=== PATIENT | female | born 1965 ===

== ENCOUNTER 2020-02-26 12:11 | Outpatient (REF) | payer OTHER, SELFPAY ==
--- NOTE | 2020-02-26 13:33 | XR_ITS ---
EXAMINATION: XR BILATERAL WRIST/HANDS CLINICAL INFORMATION: Pain. COMPARISON: None TECHNIQUE: 4 views each hand. FINDINGS: LEFT HAND: There is loss of PIP, DIP and MCP joint space with no bony erosive changes, calcification or loose body seen. No visible acute fracture or dislocation seen. Scaphoid bone is normal. RIGHT HAND: There is mild loss of PIP, DIP and MCP joint space with periarticular spurring. No loose body seen. No periarticular calcification or soft tissue swelling. The scaphoid bone is normal. XR/XR hand wrist LT IMPRESSION: Unremarkable bilateral hand exam.
--- NOTE | 2020-02-26 13:33 | XR_ITS ---
EXAMINATION: XR BILATERAL WRIST/HANDS CLINICAL INFORMATION: Pain. COMPARISON: None TECHNIQUE: 4 views each hand. FINDINGS: LEFT HAND: There is loss of PIP, DIP and MCP joint space with no bony erosive changes, calcification or loose body seen. No visible acute fracture or dislocation seen. Scaphoid bone is normal. RIGHT HAND: There is mild loss of PIP, DIP and MCP joint space with periarticular spurring. No loose body seen. No periarticular calcification or soft tissue swelling. The scaphoid bone is normal. XR/XR hand wrist RT IMPRESSION: Unremarkable bilateral hand exam.
[2020-02-26 13:44] LABS: MANUAL DIFF FLAG NO
[2020-02-26 13:48] LABS: Basophils Percent Auto 0.5 % (0-2); Eosinophils Absolute Auto 0.1 X10*3/uL (0.0-0.4); Eosinophils Percent Auto 2.2 % (0-4); Hematocrit 34.3 % (37-47); Imm Gran Abs Auto 0.01 X10*3/uL (0.00-0.03); Imm Gran Pct Auto 0.2 % (0.0-0.4); Lymphocytes Absolute Auto 1.3 X10*3/uL (1.2-4.9); Lymphocytes Percent Auto 31.4 % (20-40); Mean Corpuscular HGB Conc 32.1 g/dl (31.0-35.0); Mean Corpuscular Hemoglobin 26.7 pg (27.0-33.0); Mean Corpuscular Volume 83.3 fL (80-98); Mean Platelet Volume 10.5 fL (9.4-12.3); Monocytes Absolute Auto 0.3 X10*3/uL (0.1-1.2); Monocytes Percent Auto 6.7 % (2-11); Neutrophils Absolute Auto 2.4 X10*3/uL (2.0-8.3); Platelet Count 197 X10*3/uL (160-400); Red Blood Count 4.12 X10*6/uL (4.20-5.50); White Blood Count 4.1 X10*3/uL (4.8-10.8)
[2020-02-26 14:04] LABS: Glucose Urine UA NEG (NEG); Leukocyte Esterase Urine 1+ (NEG); Nitrite Urine NEG (NEG); PH 5.5 (5.0-8.0); Specific Gravity - Urine >= 1.030 (1.005-1.025); Urine Blood NEG (NEG); Urine Ketones NEG (NEG); Urine Protein NEG (NEG-TRACE)
[2020-02-26 14:09] LABS: Appearance Urine HAZY; Color Urine YELLOW
[2020-02-26 14:19] LABS: Potassium 4.4 mmol/l (3.3-5.1)
[2020-02-26 14:20] LABS: Alanine Aminotransferase 66 U/L (0-31); Albumin Level 4.3 g/dL (3.5-5.0); Alkaline Phosphatase 69 U/L (39-117); Anion Gap 14 (12-20); Aspartate Amino Transferase 44 U/L (5-31); Bilirubin Total 0.2 mg/dL (0.0-1.0); Blood Urea Nitrogen 14 mg/dL (9-16); C Reactive Protein 1.93 mg/dL (< or = 0.50); Calcium 9.1 mg/dL (8.4-10.2); Carbon Dioxide 26 mmol/L (22-29); Chloride 108 mmol/L (96-108); Estimated Glomerular Filt Rate > 60; Glucose Random 275 mg/dL (60-115); Sodium 144 mmol/L (135-145); Total Protein 6.7 g/dL (6.5-8.0)
[2020-02-26 14:24] LABS: Rheumatoid Factor < 15.0 IU/mL (<15.0)
[2020-02-26 14:29] LABS: Bacteria Urine 2+ /LPF; RBC Urine 0 /HPF (0); Squamous Epithelial Cell Urine 3+ /LPF
[2020-02-26 14:30] LABS: Mucus Urine TRACE /LPF
[2020-02-26 14:36] LABS: Erythrocyte Sedimentation Rate 17 MM/HR (0-20)
[2020-02-27 08:03] LABS: HBsAGNum1 0.15 S/CO (0.00-0.99); Hepatitis A Antibody IgM 0.12 Index (0-0.79); Hepatitis B Surface Antigen Negative (Negative); ~Hepatitis A Antibody IgM Nonreactive (Nonreactive)
[2020-02-27 08:18] LABS: HBS Num1 42.28 mIU/mL (0-7.99); HBc Num1 0.05 S/CO (0.00-0.79); Hepatitis B Core Antibody Nonreactive (Nonreactive); ~HepC Num1 0.05 S/CO (0.00-0.79); ~Hepatitis B Surface Antibody REACTIVE (Nonreactive); ~Hepatitis C Antibody Nonreactive (Nonreactive)
[2020-02-27 11:13] LABS: Complement C3 176 mg/dL (83-193)
[2020-02-27 14:01] LABS: Anti DNA DS Antibody <1 IU/mL; Antibody to SS-A Antigen <1.0 NEG AI (<1.0 NEG); Antibody to SS-B Antigen <1.0 NEG AI (<1.0 NEG); SM/Ribonucleoprotein Ab <1.0 NEG AI (<1.0 NEG); Scleroderma 70 Antibody <1.0 NEG AI (<1.0 NEG); Smith Protein <1.0 NEG AI (<1.0 NEG)
[2020-02-27 21:12] LABS: Cyclic Citrullinated Peptide <16 UNITS
[2020-03-01 14:27] LABS: Vitamin D 25-OH, D2 <4 ng/mL; Vitamin D 25-OH, D3 28 ng/mL; Vitamin D 25-OH, Total 28 ng/mL (30-100)
[2020-03-01 15:12] LABS: Anti Nuclear Antibody Pattern Nuclear, Homogeneous; Anti Nuclear Antibody Screen POSITIVE (NEGATIVE); Anti Nuclear Antibody Titer 1:40 titer
== END 2020-02-26 12:12 | disposition home or self-care (01) ==
LOC: HO.LAB 12:11
PROVIDERS: PCP Family Medicine; Referring Provider Family Medicine; Visit Provider Student in an Organized Health Care Education/Training Program
DX: R76.8 Other specified abnormal immunological findings in serum (principal); M35.9 Systemic involvement of connective tissue, unspecified
CPT/HCPCS: 36415; 73110; 73130; 80053; 81001; 82306; 85025; 85652; 86038; 86039; 86140; 86160; 86200; 86225; 86235; 86431; 86704; 86706; 86709; 86803; 87340; 99202

== ENCOUNTER → 2020-05-12 14:41 | Outpatient (BNVA) | payer OTHER, SELFPAY | PROVIDERS: PCP Family Medicine; Visit Provider Student in an Organized Health Care Education/Training Program ==

== ENCOUNTER → 2020-08-19 13:31 | Outpatient (BNVA) | payer OTHER, SELFPAY | PROVIDERS: PCP Family Medicine; Visit Provider Student in an Organized Health Care Education/Training Program | DX: R76.8 Other specified abnormal immunological findings in serum (principal) | CPT/HCPCS: 99212 ==

== ENCOUNTER 2023-09-11 19:03 | Emergency (ER) | payer OTHER, SELFPAY ==
--- NOTE | 2023-09-11 19:14 | ED.GENADULT ---
HPI - General Adult General Chief complaint: General Medical Stated complaint: Hemorrhoids Time Seen by Provider: 09/11/23 20:12 Source: patient and RN notes reviewed Mode of arrival: ambulatory Limitations: no limitations History of Present Illness ED Provider: Tea Nixon PA-C HPI narrative: This is a 58-year-old female, with history of fibromyalgia, diabetes, hyperlipidemia, PTSD, osteoarthritis, who presents emergency department with complaints of external hemorrhoids x2 weeks. Patient states that she has a history of external hemorrhoids in the past which she had to have ?operated on?. [facility] and was started on hydrocortisone/lidocaine cream which she has been using without any relief. She has been also performing Sitz baths without relief. She denies any fevers or chills. She is taking stool softeners. Her hemorrhoid developed after having diarrhea 2 weeks ago. She states that her stools now soft. No bloody or black stool. No other complaints or concerns at this time. MD complaint: Hemorrhoids Onset (ago): week(s) Quality: aching Pain Consistency: constant Relieving factors: none Exacerbating factors: none Associated symptoms: denies other symptoms Treatments prior to arrival: none Related Data Home Medications ?Medication ?Instructions ?Recorded ?Confirmed cholecalciferol (vitamin D3) 25 25 mcg PO DAILY 02/26/20 mcg (1,000 unit) capsule escitalopram oxalate 20 mg tablet 20 mg PO DAILY 02/26/20 gabapentin 100 mg capsule 200 mg PO BID 02/26/20 hydroxychloroquine 200 mg tablet 200 mg PO BID 02/26/20 (Plaquenil) melatonin 3 mg capsule 6 mg PO BEDTIME 02/26/20 meloxicam 15 mg tablet 15 mg PO DAILY 02/26/20 metformin 750 mg tablet,extended 1,500 mg PO DAILY 02/26/20 release 24 hr multivitamin 1 tab PO DAILY 02/26/20 trazodone 100 mg tablet 200 mg PO BEDTIME 02/26/20 Previous Rx's ?Medication ?Instructions ?Recorded prednisone 5 mg tablet See Rx Instructions PO DAILY #30 08/19/20 tabs acetaminophen 500 mg tablet 500 mg PO Q6H PRN pain #30 tabs 09/11/23 (Tylenol Extra Strength) ibuprofen 600 mg tablet 600 mg PO Q6H PRN pain #30 tabs 09/11/23 morphine 15 mg immediate release 15 mg PO Q6H PRN severe pain 09/11/23 tablet (scale score 7-10) #7 tabs acetaminophen 650 mg 650 mg PO Q8H PRN pain #30 tabs 09/12/23 tablet,extended release (Tylenol 8 Hour) docusate calcium 240 mg capsule 240 mg PO BEDTIME #20 caps 09/12/23 ibuprofen 600 mg tablet 600 mg PO Q6H PRN pain #30 tabs 09/12/23 morphine 15 mg immediate release 15 mg PO Q6H PRN severe pain 09/12/23 tablet (scale score 7-10) #10 tabs polyethylene glycol 3350 17 17 g PO DAILY #119 grams 09/12/23 gram/dose oral powder (Miralax) Allergies Allergy/AdvReac Type Severity Reaction Status Date / Time ending in statin AdvReac Severe Muscle Uncoded 09/11/23 23:49 cramps Review of Systems Review of Systems: Yes all other systems are reviewed and are negative Constitutional: Constitutional: Reports as per [facility] Past Medical History Attestation statement: The following information was validated with the patient. Medical History Kidney stone PTSD (post-traumatic stress disorder) Myopia Nonalcoholic steatohepatitis (HAMMONDS) Depression Undifferentiated connective tissue disease Surgical History History of right knee joint replacement H/O: hysterectomy History of cholecystectomy Social History Social History Alcohol intake: current Alcohol intake frequency: a few times a month Alcohol type: wine and hard liquor Patient Tobacco Use Status: Never used Tobacco e-Cigarette/Vaping Use: Never Used Physical Exam ED Vital Signs: Vital Signs - 24 hr 09/11/23 19:15 09/11/23 22:57 Temperature 98.9 F 98.9 F Pulse Rate 101 H 101 H Respiratory Rate 20 20 Blood Pressure 150/87 H 150/87 H Pulse Oximetry 97 97 Oxygen Delivery Method Room Air Room Air BMI result Body Mass Index 42.9 Const General: cooperative, comfortable and no acute distress Orientation/consciousness: patient oriented x3 Limitations: no limitations HENMT Head: Yes normal to inspection, Yes normocephalic and Yes atraumatic Ears: hearing grossly normal bilaterally General nose exam: Normal external nose present Face and sinus: Yes normal facial exam Mouth: Normal oral and palatal mucosa present, oropharynx normal and moist mucous membranes Throat: Yes posterior oropharynx normal Eyes General: appearance normal, both eyes and all related structures Eyelids: Yes eyelids normal Conjunctivae: conjunctivae normal Sclerae: sclerae normal Pupils: Equal, round and reactive pupils present EOM: EOMs intact bilaterally Neck Neck: Yes normal visual inspection, Yes full ROM and Yes no lymphadenopathy Lymphatic: no lymphadenopathy noted Chest Chest palpation & inspection: normal inspection of the chest Resp Effort & Inspection: normal respiratory effort and able to speak in complete sentences Auscultation: clear to auscultation bilaterally, no crackles, no rales, no rhonchi and no wheezes Cardio Rate: regular rate Rhythm: regular rhythm Heart sounds: S1 normal heart sound present and S2 normal heart sound present GI Other: External hemroid noted at the 3 oclock position with punctate thombosed region noted at the 11 o clock position, exquisitely tender to palpation. Inspection: Yes normal to inspection Skin General skin exam: no rashes or lesions noted Trauma: no lacerations or abrasions Wounds: no wounds Neuro General: patient oriented x3 and moves all extremities Cranial nerves: Yes Equal, round and reactive pupils present Extrem General: Yes normal to inspection Right upper extremity: normal to inspection Left upper extremity: normal to inspection Right lower extremity: normal to inspection Left lower extremity: normal to inspection Course Course Course Narrative: This is a Rapid Medical Exam performed in triage by Grace Hernandez PA-C. Full HPI, ROS and PE to be performed by primary ED provider. 58 year-old F w/ PMHx hemorrhoids w/hemorrhoidectomy presenting to the ED c/o worsening rectal pain due to hemorrhoids. Has been using hydrocortisone/lidocaine cream w/o relief, states she cannot sit. Reports some bleeding initially but not anymore. denies abdominal pain PE: standing during entire triage Plan: Physical exam Medications Administered Discontinued Medications Generic Name Dose Route Start Last Admin Trade Name Troy PRN Reason Stop Dose Admin Lidocaine 1 appl 09/11/23 20:50 09/11/23 21:05 Lidocaine 5 % Ointment 35 Gm TOPICAL 09/11/23 20:51 1 appl ONCE ONE Administration Protocol Lidocaine HCl 5 ml 09/11/23 22:17 09/11/23 22:41 Lidocaine Hcl 1 % Mpf 5 Ml Vial INFILTRATI 09/11/23 22:18 5 ml ONCE ONE Administration Morphine Sulfate 4 mg 09/11/23 20:50 09/11/23 21:04 Morphine Sulfate 4 Mg/Ml Cartridge IVPUSH 09/11/23 20:51 4 mg ONCE ONE Administration Protocol Procedures Procedure Narrative Procedure Narrative: -anal area was cleaned with Betadine -5 mL of 1% lidocaine without epinephrine were injected -horizontal elliptical shape incision was made, large blood clot was extracted -packing was applied -patient tolerated well the procedure Medical Decision Making Medical Decision Making MDM Narrative: This is a 58-year-old female, with history of fibromyalgia, diabetes, hyperlipidemia, PTSD, osteoarthritis, who presents emergency department with complaints of external hemorrhoids x2 weeks. On arrival, vital signs revealing slightly hypertensive at 150/87, pulse 101, likely secondary to pain. She is afebrile. Examination was performed with my attending physician, Dr. Schmidt who recommends excision of thrombosed hemorroid, this was performed by my attending physician. Pt pre-medicated with morphine and topical lidocaine administered. See procedure note for further detail. She tolerated the procedure well without any complications or concerns. She was discharged on morphine, ibuprofen/tylenol; given lidocaine topically; encouraged to utilize stool softeners/laxatives to prevent constipation. Also given referral to f/u with general surgery. Differential Diagnosis Differential Diagnoses: The differential diagnosis associated with the presentation includes Abscess, hemorroid, thrombosed hemorroid Discharge Plan Discharge Clinical Impression: Acute hemorrhoid Patient Disposition: Home, Self-Care Instructions: Hemorrhoids (ED), Sitz Bath (DC), Thrombosed Hemorrhoid (ED) Additional Instructions: You were seen in the emergency department due to a hemorrhoid. Continue using the topical lidocaine that we provided to you in the emergency room, especially use this prior to bowel movements. Take morphine as needed for severe pain only. Please alternate between ibuprofen and Tylenol as needed for pain, morphine for severe pain only. Continue performing Sitz baths. Please call Dr. Fallon tomorrow morning. If any new or worsening symptoms occur including but not limited to fevers, chills, worsening pain, swelling, please return for re-evaluation. Prescriptions: New ibuprofen 600 mg tablet 600 mg PO Q6H PRN (Reason: pain) Qty: 30 0RF acetaminophen [Tylenol Extra Strength] 500 mg tablet 500 mg PO Q6H PRN (Reason: pain) Qty: 30 0RF morphine 15 mg tablet 15 mg PO Q6H PRN (Reason: severe pain (scale score 7-10)) Qty: 7 0RF Rx Instructions: Partial Fill upon patient request. No Action morphine 15 mg tablet 15 mg PO Q6H PRN (Reason: severe pain (scale score 7-10)) Qty: 10 0RF Rx Instructions: Partial Fill upon patient request. ibuprofen 600 mg tablet 600 mg PO Q6H PRN (Reason: pain) Qty: 30 0RF acetaminophen [Tylenol 8 Hour] 650 mg tablet extended release 650 mg PO Q8H PRN (Reason: pain) Qty: 30 0RF polyethylene glycol 3350 [Miralax] 17 gram/dose powder 17 g PO DAILY Qty: 119 0RF docusate calcium 240 mg capsule 240 mg PO BEDTIME Qty: 20 0RF hydroxychloroquine [Plaquenil] 200 mg tablet 200 mg PO BID meloxicam 15 mg tablet 15 mg PO DAILY metformin 750 mg tablet extended release 24 hr 1,500 mg PO DAILY trazodone 100 mg tablet 200 mg PO BEDTIME escitalopram oxalate 20 mg tablet 20 mg PO DAILY cholecalciferol (vitamin D3) 25 mcg (1,000 unit) capsule 25 mcg PO DAILY multivitamin Tablet 1 tab PO DAILY gabapentin 100 mg capsule 200 mg PO BID melatonin 3 mg capsule 6 mg PO BEDTIME prednisone 5 mg tablet See Rx Instructions PO DAILY Qty: 30 0RF Rx Instructions: Take 4 tabs x 3 days, 3 tabs x 3 days, 2 tabs x 3 days, 1 tab x 3 days Referrals: [facility] [place] General Surgeons [Provider Group] Stand Alone Forms: Work/School Release Interventions: ED Discharge Assessment Last Done: 09/11/23 22:57 Discharge Date/Time: 09/11/23 22:57 Print Language: Colombian
[2023-09-11 19:15] VITALS: BP 150/87; PULSE 101; RESP 20; TEMP 37.2; O2SAT 97; BMI 42.9
[2023-09-11] MEDS: Morphine Sulfate 4 MG/ML CARTRIDGE IVPUSH (21:04)
[2023-09-11] MEDS: Lidocaine 5 % Ointment 35 GM 1 APPL TOPICAL (21:05)
[2023-09-11] MEDS: Lidocaine HCl 1 % MPF 5 ML VIAL INFILTRATI (22:41)
[2023-09-11 22:57] VITALS: BP 150/87; PULSE 101; RESP 20; TEMP 37.2; O2SAT 97
== END 2023-09-11 22:57 | disposition home or self-care (01) ==
PROVIDERS: Emergency Provider Emergency Medicine; PCP Internal Medicine
DX: K64.5 Perianal venous thrombosis (principal)
CPT/HCPCS: 46083; 96372; 99284; J2270

== ENCOUNTER 2023-09-11 23:40 | Emergency (ER) | payer OTHER, SELFPAY ==
[2023-09-11 23:49] VITALS: BP 137/97; PULSE 92; RESP 18; TEMP 36.8; O2SAT 99; BMI 42.9
--- NOTE | 2023-09-11 23:53 | ED_ITS ---
HPI - General Adult General Chief complaint: General Medical Stated complaint: rectal pain Time Seen by Provider: 09/11/23 23:45 Source: patient and RN notes reviewed Mode of arrival: ambulatory Limitations: no limitations History of Present Illness ED Provider: Tea Nixon PA-C HPI narrative: This is a 58-year-old female, with a history of thrombosed external hemorrhoid, and PTSD who presents emergency department with severe rectal pain. Patient was discharged about an hour and a half ago after having a thrombosed hemorrhoid excised. She went to the pharmacy however the medications were not available, she states that she has had a burning and severe pain to her rectum for the last 45 minutes. No fevers or chills. No chest pain or shortness breast. She endorses history of PTSD and states that she is feeling very overwhelmed at this time. MD complaint: Rectal pain Onset (ago): day(s) Radiation: non-radiation Severity: moderate Quality: burning Pain Consistency: constant Relieving factors: none Exacerbating factors: none Associated symptoms: denies other symptoms Treatments prior to arrival: none Related Data Home Medications ?Medication ?Instructions ?Recorded ?Confirmed cholecalciferol (vitamin D3) 25 25 mcg PO DAILY 02/26/20 mcg (1,000 unit) capsule escitalopram oxalate 20 mg tablet 20 mg PO DAILY 02/26/20 gabapentin 100 mg capsule 200 mg PO BID 02/26/20 hydroxychloroquine 200 mg tablet 200 mg PO BID 02/26/20 (Plaquenil) melatonin 3 mg capsule 6 mg PO BEDTIME 02/26/20 meloxicam 15 mg tablet 15 mg PO DAILY 02/26/20 metformin 750 mg tablet,extended 1,500 mg PO DAILY 02/26/20 release 24 hr multivitamin 1 tab PO DAILY 02/26/20 trazodone 100 mg tablet 200 mg PO BEDTIME 02/26/20 Previous Rx's ?Medication ?Instructions ?Recorded prednisone 5 mg tablet See Rx Instructions PO DAILY #30 08/19/20 tabs acetaminophen 500 mg tablet 500 mg PO Q6H PRN pain #30 tabs 09/11/23 (Tylenol Extra Strength) ibuprofen 600 mg tablet 600 mg PO Q6H PRN pain #30 tabs 09/11/23 morphine 15 mg immediate release 15 mg PO Q6H PRN severe pain 09/11/23 tablet (scale score 7-10) #7 tabs acetaminophen 650 mg 650 mg PO Q8H PRN pain #30 tabs 09/12/23 tablet,extended release (Tylenol 8 Hour) docusate calcium 240 mg capsule 240 mg PO BEDTIME #20 caps 09/12/23 ibuprofen 600 mg tablet 600 mg PO Q6H PRN pain #30 tabs 09/12/23 morphine 15 mg immediate release 15 mg PO Q6H PRN severe pain 09/12/23 tablet (scale score 7-10) #10 tabs polyethylene glycol 3350 17 17 g PO DAILY #119 grams 09/12/23 gram/dose oral powder (Miralax) Allergies Allergy/AdvReac Type Severity Reaction Status Date / Time ending in statin AdvReac Severe Muscle Uncoded 09/11/23 23:49 cramps Review of Systems Review of Systems: Yes all other systems are reviewed and are negative Constitutional: Constitutional: Reports as per [facility] Past Medical History Attestation statement: The following information was validated with the patient. Medical History Kidney stone PTSD (post-traumatic stress disorder) Myopia Nonalcoholic steatohepatitis (HAMMONDS) Depression Undifferentiated connective tissue disease Surgical History History of right knee joint replacement H/O: hysterectomy History of cholecystectomy Social History Social History Alcohol intake: current Alcohol intake frequency: a few times a month Alcohol type: wine and hard liquor Patient Tobacco Use Status: Never used Tobacco e-Cigarette/Vaping Use: Never Used Advance Directives: Yes Advance Directives Information Provided: No Advance Directives on File: No Physical Exam ED Vital Signs: Vital Signs - 24 hr 09/11/23 23:49 09/12/23 00:17 09/12/23 01:57 Temperature 98.2 F 97.6 F 98.1 F Pulse Rate 92 71 77 Respiratory Rate 18 18 16 Blood Pressure 137/97 H 119/42 L 108/46 L Pulse Oximetry 99 97 97 Oxygen Delivery Method Room Air Room Air Room Air BMI result Body Mass Index 42.9 Const Other: Anxious appearing General: cooperative and comfortable Limitations: no limitations HENNC Head: Yes normal to inspection, Yes normocephalic and Yes atraumatic Ears: hearing grossly normal bilaterally General nose exam: Normal external nose present Face and sinus: Yes normal facial exam Mouth: Normal oral and palatal mucosa present, oropharynx normal and moist mucous membranes Throat: Yes posterior oropharynx normal Eyes General: appearance normal, both eyes and all related structures Eyelids: Yes eyelids normal Conjunctivae: conjunctivae normal Sclerae: sclerae normal Pupils: Equal, round and reactive pupils present EOM: EOMs intact bilaterally Neck Neck: Yes normal visual inspection, Yes full ROM and Yes no lymphadenopathy Lymphatic: no lymphadenopathy noted Chest Chest palpation & inspection: normal inspection of the chest Resp Effort & Inspection: normal respiratory effort and able to speak in complete sentences Auscultation: clear to auscultation bilaterally, no crackles, no rales, no rhonchi and no wheezes Cardio Rate: regular rate Rhythm: regular rhythm Heart sounds: S1 normal heart sound present and S2 normal heart sound present GI Other: 4 cm external hemorrhoid noted, no surrounding erythema, fluctuance, tender to palpation. Wick in place. Inspection: Yes normal to inspection Skin General skin exam: no rashes or lesions noted Trauma: no lacerations or abrasions Wounds: no wounds Neuro General: moves all extremities Cranial nerves: Yes Equal, round and reactive pupils present Extrem General: Yes normal to inspection Right upper extremity: normal to inspection Left upper extremity: normal to inspection Right lower extremity: normal to inspection Left lower extremity: normal to inspection Course Reevaluation(s) Reevaluation #1: Patient feeling much better however is fearing to be discharged home as she is afraid that her pain will return significantly. I discussed case with my attending physician, will attempt to admit for intractable pain. Page sent to hospitalist for further management Time: 00:50 Reevaluation #2: Case discussed with hospitalist, Dr. Corado. Patient remains somewhat comfortable, reporting some achiness and burning sensation around the rectum however much more managed. The patient reports that she has borderline personality disorder with dissociation. She states that she dissociates into multiple personalities; and states that on arrival, she was a small little girl . She states that this happens when she is under severe stress. She denies any SI or HI. She is not feeling that way anymore now that her pain is managed. Dr. Corado discussed that admission is not warranted at this time but is recommending to monitor until about 4:00 a.m. to ensure that her pain has not returned. At that time if her pain does return, will reconsider admission. Time: 01:30 Reevaluation #3: Sign-out given to attending physician, Dr. Sanchez pending re-evaluation +/- admission. Time: 01:51 Medications Administered Discontinued Medications Generic Name Dose Route Start Last Admin Trade Name Troy PRN Reason Stop Dose Admin Acetaminophen 975 mg 09/12/23 01:35 09/12/23 02:01 Acetaminophen 325 Mg Tablet PO 09/12/23 01:36 975 mg ONCE ONE Administration Ketorolac Tromethamine 30 mg 09/11/23 23:46 09/12/23 00:07 Ketorolac Tromethamine 30 Mg/Ml Vial IVPUSH 09/11/23 23:47 30 mg ONCE ONE Administration Lorazepam 1 mg 09/11/23 23:51 09/12/23 00:00 Lorazepam 2 Mg/Ml Vial IVPUSH 09/11/23 23:52 1 mg ONCE ONE Administration Morphine Sulfate 4 mg 09/12/23 00:03 09/12/23 00:07 Morphine Sulfate 4 Mg/Ml Cartridge IVPUSH 09/12/23 00:04 4 mg ONCE ONE Administration Protocol Medical Decision Making Medical Decision Making MDM Narrative: This is a 58-year-old female, with a history of PTSD, who presents emergency department with complaints of severe rectal pain after thrombosed hemorrhoid excision which occurred 2 hours ago. On arrival, patient appears to be under distress secondary to pain. Case discussed with my attending physician, recommending pain management, and ativan. Will continue to closely monitor. Differential Diagnosis Differential Diagnoses: The differential diagnosis associated with the presentation includes thrombosed hemorrhoid, abscess, hemorrhoid, intractable pain Discharge Plan Discharge Clinical Impression: Hemorrhoid Patient Disposition: Still a Patient Instructions: Hemorrhoids (ED), Sitz Bath (DC), Thrombosed Hemorrhoid (ED) Additional Instructions: You were seen in the emergency department due to a hemorrhoid. Continue using the topical lidocaine that we provided to you in the emergency room, especially use this prior to bowel movements. Take morphine as needed for severe pain only. Please alternate between ibuprofen and Tylenol as needed for pain, morphine for severe pain only. Continue performing Sitz baths. Please call Dr. Fallon tomorrow morning. If any new or worsening symptoms occur including but not limited to fevers, chills, worsening pain, swelling, please return for re-evaluation. Prescriptions: New morphine 15 mg tablet 15 mg PO Q6H PRN (Reason: severe pain (scale score 7-10)) Qty: 10 0RF Rx Instructions: Partial Fill upon patient request. ibuprofen 600 mg tablet 600 mg PO Q6H PRN (Reason: pain) Qty: 30 0RF acetaminophen [Tylenol 8 Hour] 650 mg tablet extended release 650 mg PO Q8H PRN (Reason: pain) Qty: 30 0RF polyethylene glycol 3350 [Miralax] 17 gram/dose powder 17 g PO DAILY Qty: 119 0RF docusate calcium 240 mg capsule 240 mg PO BEDTIME Qty: 20 0RF No Action ibuprofen 600 mg tablet 600 mg PO Q6H PRN (Reason: pain) Qty: 30 0RF acetaminophen [Tylenol Extra Strength] 500 mg tablet 500 mg PO Q6H PRN (Reason: pain) Qty: 30 0RF morphine 15 mg tablet 15 mg PO Q6H PRN (Reason: severe pain (scale score 7-10)) Qty: 7 0RF Rx Instructions: Partial Fill upon patient request. hydroxychloroquine [Plaquenil] 200 mg tablet 200 mg PO BID meloxicam 15 mg tablet 15 mg PO DAILY metformin 750 mg tablet extended release 24 hr 1,500 mg PO DAILY trazodone 100 mg tablet 200 mg PO BEDTIME escitalopram oxalate 20 mg tablet 20 mg PO DAILY cholecalciferol (vitamin D3) 25 mcg (1,000 unit) capsule 25 mcg PO DAILY multivitamin Tablet 1 tab PO DAILY gabapentin 100 mg capsule 200 mg PO BID melatonin 3 mg capsule 6 mg PO BEDTIME prednisone 5 mg tablet See Rx Instructions PO DAILY Qty: 30 0RF Rx Instructions: Take 4 tabs x 3 days, 3 tabs x 3 days, 2 tabs x 3 days, 1 tab x 3 days [place] [facility] [place] Group] Print Language: Lithuanian
[2023-09-12] MEDS: LORazepam 2 MG/ML VIAL 1 MG IVPUSH
[2023-09-12] MEDS: Morphine Sulfate 4 MG/ML CARTRIDGE IVPUSH (00:07)
[2023-09-12] MEDS: Ketorolac Tromethamine 30 MG/ML VIAL IVPUSH (00:07)
[2023-09-12 00:17] VITALS: BP 119/42; PULSE 71; RESP 18; TEMP 36.4; O2SAT 97
[2023-09-12 01:57] VITALS: BP 108/46; PULSE 77; RESP 16; TEMP 36.7; O2SAT 97
[2023-09-12] MEDS: Acetaminophen 325 MG TABLET 975 MG PO (02:01)
[2023-09-12 02:44] VITALS: BP 131/60; PULSE 71; PULSE 72; RESP 16; TEMP 36.7; O2SAT 95
[2023-09-12 02:48] VITALS: BP 131/60; PULSE 72; RESP 16; TEMP 36.7; O2SAT 95
== END 2023-09-12 02:49 | disposition home or self-care (01) ==
PROVIDERS: Emergency Provider Emergency Medicine; PCP Internal Medicine
DX: K64.9 Unspecified hemorrhoids (principal); K62.89 Other specified diseases of anus and rectum
CPT/HCPCS: 96374; 96375; 99284; J1885; J2060; J2270

== ENCOUNTER 2023-09-13 14:02 | Outpatient (AMB) | payer OTHER, SELFPAY ==
--- NOTE | 2023-09-13 14:04 | MHC.OFFVIS ---
Intake Visit Reasons: Painful Hemorrhoids, constipation Intake Note: This patient presents for [facility] [place] follow-up for constipation, painful hemorrhoids. Patient c/o; reports rectal bleeding, reports pain, reports has not had a bowel movement in 48 hours and she is taking two different stool softners, reports she is a diabetic with well controlled sugars, A1c of 6.2, unable to sit. 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 Accompanied by: Sister Allergies ending in statin Adverse Reaction (Severe, Uncoded 09/13/23 14:16) Muscle cramps Medication List - Last Reconciled 09/13/23 by Daniel Fallon MD acetaminophen (Tylenol Extra Strength) 500 mg PO Q6H PRN acetaminophen ER (Tylenol 8 Hour) 650 mg PO Q8H PRN cholecalciferol (vitamin D3) 25 mcg PO DAILY docusate calcium 240 mg PO BEDTIME escitalopram oxalate 20 mg PO DAILY gabapentin 200 mg PO BID hydroxychloroquine (Plaquenil) 200 mg PO BID ibuprofen 600 mg PO Q6H PRN ibuprofen 600 mg PO Q6H PRN melatonin 6 mg PO BEDTIME meloxicam 15 mg PO DAILY metformin ER 1,500 mg PO DAILY morphine 15 mg PO Q6H PRN morphine 15 mg PO Q6H PRN multivitamin 1 tab PO DAILY polyethylene glycol 3350 (Miralax) 17 grams PO DAILY prednisone Take 4 tabs x 3 days, 3 tabs x 3 days, 2 tabs x 3 days, 1 tab x 3 days trazodone 200 mg PO BEDTIME HPI HPI Painful Hemorrhoids, constipation: Details: [age] year old female referred for painful hemorrhoids. She says she has had swollen hemorrhoids for more than 2 weeks now. She says she went to the ER few days ago and she was told she has a thrombosed hemorrhoid. I had an I&D was done. However, she had poor can control so she went back to the ER thereafter. She said she had removed her packing. She says she was given morphine and feels that this is too strong for her. She has been constipated and has had no good bowel movement in about 2 days now. She says she is still uncomfortable with sitting down. She says she had a packing which she removed yesterday. [facility] Medical History (Updated 09/13/23 @ 14:38 by Daniel Fallon MD) Thrombosed hemorrhoids Kidney stone PTSD (post-traumatic stress disorder) Myopia Nonalcoholic steatohepatitis (HAMMONDS) Depression Undifferentiated connective tissue disease Surgical History History of right knee joint replacement H/O: hysterectomy History of cholecystectomy Social History Alcohol intake: current Alcohol intake frequency: a few times a month Alcohol type: wine and hard liquor Patient Tobacco Use Status: Never used Tobacco e-Cigarette/Vaping Use: Never Used Review of Systems Const Denies chills and Denies fever(s) Card Denies chest pain, Denies dyspnea and Denies dyspnea on exertion Resp Denies cough, Denies dyspnea and Denies dyspnea on exertion GI Denies hematochezia, Denies change in bowel habits and Reports constipation Denies hematuria Musc Denies back pain and Denies limited range of motion Neuro Denies focal weakness and Denies convulsions Psych Denies depression and Denies mood swings Physical Exam Const General: no acute distress Resp Effort & Inspection: normal respiratory effort Cardio Rate: regular rate GI Other: Rectal exam shows swollen hemorrhoids with some thrombosis, external, mostly in the right side, no pus, no induration, no cellulitis Assessment & Plan Assessment & Plan (1) Thrombosed hemorrhoids: Code(s): K64.5 - Perianal venous thrombosis Category: Medical Plan: She had undergone I and D for thrombosed hemorrhoids in the ER. She still has residual swollen hemorrhoids along with some areas with thrombosis I have instructed her to continue to do hot Sitz baths as often as she can. I will prescribe her Percocet for pain. She can continue with ibuprofen as well. She is taking MiraLax so she can continue this for constipation. I will prescribe her citrate in case she does not have any bowel movement after 2-3 more days She says she already has an appointment with me next week. We will re-evaluate her and discuss the next step in her care. Coding Level of Care Code New Pt Level 3 (93503) Diagnoses Thrombosed hemorrhoids K64.5
== END 2023-09-13 14:38 | disposition home or self-care (01) ==
LOC: HO.HGS 14:02
PROVIDERS: PCP Internal Medicine; Visit Provider Surgery
DX: K64.5 Perianal venous thrombosis (principal)
CPT/HCPCS: 99203

== ENCOUNTER → 2023-09-13 14:02 | Outpatient (BNVA) | payer OTHER, SELFPAY | PROVIDERS: PCP Internal Medicine; Visit Provider Surgery | DX: K64.5 Perianal venous thrombosis (principal) | CPT/HCPCS: 99202 ==

== ENCOUNTER 2023-09-17 14:24 | Outpatient (AMB) | payer OTHER, SELFPAY ==
--- NOTE | 2023-09-17 14:39 | A.OFFVIS_ITS ---
Vital Signs 09/17/23 14:47 Height 5 ft 4 in Weight 253 lb BMI 43.4 Pulse 72 Intake Visit Reasons: hemorrhoids,constipation Intake Note: This patient presents for hemorrhoids,constipation follow-up. 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 I had seen her last week because of swollen hemorrhoids for more than 2 weeks now. She says she went to the ER last week and she was told she has a thrombosed hemorrhoid. I had an I&D was done. She eventually had her packing removed in the ER. She says she was given morphine and feels that this is too strong for her. She has been constipated as well but now has had bowel movements over the weekend. She feels much better with regards to pain but she does still feel her hemorrhoids being swollen. She denies any bleeding. She says she has had hemorrhoids in the past as well and feels that she wants these hemorrhoids removed because of recurrent issues. [facility] Medical History (Updated 09/17/23 @ 15:06 by Daniel Fallon MD) Morbid obesity Thrombosed hemorrhoids Kidney stone PTSD (post-traumatic stress disorder) Myopia Nonalcoholic steatohepatitis (HAMMONDS) Depression Undifferentiated connective tissue disease Surgical History History of right knee joint replacement H/O: hysterectomy History of cholecystectomy Social History Alcohol intake: current Alcohol intake frequency: a few times a month Alcohol type: wine and hard liquor Patient Tobacco Use Status: Never used Tobacco e-Cigarette/Vaping Use: Never Used Review of Systems Const Denies chills and Denies fever(s) Card Denies chest pain, Denies dyspnea and Denies dyspnea on exertion Resp Denies cough, Denies dyspnea and Denies dyspnea on exertion GI Denies hematochezia, Denies change in bowel habits and Reports constipation Denies hematuria Musc Reports abnormal gait, Reports back pain, Reports arthralgias and Reports limited range of motion Neuro Reports abnormal gait, Denies focal weakness and Denies convulsions Psych Denies depression and Denies mood swings Physical Exam Vital Signs: Last Vital Signs Pulse 72 09/17/23 14:47 BMI result Body Mass Index 43.4 Const Other: Appears obese General: comfortable and no acute distress Orientation/consciousness: patient oriented x3 Neck Neck: Yes no lymphadenopathy Resp Auscultation: clear to auscultation bilaterally Cardio Rhythm: regular rhythm GI Other: Rectal exam shows large hemorrhoids mostly on the right side with areas of thrombosis although smaller compared to last week, still mildly tender, no induration, discharge Palpation (GI): Soft to palpation, nontender and no guarding Neuro General: patient oriented x3 Assessment & Plan Assessment & Plan (1) Thrombosed hemorrhoids: Code(s): K64.5 - Perianal venous thrombosis Category: Medical Plan: She feels much better now with regards to pain. However she says she has had problems for a long time as well and she wants to proceed with hemorrhoidectomy. I had a long discussion with her about the technique of exam under anesthesia and hemorrhoidectomy. I explained to her the risks including but not limited to bleeding, infection, postop pain, sphincter injury, as well as the benefits and alternatives. I reviewed with her what to expect postoperatively. I explained to her what would recur with regards to postop care She understands that she may have severe pain from the procedure She however wants to proceed at this time. Coding Level of Care Code Est Pt Level 3 (34848) Diagnoses Thrombosed hemorrhoids K64.5
[2023-09-17 14:47] VITALS: PULSE 72; BMI 43.4
== END 2023-09-17 15:12 | disposition home or self-care (01) ==
PROVIDERS: PCP Internal Medicine; Visit Provider Surgery
DX: K64.5 Perianal venous thrombosis (principal)
CPT/HCPCS: 99214

== ENCOUNTER → 2023-09-17 14:24 | Outpatient (BNVA) | payer OTHER, SELFPAY | PROVIDERS: PCP Internal Medicine; Visit Provider Surgery | DX: K64.5 Perianal venous thrombosis (principal) | CPT/HCPCS: 99212 ==

== ENCOUNTER 2023-09-28 11:37 | Day surgery (SDC) | payer OTHER, SELFPAY ==
[2023-09-28] VITALS (10 sets, daily range): BP systolic 112–140; BP diastolic 63–85; PULSE 59–74; RESP 15–20; TEMP 36.4; O2SAT 94–100; BMI 43.3
[2023-09-28 12:50] LABS: Glucose, Whole Blood 135 mg/dL (60-115)
--- NOTE | 2023-09-28 12:50 | MHC.SHP ---
Pre-Procedural Eval Section A - 24 Hr Update-Section A only Date of Service: 09/28/23 The patient is an INPATIENT: No Changes since office visit: No Cold of Flu in the past 2 weeks, No New Medical Problems, No Changes in Medication and No Patient answered all questions The patient has been examined within 24 hours of the surgical procedure. The History & Physical has been completed within 30 days and I have reviewed it.: Yes Section B - Complete if H&P > 30 days Chief Complaint: Perianal venous thrombosis Allergies: Allergies Allergy/AdvReac Type Severity Reaction Status Date / Time ending in statin AdvReac Severe Muscle Uncoded 09/28/23 12:24 cramps Plan I have reviewed the history and physical and performed a pertinent physical examination on my patient. No changes have occurred unless specified. Time Spent With Patient Time: Total time managing care of this patient today ____ minutes.
--- NOTE | 2023-09-28 13:08 | HO.ANESPROP2 ---
HPI - Anesthesia Eval Consult details Narrative: for hemorrhoidectomy PMFSH Active Problems Active Problems: All Active Problems MEG positive (Acute) Morbid obesity (Acute) Thrombosed hemorrhoids (Acute) Undifferentiated connective tissue disease (Acute) Past Medical History Medical History (Updated 09/28/23 @ 12:22 by Umm Moyer, DANY) Osteoarthritis Hyperlipidemia Diabetes Fibromyalgia Morbid obesity Thrombosed hemorrhoids Kidney stone PTSD (post-traumatic stress disorder) Myopia Nonalcoholic steatohepatitis (HAMMONDS) Depression Undifferentiated connective tissue disease Family History Family history of problems with anesthesia: No Surgical History Surgical History (Updated 09/28/23 @ 12:24 by Umm Moyer, DANY) Hx of hemorrhoidectomy Hx of appendectomy History of total left knee replacement Hx of section Hx of tonsillectomy Hx of left inguinal hernia repair History of right knee joint replacement H/O: hysterectomy History of cholecystectomy History of Problems with Anesthesia: No Social History Social History Alcohol intake: current Alcohol intake frequency: a few times a month Alcohol type: wine and hard liquor Patient Tobacco Use Status: Never used Tobacco e-Cigarette/Vaping Use: Never Used Advance Directives: No Advance Directives Information Provided: Yes Meds Allergies Allergy/AdvReac Type Severity Reaction Status Date / Time ending in statin AdvReac Severe Muscle Uncoded 09/28/23 12:24 cramps Active Medications: Current Medications Lactated Ringer's (Lr) 1,000 mls @ 100 mls/hr IVCONT .Q10H DEBRA Home Medications ?Medication ?Instructions ?Recorded ?Confirmed ?Last Taken ?Type cholecalciferol (vitamin D3) 25 25 mcg PO DAILY 02/26/20 09/28/23 Unknown History mcg (1,000 unit) capsule escitalopram oxalate 20 mg tablet 20 mg PO DAILY 02/26/20 09/28/23 09/28/23 08:00 History hydroxychloroquine 200 mg tablet 200 mg PO BID 02/26/20 09/28/23 Unknown History (Plaquenil) melatonin 3 mg capsule 6 mg PO BEDTIME 02/26/20 09/28/23 Unknown History metformin 750 mg tablet,extended 1,500 mg PO DAILY 02/26/20 09/28/23 Unknown History release 24 hr multivitamin 1 tab PO DAILY 02/26/20 09/28/23 Unknown History trazodone 100 mg tablet 200 mg PO BEDTIME 02/26/20 09/28/23 Unknown History diclofenac sodium 1 % topical gel 2 g topical QID PRN autoimmune 09/28/23 09/28/23 Unknown History flare up quetiapine 25 mg tablet (Seroquel) 25 mg PO BEDTIME PRN Insomnia 09/28/23 09/28/23 Unknown History valacyclovir 1 gram tablet 1,000 mg PO BID PRN herpes break 09/28/23 09/28/23 Unknown History (Valtrex) out Exam Pertinent Lab Results Pertinent Lab Results: Laboratory Tests 09/28/23 12:40 POC Glucose 135 H Airway Mallampati Class: II TM Dist: <=3cm Neck ROM: Full Heart: ok Lungs: ok Assessment and Plan Assessment Anesthesia Assessment: Anesthesia Plan Discussed and Chart Reviewed Final Anesthetic Review Family History of Problems with Anesthesia: No History of Problems with Anesthesia: No NPO: Yes ASA Class: III Final Preanesthetic Review: No Changes in Pt Med Stat, Meds/Allgs Chart Reviewed, Consent Obtained/Reviewed and Anes Risks/Benef Reviewed Patient Risk: Intermediate Procedure Risk: Intermediate Anesthetic Plan Anesthetic Plan: GA and Agree w/ Assess. and Plan Disposition: Standard PACU
--- NOTE | 2023-09-28 14:16 | W.PM.OPN ---
Operative Note Operative Note Date of Service: 09/28/23 Narrative: Preop diagnosis: Thrombosed hemorrhoids with pain and bleeding Postop diagnosis: The same, internal external Procedure: Exam under anesthesia hemorrhoidectomy x2 columns Surgeon: Daniel Fallon MD The patient is a 58-year-old female who has had problems with pain and bleeding with her hemorrhoids. She had a recently thrombosed hemorrhoids with associated significant pain. She was noted to have large internal external hemorrhoids. She therefore wanted to proceed with hemorrhoidectomy. She understood the technique of the planned procedure. She was aware of the risks, benefits, alternatives. She was brought to the operating room. She was placed in prone bishop-knife position under general anesthesia via general mask airway. The buttocks were retracted with wide tape laterally. The perianal area was prepped and draped in usual sterile fashion. A surgical time-out was done. The patient received Cefotan 2 g IV preoperatively There was note of large columns of internal external hemorrhoids on the left and right side. The hemorrhoidal column on the right was larger. I applied a Nieto grasper on this to retract this out into the field. I made a cnaqwt-ry-pilmn stitch at the pedicle using a chromic 3-0. I made an incision around this column to the perianal skin with a blade 15. I excised this hemorrhoidal column above the plane of the sphincters using fine scissors. I closed this incision with a running chromic 3-0 stitch. Multiple additional hemostatic aqdkgi-xi-knwid sutures were placed for oozing areas The same procedure was duplicated on the hemorrhoidal column on the left side. Again this was retracted with a Nieto graspers. A gexcmv-pz-vajvq stitch was placed at the pedicle with a chromic 3-0. I made an incision around this hemorrhoidal column to the perianal skin blade 15. I excised this above the plane of the sphincters using scissors. I closed the incisions with a running chromic 3-0 stitch with additional hemostatic sutures being placed for oozing areas Once hemostasis was confirmed, I infiltrated the perianal area with Marcaine 0.5% for postop analgesia. I applied a rolled Gelfoam pack into the anal canal. The procedure was then completed The patient tolerated procedure well. There were no immediate complications. Initial and final counts of sponges and instruments were correct. Estimated blood loss about 25 cc The patient was extubated without difficulty transferred to recovery room with stable vital signs.
[2023-09-28] MEDS: HYDROmorphone HCl 0.5 MG/0.5 ML SYRINGE IVPUSH ×2 (14:45→15:00)
== END 2023-09-28 15:32 | disposition home or self-care (01) ==
PROVIDERS: PCP Internal Medicine; Visit Provider Surgery
PROC: (CPT 46260; principal; 2023-09-28 14:40)
DX: K64.8 Other hemorrhoids (principal); K64.4 Residual hemorrhoidal skin tags; K59.00 Constipation, unspecified; K75.81 Nonalcoholic steatohepatitis (NASH); N20.0 Calculus of kidney; E11.9 Type 2 diabetes mellitus without complications; L94.8 Other specified localized connective tissue disorders; F32.A Depression, unspecified; F43.10 Post-traumatic stress disorder, unspecified; H52.10 Myopia, unspecified eye; E66.01 Morbid (severe) obesity due to excess calories; Z68.41 Body mass index [BMI] 40.0-44.9, adult; Z79.84 Long term (current) use of oral hypoglycemic drugs; Z79.899 Other long term (current) drug therapy; Z88.8 Allergy status to other drugs, medicaments and biological substances; Z90.49 Acquired absence of other specified parts of digestive tract
CPT/HCPCS: 46260; 82947; 88304; J1170; J1885; J2250; J2405; J2704; J2795; J3010

== ENCOUNTER → 2023-09-28 11:37 | Outpatient (BNV) | payer OTHER, SELFPAY | PROVIDERS: PCP Internal Medicine; Visit Provider Surgery | DX: K64.8 Other hemorrhoids (principal) | CPT/HCPCS: 46260 ==

== ENCOUNTER 2023-10-15 13:53 | Outpatient (AMB) | payer OTHER, SELFPAY ==
--- NOTE | 2023-10-15 13:58 | A.OFFVIS_ITS ---
Vital Signs 10/15/23 14:04 Height 5 ft 4 in Weight 243 lb BMI 41.7 BP 135/70 Blood Pressure Location Lt brachial Position Sitting Pulse 88 Intake Visit Reasons: S/P hemorrhoidectomy Intake Note: This patient presents for post-op status post hemorrhoidectomy. 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 She is feeling much better. She has much less pain. She still says she can not sit down for long periods of time. [facility]LY [facility] Medical History Osteoarthritis Hyperlipidemia Diabetes Fibromyalgia Morbid obesity Thrombosed hemorrhoids Kidney stone PTSD (post-traumatic stress disorder) Myopia Nonalcoholic steatohepatitis (HAMMONDS) Depression Undifferentiated connective tissue disease Surgical History Hx of hemorrhoidectomy (~09/28/23) Hx of appendectomy History of total left knee replacement Hx of section Hx of tonsillectomy Hx of left inguinal hernia repair History of right knee joint replacement H/O: hysterectomy History of cholecystectomy Social History Alcohol intake: current Alcohol intake frequency: a few times a month Alcohol type: wine and hard liquor Patient Tobacco Use Status: Never used Tobacco e-Cigarette/Vaping Use: Never Used Review of Systems Const Denies chills and Denies fever(s) Card Denies chest pain and Denies dyspnea Resp Denies dyspnea GI Denies hematochezia Physical Exam Vital Signs: Last Vital Signs Pulse 88 10/15/23 14:04 BP 135/70 10/15/23 14:04 BMI result Body Mass Index 41.7 Const Other: Looks well General: comfortable and no acute distress Resp Effort & Inspection: normal respiratory effort GI Other: Rectal exam shows hemorrhoidectomy sites to be healing well although there is residual edema on the left side Assessment & Plan Assessment & Plan (1) Thrombosed hemorrhoids: Code(s): K64.5 - Perianal venous thrombosis Category: Medical Plan: Status post hemorrhoidectomy. Her surgical sites are healing well. She has significant residual edema on the left side of the verge. I advised her to continue doing warm soaks to the area. She is to avoid straining and constipation She is happy with outcome so far. I will see her again in the office for another wound check in about a month. Coding Level of Care Code Global (06338) Diagnoses Thrombosed hemorrhoids K64.5
[2023-10-15 14:04] VITALS: BP 135/70; PULSE 88; BMI 41.7
== END 2023-10-15 14:13 | disposition home or self-care (01) ==
PROVIDERS: PCP Internal Medicine; Visit Provider Surgery
DX: K64.5 Perianal venous thrombosis (principal)
CPT/HCPCS: 99024

== ENCOUNTER → 2023-10-15 13:53 | Outpatient (BNVA) | payer OTHER, SELFPAY | PROVIDERS: PCP Internal Medicine; Visit Provider Surgery | DX: K64.5 Perianal venous thrombosis (principal) | CPT/HCPCS: 99212 ==

== ENCOUNTER 2023-11-06 08:59 | Outpatient (AMB) | payer OTHER, SELFPAY ==
--- NOTE | 2023-11-06 09:02 | MHC.OFFVIS ---
Vital Signs 11/06/23 09:12 Height 5 ft 4 in Weight 236 lb BMI 40.5 BP 133/72 Blood Pressure Location Rt brachial Position Sitting Pulse 86 Intake Visit Reasons: 2 rectal prolapses unable to regulate bowel regime Intake Note: Patient here today as a urgent appointment due to 2 rectal prolapses and unable to regulate bowel movements. Patient c/o: eating vegetables, fruits. Stool softener colace daily. Will take Metamucil if no BM. [place] rectal prolapse with BM. Stool was not hard. Hemorrhoidectomy with Dr. Fallon on 10-08-2023. Gallery Director Required: No Accompanied by: Self / Same As Patient Allergies ending in statin Adverse Reaction (Severe, Uncoded 11/06/23 09:13) Muscle cramps HPI Comments Details: Patient was approximate 1 month status post hemorrhoidectomy. She presents here because of concern that with straining with bowel movements, that she had her rectum drop out through her anal canal. Patient otherwise tolerating a diet. She is taking a variety of stool softeners because of constipation issues. She is postop from Dr. Fallon. He is in the operating room and covering for him. Chart was reviewed and patient evaluated [facility] Medical History Osteoarthritis Hyperlipidemia Diabetes Fibromyalgia Morbid obesity Thrombosed hemorrhoids Kidney stone PTSD (post-traumatic stress disorder) Myopia Nonalcoholic steatohepatitis (HAMMONDS) Depression Undifferentiated connective tissue disease Surgical History Hx of hemorrhoidectomy (~09/28/23) Hx of appendectomy History of total left knee replacement Hx of section Hx of tonsillectomy Hx of left inguinal hernia repair History of right knee joint replacement H/O: hysterectomy History of cholecystectomy Social History Alcohol intake: current Alcohol intake frequency: a few times a month Alcohol type: wine and hard liquor Patient Tobacco Use Status: Never used Tobacco e-Cigarette/Vaping Use: Never Used Physical Exam Vital Signs: Last Vital Signs Pulse 86 11/06/23 09:12 BP 133/72 11/06/23 09:12 BMI result Body Mass Index 40.5 GI Other: Corpulent abdomen benign. Rectal exam demonstrates postoperative changes status post hemorrhoidectomy. With Valsalva on several occasions, patient has an internal hemorrhoid which is dropping/spontaneously protruding and similarly returning into the anal canal. No evidence of any infection or bleeding. Assessment & Plan Assessment & Plan (1) Status post hemorrhoidectomy: Code(s): Z98.890 - Other specified postprocedural states; Z87.19 - Personal history of other diseases of the digestive system Category: Surgical (2) Postop check: Code(s): Z09 - Encounter for follow-up examination after completed treatment for conditions other than malignant neoplasm Category: Surgical Plan Patient was very emotional and concern that she had a rectal prolapse. She was reassured that this was not the issue. She has an internal hemorrhoid which is prolapsing and spontaneously returning with Valsalva. I explained to her that her original hemorrhoid surgery that only a limited number of hemorrhoids can be excised to prevent an anal stricture. At present, patient is to continue local wound care as she has been doing along with stool softeners and she was scheduled to follow up with Dr. Fallon next week. Encourage her to keep that appointment. All questions answered. She will see him as directed above or p.r.n.. Coding Level of Care Code Global (37083) Diagnoses Status post hemorrhoidectomy Z98.890; Z87.19 Postop check Z09
[2023-11-06 09:12] VITALS: BP 133/72; PULSE 86; BMI 40.5
== END 2023-11-06 09:46 | disposition home or self-care (01) ==
PROVIDERS: PCP Internal Medicine; Visit Provider Surgery
DX: Z98.890 Other specified postprocedural states (principal); Z09 Encounter for follow-up examination after completed treatment for conditions other than malignant neoplasm; Z87.19 Personal history of other diseases of the digestive system
CPT/HCPCS: 99024

== ENCOUNTER → 2023-11-06 08:59 | Outpatient (BNVA) | payer OTHER, SELFPAY | PROVIDERS: PCP Internal Medicine; Visit Provider Surgery | DX: Z09 Encounter for follow-up examination after completed treatment for conditions other than malignant neoplasm (principal); Z87.19 Personal history of other diseases of the digestive system; Z98.890 Other specified postprocedural states | CPT/HCPCS: 99212 ==

== ENCOUNTER 2023-11-12 12:57 | Outpatient (AMB) | payer OTHER, SELFPAY ==
--- NOTE | 2023-11-12 12:58 | MHC.OFFVIS ---
Vital Signs 11/12/23 12:59 Height 5 ft 4 in Weight 238 lb BMI 40.8 BP 149/70 H Blood Pressure Location Rt brachial Position Sitting Pulse 70 Intake Visit Reasons: Hemorrhoids Intake Note: This patient presents for question of rectal prolapse. Pt c/o; reports rectal prolapse, red bright blood after every bowel movement, reports she has to rock back and forth to be able to have a bowel movement and x2 she have to push like I am having a baby and I felt something which feels like rectal prolapse, reports she fell into a sink hole and there was no one there to be able to help her so she put her knee back in place, she has an appointment with [facility], reports she was recently diagnosed with Kidney disease. 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 She had seen Dr. Burt last week as she had stated that she had an episode of a full rectal prolapse. She says that she felt that her wrapped him was coming out of her anus. She was constipated at that time and was sitting on the toilet for a long period of time She has not noticed this since that time. [facility] Medical History Osteoarthritis Hyperlipidemia Diabetes Fibromyalgia Morbid obesity Thrombosed hemorrhoids Kidney stone PTSD (post-traumatic stress disorder) Myopia Nonalcoholic steatohepatitis (HAMMONDS) Depression Undifferentiated connective tissue disease Surgical History Hx of hemorrhoidectomy (~09/28/23) Hx of appendectomy History of total left knee replacement Hx of section Hx of tonsillectomy Hx of left inguinal hernia repair History of right knee joint replacement H/O: hysterectomy History of cholecystectomy Social History Alcohol intake: current Alcohol intake frequency: a few times a month Alcohol type: wine and hard liquor Patient Tobacco Use Status: Never used Tobacco e-Cigarette/Vaping Use: Never Used Review of Systems Const Denies chills and Denies fever(s) Card Denies chest pain Physical Exam Vital Signs: BMI result Body Mass Index 40.8 Const General: comfortable and no acute distress Resp Effort & Inspection: normal respiratory effort GI Other: Rectal exam shows the hemorrhoidectomy sites to be healing well, some residual smaller external hemorrhoids seen, rectal prolapse not reproducible at this time Assessment & Plan Assessment & Plan (1) Status post hemorrhoidectomy: Code(s): Z98.890 - Other specified postprocedural states; Z87.19 - Personal history of other diseases of the digestive system Category: Surgical Plan: She actually is doing very well. Her hemorrhoidectomy sites are well healed. She describes some rectal prolapse after an episode of constipation. I had instructed her to avoid straining and constipation and to sit on the toilet only when she is ready to have a bowel movement. I advised her to take Colace b.i.d. as well as Metamucil b.i.d. I can see her in the office in about 2 months for a follow-up. Coding Level of Care Code Global (61321) Diagnoses Status post hemorrhoidectomy Z98.890; Z87.19
[2023-11-12 12:59] VITALS: BP 149/70; PULSE 70; BMI 40.8
== END 2023-11-12 13:23 | disposition home or self-care (01) ==
PROVIDERS: PCP Internal Medicine; Visit Provider Surgery
DX: Z98.890 Other specified postprocedural states (principal); Z87.19 Personal history of other diseases of the digestive system
CPT/HCPCS: 99024

== ENCOUNTER → 2023-11-12 12:57 | Outpatient (BNVA) | payer OTHER, SELFPAY | PROVIDERS: PCP Internal Medicine; Visit Provider Surgery | DX: K64.9 Unspecified hemorrhoids (principal); K59.00 Constipation, unspecified; Z48.815 Encounter for surgical aftercare following surgery on the digestive system; Z87.19 Personal history of other diseases of the digestive system; Z98.890 Other specified postprocedural states | CPT/HCPCS: 99212 ==

== ENCOUNTER 2023-12-20 22:19 | Emergency (ER) | payer OTHER, SELFPAY ==
[2023-12-20 22:20] VITALS: BP 137/80; PULSE 65; O2SAT 99
[2023-12-20 22:24] VITALS: BP 130/75; PULSE 82; RESP 18; TEMP 36.6; O2SAT 95; BMI 39.5
[2023-12-21] MEDS: Lidocaine HCl Viscous 2 % 15 ML SOLUTION MUCOUS MEM (01:17)
--- NOTE | 2023-12-21 01:28 | ED.GENADULT ---
HPI - General Adult General Chief complaint: General Medical Stated complaint: SWOLLEN, INFLAMMED HEMORRHOIDS Time Seen by Provider: 12/21/23 01:08 Source: patient Mode of arrival: ambulatory Limitations: no limitations History of Present Illness ED Provider: Dr. Epperson HPI narrative: Patient is 58yo female with history of complex rectal surgery and renal disease presents with inflammed hemorrhoids after a long BM. Patient very anxious about her hemorrhoids, in addition patient with some flank pain after a fall last week, cannot take motrin because of renal disease cannot take opiates due to constipation. Related Data Home Medications ?Medication ?Instructions ?Recorded ?Confirmed cholecalciferol (vitamin D3) 25 25 mcg PO DAILY 02/26/20 11/06/23 mcg (1,000 unit) capsule escitalopram oxalate 20 mg tablet 20 mg PO DAILY 02/26/20 11/06/23 hydroxychloroquine 200 mg tablet 200 mg PO BID 02/26/20 11/06/23 (Plaquenil) melatonin 3 mg capsule 6 mg PO BEDTIME 02/26/20 11/06/23 metformin 750 mg tablet,extended 1,500 mg PO DAILY 02/26/20 11/06/23 release 24 hr multivitamin 1 tab PO DAILY 02/26/20 11/06/23 trazodone 100 mg tablet 200 mg PO BEDTIME 02/26/20 11/06/23 diclofenac sodium 1 % topical gel 2 g topical QID PRN autoimmune 09/28/23 11/06/23 flare up quetiapine 25 mg tablet (Seroquel) 25 mg PO BEDTIME PRN Insomnia 09/28/23 11/06/23 valacyclovir 1 gram tablet 1,000 mg PO BID PRN herpes break 09/28/23 11/06/23 (Valtrex) out Previous Rx's ?Medication ?Instructions ?Recorded acetaminophen 500 mg tablet 500 mg PO Q6H PRN pain #30 tabs 09/11/23 (Tylenol Extra Strength) ibuprofen 600 mg tablet 600 mg PO Q6H PRN pain #30 tabs 09/11/23 docusate calcium 240 mg capsule 240 mg PO BEDTIME #20 caps 09/12/23 polyethylene glycol 3350 17 17 g PO DAILY #119 grams 09/12/23 gram/dose oral powder (Miralax) magnesium citrate (Citrate of 50 ml PO DAILY PRN constipation 09/13/23 Magnesia oral) #296 mL ibuprofen 600 mg tablet 600 mg PO Q6H PRN pain #30 tabs 09/28/23 cyclobenzaprine 10 mg tablet 10 mg PO TID #10 tabs 12/21/23 phenylephrine 0.25 %-cocoa butter [address] TID #24 ea 12/21/23 88.44 % rectal suppository (Hemorrhoidal (phenyleph-cocoa)) Allergies Allergy/AdvReac Type Severity Reaction Status Date / Time ending in statin AdvReac Severe Muscle Uncoded 12/20/23 22:31 cramps Review of Systems Review of Systems: Yes all other systems are reviewed and are negative Neurologic: Denies Sensory deficit (Neuro) [facility] Past Medical History Medical History Osteoarthritis Hyperlipidemia Diabetes Fibromyalgia Morbid obesity Thrombosed hemorrhoids Kidney stone PTSD (post-traumatic stress disorder) Myopia Nonalcoholic steatohepatitis (HAMMONDS) Depression Undifferentiated connective tissue disease Surgical History Hx of hemorrhoidectomy (~09/28/23) Hx of appendectomy History of total left knee replacement Hx of section Hx of tonsillectomy Hx of left inguinal hernia repair History of right knee joint replacement H/O: hysterectomy History of cholecystectomy Social History Social History Alcohol intake: current Alcohol intake frequency: a few times a month Alcohol type: wine and hard liquor Patient Tobacco Use Status: Never used Tobacco e-Cigarette/Vaping Use: Never Used Do you have a plan to hurt others: No Plan Physical Exam ED Vital Signs: Vital Signs - 24 hr 12/20/23 22:24 Temperature 97.9 F Pulse Rate 82 Respiratory Rate 18 Blood Pressure 130/75 Pulse Oximetry 95 Oxygen Delivery Method Room Air BMI result Body Mass Index 39.5 Const Other: anxious, obese female General: healthy appearing Nutritional Appearance: obese Orientation/consciousness: oriented to person and patient oriented x3 Limitations: no limitations HENMT Head: Yes normal to inspection Ears: external ears normal General nose exam: Normal external nose present Mouth: Normal oral and palatal mucosa present and oropharynx normal Throat: Yes posterior oropharynx normal Eyes General: appearance normal, both eyes and all related structures Neck Neck: Yes normal visual inspection Chest Chest palpation & inspection: normal inspection of the chest Resp Auscultation: clear to auscultation bilaterally Cardio Jugular venous distension: no JVD Rate: regular rate Rhythm: regular rhythm Heart sounds: S1 normal heart sound present and S2 normal heart sound present GI Inspection: Yes normal to inspection Palpation (GI): Soft to palpation, nontender and No hepatosplenomegaly present Auscultation: normal bowel sounds Other: prolapsed hemorrhoids Skin General skin exam: no rashes or lesions noted Neuro General: oriented to person and patient oriented x3 Cranial nerves: Yes CN's II-XII intact bilaterally Motor exam (neuro): 5/5 motor strength present throughout Sensory Exam: No Sensory deficit (Neuro) Extrem General: Yes normal to inspection Psych Appearance: grossly normal Course Reevaluation(s) Reevaluation #1: procedure: manual reduction of hemorrhoids using viscous lidocaine Time: 01:35 Medications Administered Discontinued Medications Generic Name Dose Route Start Last Admin Trade Name Freq PRN Reason Stop Dose Admin Lidocaine HCl 15 ml 12/21/23 01:13 12/21/23 01:17 Lidocaine Hcl Viscous 2 % 15 Ml Solution MUCOUS MEM 12/21/23 01:14 15 ml ONCE ONE Administration Medical Decision Making Differential Diagnosis Differential Diagnoses: The differential diagnosis associated with the presentation includes (hemorrhoids, rectal prolapse, rectal fissure) Prescription Management I considered prescription management with: Pain Medication (no motrin due to renal disease, no narcotics due to hemorrhoids and constipation) Discharge Plan Discharge Clinical Impression: Hemorrhoids, Hemorrhoid prolapse Patient Disposition: Home, Self-Care Instructions: Hemorrhoids (ED), Sitz Bath (DC) Prescriptions: New Hemorrhoidal (phenyleph-cocoa) 0.25-88.44 % suppository [address] TID Qty: 24 0RF cyclobenzaprine 10 mg tablet 10 mg PO TID Qty: 10 0RF No Action ibuprofen 600 mg tablet 600 mg PO Q6H PRN (Reason: pain) Qty: 30 0RF acetaminophen [Tylenol Extra Strength] 500 mg tablet 500 mg PO Q6H PRN (Reason: pain) Qty: 30 0RF quetiapine [Seroquel] 25 mg Tablet 25 mg PO BEDTIME PRN (Reason: Insomnia) Rx Instructions: may take up to 75mg valacyclovir [Valtrex] 1 gram Tablet 1,000 mg PO BID PRN (Reason: herpes break out) diclofenac sodium [Voltaren] 1 % Gel 2 g TOPICAL QID PRN (Reason: autoimmune flare up) Rx Instructions: apply to single elbow, wrist or hand; for hand includes palm/fingers/back of hand ibuprofen 600 mg tablet 600 mg PO Q6H PRN (Reason: pain) Qty: 30 0RF polyethylene glycol 3350 [Miralax] 17 gram/dose powder 17 g PO DAILY Qty: 119 0RF docusate calcium 240 mg capsule 240 mg PO BEDTIME Qty: 20 0RF hydroxychloroquine [Plaquenil] 200 mg tablet 200 mg PO BID metformin 750 mg tablet extended release 24 hr 1,500 mg PO DAILY trazodone 100 mg tablet 200 mg PO BEDTIME escitalopram oxalate 20 mg tablet 20 mg PO DAILY cholecalciferol (vitamin D3) 25 mcg (1,000 unit) capsule 25 mcg PO DAILY multivitamin Tablet 1 tab PO DAILY melatonin 3 mg capsule 6 mg PO BEDTIME magnesium citrate [Citrate of Magnesia] Solution 50 ml PO DAILY PRN (Reason: constipation) Qty: 296 0RF Referrals: Daniel Fallon MD [Physician] - 5 days Print Language: Lithuanian
[2023-12-21 03:07] VITALS: BP 130/75; PULSE 82; RESP 18; TEMP 36.6; O2SAT 95
== END 2023-12-21 03:08 | disposition home or self-care (01) ==
PROVIDERS: Emergency Provider Emergency Medicine; PCP Internal Medicine
DX: K64.8 Other hemorrhoids (principal); Z79.899 Other long term (current) drug therapy
CPT/HCPCS: 99282; 99283

== ENCOUNTER 2023-12-24 15:13 | Outpatient (AMB) | payer OTHER, SELFPAY ==
--- NOTE | 2023-12-24 15:14 | A.OFFVIS_ITS ---
Vital Signs 12/24/23 15:21 Height 5 ft 4 in Weight 233 lb BMI 40.0 BP 136/76 Blood Pressure Location Rt brachial Position Sitting Pulse 82 Intake Visit Reasons: rectal pain, hemorrhoids Intake Note: This patient presents for [facility] emergency department follow-up for rectal pain, hemorrhoids. Pt c/o; reports she has a new diagnosis of Stage 3 Kidney disease, reports rectal pain, hemorrhoids. 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 Accompanied by: Self / Same As Patient Allergies ending in statin Adverse Reaction (Severe, Uncoded 12/24/23 15:22) Muscle cramps Medication List - Last Reconciled 12/24/23 by Daniel Fallon MD acetaminophen (Tylenol Extra Strength) 500 mg PO Q6H PRN cholecalciferol (vitamin D3) 25 mcg PO DAILY cyclobenzaprine 10 mg PO TID diclofenac sodium 1% 2 grams topical QID PRN docusate calcium 240 mg PO BEDTIME escitalopram oxalate 20 mg PO DAILY hydroxychloroquine (Plaquenil) 200 mg PO BID ibuprofen 600 mg PO Q6H PRN ibuprofen 600 mg PO Q6H PRN lidocaine HCl 2% (Lidocaine Viscous) 1 appl mucous membrane BID PRN magnesium citrate (Citrate of Magnesia oral) 50 mL PO DAILY PRN melatonin 6 mg PO BEDTIME metformin ER 1,500 mg PO DAILY multivitamin 1 tab PO DAILY phenylephrine-cocoa butter 0.25-88.44 % (Hemorrhoidal (phenyleph-cocoa)) 1 supp [place] TID polyethylene glycol 3350 (Miralax) 17 grams PO DAILY quetiapine (Seroquel) 25 mg PO BEDTIME PRN trazodone 200 mg PO BEDTIME valacyclovir (Valtrex) 1,000 mg PO BID PRN HPI HPI rectal pain, hemorrhoids: Details: She is hre for a ffup for her hemorrhoids. She says she had been doing very well since I last saw her in the office. She did not have hemorrhoid issues but 4 days ago, she had an episode of multiple loose BMs. She says that because of this, she noticed prolapse of her hemorrhoids with significant discomfort and pain. She therefore went to the emergency room. She says that the hemorrhoids were reduced in the ER. She was started on some lidocaine cream which she has been using She says that she has had no further prolapse but states that she has had some discomfort when she is sitting down for long periods of time. She admits to occasional passage of small amounts of bright red blood with bowel movements. [facility] Medical History Osteoarthritis Hyperlipidemia Diabetes Fibromyalgia Morbid obesity Thrombosed hemorrhoids Kidney stone PTSD (post-traumatic stress disorder) Myopia Nonalcoholic steatohepatitis (HAMMONDS) Depression Undifferentiated connective tissue disease Surgical History Hx of hemorrhoidectomy (~09/28/23) Hx of appendectomy History of total left knee replacement Hx of section Hx of tonsillectomy Hx of left inguinal hernia repair History of right knee joint replacement H/O: hysterectomy History of cholecystectomy Social History Alcohol intake: current Alcohol intake frequency: a few times a month Alcohol type: wine and hard liquor Patient Tobacco Use Status: Never used Tobacco e-Cigarette/Vaping Use: Never Used Review of Systems Const Denies chills and Denies fever(s) Card Denies chest pain at rest GI Denies abdominal pain and Reports hematochezia Physical Exam Vital Signs: Last Vital Signs Pulse 82 12/24/23 15:21 BP 136/76 12/24/23 15:21 BMI result Body Mass Index 40.0 Const General: comfortable and no acute distress Resp Effort & Inspection: normal respiratory effort GI Other: Rectal exam shows external hemorrhoids, moderate size on both the left and right side, no prolapse of internal component at this time, no tenderness Assessment & Plan Assessment & Plan (1) Hemorrhoid prolapse: Code(s): K64.8 - Other hemorrhoids Category: Medical Plan: She went to the ER 4 days ago because of prolapse of internal hemorrhoids. She says that this was reduced in the ER. She feels much better. However, she says that she can not sit for long periods of time because of discomfort Examination shows external hemorrhoids as well. I told her that since she just had surgery 3 months ago, I would like to hold off on this for now. I will see him again in the office in about a month. I explained to her that control of her GI issues with occasional frequent bowel movements and constipation will be gee to controlling her hemorrhoid symptoms as well. She understands this. She will continue to be on stool softeners and Metamucil She is to see her kidney doctor as well because of her chronic kidney disease. Coding Level of Care Code Est Pt Level 3 (59033) Diagnoses Hemorrhoid prolapse K64.8
[2023-12-24 15:21] VITALS: BP 136/76; PULSE 82; BMI 40.0
== END 2023-12-24 15:39 | disposition home or self-care (01) ==
LOC: HO.HGS 15:13
PROVIDERS: PCP Internal Medicine; Visit Provider Surgery
DX: K64.8 Other hemorrhoids (principal)
CPT/HCPCS: 99024

== ENCOUNTER → 2023-12-24 15:13 | Outpatient (BNVA) | payer OTHER, SELFPAY | PROVIDERS: PCP Internal Medicine; Visit Provider Surgery | DX: K64.8 Other hemorrhoids (principal) | CPT/HCPCS: 99212 ==

== ENCOUNTER 2024-01-14 13:09 | Outpatient (AMB) | payer OTHER, SELFPAY ==
[2024-01-14 13:26] VITALS: BP 136/72; PULSE 68; BMI 39.6
--- NOTE | 2024-01-14 13:26 | MHC.OFFVIS ---
Vital Signs 01/14/24 13:26 Height 5 ft 4 in Weight 231 lb BMI 39.6 BP 136/72 Blood Pressure Location Rt brachial Position Sitting Pulse 68 Intake Visit Reasons: 2 mth follow up Hemorrhoids Intake Note: This patient presents for two month follow- up for Hemorrhoids. Pt c/o; reports no changes since last visit. 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 Accompanied by: Self / Same As Patient Allergies ending in statin Adverse Reaction (Severe, Uncoded 01/14/24 13:34) Muscle cramps Medication List - Last Reconciled 01/14/24 by Daniel Fallon MD acetaminophen (Tylenol Extra Strength) 500 mg PO Q6H PRN cholecalciferol (vitamin D3) 25 mcg PO DAILY cyclobenzaprine 10 mg PO TID diclofenac sodium 1% 2 grams topical QID PRN docusate calcium 240 mg PO BEDTIME escitalopram oxalate 20 mg PO DAILY hydroxychloroquine (Plaquenil) 200 mg PO BID ibuprofen 600 mg PO Q6H PRN ibuprofen 600 mg PO Q6H PRN lidocaine HCl 2% (Lidocaine Viscous) 1 appl mucous membrane BID PRN magnesium citrate (Citrate of Magnesia oral) 50 mL PO DAILY PRN melatonin 6 mg PO BEDTIME metformin ER 1,500 mg PO DAILY multivitamin 1 tab PO DAILY phenylephrine-cocoa butter 0.25-88.44 % (Hemorrhoidal (phenyleph-cocoa)) 1 supp [place] TID polyethylene glycol 3350 (Miralax) 17 grams PO DAILY quetiapine (Seroquel) 25 mg PO BEDTIME PRN trazodone 200 mg PO BEDTIME valacyclovir (Valtrex) 1,000 mg PO BID PRN HPI HPI 2 mth follow up Hemorrhoids: Details: She is here for follow-up for her hemorrhoid groups. She says that really has had no new issues except that she has had constipation. She says that she had to do a digital exam on herself to remove hard stools 2 weeks ago She says she is supposed to see a operator command support systems but her appointment is not until April, and she says that she wants helped to see them earlier than that. She feels well overall. [facility] Medical History (Updated 01/14/24 @ 13:48 by Daniel Fallon MD) Constipation Osteoarthritis Hyperlipidemia Diabetes Fibromyalgia Morbid obesity Thrombosed hemorrhoids Kidney stone PTSD (post-traumatic stress disorder) Myopia Nonalcoholic steatohepatitis (HAMMONDS) Depression Undifferentiated connective tissue disease Surgical History Hx of hemorrhoidectomy (~09/28/23) Hx of appendectomy History of total left knee replacement Hx of section Hx of tonsillectomy Hx of left inguinal hernia repair History of right knee joint replacement H/O: hysterectomy History of cholecystectomy Social History Alcohol intake: current Alcohol intake frequency: a few times a month Alcohol type: wine and hard liquor Patient Tobacco Use Status: Never used Tobacco e-Cigarette/Vaping Use: Never Used Review of Systems Const Denies chills and Denies fever(s) Card Denies chest pain, Denies dyspnea and Denies dyspnea on exertion Resp Denies cough, Denies dyspnea and Denies dyspnea on exertion GI Denies hematochezia, Denies change in bowel habits and Reports constipation Denies hematuria Musc Denies back pain and Denies limited range of motion Neuro Denies focal weakness and Denies convulsions Psych Denies depression and Denies mood swings Physical Exam Vital Signs: Last Vital Signs Pulse 68 01/14/24 13:26 BP 136/72 01/14/24 13:26 BMI result Body Mass Index 39.6 Const General: comfortable and no acute distress Resp Effort & Inspection: normal respiratory effort Cardio Rate: regular rate GI Other: Rectal exam shows non bulky but moderate-sized external hemorrhoids on both the left and right Palpation (GI): Soft to palpation Assessment & Plan Assessment & Plan (1) Constipation: Code(s): K59.00 - Constipation, unspecified Category: Medical Plan: She wants to be referred to a operator command support systems for her constipation. She understands that this is vital to control of her hemorrhoid issues I will assist her in seeing a operator command support systems here in a system. I will see her again in the office once she is seen by her operator command support systems down the line. Coding Level of Care Code Est Pt Level 3 (52819) Diagnoses Constipation K59.00
== END 2024-01-14 13:57 | disposition home or self-care (01) ==
PROVIDERS: PCP Internal Medicine; Visit Provider Surgery
DX: K59.00 Constipation, unspecified (principal)
CPT/HCPCS: 99213

== ENCOUNTER → 2024-01-14 13:09 | Outpatient (BNVA) | payer OTHER, SELFPAY | PROVIDERS: PCP Internal Medicine; Visit Provider Surgery | DX: K59.00 Constipation, unspecified (principal); K64.4 Residual hemorrhoidal skin tags | CPT/HCPCS: 99212 ==

== ENCOUNTER 2024-03-10 08:59 | Outpatient (AMB) | payer OTHER, SELFPAY ==
[2024-03-10 09:04] VITALS: BP 116/68; PULSE 82; O2SAT 99; BMI 39.0
--- NOTE | 2024-03-10 09:04 | MHC.OFFVIS ---
Vital Signs 03/10/24 09:04 Height 5 ft 4 in Weight 227 lb 8.273 oz BMI 39.0 BP 116/68 Blood Pressure Location Rt brachial Position Sitting Pulse 82 Pulse Source Pulse Oximeter Pulse Oximetry (%) 99 Oxygen Delivery Method Room Air Intake Visit Reasons: Dr. Fallon urgent req. Severe hemorrhoids Intake Note: NEW PATIENT Reason; [place] consult. Recent hx of Severe hemorrhoids. PCP records requested 03/05/2024. Prior hx of colo/egd? Pt believes about 10-12 years ago but cannot recall. Possibly via [facility]. Concerns/Questions? Severe constipation. Internal/External Hemorrhoids. Impaction. Pt has been doing better with new diet regimen. Pt is not interested in colo at this time but is looking to discuss IBS-C. Allergies [id number] Reductase Inhibitor Adverse Reaction (Intermediate, Verified 03/10/24 09:06) Muscle cramps HPI HPI Dr. Fallon urgent req. Severe hemorrhoids: Details: 59-year-old female with a past medical history of constipation, obesity, connective tissue disease, thrombosed hemorrhoid, status post hemorrhoidectomy is here today for initial consultation. Patient was sent by PCP and by Dr. Fallon. Patient's saw her colorectal surgeon and wanted to see GI sooner. Patient does have appointment with GI in another practice but that is not until end of April. Patient reports constipation to the point that sometimes she has to digitally remove the stool. Patient reports that she is drinking enough fluids. Taking stool softeners and has order for Mag citrate as needed. Patient reports occasional blood after bowel movements. History of external and internal hemorrhoids. Hemorrhoidectomy in September of 2023. Last colonoscopy over 10 years ago was done at [facility]. Patient denies any family history of CRC. [facility] Medical History Constipation Osteoarthritis Hyperlipidemia Diabetes Fibromyalgia Morbid obesity Thrombosed hemorrhoids Kidney stone PTSD (post-traumatic stress disorder) Myopia Nonalcoholic steatohepatitis (HAMMONDS) Depression Undifferentiated connective tissue disease Surgical History Hx of hemorrhoidectomy (~09/28/23) Hx of appendectomy History of total left knee replacement Hx of section Hx of tonsillectomy Hx of left inguinal hernia repair History of right knee joint replacement H/O: hysterectomy History of cholecystectomy Social History Alcohol intake: current Alcohol intake frequency: a few times a month Alcohol type: wine and hard liquor Patient Tobacco Use Status: Never used Tobacco e-Cigarette/Vaping Use: Never Used Physical Exam Vital Signs: Last Vital Signs Pulse 82 03/10/24 09:04 BP 116/68 03/10/24 09:04 Pulse Ox 99 03/10/24 09:04 Oxygen Delivery Method Room Air 03/10/24 09:04 BMI result Body Mass Index 39.0 Assessment & Plan Assessment & Plan (1) Constipation: Code(s): K59.00 - Constipation, unspecified Category: Medical Qualifiers: Constipation type: chronic idiopathic constipation Qualified Code(s): K59.04 - Chronic idiopathic constipation (2) Status post hemorrhoidectomy: Code(s): Z98.890 - Other specified postprocedural states; Z87.19 - Personal history of other diseases of the digestive system Category: Surgical Plan Continue with bowel regimen. Stool softeners and MiraLax daily. Patient will increase fiber in her diet as well. Increase fluid intake and activity to promote better bowel motility. Patient will call us if she will have any symptoms. Will be scheduled for colonoscopy. Patient will follow-up in 6-8 months, sooner on as needed basis. She is agreeable to this plan and verbalizes understanding of instructions. She was given the opportunity to ask questions and all questions answered. Thank you for allowing me to participate in her care Orders: Orders Liver Panel 03/10/24 R74.01 - Elevation of levels of liver transaminase levels Medications: New hydrocortisone 2.5% (Proctosol HC) 1 appl [place] BID-QID PRN 30 grams 2RF hemorrhoids K64.9 - Unspecified hemorrhoids Coding Level of Care Code New Pt Level 3 (93060) Diagnoses Chronic idiopathic constipation K59.04 Constipation type: chronic idiopathic constipation Status post hemorrhoidectomy Z98.890; Z87.19 Time Spent (min) 40 Comment 30 minutes spent with patient and additional 10 minutes spent reviewing her records
--- OUTSIDE RECORDS SUMMARY | 2024-03-10 09:06 | XMS_ITS | Encounter Summary ---
Author Name [facility] [place] [facility] [place] [facility] [place] Address [address] [place] [address] Care Team Providers Care Traffic Operations Engineer Name Role Phone GARRETT GOOD Primary Care Provider Unavailabl e Insurance Providers: All historical and current Section Date Range: From patient's date of to the date document was created. This section includes the names of all active insurance providers for the patient. Insurance Provider Type of Coverage Plan Name Start of Policy Coverage End of Policy Coverage Group Number Member ID Insurance Provider's Telephone Number Policy Boykin's Name Patient's Relationship to Policy Boykin [facility] CE ORGANIZ HMO Oct 06, 2018 O [id number] MEREDITH KU NN PATIENT ANTHEM BCBS CT FEDERAL PREFERRED PROVIDER ORGANIZAT ION (PPO) BASIC FAMIL Y Jan 31, 2015 [id number] MEREDITH KU NN PATIENT ANTHEM BCBS OF CT (BLUECARD) HIGH DEDUCTIBL E HEALTH PLAN [facility] HDHP Oct 06, 2018 [id number] MEREDITH KU NN PATIENT [place]BS [place] HIGH DEDUCTIBL E HEALTH PLAN [facility] [place] HDHP Oct 06, 2018 [id number] [phone] MEREDITH KU NN PATIENT [place]IGH DEDUCTIBL E HEALTH PLAN CLINI [facility] SUPP HDHP Oct 06, 2018 [id number] ATTILATAMEKALY NN PATIENT [place] [facility] CE ORGANIZ CLIN[facility] AND SUPPO RT Oct 06, [id number] [phone] DEHNTAMEKALY NN PATIENT BCBS OF [facility] PREFERRED PROVIDER ORGANIZAT ION (PPO) BASIC FAMIL Y Jan 31, 2015 [id number] DELUISITOLY NN PATIENT [place] FEPRX PLAN PRESCRIPT ION BCBS FEP Jan 31, 2015 [id number] ELMIRALY NN PATIENT [place]-F EP BCBS PRESCRIPT ION BCBS FEP PLAN Jan 31, 2015 [id number] ELMIRALY NN PATIENT [employer] PRESCRIPT ION HMO Oct 06, 2018 [id number] DENEREYDATMAEKALY NN PATIENT [employer] PRESCRIPT ION [facility] RT Sep 19, 2018 [id number] DELUISITOLY NN PATIENT [employer] ([id number]) PRESCRIPT ION HDHP Oct 06, 2018 [id number] [id number] DEHNTAMEKALY NN PATIENT [employer] ([id number]) PRESCRIPT ION L4TA Oct 06, 2018 L4TA [id number] DEHNEHLY NN PATIENT [employer] ([id number]) PRESCRIPT ION L4TA HDHP Oct 06, 2018 L4TA [id number] DELUISITOLY NN PATIENT [employer] RX PRESCRIPT ION CLINI [facility] RT Oct 06, 2018 L4TA [id number] DELUISITO,LY NN PATIENT [id number] [facility] CE ORGANIZ CLINI [facility] AND SUPPO RT Oct 06, [id number] ELMIRALY NN PATIENT [id number] [facility] CE ORGANIZ CLINI [facility] AND SUPPO RT Oct 06, [id number] [phone] DEHNEH,LY NN PATIENT G210 BCBSM ([facility]) [facility]GANIZ CL[facility] AND SUPPO RT Oct 06, [id number] DEHNEH,LY NN PATIENT G210 BCBSM ([facility]) [facility] CE [facility]GAN[facility] CL[facility] AND SUPPO RT Oct 06, [id number] DEHNEH,LY NN PATIENT MEDICARE (WNR) MEDICARE () PART A Nov 19, 2006 PART A [id number] DEHNEH,LY NN PATIENT MEDICARE (WNR) MEDICARE () PART A Nov 19, 2006 PART A [id number] DEHNEH,LY NN PATIENT MEDICARE (WNR) MEDICARE () PART A Nov 19, 2006 PART A [id number] DEHNEH,LY NN PATIENT MEDICARE (WNR) MEDICARE ) PART B Nov 19, 2006 PART B [id number] DEHNEH,LY NN PATIENT MEDICARE (WNR) MEDICARE () PART A Nov 19, 2006 PART A [id number] [phone] DEHNEH,LY NN PATIENT MEDICARE (WNR) MEDICARE () PART A Nov 19, 2006 PART A [id number] DEHNEH,LY NN PATIENT MEDICARE (WNR) MEDICARE () PART A Nov 19, 2006 PART A [id number] DEHNEH,LY NN PATIENT MEDICARE (WNR) MEDICARE () PART A Nov 19, 2006 PART A [id number] DEHNEH,LY NN PATIENT MEDICARE (WNR) MEDICARE () PART B Nov 19, 2006 PART B [id number] DEHNEH,LY NN PATIENT Selected Encounter This section includes the information on record at [place] for the Encounter. Date/Time Encounter Type Encounter Description Reason Provider Source Aug 20, 2023 09:35 AM Outpatient Encounter RHEUMATOLOGY/ARTHRIT IS LEIGH LOPEZ Nav Encounter Template Text not used by [facility] Plan of Treatment: Future Appointments (+ 6 months) and Future Tests (+/- 45 days) The Plan of Treatment section includes future care activities for the patient from [facility] [place] [facility] This section includes future appointments and future orders which are active, pending or scheduled. Future Appointments This section includes appointments that were scheduled to occur 6 months from the date of the Encounter, up to a maximum of 20 appointments. The data comes from all [place] treatment [facility]. Appointment Date/Time Appointment Type Appointme nt Facility Name Aug 31, 2023 10:00 AM AMBULATORY [facility]ICINE [facility] [place] [facility] Sep 04, 2023 01:30 PM AMBULATORY - PSYCHIATRY [facility] Sep 11, 2023 03:00 PM [facility] Sep 13, 2023 08:00 AM AMBULATORY - [place]ICINE [place] [facility] [place] [facility] Oct 29, 2023 04:00 PM AMBULATORY - PSYCHIATRY [facility] Nov 07, 2023 02:15 PM AMBULATORY - MEDICINE [facility] Nav [facility] Nov 08, 2023 11:00 AM AMBULATORY - MEDICINE [facility] [place] [facility] Nov 09, 2023 01:30 PM [facility]ULATORY - MEDICINE [facility] Nov 15, 2023 11:00 AM AMBULATORY - REHAB MEDICIN [facility] Nov 16, 2023 10:30 AM AMBULATORY - NONE [facility] [place] [facility] Nov 16, 2023 11:00 AM AMBULATORY - NONE [facility] [place] [facility] Dec 04, 2023 12:00 PM AMBULATORY - MEDICINE [place] [facility] [place] [facility] Dec 27, 2023 09:30 AM AMBULATORY - MEDICINE [place] [facility] [place] [facility] Feb 05, 2024 09:30 AM [facility] Social History: Smoking Status (Most current) and Tobacco Use (All prior to encounter date) This section includes the most current, and the historical, smoking and tobacco- related health factors from the [place] facility where the Encounter took place. Current Smoking Status This section includes the most current smoking, or tobacco-related health factor, from the [place] facility where the Encounter took place. Date/Time Current Smoking Status Jonathan nicholas May 10, 2022 01:50 PM LIFETIME NON-TOBACCO USER [facility] Tobacco Use History This section includes a history of the smoking, or tobacco-related health factors, that were collected on or before the date of the Encounter. The data comes from the [place] facility where the Encounter took place. Date/Time Smoking Status/Tobacco Use Comment F acayaz Jul 22, 2021 11:53 PM LIFETIME NON-TOBACCO USER [facility] Sep 25, 2017 11:30 AM LIFETIME NON-TOBACCO USER [facility] Aug 17, 2017 10:28 AM LIFETIME NON-TOBACCO USER [facility] Encounter Notes: All associated encounter notes This section contains the clinical notes associated to the Encounter. Date/Time Encounter Note(s) Provider Source Aug 20, 2023 09:35 AM RHEUMATOLOGY Jybe MESSAGING: LOCAL TITLE: RHEUMATOLOGY SECURE MESSAGING STANDARD TITLE: RHEUMATOLOGY SECURE MESSAGING DATE OF NOTE: AUG 20, 2023@09:35 ENTRY DATE: AUG 20, 2023@10:35:31 AUTHOR: LEIGH LOPEZ EXP COSIGNER: URGENCY: STATUS: COMPLETED ------Original Message -- Sent: 08/18/2023 06:36 PM ET From: INDY KU To: RHEUMATOLOGY_WRJ@ Subject: Appointment:Appointment Shari! I am writing to inquire as to when my next in- person visit will be with the rheumotologist. If I don't have one scheduled, I would like to schedule an in person visit sometime in Oct. or Nov. please. I look forward to hearing from you. Thank you ------Original Message -- Sent: 08/20/2023 10:35 AM ET From: LEIGH LOPEZ To: INDY KU Subject: Appointment:Rusty Ku, Thank you for reaching out, you are overdue for follow up with us. I will send your message to our schedulers and ask them to help get you in when it is convenient for you. They will likely call you, we have on file. If you wanted to see Dr Cason before she leaves we can get you in by the end of this month. If that is too early for you, we can get you in with another fellow. Respectfully, Leigh Lopez RN /es/ LEIGH LOPEZ REGISTERED NURSE Signed: 08/20/2023 10:35 Receipt Acknowledged By: 08/20/2023 13:16 /farhan/ LEIGH ROSS [facility]
--- OUTSIDE RECORDS SUMMARY | 2024-03-10 09:07 | XMS_ITS | Encounter Summary ---
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 conjunctival injection. OP clear. CVS: RRR. Normal S1, S2. Pulm: CTAB ABD: Soft, NT, ND, 2+BS. Ext: No edema Neuro: Alert, oriented. Normal gait. Joints: Neck - FROM, nontender Shoulders - FROM, tenderness in b/l shoulder Elbows - FROM, nontender, no synovitis Wrists - FROM, tenderness in b/l wrists Hands - No MCP compression tenderness, no swelling, full claw, full fist, tenbderness in all hand joints Hips - FROM, nontender Knees - FROM, nontender, no effusions Ankles - FROM, nontender, no swelling Feet - no MTP swelling or compression tenderness, no entheseal tenderness LABS: AbsI.0 (07/20/22 15:29) BASO %: 0.3 (07/20/22 15:29) BASO#: 0.0 (07/20/22 15:) EOS %: 1.1 (07/20/22:) EOS#: 0.1 (07/20/22:) HCT: 36.9 (07/20/22 15:29) HGB: 11.9 (07/20/22 15:) IG%: 0.2 (07/20/22:) LYMPH %: 22.5 (07/20/22:) Lymph#: 1.4 (07/20/22:) MCH: 26.2 (07/20/22:) MCHC: 32.2 (07/20/22:) MCV: 81.1 (07/20/22 15:29) MONO %: 7.2 (07/20/22 15:29) MONO#: 0.5 (07/20/22 15:29) MPV: 10.1 (07/20/22:) N.RBC: 0.0 (07/20/22:) NEUT %: 68.7 (07/20/22:29) NEUT#: 4.4 (07/20/22:) NRBC#: 0.00 (07/20/22:) PLT: 217 (07/20/22 15:29) RBC: 4.55 (07/20/22 15:29) RDW: 14.0 (07/20/22 15:29) WBC: 6.4 (07/20/22 15:29) GLU,BUN,CREAT,LYTES - NONE FOUND No data available for: ALBUMIN BILIRUBIN, TOTAL ALKALINE PHOSPHATASE ALT(SGPT) AST(SGOT) WESTERGREN ESR - NONE FOUND Diagnostics X ray rt knee: 08/2021:Right knee osteoarthropathy with progressive joint space loss at the medial compartment now with nywi-od-lmmr articulation. MRI right wrist 2021: NO EVIDENCE FOR LIGAMENTOUS, TENDINOUS OR OSSEOUS INJURY OF THE RIGHT WRIST. ASSESSMENT AND PLAN Ms Lillian Trent is a 56 year old female PMH UCTD, fibromyalgia, left labrum tear, DM2, obesity, HTN, HLD, MDD,and rt knee OA (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 # UCTD ? # Polyarticular joint pain, arthralgia #Fibromyalgia - MEG 1:320 titer, C3, C4, Ds DNA- WNL, UA negative, CRP-16.4, ESR WNL, CK-WNL - Quant TB, Hep C and Hep B Ag and Core Ab negative, Hep B Ab +, HIV negative - Started on HCQ- GI S/E, Switched to Plaquenil 200 mg PO BID in Jan 2019. - 01/10: taking plaqunil intermittently -03/2023: stopped Plaquenil on her own as she was told that it can cause vision changes -Endorses of having pain in b/l shoulder joint/elbow/wrist/and all hand joints and doesnot find any difference between not taking and while she was taking Plaquenil -Her symptoms and examination findings are more consistent with fibromyalgia Plan -We will follow up labs- CBC, CMP, ESR, CRP, TSH -Pt was advised to visit occupational therapy for right knee brace -Apply Diclofenac gel as needed for joint pain -Follow up in July 2024 Pt was seen and discussed with Dr. Jaqui Hernadez Rheumatology Fellow Pager: [phone] Suicide Screen: C-SSRS Screening [place]-Suicide Severity Rating Scale (C-SSRS Screener) 1. Over the past month, have you wished you were or wished you could go to sleep and not wake up? No 2. Over the past month, have you had any actual thoughts of killing yourself? No 3. Over the past month, have you been thinking about how you might do this? Response not required due to responses to other questions. 4. Over the past month, have you had these thoughts and had some intention of acting on them? Response not required due to responses to other questions. 5. Over the past month, have you started to work out or worked out the details of how to kill yourself? Response not required due to responses to other questions. 6. If yes, at any time in the past month did you intend to carry out this plan? Response not required due to responses to other questions. 7. In your lifetime, have you ever done anything, started to do anything, or prepared to do anything to end your life (for example, collected pills, obtained a gun, gave away valuables, went to the roof but didn't jump)? No 8. If YES, was this within the past 3 months? Response not required due to responses to other questions. /farhan/ ANKIT HERNADEZ Rheumatology fellow Signed: 11/07/2023 17:50 /sindi Azevedo hvac instructor [employer]zel [employer]ister Cosigned: 11/09/2023 13:45 11/09/2023 ADDENDUM STATUS: COMPLETED I am supervising Dr. Hernadez for this particular patient encounter. I have seen and examined the patient, I have reviewed the chart, and have discussed our findings with the Fellow and the patient. I am in agreement with the history and exam as outlined in this note. The assessment and plan were formulated together with myself and the fellow. UCTD appears to be stable/inactive at this time. We will continue to monitor off HCQ for now. /farhan/ JAQUI Azevedo hvac instructor [employer] Twister Signed: 11/09/2023 14:03 ANKIT HERNADEZ [facility]
--- OUTSIDE RECORDS SUMMARY | 2024-03-10 09:07 | XMS_ITS | Encounter Summary ---
Author Name [facility] [place] [facility] [place] Address [address] [place] [address] Care Team Providers Care Director Of Sports Performance Name Role Phone GARRETT GOOD Primary Care [...] Boykin's Name Patient's Relationship to Policy Boykin [facility] CE ORGANIZ HMO Oct 06, 2018 O [id number] [phone] MEREDITH KU NN PATIENT ANTHEM BCBS CT FEDERAL PREFERRED PROVIDER ORGANIZAT ION (PPO) BASIC FAMIL Y Jan 31, 2015 [id number] [phone] MEREDITH KU NN PATIENT ANTHEM BCBS OF CT (BLUECARD) HIGH DEDUCTIBL E HEALTH PLAN CLINI [facility] SUP HDHP Oct 06, 2018 [id number] MEREDITH KU NN PATIENT BCBS [place] HIGH DEDUCTIBL E HEALTH PLAN CLINI [facility] [place] HDHP Oct 06, 2018 [id number] [phone] MEREDITH KU NN PATIENT BCBS OF [place] HIGH DEDUCTIBL E HEALTH PLAN CLINI [facility]STINE SUPP HDHP Oct 06, [id number] [phone] DELUISITOLY NN PATIENT BCBS OF [facility] CE ORGANIZ CL[facility] SUPPO RT Oct 06, [id number] [phone] DELUISITOLY NN PATIENT BCBS OF [facility] PREFERRED PROVIDER ORGANIZAT ION (PPO) BASIC FAMIL Y Jan 31, 2015 [id number] [phone] DEHNTAMEKALY NN PATIENT [place] FEPRX PLAN PRESCRIPT ION BCBS FEP Jan 31, 2015 [id number] MEREDITH KU NN PATIENT [place]-F EP BCBS PRESCRIPT ION BCBS FEP PLAN Jan 31, 2015 [id number] ELMIRALY NN PATIENT EXPRESS SCRIPTS PRESCRIPT ION HMO Oct 06, 2018 L4TA [id number] ELMIRALY NN PATIENT EXPRESS SCRIPTS PRESCRIPT ION CLINI [facility] SUPPO RT Sep 19, 2018 L4TA [id number] DELUISITOLY NN PATIENT EXPRESS SCRIPTS ([id number]) PRESCRIPT ION HDHP Oct 06, 2018 L4TA [id number] DEHNEHLY NN PATIENT EXPRESS SCRIPTS ([id number]) PRESCRIPT ION L4TA Oct 06, 2018 L4TA [id number] DEHNEHLY NN PATIENT EXPRESS SCRIPTS ([id number]) PRESCRIPT ION L4TA HDHP Oct 06, 2018 L4TA [id number] DELUISITOLY NN PATIENT EXPRESS SCRIPTS RX PRESCRIPT ION CLINI [facility] SUPPO RT Oct 06, 2018 L4TA [id number] [phone] DEHNEH,LY NN PATIENT [id number] [facility] CE ORGANIZ CLINI [facility] AND SUPPO RT Oct 06, [id number] DEHNTAMEKALY NN PATIENT [id number] [facility] CE ORGANIZ CLINI CHRISTINE AND SUPPO RT Oct 06, [id number] [phone] DEHNEH,LY NN PATIENT [id number] BCBS ([facility]) [facility] CE ORGANIZ CLINI [facility] AND SUPPO RT Oct 06, [id number] [phone] DEHNEH,LY NN PATIENT G[facility] SUPPO RT Oct 06, [id number] DEHNEH,LY NN PATIENT MEDICARE (WNR) MEDICARE ) PART A Nov 19, 2006 PART A [id number] DEHNEH,LY NN PATIENT MEDICARE (WNR) MEDICARE ) PART A Nov 19, 2006 PART A [id number] DEHNEH,LY NN PATIENT MEDICARE (WN) MEDICARE ) PART B Nov 19, 2006 PART B [id number] DEHNEH,LY NN PATIENT MEDICARE (WN) MEDICARE ) PART A Nov 19, 2006 PART A [id number] DEHNEH,LY NN PATIENT MEDICARE (WNR) MEDICARE () PART A Nov 19, 2006 PART A [id number] DEHNEH,LY NN PATIENT MEDICARE (WNR) MEDICARE ) PART A Nov 19, 2006 PART A [id number] DEHNEH,LY NN PATIENT MEDICARE (WNR) MEDICARE ) PART A Nov 19, 2006 PART A [id number] DEHNEH,LY NN PATIENT MEDICARE (WNR) MEDICARE ) PART A Nov 19, 2006 PART A [id number] DEHNEH,LY NN PATIENT MEDICARE (WNR) MEDICARE ) PART B Nov 19, 2006 PART B [id number] DEHNEH,LY NN PATIENT Selected Encounter This section includes the information on record at [place] for the Encounter. Date/Time Encounter Type Encounter Description Reason Provider Source Mar 15, 2023 11:00 AM THERAPEUTIC EXERCISES PHYSICAL THERAPY ICD-10-CM M25.572 Pain in left ankle and joints of left foot JENSEN GOMEZ IHE Encounter Template Text not used by [place] Assessments - Encounter Diagnoses This section includes the primary and secondary diagnoses documented for the Encounter. Date/Time Primary/Secondary Diagnosis Diagnosis Name Provider Source Mar 15, 2023 03:51 PM PRIMARY Pain in left ankle and joints of left foot JENSEN GOMEZ [place] [facility] [place] [facility] Plan of Treatment: Future Appointments (+ 6 months) and Future Tests (+/- 45 days) The Plan of Treatment section includes future care activities for the patient from all [place] [facility] This section includes future appointments and future orders which are active, pending or scheduled. Future Appointments This section includes appointments that were scheduled to occur 6 months from the date of the Encounter, up to a maximum of 20 appointments. The data comes from all [place] treatment facilities. Appointment Date/Time Appointment Type Appointme nt Facility Name Mar 29, 2023 02:30 PM AMBULATORY - [facility] [place] [facility] Apr 05, 2023 01:00 PM AMBULATORY - [facility] MEDICIN E [facility] [place] [facility] Apr 12, 2023 01:00 PM AMBULATORY - REHAB MEDICIN E [facility] [place] [facility] Apr 20, 2023 02:30 PM AMBULATORY - PSYCHIATRY [facility] May 11, 2023 03:45 PM AMBULATORY - NONE [facility] [place] [facility] May 11, 2023 04:00 PM AMBULATORY - NONE [facility] [place] [facility] May 18, 2023 01:00 PM AMBULATORY - MEDICINE [facility] [place] [facility] May 24, 2023 09:30 AM AMBULATORY - REHAB MEDICIN E [facility] [place] [facility] Jun 06, 2023 02:00 PM AMBULATORY - MEDICINE [facility] June 22, 2023 01:30 PM AMBULATORY - MEDICINE [facility] [place] [facility] July 05, 2023 03:00 PM AMBULATORY - PSYCHIATRY [facility] July 06, 2023 01:30 PM AMBULATORY - MEDICINE [facility] [place] [facility] Aug 31, 2023 10:00 AM AMBULATORY - MEDICINE [facility] [place] [facility] Sep 04, 2023 01:30 PM AMBULATORY - PS[facility]CHIATRY [facility] Sep 11, 2023 03:00 PM [facility]ULAT[facility] MEDICINE [facility] Sep 13, 2023 08:00 AM AMBULATORY - MED[facility] Social History: Smoking Status (Most current) [...] Date/Time Current Smoking Status Comment Facil ity Aug 11, 2022 02:50 PM [facility] Tobacco Use History This section includes a history of the smoking, or tobacco-related health factors, that were collected on or before the date of the Encounter. The data comes from the [place] facility where the Encounter took place. Date/Time Smoking Status/Tobacco Use Comment F acility Dec 05, 2019 01:53 PM VA-TOBACCO NEVER USED [place] [facility] [place] [facility] May 26, 2016 02:32 PM LIFETIME NON-TOBACCO USER [place] [facility] Encounter Notes: All associated encounter notes This section contains the clinical notes associated to the Encounter. Date/Time Encounter Note(s) Provider Source Mar 15, 2023 11:07 AM PHYSICAL THERAPY CONSULT: [facility] TITLE: PHYSICAL THERAPY CONSULT STANDARD TITLE: PHYSICAL THERAPY CONSULT DATE OF NOTE: MAR 15, 2023@11:07 ENTRY DATE: MAR 15, 2023@11:07:38 AUTHOR: JENSEN GOMEZ COSIGNER: URGENCY: STATUS: COMPLETED Initial Evaluation date: 03/15/23 Progress Note Date: n/a Treatment #: eval Treatment time: 50min Diagnosis: pain L ankle/foot Provider: dr cardoza/ referring provider dr goff PT Treatment Precautions: DM but sugars well controlled, HTN, connective tissue disorder Patient identified by full name and date of S: 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 Has had PF on the R foot was bad had to get knee scooter to use for a period of time to reduce inflammation in there (this was several years ago). She is seeing podiatry. Soon after the foot pain began she left [employer] and went to [employer] [facility] it was smaller with hopes to have that help and now as of Sunday retired. She recognized that while she was working there she loved it but she had a significant lack of self-care for herself and had Gained about 20 lbs. in a year since being there. She also reports B TKR limited chronic ROM on the R knee, has nustep at home she has been using since being retired and feels good Pain Relives with: ice for cold but has stopped, has taken ibuprofen for a day or two doesn't take now, rest, diclofenac gel Pain increases with: Grocery shopping/walking will throb by the time she gets home, has not walked on inclines dog walks are short 1/4mile used to do 2 miles but pain limits her Exercise: currently Using foot roller/massage and slant board standing on that couple times/day but is not sure if she should be doing that or frequency/time/duration she should be doing that for, she is performing PF stretch ,HS/SLR stretch, guidance and ?to add? She is looking forward to losing weight, hiking is her exercise, enjoys swimming but has nowhere to go right now. Enjoys dancing L foot pain direct to heel, no paresthesia's not constant pain Cam Boot was given to her from podiatry she saw her on video she is unsure how long she should be using it for but states she has been removing it periodically and told them that and they were okay with it She was dancing at a Concert a week ago now with lateral lower leg pain noted on the L as well PMhx DM sugar well controlled, HTN, B TKR pertinent O: Observation: B pes planus noted, mild calcaneal eversion noted, bunion noted R mod L only mild Palpation: TTP direct to L heel, mild to plantar arch tenderness but most palpation tenderness direct to heel TTP peroneal brevis and longus muscle belly no tenderness to tendons No visible swelling noted to either areas Sensation: Intact to LT PROM: All hip and knee motions WFL's EXCEPT R knee flex to 90deg d/t chronic complications following TKR, ext lacking about 5deg L ankle as follows: DF wfl's no pain PF wfl's no pain inv 30 no pain ever 20 no pain Big toe ext R 60, L 40 Subtalar eversion 25 B inversion 0 Strength: hip and knee grossly 5/5 except R hip/knee grossly 4+/5 L ankle DF 5/5 PF 5/5 painful Inv 4+/5 Eversion 5/5 Peroneal 4+/5 mild pain lateral ankle anterior tib 5/5 mild pain posterior tib 5/5 pain Gastroc 5/5 painful Gait: Pt ambulates with mild antalgic gait on L, proper footwear Special tests: (- ) Anterior drawer (- ) Talar tilt (- ) Functional leg length (- ) Sanchez test (- ) Homans sign (+) Jett Test Joint mobility: talocrural joint: wfl's subtalar joint: wfl's Treatment to this date: Education in nustep she is doing 10min no resistance encouraged she increase slowly to 20-30min at a time and then encouraged adding resistance [employer]: Access Code: [email or web address] URL: [email or web address] Date: 03/15/2023 Prepared by: [facility] Exercises - Gastroc Stretch on Wall - 1 x daily - 7 x weekly - 3 sets - 5 reps - 30 sec hold - Standing Gastroc Stretch on Step - 1 x daily - 7 x weekly - 3 sets - 5 reps - 30 sec hold - Soleus Stretch on Wall - 1 x daily - 7 x weekly - 3 sets - 5 reps - 30sec hold - Standing Plantar Fascia Mobilization with Small Ball - 1 x daily - 7 x weekly - 3 sets - 5-10 reps - Calf Mobilization with Foam Roll - 1 x daily - 7 x weekly - 3 sets - 5-10 reps A: Pt is appropriate for PT based on the following impairments: - plantar pain symptoms consistent with possible fasciitis, pt already beginning some self-care activities such as massage/stretching. Pt's ROM WNL's, pt with pain, impaired ankle strength, impaired functional mobility ? connective tissue disorder she has dx? whether or not that is contributing to her symptoms, recent fairly quick weight gain of which may be contributing to her symptoms but pt very motivated to lose weight Goals (to be assessed in 4-6 weeks) 1. Pt to be I with HEP 2. Pt to report plantar pain no more than 2/10 at worst within the last week to allow her to return to hiking in the spring 3. Pt to report ambulating 2 miles with plantar pain no more than 2/10 at worst 4. Pt to be able to demonstrate ankle strength 5/5 all motions P: Pt to be seen 1x/week for 4-6 weeks. Included in the plan of care will be CFM plantar fascia, strengthening/stretching of plantar surface of foot/calf etc., strengthening of toe intrinsic, use of cardio machine for warm up, KT as appropriate, pt education in HEP and education in maintenance of diagnosis, static and dynamic balance activities as appropriate /farhan/ JENSEN GOMEZ PT PHYSICAL THERAPIST Signed: 03/16/2023 15:02 JENSEN GOMEZ [facility]
--- OUTSIDE RECORDS SUMMARY | 2024-03-10 09:08 | XMS_ITS | Encounter Summary ---
Author Name [place] Address [address] [place] [address] Care Team Providers Care Lubricating Machine Tender Name Role Phone GARRETT GOOD Primary Care [...] Boykin's Name Patient's Relationship to Policy Boykin [facility] CE ORGANIZ HMO Oct 06, 2018 O [id number] MEREDITH KU NN PATIENT ANTHEM BCBS CT FEDERAL PREFERRED PROVIDER ORGANIZAT ION (PPO) BASIC FAMIL Y Jan 31, 2015 [id number] [phone] MEREDITH KU NN PATIENT ANTHEM BCBS OF CT (BLUECARD) HIGH DEDUCTIBL E HEALTH PLAN CLINI [facility] & SUP HDHP Oct 06, 2018 [id number] MEREDITH KU NN PATIENT BCBS [place] HIGH DEDUCTIBL E HEALTH PLAN CLINI [facility] [place] HDHP Oct 06, 2018 [id number] MEREDITH KU NN PATIENT [place]BS [place] HIGH DEDUCTIBL E HEALTH PLAN CLINI CHRISTINE SUPP HDHP Oct 06, [id number] DELUISITOLY NN PATIENT BCBS OF [facility] CE ORGANIZ CLINI CHRISTINE AND SUPPO RT Oct 06, [id number] [phone] DELUISITOLY NN PATIENT BCBS OF [facility] PREFERRED PROVIDER ORGANIZAT ION (PPO) BASIC FAMIL Y Jan 31, 2015 [id number] DEHNTAMEKALY NN PATIENT [place] FEPRX PLAN PRESCRIPT ION BCBS FEP Jan 31, 2015 [id number] MEREDITH KU NN PATIENT [place]-F EP BCBS PRESCRIPT ION BCBS FEP PLAN Jan 31, 2015 [id number] ELMIRALY NN PATIENT EXPRESS SCRIPTS PRESCRIPT ION HMO Oct 06, 2018 L4TA [id number] ELMIRALY NN PATIENT EXPRESS SCRIPTS PRESCRIPT ION CLINI [facility] AND SUPPO RT Sep 19, 2018 L4TA [id number] DELUISITOLY NN PATIENT EXPRESS SCRIPTS ([id number]) PRESCRIPT ION HDHP Oct 06, 2018 L4TA [id number] DEHNEHLY NN PATIENT EXPRESS SCRIPTS ([id number]) PRESCRIPT ION L4TA Oct 06, 2018 L4TA [id number] DEHNEHLY NN PATIENT EXPRESS SCRIPTS ([id number]) PRESCRIPT ION L4TA HDHP Oct 06, 2018 L4TA [id number] DELUISITOLY NN PATIENT EXPRESS SCRIPTS RX PRESCRIPT ION CLINI [facility] AND SUPPO RT Oct 06, 2018 L4TA [id number] DEHNEH,LY NN PATIENT [id number] [facility] CE ORGANIZ CLINI [facility] AND SUPPO RT Oct 06, [id number] DEHNTAMEKALY NN PATIENT [id number] [facility] CE ORGANIZ CLINI CHRISTINE AND SUPPO RT Oct 06, [id number] DEHNEH,LY NN PATIENT G210 BCBS ([facility]) [facility] CE ORGANIZ CLINI CHRISTINE AND SUPPO RT Oct 06, [id number] [id number] DEHNEH,LY NN PATIENT G210 BCBS ([facility]OFESSIO [facility]) [facility] CE ORGANIZ CLINI CHRISTINE AND SUPPO RT Oct 06, [id number] DEHNEH,LY NN PATIENT MEDICARE (WN) MEDICARE ) PART A Nov 19, 2006 PART A [id number] DEHNEH,LY NN PATIENT MEDICARE (WN) MEDICARE ) PART A Nov 19, 2006 PART A [id number] DEHNEH,LY NN PATIENT MEDICARE (WN) MEDICARE ) PART A Nov 19, 2006 PART A [id number] DEHNEH,LY NN PATIENT MEDICARE ([facility]) MEDICARE ) PART B Nov 19, 2006 PART B [id number] DEHNEH,LY NN PATIENT MEDICARE (WNR) MEDICARE ) PART A Nov 19, 2006 PART A [id number] DEHNEH,LY NN PATIENT MEDICARE (WN) MEDICARE ) PART A Nov 19, 2006 PART A [id number] DEHNEH,LY NN PATIENT MEDICARE (WN) MEDICARE ) PART A Nov 19, 2006 PART A [id number] DEHNEH,LY NN PATIENT MEDICARE (WN) MEDICARE ) PART A Nov 19, 2006 PART A [id number] DEHNEH,LY NN PATIENT MEDICARE (WNR) MEDICARE ) PART B Nov 19, 2006 PART B [id number] DEHNEH,LY NN PATIENT Selected Encounter This section includes the information on record at [place] for the Encounter. Date/Time Encounter Type Encounter Description Reason Provider Source Mar 29, 2023 02:30 PM THERAPEUTIC EXERCISES PHYSICAL THERAPY ICD-10-CM M72.2 Plantar fascial fibromatosis MATT GOMEZ IHE Encounter Template Text not used by [place] Assessments - Encounter Diagnoses This section includes the primary and secondary diagnoses documented for the Encounter. Date/Time Primary/Secondary Diagnosis Diagnosis Name Provider Source Mar 29, 2023 03:50 PM PRIMARY Plantar fascial fibromatosis MATT GOMEZ [place] [facility] [place] [facility] Plan of Treatment: Future Appointments (+ 6 months) and Future Tests (+/- 45 days) The Plan of Treatment section includes future care activities for the patient from all [place] treatmentfacilities. This section includes future appointments and future orders which are active, pending or scheduled. Future Appointments This section includes appointments that were scheduled to occur 6 months from the date of the Encounter, up to a maximum of 20 appointments. The data comes from all [place] treatment facilities. Appointment Date/Time Appointment Type Appointme nt Facility Name Apr 05, 2023 01:00 PM AMBULATORY - [facility]IC[facility] [place] [facility] Apr 12, 2023 01:00 PM AMBULATORY - REHAB MEDICIN E [facility] [place] [facility] Apr 20, 2023 02:30 PM AMBULATORY - PSYCHIATRY [facility] May 11, 2023 03:45 PM AMBULATORY - NONE [facility] [place] [facility] May 11, 2023 04:00 PM AMBULATORY - NONE [facility] [place] [facility] May 18, 2023 01:00 PM AMBULATORY - MEDICINE [facility] [place] [facility] May 24, 2023 09:30 AM AMBULATORY - REHAB MEDICIN E [facility] [place] [facility] Jun 06, 2023 02:00 PM AMBULATORY - MEDICINE [facility] June 22, 2023 01:30 PM AMBULATORY - MEDICINE [facility] [place] [facility] July 05, 2023 03:00 PM AMBULATORY - PSYCHIATRY [facility] July 06, 2023 01:30 PM AMBULATORY - MEDICINE [place] [facility] [place] [facility] Aug 31, 2023 10:00 AM AMBULATORY - MEDICINE [place] [facility] [place] [facility] Sep 04, 2023 01:30 PM AMBULATORY - PSYCHIATRY [facility] Sep 11, 2023 03:00 PM AMBULATORY - MEDICINE [facility] Sep 13, 2023 08:00 AM AMBULATORY - MEDICINE [facility] Social History: Smoking Status (Most current) and Tobacco Use (All prior to encounter date) This section includes the most current, and the historical, smoking and tobacco- related health factors from the [place] facility where the Encounter took place. Current Smoking Status This section includes the most current smoking, or tobacco-related health factor, from the [place] facility where the Encounter took place. Date/Time Current Smoking Status Comment Rory finleymodesta Aug 11, 2022 02:50 PM VA-TOBACCO NEVER USED [facility] Tobacco Use History This section includes a history of the smoking, or tobacco-related health factors, that were collected on or before the date of the Encounter. The data comes from the [place] facility where the Encounter took place. Date/Time Smoking Status/Tobacco Use Comment Barb gonzalez Dec 05, 2019 01:53 PM VA-TOBACCO NEVER USED [facility] May 26, 2016 02:32 PM LIFETIME NON-TOBACCO USER [facility] Encounter Notes: All associated encounter notes This section contains the clinical notes associated to the Encounter. Date/Time Encounter Note(s) Provider Source Mar 29, 2023 03:50 PM PHYSICAL THERAPY N OTE: LOCAL TITLE: PHYSICAL THERAPY STANDARD TITLE: PHYSICAL THERAPY NOTE DATE OF NOTE: MAR 29, 2023@15:50 ENTRY DATE: MAR 29, 2023@15:50:06 AUTHOR: JENSEN GOMEZ COSIGNER: URGENCY: STATUS: COMPLETED Initial Evaluation date: 03/15/23 Progress Note Date: n/a Treatment #: 1 Treatment time: 30min Diagnosis: pain L ankle/foot Provider: dr cardoza/ referring provider dr goff PT Treatment Precautions: DM but sugars well controlled, HTN, connective tissue disorder Patient identified by full name and date of SUBJECTIVE: It's going well I got boots to wear I'm thinking I may wear them at night while I'm sitting down before I got o bed, I'm not sure I will wear them to bed OBJECTIVE: Pt reporting L heel pain 6-7/10 direct pain to heel, went for a hike several days ago but feels it was too far probably about 2 miles but was in pain by the time she was done. Wondering if she may need new hiking shoes. She is using her nustep at home daily but not doing self-massage THERAPEUTIC EXERCISE: MINUTES: 18 - nustep x10min L1-3 - PF stretch on board x5 - plantar fascia stretch on step x4 MANUAL THERAPY: MINUTES: 10 - STM/CFM direct to heel/Achilles insertion and along medial fascia SELF CARE/EDUCATION: MINUTES: -- -Pt's hiking shoes appeared fairly worn out on bottom and stretched along top she stated she has had them for 2-3 years and needs to keep tightening them, encouraged considering new shoes Wix: Access Code: [email or web address] URL: [email or web address] Date: 03/15/2023 Prepared by: [facility] Exercises - Gastroc Stretch on Wall - [...] weekly - 3 sets - 5-10 reps Patient education was provided for all aspects of care during this clinical encounter. ASSESSMENT: Tolerated treatment well, felt good upon exiting the clinic, pain reduced 4-5/10 continues to need education on modifications of activities to reduce irritation to fascia PLAN: continue per plan of care, begin foot intrinsic strengthening when tolerable /es/ JENSEN GOMEZ PT PHYSICAL THERAPIST Signed: 03/30/2023 15:34 JENSEN GOMEZ [place] [facility]
--- OUTSIDE RECORDS SUMMARY | 2024-03-10 09:08 | XMS_ITS | Encounter Summary ---
Author Name [place] Address [address] [place] [address] Care Team Providers Care Specialist Field Engineer Name Role Phone GARRETT GOOD Primary [...] Boykin's Name Patient's Relationship to Policy Boykin [facility] CE ORGANIZ HMO Oct 06, 2018 HMO [id number] MEREDITH KU NN PATIENT ANTHEM BCBS CT FEDERAL PREFERRED PROVIDER ORGANIZAT ION (PPO) BASIC FAMIL Y Jan 31, 2015 112 [id number] MEREDITH KU NN PATIENT ANTHEM BCBS OF CT (BLUECARD) HIGH DEDUCTIBL E HEALTH PLAN CLINI [facility] & SUP HDHP Oct 06, 2018 [id number] MEREDITH KU NN PATIENT BCBS [place] HIGH DEDUCTIBL E HEALTH PLAN CLINI [facility] [place] HDHP Oct 06, 2018 [id number] MEREDITH KU NN PATIENT [place] HIGH DEDUCTIBL E HEALTH PLAN CLINI CHRISTINE SUPP HDHP Oct 06, [id number] DELUISITOLY NN PATIENT BCBS OF [facility] CE ORGANIZ CLINI CHRISTINE AND SUPPO RT Oct 06, [id number] DELUISITOLY NN PATIENT BCBS OF [facility] PREFERRED PROVIDER ORGANIZAT ION (PPO) BASIC FAMIL Y Jan 31, 2015 [id number] [phone] DEHNTAMEKALY NN PATIENT [place] FEPRX PLAN PRESCRIPT ION BCBS FEP Jan 31, 2015 [id number] MEREDITH KU NN PATIENT [place]-F EP BCBS PRESCRIPT ION BCBS FEP PLAN Jan 31, 2015 [id number] ELMIRALY NN PATIENT EXPRESS SCRIPTS PRESCRIPT ION HMO Oct 06, 2018 L4TA [id number] ELMIRALY NN PATIENT EXPRESS SCRIPTS PRESCRIPT ION CLINI [facility] SUPPO RT Sep 19, 2018 L4TA [id number] DELUISITOLY NN PATIENT EXPRESS SCRIPTS ([id number]) PRESCRIPT ION HDHP Oct 06, 2018 L4TA [id number] DEHNEHLY NN PATIENT EXPRESS SCRIPTS ([id number]) PRESCRIPT ION L4TA Oct 06, 2018 L4TA [id number] DEHNEHLY NN PATIENT EXPRESS SCRIPTS ([id number]) PRESCRIPT ION L4TA HDHP Oct 06, 2018 L4TA [id number] DELUISITOLY NN PATIENT EXPRESS SCRIPTS RX PRESCRIPT ION CLINI [facility] AND SUPPO RT Oct 06, 2018 L4TA [id number] DEHNEH,LY NN PATIENT [id number] [facility] CE ORGANIZ CLINI CHRISTINE AND SUPPO RT Oct 06, [id number] DEHNTAMEKALY NN PATIENT [id number] [facility] CE ORGANIZ CLINI CHRISTINE AND SUPPO RT Oct 06, [id number] DEHNEH,LY NN PATIENT G210 BCBSM ([facility] ORGANIZ CLINI CHRISTINE AND SUPPO RT Oct 06, [id number] DEHNEH,LY NN PATIENT G210 BCBS (PROFESSIO [facility]) [facility] CE ORGANIZ CLINI CHRISTINE AND SUPPO RT Oct 06, [id number] DEHNEH,LY NN PATIENT MEDICARE (WNR) MEDICARE () PART A Nov 19, 2006 PART A [id number] DEHNEH,LY NN PATIENT MEDICARE (WNR) MEDICARE () PART A Nov 19, 2006 PART A [id number] DEHNEH,LY NN PATIENT MEDICARE (WNR) MEDICARE () PART A Nov 19, 2006 PART A [id number] DEHNEH,LY NN PATIENT MEDICARE (WN) MEDICARE ) PART B Nov 19, 2006 PART B [id number] DEHNEH,LY NN PATIENT MEDICARE (WNR) MEDICARE () PART A Nov 19, 2006 PART A [id number] [phone] DEHNEH,LY NN PATIENT MEDICARE (WNR) MEDICARE () PART A Nov 19, 2006 PART A [id number] DEHNEH,LY NN PATIENT MEDICARE (WNR) MEDICARE () PART A Nov 19, 2006 PART A [id number] DEHNEH,LY NN PATIENT MEDICARE (WNR) MEDICARE () PART A Nov 19, 2006 PART A [id number] DEHNEH,LY NN PATIENT MEDICARE (WNR) MEDICARE () PART B Nov 19, 2006 PART B [id number] [phone] DEHNEH,LY NN PATIENT Selected Encounter This section includes the information on record at [place] for the Encounter. Date/Time Encounter Type Encounter Description Reason Pro vider Source Mar 20, 2023 09:17 AM Outpatient Encounter CLINICAL PHARMACY IHE Encounter Template Text not used by [place] Plan of Treatment: Future Appointments (+ 6 months) and Future Tests (+/- 45 days) The Plan of Treatment section includes future care activities [place] [facility] [place] [facility]. This section includes future appointments and future orders which are active, pending or scheduled. Future Appointments This section includes appointments that were scheduled to occur 6 months from the date of the Encounter, up to a maximum of 20 appointments. The data comes from all [place] treatment facilities. Appointment Date/Time Appointment Type Appointme nt Facility Name Mar 29, 2023 02:30 PM AMBULATORY - [facility]IC[facility] E [facility] [place] [facility] Apr 05, 2023 01:00 PM AMBULATORY - REHAB MEDICIN [facility] [place] [facility] Apr 12, 2023 01:00 PM AMBULATORY - REHAB MEDICIN E [facility] [place] [facility] Apr 20, 2023 02:30 PM AMBULATORY - PS[facility]CHIATRY [facility] May 11, 2023 03:45 PM AMBULATORY - NONE [facility] [place] [facility] May 11, 2023 04:00 PM AMBULATORY - NONE [facility] [place] [facility] May 18, 2023 01:00 PM AMBULATORY - MEDICINE [facility] [place] [facility] May 24, 2023 09:30 AM AMBULATORY - REHAB MEDICIN E [facility] [place] [facility] Jun 06, 2023 02:00 PM AMBULATORY - MEDICINE [facility] June 22, 2023 01:30 PM AMBULATORY - MEDICINE [place] [facility] [place] [facility] July 05, 2023 03:00 PM AMBULATORY - PS[facility]CHIATRY [facility] July 06, 2023 01:30 PM AMBULATORY - MEDICINE [place] [facility] [place] [facility] Aug 31, 2023 10:00 AM AMBULATORY - MEDICINE [place] [facility] [place] [facility] Sep 04, 2023 01:30 PM AMBULATORY - PS[facility]IATRY [facility] Sep 11, 2023 03:00 PM AMBULATORY - MEDICINE [facility] Sep 13, 2023 08:00 AM AMBULATORY - MEDICINE [place] [facility] [place] [facility] Social History: Smoking Status (Most current) and Tobacco Use (All prior to encounter date) This section includes the most current, and the historical, smoking and tobacco- related health factors from the [place] facility where the Encounter took place. Current Smoking Status This section includes the most current smoking, or tobacco-related health factor, from the [place] facility where the Encounter took place. Date/Time Current Smoking Status Comment Facil ity Aug 11, 2022 02:50 PM VA-TOBACCO NEVER USED [facility] Tobacco Use History This section includes a history of the smoking, or tobacco-related health factors, that were collected on or before the date of the Encounter. The data comes from the [place] facility where the Encounter took place. Date/Time Smoking Status/Tobacco Use Comment F acility Dec 05, 2019 01:53 PM VA-TOBACCO NEVER USED [facility] May 26, 2016 02:32 PM LIFETIME NON-TOBACCO USER [facility] Encounter Notes: All associated encounter notes This section contains the clinical notes associated to the Encounter. Date/Time Encounter Note(s) Provider Source Mar 20, 2023 09:17 AM MEDICATION MGT NOT E: LOCAL TITLE: OUTPATIENT MEDICATION REQUEST STANDARD TITLE: MEDICATION MGT NOTE DATE OF NOTE: MAR 20, 2023@09:17 ENTRY DATE: MAR 20, 2023@09:17:56 AUTHOR: DANIEL BARTON EXP COSIGNER: URGENCY: STATUS: COMPLETED Medication Request Date of Request: Feb Is this a New Medication? No Received refill request slip in the mail for the followin VALACYCLOVIR HCL 1GM TAB E 3 03-01-22 02-26-23 QTY: 30 SIG: TAKE ONE TABLET BY MOUTH ONCE DAILY FOR INFECTION CAUSED BY A VIRUS The following actions were performed: PACT Team RN and Provider added as additional Signers to this request *Please let patient know that this request may take up to 72 hours to process.* /farhan/ DANIEL BARTON [facility] BRE[facility]ER [facility] Signed: 03/20/2023 09:18 Receipt Acknowledged By: 03/21/2023 15:10 /farhan/ Yi Dumont M.D. STAFF PHYSICIAN 03/21/2023 16:07 /farhan/ PEDRO GOMEZ RN REGISTERED NURSE DANIEL BARTONFIELD
--- OUTSIDE RECORDS SUMMARY | 2024-03-10 09:08 | XMS_ITS | Encounter Summary ---
Author Name [place] Address [address] [place] [address] Care Team Providers Care Solutions Specialist Name Role Phone GARRETT GOOD Primary Care [...] Boykin's Name Patient's Relationship to Policy Boykin [facility] H[facility] Oct 06, 2018 HMO [id number] [phone] MEREDITH KU NN PATIENT ANTHEM BCBS CT FEDERAL PREFERRED PROVIDER ORGANIZAT ION (PPO) BASIC FAMIL Y Jan 31, 2015 [id number] [phone] MEREDITH KU NN PATIENT ANTHEM BCBS OF CT (BLUECARD) HIGH DEDUCTIBL E HEALTH PLAN CLINI [facility] & SUP HDHP Oct 06, 2018 [id number] [phone] MEREDITH [place] NN PATIENT BCBS [place] HIGH DEDUCTIBL E HEALTH PLAN CLINI [facility] AND [place]LA[place] HDHP Oct 06, 2018 [id number] [phone] MEREDITH KU NN PATIENT BCBS OF [place] HIGH DEDUCTIBL E HEALTH PLAN CLINI [facility]STINE SUPP HDHP Oct 06, [id number] DELUISITOLY NN PATIENT BCBS OF [place]/[facility] CE ORGANIZ CLIN[facility] AND SUPPO RT Oct 06, [id number] [phone] DEMEREDITH JORGE NN PATIENT BCBS OF [facility] PREFERRED PROVIDER ORGANIZAT ION (PPO) BASIC FAMIL Y Jan 31, 2015 [id number] DEHNTAMEKALY NN PATIENT [place] FEPRX PLAN PRESCRIPT ION BCBS FEP Jan 31, 2015 [id number] ELMIRALY NN PATIENT [place]-F EP BCBS PRESCRIPT ION BCBS FEP PLAN Jan 31, 2015 [id number] ELMIRALY NN PATIENT EXPRESS SCRIPTS PRESCRIPT ION HMO Oct 06, 2018 L4TA [id number] DELUISITOLY NN PATIENT EXPRESS SCRIPTS PRESCRIPT ION CLINI [facility] AND SUPPO RT Sep 19, 2018 L4TA [id number] DELUISITOLY NN PATIENT EXPRESS SCRIPTS ([id number]) PRESCRIPT ION HDHP Oct 06, 2018 L4TA [id number] DEHNEHLY NN PATIENT EXPRESS SCRIPTS ([id number]) PRESCRIPT ION L4TA Oct 06, 2018 L4TA [id number] DEHNEHLY NN PATIENT EXPRESS SCRIPTS ([id number]) PRESCRIPT ION L4TA HDHP Oct 06, 2018 L4TA [id number] DELUISITOLY NN PATIENT EXPRESS SCRIPTS RX PRESCRIPT ION CLINI [facility] AND SUPPO RT Oct 06, 2018 L4TA [id number] DEHNEH,LY NN PATIENT [id number] [facility] CE ORGANIZ CLINI [facility]STINE AND SUPPO RT Oct 06, [id number] DEHNTAMEKALY NN PATIENT [id number] [facility] CE ORGANIZ CLINI CHRISTINE AND SUPPO RT Oct 06, [id number] DEHNEH,LY NN PATIENT G210 BCBS ([facility] SUPPO RT Oct 06, 2018 [id number] DEHNEH,LY NN PATIENT G210 BCBS ([facility]) [facility] CE ORGANIZ CLINI CHRISTINE AND SUPPO RT Oct 06, [id number] DEHNEH,LY NN PATIENT MEDICARE (WNR) MEDICARE ) PART A Nov 19, 2006 PART A [id number] DEHNEH,LY NN PATIENT MEDICARE (WNR) MEDICARE ) PART A Nov 19, 2006 PART A [id number] DEHNEH,LY NN PATIENT MEDICARE (WNR) MEDICARE ) PART A Nov 19, 2006 PART A [id number] DEHNEH,LY NN PATIENT MEDICARE (WN) MEDICARE ) PART B Nov 19, 2006 PART B [id number] DEHNEH,LY NN PATIENT MEDICARE (WNR) MEDICARE () PART A Nov 19, 2006 PART A [id number] DEHNEH,LY NN PATIENT MEDICARE (WNR) MEDICARE () PART A Nov 19, 2006 PART A [id number] [phone] DEHNEH,LY NN PATIENT MEDICARE (WN) MEDICARE ) PART A Nov 19, 2006 PART A [id number] DEHNEH,LY NN PATIENT MEDICARE (WNR) MEDICARE ) PART A Nov 19, 2006 PART A [id number] DEHNEH,LY NN PATIENT MEDICARE (WNR) MEDICARE ) PART B Nov 19, 2006 PART B [id number] DEHNEH,LY NN PATIENT Selected Encounter This section includes the information on record at [place] for the Encounter. Date/Time Encounter Type Encounter Description Reason Provider Source Mar 28, 2023 03:38 PM Outpatient Encounter PRIMARY CARE/MEDICINE BOUBACAR GOMEZ Encounter Template Text not used by [place] Plan of Treatment: Future Appointments (+ 6 months) and Future Tests (+/- 45 days) The Plan of Treatment section includes future care activities for the patient [facility] [place] [facility] This section includes future appointments and future orders which are active, pending or scheduled. Future Appointments This section includes appointments that were scheduled to occur 6 months from the date of the Encounter, up to a maximum of 20 appointments. The data comes from all [place] treatment facilities. Appointment Date/Time Appointment Type Appointme nt Facility Name Mar 29, 2023 02:30 PM AMBUL[facility] [place] Apr 05, 2023 01:00 PM AMBULATORY [facility] Apr 12, 2023 01:00 PM AMBULATORY - [facility]AB MEDICIN [facility] Apr 20, 2023 02:30 PM AMBULATORY - PS[facility]CHIATRY [facility] May 11, 2023 03:45 PM AMBULATORY - NONE [facility] May 11, 2023 04:00 PM AMBULATORY - NONE [facility] May 18, 2023 01:00 PM AMBULATORY - MEDICINE [facility] [place] May 24, 2023 09:30 AM AMBULATORY - REHAB MEDICIN [facility] Jun 06, 2023 02:00 PM AMBULATORY - MEDICINE [facility] June 22, 2023 01:30 PM AMBULATORY - MEDICINE [place] [facility] [place] July 05, 2023 03:00 PM AMBULATORY - PS[facility]CHIATRY [facility] July 06, 2023 01:30 PM AMBULATORY - MEDICINE [facility] Aug 31, 2023 10:00 AM AMBULATORY - MEDICINE [facility] [place] Sep 04, 2023 01:30 PM AMBULATORY - PSYCHIATRY [facility] Sep 11, 2023 03:00 PM AMBULATORY - MEDICINE [facility] Sep 13, 2023 08:00 AM AMBULATORY - MEDICINE [place] [facility] Social History: Smoking Status (Most current) and Tobacco Use (All prior to encounter date) This section includes the most current, and the historical, smoking and tobacco- related health factors from the [place] facility where the Encounter took place. Current Smoking Status This section includes the most current smoking, or tobacco-related health factor, from the [place] facility where the Encounter took place. Date/Time Current Smoking Status Comment Rory ity Aug 11, 2022 02:50 PM VA-TOBACCO NEVER [facility]ED [facility] Tobacco Use History This section includes a history of the smoking, or tobacco-related health factors, that were collected on or before the date of the Encounter. The data comes from the [place] facility where the Encounter took place. Date/Time Smoking Status/Tobacco Use Comment F acility Dec 05, 2019 01:53 PM [facility]CO [facility] May 26, 2016 02:32 PM LIFETIME NON-TOBACCO [facility]ER [facility] Encounter Notes: All associated encounter notes This section contains the clinical notes associated to the Encounter. Date/Time Encounter Note(s) Provider Source Mar 28, 2023 03:38 PM PRIMARY CARE [facility] MESSAGING: LOCAL TITLE: PRIMARY CARE SECURE MESSAGING STANDARD TITLE: PRIMARY CARE SECURE MESSAGING DATE OF NOTE: MAR 28, 2023@15:38 ENTRY DATE: MAR 28, 2023@15:38:15 AUTHOR: PEDRO GOMEZ EXP COSIGNER: URGENCY: STATUS: COMPLETED ------Original Message -------- Sent: 03/27/2023 10:28 PM ET From: INDY KU To: Yessy MOSS_PRIMARY CARE_[facility] Subject: Medication:Valacyclovir Prophylaxis dosage Hello Dr. Moss, I just wanted to inform you that instead of using Valacyclovir for whenever outbreaks occur, I have decided to use it on a daily basis for prophylaxis as I am currently in a relationship with a man. I am not sure if I should take 1 gm daily, or 500mg daily. Would you please clarify this for me, I really don't want any outbreaks. I look forward to hearing from you, and I may need a modified, or increase in refills. Thank you Indy Ku /farhan/ PEDRO GOMEZ RN REGISTERED NURSE Signed: 03/28/2023 15:38 Receipt Acknowledged By: 04/02/2023 08:39 /farhan/ Yi Moss M.D. STAFF PHYSICIAN PEDRO GOMEZ [facility] Mar 28, 2023 03:38 PM PRIMARY CARE SECUR E MESSAGING: LOCAL TITLE: PRIMARY CARE SECURE MESSAGING STANDARD TITLE: PRIMARY CARE SECURE MESSAGING DATE OF NOTE: MAR 28, 2023@15:38 ENTRY DATE: MAR 28, 2023@15:38:33 AUTHOR: PEDRO GOMEZ EXP COSIGNER: URGENCY: STATUS: COMPLETED ------Original Message -------- Sent: 03/27/2023 10:43 PM ET From: INDY KU To: Yessy MOSS_PRIMARY CARE_[facility] Subject: Medication:Accu Check Guide Test Strips - need refill thanks Hi Dr. Moss, Would you pls refill Accu Check Guide Test Strips Thank you /farhan/ PEDRO GOMEZ RN REGISTERED NURSE Signed: 03/28/2023 15:38 Receipt Acknowledged By: 03/28/2023 18:54 /farhan/ Yi Moss M.D. ST[facility]FF [facility]IC[facility]
--- OUTSIDE RECORDS SUMMARY | 2024-03-10 09:09 | XMS_ITS | Encounter Summary ---
Author Name [place] Address [address] [place] [address] Care Team Providers Care Marshmallow Machine Worker Name Role Phone GARRETT GOOD Primary Care [...] Boykin's Name Patient's Relationship to Policy Boykin [facility] CE ORGANIZ HMO Oct 06, 2018 O [id number] MEREDITH KU NN PATIENT ANTHEM BCBS CT FEDERAL PREFERRED PROVIDER ORGANIZAT ION (PPO) BASIC FAMIL Y Jan 31, 2015 [id number] MEREDITH KU NN PATIENT ANTHEM BCBS OF CT (BLUECARD) HIGH DEDUCTIBL E HEALTH PLAN CLINI [facility] & SUP HDHP Oct 06, 2018 [id number] MEREDITH KU NN PATIENT BCBS [place] HIGH DEDUCTIBL E HEALTH PLAN CLINI [facility] AND [place] HDHP Oct 06, 2018 [id number] MEREDITH KU NN PATIENT BCBS [place] HIGH DEDUCTIBL E HEALTH PLAN CLINI CHRISTINE SUPP HDHP Oct 06, [id number] [phone] DELUISITOLY NN PATIENT BCBS OF [facility] CE ORGANIZ CLINI CHRISTINE AND SUPPO RT Oct 06, [id number] [phone] DELUISITOLY NN PATIENT BCBS OF [facility] PREFERRED PROVIDER ORGANIZAT ION (PPO) BASIC FAMIL Y Jan 31, 2015 [id number] DEHNTAMEKALY NN PATIENT [place] FEPRX PLAN PRESCRIPT ION BCBS FEP Jan 31, 2015 [id number] MEREDITH KU NN PATIENT [place]-F EP BCBS PRESCRIPT ION BCBS FEP PLAN Jan 31, 2015 [id number] ELMIRALY NN PATIENT EXPRESS SCRIPTS PRESCRIPT ION HMO Oct 06, 2018 L4TA [id number] ELMIRALY NN PATIENT EXPRESS SCRIPTS PRESCRIPT ION CLINI [facility] SUPPO RT Sep 19, 2018 L4TA [id number] DELUISITOLY NN PATIENT EXPRESS SCRIPTS ([id number]) PRESCRIPT ION HDHP Oct 06, 2018 L4TA [id number] DEHNEHLY NN PATIENT EXPRESS SCRIPTS ([id number]) PRESCRIPT ION L4TA Oct 06, 2018 L4TA [id number] DEHNEHLY NN PATIENT EXPRESS SCRIPTS ([id number]) PRESCRIPT ION L4TA HDHP Oct 06, 2018 L4TA [id number] DELUISITOLY NN PATIENT EXPRESS SCRIPTS RX PRESCRIPT ION CLINI [facility] AND SUPPO RT Oct 06, 2018 L4TA [id number] DEHNEH,LY NN PATIENT [id number] [facility] CE ORGANIZ CLINI CHRISTINE AND SUPPO RT Oct 06, [id number] DEHNTAMEKALY NN PATIENT [id number] [facility] CE ORGANIZ CLINI CHRISTINE AND SUPPO RT Oct 06, [id number] DEHNEH,LY NN PATIENT G210 BCBS ([facility]) [facility] CE ORGANIZ CLINI CHRISTINE AND SUPPO RT Oct 06, [id number] DEHNEH,LY NN PATIENT G210 BCBS ([facility]) [facility] AND SUPPO RT Oct 06, [id number] DEHNEH,LY NN PATIENT MEDICARE (WN) MEDICARE ) PART A Nov 19, 2006 PART A [id number] DEHNEH,LY NN PATIENT MEDICARE (WN) MEDICARE ) PART A Nov 19, 2006 PART A [id number] DEHNEH,LY NN PATIENT MEDICARE (WN) MEDICARE ) PART A Nov 19, 2006 PART A [id number] DEHNEH,LY NN PATIENT MEDICARE ([facility]) MEDICARE ) PART B Nov 19, 2006 PART B [id number] DEHNEH,LY NN PATIENT MEDICARE (WNR) MEDICARE ) PART A Nov 19, 2006 PART A [id number] DEHNEH,LY NN PATIENT MEDICARE (WN) MEDICARE ) PART A Nov 19, 2006 PART A [id number] DEHNEH,LY NN PATIENT MEDICARE (WN) MEDICARE ) PART A Nov 19, 2006 PART A [id number] DEHNEH,LY NN PATIENT MEDICARE (WN) MEDICARE ) PART A Nov 19, 2006 PART A [id number] DEHNEH,LY NN PATIENT MEDICARE (WNR) MEDICARE ) PART B Nov 19, 2006 PART B [id number] DEHNEH,LY NN PATIENT Selected Encounter This section includes the information on record at OR for the Encounter. Date/Time Encounter Type Encounter Description Reason Provider Source Apr 05, 2023 01:00 PM THERAPEUTIC EXERCISES PHYSICAL THERAPY ICD-10-CM M72.2 Plantar fascial fibromatosis MATT GOMEZ IHE Encounter Template Text not used by [place] Assessments - Encounter Diagnoses This section includes the primary and secondary diagnoses documented for the Encounter. Date/Time Primary/Secondary Diagnosis Diagnosis Name Provider Source Apr 05, 2023 04:17 PM PRIMARY Plantar fascial fibromatosis MATT GOMEZ [facility] [place] [facility] Plan of Treatment: Future Appointments (+ 6 months) and Future Tests (+/- 45 days) The Plan of Treatment section includes future care activities for the patient from all [place] [facility] This section includes future appointments and future orders which are active, pending or scheduled. Future Appointments This section includes appointments that were scheduled to occur 6 months from the date of the Encounter, up to a maximum of 20 appointments. The data comes from all [place] treatment facilities. Appointment Date/Time Appointment Type Appointme nt Facility Name Apr 12, 2023 01:00 PM AMBULATORY - [facility] MEDICIN E [facility] [place] [facility] Apr 20, 2023 02:30 PM [facility] May 11, 2023 03:45 PM AMBULATORY - NONE [facility] [place] [facility] May 11, 2023 04:00 PM AMBULATORY - NONE [facility] [place] [facility] May 18, 2023 01:00 PM AMBULATORY - MEDICINE [place] [facility] [place] [facility] May 24, 2023 09:30 AM AMBULATORY - REHAB MEDICIN E [facility] [place] [facility] Jun 06, 2023 02:00 PM AMBULATORY - MEDICINE [facility] June 22, 2023 01:30 PM AMBULATORY - MEDICINE [place] [facility] [place] [facility] July 05, 2023 03:00 PM AM[facility]ULAT[facility] - [facility]RY [facility] July 06, 2023 01:30 PM AMBULATORY - MEDICINE [place] [facility] [place] [facility] Aug 31, 2023 10:00 AM AMBULATORY - MEDICINE [place] [facility] [place] [facility] Sep 04, 2023 01:30 PM AMBULATORY - [facility]RY [facility] Sep 11, 2023 03:00 PM AMBULATORY - MEDICINE [facility] Sep 13, 2023 08:00 AM AMBULATORY - MEDICINE [place] [facility] [place] [facility] Social History: Smoking Status (Most current) and Tobacco Use (All prior to encounter date) This section includes the most current, and the historical, smoking and tobacco- related health factors from the [place] facility where the Encounter took place. Current Smoking Status This section includes the most current smoking, or tobacco-related health factor, from the [place] facility where the Encounter took place. Date/Time Current Smoking Status Comment Facil ity Aug 11, 2022 02:50 PM [facility] Tobacco Use History This section includes a history of the smoking, or tobacco-related health factors, that were collected on or before the date of the Encounter. The data comes from the [place] facility where the Encounter took place. Date/Time Smoking Status/Tobacco Use Comment F acility Dec 05, 2019 01:53 PM [facility]CO [facility] May 26, 2016 02:32 PM LIFETIME NON-TOBACCO [facility]ER [facility] Encounter Notes: All associated encounter notes This section contains the clinical notes associated to the Encounter. Date/Time Encounter Note(s) Provider Source Apr 05, 2023 04:16 PM PHYSICAL THERAPY N OTE: [facility] TITLE: PHYSICAL THERAPY STANDARD TITLE: PHYSICAL THERAPY NOTE DATE OF NOTE: APR 05, 2023@16:16 ENTRY DATE: APR 05, 2023@16:16:34 AUTHOR: JENSEN GOMEZ COSIGNER: URGENCY: STATUS: COMPLETED Initial Evaluation date: 03/15/23 Progress Note Date: n/a Treatment #: 2 Treatment time: 32min Diagnosis: pain L ankle/foot Provider: dr cardoza/ referring provider dr goff PT Treatment Precautions: DM but sugars well controlled, HTN, connective tissue disorder Patient identified by full name and date of SUBJECTIVE: It's going well next pay day I'm going to get new boots OBJECTIVE: Pt reporting L heel pain @1-2 currently, did 3 hours of housework yesterday and felt the pain in both feet but the pain subsided in the evening THERAPEUTIC EXERCISE: MINUTES: 18 - nustep x10min L1-3 - PF stretch on board x5 - plantar fascia stretch on step x4 - pt education in bicep curl blue band with toe flexion/no shoe on 2x10 added to HEP MANUAL THERAPY: MINUTES: 10 - STM/CFM direct to heel/Achilles insertion and along medial fascia SELF CARE/EDUCATION: MINUTES: -- -Discussed w/ pt trying 15min out/15min back hike is hoping to be able to tolerate 6-7miles hike in [place] on vacation in June this year [employer] ( H[employer] ): Access Code: [email or web address] URL: [email or web address] Date: 03/15/2023 Prepared by: [facility] Patient education was provided for all aspects of care during this clinical encounter. ASSESSMENT: Tolerated treatment well, tolerating exercises well, pain overall reducing PLAN: continue per plan of care, dc manual only perform PRN, continue with ankle and foot intrinsic strengthening /es/ JENSEN GOMEZ PT PHYSICAL THERAPIST Signed: 04/06/2023 10:11 JENSEN GOMEZ [facility]
--- OUTSIDE RECORDS SUMMARY | 2024-03-10 09:09 | XMS_ITS | Encounter Summary ---
Author Name [facility] [place] Address [address] [place] [address] Care Team Providers Care Vocal Performer Name Role Phone GARRETT GOOD Primary Care [...] Boykin's Name Patient's Relationship to Policy Boykin [facility]GANIZ HMO Oct 06, 2018 HMO [id number] MEREDITH KU NN PATIENT ANTHEM BCBS CT FEDERAL PREFERRED PROVIDER ORGANIZAT ION (PPO) BASIC FAMIL Y Jan 31, 2015 [id number] MEREDITH KU NN PATIENT ANTHEM BCBS OF CT (BLUECARD) HIGH DEDUCTIBL E HEALTH PLAN CLINI [facility]P HDHP Oct 06, 2018 [id number] MEREDITH KU NN PATIENT BCBS [place] HIGH DEDUCTIBL E HEALTH PLAN CLINI [facility] AND [place]LAKE HDHP Oct 06, 2018 [id number] MEREDITH KU NN PATIENT BCBS OF [place] HIGH DEDUCTIBL E HEALTH PLAN CLINI CHRISTINE SUPP HDHP Oct 06, [id number] [phone] DELUISITOLY NN PATIENT BCBS OF [place] [facility] CE ORGANIZ CLINI CHRISTINE AND SUPPO RT Oct 06, [id number] [phone] DEMEREDITH JORGE NN PATIENT BCBS OF [facility] PREFERRED PROVIDER ORGANIZAT ION (PPO) BASIC FAMIL Y Jan 31, 2015 [id number] [phone] DEHNTAMEKALY NN PATIENT [place] FEPRX PLAN PRESCRIPT ION BCBS FEP Jan 31, 2015 [id number] ELMIRALY NN PATIENT [place]-F EP BCBS PRESCRIPT ION BCBS FEP PLAN Jan 31, 2015 [id number] ELMIRALY NN PATIENT EXPRESS SCRIPTS PRESCRIPT ION HMO Oct 06, 2018 L4TA [id number] DELUISITOLY NN PATIENT EXPRESS SCRIPTS PRESCRIPT ION CLINI [facility] AND SUPPO RT Sep 19, 2018 L4TA [id number] DELUISITOLY NN PATIENT EXPRESS SCRIPTS ([id number]) PRESCRIPT ION HDHP Oct 06, 2018 L4TA [id number] DEHNEHLY NN PATIENT EXPRESS SCRIPTS ([id number]) PRESCRIPT ION L4TA Oct 06, 2018 L4TA [id number] DEHNEHLY NN PATIENT EXPRESS SCRIPTS ([id number]) PRESCRIPT ION L4TA HDHP Oct 06, 2018 L4TA [id number] DELUISITOLY NN PATIENT EXPRESS SCRIPTS RX PRESCRIPT ION CLINI [facility] AND SUPPO RT Oct 06, 2018 L4TA [id number] DEHNEH,LY NN PATIENT [id number] [facility] CE ORGANIZ CLINI CHRISTINE AND SUPPO RT Oct 06, [id number] DEHNTAMEKALY NN PATIENT [id number] [facility] CE ORGANIZ CLINI CHRISTINE AND SUPPO RT Oct 06, [id number] DEHNEH,LY NN PATIENT G210 BCBS ([facility] AND SUPPO RT Oct 06, 2018 [id number] DEHNEH,LY NN PATIENT G210 BCBS (PROFESSIO NAL) [facility] CE ORGANIZ CLINI CHRISTINE AND SUPPO RT Oct 06, [id number] DEHNEH,LY NN PATIENT MEDICARE (WNR) MEDICARE () PART A Nov 19, 2006 PART A [id number] DEHNEH,LY NN PATIENT MEDICARE (WNR) MEDICARE ) PART A Nov 19, 2006 PART A [id number] DEHNEH,LY NN PATIENT MEDICARE (WNR) MEDICARE ) PART B Nov 19, 2006 PART B [id number] DEHNEH,LY NN PATIENT MEDICARE (WN) MEDICARE ) PART A Nov 19, 2006 PART A [id number] DEHNEH,LY NN PATIENT MEDICARE (WNR) MEDICARE () PART A Nov 19, 2006 PART A [id number] DEHNEH,LY NN PATIENT MEDICARE (WNR) MEDICARE () PART A Nov 19, 2006 PART A [id number] DEHNEH,LY NN PATIENT MEDICARE (WNR) MEDICARE ) PART A Nov 19, 2006 PART A [id number] DEHNEH,LY NN PATIENT MEDICARE (WNR) MEDICARE ) PART A Nov 19, 2006 PART A [id number] DEHNEH,LY NN PATIENT MEDICARE (WNR) MEDICARE ) PART B Nov 19, 2006 PART B [id number] [phone] DEHNEH,LY NN PATIENT Selected Encounter This section includes the information on record at [place] for the Encounter. Date/Time Encounter Type Encounter Description Reason Provider Source Apr 16, 2023 04:28 PM Outpatient Encounter PRIMARY CARE/MEDICINE BOUBACAR GOMEZ Encounter Template Text not used by [place] Plan of Treatment: Future Appointments (+ 6 months) and Future Tests (+/- 45 days) The Plan of Treatment section includes future care activities for the patient from all [place] [facility]. This section includes future appointments and future orders which are active, pending or scheduled. Future Appointments This section includes appointments that were scheduled to occur 6 months from the date of the Encounter, up to a maximum of 20 appointments. The data comes from all [place] treatment facilities. Appointment Date/Time Appointment Type Appointme nt Facility Name Apr 20, 2023 02:30 PM AMBULATORY - PSYCHIATRY [facility] May 11, 2023 03:45 PM AMBULATORY - NONE [place] [facility] [facility] May 11, 2023 04:00 PM AMBULATORY - NONE [place] [facility] [facility] May 18, 2023 01:00 PM AMBULATORY - [place]ICINE [place] [facility] May 24, 2023 09:30 AM AMBULATORY - [place]ICIN [place] [facility] [facility] Jun 06, 2023 02:00 PM AMBULATORY - MEDICINE [facility] June 22, 2023 01:30 PM AM[place]ORY [place]ICINE [place] [facility] July 05, 2023 03:00 PM AMBULATORY - PSYCHIATRY [facility] July 06, 2023 01:30 PM AM[place]ORY [place]ICINE [place] [facility] Aug 31, 2023 10:00 AM AM[place]ORY [place]ICINE [place] [facility] Sep 04, 2023 01:30 PM AMBULATORY - PSYCHIATRY [facility] Sep 11, 2023 03:00 PM AMBULATORY - MEDICINE [facility] Sep 13, 2023 08:00 AM AM[place]ORY [place]INE [place] [facility] Social History: Smoking Status (Most current) and Tobacco Use (All prior to encounter date) This section includes the most current, and the historical, smoking and tobacco- related health factors from the [place] facility where the Encounter took place. Current Smoking Status This section includes the most current smoking, or tobacco-related health factor, from the [place] facility where the Encounter took place. Date/Time Current Smoking Status Jonathan nicholas Aug 11, 2022 02:50 PM VA-TOBACCO NEVER USED [facility] Tobacco Use History This section includes a history of the smoking, or tobacco-related health factors, that were collected on or before the date of the Encounter. The data comes from the [place] facility where the Encounter took place. Date/Time Smoking Status/Tobacco Use Comment F acility Dec 05, 2019 01:53 PM [facility] May 26, 2016 02:32 PM L[facility]ET[facility] Encounter Notes: All associated encounter notes This section contains the clinical notes associated to the Encounter. Date/Time Encounter Note(s) Provider Source Apr 16, 2023 04:28 PM PRIMARY CARE SECUR E MESSAGING: LOCAL TITLE: PRIMARY CARE SECURE MESSAGING STANDARD TITLE: PRIMARY CARE SECURE MESSAGING DATE OF NOTE: APR 16, 2023@16:28 ENTRY DATE: APR 16, 2023@16:28:24 AUTHOR: PEDRO GOMEZ EXP COSIGNER: URGENCY: STATUS: COMPLETED ------Original Message -------- Sent: 04/13/2023 01:44 PM ET From: INDY KU To: Yessy MOSS_PRIMARY CARE_SPOPC Subject: General:Referral Please Hello Dr. Moss, I recently talked with Mr. Crawford, my psychiatrist. He recommended that I ask you for a referral to the [facility] for weight loss/diabetes. I have gained 20 pounds in the last 9 months, and am having difficulty with maintaining this weight at this time. My eating is currently out of control, unfortunately. My depression is also worse, which I have discussed with Dr. Crawford. In addition, I developed plantar fasciitis, for which I am in PT. The weight loss would also help with this. Please let me know your thoughts. Thank you and I look forward to hearing from you. Sincerely, Indy Ku /farhan/ PEDRO GOMEZ, RN REGISTERED NURSE Signed: 04/16/2023 16:28 PEDRO GOMEZ [facility]
--- OUTSIDE RECORDS SUMMARY | 2024-03-10 09:09 | XMS_ITS | Encounter Summary ---
Author Name [place] Address [address] [place] [address] Care Team Providers Care Piggyback Clerk Name Role Phone GARRETT GOOD Primary Care [...] Boykin's Name Patient's Relationship to Policy Boykin [facility] Oct 06, 2018 HMO [id number] MEREDITH KU NN PATIENT ANTHEM BCBS CT FEDERAL PREFERRED PROVIDER ORGANIZAT ION (PPO) BASIC FAMIL Y Jan 31, 2015 [id number] MEREDITH KU NN PATIENT ANTHEM BCBS OF CT (BLUECARD) HIGH DEDUCTIBL E HEALTH PLAN CLINI [facility] & SUP HDHP Oct 06, 2018 [id number] MEREDITH KU NN PATIENT BCBS [place] HIGH DEDUCTIBL E HEALTH PLAN CLINI [facility] [place] HDHP Oct 06, 2018 [id number] MEREDITH KU NN PATIENT BCBS [place] HIGH DEDUCTIBL E HEALTH PLAN CLINI CHRISTINE SUPP HDHP Oct 06, [id number] DELUISITOLY NN PATIENT BCBS OF [employer] [facility] CE ORGANIZ CLINI CHRISTINE AND SUPPO RT Oct 06, [id number] [phone] DEMEREDITH JORGE NN PATIENT BCBS OF [facility] PREFERRED PROVIDER ORGANIZAT ION (PPO) BASIC FAMIL Y Jan 31, 2015 [id number] DEHNTAMEKALY NN PATIENT [place] FEPRX PLAN PRESCRIPT ION BCBS FEP Jan 31, 2015 [id number] ELMIRALY NN PATIENT [place]-F EP BCBS PRESCRIPT ION BCBS FEP PLAN Jan 31, 2015 [id number] ELMIRALY NN PATIENT EXPRESS SCRIPTS PRESCRIPT ION HMO Oct 06, 2018 L4TA [id number] DELUISITOLY NN PATIENT EXPRESS SCRIPTS PRESCRIPT ION CLINI [facility] SUPPO RT Sep 19, 2018 L4TA [id number] DELUISITOLY NN PATIENT EXPRESS SCRIPTS ([id number]) PRESCRIPT ION HDHP Oct 06, 2018 L4TA [id number] DEHNEHLY NN PATIENT EXPRESS SCRIPTS ([id number]) PRESCRIPT ION L4TA Oct 06, 2018 L4TA [id number] DEHNEHLY NN PATIENT EXPRESS SCRIPTS ([id number]) PRESCRIPT ION L4TA HDHP Oct 06, 2018 L4TA [id number] DELUISITOLY NN PATIENT EXPRESS SCRIPTS RX PRESCRIPT ION CLINI [facility] AND SUPPO RT Oct 06, 2018 L4TA [id number] DEHNEH,LY NN PATIENT [id number] [facility] CE ORGANIZ CLINI CHRISTINE AND SUPPO RT Oct 06, [id number] DEHNTAMEKALY NN PATIENT [id number] [facility] CE ORGANIZ CLINI CHRISTINE AND SUPPO RT Oct 06, [id number] DEHNEH,LY NN PATIENT G210 BCBS ([facility]) [facility] AND SUPPO RT Oct 06, 2018 [id number] DEHNEH,LY NN PATIENT G210 BCBS (PROFESSIO NAL) [facility] CE ORGANIZ CLINI CHRISTINE AND SUPPO RT Oct 06, [id number] DEHNEH,LY NN PATIENT MEDICARE (WNR) MEDICARE () PART A Nov 19, 2006 PART A [id number] DEHNEH,LY NN PATIENT MEDICARE (WNR) MEDICARE ) PART A Nov 19, 2006 PART A [id number] DEHNEH,LY NN PATIENT MEDICARE (WNR) MEDICARE () PART B Nov 19, 2006 PART B [id number] DEHNEH,LY NN PATIENT MEDICARE (WN) MEDICARE ) PART A Nov 19, 2006 PART A [id number] DEHNEH,LY NN PATIENT MEDICARE (WNR) MEDICARE () PART A Nov 19, 2006 PART A [id number] DEHNEH,LY NN PATIENT MEDICARE (WNR) MEDICARE () PART A Nov 19, 2006 PART A [id number] [phone] DEHNEH,LY NN PATIENT MEDICARE (WNR) MEDICARE ) PART A Nov 19, 2006 PART A [id number] DEHNEH,LY NN PATIENT MEDICARE (WNR) MEDICARE () PART A Nov 19, 2006 PART A [id number] DEHNEH,LY NN PATIENT MEDICARE (WNR) MEDICARE ) PART B Nov 19, 2006 PART B [id number] DEHNEH,LY NN PATIENT Selected Encounter This section includes the information on record at [place] for the Encounter. Date/Time Encounter Type Encounter Description Reason Provider Source Apr 02, 2023 08:42 AM Outpatient Encounter PRIMARY CARE/MEDICINE AJAY,YI IHE Encounter Template Text not used by [place] Plan of Treatment: Future Appointments (+ 6 months) and Future Tests (+/- 45 days) The Plan of Treatment section includes future care activities for the patient from all [place] [facility]. This section includes future appointments and future orders which are active, pending or scheduled. Future Appointments This section includes appointments that were scheduled to occur 6 months from the date of the Encounter, up to a maximum of 20 appointments. The data comes from all [place] treatment facilities. Appointment Date/Time Appointment Type Appointme nt Facility Name Apr 05, 2023 01:00 PM AMBULATORY - [facility]H[place]ICIN [place] [facility] [place] [facility] Apr 12, 2023 01:00 PM AMBULATORY - REHAB MEDICIN E [place] [facility] [place] [facility] Apr 20, 2023 02:30 PM AMBULATORY - PS[facility]CHIATRY [facility] May 11, 2023 03:45 PM AMBULATORY - NONE [place] [facility] [place] [facility] May 11, 2023 04:00 PM AMBULATORY - NONE [place] [facility] [place] [facility] May 18, 2023 01:00 PM AMBULATORY - MEDICINE [place] [facility] [facility] May 24, 2023 09:30 AM AMBULATORY - REHAB MEDICIN E [place] [facility] [place] [facility] Jun 06, 2023 02:00 PM AMBULATORY - MEDICINE [facility] June 22, 2023 01:30 PM AMBULATORY - MEDICINE [place] [facility] July 05, 2023 03:00 PM AMBULATORY - PS[facility]CHIATRY [facility] July 06, 2023 01:30 PM AMBULATORY - MEDICINE [place] [facility] [place] [facility] Aug 31, 2023 10:00 AM AMBULATORY - MEDICINE [place] [facility] [place] [facility] Sep 04, 2023 01:30 PM AMBULATORY - PS[facility]CHIATRY [facility] Sep 11, 2023 03:00 PM AMBULATORY - MEDICINE [facility] Sep 13, 2023 08:00 AM AMBULATORY - MEDICINE [place] [facility] [place] [place] [facility] Social History: Smoking Status (Most current) and Tobacco Use (All prior to encounter date) This section includes the most current, and the historical, smoking and tobacco- related health factors from the [place] facility where the Encounter took place. Current Smoking Status This section includes the most current smoking, or tobacco-related health factor, from the [place] facility where the Encounter took place. Date/Time Current Smoking Status Comment Facil ity Aug 11, 2022 02:50 PM VA-TOBACCO NEVER USED [facility] Tobacco Use History This section includes a history of the smoking, or tobacco-related health factors, that were collected on or before the date of the Encounter. The data comes from the [place] facility where the Encounter took place. Date/Time Smoking Status/Tobacco Use Comment F acility Dec 05, 2019 01:53 PM VA-TOBACCO NEVER USED [facility] May 26, 2016 02:32 PM LIFETIME NON-TOBACCO USER [facility] Encounter Notes: All associated encounter notes This section contains the clinical notes associated to the Encounter. Date/Time Encounter Note(s) Provider Source Apr 02, 2023 08:42 AM PRIMARY CARE [employer] E MESSAGING: LOCAL TITLE: PRIMARY CARE SECURE MESSAGING STANDARD TITLE: PRIMARY CARE SECURE MESSAGING DATE OF NOTE: APR 02, 2023@08:42 ENTRY DATE: APR 02, 2023@08:42:37 AUTHOR: YI MOSS EXP COSIGNER: URGENCY: STATUS: COMPLETED ------Original Message ------- Sent: 04/02/2023 08:42 AM ET From: YI MOSS To: INDY KU Subject: Medication:Medication Inquiry Shari, I recommend 500mg daily. I'll mail this to you. Have a nice day, Dr. Moss /farhan/ Yi Moss M.D. STAFF PHYSICIAN Signed: 04/02/2023 08:42 YI MOSS [facility]
--- OUTSIDE RECORDS SUMMARY | 2024-03-10 09:09 | XMS_ITS | Encounter Summary ---
Author Name [place] Address [address] [place] [address] Care Team Providers Care Motor Bus Driver Name Role Phone GARRETT GOOD Primary Care [...] Boykin's Name Patient's Relationship to Policy Boykin [facility] CE ORGANIZ HMO Oct 06, 2018 [id number] MEREDITH KU NN PATIENT ANTHEM BCBS CT FEDERAL PREFERRED PROVIDER ORGANIZAT ION (PPO) BASIC FAMIL Y Jan 31, 2015 [id number] MEREDITH KU NN PATIENT ANTHEM BCBS OF CT (BLUECARD) HIGH DEDUCTIBL E HEALTH PLAN CLINI [facility]INE & SUP HDHP Oct 06, 2018 [id number] [phone] MEREDITH KU NN PATIENT BCBS [place] HIGH DEDUCTIBL E HEALTH PLAN CLINI [facility] AND [place] HDHP Oct 06, 2018 [id number] MEREDITH KU NN PATIENT BCBS OF [place] HIGH DEDUCTIBL E HEALTH PLAN CLINI CHRISTINE SUPP HDHP Oct 06, [id number] DELUISITOLY NN PATIENT BCBS OF [facility] CE ORGANIZ CLINI CHRISTINE AND SUPPO RT Oct 06, [id number] DELUISITOLY NN PATIENT BCBS OF [facility] PREFERRED PROVIDER ORGANIZAT ION (PPO) BASIC FAMIL Y Jan 31, 2015 [id number] DEHNTAMEKALY NN PATIENT [employer] FEPRX PLAN PRESCRIPT ION BCBS FEP Jan 31, 2015 [id number] MEREDITH KU NN PATIENT [place]-F EP BCBS PRESCRIPT ION BCBS FEP PLAN Jan 31, 2015 [id number] ELMIRALY NN PATIENT EXPRESS SCRIPTS PRESCRIPT ION HMO Oct 06, 2018 L4TA [id number] ELMIRALY NN PATIENT EXPRESS SCRIPTS PRESCRIPT ION CLINI CHRISTINE AND SUPPO RT Sep 19, 2018 L4TA [id number] DELUISITOLY NN PATIENT EXPRESS SCRIPTS ([id number]) PRESCRIPT ION HDHP Oct 06, 2018 L4TA [id number] DEHNEHLY NN PATIENT EXPRESS SCRIPTS ([id number]) PRESCRIPT ION L4TA Oct 06, 2018 L4TA [id number] DEHNEHLY NN PATIENT EXPRESS SCRIPTS ([id number]) PRESCRIPT ION L4TA HDHP Oct 06, 2018 L4TA [id number] DELUISITOLY NN PATIENT EXPRESS SCRIPTS RX PRESCRIPT ION CLINI [facility]RISTINE AND SUPPO RT Oct 06, 2018 L4TA [id number] DEHNEH,LY NN PATIENT [id number] [facility] CE ORGANIZ CLINI CHRISTINE AND SUPPO RT Oct 06, [id number] DEHNTAMEKALY NN PATIENT [id number] [facility] CE ORGANIZ CLINI CHRISTINE AND SUPPO RT Oct 06, [id number] DEHNEH,LY NN PATIENT G210 BCBS ([facility]) [facility] CE ORGANIZ CLINI CHRISTINE AND SUPPO RT Oct 06, [id number] DEHNEH,LY NN PATIENT G210 BCBS ([facility]IO [facility]) [facility] CL[facility]I CHRISTINE AND SUPPO RT Oct 06, [id number] DEHNEH,LY NN PATIENT MEDICARE (WN) MEDICARE ) PART A Nov 19, 2006 PART A [id number] DEHNEH,LY NN PATIENT MEDICARE (WN) MEDICARE ) PART A Nov 19, 2006 PART A [id number] DEHNEH,LY NN PATIENT MEDICARE (WN) MEDICARE ) PART A Nov 19, 2006 PART A [id number] DEHNEH,LY NN PATIENT MEDICARE ([facility]) MEDICARE ) PART B Nov 19, 2006 PART B [id number] DEHNEH,LY NN PATIENT MEDICARE (WNR) MEDICARE ) PART A Nov 19, 2006 PART A [id number] DEHNEH,LY NN PATIENT MEDICARE (WN) MEDICARE ) PART A Nov 19, 2006 PART A [id number] DEHNEH,LY NN PATIENT MEDICARE (WN) MEDICARE ) PART A Nov 19, 2006 PART A [id number] DEHNEH,LY NN PATIENT MEDICARE (WN) MEDICARE ) PART A Nov 19, 2006 PART A [id number] DEHNEH,LY NN PATIENT MEDICARE (WNR) MEDICARE ) PART B Nov 19, 2006 PART B [id number] DEHNEH,LY NN PATIENT Selected Encounter This section includes the information on record at [place] for the Encounter. Date/Time Encounter Type Encounter Description Reason Provider Source Apr 12, 2023 01:00 PM THERAPEUTIC EXERCISES PHYSICAL THERAPY ICD-10-CM M72.2 Plantar fascial fibromatosis MATT GOMEZ IHE Encounter Template Text not used by [place] Assessments - Encounter Diagnoses This section includes the primary and secondary diagnoses documented for the Encounter. Date/Time Primary/Secondary Diagnosis Diagnosis Name Provider Source Apr 12, 2023 01:39 PM PRIMARY Plantar fascial fibromatosis MATT GOMEZ [place] [facility] [place] [facility] Plan of Treatment: Future Appointments (+ 6 months) and Future Tests (+/- 45 days) The Plan of Treatment section includes future care activities for the patient from all [place] [facility]. This section includes future appointments and [...] 11, 2023 03:45 PM AMBULATORY - NONE [place] [facility] [place] [facility] May 11, 2023 04:00 PM AMBULATORY - NONE [place] [facility] [place] [facility] May 18, 2023 01:00 PM AMBULATORY - MEDICINE [place] [facility] May 24, 2023 09:30 AM AMBULATORY - REHAB MEDICIN E [place] [facility] [place] [facility] Jun 06, 2023 02:00 PM AMBULATORY - MEDICINE [facility] June 22, 2023 01:30 PM AMBULATORY - MEDICINE [place] [facility] July 05, 2023 03:00 PM AMBULATORY - PS[facility]ATRY [facility] July 06, 2023 01:30 PM AMBULATORY - MEDICINE [place] [facility] [place] [facility] Aug 31, 2023 10:00 AM AMBULATORY - MEDICINE [place] [facility] [place] [facility] Sep 04, 2023 01:30 PM AMBULATORY - PS[facility]CHIATRY [facility] Sep 11, 2023 03:00 PM AMBULATORY - MEDICINE [facility] Sep 13, 2023 08:00 AM AMBULATORY - MEDICINE [place] [facility] Social History: Smoking Status (Most [...] place. Date/Time Current Smoking Status Comment Rory nicholas Aug 11, 2022 02:50 PM VA-TOBACCO NEVER USED [facility] Tobacco Use History This section includes a history of the smoking, or tobacco-related health factors, that were collected on or before the date of the Encounter. The data comes from the [place] facility where the Encounter took place. Date/Time Smoking Status/Tobacco Use Comment Barb acility Dec 05, 2019 01:53 PM VA-TOBACCO NEVER USED [facility] May 26, 2016 02:32 PM LIFETIME NON-TOBACCO USER [facility] Encounter Notes: All associated encounter notes This section contains the clinical notes associated to the Encounter. Date/Time Encounter Note(s) Provider Source Apr 12, 2023 01:34 PM PHYSICAL THERAPY N OTE: LOCAL TITLE: PHYSICAL THERAPY STANDARD TITLE: PHYSICAL THERAPY NOTE DATE OF NOTE: APR 12, 2023@13:34 ENTRY DATE: APR 12, 2023@13:34:47 AUTHOR: JENSEN GOMEZ COSIGNER: URGENCY: STATUS: COMPLETED Initial Evaluation date: 03/15/23 Progress Note Date: n/a Treatment #: 3 Treatment time: 32min Diagnosis: pain L ankle/foot Provider: dr cardoza/ referring provider dr goff PT Treatment Precautions: DM but sugars well controlled, HTN, connective tissue disorder Patient identified by full name and date of SUBJECTIVE: I went out for an hour and 20min hike a couple days ago it was killing me that night but then I woke up the next morning and it was fine OBJECTIVE: Pt reporting L heel pain @1-2/10, she has had some personal problems which led her to going out for a long hike, pain the evening of the hike was 4-5/10 THERAPEUTIC EXERCISE: MINUTES: 30 - nustep x10min L1-3 - PF stretch on board x5 - SL calf raise in // bars 2x10 B - SLS solid ground x10sec no UE - on foam no UE support 3-9sec on foam - eccentric heel lower B on 6 step 2x10 B SELF CARE/EDUCATION: MINUTES: -- -Encouraged continued hiking within means of not aggravating the foot following the activity LAFASO: Access Code: [email or web address] URL: [email or web address] Date: 03/15/2023 Prepared by: [facility] Patient education was provided for all aspects of care during this clinical encounter. ASSESSMENT: Tolerated treatment well, tolerating exercises well, pain overall reducing PLAN: continue per plan of care, dc manual only perform PRN, continue with ankle and foot intrinsic strengthening, balance training /es/ JENSEN GOMEZ PT PHYSICAL THERAPIST Signed: 04/12/2023 13:39 JENSEN GOMEZ [facility]
--- OUTSIDE RECORDS SUMMARY | 2024-03-10 09:09 | XMS_ITS | Encounter Summary ---
Author Name [facility] [place] [facility] [place] Address [address] [place] [address] Care Team Providers Care Scarrer Name Role Phone GARRETT GOOD Primary Care [...] Boykin's Name Patient's Relationship to Policy Boykin [facility] CE ORGANIZ HMO Oct 06, 2018 O [id number] MEREDITH KU NN PATIENT ANTHEM BCBS CT FEDERAL PREFERRED PROVIDER ORGANIZAT ION (PPO) BASIC FAMIL Y Jan 31, 2015 [id number] MEREDITH KU NN PATIENT ANTHEM BCBS OF CT (BLUECARD) HIGH DEDUCTIBL E HEALTH PLAN CLINI [facility] SUP HDHP Oct 06, 2018 [id number] [phone] MEREDITH KU NN PATIENT BCBS [place] HIGH DEDUCTIBL E HEALTH PLAN [facility] [place] HDHP Oct 06, 2018 [id number] MEREDITH KU NN PATIENT BCBS OF [place] HIGH DEDUCTIBL E HEALTH PLAN CLINI [facility] SUPP HDHP Oct 06, 2018 [id number] ATTILATAMEKALY NN PATIENT BCBS OF [place]/[facility] CE ORGANIZ CLINI [facility] AND SUPPO RT Oct 06, [id number] [phone] DEHNTAMEKALY NN PATIENT BCBS OF [facility] PREFERRED PROVIDER ORGANIZAT ION (PPO) BASIC FAMIL Y Jan 31, 2015 [id number] [phone] DELUISITOLY NN PATIENT [place] FEPRX PLAN PRESCRIPT ION BCBS FEP Jan 31, 2015 [id number] ELMIRALY NN PATIENT [place]-F EP BCBS PRESCRIPT ION BCBS FEP PLAN Jan 31, 2015 [id number] ELMIRALY NN PATIENT EXPRESS SCRIPTS PRESCRIPT ION HMO Oct 06, 2018 L4TA [id number] DENEREYDATAMEKALY NN PATIENT EXPRESS SCRIPTS PRESCRIPT ION CLINI [facility]PP[facility] RT Sep 19, 2018 L4TA [id number] DELUISITOLY NN PATIENT EXPRESS SCRIPTS ([id number]) PRESCRIPT ION HDHP Oct 06, 2018 L4TA [id number] DEHNTAMEKALY NN PATIENT EXPRESS SCRIPTS ([id number]) PRESCRIPT ION L4TA Oct 06, 2018 L4TA [id number] DEHNEHLY NN PATIENT EXPRESS SCRIPTS ([id number]) PRESCRIPT ION L4TA HDHP Oct 06, 2018 L4TA [id number] DELUISITOLY NN PATIENT EXPRESS SCRIPTS RX PRESCRIPT ION CLINI [facility] SUPPO RT Oct 06, 2018 L4TA [id number] DELUISITO,LY NN PATIENT [id number] [facility] CE ORGANIZ CLINI [facility] AND SUPPO RT Oct 06, [id number] ELMIRALY NN PATIENT [id number] [facility] CE ORGANIZ CLINI CHRISTINE AND SUPPO RT Oct 06, [id number] DEHNEH,LY NN PATIENT G210 BCBSM ([facility] SUPPO RT Oct 06, [id number] DEHNEH,LY NN PATIENT G210 BCBS ([facility] RT Oct 06, [id number] DEHNEH,LY NN PATIENT MEDICARE (WNR) MEDICARE () PART A Nov 19, 2006 PART A [id number] DEHNEH,LY NN PATIENT MEDICARE (WNR) MEDICARE () PART A Nov 19, 2006 PART A [id number] DEHNEH,LY NN PATIENT MEDICARE (WN) MEDICARE () PART B Nov 19, 2006 PART B [id number] DEHNEH,LY NN PATIENT MEDICARE (WN) MEDICARE ) PART A Nov 19, 2006 PART A [id number] DEHNEH,LY NN PATIENT MEDICARE (WNR) MEDICARE () PART A Nov 19, 2006 PART A [id number] DEHNEH,LY NN PATIENT MEDICARE (WNR) MEDICARE () PART A Nov 19, 2006 PART A [id number] DEHNEH,LY NN PATIENT MEDICARE (WNR) MEDICARE () PART A Nov 19, 2006 PART A [id number] DEHNEH,LY NN PATIENT MEDICARE (WNR) MEDICARE () PART A Nov 19, 2006 PART A [id number] DEHNEH,LY NN PATIENT MEDICARE (WNR) MEDICARE () PART B Nov 19, 2006 PART B [id number] [phone] DEHNEH,LY NN PATIENT Selected Encounter This section includes the information on record at [place] for the Encounter. Date/Time Encounter Type Encounter Description Reason Provider Source Apr 20, 2023 02:30 PM OFFICE O/P EST MOD 30 MIN [facility] - IND ICD-10-CM F33.40 Major depressive disorder, recurrent, in remission, unsp ADIA BERMUDEZ IHE Encounter Template Text not used by [place] Assessments - Encounter Diagnoses This section includes the primary and secondary diagnoses documented for the Encounter. Date/Time Primary/Secondary Diagnosis Diagnosis Name Provider Source Apr 20, 2023 03:44 PM PRIMARY Major depressive disorder, recurrent, in remission, unsp MINDA BERMUDEZ Apr 20, 2023 03:44 PM SECONDARY Post-traumatic stress disorder, chronic MINDA BERMUDEZ Plan of Treatment: Future Appointments (+ 6 months) and Future Tests (+/- 45 days) The Plan of Treatment section includes future care activities for the patient from [facility] [place] [facility] This section includes future appointments and future orders which are active, pending or scheduled. Future Appointments This section includes appointments that were scheduled to occur 6 months from the date of the Encounter, up to a maximum of 20 appointments. The data comes from all [place] treatment facilities. Appointment Date/Time Appointment Type Appointme nt Facility Name May 11, 2023 03:45 PM AMBULATORY - NONE [place] [facility] [place] [facility] May 11, 2023 04:00 PM AMBULATORY - NONE [place] [facility] [place] [facility] May 18, 2023 01:00 PM AMBULATORY - MEDICINE [place] [facility] [place] [facility] May 24, 2023 09:30 AM AMBULATORY - REHAB MEDICIN E [place] [facility] [place] [facility] Jun 06, 2023 02:00 PM AMBULATORY - MEDICINE [facility] June 22, 2023 01:30 PM AMBULATORY - MEDICINE [place] [facility] [place] [facility] July 05, 2023 03:00 PM AMBULATORY - PSYCHIATRY [facility] July 06, 2023 01:30 PM AMBULATORY - MEDICINE [place] [facility] [place] [facility] Aug 31, 2023 10:00 AM AMBULATORY - MEDICINE [place] [facility] [place] [facility] Sep 04, 2023 01:30 PM AMBULATORY - PSYCHIATRY [facility] Sep 11, 2023 03:00 PM AMBULATORY - MEDICINE [facility] Sep 13, 2023 08:00 AM AMBULATORY - MEDICINE [facility] [place] [facility] Social History: Smoking Status (Most current) and [...] Date/Time Current Smoking Status Comment Rory nicholas Nov 22, 2020 11:00 AM VA-TOBACCO NEVER USED [place] Tobacco Use History This section includes a history of the smoking, or tobacco-related health factors, that were collected on or before the date of the Encounter. The data comes from the [place] facility where the Encounter took place. Date/Time Smoking Status/Tobacco Use Comment F acility Jan 31, 2018 09:33 AM VA-TOBACCO NEVER USED [place] May 10, 2017 01:08 PM LIFETIME NON-TOBACCO USER [facility] Mar 02, 2015 09:05 AM LIFETIME NON-TOBACCO USER [place] July 10, 2001 02:49 PM LIFETIME NON-TOBACCO USER [place] Encounter Notes: All associated encounter notes This section contains the clinical notes associated to the Encounter. Date/Time Encounter Note(s) Provider Source Apr 20, 2023 02:37 PM TELEHEALTH NOTE: LOCAL TITLE: [place] [employer] [facility]CT PSYCHIATRIST NOTE STANDARD TITLE: TELEHEALTH NOTE DATE OF NOTE: APR 20, 2023@14:37 ENTRY DATE: APR 20, 2023@14:37:10 AUTHOR: MINDA BERMUDEZ EXP COSIGNER: URGENCY: STATUS: COMPLETED [place] Video Connect (VVC) Standard Documentation VVC Clinician Resources Only: E911 (Emergency Call Relay Center): [phone] National [facility] Crisis Line - 988 then press #1. [facility] Suicide Coordinator [phone], Ext. [phone]; Back-up Ext. [phone] [place] Police, Marilu BONNER [phone] Introduction: Visit is being conducted by [place] [employer] [place] identified with 2 identifiers: [X] Full Name [X] Date of [ ] VA ID Card Emergency Plan: confirmed and/or provided the following information in case of emergency or technology failure. PATIENT PHONE - PHONE NUMBER [CELLULAR] - Is patient phone number correct, if not, enter below: [facility]'s phone number: INDY KU [address] [place] [address], [phone] 's present location and address for appointment: same [facility]'s emergency contact name and phone number: chart reported that location is private and safe: Yes Informed Consent: [facility] informed of the risks and benefits of Telehealth video care. [facility] has the right to refuse video services. If refuses video visit, a [id number]-ct-[id number] visit will be scheduled. [facility] verbalized consent for this video visit: Yes provided consent for any other persons present for visit: N/A If yes, who and relationship to patient: Secure visit: Visit was locked for security and privacy:Yes 30 min for encounter, including chart review, interview, charting chart reviewed Patient presents as relatively stable, despite recent stressors, which she reports discussing psychotherapy at the [facility]. Mood relatively stable. She reports that depression, anxiety and PTSD symptoms are significantly improved with medication. Affect brightens appropriately. She denies suicidal and violent ideation. Again, h/o using DBT skills to improve safety and sx's. No psychotic symptoms. Well organized thoughts. No paranoid or delusional content presented. Future oriented. Speech is normal. Cognitive exam grossly intact. Future oriented. Has interests, busy. The patient feels that she still needs up to 100 mg at bedtime of Seroquel to help with mood/anxiety/sleep. See below. She would like to keep psychiatric medications the same, she finds them significantly beneficial. Well-tolerated. Benefits outweigh risks. She denies psych medication side effects. No daytime sedation. Reports psych medication compliance She previously denied alcohol and drug abuse; reports occ drink The patient did retire from her job working for the [employer] system, she feels less stress because of leaving this job. But she is very busy with appointments for her daughter. wt 236 lbs 07/2022 Active problems - Computerized Problem List is the source for the followin. Venous thrombosis 2. Recurrent genital herpes simplex 3. Connective tissue disease 4. Osteoarthritis 5. Binge eating disorder 6. Tendinitis 7. Type II diabetes mellitus 8. Cholelithiasis 9. Myalgia * 10. Laparoscopy, Surgical, Appendectomy 11. Calcifying tendinitis of shoulder 12. Tendinitis * 13. Screening Mammogram for Malignant Neoplasms of the Breast, other 14. Recurrent major depression (SNOMED CT 27731559) 15. Attention-Deficit/Hyperactivity Disorder NOS 16. Obesity (SNOMED CT 370242405) 17. Chronic post-traumatic stress disorder (SNOMED CT 327881525) 18. Fracture 19. Mastodynia * 20. ACCRETIONS ON TEETH 21. UNSPECIFIED DENTAL CARIES 22. Hysterectomy 23. Diabetes Mellitus Type II or unspecified 24. Hypercholesterolemia 25. Other and unspecified ovarian cyst 26. Temporomandibular Joint Syndrome 27. Complete External Hemorrhoidectomy 28. Asthma 29. HTN 30. Anemia Active Outpatient Medications (including Supplies): Active Outpatient Medications Status ======= 1) ACCU-CHEK GUIDE (GLUCOSE) TEST STRIP USE 1 STRIP TO ACTIVE (S) TEST BLOOD SUGARS EVERY OTHER DAY [NEW VERSION OF TEST STRIP - USE WITH GUIDE ME METER] 2) CHOLECALCIF 25MCG (D3-1,000UNIT) TAB TAKE ONE TABLET ACTIVE BY MOUTH ONCE DAILY FOR VITAMIN SUPPLEMENTATION 3) DICLOFENAC NA 1% TOP GEL APPLY 2 GRAMS TOPICALLY FOUR HOLD TIMES DAILY NEEDED FOR OSTEOARTHRITIS - USE DOSING CARD PROVIDED IN BOX 4) ESCITALOPRAM OXALATE 20MG TAB TAKE ONE TABLET BY ACTIVE (S) MOUTH ONCE DAILY FOR MOOD 5) MELATONIN 3MG CAP/TAB TAKE TWO CAPSULE/TABLET BY ACTIVE MOUTH AT BEDTIME NEEDED -FOR INSOMNIA 6) METFORMIN HCL 750MG 24HR SA TAB TAKE TWO TABLETS BY ACTIVE MOUTH EVERY MORNING 7) NAPROXEN 500MG TAB TAKE ONE TABLET BY MOUTH TWICE ACTIVE DAILY FOR PAIN TAKE WITH FOOD 8) QUETIAPINE FUMARATE 25MG TAB TAKE ONE TABLET BY MOUTH ACTIVE (S) AT BEDTIME NEEDED FOR ANXIETY. YOU MAY TAKE UP TO THREE ADDITIONAL TABLETS AT BEDTIME IF NEEDED. 9) TRAZODONE HCL 100MG TAB TAKE TWO TABLETS BY MOUTH AT ACTIVE BEDTIME NEEDED FOR INSOMNIA ASSOCIATED WITH DEPRESSION 10) VALACYCLOVIR HCL 500MG TAB TAKE ONE TABLET BY MOUTH ACTIVE ONCE DAILY FOR INFECTION CAUSED BY A VIRUS Active Non-VA Medications Status ======= 1) Non-VA ALBUTEROL INHALER INHL,ORAL BY MOUTH ACTIVE NEEDED 2) Non-VA HYDROXYCHLOROQUINE SULFATE 200MG TAB 200MG BY ACTIVE MOUTH TWICE DAILY 12 Total Medications From [facility]: Plaquanil (hydroxychloroquine) --patient states that she may talk with clinician at [facility] about taper down this meloxicam tumeric -- pt dc'd this on her own Psychiatric Medicaton hx: also note that pt had other med trials -- zoloft, prozac, seroquel, trilafon, doxepin -- better response to lexapro currently according to allergy list -- disinhibited in past w ativan IMP: dsm-5 Unspecified depressive disorder -- 100% sc for major depression PTSD, chronic Unspecified dissociative disorder h/o addictive behaviors -- although denies substance abuse Binge eating disorder Unspecified ADHD - by neuropsych testing - did not do well w stimulant in past sleep apnea -- states uses cpap pt reports recent dx w autoimmune undiff Connective tissue disease/fibromyalgia -- followed by rheumatology at [facility] -- dx w RA, possible TREATMENT PLAN: Careful risk assessment performed. See C-SSRS 02/05 - same today Probably low current risk for suicide or violence -- the patient denied suicidal and violent ideation, and the suicide prevention information and hotline were reviewed w patient. The patient also understands to call 911 or to go to ER in the event of an emergency. The pt is also DBT trained and has used DBT skills in past for mood regulation and safety -- she agrees to continue to do this. Continue w psychotherapist at [facility] ctr therapist Dr Nguyen Chris -- pt finds very helpful QUETIAPINE WILL BE DOSED 25 MG NIGHTLY MAY TAKE UP TO 75 MG ADDITIONAL DOSE IF NEEDED NIGHTLY (NOT TO EXCEED 100 MG AT BEDTIME). Patient verbalizes good understanding of side effect profile as discussed in previous notes. See my prior notes for discussion of risks and benefits of quetiapine for patient. Benefits outweigh risks. The patient will try to decrease this when possible. She will have the option of taking Seroquel as little as 25 mg at bedtime or as much is 100 mg at bedtime, patient has been responsible in adjusting this dosing, as needed. She denies side effects at higher dose. Again, see my prior notes for extensive discussion of the rationale and side effect profile of quetiapine with patient CONTINUE LEXAPRO 20 MG DAILY -- for ptsd/depression, she does not want to risk decompensation by changing med, she feels she has significant benefit As noted previously, note that the patient never started BuSpar at a previous appointment, but this could be used at a future appointment if needed , if patient has worsening depression CONTINUE TRAZODONE 200 MG QHS PRN INSOMNIA for now (pt has taken trazodone for many yrs, and patient does not want to consider taper down at this time)-- helps sleep along w sleep hygiene, and with other meds see below CONTINUE MELATONIN 6 MG QHS PRN INSOMNIA -- pt finds the trazodone and melatonin together helpful for sleep and well tolerated see my previous notes for full discussion and info from Dr Dumont re QTc interval and risk of drug interactions -- last EKG QTc ok 07/2021, read as normal EKG, with QTc normal range 436. Pt accepts potential cardiac risks -- she feels benefits of current psych meds outweigh risks -- pt well informed and understands/verbalizes the risks. Also Dr Dumont reviewed an earlier EKG -- see her note attached to EKG consult report 03/14/21. Patient feels benefits outweigh risks, this is reasonable. Patient reports compliance with cpap for sleep apnea -- see prior notes 12 step program for sexual addictive behaviors, reports now attending 2 times per wk pt has been DBT trained -- she uses this to help regulate mood, anxiety, safety The discussion with patient about treatments including medications involved shared decision making. The patient was educated about the rationale and plan for the psychiatric medications. Medication instructions were reviewed with the patient. Alternatives to treatment were discussed with the patient. The side effect profile of the psychiatric medications was reviewed with the patient. This also included discussion of potential drug interactions associated with psychiatric medication. The patient discussed/verbalized back the understanding of the medication, side effects, and the plan/instructions, and the patient asked good questions. The patient demonstrated reasonable understanding of the medication side effects and the above-mentioned issues. The benefits of psychiatric medications outweigh risks for this patient. The patient consents to medication treatment. I asked the patient to call me or to come to open access if the patient does not like the effect of psychiatric medication or if has side effects with psychiatric medication. The side effect profile of the atypical antipsychotic medication was discussed with the patient. The risk of EPS, weight gain, metabolic syndrome (including risk of diabetes and hyperlipidemia), sedation, dizziness, orthostatic hypotension, falling, and TD with the atypical antipsychotic agent was reviewed with the patient. The pt demonstrated reasonable understanding of the side effect profile of the atypical antipsychotic medication. The patient agrees to the medication. The benefits of treatment outweigh risks for this patient. The patient's primary care physician follows blood pressure, weights, lipids, glucose; see last hemoglobin A1c and lipid profile in chart through primary care rtc in about 2-3 mo for psych med follow up; I advised patient to return to clinic in open access sooner by calling if needed Encourage alpha stim for anxiety ; but sometimes meditation more effective Medication Reconciliation: Outpatient: Has the patient been taking medications as documented in the EMLR? YES: The patient has been taking medications as documented in the EMLR. Essential Medication List for Review used to complete this medication reconciliation. Depression Screening: Perform PHQ-2 A PHQ-2 screen was performed. The score was 1 which is a negative screen for depression. Over the past two weeks, how often have you been bothered by the following problems? 1. Little interest or pleasure in doing things Not at all 2. Feeling down, depressed, or hopeless Several days Alcohol Use Screen (AUDIT-C): Alcohol Screen: SCREEN FOR ALCOHOL (AUDIT-C) An alcohol screening test (AUDIT-C) was negative (score=1). 1. How often did you have a drink containing alcohol in the past year? Consider a drink to be a 12 ounce can or bottle of regular beer, 8 ounces of malt liquor, a 5 ounce glass of table wine, or a 1.5 ounce shot of liquor (like scotch, gin, or vodka). Monthly or less 2. How many drinks containing alcohol did you have on a typical day when you were drinking in the past year? One or two drinks 3. How often did you have 4 or more drinks on one occasion in the past year? Never MH AIMS Testing: AIMS (Mental Health Instrument) The patient was evaluated for symptoms of tardive dyskinesia using the AIMS. Total score for items 1-7: 0 /es/ MINDA BERMUDEZ MD STAFF PSYCHIATRIST Signed: 04/20/2023 15:44 Receipt Acknowledged By: 04/20/2023 15:55 /es/ Melissa Dominguez ADVANCED DIRECTOR OF DIVERSITY AND INCLUSION 04/20/2023 15:52 /es/ MELODY BARBA ADVANCED DIRECTOR OF DIVERSITY AND INCLUSION MINDA BERMUDEZ
--- OUTSIDE RECORDS SUMMARY | 2024-03-10 09:09 | XMS_ITS | Encounter Summary ---
Author Name [facility] [facility] [place] Address [address] [place] [address] Care Team Providers Care Surveyor Helper Name Role Phone GARRETT GOOD Primary Care [...] CE ORGANIZ HMO Oct 06, 2018 [id number] MEREDITH KU NN PATIENT ANTHEM BCBS CT FEDERAL PREFERRED PROVIDER ORGANIZAT ION (PPO) BASIC FAMIL Y Jan 31, 2015 [id number] MEREDITH KU NN PATIENT ANTHEM BCBS OF CT (BLUECARD) HIGH DEDUCTIBL E HEALTH PLAN CLINI [facility]P HDHP Oct 06, 2018 [id number] MEREDITH KU NN PATIENT BCBS [place] HIGH DEDUCTIBL E HEALTH PLAN CLINI [facility] [place] HDHP Oct 06, 2018 [id number] [phone] MEREDITH KU NN PATIENT BCBS OF [place] HIGH DEDUCTIBL E HEALTH PLAN CLINI [facility] SUPP HDHP Oct 06, 2018 [id number] ATTILATAMEKALY NN PATIENT BCBS OF [place]/[facility] CE ORGANIZ CLINI [facility] AND SUPPO RT Oct 06, 2018 [id number] DELUISITOLY NN PATIENT BCBS OF [facility] PREFERRED PROVIDER ORGANIZAT ION (PPO) BASIC FAMIL Y Jan 31, 2015 [id number] [phone] ATTILATAMEKALY NN PATIENT [place] FEPRX PLAN PRESCRIPT ION BCBS FEP Jan 31, 2015 [id number] MEREDITH KU NN PATIENT [place]-F EP BCBS PRESCRIPT ION BCBS FEP PLAN Jan 31, 2015 [id number] ELMIRALY NN PATIENT EXPRESS SCRIPTS PRESCRIPT ION HMO Oct 06, 2018 L4TA [id number] LCNEREYDATAMEKALY NN PATIENT EXPRESS SCRIPTS PRESCRIPT ION CLINI [facility] SUPPO RT Sep 19, 2018 L4TA [id number] DELUISITOLY NN PATIENT EXPRESS SCRIPTS ([id number]) PRESCRIPT ION HDHP Oct 06, 2018 L4TA [id number] DELUISITOLY NN PATIENT EXPRESS SCRIPTS ([id number]) PRESCRIPT ION L4TA Oct 06, 2018 L4TA [id number] DELUISITOLY NN PATIENT EXPRESS SCRIPTS ([id number]) PRESCRIPT ION L4TA HDHP Oct 06, 2018 L4TA [id number] DELUISITOLY NN PATIENT EXPRESS SCRIPTS RX PRESCRIPT ION CLINI [facility] SUPPO RT Oct 06, 2018 L4TA [id number] ELMIRA,LY NN PATIENT [id number] [facility] CE ORGANIZ CLINI [facility]INE AND SUPPO RT Oct 06, 2018 [id number] ELMIRAMEREDITH NN PATIENT [id number] [facility] CE ORGANIZ CLINI CHRISTINE AND SUPPO RT Oct 06, 2018 [id number] DEHNEH,LY NN PATIENT G210 BCBS ([facility]) [facility] CE ORGANIZ CLINI CHRISTINE AND SUPPO RT Oct 06, 2018 [id number] DEHNEH,LY NN PATIENT G210 BCBS ([facility]) [facility] CE ORGANIZ CLINI [facility] AND SUPPO RT Oct 06, [id number] DEHNEH,LY NN PATIENT MEDICARE (WNR) MEDICARE ) PART A Nov 19, 2006 PART A [id number] DEHNEH,LY NN PATIENT MEDICARE (WNR) MEDICARE () PART A Nov 19, 2006 PART A [id number] DEHNEH,LY NN PATIENT MEDICARE (WNR) MEDICARE () PART A Nov 19, 2006 PART A [id number] DEHNEH,LY NN PATIENT MEDICARE (WNR) MEDICARE ) PART A Nov 19, 2006 PART A [id number] DEHNEH,LY NN PATIENT MEDICARE (WNR) MEDICARE () PART B Nov 19, 2006 PART B [id number] DEHNEH,LY NN PATIENT MEDICARE (WNR) MEDICARE () PART A Nov 19, 2006 PART A [id number] DEHNEH,LY NN PATIENT MEDICARE (WNR) MEDICARE () PART A Nov 19, 2006 PART A [id number] DEHNEH,LY NN PATIENT MEDICARE (WNR) MEDICARE ) PART A Nov 19, 2006 PART A [id number] DEHNEH,LY NN PATIENT MEDICARE (WNR) MEDICARE () PART B Nov 19, 2006 PART B [id number] DEHNEH,LY NN PATIENT Selected Encounter This section includes the information on record at [place] for the Encounter. Date/Time Encounter Type Encounter Description Reason Provider Source Mar 29, 2023 04:06 PM Outpatient Encounter TELEPHONE ICD-10-CM F33.40 Major depressive disorder, recurrent, in remission, unsp ADIA BERMUDEZ Encounter Template Text not used by [place] Assessments - Encounter Diagnoses This section includes the primary and secondary diagnoses documented for the Encounter. Date/Time Primary/Secondary Diagnosis Diagnosis Name Provider Source Mar 29, 2023 04:06 PM PRIMARY Major depressive disorder, recurrent, in remission, unsp MINDA BERMUDEZ Plan of Treatment: Future Appointments (+ 6 months) and Future Tests (+/- 45 days) The Plan of Treatment section includes future care activities for the patient from all [place] treatmentfacilities. This section includes future appointments and future orders which are active, pending or scheduled. Future Appointments This section includes appointments that were scheduled to occur 6 months from the date of the Encounter, up to a maximum of 20 appointments. The data comes from all [place] treatment facilities. Appointment Date/Time Appointment Type Appointme nt Facility Name Apr 05, 2023 01:00 PM AMBULATORY [facility] [place] [facility] Apr 12, 2023 01:00 PM AMBULATORY [facility] [place] [facility] Apr 20, 2023 02:30 PM AMBULATORY - PSYCHIATRY [facility] May 11, 2023 03:45 PM AMBULATORY - NONE [facility] [place] [facility] May 11, 2023 04:00 PM AMBULATORY - NONE [facility] [place] [facility] May 18, 2023 01:00 PM AMBULATORY - MEDICINE [facility] [place] [facility] May 24, 2023 09:30 AM AMBULATORY - REHAB MEDICIN [facility] [place] [facility] Jun 06, 2023 02:00 PM AMBULATORY - MEDICINE [facility] June 22, 2023 01:30 PM AMBULATORY - MEDICINE [facility] [place] [facility] July 05, 2023 03:00 PM AMBULATORY - PSYCHIATRY [facility] July 06, 2023 01:30 PM AMBULATORY - MEDICINE [place] [facility] [place] [facility] Aug 31, 2023 10:00 AM AMBULATORY - MEDICINE [facility] [place] [facility] Sep 04, 2023 01:30 PM AMBULATORY - PSYCHIATRY [facility] Sep 11, 2023 03:00 PM [facility] Sep 13, 2023 08:00 AM AMBULATORY - MEDICINE [place] [facility] [place] [facility] Social History: Smoking Status (Most current) and Tobacco Use (All prior to encounter date) This section includes the most current, and the historical, smoking and tobacco- related health factors from the [place] facility where the Encounter took place. Current Smoking Status This section includes the most current smoking, or tobacco-related health factor, from the [place] facility where the Encounter took place. Date/Time Current Smoking Status Comment Rory nicholas Nov 22, 2020 11:00 AM MS-TOBACCO NEVER USED [facility] Tobacco Use History This section includes a history of the smoking, or tobacco-related health factors, that were collected on or before the date of the Encounter. The data comes from the [place] facility where the Encounter took place. Date/Time Smoking Status/Tobacco Use Comment F acility Jan 31, 2018 09:33 AM MS-TOBACCO NEVER USED [facility] May 10, 2017 01:08 PM LIFETIME NON-TOBACCO USER [facility] Mar 02, 2015 09:05 AM LIFETIME NON-TOBACCO USER [facility] July 10, 2001 02:49 PM LIFETIME NON-TOBACCO USER [facility] Encounter Notes: All associated encounter notes This section contains the clinical notes associated to the Encounter. Date/Time Encounter Note(s) Provider Source Mar 29, 2023 04:07 PM MENTAL HEALTH TELE PHONE ENCOUNTER NOTE: LOCAL TITLE: TELEPHONE NOTE/MENTAL HEALTH STANDARD TITLE: MENTAL HEALTH TELEPHONE ENCOUNTER NOTE DATE OF NOTE: MAR 29, 2023@16:07 ENTRY DATE: MAR 29, 2023@16:07:07 AUTHOR: MINDA BERMUDEZ EXP COSIGNER: URGENCY: STATUS: COMPLETED Telephone note 11-20 min for encounter, pt agrees to phone encounter chart reviewed I called patient because of her secure message requesting increasing quetiapine to up to 100 mg at bedtime. She states she has already been taking this dose with good effect and with no side effects. Patient has reported increased anxiety and insomnia and feels the medication is helpful for this. Otherwise, patient presents as relatively stable, despite several stressors. She reports that depression, anxiety and PTSD symptoms are significantly improved with medication, especially with the increase of the quetiapine as mentioned above. Dissociative symptoms probably unchanged. She denies suicidal and violent ideation. Again, h/o using DBT skills to improve safety and sx's. No psychotic symptoms. Well organized thoughts. Future oriented. Speech is normal. Cognitive exam grossly intact. Future oriented. Has interests, busy. She denies psych medication side effects. No daytime sedation. Reports psych medication compliance She previously denied alcohol and drug abuse. 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 Recurrent major depression (SNOMED CT 07741332) 15. Attention-Deficit/Hyperactivity Disorder NOS 16. Obesity (SNOMED CT 193788351) 17. Chronic post-traumatic stress disorder (SNOMED CT 865733086) 18. Fracture 19. Mastodynia * 20. ACCRETIONS [...] TOP GEL APPLY 2 GRAMS TOPICALLY FOUR ACTIVE TIMES DAILY NEEDED FOR OSTEOARTHRITIS - USE DOSING CARD PROVIDED IN BOX 4) ESCITALOPRAM OXALATE 20MG TAB TAKE ONE TABLET BY ACTIVE MOUTH ONCE DAILY FOR MOOD 5) MELATONIN 3MG CAP/TAB TAKE TWO CAPSULE/TABLET BY ACTIVE MOUTH AT BEDTIME NEEDED -FOR INSOMNIA 6) METFORMIN HCL 750MG 24HR SA TAB TAKE TWO TABLETS BY ACTIVE MOUTH EVERY MORNING 7) NAPROXEN 500MG TAB TAKE ONE TABLET BY MOUTH TWICE ACTIVE DAILY FOR PAIN TAKE WITH FOOD 8) QUETIAPINE FUMARATE 25MG TAB TAKE ONE TABLET BY MOUTH ACTIVE AT BEDTIME NEEDED ANXIETY; MAY TAKE AN ADDITIONAL TWO TABLETS AT BEDTIME IF NEEDED (FOR MAXIMUM OF 75 MG AT BEDTIME 9) TRAZODONE HCL 100MG TAB TAKE TWO TABLETS BY MOUTH AT ACTIVE BEDTIME NEEDED FOR INSOMNIA ASSOCIATED WITH DEPRESSION 10) VALACYCLOVIR HCL 1GM TAB TAKE ONE TABLET BY MOUTH ACTIVE ONCE DAILY FOR INFECTION CAUSED BY A VIRUS Active Non-VA Medications Status ======= 1) Non-VA ALBUTEROL INHALER INHL,ORAL BY MOUTH ACTIVE NEEDED 2) Non-VA HYDROXYCHLOROQUINE SULFATE 200MG TAB 200MG BY ACTIVE MOUTH TWICE DAILY 12 Total Medications From [facility] VA: Plaquanil (hydroxychloroquine) --patient states that she may talk with clinician at [facility] about taper down this meloxicam tumeric [...] tissue disease/fibromyalgia -- followed by rheumatology at [facility] -- dx w RA, possible TREATMENT PLAN: [...] to do this. Continue w psychotherapist at [facility] ctr therapist Dr Nguyen Chris -- pt finds very helpful See my 02/05 note for discussion of psychiatric medications, continue plan as outlined in that note, except one medication change will be the increased quetiapine as mentioned above. QUETIAPINE WILL BE DOSED 25 MG NIGHTLY MAY TAKE UP TO 75 MG ADDITIONAL DOSE IF NEEDED NIGHTLY (NOT TO EXCEED 100 MG AT BEDTIME). Patient verbalizes good understanding of side effect profile as discussed in previous notes. The understanding is that this increase will probably be short-term and the patient will start to decrease quetiapine after the next appointment with me 04/19. She will have the option of taking Seroquel as little as 25 mg at bedtime or as much is 100 mg at bedtime, patient has been responsible in adjusting this dosing, as needed. She denies side effects at higher dose. Again, see my prior notes for extensive discussion of the rationale and side effect profile of quetiapine with patient rtc 04/19 for psych med follow up; I advised patient to return to clinic in open access sooner by calling if needed /farhan/ MINDA BERMUDEZ MD STAFF PSYCHIATRIST Signed: 03/29/2023 16:48 MINDA BERMUDEZ
--- OUTSIDE RECORDS SUMMARY | 2024-03-10 09:10 | XMS_ITS | Encounter Summary ---
Author Name [place] Address [address] [place] [address] Care Team Providers Care Tie Tamper Name Role Phone GARRETT GOOD Primary Care [...] Boykin's Name Patient's Relationship to Policy [facility] Oct 06, 2018 HMO [id number] MEREDITH KU NN PATIENT ANTHEM BCBS CT FEDERAL PREFERRED PROVIDER ORGANIZAT ION (PPO) BASIC FAMIL Y Jan 31, 2015 [id number] MEREDITH KU NN PATIENT ANTHEM BCBS OF CT (BLUECARD) HIGH DEDUCTIBL E HEALTH PLAN CLINI [facility] & [facility]P HDHP Oct 06, 2018 [id number] MEREDITH KU NN PATIENT BCBS [place] HIGH DEDUCTIBL E HEALTH PLAN CLINI [facility] [place] HDHP Oct 06, 2018 [id number] [phone] MEREDITH KU NN PATIENT BC[place]IGH DEDUCTIBL E HEALTH PLAN CLINI [facility]STINE SUPP HDHP Oct 06, [id number] DELUISITOLY NN PATIENT BCBS OF CT/[employer] [facility] CE ORGANIZ CLINI CHRISTINE AND SUPPO RT Oct 06, [id number] [phone] DEMEREDITH JORGE NN PATIENT BCBS OF [facility] PREFERRED PROVIDER ORGANIZAT ION (PPO) BASIC FAMIL Y Jan 31, 2015 [id number] DEHNTAMEKALY NN PATIENT [place] FEPRX PLAN PRESCRIPT ION BCBS FEP Jan 31, 2015 [id number] ELMIRALY NN PATIENT [place]-F EP BCBS PRESCRIPT ION BCBS FEP PLAN Jan 31, 2015 [id number] ELMIRALY NN PATIENT EXPRESS SCRIPTS PRESCRIPT ION HMO Oct 06, 2018 L4TA [id number] DELUISITOLY NN PATIENT EXPRESS SCRIPTS PRESCRIPT ION CLINI [facility] SUPPO RT Sep 19, 2018 L4TA [id number] DELUISITOLY NN PATIENT EXPRESS SCRIPTS ([id number]) PRESCRIPT ION HDHP Oct 06, 2018 L4TA [id number] DEHNEHLY NN PATIENT EXPRESS SCRIPTS ([id number]) PRESCRIPT ION L4TA Oct 06, 2018 L4TA [id number] DEHNEHLY NN PATIENT EXPRESS SCRIPTS ([id number]) PRESCRIPT ION L4TA HDHP Oct 06, 2018 L4TA [id number] DELUISITOLY NN PATIENT EXPRESS SCRIPTS RX PRESCRIPT ION CLINI [facility] SUPPO RT Oct 06, 2018 L4TA [id number] DEHNEH,LY NN PATIENT [id number] [facility] CE ORGANIZ CLINI CHRISTINE AND SUPPO RT Oct 06, [id number] DEHNTAMEKALY NN PATIENT [id number] [facility] CE ORGANIZ CLINI CHRISTINE AND SUPPO RT Oct 06, [id number] DEHNEH,LY NN PATIENT G210 BCBS ([facility] AND SUPPO RT Oct 06, 2018 [id number] DEHNEH,LY NN PATIENT G210 BCBS ([facility]) [facility] CE ORGANIZ CLINI CHRISTINE AND SUPPO RT Oct 06, [id number] DEHNEH,LY NN PATIENT MEDICARE (WNR) MEDICARE ) PART A Nov 19, 2006 PART A [id number] DEHNEH,LY NN PATIENT MEDICARE (WNR) MEDICARE () PART A Nov 19, 2006 PART A [id number] DEHNEH,LY NN PATIENT MEDICARE (WNR) MEDICARE () PART A Nov 19, 2006 PART A [id number] DEHNEH,LY NN PATIENT MEDICARE (WN) MEDICARE ) PART B Nov 19, 2006 PART B [id number] DEHNEH,LY NN PATIENT MEDICARE (WNR) MEDICARE () PART A Nov 19, 2006 PART A [id number] [phone] DEHNEH,LY NN PATIENT MEDICARE (WNR) MEDICARE () PART A Nov 19, 2006 PART A [id number] DEHNEH,LY NN PATIENT MEDICARE (WNR) MEDICARE ) PART A Nov 19, 2006 PART A [id number] DEHNEH,LY NN PATIENT MEDICARE (WNR) MEDICARE ) PART A Nov 19, 2006 PART A [id number] DEHNEH,LY NN PATIENT MEDICARE (WNR) MEDICARE ) PART B Nov 19, 2006 PART B [id number] DEHNEH,LY NN PATIENT Selected Encounter This section includes the information on [place] at [place] for the Encounter. Date/Time Encounter Type Encounter Description Reason Provider Source May 01, 2023 10:22 AM Outpatient Encounter PRIMARY CARE/MEDICINE JOSE JUAN VELASQUEZ Encounter Template Text not used by [facility] Plan of Treatment: Future Appointments (+ 6 months) and Future Tests (+/- 45 days) The Plan of Treatment section includes future care activities for the patient [facility] [place] [facility] This section includes future appointments and future orders which are active, pending or scheduled. Future Appointments This section includes appointments that were scheduled to occur 6 months from the date of the Encounter, up to a maximum of 20 appointments. The data comes from all [place] treatment facilities. Appointment Date/Time Appointment Type Appointme nt Facility Name May 11, 2023 03:45 PM AMBULATORY - NONE [place] [facility] [place] [facility] May 11, 2023 04:00 PM AMBULATORY - NONE [place] [facility] [place] [facility] May 18, 2023 01:00 PM AMBULATORY - MEDICINE [place] [facility] [place] [facility] May 24, 2023 09:30 AM AMBULATORY - REHAB MEDICIN [place] [facility] [place] [facility] Jun 06, 2023 02:00 PM AMBULATORY - MEDICINE [facility] June 22, 2023 01:30 PM AMBULATORY - MEDICINE [place] [facility] [place] [facility] July 05, 2023 03:00 PM AMBULATORY - PSYCHIATRY [facility] July 06, 2023 01:30 PM AMBULATORY - MEDICINE [place] [facility] [place] [facility] Aug 31, 2023 10:00 AM AMBULATORY - MEDICINE [place] [facility] [place] [facility] Sep 04, 2023 01:30 PM AMBULATORY - PSYCHIATRY [facility] Sep 11, 2023 03:00 PM AMBULATORY - MEDICINE [facility] Sep 13, 2023 08:00 AM AMBULATORY - MEDICINE [place] [facility] [place] [facility] Oct 29, 2023 04:00 PM AMBULATORY - PSYCHIATRY [facility] Social History: Smoking Status (Most current) and Tobacco Use (All prior to encounter date) This section includes the most current, and the historical, smoking and tobacco- related health factors from the [place] facility where the Encounter took place. Current Smoking Status This section includes the most current smoking, or tobacco-related health factor, from the [place] facility where the Encounter took place. Date/Time Current Smoking Status Comment Rory nicholas Aug 11, 2022 02:50 PM VA-TOBACCO NEVER USED [facility] Tobacco Use History This section includes a history of the smoking, or tobacco-related health factors, that were collected on or before the date of the Encounter. The data comes from the [place] facility where the Encounter took place. Date/Time Smoking Status/Tobacco Use Comment Barb gonzalez Dec 05, 2019 01:53 PM VA-TOBACCO NEVER USED [facility] May 26, 2016 02[facility]32 PM LIFETIME NON-TOBACCO USER [facility] Encounter Notes: All associated encounter notes This section contains the clinical notes associated to the Encounter. Date/Time Encounter Note(s) Provider Source May 01, 2023 03:33 PM ADDENDUM: LOCAL TITLE: Addendum STANDARD TITLE: ADDENDUM DATE OF NOTE: MAY 01, 2023@15:33:18 ENTRY DATE: MAY 01, 2023@15:33:19 AUTHOR: HERLINDA JOHNSON COSIGNER: URGENCY: STATUS: COMPLETED A clinical pharmacy referral has been placed to assist with diabetes and weight loss management. Please advise the [place]. /es/ HERLINDA JOHNSON NP NURSE PRACTITIONER Signed: 05/01/2023 15:33 Receipt Acknowledged By: 05/01/2023 16:01 /farhan/ JOSE JUAN VELASQUEZ LPN LICENSED PRACTICAL NURSE ========= --- Original Document --- 05/01/23 PRIMARY CARE SECURE MESSAGING: ------Original Message -------- Sent: 04/30/2023 08:59 PM ET From: LILLIAN KU To: ANISH JOHNSON KYL E, A_PRIMARY CARE_[facility] Subject: Medication:Medication Request Shari, On Sun. 2023 a message was sent using this platform to inquire about being referred to the GLP-1 clinic to discuss using those medications instead of metformin in order to help regulate my weight. As mentioned I have gained now 25 pounds over the last 10 months. I did not get any response. It is my understanding that the [facility] typically writes back within a 72 hour period. . It has been a total of 17 days and I have yet to hear a response. At the very least would you be willing to write me back with any concerns you may have as to why you are not answering this email. At the very least, would you consider d/c my metformin and write an RX for Junivia? I look forward to hearing from you soon. Sincerely, Lillian Ku /farhan/ JOSE JUAN VELASQUEZ LPN LICENSED PRACTICAL NURSE Signed: 05/01/2023 11:22 Receipt Acknowledged By: 05/01/2023 11:53 /farhan/ MAGGIE MACARIO RN REGISTERED NURSE 05/01/2023 15:30 /farhan/ HERLINDA JOHNSON NP NURSE PRACTITIONER 05/01/2023 ADDENDUM STATUS: COMPLETED Spoke with the and made her aware that this message would be sent to the covering provider to review and advise. [place] was appreciative for the phone call. /farhan/ MAGGIE MACARIO RN REGISTERED NURSE Signed: 05/01/2023 11:53 HERLINDA JOHNSON [place] [facility] [place] [facility] May 01, 2023 10:22 AM PRIMARY CARE KLAUDIA Chopra MESSAGING: LOCAL TITLE: PRIMARY CARE SECURE MESSAGING STANDARD TITLE: PRIMARY CARE SECURE MESSAGING DATE OF NOTE: MAY 01, 2023@10:22 ENTRY DATE: MAY 01, 2023@11:22:02 AUTHOR: JOSE JUAN VELASQUEZ EXP COSIGNER: URGENCY: STATUS: COMPLETED PRIMARY CARE SECURE MESSAGING Has ADDENDA ------Original Message -------- Sent: 04/30/2023 08:59 PM ET From: LILLIAN KU To: ANISH JOHNSON KYL E, A_PRIMARY CARE_[facility] Subject: Medication:Medication Request Shari, On Sun. 2023 a message was sent using this platform to inquire about being referred to the GLP-1 clinic to discuss using those medications instead of metformin in order to help regulate my weight. As mentioned I have gained now 25 pounds over the last 10 months. I did not get any response. It is my understanding that the [facility] typically writes back within a 72 hour period. . It has been a total of 17 days and I have yet to hear a response. At the very least would you be willing to write me back with any concerns you may have as to why you are not answering this email. At the very least, would you consider d/c my metformin and write an RX for Junivia? I look forward to hearing from you soon. Sincerely, Lillian Ku /farhan/ JOSE JUAN VELASQUEZ LPN LICENSED PRACTICAL NURSE Signed: 05/01/2023 11:22 Receipt Acknowledged By: 05/01/2023 11:53 /sindi MACARIO RN REGISTERED NURSE 05/01/2023 15:30 /sindi JOHNSON NP NURSE PRACTITIONER 05/01/2023 ADDENDUM STATUS: COMPLETED Spoke with the and made her aware that this message would be sent to the covering provider to review and advise. was appreciative for the phone call. /sindi MACARIO RN REGISTERED NURSE Signed: 05/01/2023 11:53 05/01/2023 ADDENDUM STATUS: COMPLETED A clinical pharmacy referral has been placed to assist with diabetes and weight loss management. Please advise the . /sindi JOHNSON NP NURSE PRACTITIONER Signed: 05/01/2023 15:33 Receipt Acknowledged By: 05/01/2023 16:01 /sindi VELASQUEZ LPN LICENSED PRACTICAL NURSE 05/01/2023 ADDENDUM STATUS: COMPLETED was sent [facility] message re:above. /sindi VELASQUEZ LPN LICENSED PRACTICAL NURSE Signed: 05/01/2023 16:02 JOSE JUAN VELASQUEZ [place] [facility]
--- OUTSIDE RECORDS SUMMARY | 2024-03-10 09:10 | XMS_ITS ---
Author Name [facility] [place] Address [address] [place] [address] Care Team Providers Care Foil Cutter Name Role Phone GARRETT GOOD Primary Care [...] Boykin's Name Patient's Relationship to Policy Boykin [facility] CE ORGANIZ HMO Oct 06, 2018 O [id number] MEREDITH KU NN PATIENT ANTHEM BCBS CT FEDERAL PREFERRED PROVIDER ORGANIZAT ION (PPO) BASIC FAMIL Y Jan 31, 2015 [id number] MEREDITH KU NN PATIENT ANTHEM BCBS OF CT (BLUECARD) HIGH DEDUCTIBL E HEALTH PLAN CLINI [facility]INE & SUP HDHP Oct 06, 2018 [id number] MEREDITH KU NN PATIENT BCBS [place] HIGH DEDUCTIBL E HEALTH PLAN CLINI [facility] AND [place]LA[place] HDHP Oct 06, 2018 [id number] [phone] MEREDITH KU NN PATIENT BCBS OF [place] HIGH DEDUCTIBL E HEALTH PLAN CLINI CHRISTINE SUPP HDHP Oct 06, [id number] [phone] DEMEREDITH JORGE NN PATIENT BCBS OF [place]/[employer] [facility] CE ORGANIZ CLINI CHRISTINE AND SUPPO RT Oct 06, [id number] [phone] MEREDITH KU NN PATIENT BCBS OF [facility] PREFERRED PROVIDER ORGANIZAT ION (PPO) BASIC FAMIL Y Jan 31, 2015 [id number] DELUISITOLY NN PATIENT [place] FEPRX PLAN PRESCRIPT ION BCBS FEP Jan 31, 2015 [id number] MEREDITH KU NN PATIENT [place]-F EP BCBS PRESCRIPT ION BCBS FEP PLAN Jan 31, 2015 [id number] ELMIRALY NN PATIENT EXPRESS SCRIPTS PRESCRIPT ION HMO Oct 06, 2018 L4TA [id number] ELMIRALY NN PATIENT EXPRESS SCRIPTS PRESCRIPT ION CLINI [facility] SUPPO RT Sep 19, 2018 L4TA [id number] DELUISITOLY NN PATIENT EXPRESS SCRIPTS ([id number]) PRESCRIPT ION HDHP Oct 06, 2018 L4TA [id number] [phone] [id number] DELUISITOLY NN PATIENT EXPRESS SCRIPTS ([id number]) PRESCRIPT ION L4TA Oct 06, 2018 L4TA [id number] DEHNEHLY NN PATIENT EXPRESS SCRIPTS ([id number]) PRESCRIPT ION L4TA HDHP Oct 06, 2018 L4TA [id number] DELUISITOLY NN PATIENT EXPRESS SCRIPTS RX PRESCRIPT ION CLINI [facility] AND SUPPO RT Oct 06, 2018 L4TA [id number] DEHNTAMEKA,LY NN PATIENT [id number] [facility] CE ORGANIZ CLINI CHRISTINE AND SUPPO RT Oct 06, [id number] DENEREYDATAMEKALY NN PATIENT [id number] REPLACED BY [facility] CE ORGANIZ CLINI CHRISTINE AND SUPPO RT Oct 06, [id number] DEHNEH,LY NN PATIENT G210 BCBSM ([facility] CE ORGANIZ CLINI [facility]STINE AND SUPPO RT Oct 06, [id number] DEHNEH,LY NN PATIENT G210 BCBSM ([facility]AL) [facility] CE ORGANIZ CLINI CHRISTINE AND SUPPO RT Oct 06, [id number] DEHNEH,LY NN PATIENT MEDICARE (WNR) MEDICARE () PART A Nov 19, 2006 PART A [id number] DEHNEH,LY NN PATIENT MEDICARE (WNR) MEDICARE () PART A Nov 19, 2006 PART A [id number] DEHNEH,LY NN PATIENT MEDICARE (WNR) MEDICARE () PART A Nov 19, 2006 PART A [id number] DEHNEH,LY NN PATIENT MEDICARE (WN) MEDICARE ) PART B Nov 19, 2006 PART B [id number] DEHNEH,LY NN PATIENT MEDICARE (WNR) MEDICARE () PART A Nov 19, 2006 PART A [id number] [phone] DEHNEH,LY NN PATIENT MEDICARE (WNR) MEDICARE () PART A Nov 19, 2006 PART A [id number] DEHNEH,LY NN PATIENT MEDICARE (WNR) MEDICARE () PART A Nov 19, 2006 PART A [id number] DEHNEH,LY NN PATIENT MEDICARE (WNR) MEDICARE () PART A Nov 19, 2006 PART A [id number] [phone] DEHNEH,LY NN PATIENT MEDICARE (WNR) MEDICARE () PART B Nov 19, 2006 PART B [id number] [phone] DEHNEH,LY NN PATIENT Selected Encounter This section includes the information on record at [place] for the Encounter. Date/Time Encounter Type Encounter Description Reason Pro vider Source May 01, 2023 07:49 AM Outpatient Encounter [facility] Encounter Template Text not used by [facility] Plan of Treatment: Future Appointments (+ 6 months) and Future Tests (+/- 45 days) The Plan of Treatment section includes future care activities for the [facility] [place] [facility] This section includes future appointments and [...] AMBULATORY - NONE [place] [facility] [place] [facility] May 11, 2023 04:00 PM AMBULATORY - NONE [place] [facility] [place] [facility] May 18, 2023 01:00 PM [place] [facility] [place] [facility] May 24, 2023 09:30 AM AMBULATORY - [place]ICIN [place] [facility] [place] [facility] Jun 06, 2023 02:00 PM AMBULATORY - MEDICINE [facility] June 22, 2023 01:30 PM [place] [facility] [place] [facility] July 05, 2023 03:00 PM AMBULATORY - PSYCHIATRY [facility] July 06, 2023 01:30 PM [place] [facility] [place] [facility] Aug 31, 2023 10:00 AM [place] [facility] [place] [facility] Sep 04, 2023 01:30 PM AMBULATORY - PSYCHIATRY [facility] Sep 11, 2023 03:00 PM AMBULATORY - MEDICINE [facility] Sep 13, 2023 08:00 AM [place] [facility] [place] [facility] Oct 29, 2023 04:00 PM AMBULATORY - PSYCHIATRY [facility] Social History: Smoking Status (Most current) [...] 11, 2022 02:50 PM VA-TOBACCO NEVER USED [facility] Tobacco Use History This section includes a history of the smoking, or tobacco-related health factors, that were collected on or before the date of the Encounter. The data comes from the [place] facility where the Encounter took place. Date/Time Smoking Status/Tobacco Use Comment Barb gonzalez Dec 05, 2019 01:53 PM VA-TOBACCO NEVER USED [place] [facility] [place] [facility] May 26, 2016 02:32 PM LIFETIME NON-TOBACCO USER [place] [facility] [place] [facility] Encounter Notes: All associated encounter notes This section contains the clinical notes associated to the Encounter. Date/Time Encounter Note(s) Provider Source May 01, 2023 01:06 PM ADDENDUM: LOCAL TITLE: Addendum STANDARD TITLE: ADDENDUM DATE OF NOTE: MAY 01, 2023@13:06:39 ENTRY DATE: MAY 01, 2023@13:06:40 AUTHOR: ELI WASSERMAN COSIGNER: URGENCY: STATUS: COMPLETED Discussed case with Dr. Chambers- he advised that Lillian increase her seroquel by 25 mg at bedtime (125mg total)to help with her insomnia. She will do this when needed until Dr. Crawford retuns, and is made aware of her sleeping difficulties. She was pleased with this plan for now. /farhan/ ELI WASSERMAN Registered Nurse Signed: 05/01/2023 13:09 Receipt Acknowledged By: 05/07/2023 08:32 /farhan/ MINDA CRAWFORD MD STAFF PSYCHIATRIST --- Original Document --- 05/01/23 MENTAL HEALTH SECURE MESSAGING: ------Original Message Sent: 05/01/2023 05:42 AM ET From: LILLIAN KU To: ALESSANDRO,S_LICHAC% Subject: Medication:No sleep help pls Hi I have been in bed since 11 15pm and haven't slept yet. It is almost 6am. I took 4 seraquel. June I pls be prescribed a hypnotic in order to sleep for one or two nights. I need help pls. ------Original Message Sent: 05/01/2023 08:49 AM ET From: ELI WASSERMAN To: LILLIAN KU Subject: Medication:No sleep help pls Good morning- I am sorry that you had trouble sleeping last night. Was it only last night, or has this been an ongoing issue recently? Have you been taking the melatonin and trazodone as well? Dr. Crawford is on leave this week. If this was an isolated incident I would try the medications you already have available to you to help you sleep. If it continues to be an issue, I can ask for another provider to advise on what can be done with your medication to help you sleep. Thank you, Eli SAENZ /farhan/ ELI WASSERMAN Registered Nurse Signed: 05/01/2023 08:49 ELI WASSERMAN SETH May 01, 2023 07:49 AM MENTAL HEALTH SECU RE MESSAGING: LOCAL TITLE: MENTAL HEALTH SECURE MESSAGING STANDARD TITLE: MENTAL HEALTH SECURE MESSAGING DATE OF NOTE: MAY 01, 2023@07:49 ENTRY DATE: MAY 01, 2023@08:49:28 AUTHOR: ELI WASSERMAN EXP COSIGNER: URGENCY: STATUS: COMPLETED MENTAL HEALTH SECURE MESSAGING Has ADDENDA ------Original Message Sent: 05/01/2023 05:42 AM ET From: LILLIAN KU To: ENRIQUE_AIDAN,S_LICHAC% Subject: Medication:No sleep help pls Hi I have been in bed since 11 15pm and haven't slept yet. It is almost 6am. I took 4 seraquel. May I pls be prescribed a hypnotic in order to sleep for one or two nights. I need help pls. ------Original Message Sent: 05/01/2023 08:49 AM ET From: ELI WASSERMAN To: ATTILACAM ENGLISHLj Krishnamurthy Subject: Medication:No sleep help pls Good morning- I am sorry that you had trouble sleeping last night. Was it only last night, or has this been an ongoing issue recently? Have you been taking the melatonin and trazodone as well? Dr. Crawford is on leave this week. If this was an isolated incident I would try the medications you already have available to you to help you sleep. If it continues to be an issue, I can ask for another provider to advise on what can be done with your medication to help you sleep. Thank you, Eli SAENZ /farhan/ ELI WASSERMAN Registered Nurse Signed: 05/01/2023 08:49 05/01/2023 ADDENDUM STATUS: COMPLETED Discussed case with Dr. Chambers- he advised that Lillian increase her seroquel by 25 mg at bedtime (125mg total)to help with her insomnia. She will do this when needed until Dr. Crawford retuns, and is made aware of her sleeping difficulties. She was pleased with this plan for now. /farhan/ ELI WASSERMAN Registered Nurse Signed: 05/01/2023 13:09 Receipt Acknowledged By: * AWAITING SIGNATURE * MINDA CRAWFORD [place]
--- OUTSIDE RECORDS SUMMARY | 2024-03-10 09:10 | XMS_ITS ---
Author Name [facility] [place] Address [address] [place] [address] Care Team Providers Care Export Clerk Name Role Phone GARRETT GOOD Primary [...] Boykin's Name Patient's Relationship to Policy Boykin [facility] CE ORGANIZ HMO Oct 06, 2018 O [id number] [phone] MEREDITH KU NN PATIENT ANTHEM BCBS CT FEDERAL PREFERRED PROVIDER ORGANIZAT ION (PPO) BASIC FAMIL Y Jan 31, 2015 112 [id number] MEREDITH KU NN PATIENT ANTHEM BCBS OF CT (BLUECARD) HIGH DEDUCTIBL E HEALTH PLAN CLINI [facility]INE & SUP HDHP Oct 06, 2018 [id number] [phone] MEREDITH KU NN PATIENT BCBS [place] HIGH DEDUCTIBL E HEALTH PLAN CLINI [facility] AND [place]LA[place] HDHP Oct 06, 2018 [id number] [phone] MEREDITH KU NN PATIENT BC[place] OF [place] HIGH DEDUCTIBL E HEALTH PLAN CLINI CHRISTINE SUPP HDHP Oct 06, [id number] DEMEREDITH JORGE NN PATIENT [place]/[employer] [facility] CE ORGANIZ CLINI CHRISTINE AND SUPPO RT Oct 06, [id number] [phone] MEREDITH KU NN PATIENT BCBS OF [facility] PREFERRED PROVIDER ORGANIZAT ION (PPO) BASIC FAMIL Y Jan 31, 2015 [id number] DELUISITOLY NN PATIENT [place] FEPRX PLAN PRESCRIPT ION BCBS FEP Jan 31, 2015 [id number] MEREDITH KU NN PATIENT [place]-F EP BCBS PRESCRIPT ION BCBS FEP PLAN Jan 31, 2015 [id number] ELMIRALY NN PATIENT EXPRESS SCRIPTS PRESCRIPT ION HMO Oct 06, 2018 L4TA [id number] ELMIRALY NN PATIENT EXPRESS SCRIPTS PRESCRIPT ION CLINI [facility] AND SUPPO RT Sep 19, 2018 L4TA [id number] DELUISITOLY NN PATIENT EXPRESS SCRIPTS ([id number]) PRESCRIPT ION HDHP Oct 06, 2018 L4TA [id number] [phone] [id number] DELUISITOLY NN PATIENT EXPRESS SCRIPTS ([id number]) PRESCRIPT ION L4TA Oct 06, 2018 L4TA [id number] DEHNEHLY NN PATIENT EXPRESS SCRIPTS ([id number]) PRESCRIPT ION L4TA HDHP Oct 06, 2018 L4TA [id number] DELUISITOLY NN PATIENT EXPRESS SCRIPTS RX PRESCRIPT ION CLINI [facility]STINE AND SUPPO RT Oct 06, 2018 L4TA [id number] DEHNTAMEKA,LY NN PATIENT [id number] [facility] CE ORGANIZ CLINI CHRISTINE AND SUPPO RT Oct 06, [id number] DENEREYDATAMEKALY NN PATIENT [id number] [facility] CE ORGANIZ CLINI CHRISTINE AND SUPPO RT Oct 06, [id number] DEHNEH,LY NN PATIENT G210 BCBSM ([facility]INE AND SUPPO RT Oct 06, [id number] DEHNEH,LY NN PATIENT G210 BCBSM (PROFESSIO NAL) [facility] CE ORGANIZ CLINI CHRISTINE AND SUPPO RT Oct 06, [id number] DEHNEH,LY NN PATIENT MEDICARE (WNR) MEDICARE () PART A Nov 19, 2006 PART A [id number] DEHNEH,LY NN PATIENT MEDICARE (WNR) MEDICARE () PART A Nov 19, 2006 PART A [id number] [phone] DEHNEH,LY NN PATIENT MEDICARE (WNR) MEDICARE () PART A Nov 19, 2006 PART A [id number] DEHNEH,LY NN PATIENT MEDICARE (WN) MEDICARE ) PART B Nov 19, 2006 PART B [id number] DEHNEH,LY NN PATIENT MEDICARE (WNR) MEDICARE () PART A Nov 19, 2006 PART A [id number] DEHNEH,LY NN PATIENT MEDICARE (WNR) MEDICARE () PART A Nov 19, 2006 PART A [id number] DEHNEH,LY NN PATIENT MEDICARE (WNR) MEDICARE () PART A Nov 19, 2006 PART A [id number] DEHNEH,LY NN PATIENT MEDICARE (WNR) MEDICARE () PART A Nov 19, 2006 PART A [id number] DEHNEH,LY NN PATIENT MEDICARE (WNR) MEDICARE () PART B Nov 19, 2006 PART B [id number] DEHNEH,LY NN PATIENT Selected Encounter This section includes the information on [place] at [place] for the Encounter. Date/Time Encounter Type Encounter Description Reason Pro vider Source May 01, 2023 07:40 AM Outpatient Encounter [facility] Encounter Template Text not used by [facility] Plan of Treatment: Future Appointments (+ 6 months) and Future Tests (+/- 45 days) The Plan of Treatment section includes future care activities for the patient [facility] [place] [facility] This section includes future appointments and future orders which are active, pending or scheduled. Future Appointments This section includes appointments that were scheduled to occur 6 months from the date of the Encounter, up to a maximum of 20 appointments. The data comes from all [place] treatment facilities. Appointment Date/Time Appointment Type Appointme nt Facility Name May 11, 2023 03:45 PM AMBULATORY - NONE [place] [facility] [place] [facility] May 11, 2023 04:00 PM AMBULATORY - NONE [facility] [place] [facility] May 18, 2023 01:00 PM AMBULATORY - MEDICINE [facility] [place] [facility] May 24, 2023 09:30 AM AMBULATORY - REHAB MEDICIN E [facility] [place] [facility] Jun 06, 2023 02:00 PM AMBULATORY - MEDICINE [facility] June 22, 2023 01:30 PM AMBULATORY - MEDICINE [place] [facility] [place] [facility] July 05, 2023 03:00 PM AMBULATORY - PSYCHIATRY [facility] July 06, 2023 01:30 PM AMBULATORY - MEDICINE [place] [facility] [place] [facility] Aug 31, 2023 10:00 AM AMBULATORY - MEDICINE [place] [facility] [place] [facility] Sep 04, 2023 01:30 PM AMBULATORY - PSYCHIATRY [facility] Sep 11, 2023 03:00 PM AMBULATORY - MEDICINE [facility] Sep 13, 2023 08:00 AM AMBULATORY - MEDICINE [place] [facility] [place] [facility] Oct 29, 2023 04:00 PM AMBULATORY - PSYCHIATRY [facility] Social History: Smoking Status (Most current) and Tobacco Use (All prior to encounter date) This section includes the most current, and the historical, smoking and tobacco- related health factors from the [place] facility where the Encounter took place. Current Smoking Status This section includes the most current smoking, or tobacco-related health factor, from the [place] facility where the Encounter took place. Date/Time Current Smoking Status Comment Rory nicholas Aug 11, 2022 02:50 PM VA-TOBACCO NEVER USED [facility] Tobacco Use History This section includes a history of the smoking, or tobacco-related health factors, that were collected on or before the date of the Encounter. The data comes from the [place] facility where the Encounter took place. Date/Time Smoking Status/Tobacco Use Comment Barb gonzalez Dec 05, 2019 01:53 PM VA-TOBACCO NEVER USED [place] [facility] [place] [facility] May 26, 2016 02:32 PM LIFETIME NON-TOBACCO USER [facility] Encounter Notes: All associated encounter notes This section contains the clinical notes associated to the Encounter. Date/Time Encounter Note(s) Provider Source May 01, 2023 07:40 AM MENTAL HEALTH SECU RE MESSAGING: LOCAL TITLE: MENTAL HEALTH SECURE MESSAGING STANDARD TITLE: MENTAL HEALTH SECURE MESSAGING DATE OF NOTE: MAY 01, 2023@07:40 ENTRY DATE: MAY 01, 2023@08:40:20 AUTHOR: ELI WASSERMAN COSIGNER: URGENCY: STATUS: COMPLETED MENTAL HEALTH SECURE MESSAGING Has ADDENDA ------Original Message Sent: 04/30/2023 09:04 PM ET From: LILLIAN KU To: ENRIQUE_AIDAN,S_SOPC% Subject: Medication:Question about Referral Hellyndon Crawford, As per our conversation two sessions ago, where you suggested I reach out to , my PCP to ask for a referral to the [facility] clinic, I did indeed write to her on this platform on 2023. She has yet to respond. I wonder if you would be willing to check if Dr. Dumont is still employed at the [place]? It is very unlike her or her nurse to not respond. It has been 17 days. In addition, I signed an ASHLIE for my therapist Nguyen from the [facility] to discuss the possibility of attending the [facility] at [facility]. She may be reaching out to you tomorrow as I met with her this afternoon. I look forward to hearing from you. Thank you for all you do. Sincerely, Lillian Ku ------Original Message Sent: 05/01/2023 08:40 AM ET From: ELI WASSERMAN To: LILLIAN KU Subject: Medication:Question about Referral Good morning- Dr. Crawford is on leave this week, but I will forward him this message for when he returns. I am not sure about Dr. Dumont, I would try calling primary care, and ask for someone to return your call about your request. Thank you, Eli RN /farhan/ ELI WASSERMAN Registered Nurse Signed: 05/01/2023 08:40 Receipt Acknowledged By: 05/11/2023 17:36 /farhan/ MINDA CRAWFORD MD STAFF PSYCHIATRIST 05/11/2023 ADDENDUM STATUS: COMPLETED I called today in response to her secure message request to cancel PHP/IOP consult at [facility]. She stated that she was feeling much better, and was down to 3 quetiapine a day. I told her we are happy she is feeling better, and that I would add to the consult that she did not wish to proceed with the PHP/IOP at this time. I told her if she gets a call to schedule it, to please let them know she is not in need at this time. She agreed. She has follow up with provider 07/04, but knows she can contact us sooner if needed. /farhan/ ELI WASSERMAN Registered Nurse Signed: 05/11/2023 12:52 ELI WASSERMANFIELD
--- OUTSIDE RECORDS SUMMARY | 2024-03-10 09:10 | XMS_ITS ---
Author Name [facility] [place] Address [address] [place] [address] Care Team Providers Care Crate Tier Name Role Phone GARRETT GOOD Primary Care [...] Boykin's Name Patient's Relationship to Policy [facility] H[facility] Oct 06, 2018 HMO [id number] MEREDITH KU NN PATIENT ANTHEM BCBS CT FEDERAL PREFERRED PROVIDER ORGANIZAT ION (PPO) BASIC FAMIL Y Jan 31, 2015 [id number] MEREDITH KU NN PATIENT ANTHEM BCBS OF CT (BLUECARD) HIGH DEDUCTIBL E HEALTH PLAN CLINI [facility] & SUP HDHP Oct 06, 2018 [id number] MEREDITH KU NN PATIENT BCBS [place] HIGH DEDUCTIBL E HEALTH PLAN CLINI [facility] AND [place]LAKE HDHP Oct 06, 2018 [id number] MEREDITH [place] NN PATIENT BCBS OF [place] HIGH DEDUCTIBL E HEALTH PLAN CLINI CHRISTINE SUPP HDHP Oct 06, [id number] [phone] DELUISITOLY NN PATIENT BCBS OF [place]/Valneva [facility] CE ORGANIZ CLINI CHRISTINE AND SUPPO RT Oct 06, [id number] DEMEREDITH JORGE NN PATIENT BCBS OF [facility] PREFERRED PROVIDER ORGANIZAT ION (PPO) BASIC FAMIL Y Jan 31, 2015 [id number] DEHNTAMEKALY NN PATIENT [place] FEPRX PLAN PRESCRIPT ION BCBS FEP Jan 31, 2015 [id number] ELMIRALY NN PATIENT [place]-F EP BCBS PRESCRIPT ION BCBS FEP PLAN Jan 31, 2015 [id number] ELMIRALY NN PATIENT EXPRESS SCRIPTS PRESCRIPT ION HMO Oct 06, 2018 L4TA [id number] DELUISITOLY NN PATIENT EXPRESS SCRIPTS PRESCRIPT ION CLINI [facility] AND SUPPO RT Sep 19, 2018 L4TA [id number] DELUISITOLY NN PATIENT EXPRESS SCRIPTS ([id number]) PRESCRIPT ION HDHP Oct 06, 2018 L4TA [id number] DEHNEHLY NN PATIENT EXPRESS SCRIPTS ([id number]) PRESCRIPT ION L4TA Oct 06, 2018 L4TA [id number] DEHNEHLY NN PATIENT EXPRESS SCRIPTS ([id number]) PRESCRIPT ION L4TA HDHP Oct 06, 2018 L4TA [id number] DELUISITOLY NN PATIENT EXPRESS SCRIPTS RX PRESCRIPT ION CLINI [facility] AND SUPPO RT Oct 06, 2018 L4TA [id number] DEHNEH,LY NN PATIENT [id number] [facility] CE ORGANIZ CLINI CHRISTINE AND SUPPO RT Oct 06, [id number] DEHNTAMEKALY NN PATIENT [id number] [facility] CE ORGANIZ CLINI CHRISTINE AND SUPPO RT Oct 06, [id number] DEHNEH,LY NN PATIENT G210 BCBS ([facility] SUPPO RT Oct 06, 2018 [id number] DEHNEH,LY NN PATIENT G210 BCBS (PROFESSIO NAL) [facility] CE ORGANIZ CLINI CHRISTINE AND SUPPO RT Oct 06, [id number] DEHNEH,LY NN PATIENT MEDICARE (WNR) MEDICARE () PART A Nov 19, 2006 PART A [id number] DEHNEH,LY NN PATIENT MEDICARE (WNR) MEDICARE () PART A Nov 19, 2006 PART A [id number] DEHNEH,LY NN PATIENT MEDICARE (WNR) MEDICARE () PART A Nov 19, 2006 PART A [id number] DEHNEH,LY NN PATIENT MEDICARE (WNR) MEDICARE ) PART A Nov 19, 2006 PART A [id number] DEHNEH,LY NN PATIENT MEDICARE (WNR) MEDICARE () PART B Nov 19, 2006 PART B [id number] DEHNEH,LY NN PATIENT MEDICARE (WNR) MEDICARE () PART A Nov 19, 2006 PART A [id number] DEHNEH,LY NN PATIENT MEDICARE (WNR) MEDICARE () PART A Nov 19, 2006 PART A [id number] [phone] DEHNEH,LY NN PATIENT MEDICARE (WNR) MEDICARE () PART A Nov 19, 2006 PART A [id number] DEHNEH,LY NN PATIENT MEDICARE (WNR) MEDICARE () PART B Nov 19, 2006 PART B [id number] DEHNEH,LY NN PATIENT Selected Encounter This section includes the information on record at [place] for the Encounter. Date/Time Encounter Type Encounter Description Reason Provider Source May 01, 2023 03:01 PM Outpatient Encounter PRIMARY CARE/MEDICINE JOSE JUAN VELASQUEZ Encounter Template Text not used by VA Plan of Treatment: Future Appointments (+ 6 months) and Future Tests (+/- 45 days) The Plan of Treatment section includes future care activities for the patient from all [place] [facility]. This section includes future appointments and [...] 11, 2023 03:45 PM AMBULATORY - NONE [place] [facility] [place] [facility] May 11, 2023 04:00 PM AMBULATORY - NONE [place] [facility] [place] [facility] May 18, 2023 01:00 PM AMBULATORY - MEDICINE [place] [facility] [place] [facility] May 24, 2023 09:30 AM AMBULATORY - REHAB MEDICIN E [place] [facility] [place] [facility] Jun 06, 2023 02:00 PM AMBULATORY - MEDICINE [facility] June 22, 2023 01:30 PM AMBULATORY - MEDICINE [place] [facility] [place] [facility] July 05, 2023 03:00 PM AMBULATORY - PSYCHIATRY [facility] July 06, 2023 01:30 PM AMBULATORY - MEDICINE [place] [facility] [place] [facility] Aug 31, 2023 10:00 AM AMBULATORY - MEDICINE [place] [facility] [place] [facility] Sep 04, 2023 01:30 PM AMBULATORY - PSYCHIATRY [facility] Sep 11, 2023 03:00 PM AMBULATORY - MEDICINE [facility] Sep 13, 2023 08:00 AM AMBULATORY - MEDICINE [place] [facility] [place] [facility] Oct 29, 2023 04:00 PM AMBULATORY - PSYCHIATRY [facility] Social History: Smoking Status (Most [...] 11, 2022 02:50 PM VA-TOBACCO NEVER USED [facility] Tobacco Use History This section includes a history of the smoking, or tobacco-related health factors, that were collected on or before the date of the Encounter. The data comes from the [place] facility where the Encounter took place. Date/Time Smoking Status/Tobacco Use Comment Barb gonzalez Dec 05, 2019 01:53 PM VA-TOBACCO NEVER USED [place] [facility] [place] [facility] May 26, 2016 02:32 PM LIFETIME NON-TOBACCO USER [facility] Encounter Notes: All associated encounter notes This section contains the clinical notes associated to the Encounter. Date/Time Encounter Note(s) Provider Source May 11, 2023 11:51 AM PRIMARY CARE SECUR E MESSAGING: LOCAL TITLE: PRIMARY CARE SECURE MESSAGING STANDARD TITLE: PRIMARY CARE SECURE MESSAGING DATE OF NOTE: MAY 11, 2023@11:51 ENTRY DATE: MAY 11, 2023@12:51:36 AUTHOR: EDEL GOMEZ EXP COSIGNER: URGENCY: STATUS: COMPLETED ------Original Message -------- Sent: 05/10/2023 01:55 PM ET From: INDY KU To: ANISH JOHNSON KYL E, A_PRIMARY CARE_SPOPC Subject: General:General Inquiry [facility] there! I have an appointment with a pharmacist to discuss the GLP medication however I cannot remember the date and time. Would you please let me know? thank you ------Original Message -------- Sent: 05/11/2023 12:51 PM ET From: EDEL GOMEZ To: INDY KU Subject: General:General Inquiry May 17 at 1pm. Edel Gomez Registered Nurse /farhan/ EDEL GOMEZ RN REGISTERED NURSE Signed: 05/11/2023 12:51 [facility] [place] [facility] May 01, 2023 03:01 PM PRIMARY CARE SECUR E MESSAGING: LOCAL TITLE: PRIMARY CARE SECURE MESSAGING STANDARD TITLE: PRIMARY CARE SECURE MESSAGING DATE OF NOTE: MAY 01, 2023@15:01 ENTRY DATE: MAY 01, 2023@16:01:19 AUTHOR: JOSE JUAN VELASQUEZ EXP COSIGNER: URGENCY: STATUS: COMPLETED ------Original Message -------- Sent: 05/01/2023 04:01 PM ET From: JOSE JUAN VELASQUEZ To: INDY KU Subject: General:General Inquiry A clinical pharmacy referral has been placed to assist with diabetes and weight loss management. Please advise the . HERLINDA JOHNSON NP NURSE PRACTITIONER Signed: 05/01/2023 15:33 /farhan/ JOSE JUAN VELASQUEZ LPN LICENSED PRACTICAL NURSE Signed: 05/01/2023 16:01 JOSE JUAN VELASQUEZ [place] [facility]
--- OUTSIDE RECORDS SUMMARY | 2024-03-10 09:11 | XMS_ITS | Encounter Summary ---
Author Name [facility] [place] Address [address] [place] [address] Care Team Providers Care Dumper Name Role Phone GARRETT GOOD Primary Care [...] Boykin's Name Patient's Relationship to Policy Boykin [employer] CE ORGANIZ HMO Oct 06, 2018 HMO [id number] MEREDITH KU NN PATIENT ANTHEM BCBS CT FEDERAL PREFERRED PROVIDER ORGANIZAT ION (PPO) BASIC FAMIL Y Jan 31, 2015 [id number] MEREDITH KU NN PATIENT ANTHEM BCBS OF CT (BLUECARD) HIGH DEDUCTIBL E HEALTH PLAN CLINI [facility]INE & SUP HDHP Oct 06, 2018 [id number] [phone] MEREDITH KU NN PATIENT BCBS [place] HIGH DEDUCTIBL E HEALTH PLAN CLINI [facility] AND [place]LA[place] HDHP Oct 06, 2018 [id number] MEREDITH KU NN PATIENT [place] HIGH DEDUCTIBL E HEALTH PLAN CLINI CHRISTINE SUPP HDHP Oct 06, [id number] DELUISITOLY NN PATIENT BCBS OF [place]/Trendient [facility] CE ORGANIZ CLINI CHRISTINE AND SUPPO RT Oct 06, [id number] DEMEREDITH JORGE NN PATIENT BCBS OF [facility] PREFERRED PROVIDER ORGANIZAT ION (PPO) BASIC FAMIL Y Jan 31, 2015 [id number] DEHNTAMEKALY NN PATIENT [place] FEPRX PLAN PRESCRIPT ION BCBS FEP Jan 31, 2015 [id number] ELMIRALY NN PATIENT [place]-F EP BCBS PRESCRIPT ION BCBS FEP PLAN Jan 31, 2015 [id number] ELMIRALY NN PATIENT EXPRESS SCRIPTS PRESCRIPT ION HMO Oct 06, 2018 L4TA [id number] DELUISITOLY NN PATIENT EXPRESS SCRIPTS PRESCRIPT ION CLINI [facility] AND SUPPO RT Sep 19, 2018 L4TA [id number] DELUISITOLY NN PATIENT EXPRESS SCRIPTS ([id number]) PRESCRIPT ION HDHP Oct 06, 2018 L4TA [id number] DEHNEHLY NN PATIENT EXPRESS SCRIPTS ([id number]) PRESCRIPT ION L4TA Oct 06, 2018 L4TA [id number] DEHNEHLY NN PATIENT EXPRESS SCRIPTS ([id number]) PRESCRIPT ION L4TA HDHP Oct 06, 2018 L4TA [id number] DELUISITOLY NN PATIENT EXPRESS SCRIPTS RX PRESCRIPT ION CLINI [facility] AND SUPPO RT Oct 06, 2018 L4TA [id number] DEHNEH,LY NN PATIENT [id number] [facility] CE ORGANIZ CLINI CHRISTINE AND SUPPO RT Oct 06, [id number] DEHNTAMEKALY NN PATIENT [id number] [facility] CE ORGANIZ CLINI CHRISTINE AND SUPPO RT Oct 06, [id number] DEHNEH,LY NN PATIENT G210 BCBS ([facility] AND SUPPO RT Oct 06, 2018 [id number] DEHNEH,LY NN PATIENT G210 BCBS (PROFESSIO NAL) [facility] CE ORGANIZ CLINI CHRISTINE AND SUPPO RT Oct 06, [id number] DEHNEH,LY NN PATIENT MEDICARE (WNR) MEDICARE () PART A Nov 19, 2006 PART A [id number] DEHNEH,LY NN PATIENT MEDICARE (WNR) MEDICARE () PART A Nov 19, 2006 PART A [id number] [phone] DEHNEH,LY NN PATIENT MEDICARE (WNR) MEDICARE () PART A Nov 19, 2006 PART A [id number] [phone] DEHNEH,LY NN PATIENT MEDICARE (WNR) MEDICARE ) PART A Nov 19, 2006 PART A [id number] DEHNEH,LY NN PATIENT MEDICARE (WNR) MEDICARE () PART A Nov 19, 2006 PART A [id number] DEHNEH,LY NN PATIENT MEDICARE (WNR) MEDICARE () PART B Nov 19, 2006 PART B [id number] DEHNEH,LY NN PATIENT MEDICARE (WNR) MEDICARE () PART A Nov 19, 2006 PART A [id number] DEHNEH,LY NN PATIENT MEDICARE (WNR) MEDICARE () PART A Nov 19, 2006 PART A [id number] [phone] DEHNEH,LY NN PATIENT MEDICARE (WNR) MEDICARE () PART B Nov 19, 2006 PART B [id number] [phone] DEHNEH,LY NN PATIENT Selected Encounter This section includes the information on record at [place] for the Encounter. Date/Time Encounter Type Encounter Description Reason Provider Source May 11, 2023 11:52 AM Outpatient Encounter PRIMARY CARE/MEDICINE BOUBACAR GOMEZ Encounter Template Text not used by VA Plan of Treatment: Future Appointments (+ 6 months) and Future Tests (+/- 45 days) The Plan of Treatment section includes future care activities for the patient [facility] all [place] [facility]. This section includes future appointments and future orders which are active, pending or scheduled. Future Appointments This section includes appointments that were scheduled to occur 6 months from the date of the Encounter, up to a maximum of 20 appointments. The data comes from all [place] treatment facilities. Appointment Date/Time Appointment Type Appointme nt Facility Name May 18, 2023 01:00 PM AMBULATORY - MEDICINE [place] [facility] [place] [facility] May 24, 2023 09:30 AM AMBULATORY - REHAB MEDICIN E [place] [facility] [place] [facility] Jun 06, 2023 02:00 PM AMBULATORY - MEDICINE [facility] June 22, 2023 01:30 PM AMBULATORY - MEDICINE DE [facility] [place] [facility] July 05, 2023 03:00 PM AMBULATORY - PSYCHIATRY [facility] July 06, 2023 01:30 PM AMBULATORY - MEDICINE DE C [facility] [place] [facility] Aug 31, 2023 10:00 AM AMBULATORY - MEDICINE DE [facility] [place] [facility] Sep 04, 2023 01:30 PM AMBULATORY - PSYCHIATRY [facility] Sep 11, 2023 03:00 PM AMBULATORY - MEDICINE [facility] Sep 13, 2023 08:00 AM AMBULATORY - MEDICINE DE [facility] [place] [facility] Oct 29, 2023 04:00 PM AMBULATORY - PSYCHIATRY [facility] Nov 07, 2023 02:15 PM AMBULATORY - MEDICINE [facility] Nov 08, 2023 11:00 AM AMBULATORY - MEDICINE DE [facility] [place] [facility] Nov 09, 2023 01:30 PM AMBULATORY - MEDICINE [facility] Lab Results: +/- 30 days of the encounter This section includes the Chemistry and Hematology Lab Results on record with [place] for the patient. Radiology Reports and Pathology Reports are provided separately, in subsequent sections. Lab Results This section contains the Chemistry/Hematology Results that were resulted 30 days before or 30 daysafter the date of the Encounter. Date/Time Source Result Type Result - Unit Interpretation Reference Range Comment Jun 01, 2023 11:36 AM [facility] HEMOGLOBIN A1C PANEL Specimen Type: BLOOD Comment: Values obtained from A1C measurements can vary. For atypical A1C assays, a reported value of 7.0 could actually be between 6.72 and 7.28 if measured by a reference method. A reported value of 9.0 could actually be between 8.73 and 9.27. Ref: http://www.ngs p.org/CAPdata. asp Ordering Provider: JESSIE MOSS Report Released Date/Time: Dec 15, 2022 08:49 PM Reporting Lab: [address] [address] Performing Lab: [address] [address] HEMOGLOBIN A1C 6.1 H 4.0-5.6 Jun 01, 2023 11:36 AM [facility] LIVER FUNCTION Specimen Type: SERUM No comment entered. Ordering Provider: JESSIE MOSS Report Released Date/Time: Dec 15, 2022 08:49 PM Reporting Lab: [address] [address] Performing Lab: [address] [address] PROTEIN,TOTAL 6.6 g/dL 6.0-8.3 ALBUMIN 4.0 g/dL 3.5-5.0 ALKALINE PHOSPHATASE 62 U/L 40-150 AST 18 U/L 5-34 ALT 24 U/L BILIRUBIN, TOTAL 0.5 mg/dL 0.2-1.2 Jun 01, 2023 11:36 AM [facility] CBC Specimen Type: BLOOD No comment entered. Ordering Provider: JESSIE MOSS Report Released Date/Time: Dec 15, 2022 08:49 PM Reporting Lab: [address] [address] Performing Lab: [address] [address] WBC 4.19 10*3/uL L 4.50-11.00 RBC 4.32 10*6/uL 3.93-5.16 HGB 11.7 g/dL L 12-15.2 HCT 35.4 L 36.6-45.6 MCV 81.9 fL L 82-99 MCHC 33.1 g/dL 30.8-35.1 PLT 194 10*3/uL 140-360 RDW-CV 13.2 12.0-16.0 MCH 27.1 pg 26.2-32.6 Social History: Smoking Status (Most current) and Tobacco Use (All prior to encounter date) This section includes the most current, and the historical, smoking and tobacco- related health factors from the [place] facility where the Encounter took place. Current Smoking Status This section includes the most current smoking, or tobacco-related health factor, from the [place] facility where the Encounter took place. Date/Time Current Smoking Status Comment Facil ity Aug 11, 2022 02:50 PM VA-TOBACCO NEVER USED [place] [employer] [facility] Tobacco Use History This section includes a history of the smoking, or tobacco-related health factors, that were collected on or before the date of the Encounter. The data comes from the [place] facility where the Encounter took place. Date/Time Smoking Status/Tobacco Use Comment F acility Dec 05, 2019 01:53 PM VA-TOBACCO NEVER USED [place] [facility] [place] [facility] May 26, 2016 02:32 PM LIFETIME NON-TOBACCO USER [place] [employer] [email or web address] [place] [facility] Encounter Notes: All associated encounter notes This section contains the clinical notes associated to the Encounter. Date/Time Encounter Note(s) Provider Source May 11, 2023 11:52 AM PRIMARY CARE SECURE MESSAGING: [facility] TITLE: PRIMARY CARE SECURE MESSAGING STANDARD TITLE: PRIMARY CARE SECURE MESSAGING DATE OF NOTE: MAY 11, 2023@11:52 ENTRY DATE: MAY 11, 2023@12:52:52 AUTHOR: PEDRO GOMEZ EXP COSIGNER: URGENCY: STATUS: COMPLETED ------Original Message ----- Sent: 05/10/2023 01:59 PM ET From: LILLIAN KU To: ANISH JOHNSON KYLE, A _PRIMARY CARE_SPOPC Subject: Appointment:please disregard PHP referral Shari, After consulting with my therapist at the [facility], I have decided not to attend a partial hospitalization program at this time. Please delete this request. thank you Lillian Ku /farhan/ PEDRO GOMEZ RN REGISTERED NURSE Signed: 05/11/2023 12:52 Receipt Acknowledged By: 05/16/2023 13:24 /es/ Santiago Anthony Psy.D. THERAPY COORDINATOR, CLINICAL PSYCHOLOGIST [facility]
--- OUTSIDE RECORDS SUMMARY | 2024-03-10 09:11 | XMS_ITS | Encounter Summary ---
Author Name [facility] [place] Address [address] [place] [address] Care Team Providers Care Design Assistant Name Role Phone GARRETT GOOD Primary Care [...] Boykin's Name Patient's Relationship to Policy Boykin [facility] CE ORGANIZ HMO Oct 06, 2018 O [id number] MEREDITH KU NN PATIENT ANTHEM BCBS CT FEDERAL PREFERRED PROVIDER ORGANIZAT ION (PPO) BASIC FAMIL Y Jan 31, 2015 [id number] MEREDITH KU NN PATIENT ANTHEM BCBS OF CT (BLUECARD) HIGH DEDUCTIBL E [facility]ALTH PLAN [facility] HDHP Oct 06, 2018 [id number] MEREDITH KU NN PATIENT BCBS [place] HIGH DEDUCTIBL E HEALTH PLAN CLINI [facility] [place] HDHP Oct 06, 2018 [id number] MEREDITH KU NN PATIENT [place] HIGH DEDUCTIBL E HEALTH PLAN CLINI [facility] SUPP HDHP Oct 06, [id number] DELUISITOLY NN PATIENT BCBS OF [place]/[facility] CE ORGANIZ CLINI [facility] AND SUPPO RT Oct 06, [id number] DELUISITOLY NN PATIENT BCBS OF [facility] PREFERRED PROVIDER ORGANIZAT ION (PPO) BASIC FAMIL Y Jan 31, 2015 [id number] DELUISITOLY NN PATIENT [place] FEPRX PLAN PRESCRIPT ION BCBS FEP Jan 31, 2015 [id number] ELMIRALY NN PATIENT [place]ARK-F EP BCBS PRESCRIPT ION BCBS FEP PLAN Jan 31, 2015 [id number] ELMIRALY NN PATIENT EXPRESS SCRIPTS PRESCRIPT ION HMO Oct 06, 2018 L4TA [id number] DELUISITOLY NN PATIENT EXPRESS SCRIPTS PRESCRIPT ION CL[facility] RT Sep 19, 2018 L4TA [id number] DELUISITOLY NN PATIENT EXPRESS SCRIPTS ([id number]) PRESCRIPT ION [facility] Oct 06, 2018 L4TA [id number] DEHNEHLY NN PATIENT EXPRESS SCRIPTS ([id number]) PRESCRIPT ION L4TA Oct 06, 2018 L4TA [id number] DEHNEHLY NN PATIENT EXPRESS SCRIPTS ([id number]) PRESCRIPT ION L4TA HD Oct 06, 2018 L4TA [id number] DEHNTAMEKALY NN PATIENT EXPRESS SCRIPTS RX PRESCRIPT ION CL[facility]PP[facility] RT Oct 06, 2018 L4TA [id number] DEHNEH,LY NN PATIENT [id number] [facility] CE ORGANIZ CLINI [facility]INE AND SUPPO RT Oct 06, [id number] DELUISITOLY NN PATIENT [id number] [facility] CE ORGANIZ CLINI CH[facility]STINE AND SUPPO RT Oct 06, [id number] DEHNEH,LY NN PATIENT G210 BCBSM ([facility]) [facility] CE ORGANIZ CLINI [facility] AND SUPPO RT Oct 06, 2018 [id number] DEHNEH,LY NN PATIENT G210 BCBS ([facility] NAL) [facility] CL[facility] SUPPO RT Oct 06, [id number] DEHNEH,LY NN PATIENT MEDICARE (WNR) MEDICARE () PART A Nov 19, 2006 PART A [id number] DEHNEH,LY NN PATIENT MEDICARE (WNR) MEDICARE () PART A Nov 19, 2006 PART A [id number] DEHNEH,LY NN PATIENT MEDICARE (WNR) MEDICARE () PART A Nov 19, 2006 PART A [id number] DEHNEH,LY NN PATIENT MEDICARE (WN) MEDICARE ) PART B Nov 19, 2006 PART B [id number] DEHNEH,LY NN PATIENT MEDICARE (WNR) MEDICARE () PART A Nov 19, 2006 PART A [id number] DEHNEH,LY NN PATIENT MEDICARE (WNR) MEDICARE () PART A Nov 19, 2006 PART A [id number] DEHNEH,LY NN PATIENT MEDICARE (WNR) MEDICARE () PART A Nov 19, 2006 PART A [id number] DEHNEH,LY NN PATIENT MEDICARE (WNR) MEDICARE () PART A Nov 19, 2006 PART A [id number] DEHNEH,LY NN PATIENT MEDICARE (WNR) MEDICARE () PART B Nov 19, 2006 PART B [id number] [phone] DEHNEH,LY NN PATIENT Selected Encounter This section includes the information on record at [place] for the Encounter. Date/Time Encounter Type Encounter Description Reason Pro vider Source May 10, 2023 08:15 AM Outpatient Encounter DENTAL IHE Encounter Template Text not used by [facility] Plan of Treatment: Future Appointments (+ 6 months) and Future Tests (+/- 45 days) The Plan of Treatment section includes future care activities for the [facility] [place] [facility] This section includes future appointments and future [...] AMBULATORY - NONE [facility] [place] [facility] May 11, 2023 04:00 PM AMBULATORY - NONE [facility] [place] [facility] May 18, 2023 01:00 PM AMBULATORY - MEDICINE [facility] [place] [facility] May 24, 2023 09:30 AM AMBULATORY - REHAB MEDICIN E [facility] [place] [facility] Jun 06, 2023 02:00 PM AMBULATORY - MEDICINE [facility] June 22, 2023 01:30 PM AMBULATORY - MEDICINE [place] [facility] [place] [facility] July 05, 2023 03:00 PM AMBULATORY - PSYCHIATRY [facility] July 06, 2023 01:30 PM AMBULATORY - MEDICINE [place] [facility] [place] [facility] Aug 31, 2023 10:00 AM AMBULATORY - MEDICINE [place] [facility] [place] [facility] Sep 04, 2023 01:30 PM AMBULATORY - PSYCHIATRY [facility] Sep 11, 2023 03:00 PM AMBULATORY - MEDICINE [facility] Sep 13, 2023 08:00 AM AMBULATORY - MEDICINE [place] [facility] [place] [facility] Oct 29, 2023 04:00 PM AMBULATORY - PSYCHIATRY [facility] Nov 07, 2023 02:15 PM AMBULATORY - MEDICINE [facility] Nov 08, 2023 11:00 AM AMBULATORY - MEDICINE [place] [facility] [place] [facility] Nov 09, 2023 01:30 PM AMBULATORY - MEDICINE [facility] Lab Results: +/- 30 days of the encounter This section includes the Chemistry and Hematology Lab Results on record with [place] for the patient. Radiology Reports and Pathology Reports are provided separately, in subsequent sections. Lab Results This section contains the Chemistry/Hematology Results that were resulted 30 days before or 30 daysafter the date of the Encounter. Date/Time Source Result Type Result - Unit Interpretation Reference Range Comment Jun 01, 2023 11:36 AM [place] HEMOGLOBIN A1C PANEL Specimen Type: BLOOD Comment: [...] Dec 15, 2022 08:49 PM Reporting Lab: [address] [address] Performing Lab: [address] [address] HEMOGLOBIN A1C 6.1 H 4.0-5.6 Jun 01, 2023 11:36 AM [place] LIVER FUNCTION Specimen Type: SERUM No comment entered. Ordering Provider: JESSIE MOSS Report Released Date/Time: Dec 15, 2022 08:49 PM Reporting Lab: [address] [address] Performing Lab: [address] [address] PROTEIN,TOTAL 6.6 g/dL 6.0-8.3 ALBUMIN 4.0 g/dL 3.5-5.0 ALKALINE PHOSPHATASE 62 U/L 40-150 AST 18 U/L 5-34 ALT 24 U/L BILIRUBIN, TOTAL 0.5 mg/dL 0.2-1.2 Jun 01, 2023 11:36 AM [place] CBC Specimen Type: BLOOD No comment entered. Ordering Provider: JESSIE MOSS Report Released Date/Time: Dec 15, 2022 08:49 PM Reporting Lab: [address] [address] Performing Lab: [address] [address] WBC 4.19 10*3/uL L 4.50-11.00 RBC 4.32 [...] 11, 2022 02:50 PM VA-TOBACCO NEVER USED [facility] Tobacco Use History This section includes a history of the smoking, or tobacco-related health factors, that were collected on or before the date of the Encounter. The data comes from the [place] facility where the Encounter took place. Date/Time Smoking Status/Tobacco Use Comment F acility Dec 05, 2019 01:53 PM [facility]CO [facility] [place] [facility] May 26, 2016 02:32 PM LIFETIME NON-TOBACCO USER [facility] Encounter Notes: All associated encounter notes This section contains the clinical notes associated to the Encounter. Date/Time Encounter Note(s) Provider Source May 10, 2023 08:15 AM DENTISTRY TELEPHON E ENCOUNTER NOTE: LOCAL TITLE: TELEPHONE NOTE/DENTAL STANDARD TITLE: DENTISTRY TELEPHONE ENCOUNTER NOTE DATE OF NOTE: MAY 10, 2023@08:15 ENTRY DATE: MAY 10, 2023@08:15:29 AUTHOR: KEYLA CORNELL EXP COSIGNER: URGENCY: STATUS: COMPLETED Spoke with pt to confirm dental appointment on 05/11/2023 at 3:45 pm /farhan/ KEYLA CORNELL [employer] LIBRARIAN Signed: 05/10/2023 08:16 KEYLA CORNELL [facility]
--- OUTSIDE RECORDS SUMMARY | 2024-03-10 09:11 | XMS_ITS ---
Author Name [facility] [place] Address [address] [place] [address] Care Team Providers Care Washer Cutter Name Role Phone GARRETT GOOD Primary [...] Boykin's Name Patient's Relationship to Policy [facility]kin [facility] Oct 06, 2018 O [id number] MEREDITH KU NN PATIENT ANTHEM BCBS CT FEDERAL PREFERRED PROVIDER ORGANIZAT ION (PPO) BASIC FAMIL Y Jan 31, 2015 [id number] MEREDITH KU NN PATIENT ANTHEM BCBS OF CT (BLUECARD) HIGH DEDUCTIBL E HEALTH PLAN CLINI [facility]P HDHP Oct 06, 2018 [id number] MEREDITH KU NN PATIENT BCBS [place] HIGH DEDUCTIBL E HEALTH PLAN CLINI [facility] [place] HDHP Oct 06, 2018 [id number] MEREDITH KU NN PATIENT [place] HIGH DEDUCTIBL E HEALTH PLAN CLINI [facility]INE SUPP HDHP Oct 06, 2018 [id number] DELUISITOLY NN PATIENT BCBS OF [place]/[employer] [facility] CE ORGANIZ CLINI CHRISTINE AND SUPPO RT Oct 06, [id number] DEMEREDITH JORGE NN PATIENT BCBS OF [facility] PREFERRED PROVIDER ORGANIZAT ION (PPO) BASIC FAMIL Y Jan 31, 2015 [id number] DEHNEHLY NN PATIENT [place] FEPRX PLAN PRESCRIPT ION BCBS FEP Jan 31, 2015 [id number] ELMIRALY NN PATIENT [place]-F EP BCBS PRESCRIPT ION BCBS FEP PLAN Jan 31, 2015 [id number] ELMIRALY NN PATIENT EXPRESS SCRIPTS PRESCRIPT ION HMO Oct 06, 2018 L4TA [id number] DELUISITOLY NN PATIENT EXPRESS SCRIPTS PRESCRIPT ION [facility] RT Sep 19, 2018 L4TA [id number] DELUISITOLY NN PATIENT EXPRESS SCRIPTS ([id number]) PRESCRIPT ION HDHP Oct 06, 2018 L4TA [id number] DEHNEHLY NN PATIENT EXPRESS SCRIPTS ([id number]) PRESCRIPT ION L4TA Oct 06, 2018 L4TA [id number] DEHNEHLY NN PATIENT EXPRESS SCRIPTS ([id number]) PRESCRIPT ION L4TA HDHP Oct 06, 2018 L4TA [id number] DELUISITOLY NN PATIENT EXPRESS SCRIPTS RX PRESCRIPT ION CL[facility]O RT Oct 06, 2018 L4TA [id number] DEHNEH,LY NN PATIENT [id number] [facility] CE ORGANIZ CLINI CHRISTINE AND SUPPO RT Oct 06, [id number] DEHNTAMEKALY NN PATIENT [id number] [facility] CE ORGANIZ CLINI CHRISTINE AND SUPPO RT Oct 06, [id number] DEHNEH,LY NN PATIENT G210 BCBS ([facility]) [facility] CE ORGANIZ CLINI CHRISTINE AND SUPPO RT Oct 06, [id number] DEHNEH,LY NN PATIENT G210 BCBSM (PROFESSIO NAL) [facility] CE ORGANIZ CLINI [facility]STINE AND SUPPO RT Oct 06, [id number] DEHNEH,LY NN PATIENT MEDICARE (WN) MEDICARE ) PART A Nov 19, 2006 PART A [id number] DEHNEH,LY NN PATIENT MEDICARE (WN) MEDICARE ) PART A Nov 19, 2006 PART A [id number] DEHNEH,LY NN PATIENT MEDICARE ([facility]) MEDICARE ) PART A Nov 19, 2006 PART A [id number] DEHNEH,LY NN PATIENT MEDICARE ([facility]) MEDICARE (M) PART B Nov 19, 2006 PART B [id number] DEHNEH,LY NN PATIENT MEDICARE (WN) MEDICARE ) PART A Nov 19, 2006 PART A [id number] DEHNEH,LY NN PATIENT MEDICARE (WN) MEDICARE ) PART A Nov 19, 2006 PART A [id number] [phone] DEHNEH,LY NN PATIENT MEDICARE ([facility]) MEDICARE ) PART A Nov 19, 2006 PART A [id number] DEHNEH,LY NN PATIENT MEDICARE (WN) MEDICARE ) PART A Nov 19, 2006 PART A [id number] [phone] DEHNEH,LY NN PATIENT MEDICARE (WN) MEDICARE ) PART B Nov 19, 2006 PART B [id number] DEHNEH,LY NN PATIENT Selected Encounter This section includes the information on record at [place] for the Encounter. Date/Time Encounter Type Encounter Description Reason Provider Source May 11, 2023 03:45 PM CASE MGMT-ORAL HEALTH LIT DENTAL ICD-10-CM K03.6 Deposits [accretions] on teeth ATTILA,ANA CRISTINA Lopez IHE Encounter Template Text not used by [place] Assessments - Encounter Diagnoses This section includes the primary and secondary diagnoses documented for the Encounter. Date/Time Primary/Secondary Diagnosis Diagnosis Name Provider Source May 11, 2023 04:29 PM PRIMARY Deposits [accretions] on teeth ANA CRISTINA AIKEN [place] [facility] [place] [facility] Plan of Treatment: Future Appointments (+ 6 months) and Future Tests (+/- 45 days) The Plan of Treatment section includes future care activities for the patient from all [place] treatmentfacilities. This section includes future appointments and future orders which are active, pending or scheduled. Future Appointments This section includes appointments that were scheduled to occur 6 months from the date of the Encounter, up to a maximum of 20 appointments. The data comes from all [place] treatment facilities. Appointment Date/Time Appointment Type Appointme nt Facility Name May 18, 2023 01:00 PM AMBULATORY - MEDICINE [place] [facility] [place] [facility] May 24, 2023 09:30 AM AMBULATORY - REHAB MEDICIN E [place] [facility] [place] [facility] Jun 06, 2023 02:00 PM [facility]ATORY - MEDICINE [facility] June 22, 2023 01:30 PM AMBULATORY - MEDICINE [place] [facility] [place] [facility] July 05, 2023 03:00 PM AMBULATORY - PSYCHIATRY [facility] July 06, 2023 01:30 PM AMBULATORY - MEDICINE [place] [facility] [place] [facility] Aug 31, 2023 10:00 AM AMBULATORY - MEDICINE [place] [facility] [place] [facility] Sep 04, 2023 01:30 PM AMBULATORY - PSYCHIATRY [facility] Sep 11, 2023 03:00 PM [facility] Sep 13, 2023 08:00 AM AMBULATORY - MEDICINE [place] [facility] [place] [facility] Oct 29, 2023 04:00 PM AMBULATORY - PSYCHIATRY [facility] Nov 07, 2023 02:15 PM AMBULATORY - MEDICINE [facility] Nov 08, 2023 11:00 AM AMBULATORY - MEDICINE [place] [facility] [place] [facility] Nov 09, 2023 01:30 PM AMBULATORY - MEDICINE [facility] Lab Results: +/- 30 days of the encounter This section includes the Chemistry and Hematology Lab Results on record with [place] for the patient. Radiology Reports and Pathology Reports are provided separately, in subsequent sections. Lab Results This section contains the Chemistry/Hematology Results that were resulted 30 days before or 30 daysafter the date of the Encounter. Date/Time Source Result Type Result - Unit Interpretation Reference Range Comment Jun 01, 2023 11:36 AM [facility] HEMOGLOBIN A1C PANEL Specimen Type: BLOOD Comment: [...] Dec 15, 2022 08:49 PM Reporting Lab: [address] [address] Performing Lab: [address] [address] HEMOGLOBIN A1C 6.1 H 4.0-5.6 Jun 01, 2023 11:36 AM [facility] LIVER FUNCTION Specimen Type: SERUM No comment entered. Ordering Provider: JESSIE MOSS Report Released Date/Time: Dec 15, 2022 08:49 PM Reporting Lab: [address] [address] Performing Lab: [address] [address] PROTEIN,TOTAL 6.6 g/dL 6.0-8.3 ALBUMIN 4.0 g/dL 3.5-5.0 ALKALINE PHOSPHATASE 62 U/L 40-150 AST 18 U/L 5-34 ALT 24 U/L BILIRUBIN, TOTAL 0.5 mg/dL 0.2-1.2 Jun 01, 2023 11:36 AM [facility] CBC Specimen Type: BLOOD No comment entered. Ordering Provider: JESSIE OMSS Report Released Date/Time: Dec 15, 2022 08:49 PM Reporting Lab: [address] [address] Performing Lab: [address] [place] [address] WBC 4.19 10*3/uL L 4.50-11.00 RBC 4.32 [...] and tobacco- related health factors from the [place] facility where the Encounter took place. Current Smoking Status This section includes the most current smoking, or tobacco-related health factor, from the [place] facility where the Encounter took place. Date/Time Current Smoking Status Comment Rory nicholas Aug 11, 2022 02:50 PM VA-TOBACCO NEVER USED [facility] Tobacco Use History This section includes a history of the smoking, or tobacco-related health factors, that were collected on or before the date of the Encounter. The data comes from the [place] facility where the Encounter took place. Date/Time Smoking Status/Tobacco Use Comment F acayaz Dec 05, 2019 01:53 PM VA-TOBACCO NEVER USED [facility] May 26, 2016 02:32 PM LIFETIME NON-TOBACCO USER [facility] Encounter Notes: All associated encounter notes This section contains the clinical notes associated to the Encounter. Date/Time Encounter Note(s) Provider Source May 11, 2023 04:29 PM DENTISTRY NOTE: LOCAL TITLE: DENTAL NOTE STANDARD TITLE: DENTISTRY NOTE DATE OF NOTE: MAY 11, 2023@16:29 ENTRY DATE: MAY 11, 2023@16:29:29 AUTHOR: ANA CRISTINA AIKEN COSIGNER: URGENCY: STATUS: COMPLETED Patient Name: INDY KU, : 1965, Age: 58 Visit: S: May 11, 2023@15:45 CWM/NO/DENTAL/RDH1 PM. Primary PCE Diagnosis: K03.6 (Deposits [accretions] on teeth). Dental Category: 15-OPC, Class IV. Treatment Status: Maintenance. Completed Care: (D1110) DENTAL PROPHYLAXIS ADULT. DX: K03.6 Deposits [Accretions] on Teeth (D1330) ORAL HYGIENE INSTRUCTION. DX: K03.6 Deposits [Accretions] on Teeth (D9994) CASE MGMT-ORAL HEALTH LIT. DX: K03.6 Deposits [Accretions] on Teeth Periodontal Screening/Recording (PSR): 2-2-2 - - - 2-2-2 Dental Alerts: She had a knee rpelacement in Mar 2022 and said she only had to premed once. Oral Health Assessment Findings: Plaque Index: 1 - Slight Xerostomia: 0 - None Caries Risk: 2 - Moderate Oral Hygiene: 2 - Fair - - - - - - - - - - - - - - - - - - - - - - - - - - - - - - TIME OUT/Safety goals were verified immediately prior to the procedure. (Correct patient, procedure, site, position) Full name and date used. STERILIZATION MONITOR IN INSTRUMENT PACK CHECKED AND CONFIRMED CC: no concerns PREMEDICATION: Not indicated PAST MEDICAL HISTORY: Reviewed, no contraindications for treatment. LAST RADIOGRAPHS: FMX & PANO: 12/14/21 NEW RADIOGRAPHS: BWX SOFT TISSUE SCREENING: no abnormalities noted EXAMINATION:by Dr. Grijalva ORAL HYGIENE ASSESSMENT: generalized light plaque interproximal and light food debris generalized light stain PERIODONTAL ASSESSMENT: localized light calculus generalized light inflammation generalized light bleeding probing depth no changes generalized recession REVIEWED ORAL HEALTH REPORT: CARIES RISK: low GUM DISEASE: n/a ORAL CANCER RISK: n/a DENTAL TREATMENT PROVIDED: PROPHYLAXIS - hand scaling, piezo, slovak, floss Patient refused [place] Varnish PRE-RINSE WITH CREST RINSE ORAL HYGIENE INSTRUCTIONS GIVEN TO PATIENT: Patient brushes once a day with a manual toothbrush. Discussed brushing 2 times a day for 2 minutes each and flossing daily. Discussed angling bristles into gumlines to remove plaque and bacteria. DISPOSITION: 6 MONTHS RECARE NEXT VISIT: ted /farhan/ ANA CRISTINA AIKEN [facility], DENTAL SERVICE Signed: 05/11/2023 16:29 ANA CRISTINA AIKEN [facility]
--- OUTSIDE RECORDS SUMMARY | 2024-03-10 09:11 | XMS_ITS | Encounter Summary ---
Author Name [facility] [place] Address [address] [place] [address] Care Team Providers Care Shorts Sifter Name Role Phone GARRETT GOOD Primary Care [...] Boykin's Name Patient's Relationship to Policy Boykin [facility] Oct 06, 2018 HMO [id number] MEREDITH KU NN PATIENT ANTHEM BCBS CT FEDERAL PREFERRED PROVIDER ORGANIZAT ION (PPO) BASIC FAMIL Y Jan 31, 2015 [id number] MEREDITH KU NN PATIENT ANTHEM BCBS OF CT (BLUECARD) HIGH DEDUCTIBL E HEALTH PLAN CLINI [facility] & SUP HDHP Oct 06, 2018 [id number] MEREDITH KU NN PATIENT BCBS [place] HIGH DEDUCTIBL E HEALTH PLAN CLINI [facility]INE AND BLAKE HDHP Oct 06, 2018 [id number] MEREDITH KU NN PATIENT BCBS OF [place] HIGH DEDUCTIBL E HEALTH PLAN CLINI CHRISTINE SUPP HDHP Oct 06, [id number] [phone] DELUISITOLY NN PATIENT BCBS OF [place]/[employer] [facility] CE ORGANIZ CLINI CHRISTINE AND SUPPO RT Oct 06, [id number] [phone] DEMEREDITH JORGE NN PATIENT BCBS OF [facility] PREFERRED PROVIDER ORGANIZAT ION (PPO) BASIC FAMIL Y Jan 31, 2015 [id number] DEHNTAMEKALY NN PATIENT [place] FEPRX PLAN PRESCRIPT ION BCBS FEP Jan 31, 2015 [id number] ELMIRALY NN PATIENT CAREMARK-F EP BCBS PRESCRIPT ION BCBS FEP PLAN Jan 31, 2015 [id number] ELMIRALY NN PATIENT EXPRESS SCRIPTS PRESCRIPT ION HMO Oct 06, 2018 L4TA [id number] DELUISITOLY NN PATIENT EXPRESS SCRIPTS PRESCRIPT ION CLINI [facility] AND SUPPO RT Sep 19, 2018 L4TA [id number] DELUISITOLY NN PATIENT EXPRESS SCRIPTS ([id number]) PRESCRIPT ION HDHP Oct 06, 2018 L4TA [id number] DEHNEHLY NN PATIENT EXPRESS SCRIPTS ([id number]) PRESCRIPT ION L4TA Oct 06, 2018 L4TA [id number] DEHNEHLY NN PATIENT EXPRESS SCRIPTS ([id number]) PRESCRIPT ION L4TA HDHP Oct 06, 2018 L4TA [id number] DELUISITOLY NN PATIENT EXPRESS SCRIPTS RX PRESCRIPT ION CLINI [facility] AND SUPPO RT Oct 06, 2018 L4TA [id number] DEHNEH,LY NN PATIENT [id number] [facility]GANIZ CL[facility] AND SUPPO RT Oct 06, [id number] DEHNTAMEKALY NN PATIENT [id number] [facility] CE ORGANIZ CLINI CHRISTINE AND SUPPO RT Oct 06, [id number] [id number] DEHNEH,LY NN PATIENT G210 BCBSM [facility] SUPPO RT Oct 06, 2018 [id number] DEHNEH,LY NN PATIENT G210 BCBS (PROFESSIO NAL) [facility] CE ORGANIZ CLINI CHRISTINE AND SUPPO RT Oct 06, [id number] DEHNEH,LY NN PATIENT MEDICARE (WNR) MEDICARE ) PART A Nov 19, 2006 PART A [id number] DEHNEH,LY NN PATIENT MEDICARE (WNR) MEDICARE () PART A Nov 19, 2006 PART A [id number] DEHNEH,LY NN PATIENT MEDICARE (WNR) MEDICARE () PART A Nov 19, 2006 PART A [id number] DEHNEH,LY NN PATIENT MEDICARE (WN) MEDICARE ) PART B Nov 19, 2006 PART B [id number] DEHNEH,LY NN PATIENT MEDICARE (WNR) MEDICARE () PART A Nov 19, 2006 PART A [id number] DEHNEH,LY NN PATIENT MEDICARE (WNR) MEDICARE () PART A Nov 19, 2006 PART A [id number] DEHNEH,LY NN PATIENT MEDICARE (WNR) MEDICARE ) PART A Nov 19, 2006 PART A [id number] DEHNEH,LY NN PATIENT MEDICARE (WNR) MEDICARE () PART A Nov 19, 2006 PART A [id number] DEHNEH,LY NN PATIENT MEDICARE (WNR) MEDICARE () PART B Nov 19, 2006 PART B [id number] [phone] DEHNEH,LY NN PATIENT Selected Encounter This section includes the information on record at NH for the Encounter. Date/Time Encounter Type Encounter Description Reason Pro vider Source May 02, 2023 09:29 AM Outpatient Encounter PRIMARY CARE/MEDICINE IHE Encounter Template Text not used by [place] Plan of Treatment: Future Appointments (+ 6 months) and Future Tests (+/- 45 days) The Plan of Treatment section includes future care activities for the [facility] This section includes future appointments and future orders which are active, pending or scheduled. Future Appointments This section includes appointments that were scheduled to occur 6 months from the date of the Encounter, up to a maximum of 20 appointments. The data comes from all [place] treatment facilities. Appointment Date/Time Appointment Type Appointme nt Facility Name May 11, 2023 03:45 PM AMBULATORY - NONE [facility] [place] [facility] May 11, 2023 04:00 PM AMBULATORY - NONE [facility] [place] [facility] May 18, 2023 01:00 PM AMBULATORY - MEDICINE [facility] [place] [facility] May 24, 2023 09:30 AM AMBULATORY - REHAB MEDICIN E [facility] [place] [facility] Jun 06, 2023 02:00 PM AMBULATORY - MEDICINE [facility] June 22, 2023 01:30 PM AMBULATORY - MEDICINE [facility] [place] [facility] July 05, 2023 03:00 PM AMBULATORY - PSYCHIATRY [facility] July 06, 2023 01:30 PM AMBULATORY - MEDICINE [facility] [place] [facility] Aug 31, 2023 10:00 AM AMBULATORY - MEDICINE [facility] [place] [facility] Sep 04, 2023 01:30 PM AMBULATORY - PSYCHIATRY [facility] Sep 11, 2023 03:00 PM AMBULATORY - MEDICINE [facility] Sep 13, 2023 08:00 AM AMBULATORY - MEDICINE [facility] [place] [facility] Oct 29, 2023 04:00 PM AMBULATORY - PSYCHIATRY [facility] Lab Results: +/- 30 days of the encounter This section includes the Chemistry and Hematology Lab Results on record with NH for the patient. Radiology Reports and Pathology Reports are provided separately, in subsequent sections. Lab Results This section contains the Chemistry/Hematology Results that were resulted 30 days before or 30 daysafter the date of the Encounter. Date/Time Source Result Type Result - Unit Interpretation Reference Range Comment Jun 01, 2023 11:36 AM [facility] HEMOGLOBIN A1C PANEL Specimen Type: BLOOD Comment: [...] Dec 15, 2022 08:49 PM Reporting Lab: [address] [address] Performing Lab: [address] [address] HEMOGLOBIN A1C 6.1 H 4.0-5.6 Jun 01, 2023 11:36 AM [facility] LIVER FUNCTION Specimen Type: SERUM No comment entered. Ordering Provider: JESSIE MOSS Report Released Date/Time: Dec 15, 2022 08:49 PM Reporting Lab: [address] [address] Performing Lab: [address] [phone] PROTEIN,TOTAL 6.6 g/dL 6.0-8.3 ALBUMIN 4.0 g/dL 3.5-5.0 ALKALINE PHOSPHATASE 62 U/L 40-150 AST 18 U/L 5-34 ALT 24 U/L BILIRUBIN, TOTAL 0.5 mg/dL 0.2-1.2 Jun 01, 2023 11:36 AM [facility] CBC Specimen Type: BLOOD No comment entered. Ordering Provider: JESSIE MOSS Report Released Date/Time: Dec 15, 2022 08:49 PM Reporting Lab: [address] [address] Performing Lab: [address] [address] WBC 4.19 10*3/uL L 4.50-11.00 RBC 4.32 [...] and tobacco- related health factors from the [place] facility where the Encounter took place. Current Smoking Status This section includes the most current smoking, or tobacco-related health factor, from the [place] facility where the Encounter took place. Date/Time Current Smoking Status Comment Facil ity Aug 11, 2022 02:50 PM VA-TOBACCO NEVER USED [facility] Tobacco Use History This section includes a history of the smoking, or tobacco-related health factors, that were collected on or before the date of the Encounter. The data comes from the [place] facility where the Encounter took place. Date/Time Smoking Status/Tobacco Use Comment F acility Dec 05, 2019 01:53 PM VA-TOBACCO NEVER USED [facility] May 26, 2016 02:32 PM LIFETIME NON-TOBACCO USER [facility] Encounter Notes: All associated encounter notes This section contains the clinical notes associated to the Encounter. Date/Time Encounter Note(s) Provider Source May 02, 2023 09:31 AM LETTERS: LOCAL TITLE: PATIENT LETTER (B) STANDARD TITLE: LETTERS DATE OF NOTE: MAY 02, 2023@09:31 ENTRY DATE: MAY 02, 2023@09:31:35 AUTHOR: BLAINE CLAIRE EXP COSIGNER: URGENCY: STATUS: [place] [address] [phone] * INDY KU [address] [place] [id number] Date: MAY 02, 2023 Dear Blaine: Thank you for choosing [facility] as your primary choice for health care. As a partner in your health care, we are attempting to contact you because we have been unsuccessful in reaching you by phone. WE ARE ATTEMPTING TO SCHEDULE AND APPOINTMENT WITH OUR Clinical Pharmacist JEFFREY MULLINS FOR Diabetes management. We want to assure you that we are doing everything possible to schedule veterans for their appointments. Please call us at to speak with a staff member who can assist you with securing an appointment. Thank you for your service and we look forward to hearing from you soon. Sincerely; [facility] [address] [place] [phone] Upcoming Appointments: 05/10/2023 13:00 CWM/NO/PHYSICAL THERAPY A 05/11/2023 15:45 CWM/NO/DENTAL/RDH1 PM 06/15/2023 14:30 CWM/SO/PACT 4 07/05/2023 15:00 CWM/SO/VVC/MHC/BERMUDEZ 01/29/2024 10:30 NHM/OPT/VISUAL IMAGING 01/29/2024 11:00 CWM/NO/OPTOMETRY/BLAINE TINAJERO [facility] May 02, 2023 09:29 AM PRIMARY CARE TELEP GLORIA ENCOUNTER NOTE: LOCAL TITLE: TELEPHONE NOTE/PRIMARY CARE STANDARD TITLE: PRIMARY CARE TELEPHONE ENCOUNTER NOTE DATE OF NOTE: MAY 02, 2023@09:29 ENTRY DATE: MAY 02, 2023@09:29:55 AUTHOR: BLAINE CLAIRE EXP COSIGNER: URGENCY: STATUS: COMPLETED [employer] Manager called to [X} schedule primary care appt [ ] reschedule primary care appt [ ] schedule COVID vaccine appt [ ] reschedule COVID vaccine appt [ ] Scheduled appt [X} Unable to schedule appt SPOKE WITH: SCHEDULED APPT - TYPE: APPT SCHEDULED ON AT [ ] [facility] APPT SCHEDULED ON AT [ ] NON [facility] APPT SCHED ON AT [X} UNABLE TO REACH : [X} Left voicemail with direct callback number [X} Mailed Letter OTHER: TRYING TO BOOK w/ JEFFREY MULLINS = /farhan/ 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
--- OUTSIDE RECORDS SUMMARY | 2024-03-10 09:11 | XMS_ITS | Encounter Summary ---
Author Name [place] Address [address] [place] [address] Care Team Providers Care Coding Educator Name Role Phone GARRETT GOOD Primary Care [...] Boykin's Name Patient's Relationship to Policy Boykin [facility] Oct 06, 2018 HMO [id number] [phone] MEREDITH KU NN PATIENT ANTHEM BCBS CT FEDERAL PREFERRED PROVIDER ORGANIZAT ION (PPO) BASIC FAMIL Y Jan 31, 2015 [id number] MEREDITH KU NN PATIENT ANTHEM BCBS OF CT (BLUECARD) HIGH DEDUCTIBL E HEALTH PLAN CLINI [facility]RISTINE & SUP HDHP Oct 06, 2018 [id number] MEREDITH KU NN PATIENT BCBS [place] HIGH DEDUCTIBL E HEALTH PLAN CLINI [facility]STINE AND [place]LAKE HDHP Oct 06, 2018 [id number] MEREDITH KU NN PATIENT BCBS OF [place] HIGH DEDUCTIBL E HEALTH PLAN CLINI CHRISTINE SUPP HDHP Oct 06, [id number] DELUISITOLY NN PATIENT BCBS OF [place]/[employer] [facility] CE ORGANIZ CLINI CHRISTINE AND SUPPO RT Oct 06, [id number] [phone] DEMEREDITH JORGE NN PATIENT BCBS OF [facility] PREFERRED PROVIDER ORGANIZAT ION (PPO) BASIC FAMIL Y Jan 31, 2015 [id number] [phone] DEHNTAMEKALY NN PATIENT [place] FEPRX PLAN PRESCRIPT ION BCBS FEP Jan 31, 2015 [id number] ELMIRALY NN PATIENT [place]-F EP BCBS PRESCRIPT ION BCBS FEP PLAN Jan 31, 2015 [id number] ELMIRALY NN PATIENT EXPRESS SCRIPTS PRESCRIPT ION HMO Oct 06, 2018 L4TA [id number] DELUISITOLY NN PATIENT EXPRESS SCRIPTS PRESCRIPT ION CLINI [facility]RISTINE AND SUPPO RT Sep 19, 2018 L4TA [id number] DELUISITOLY NN PATIENT EXPRESS SCRIPTS ([id number]) PRESCRIPT ION HDHP Oct 06, 2018 L4TA [id number] DEHNEHLY NN PATIENT EXPRESS SCRIPTS ([id number]) PRESCRIPT ION L4TA Oct 06, 2018 L4TA [id number] DEHNEHLY NN PATIENT EXPRESS SCRIPTS ([id number]) PRESCRIPT ION L4TA HDHP Oct 06, 2018 L4TA [id number] DELUISITOLY NN PATIENT EXPRESS SCRIPTS RX PRESCRIPT ION CLINI CHRISTINE AND SUPPO RT Oct 06, 2018 L4TA [id number] DEHNEH,LY NN PATIENT [id number] [facility] CE ORGANIZ CLINI CHRISTINE AND SUPPO RT Oct 06, [id number] DEHNTAMEKALY NN PATIENT [id number] [facility] CE ORGANIZ CLINI CHRISTINE AND SUPPO RT Oct 06, [id number] DEHNEH,LY NN PATIENT G210 BCBSM ([facility]) [facility] CE ORGANIZ CLINI CHRISTINE AND SUPPO RT Oct 06, 2018 [id number] DEHNEH,LY NN PATIENT G210 BCBS (PROFESSIO NAL) [facility] CE ORGANIZ CLINI CHRISTINE AND SUPPO RT Oct 06, [id number] DEHNEH,LY NN PATIENT MEDICARE (WNR) MEDICARE () PART A Nov 19, 2006 PART A [id number] DEHNEH,LY NN PATIENT MEDICARE (WNR) MEDICARE () PART A Nov 19, 2006 PART A [id number] DEHNEH,LY NN PATIENT MEDICARE (WNR) MEDICARE () PART A Nov 19, 2006 PART A [id number] DEHNEH,LY NN PATIENT MEDICARE (WNR) MEDICARE () PART A Nov 19, 2006 PART A [id number] DEHNEH,LY NN PATIENT MEDICARE (WNR) MEDICARE () PART B Nov 19, 2006 PART B [id number] DEHNEH,LY NN PATIENT MEDICARE (WNR) MEDICARE () PART A Nov 19, 2006 PART A [id number] DEHNEH,LY NN PATIENT MEDICARE (WNR) MEDICARE () PART A Nov 19, 2006 PART A [id number] DEHNEH,LY NN PATIENT MEDICARE (WNR) MEDICARE () PART A Nov 19, 2006 PART A [id number] [phone] DEHNEH,LY NN PATIENT MEDICARE (WNR) MEDICARE () PART B Nov 19, 2006 PART B [id number] DEHNEH,LY NN PATIENT Selected Encounter This section includes the information on record at [place] for the Encounter. Date/Time Encounter Type Encounter Description Reason Pro vider Source May 02, 2023 04:08 PM Outpatient Encounter PRIMARY CARE/MEDICINE IHE Encounter Template Text not used by [place] Plan of Treatment: Future Appointments (+ 6 months) and Future Tests (+/- 45 days) The Plan of Treatment section includes future care activities for the [facility] [place] [facility] This section includes future appointments and future orders which are active, pending or scheduled. Future Appointments This section includes appointments that were scheduled to occur 6 months from the date of the Encounter, up to a maximum of 20 appointments. The data comes from all [place] treatment facilities. Appointment Date/Time Appointment Type Appointme nt Facility Name May 11, 2023 03:45 PM AMBULATORY - NONE [facility] [place] [facility] May 11, 2023 04:00 PM AMBULATORY - NONE [facility] [place] [facility] May 18, 2023 01:00 PM AMBULATORY - MEDICINE [place] [facility] [place] [facility] May 24, 2023 09:30 AM AMBULATORY - REHAB MEDICIN E [facility] [place] [facility] Jun 06, 2023 02:00 PM AMBULATORY - MEDICINE [facility] June 22, 2023 01:30 PM AMBULATORY - MEDICINE [place] [facility] [place] [facility] July 05, 2023 03:00 PM AMBULATORY - PSYCHIATRY [facility] July 06, 2023 01:30 PM AMBULATORY - MEDICINE [place] [facility] [place] [facility] Aug 31, 2023 10:00 AM AMBULATORY - MEDICINE [place] [facility] [place] [facility] Sep 04, 2023 01:30 PM AMBULATORY - PSYCHIATRY [facility] Sep 11, 2023 03:00 PM AMBULATORY - MEDICINE [facility] Sep 13, 2023 08:00 AM AMBULATORY - MEDICINE [place] [facility] [place] [facility] Oct 29, 2023 04:00 PM AMBULATORY - PSYCHIATRY [facility] Lab Results: +/- 30 days of the encounter This section includes the Chemistry and Hematology Lab Results on record with [place] for the patient. Radiology Reports and Pathology Reports are provided separately, in subsequent sections. Lab Results This section contains the Chemistry/Hematology Results that were resulted 30 days before or 30 daysafter the date of the Encounter. Date/Time Source Result Type Result - Unit Interpretation Reference Range Comment Jun 01, 2023 11:36 AM [facility] HEMOGLOBIN A1C PANEL Specimen Type: BLOOD Comment: [...] Dec 15, 2022 08:49 PM Reporting Lab: [address] [address] Performing Lab: [address] [address] HEMOGLOBIN A1C 6.1 H 4.0-5.6 Jun 01, 2023 11:36 AM [facility] LIVER FUNCTION Specimen Type: SERUM No comment entered. Ordering Provider: JESSIE MOSS Report Released Date/Time: Dec 15, 2022 08:49 PM Reporting Lab: [address] [address] Performing Lab: [address] [address] PROTEIN,TOTAL 6.6 g/dL 6.0-8.3 ALBUMIN 4.0 g/dL 3.5-5.0 ALKALINE PHOSPHATASE 62 U/L 40-150 AST 18 U/L 5-34 ALT 24 U/L BILIRUBIN, TOTAL 0.5 mg/dL 0.2-1.2 Jun 01, 2023 11:36 AM [facility] CBC Specimen Type: BLOOD No comment entered. Ordering Provider: JESSIE MOSS Report Released Date/Time: Dec 15, 2022 08:49 PM Reporting Lab: [address] [address] Performing Lab: [address] [address] WBC 4.19 10*3/uL L 4.50-11.00 RBC 4.32 [...] and tobacco- related health factors from the [place] facility where the Encounter took place. Current Smoking Status This section includes the most current smoking, or tobacco-related health factor, from the [place] facility where the Encounter took place. Date/Time Current Smoking Status Comment Facil ity Aug 11, 2022 02:50 PM VA-TOBACCO NEVER USED [facility] Tobacco Use History This section includes a history of the smoking, or tobacco-related health factors, that were collected on or before the date of the Encounter. The data comes from the [place] facility where the Encounter took place. Date/Time Smoking Status/Tobacco Use Comment F acility Dec 05, 2019 01:53 PM VA-TOBACCO NEVER USED [facility] May 26, 2016 02:32 PM LIFETIME NON-TOBACCO USER [facility] Encounter Notes: All associated encounter notes This section contains the clinical notes associated to the Encounter. Date/Time Encounter Note(s) Provider Source May 02, 2023 04:08 PM LETTERS: LOCAL TITLE: PATIENT LETTER (B) STANDARD TITLE: LETTERS DATE OF NOTE: MAY 02, 2023@16:08 ENTRY DATE: MAY 02, 2023@16:09:04 AUTHOR: BLAINE CLAIRE COSIGNER: URGENCY: STATUS: COMPLETED INDY Yessy ELMIRA [address] [place] [id number] Date: MAY 02, 2023 Dear : Our goal at the [facility] is to provide you with quality medical care. This is a reminder of your appointment scheduled with our Clinical Pharmacist, Alicia Marcos on: Appointment Date: Apr @ 13:00 Appointment Type: In-person visit If you have any further questions or would like more information regarding [place] health care benefits, please call toll free at [phone] the VA website at www.va.gov/healthbenefits, or contact your local [place] [facility] Center. Below please find a listing of ALL of your upcoming appointments. Thank you for your service to our nation, and we look forward to hearing from you soon. Sincerely, BLAINE CLAIRE - ADVANCE PUBLICITY AGENT Office Staff for: Alicia Marcos - Clinical Pharmacist [facility] [address] [place] [phone] Upcoming Appointments: 05/10/2023 13:00 CWM/NO/PHYSICAL THERAPY A 05/11/2023 15:45 CWM/NO/DENTAL/RDH1 PM 05/18/2023 13:00 CWM/SO/PHARM/PACT 2 06/15/2023 14:30 CWM/SO/PACT 4 07/05/2023 15:00 CWM/SO/VVC/MHC/BERMUDEZ 01/29/2024 10:30 NHM/OPT/VISUAL IMAGING 01/29/2024 11:00 CWM/NO/OPTOMETRY/BRION[place] APPOINTMENT ABBREVIATION CHAVEZ (SPOPC OR SO = [address]) (GOPC OR GO = [address]) ([facility] = [facility]) (VVC - Video Call) (Tel-X Telephone Visit) (TH - Telehealth) BLAINE CLAIRE [facility]
--- OUTSIDE RECORDS SUMMARY | 2024-03-10 09:12 | XMS_ITS ---
Author Name [facility] [place] [facility] [place] Address [address] [place] [address] Care Team Providers Care Rail Assembler Name Role Phone GARRETT GOOD Primary Care [...] Boykin's Name Patient's Relationship to Policy Boykin [employer], a division of [employer] [facility] CE ORGANIZ HMO Oct 06, 2018 [id number] [phone] MEREDITH KU NN PATIENT ANTHEM BCBS CT FEDERAL PREFERRED PROVIDER ORGANIZAT ION (PPO) BASIC FAMIL Y Jan 31, 2015 [id number] MEREDITH KU NN PATIENT ANTHEM BCBS OF CT (BLUECARD) HIGH DEDUCTIBL E HEALTH PLAN CLINI [facility] & SUP HDHP Oct 06, 2018 [id number] MEREDITH KU NN PATIENT BCBS [place] HIGH DEDUCTIBL E HEALTH PLAN CLINI [facility] AND [place]LA[place] HDHP Oct 06, 2018 [id number] MEREDITH KU NN PATIENT BCBS [place] HIGH DEDUCTIBL E HEALTH PLAN CLINI CHRISTINE SUPP HDHP Oct 06, 2018 [id number] DELUISITOLY NN PATIENT BCBS OF [place] [facility] CE ORGANIZ CLINI CHRISTINE AND SUPPO RT Oct 06, [id number] DEMEREDITH JORGE NN PATIENT BCBS OF [facility] PREFERRED PROVIDER ORGANIZAT ION (PPO) BASIC FAMIL Y Jan 31, 2015 [id number] DEHNEHLY NN PATIENT [place] FEPRX PLAN PRESCRIPT ION BCBS FEP Jan 31, 2015 [id number] ELMIRALY NN PATIENT [place]ARK-F EP BCBS PRESCRIPT ION BCBS FEP PLAN Jan 31, 2015 [id number] ELMIRALY NN PATIENT EXPRESS SCRIPTS PRESCRIPT ION HMO Oct 06, 2018 L4TA [id number] DELUISITOLY NN PATIENT EXPRESS SCRIPTS PRESCRIPT ION CLINI [facility] AND SUPPO RT Sep 19, 2018 L4TA [id number] DELUISITOLY NN PATIENT EXPRESS SCRIPTS ([id number]) PRESCRIPT ION HDHP Oct 06, 2018 L4TA [id number] DEHNEHLY NN PATIENT EXPRESS SCRIPTS ([id number]) PRESCRIPT ION L4TA Oct 06, 2018 L4TA [id number] DEHNEHLY NN PATIENT EXPRESS SCRIPTS ([id number]) PRESCRIPT ION L4TA HDHP Oct 06, 2018 L4TA [id number] DELUISITOLY NN PATIENT EXPRESS SCRIPTS RX PRESCRIPT ION CLINI [facility] AND SUPPO RT Oct 06, 2018 L4TA [id number] DEHNEH,LY NN PATIENT [id number] [facility] CE ORGANIZ CLINI CHRISTINE AND SUPPO RT Oct 06, [id number] DEHNTAMEKALY NN PATIENT [id number] [facility] CE ORGANIZ CLINI CHRISTINE AND SUPPO RT Oct 06, [id number] DEHNEH,LY NN PATIENT G210 BCBS ([facility]) [facility] ORGANIZ CLINI CHRISTINE AND SUPPO RT Oct 06, 2018 [id number] DEHNEH,LY NN PATIENT G210 BCBS (PROFESSIO NAL) [facility] CE ORGANIZ CLINI CHRISTINE AND SUPPO RT Oct 06, [id number] DEHNEH,LY NN PATIENT MEDICARE (WN) MEDICARE ) PART A Nov 19, 2006 PART A [id number] DEHNEH,LY NN PATIENT MEDICARE (WN) MEDICARE ) PART A Nov 19, 2006 PART A [id number] DEHNEH,LY NN PATIENT MEDICARE (WN) MEDICARE ) PART B Nov 19, 2006 PART B [id number] DEHNEH,LY NN PATIENT MEDICARE ([facility]) MEDICARE (M) PART A Nov 19, 2006 PART A [id number] DEHNEH,LY NN PATIENT MEDICARE (WNR) MEDICARE ) PART A Nov 19, 2006 PART A [id number] DEHNEH,LY NN PATIENT MEDICARE (WN) MEDICARE (M) PART A Nov 19, 2006 PART A [id number] DEHNEH,LY NN PATIENT MEDICARE (WNR) MEDICARE (M) PART A Nov 19, 2006 PART A [id number] [phone] DEHNEH,LY NN PATIENT MEDICARE (WNR) MEDICARE ) PART A Nov 19, 2006 PART A [id number] DEHNEH,LY NN PATIENT MEDICARE (WN) MEDICARE ) PART B Nov 19, 2006 PART B [id number] DEHNEH,LY NN PATIENT Selected Encounter This section includes the information on record at [place] for the Encounter. Date/Time Encounter Type Encounter Description Reason Provider Source May 11, 2023 04:00 PM DENTAL BITEWING FOUR IMAGES DENTAL ICD-10-CM K08.9 Disorder of teeth and supporting structures, unspecified CALEB RHODES [facility] Encounter Template Text not used by [place] Assessments - Encounter Diagnoses This section includes the primary and secondary diagnoses documented for the Encounter. Date/Time Primary/Secondary Diagnosis Diagnosis Name Provider Source May 11, 2023 04:41 PM PRIMARY Disorder of teeth and supporting structures, unspecified CALEB RHODES [place] [facility] [place] [facility] Plan of Treatment: Future Appointments (+ 6 months) and Future Tests (+/- 45 days) The Plan of Treatment section includes future care activities for the patient from all [place] treatmentfacilities. This section includes future appointments and [...] - MEDICINE [facility] [place] [facility] May 24, 2023 09:30 AM AMBULATORY - REHAB MEDICIN E [place] [facility] [place] [facility] Jun 06, 2023 02:00 PM AMBULATORY - MEDICINE [facility] June 22, 2023 01:30 PM AMBULATORY - MEDICINE [facility] [place] [facility] July 05, 2023 03:00 PM AMBULATORY - PSYCHIATRY [facility] July 06, 2023 01:30 PM AMBULATORY - MEDICINE [facility] [place] [facility] Aug 31, 2023 10:00 AM AMBULATORY - MEDICINE [facility] [place] [facility] Sep 04, 2023 01:30 PM AMBULATORY - PSYCHIATRY [facility] Sep 11, 2023 03:00 PM AMBULATORY - MEDICINE [facility] Sep 13, 2023 08:00 AM AMBULATORY - MEDICINE [facility] [place] [facility] Oct 29, 2023 04:00 PM AMBULATORY - PSYCHIATRY [facility] Nov 07, 2023 02:15 PM AMBULATORY - MEDICINE [facility] Nov 08, 2023 11:00 AM AMBULATORY - MEDICINE [facility] [place] [facility] Nov 09, 2023 01:30 PM AMBULATORY - MEDICINE [facility] Lab Results: +/- 30 days of [...] Range Comment Jun 01, 2023 11:36 AM [place] HEMOGLOBIN A1C PANEL Specimen Type: BLOOD Comment: [...] Dec 15, 2022 08:49 PM Reporting Lab: [address] [address] Performing Lab: [address] [address] HEMOGLOBIN A1C 6.1 H 4.0-5.6 Jun 01, 2023 11:36 AM [place] LIVER FUNCTION Specimen Type: SERUM No comment entered. Ordering Provider: JESSIE MOSS Report Released Date/Time: Dec 15, 2022 08:49 PM Reporting Lab: [address] [address] Performing Lab: [address] [address] PROTEIN,TOTAL 6.6 g/dL 6.0-8.3 ALBUMIN 4.0 g/dL 3.5-5.0 ALKALINE PHOSPHATASE 62 U/L 40-150 AST 18 U/L 5-34 ALT 24 U/L BILIRUBIN, TOTAL 0.5 mg/dL 0.2-1.2 Jun 01, 2023 11:36 AM [place] CBC Specimen Type: BLOOD No comment entered. Ordering Provider: JESSIE MOSS Report Released Date/Time: Dec 15, 2022 08:49 PM Reporting Lab: [address] [address] Performing Lab: [address] [address] WBC 4.19 10*3/uL L 4.50-11.00 RBC 4.32 [...] 11, 2022 02:50 PM VA-TOBACCO NEVER USED [facility] Tobacco Use History This section includes a history of the smoking, or tobacco-related health factors, that were collected on or before the date of the Encounter. The data comes from the [place] facility where the Encounter took place. Date/Time Smoking Status/Tobacco Use Comment Barb gonzalez Dec 05, 2019 01:53 PM VA-TOBACCO NEVER USED [facility] May 26, 2016 02:32 PM LIFETIME NON-TOBACCO USER [facility] Encounter Notes: All associated encounter notes This section contains the clinical notes associated to the Encounter. Date/Time Encounter Note(s) Provider Source May 11, 2023 04:39 PM DENTISTRY NOTE: LOCAL TITLE: DENTAL NOTE STANDARD TITLE: DENTISTRY NOTE DATE OF NOTE: MAY 11, 2023@16:39 ENTRY DATE: MAY 11, 2023@16:41:04 AUTHOR: CALEB RHODES COSIGNER: URGENCY: STATUS: COMPLETED Patient Name: INDY KU, : 1965, Age: 58 Visit: V: May 11, 2023@16:00 CWM/NO/DENTAL/DMD3 PM. Primary PCE Diagnosis: K08.9 (DISORDER OF TEETH AND SUPPORTING STRUCTURES, UNSPECIFIED). Dental Category: 15-OPC, Class IV. Treatment Status: Maintenance. Completed Care: (D0120) PERIODIC ORAL EVAL EST. DX: K08.9 Disorder of Teeth and Supporting Structures, unspecified (D0274) DENTAL BITEWING FOUR IMAGES. DX: K08.9 Disorder of Teeth and Supporting Structures, unspecified The patient was identified by full name and social security number Reviewed the patient's medical/dental history, medications and allergies. I performed medication reconciliation within the scope of my practice. All medications related to dentistry are up to date. Discussed above proposed treatment plan. Patient understands and agrees with the treatment plan. Presentation/Chief Complaint: Patient presents for periodic oral evaluation Patient has no dental complaints Vital Signs: Vital signs not obtained Past Medical History and Medications: No significant changes since the last dental visit Intraoral and Extraoral Screening Exam Findings: 05/11/2023 Head and neck assessment with oral cancer screening is negative: no apparent pathology noted. Oral Examination: Oral Health Assessment Findings: Create Date: 05/11/2023 - ANA CRISTINA AIKEN Plaque Index: 1 - Slight Xerostomia: 0 - None Caries Risk: 2 - Moderate Oral Hygiene: 2 - Fair Dentition exhibits no apparent evidence of dental pathology at this visit No Significant Tooth Mobility Noted PSR Exam: Create Date: 05/11/2023 - ANA CRISTINA AIKEN 2-2-2 - - - 2-2-2 Periodontal Assessment: Chronic Slight Generalized Periodontitis Assessment/Plan: No urgent dental needs or acute dental infections noted on examination. No treatment required at this time Disposition: Next visit: recall/prn - - - - - - - - - - - - - - - - - - - - - - - - - - - - - - /farhan/ CALEB RHODES DMD Staff Dentist Signed: 05/11/2023 16:41 CALEB RHODES [place] [facility] [place] [facility] May 11, 2023 04:38 PM DENTISTRY CONSULT: LOCAL TITLE: CONSULT REPORT/DENTAL STANDARD TITLE: DENTISTRY CONSULT DATE OF NOTE: MAY 11, 2023@16:38 ENTRY DATE: MAY 11, 2023@16:38:43 AUTHOR: CALEB RHODES EXP COSIGNER: URGENCY: STATUS: COMPLETED Current PC Provider: ELMER RO Current PC Team: ELIZABETH PACT 8 *WH* Current Pat. Status: Outpatient UCID: [id number] Primary Eligibility: SERVICE CONNECTED 50% to 100%(VERIFIED) Patient Type: SC OEF/OIF: NO Service Connection/Rated Disabilities SC Percent: 100% Rated Disabilities: MAJOR DEPRESSIVE DISORDER (100%) Order Information To Service: DENTAL IMAGING From Service: CWM/NO/DENTAL/RDH1 PM Requesting Provider: ANA CRISTINA AIKEN Service is to be rendered on an OUTPATIENT basis Place: Instructional Materials Director's choice Urgency: Routine Clinically Ind. Date: May 11, 2023 DST ID: Orderable Item: DENTAL IMAGING Consult: Consult Request Provisional Diagnosis: Dental Caries, unspecified(ICD-10-CM K02.9) Reason For Request: Orthopan Inter-facility Information This is not an inter-facility consult request. Status: PENDING Last Action: CPRS RELEASED ORDER Facility Activity Date/Time/Zone Responsible Person Entered By CPRS RELEASED ORDER 05/11/23 14:24 ANA CRISTINA AIKEN JESSICA K Note: TIME ZONE is local if not indicated No local HERLINDA results or Medicine results available for this consult ======= END ======== /farhan/ CALEB RHODES DMD Staff Dentist Signed: 05/11/2023 16:38 [facility]
--- OUTSIDE RECORDS SUMMARY | 2024-03-10 09:12 | XMS_ITS ---
Author Name [facility] [place] Address [address] [place] [address] Care Team Providers Care Seo Consultant Name Role Phone GARRETT GOOD Primary Care [...] Name Patient's Relationship to Policy [place] [facility] CE ORGANIZ HMO Oct 06, 2018 HMO [id number] [phone] MEREDITH KU NN PATIENT ANTHEM BCBS CT FEDERAL PREFERRED PROVIDER ORGANIZAT ION (PPO) BASIC FAMIL Y Jan 31, 2015 [id number] MEREDITH KU NN PATIENT ANTHEM BCBS OF CT (BLUECARD) HIGH DEDUCTIBL E HEALTH PLAN CLINI CHRISTINE & SUP HDHP Oct 06, 2018 [id number] [phone] MEREDITH KU NN PATIENT BCBS [place] HIGH DEDUCTIBL E HEALTH PLAN CLINI [facility] AND [place]LA[place] HDHP Oct 06, 2018 [id number] [phone] MEREDITH KU NN PATIENT BC[place] OF [place] HIGH DEDUCTIBL E HEALTH PLAN CLINI CHRISTINE SUPP HDHP Oct 06, [id number] DELUISITOLY NN PATIENT BCBS OF [facility] CE ORGANIZ CLINI CHRISTINE AND SUPPO RT Oct 06, [id number] DELUISITOLY NN PATIENT BCBS OF [facility] PREFERRED PROVIDER ORGANIZAT ION (PPO) BASIC FAMIL Y Jan 31, 2015 [id number] [phone] DEHNTAMEKALY NN PATIENT [place] FEPRX PLAN PRESCRIPT ION BCBS FEP Jan 31, 2015 [id number] MEREDITH KU NN PATIENT [place]-F EP BCBS PRESCRIPT ION BCBS FEP PLAN Jan 31, 2015 [id number] ELMIRALY NN PATIENT EXPRESS SCRIPTS PRESCRIPT ION HMO Oct 06, 2018 L4TA [id number] ELMIRALY NN PATIENT EXPRESS SCRIPTS PRESCRIPT ION CLINI CHRISTINE AND SUPPO RT Sep 19, 2018 L4TA [id number] DELUISITOLY NN PATIENT EXPRESS SCRIPTS ([id number]) PRESCRIPT ION HDHP Oct 06, 2018 L4TA [id number] DEHNEHLY NN PATIENT EXPRESS SCRIPTS ([id number]) PRESCRIPT ION L4TA Oct 06, 2018 L4TA [id number] DEHNEHLY NN PATIENT EXPRESS SCRIPTS ([id number]) PRESCRIPT ION L4TA HDHP Oct 06, 2018 L4TA [id number] DELUISITOLY NN PATIENT EXPRESS SCRIPTS RX PRESCRIPT ION CLINI CHRISTINE AND SUPPO RT Oct 06, 2018 L4TA [id number] DEHNEH,LY NN PATIENT [id number] [facility] CE ORGANIZ CLINI CHRISTINE AND SUPPO RT Oct 06, [id number] DEHNTAMEKALY NN PATIENT [id number] [facility] CE ORGANIZ CLINI CHRISTINE AND SUPPO RT Oct 06, [id number] DEHNEH,LY NN PATIENT G210 BCBSM ([facility]) [facility]GAN[facility] CLINI CHRISTINE AND SUPPO RT Oct 06, [id number] DEHNEH,LY NN PATIENT G210 BCBS (PROFESSIO NAL) [facility] CE ORGANIZ CLINI CHRISTINE AND SUPPO RT Oct 06, [id number] DEHNEH,LY NN PATIENT MEDICARE (WNR) MEDICARE () PART A Nov 19, 2006 PART A [id number] DEHNEH,LY NN PATIENT MEDICARE (WNR) MEDICARE () PART A Nov 19, 2006 PART A [id number] DEHNEH,LY NN PATIENT MEDICARE (WNR) MEDICARE () PART A Nov 19, 2006 PART A [id number] DEHNEH,LY NN PATIENT MEDICARE (WNR) MEDICARE () PART B Nov 19, 2006 PART B [id number] DEHNEH,LY NN PATIENT MEDICARE (WNR) MEDICARE () PART A Nov 19, 2006 PART A [id number] DEHNEH,LY NN PATIENT MEDICARE (WNR) MEDICARE () PART A Nov 19, 2006 PART A [id number] DEHNEH,LY NN PATIENT MEDICARE (WNR) MEDICARE () PART A Nov 19, 2006 PART A [id number] DEHNEH,LY NN PATIENT MEDICARE (WNR) MEDICARE () PART A Nov 19, 2006 PART A [id number] DEHNEH,LY NN PATIENT MEDICARE (WNR) MEDICARE () PART B Nov 19, 2006 PART B [id number] [phone] DEHNEH,LY NN PATIENT Selected Encounter This section includes the information on record at [facility] for the Encounter. Date/Time Encounter Type Encounter Description Reason Pro vider Source May 22, 2023 10:36 AM [facility] En[facility] Template Text not used by [facility] Plan of Treatment: Future Appointments (+ 6 months) and Future Tests (+/- 45 days) The Plan of Treatment section includes future care activities for the [facility] [place] [facility] This section includes future appointments and future orders which are active, pending or scheduled. Future Appointments This section includes appointments that were scheduled to occur 6 months from the date of the Encounter, up to a maximum of 20 appointments. The data comes from all [place] treatment facilities. Appointment Date/Time Appointment Type Appointme nt Facility Name May 24, 2023 09:30 AM AMBULATORY - [place]ICIN [place] [facility] [place] [facility] Jun 06, 2023 02:00 PM AMBULATORY - MEDICINE [facility] June 22, 2023 01:30 PM AMBULATORY - MEDICINE [facility] [place] [facility] July 05, 2023 03:00 PM AMBULATORY - PSYCHIATRY [facility] July 06, 2023 01:30 PM AMBULATORY - MEDICINE [facility] [place] [facility] Aug 31, 2023 10:00 AM AMBULATORY - MEDICINE [facility] [place] [facility] Sep 04, 2023 01:30 PM AMBULATORY - PSYCHIATRY [facility] Sep 11, 2023 03:00 PM AMBULATORY - MEDICINE [facility] Sep 13, 2023 08:00 AM AMBULATORY - MEDICINE [facility] [place] [facility] Oct 29, 2023 04:00 PM AMBULATORY - PSYCHIATRY [facility] Nov 07, 2023 02:15 PM AMBULATORY - MEDICINE [facility] Nov 08, 2023 11:00 AM AMBULATORY - MEDICINE [place] [facility] [place] [facility] Nov 09, 2023 01:30 PM AMBULATORY - MEDICINE [facility] Nov 15, 2023 11:00 AM AMBULATORY - REHAB [facility] [place] Nov 16, 2023 10:30 AM AMBULATORY - NONE [place] [facility] [place] [facility] Nov 16, 2023 11:00 AM AMBULATORY - NONE [place] [facility] [place] [facility] Lab Results: +/- 30 days of the encounter This section includes the Chemistry and Hematology Lab Results on record with [place] for the patient. Radiology Reports and Pathology Reports are provided separately, in subsequent sections. Lab Results This section contains the Chemistry/Hematology Results that were resulted 30 days before or 30 daysafter the date of the Encounter. Date/Time Source Result Type Result - Unit Interpretation Reference Range Comment Jun 01, 2023 11:36 AM [place] HEMOGLOBIN A1C PANEL Specimen Type: BLOOD Comment: [...] Dec 15, 2022 08:49 PM Reporting Lab: [address] [address] Performing Lab: [address] [address] HEMOGLOBIN A1C 6.1 H 4.0-5.6 Jun 01, 2023 11:36 AM [place] LIVER FUNCTION Specimen Type: SERUM No comment entered. Ordering Provider: JESSIE MOSS Report Released Date/Time: Dec 15, 2022 08:49 PM Reporting Lab: [address] [address] Performing Lab: [address] [address] PROTEIN,TOTAL 6.6 g/dL 6.0-8.3 ALBUMIN 4.0 g/dL 3.5-5.0 ALKALINE PHOSPHATASE 62 U/L 40-150 AST 18 U/L 5-34 ALT 24 U/L BILIRUBIN, TOTAL 0.5 mg/dL 0.2-1.2 Jun 01, 2023 11:36 AM [place] CBC Specimen Type: BLOOD No comment entered. Ordering Provider: JESSIE MOSS Report Released Date/Time: Dec 15, 2022 08:49 PM Reporting Lab: [address] [address] Performing Lab: [address] [address] WBC 4.19 10*3/uL L 4.50-11.00 RBC 4.32 [...] 11, 2022 02:50 PM [facility] Tobacco Use History This section includes a history of the smoking, or tobacco-related health factors, that were collected on or before the date of the Encounter. The data comes from the [place] facility where the Encounter took place. Date/Time Smoking Status/Tobacco Use Comment F acility Dec 05, 2019 01:53 PM VA-TOBACCO NEVER USED [place] [facility] [place] [facility] May 26, 2016 02:32 PM LIFETIME NON-TOBACCO USER [place] [facility] [place] [facility] Encounter Notes: All associated encounter notes This section contains the clinical notes associated to the Encounter. Date/Time Encounter Note(s) Provider Source May 22, 2023 10:36 AM MENTAL HEALTH NOTE : LOCAL TITLE: [facility] CC ASSIGNMENT STANDARD TITLE: MENTAL HEALTH NOTE DATE OF NOTE: MAY 22, 2023@10:36 ENTRY DATE: MAY 22, 2023@10:36:50 AUTHOR: CRISPIN GIRALDO EXP COSIGNER: URGENCY: STATUS: COMPLETED Mental Health Regional Facilities Specialist Assignment Reassignment [facility] current [facility] Regional Facilities Specialist (MHTC) is: MH Treatment Team: MARIALUISA Gonzalez Regional Facilities Specialist: MOIRA CORTEZ Office , [phone] Analog Pager: Digital Pager: This note documents the REASSIGNMENT of the [facility]ilities Specialist (MHTC) on May. New MHTC name: Eli Wasserman RN MHTC Contact Information: [phone] This 's existing MHTC was reassigned due to: is transitioning to a new [facility] Team /es/ CRISPIN GIRALDO [facility] MATERIAL PREPARATION WORKER Signed: 05/22/2023 10:37 Receipt Acknowledged By: 05/22/2023 12:12 /farhan/ ELI WASSERMAN Registered Nurse CRISPIN GIRALDO [place] [facility]
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
--- OUTSIDE RECORDS SUMMARY | 2024-03-10 09:13 | XMS_ITS ---
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 Manufacturing Quality Engineer Name Role Phone GARRETT GOOD Primary [...] Boykin's Name Patient's Relationship to Policy [facility] [facility] Oct 06, 2018 O [id number] MEREDITH KU NN PATIENT ANTHEM BCBS CT FEDERAL PREFERRED PROVIDER ORGANIZAT ION (PPO) BASIC FAMIL Y Jan 31, 2015 [id number] MEREDITH KU NN PATIENT ANTHEM BCBS OF CT (BLUECARD) HIGH DEDUCTIBL E HEALTH PLAN CLINI [facility] SUP HDHP Oct 06, 2018 [id number] [phone] MEREDITH KU NN PATIENT BCBS [place] HIGH DEDUCTIBL E HEALTH PLAN [facility] [place] HDHP Oct 06, 2018 [id number] [phone] MEREDITH KU NN PATIENT BCBS OF [place] HIGH DEDUCTIBL E HEALTH PLAN CLINI [facility]INE SUPP HDHP Oct 06, 2018 [id number] DELUISITOLY NN PATIENT BCBS OF [place]/Anadys [facility] CE ORGANIZ CLINI [facility] AND SUPPO RT Oct 06, [id number] DEMEREDITH JORGE NN PATIENT BCBS OF [facility] PREFERRED PROVIDER ORGANIZAT ION (PPO) BASIC FAMIL Y Jan 31, 2015 [id number] DEHNEHLY NN PATIENT [place] FEPRX PLAN PRESCRIPT ION BCBS FEP Jan 31, 2015 [id number] ELMIRALY NN PATIENT [place]-F EP BCBS PRESCRIPT ION BCBS FEP PLAN Jan 31, 2015 [id number] ELMIRALY NN PATIENT EXPRESS SCRIPTS PRESCRIPT ION HMO Oct 06, 2018 L4TA [id number] DELUISITOLY NN PATIENT EXPRESS SCRIPTS PRESCRIPT ION CLINI [facility] SUPPO RT Sep 19, 2018 L4TA [id number] DELUISITOLY NN PATIENT EXPRESS SCRIPTS ([id number]) PRESCRIPT ION HDHP Oct 06, 2018 L4TA [id number] [phone] [id number] DEHNEHLY NN PATIENT EXPRESS SCRIPTS ([id number]) PRESCRIPT ION L4TA Oct 06, 2018 L4TA [id number] DEHNEHLY NN PATIENT EXPRESS SCRIPTS ([id number]) PRESCRIPT ION L4TA HDHP Oct 06, 2018 L4TA [id number] DELUISITOLY NN PATIENT EXPRESS SCRIPTS RX PRESCRIPT ION CLINI [facility] AND SUPPO RT Oct 06, 2018 L4TA [id number] [phone] DEHNEH,LY NN PATIENT [id number] [facility] CE ORGANIZ CLINI [facility]STINE AND SUPPO RT Oct 06, [id number] [phone] DEHNTAMEKALY NN PATIENT [id number] [facility] CE ORGANIZ CLINI CHRISTINE AND SUPPO RT Oct 06, [id number] DEHNEH,LY NN PATIENT [id number] BCBS ([facility] CE ORGANIZ CLINI [facility]INE AND SUPPO RT Oct 06, 2018 [id number] [id number] DEHNEH,LY NN PATIENT G210 BCBSM [facility] SUPPO RT Oct 06, [id number] DEHNEH,LY NN PATIENT MEDICARE (WNR) MEDICARE ) PART A Nov 19, 2006 PART A [id number] DEHNEH,LY NN PATIENT MEDICARE (WNR) MEDICARE ) PART A Nov 19, 2006 PART A [id number] DEHNEH,LY NN PATIENT MEDICARE (WNR) MEDICARE ) PART A Nov 19, 2006 PART A [id number] DEHNEH,LY NN PATIENT MEDICARE (WN) MEDICARE ) PART B Nov 19, 2006 PART B [id number] DEHNEH,LY NN PATIENT MEDICARE (WNR) MEDICARE () PART A Nov 19, 2006 PART A [id number] DEHNEH,LY NN PATIENT MEDICARE (WN) MEDICARE ) PART A Nov 19, 2006 PART A [id number] DEHNEH,LY NN PATIENT MEDICARE (WNR) MEDICARE ) PART A Nov 19, 2006 PART A [id number] DEHNEH,LY NN PATIENT MEDICARE (WNR) MEDICARE ) PART A Nov 19, 2006 PART A [id number] DEHNEH,LY NN PATIENT MEDICARE (WNR) MEDICARE ) PART B Nov 19, 2006 PART B [id number] DEHNEH,LY NN PATIENT Selected Encounter This section includes the information on record at [facility] for the Encounter. Date/Time Encounter Type Encounter Description Reason Provider Source May 24, 2023 09:30 AM SELF CARE MNGMENT TRAINING PHYSICAL THERAPY ICD-10-CM M79.672 Pain in left foot JENSEN GOMEZ IHE Encounter Template Text not used by [facility] Assessments - Encounter Diagnoses This section includes the primary and secondary diagnoses documented for the Encounter. Date/Time Primary/Secondary Diagnosis Diagnosis Name Provider Source May 24, 2023 02:29 PM PRIMARY Pain in left foot JENSEN GOMEZ [facility] [place] [facility] Plan of Treatment: Future Appointments (+ 6 months) and Future Tests (+/- 45 days) The Plan of Treatment section includes future care activities for the patient from all [facility] treatmentfacilities. This section includes future appointments and future orders which are active, pending or scheduled. Future Appointments This section includes appointments that were scheduled to occur 6 months from the date of the Encounter, up to a maximum of 20 appointments. The data comes from all [facility] treatment facilities. Appointment Date/Time Appointment Type Appointme nt Facility Name Jun 06, 2023 02:00 PM AMBULATORY - MEDICINE [facility] June 22, 2023 01:30 PM AMBULATORY - MEDICINE [facility] [place] [facility] July 05, 2023 03:00 PM AMBULATORY - PSYCHIATRY [facility] July 06, 2023 01:30 PM AMBULATORY - MEDICINE [facility] [place] [facility] Aug 31, 2023 10:00 AM AMBULATORY - MEDICINE [facility] [place] [facility] Sep 04, 2023 01:30 PM AMBULATORY - PSYCHIATRY [facility] Sep 11, 2023 03:00 PM AMBULATORY - MEDICINE [facility] Sep 13, 2023 08:00 AM AMBULATORY - MEDICINE [facility] [place] [facility] Oct 29, 2023 04:00 PM AMBULATORY - PSYCHIATRY [facility] Nov 07, 2023 02:15 PM AMBULATORY - MEDICINE [facility] Nov 08, 2023 11:00 AM AMBULATORY - MEDICINE [facility] [place] [facility] Nov 09, 2023 01:30 PM AMBULATORY - MEDICINE [facility] Nov 15, 2023 11:00 AM AMBULATORY - REHAB [facility]ICIN [facility] Nov 16, 2023 10:30 AM AMBULATORY - NONE [facility] [place] [facility] Nov 16, 2023 11:00 AM AMBULATORY - NONE [facility] [place] [facility] Lab Results: +/- 30 days of the encounter This section includes the Chemistry and Hematology Lab Results on record with [facility] for the patient. Radiology Reports and Pathology Reports are provided separately, in subsequent sections. Lab Results This section contains the Chemistry/Hematology Results that were resulted 30 days before or 30 daysafter the date of the Encounter. Date/Time Source Result Type Result - Unit Interpretation Reference Range Comment Jun 01, 2023 11:36 AM [facility] HEMOGLOBIN A1C PANEL Specimen Type: BLOOD [...] Dec 15, 2022 08:49 PM Reporting Lab: [address] [id number] Performing Lab: [address] [phone] HEMOGLOBIN A1C 6.1 H 4.0-5.6 Jun 01, 2023 11:36 AM [facility] LIVER FUNCTION Specimen Type: SERUM No comment entered. Ordering Provider: JESSIE MOSS Report Released Date/Time: Dec 15, 2022 08:49 PM Reporting Lab: [address] [id number] Performing Lab: [address] [phone] PROTEIN,TOTAL 6.6 g/dL 6.0-8.3 ALBUMIN 4.0 g/dL 3.5-5.0 ALKALINE PHOSPHATASE 62 U/L 40-150 AST 18 U/L 5-34 ALT 24 U/L BILIRUBIN, TOTAL 0.5 mg/dL 0.2-1.2 Jun 01, 2023 11:36 AM [facility] CBC Specimen Type: BLOOD No comment entered. Ordering Provider: JESSIE MOSS Report Released Date/Time: Dec 15, 2022 08:49 PM Reporting Lab: [address] [id number] Performing Lab: [facility] [address] [facility] [id number] WBC 4.19 10*3/uL L 4.50-11.00 RBC 4.32 [...] and tobacco- related health factors from the [facility] facility where the Encounter took place. Current Smoking Status This section includes the most current smoking, or tobacco-related health factor, from the [facility] facility where the Encounter took place. Date/Time Current Smoking Status Comment Rory nicholas Aug 11, 2022 02:50 PM VA-TOBACCO NEVER USED [facility] Tobacco Use History This section includes a history of the smoking, or tobacco-related health factors, that were collected on or before the date of the Encounter. The data comes from the [facility] facility where the Encounter took place. Date/Time Smoking Status/Tobacco Use Comment Barb gonzalez Dec 05, 2019 01:53 PM VA-TOBACCO NEVER USED [facility] May 26, 2016 02:32 PM LIFETIME NON-TOBACCO USER [facility] Encounter Notes: All associated encounter notes This section contains the clinical notes associated to the Encounter. Date/Time Encounter Note(s) Provider Source May 24, 2023 10:02 AM PHYSICAL THERAPY DISCHARGE NOTE: LOCAL TITLE: PHYSICAL THERAPY DISCHARGE NOTE STANDARD TITLE: PHYSICAL THERAPY DISCHARGE NOTE DATE OF NOTE: MAY 24, 2023@10:02 ENTRY DATE: MAY 24, 2023@10:03:03 AUTHOR: JENSEN GOMEZ COSIGNER: URGENCY: STATUS: COMPLETED DISCHARGE SUMMARY Initial Evaluation date: 03/15/23 Progress Note Date: n/a Treatment #: 4 Treatment time: 22min Diagnosis: pain L ankle/foot Provider: dr moss/ referring provider dr goff PT Treatment Precautions: DM but sugars well controlled, HTN, connective tissue disorder Patient identified by full name and date of S: I'm doing well, I'm going to go on vacation in June and I realize I probably won't be hiking for 6-7miles but I'll do 1-2miles at a time Pain to L foot on average 3/10 O:Present status:IND with HEP, no pain today Treatment since eval has consisted of : (x )Postural education (x )therapeutic exercise (x )range of motion (x )strength (x )home exercise instruction: PROGRESS CHECK: Strength: hip and knee grossly 5/5 except R hip/knee grossly 4+/5 L ankle DF 5/5 PF 5/5 painful Inv 5/5 Eversion 5/5 Peroneal 4+/5 mild pain lateral ankle anterior tib 5/5 mild pain posterior tib 5/5 pain Gastroc 5/5 painful Goals (to be assessed in 4-6 weeks) 1. Pt to be I with HEP- MET 2. Pt to report plantar pain no more than 2/10 at worst within the last week to allow her to return to hiking in the spring-PART MET on avg pain 2/10 increasing to 3/10 3. Pt to report ambulating 2 miles with plantar pain no more than 2/10 at worst- NOT MET 1 1/2 miles total and tolerated well 4. Pt to be able to demonstrate ankle strength 5/5 all motions- PART MET, all but eversion is 5/5 strength Discussion with vet on importance of continued weight loss to help with reducing stress to plantar surface of feet, she is working towards this. Pacing activities to continue to perform low impact activities short bouts but frequently so as not to aggravate it. Pt with continued pain but is managing it well and is I with HEP thus far so is appropriate for discharge from therapy Pt is appropriate for discharge due to: (x)goals part met: (x)Pt able to continue with home program independently (x )Pt is in agreement with plan to be discharged from PT /farhan/ JENSEN GOMEZ PT PHYSICAL THERAPIST Signed: 05/24/2023 14:29 JENSEN GOMEZ [facility] [place] [facility]
--- OUTSIDE RECORDS SUMMARY | 2024-03-10 09:13 | XMS_ITS | Encounter Summary ---
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 Name Role Phone GARRETT GOOD Primary Care [...] Name Patient's Relationship to Policy [place] [facility] CE ORGANIZ HMO Oct 06, 2018 O [id number] MEREDITH KU NN PATIENT ANTHEM BCBS CT FEDERAL PREFERRED PROVIDER ORGANIZAT ION (PPO) BASIC FAMIL Y Jan 31, 2015 [id number] MEREDITH KU NN PATIENT ANTHEM BCBS OF CT (BLUECARD) HIGH DEDUCTIBL E HEALTH PLAN CLINI [facility]P HDHP Oct 06, 2018 [id number] MEREDITH KU NN PATIENT BCBS [place] HIGH DEDUCTIBL E HEALTH PLAN [facility] [place] HDHP Oct 06, 2018 [id number] MEREDITH KU NN PATIENT BCBS OF [place] HIGH DEDUCTIBL E HEALTH PLAN CLINI [facility] SUPP HDHP Oct 06, 2018 [id number] ATTILATAMEKALY NN PATIENT BCBS OF [place] CE ORGANIZ CLINI [facility] AND SUPPO RT Oct 06, [id number] DEHNTAMEKALY NN PATIENT BCBS OF [facility] PREFERRED PROVIDER ORGANIZAT ION (PPO) BASIC FAMIL Y Jan 31, 2015 [id number] DELUISITOLY NN PATIENT [place] FEPRX PLAN PRESCRIPT ION BCBS FEP Jan 31, 2015 [id number] ELMIRALY NN PATIENT [place]-F EP BCBS PRESCRIPT ION BCBS FEP PLAN Jan 31, 2015 [id number] ELMIRALY NN PATIENT EXPRESS SCRIPTS PRESCRIPT ION HMO Oct 06, 2018 L4TA [id number] DENEREYDATAMEKALY NN PATIENT EXPRESS SCRIPTS PRESCRIPT ION CLINI [facility]PPO RT Sep 19, 2018 L4TA [id number] DELUISITOLY NN PATIENT EXPRESS SCRIPTS ([id number]) PRESCRIPT ION HDHP Oct 06, 2018 L4TA [id number] DEHNTAMEKALY NN PATIENT EXPRESS SCRIPTS ([id number]) PRESCRIPT ION L4TA Oct 06, 2018 L4TA [id number] DEHNEHLY NN PATIENT EXPRESS SCRIPTS ([id number]) PRESCRIPT ION L4TA HDHP Oct 06, 2018 L4TA [id number] DELUISITOLY NN PATIENT EXPRESS SCRIPTS RX PRESCRIPT ION CLINI [facility]PPO RT Oct 06, 2018 L4TA [id number] DELUISITO,LY NN PATIENT [id number] [facility] CE ORGANIZ CLINI [facility] AND SUPPO RT Oct 06, [id number] ELMIRALY NN PATIENT [id number] [facility] CE [facility]GANIZ [facility] SUPPO RT Oct 06, [id number] DEHNEH,LY NN PATIENT G210 BCBSM ([facility] SUPPO RT Oct 06, [id number] DEHNEH,LY NN PATIENT G210 BCBSM ([facility] RT Oct 06, [id number] DEHNEH,LY NN PATIENT MEDICARE (WNR) MEDICARE ) PART A Nov 19, 2006 PART A [id number] DEHNEH,LY NN PATIENT MEDICARE (WNR) MEDICARE () PART A Nov 19, 2006 PART A [id number] DEHNEH,LY NN PATIENT MEDICARE (WNR) MEDICARE () PART A Nov 19, 2006 PART A [id number] DEHNEH,LY NN PATIENT MEDICARE (WN) MEDICARE ) PART A Nov 19, 2006 PART A [id number] DEHNEH,LY NN PATIENT MEDICARE (WNR) MEDICARE () PART B Nov 19, 2006 PART B [id number] DEHNEH,LY NN PATIENT MEDICARE (WNR) MEDICARE () PART A Nov 19, 2006 PART A [id number] DEHNEH,LY NN PATIENT MEDICARE (WNR) MEDICARE ) PART A Nov 19, 2006 PART A [id number] DEHNEH,LY NN PATIENT MEDICARE (WNR) MEDICARE ) PART A Nov 19, 2006 PART A [id number] DEHNEH,LY NN PATIENT MEDICARE (WNR) MEDICARE () PART B Nov 19, 2006 PART B [id number] DEHNEH,LY NN PATIENT Selected Encounter This section includes the information on record at [place] for the Encounter. Date/Time Encounter Type Encounter Description Reason Provider Source Jun 06, 2023 02:00 PM OFFICE O/P EST MOD 30 MIN PRIMARY CARE/MEDICINE ICD-10-CM E11.9 Type 2 diabetes mellitus without complications STELEELMER Krishnamurthy [facility] Encounter Template Text not used by [place] Assessments - Encounter Diagnoses This section includes the primary and secondary diagnoses documented for the Encounter. Date/Time Primary/Secondary Diagnosis Diagnosis Name Provider Source Jun 06, 2023 02:48 PM PRIMARY Type 2 diabetes mellitus without complications ELMER RO MANITOU Jun 06, 2023 02:48 PM SECONDARY Anemia, unspecified ELMER RO MANITOU Jun 06, 2023 02:48 PM SECONDARY Hyperlipidemia, unspecified ELMER RO MANITOU Jun 06, 2023 02:48 PM SECONDARY Systemic disord of conn tiss in oth diseases classd elswhr ELMER RO MANITOU Plan of Treatment: Future Appointments (+ 6 months) and Future Tests (+/- 45 days) The Plan of Treatment section includes future care activities for the patient [facility] [place] [facility] This section includes future appointments and future orders which are active, pending or scheduled. Future Appointments This section includes appointments that were scheduled to occur 6 months from the date of the Encounter, up to a maximum of 20 appointments. The data comes from all [place] treatment facilities. Appointment Date/Time Appointment Type Appointme nt Facility Name June 22, 2023 01:30 PM AMBULATORY - MEDICINE [place] [facility] [place] [facility] July 05, 2023 03:00 PM AMBULATORY - PSYCHIATRY [facility] July 06, 2023 01:30 PM AMBULATORY - MEDICINE [place] [facility] [place] [facility] Aug 31, 2023 10:00 AM AMBULATORY - MEDICINE [place] [facility] [place] [facility] Sep 04, 2023 01:30 PM AMBULATORY - PSYCHIATRY [facility] Sep 11, 2023 03:00 PM AMBULATORY - MEDICINE [facility] Sep 13, 2023 08:00 AM AMBULATORY - MEDICINE [place] [facility] [place] [facility] Oct 29, 2023 04:00 PM AMBULATORY - PSYCHIATRY [facility] Nov 07, 2023 02:15 PM AMBULATORY - MEDICINE [facility] Nov 08, 2023 11:00 AM AMBULATORY - MEDICINE [place] [facility] [place] [facility] Nov 09, 2023 01:30 PM [facility] Nov 15, 2023 11:00 AM AMBULATORY - REHAB MEDICIN [facility] Nov 16, 2023 10:30 AM [facility]ONE [facility] Nov 16, 2023 11:00 AM AMBULATORY - NONE [facility] Dec 04, 2023 12:00 PM [facility] Lab Results: +/- 30 days of the encounter This section includes the Chemistry and Hematology Lab Results on record with [place] for the patient. Radiology Reports and Pathology Reports are provided separately, in subsequent sections. Lab Results This section contains the Chemistry/Hematology Results that were resulted 30 days before or 30 daysafter the date of the Encounter. Date/Time Source Result Type Result - Unit Interpretation Reference Range Comment Jun 01, 2023 11:36 AM [facility] HEMOGLOBIN A1C PANEL Specimen Type: BLOOD Comment: [...] Dec 15, 2022 08:49 PM Reporting Lab: [facility] [address] [address] Performing Lab: [facility] [address] [address] HEMOGLOBIN A1C 6.1 H 4.0-5.6 Jun 01, 2023 11:36 AM [facility] LIVER FUNCTION Specimen Type: SERUM No comment entered. Ordering Provider: JESSIE MOSS Report Released Date/Time: Dec 15, 2022 08:49 PM Reporting [facility]: [facility] [address] [address] Performing Lab: [address] [address] PROTEIN,TOTAL 6.6 g/dL 6.0-8.3 ALBUMIN 4.0 g/dL 3.5-5.0 ALKALINE PHOSPHATASE 62 U/L 40-150 AST 18 U/L 5-34 ALT 24 U/L BILIRUBIN, TOTAL 0.5 mg/dL 0.2-1.2 Jun 01, 2023 11:36 AM [facility] CBC Specimen Type: BLOOD No comment entered. Ordering Provider: JESSIE MOSS Report Released Date/Time: Dec 15, 2022 08:49 PM Reporting Lab: [facility] [address] [address] Performing Lab: [facility] [address] [address] WBC 4.19 10*3/uL L 4.50-11.00 RBC 4.32 10*6/uL 3.93-5.16 HGB 11.7 g/dL L 12-15.2 HCT 35.4 L 36.6-45.6 MCV 81.9 fL L 82-99 MCHC 33.1 g/dL 30.8-35.1 PLT 194 10*3/uL 140-360 RDW-CV 13.2 12.0-16.0 MCH 27.1 pg 26.2-32.6 Vital Signs: All taken on the encounter date This section contains inpatient and outpatient Vital Signs collected on the date of the Encounter. Date/Time Temperature Pulse Blood Pressure Respiratory Rate SP02 Pain Height Weight Body Mass Index Source Jun 06, 2023 01:59 PM 77 123/71 98 254 44 [facility] Social History: Smoking Status (Most current) and Tobacco Use (All prior to encounter date) This section includes the most current, and the historical, smoking and tobacco- related health factors from the [place] facility where the Encounter took place. Current Smoking Status This section includes the most current smoking, or tobacco-related health factor, from the [place] facility where the Encounter took place. Date/Time Current Smoking Status Comment Rory nicholas Nov 22, 2020 11:00 AM MT-TOBACCO NEVER USED [facility] Tobacco Use History This section includes a history of the smoking, or tobacco-related health factors, that were collected on or before the date of the Encounter. The data comes from the [place] facility where the Encounter took place. Date/Time Smoking Status/Tobacco Use Comment Barb gonzalez Jan 31, 2018 09:33 AM MT-TOBACCO NEVER USED [facility] May 10, 2017 01:08 PM LIFETIME NON-TOBACCO USER [facility] Mar 02, 2015 09:05 AM LIFETIME NON-TOBACCO USER [facility] July 10, 2001 02:49 PM LIFETIME NON-TOBACCO USER [facility] Encounter Notes: All associated encounter notes This section contains the clinical notes associated to the Encounter. Date/Time Encounter Note(s) Provider Source Jun 06, 2023 02:10 PM PHYSICIAN NOTE: LOCAL TITLE: MD NOTE STANDARD TITLE: PHYSICIAN NOTE DATE OF NOTE: JUN 06, 2023@14:10 ENTRY DATE: JUN 06, 2023@14:10:14 AUTHOR: ELMER RO COSIGNER: URGENCY: STATUS: COMPLETED HISTORY OF PRESENT ILLNESS: first time seen , transferred from Dr Moss INDY KU, is a 58 yo FEMALE [place], with PMH significant for diabetes mellitus type 2, obesity, hypercholesterolemia, high blood pressure(20 years ago-resolved with weight loss), asthma, undifferentiated connective tissue dx, genital herpes ( last outbreak -5 months ago) who presents at the [facility] to meet the new PCP. labs- recenthly done and results were d/w paient today Non- VA providers Active problems - Computerized Problem List is the source for the followin-diabetes mellitus type 2 2-hypercholesterolemia 3-undiferentiated connective tissue dissorder 4-mild anemia The following VA and Non-VA meds were reconciled with patient: Active Outpatient Medications (including Supplies): Issue Date Status Last Fill Active Outpatient Medications Refills Expiration 1) ACCU-CHEK GUIDE (GLUCOSE) TEST STRIP ACTIVE (S) Issu:05-18-23 Qty: 50 for 180 days Sig: USE 1 STRIP Refills: 1 Last:06-17-23 TO TEST BLOOD SUGARS TWO TIMES A WEEK Expr:05-18-24 2) CHOLECALCIF 25MCG (D3-1,000UNIT) TAB ACTIVE Issu:12-15-22 Qty: 100 for 90 days Sig: TAKE ONE Refills: 2 Last:12-16-22 TABLET BY MOUTH ONCE DAILY FOR VITAMIN Expr:12-16-23 SUPPLEMENTATION 3) DICLOFENAC NA 1% TOP GEL Qty: 100 for HOLD Issu:12-15-22 30 days Sig: APPLY 2 GRAMS TOPICALLY Refills: 4 Last:03-31-23 FOUR TIMES DAILY NEEDED FOR Expr:12-16-23 OSTEOARTHRITIS - USE DOSING CARD PROVIDED IN BOX 4) ESCITALOPRAM OXALATE 20MG TAB Qty: 30 ACTIVE Issu:04-20-23 for 30 days Sig: TAKE ONE TABLET BY Refills: 10 Last:05-28-23 MOUTH ONCE DAILY FOR MOOD Expr:04-20-24 5) MELATONIN 3MG CAP/TAB Qty: 60 for 30 ACTIVE Issu:11-20-22 days Sig: TAKE TWO CAPSULE/TABLET BY Refills: 4 Last:04-18-23 MOUTH AT BEDTIME NEEDED -FOR Expr:11-21-23 INSOMNIA 6) METFORMIN HCL 750MG 24HR SA TAB Qty: ACTIVE Issu:12-15-22 180 for 90 days Sig: TAKE TWO TABLETS Refills: 2 Last:12-16-22 BY MOUTH EVERY MORNING Expr:12-16-23 7) NAPROXEN 500MG TAB Qty: 60 for 30 days ACTIVE Issu:12-15-22 Sig: TAKE ONE TABLET BY MOUTH TWICE Refills: 1 Last:04-20-23 DAILY FOR PAIN TAKE WITH FOOD Expr:12-16-23 8) QUETIAPINE FUMARATE 25MG TAB Qty: 120 ACTIVE Issu:04-20-23 for 30 days Sig: TAKE ONE TABLET BY Refills: 4 Last:05-08-23 MOUTH AT BEDTIME NEEDED FOR Expr:04-20-24 ANXIETY. YOU MAY TAKE UP TO THREE ADDITIONAL TABLETS AT BEDTIME IF NEEDED. 9) TRAZODONE HCL 100MG TAB Qty: 60 for 30 ACTIVE Issu:04-20-23 days Sig: TAKE TWO TABLETS BY MOUTH Refills: 5 Last:05-28-23 AT BEDTIME NEEDED FOR INSOMNIA Expr:04-20-24 ASSOCIATED WITH DEPRESSION 10) VALACYCLOVIR HCL 500MG TAB Qty: 30 for ACTIVE Issu:04-02-23 30 days Sig: TAKE ONE TABLET BY MOUTH Refills: 5 Last:04-02-23 ONCE DAILY FOR INFECTION CAUSED BY A Expr:04-02-24 VIRUS Start Date Active Non-VA Medications Refills Expiration 1) Non-VA ALBUTEROL INHALER INHL,ORAL Sig: ACTIVE BY MOUTH NEEDED 2) Non-VA HYDROXYCHLOROQUINE SULFATE 200MG ACTIVE TAB SiMG BY MOUTH TWICE DAILY 12 Total Medications ALLERGIES: ========= [facility] HISTORY: Hemoglobin 11.7 stable, hemoglobin A1c 6.1 and LFTs normal HISTORY: PERIOD OF SERVICE - [facility] [facility] FROM June TO June COMBAT SERVICE INDICATED: No REVIEW OF SYSTEMS: No fever, chills, positive for fatigue No chest pain, shortness of breath or palpitations No cough or wheezing No abdominal pain nausea or vomiting Positive for chronic pain bilateral hands, shoulders on & off No headaches or dizziness PHYSICAL EXAMINATION: WD/obese seems to be in nonacute distress at the moment of examination S1-S2 positive, RRR ALVAREZ, CTA bilateral Abdomen soft nontender to palpation, obese No edema lower extremities AAO x3; ambulates without help ASSESSMENT/PLAN: 1-diabetes mellitus type 2- no glucose level on current labs; HgA1c - 6.1 continue metformin advised to watch her diet and exercise as tolerated just finish the PT for plantar fasciitis last week she started exercising last week She checks her glucose level twice a week before breakfast and usually is between [id number] 2-hypercholesterolemia- based on previous labs continue to watch her diet and continue exercising He was on atorvastatin and simvastatin in the past but he stopped the medications due to myalgias 3-undiferentiated connective tissue dissorder- Managed by [facility] Recent flare , resolving at this time with fatigue and hands and bilateral shoulder pain Naproxen as needed 4-mild anemia- stable, she denies any bleeding signs FOLLOW UP: ========= RTC -f/u in 6 months for dm, hlp, anemia Today's documentation was made using voice recognition software. This note may contain spelling/grammatical errors secondary to this software. Every effort is made to correct errors, but if mistakes are found they need to be taken in context. UPCOMING APPOINTMENTS: 06/22/2023 13:30 CWM/SO/PHARM/PACT 2 07/05/2023 15:00 CWM/SO/VVC/MHC/BERMUDEZ 07/06/2023 13:30 CWM/SO/PHARM/PACT 2 11/14/2023 14:15 CWM/NO/DENTAL/RDH1 PM 01/29/2024 10:30 NHM/OPT/VISUAL IMAGING 01/29/2024 11:00 CWM/NO/OPTOMETRY/BRIONNA No barriers; Patient understands and agrees to current treatment plan. If pt has any questions, concerns, or changes in current health status he/she will call or come in to the VA. Medication Reconciliation: Outpatient: Has the patient been taking medications as documented in the EMLR? YES: The patient has been taking medications as documented in the EMLR. Essential Medication List for Review used to complete this medication reconciliation. INCLUDED IN THIS LIST: Alphabetical list of active outpatient prescriptions dispensed from this VA (local) and dispensed from another VA or DoD facility (remote) as well as inpatient orders (local, pending and active), local clinic medications, locally documented non-VA medications, and local prescriptions that have or been discontinued in the past 90 days. - All changes in medications, including all non-VA/Herbal/OTC medications were entered into CPRS. - If there were any medications the patient should no longer take, they were discontinued. - The patient/caregiver was instructed to update this list, discard old lists, and take this list to the next appointment, whether with a VA or non-VA provider. JLV Link Data on this list may not be complete. Please check JLV. Allergies/ADRs (Tool #5) FACILITY ALLERGY/ADR -------- [facility] [place] [facility] LORAZE[facility]AM [facility] ACETAMINOPHEN/HYDROCODONE [facility] LORAZEPAM [facility] SIMVASTATIN Med Recon Demetrio (Tool #1) INCLUDED IN THIS LIST: Alphabetical list of active outpatient prescriptions dispensed from this [place] (local) and dispensed from another [place] or [facility] facility (remote) as well as inpatient orders (local pending and active), local clinic medications, locally documented non-VA medications, and local prescriptions that have or been discontinued in the past 90 days. Non-VA Meds Last Documented On: July 07, 2019 NOTE The display of VA prescriptions dispensed from another VA or DoD facility (remote) is limited to active outpatient prescription entries matched to National Drug File at the originating site and may not include some items such as investigational drugs, compounds, etc. NOT INCLUDED IN THIS LIST: Medications self-entered by the patient into personal health records (i.e. [employer]) are NOT included in this list. Non-VA medications documented outside this [place], remote inpatient orders (regardless of status) and remote clinic medications are NOT included in this list. The patient and provider must always discuss medications the patient is taking, regardless of where the medication was dispensed or obtained. Non-VA ALBUTEROL INHALER INHL,ORAL INHALE BY MOUTH NEEDED Medication prescribed by Non-VA provider. for URI non -va OUTPT CHOLECALCIF 25MCG (D3-1,000UNIT) TAB (Status = Active) TAKE ONE TABLET BY MOUTH ONCE DAILY FOR VITAMIN SUPPLEMENTATION Rx# [id number] Last Released: 12/19/22 Qty/Days Supply: Rx Expiration Date: 12/16/23 Refills Remainin Indication: FOR VITAMIN D DEFICIENCY Remote DICLOFENAC NA 1% GEL,TOP APPLY 2 GRAMS TO UPPER EXTREMITIES TOPICALLY THREE TIMES DAILY NEEDED FOR PAIN/INFLAMMATION. *DO NOT EXCEED 16 GRAMS DAILY TO ANY JOINT OF LOWER EXTREMITIES. DO NOT EXCEED 8 GRAMS DAILY TO ANY JOINT OF UPPER EXTREMITIES. DO NOT EXCEED TOTAL DOSE OF 32 GRAMS DAILY OVER ALL JOINTS. Last Filled: 04/02/23 (Active at [facility]) Rx Expiration Date: 07/21/23 Days Supply: 30 OUTPT DICLOFENAC NA 1% TOP GEL (Status = On Hold) APPLY 2 GRAMS TOPICALLY FOUR TIMES DAILY NEEDED FOR OSTEOARTHRITIS - USE DOSING CARD PROVIDED IN BOX Rx# [id number] Last Released: 12/19/22 Qty/Days Supply: Rx Expiration Date: 12/16/23 Refills Remainin OUTPT ESCITALOPRAM OXALATE 20MG TAB (Status = Discontinued) TAKE ONE TABLET BY MOUTH ONCE DAILY FOR MOOD Rx# [id number] Last Released: 03/31/23 Qty/Days Supply: Rx Expiration Date: 02/06/24 Refills Remainin OUTPT ESCITALOPRAM OXALATE 20MG TAB (Status = Active) TAKE ONE TABLET BY MOUTH ONCE DAILY FOR MOOD Rx# [id number] Last Released: 05/23/23 Qty/Days Supply: Rx Expiration Date: 04/20/24 Refills Remainin Remote GABAPENTIN 100MG CAP TAKE ONE CAPSULE BY MOUTH AT BEDTIME TO PREVENT SEIZURES OR PAIN Last Filled: 04/02/23 (Active at [facility]) Rx Expiration Date: 07/21/23 Days Supply: 90 Remote HYDROXYCHLOROQUINE SO4 200MG TAB TAKE ONE TABLET BY MOUTH TWICE A DAY Last Filled: 05/02/23 (Active at [facility]) Rx Expiration Date: 12/21/23 Days Supply: 90 Non-VA HYDROXYCHLOROQUINE SULFATE 200MG TAB TAKE ONE TABLET BY MOUTH TWICE DAILY prescribed thr [facility] Remote MAGNESIUM OXIDE 140MG CAP TAKE THREE CAPSULES BY MOUTH DAILY FOR LEG CRAMP Last Filled: 07/21/22 (Active at [facility]) Rx Expiration Date: 07/21/23 Days Supply: 90 OUTPT MELATONIN 3MG CAP/TAB (Status = Active) TAKE TWO CAPSULE/TABLET BY MOUTH AT BEDTIME NEEDED -FOR INSOMNIA Rx# [id number] Last Released: 04/20/23 Qty/Days Supply: 60/30 Rx Expiration Date: 11/21/23 Refills Remainin OUTPT METFORMIN HCL 750MG 24HR SA TAB (Status = Active) TAKE TWO TABLETS BY MOUTH EVERY MORNING Rx# [id number] Last Released: 12/19/22 Qty/Days Supply: 180/90 Rx Expiration Date: 12/16/23 Refills Remainin Indication: FOR TYPE 2 DIABETES MELLITUS OUTPT NAPROXEN 500MG TAB (Status = Active) TAKE ONE TABLET BY MOUTH TWICE DAILY FOR PAIN TAKE WITH FOOD Rx# [id number] Last Released: 04/21/23 Qty/Days Supply: 60/30 Rx Expiration Date: 12/16/23 Refills Remainin Indication: FOR PAIN OUTPT QUETIAPINE FUMARATE 25MG TAB (Status = Discontinued) TAKE ONE TABLET BY MOUTH AT BEDTIME NEEDED ANXIETY; MAY TAKE AN ADDITIONAL TWO TABLETS AT BEDTIME IF NEEDED (FOR MAXIMUM OF 75 MG AT BEDTIME Rx# [id number] Last Released: 03/19/23 Qty/Days Supply: 90/30 Rx Expiration Date: 02/06/24 Refills Remainin OUTPT QUETIAPINE FUMARATE 25MG TAB (Status = Discontinued) TAKE ONE TABLET BY MOUTH AT BEDTIME NEEDED FOR ANXIETY. YOU MAY TAKE UP TO THREE ADDITIONAL TABLETS AT BEDTIME IF NEEDED. Rx# [id number] Last Released: 04/12/23 Qty/Days Supply: 120/30 Rx Expiration Date: 03/30/24 Refills Remainin Indication: FOR BIPOLAR DEPRESSION OUTPT QUETIAPINE FUMARATE 25MG TAB (Status = Active) TAKE ONE TABLET BY MOUTH AT BEDTIME NEEDED FOR ANXIETY. YOU MAY TAKE UP TO THREE ADDITIONAL TABLETS AT BEDTIME IF NEEDED. Rx# [id number] Last Released: 05/01/23 Qty/Days Supply: 120/30 Rx Expiration Date: 04/20/24 Refills Remainin Indication: FOR BIPOLAR DEPRESSION OUTPT TRAZODONE HCL 100MG TAB (Status = Discontinued) TAKE TWO TABLETS BY MOUTH AT BEDTIME NEEDED FOR INSOMNIA ASSOCIATED WITH DEPRESSION Rx# [id number] Last Released: 04/21/23 Qty/Days Supply: Rx Expiration Date: 11/21/23 Refills Remainin Indication: FOR INSOMNIA ASSOCIATED WITH DEPRESSION OUTPT TRAZODONE HCL 100MG TAB (Status = Active) TAKE TWO TABLETS BY MOUTH AT BEDTIME NEEDED FOR INSOMNIA ASSOCIATED WITH DEPRESSION Rx# [id number] Last Released: 05/23/23 Qty/Days Supply: Rx Expiration Date: 04/20/24 Refills Remainin Indication: FOR INSOMNIA ASSOCIATED WITH DEPRESSION OUTPT VALACYCLOVIR HCL 1GM TAB (Status = Discontinued) TAKE ONE TABLET BY MOUTH ONCE DAILY FOR INFECTION CAUSED BY A VIRUS Rx# [id number] Last Released: 03/22/23 Qty/Days Supply: Rx Expiration Date: 03/21/24 Refills Remainin Indication: FOR INFECTION CAUSED BY A VIRUS OUTPT VALACYCLOVIR HCL 500MG TAB (Status = Active) TAKE ONE TABLET BY MOUTH ONCE DAILY FOR INFECTION CAUSED BY A VIRUS Rx# [id number] Last Released: 04/06/23 Qty/Days Supply: Rx Expiration Date: 04/02/24 Refills Remainin Indication: FOR INFECTION CAUSED BY A VIRUS SUPPLIES OUTPT ACCU-CHEK GUIDE (GLUCOSE) TEST STRIP (Status = Discontinued) USE 1 STRIP TO TEST BLOOD SUGARS EVERY OTHER DAY [NEW VERSION OF TEST STRIP - USE WITH GUIDE ME METER] Rx# [id number] Last Released: 12/19/22 Qty/Days Supply: 50/180 Rx Expiration Date: 12/16/23 Refills Remainin Indication: DIABETES OUTPT ACCU-CHEK GUIDE (GLUCOSE) TEST STRIP (Status = Discontinued) USE 1 STRIP TO TEST BLOOD SUGARS EVERY OTHER DAY [NEW VERSION OF TEST STRIP - USE WITH GUIDE ME METER] Rx# [id number] Last Released: Qty/Days Supply: 50/180 Rx Expiration Date: 03/28/24 Refills Remainin Indication: DIABETES OUTPT ACCU-CHEK GUIDE (GLUCOSE) TEST STRIP (Status = Active/Suspended) USE 1 STRIP TO TEST BLOOD SUGARS TWO TIMES A WEEK Rx# [id number] Last Released: Qty/Days Supply: 50/180 Rx Expiration Date: 05/18/24 Refills Remainin /farhan/ ELMER RO MD PRIMARY CARE PHYSICIAN Signed: 06/06/2023 14:48 ELMER RO [facility] Jun 06, 2023 02:00 PM PREVENTIVE MEDICIN E NURSING NOTE: LOCAL TITLE: CLINICAL REMINDERS/NURSING STANDARD TITLE: PREVENTIVE MEDICINE NURSING NOTE DATE OF NOTE: JUN 06, 2023@14:00 ENTRY DATE: JUN 06, 2023@14:00:28 AUTHOR: RYLAND DE LEON COSIGNER: URGENCY: STATUS: COMPLETED Advance Directive Screen MH AD: Patient does not have a completed advance directive on file at any facility, [facility] or outside. S/he is not interested in completing one at this time. The patient received education about Advance Directives and written notification of his/her rights. Pneumococcal Conjugate Vaccine (PCV15/PCV20): Refuses PCV vaccine Immunization: PNEUMOCOCCAL CONJUGATE, UNSPECIFIED FORMULATION Refusal Reason: PATIENT DECISION Patient refuses all immunization(s) in the PneumoPCV group Date Documented: 06/06/23 14:00 Influenza Immunization: The patient has received the seasonal influenza vaccine for the current season at another location. Documented: INFLUENZA, UNSPECIFIED FORMULATION Historical Date Administered: Nov 2022 Exact date unknown Outside Location: Outside Healthcare Provider Information Source: SOURCE UNSPECIFIED COVID-19 Immunization: Defer vaccine, reassess in 1 year Reason: DECLINED RHS Screen: RHS Screen Environmental Check Upon inquiry, the individual reports that the environment is safe to proceed. Informed Consent to Screen and Document The individual consents to proceed with screening. The individual consents to documentation of responses. PRIMARY SCREEN: In the past 12 months, how often did a current or former intimate partner (e.g., boyfriend, girlfriend, , , sexual partner): 1. Scream or curse at you Never 2. Insult or talk down to you Never 3. Threaten you with harm Never 4. Physically hurt you Never 5. Force or pressure you to have sexual contact against your will, or when you were unable to say no Never ?? The HITS tool (items 1-4 above) is [place] copyright protected by Jersey Burgos MD, and the user has full rights to use it throughout the [place] system. PRIMARY SCREEN RESULT: The Primary Screen is NEGATIVE. The individual answered never to all forms of IPV above (i.e., answered never to all 5 items) The individual accepts education and/or resources: No EDUCATION: The individual indicated readiness to learn. Education offered during this session as noted above. The individual indicated understanding by asking relevant questions and making appropriate comments. No barriers to learning were observed or identified. === PROVIDER TO ADDRESS BMI AND MAMMOGRAM AND REST OF THE REMINDERS== /farhan/ RYLAND DE LEON LPN Licensed Practical Nurse Signed: 06/06/2023 14:02 RYLAND DE LEON MANITOU
--- OUTSIDE RECORDS SUMMARY | 2024-03-10 09:13 | XMS_ITS ---
Author Name [facility] [place] [facility] [place] Address [address] [place] [address] Care Team Providers Care House Calls Nurse Practitioner Name Role Phone GARRETT GOOD Primary Care [...] Boykin's Name Patient's Relationship to Policy [facility] [employer] [facility] ORGANIZ HMO Oct 06, 2018 HMO [id number] MEREDITH KU NN PATIENT ANTHEM BCBS CT FEDERAL PREFERRED PROVIDER ORGANIZAT ION (PPO) BASIC FAMIL Y Jan 31, 2015 [id number] [phone] MEREDITH KU NN PATIENT ANTHEM BCBS OF CT (BLUECARD) HIGH DEDUCTIBL E HEALTH PLAN CLINI [facility] & SUP HDHP Oct 06, 2018 [id number] [phone] MEREDITH KU NN PATIENT BCBS [place] HIGH DEDUCTIBL E HEALTH PLAN CLINI [facility] AND [place] HDHP Oct 06, 2018 [id number] [phone] MEREDITH KU NN PATIENT BCBS OF [place] HIGH DEDUCTIBL E HEALTH PLAN CLINI CHRISTINE SUPP HDHP Oct 06, [id number] [phone] DELUISITOLY NN PATIENT BCBS OF [place]/[employer] [facility] CE ORGANIZ CLIN[facility] CH[facility]STINE AND SUPPO RT Oct 06, [id number] [phone] DEMEREDITH JORGE NN PATIENT BCBS OF [facility] PREFERRED PROVIDER ORGANIZAT ION (PPO) BASIC FAMIL Y Jan 31, 2015 [id number] DEHNTAMEKALY NN PATIENT [place] FEPRX PLAN PRESCRIPT ION BCBS FEP Jan 31, 2015 [id number] ELMIRALY NN PATIENT [place]-F EP BCBS PRESCRIPT ION BCBS FEP PLAN Jan 31, 2015 [id number] ELMIRALY NN PATIENT EXPRESS SCRIPTS PRESCRIPT ION HMO Oct 06, 2018 L4TA [id number] DELUISITOLY NN PATIENT EXPRESS SCRIPTS PRESCRIPT ION CLINI [facility] SUPPO RT Sep 19, 2018 L4TA [id number] DELUISITOLY NN PATIENT EXPRESS SCRIPTS ([id number]) PRESCRIPT ION HDHP Oct 06, 2018 L4TA [id number] DEHNEHLY NN PATIENT EXPRESS SCRIPTS ([id number]) PRESCRIPT ION L4TA Oct 06, 2018 L4TA [id number] DEHNEHLY NN PATIENT EXPRESS SCRIPTS ([id number]) PRESCRIPT ION L4TA HDHP Oct 06, 2018 L4TA [id number] DELUISITOLY NN PATIENT EXPRESS SCRIPTS RX PRESCRIPT ION CLINI [facility] SUPPO RT Oct 06, 2018 L4TA [id number] [phone] DEHNEH,LY NN PATIENT [id number] [facility] CE ORGANIZ CLINI [facility] AND SUPPO RT Oct 06, [id number] DEHNTAMEKALY NN PATIENT [id number] [facility] CE ORGANIZ CLINI CHRISTINE AND SUPPO RT Oct 06, [id number] DEHNEH,LY NN PATIENT G210 BCBS ([facility] SUPPO RT Oct 06, [id number] DEHNEH,LY NN PATIENT G210 BCBS ([facility]) [facility] CE ORGANIZ CLINI CHRISTINE AND SUPPO RT Oct 06, [id number] DEHNEH,LY NN PATIENT MEDICARE (WNR) MEDICARE ) PART A Nov 19, 2006 PART A [id number] DEHNEH,LY NN PATIENT MEDICARE (WNR) MEDICARE ) PART A Nov 19, 2006 PART A [id number] DEHNEH,LY NN PATIENT MEDICARE (WNR) MEDICARE ) PART A Nov 19, 2006 PART A [id number] DEHNEH,LY NN PATIENT MEDICARE ([facility]) MEDICARE ) PART B Nov 19, 2006 PART B [id number] DEHNEH,LY NN PATIENT MEDICARE (WNR) MEDICARE ) PART A Nov 19, 2006 PART A [id number] DEHNEH,LY NN PATIENT MEDICARE (WNR) MEDICARE ) PART A Nov 19, 2006 PART A [id number] DEHNEH,LY NN PATIENT MEDICARE (WN) MEDICARE ) PART A Nov 19, 2006 PART A [id number] DEHNEH,LY NN PATIENT MEDICARE (WNR) MEDICARE ) PART A Nov 19, 2006 PART A [id number] [phone] DEHNEH,LY NN PATIENT MEDICARE (WNR) MEDICARE ) PART B Nov 19, 2006 PART B [id number] DEHNEH,LY NN PATIENT Selected Encounter This section includes the information on record at [place] for the Encounter. Date/Time Encounter Type Encounter Description Reason Pro vider Source Jun 05, 2023 11:02 AM Outpatient Encounter PRIMARY CARE/MEDICINE IHE Encounter Template Text not used by [place] Plan of Treatment: Future Appointments (+ 6 months) and Future Tests (+/- 45 days) The Plan of Treatment section includes future care activities for the [facility] [place] [facility] This section includes future appointments and future orders which are active, pending or scheduled. Future Appointments This section includes appointments that were scheduled to occur 6 months from the date of the Encounter, up to a maximum of 20 appointments. The data comes from all [place] treatment facilities. Appointment Date/Time Appointment Type Appointme nt Facility Name Jun 06, 2023 02:00 PM AMBULATORY - MEDICINE [facility] June 22, 2023 01:30 PM [place] [facility] [place] [facility] July 05, 2023 03:00 PM AMBULATORY - PSYCHIATRY [facility] July 06, 2023 01:30 PM [place] [facility] [place] [facility] Aug 31, 2023 10:00 AM [place] [facility] [place] [facility] Sep 04, 2023 01:30 PM AMBULATORY - PSYCHIATRY [facility] Sep 11, 2023 03:00 PM AMBULATORY - MEDICINE [facility] Sep 13, 2023 08:00 AM [place] [facility] [place] [facility] Oct 29, 2023 04:00 PM AMBULATORY - PSYCHIATRY [facility] Nov 07, 2023 02:15 PM AMBULATORY - MEDICINE [facility] Nov 08, 2023 11:00 AM [place] [facility] [place] [facility] Nov 09, 2023 01:30 PM AMBULATORY - MEDICINE [facility] Nov 15, 2023 11:00 AM [facility]ORY - [facility]AB [facility] Nov 16, 2023 10:30 AM AM[place] - NONE [place] [facility] [place] [facility] Nov 16, 2023 11:00 AM AM[place] - NONE [place] [facility] [place] [facility] Dec 04, 2023 12:00 PM [place] [facility] [place] [facility] Lab Results: +/- 30 days of the encounter This section includes the Chemistry and Hematology Lab Results on record with [place] for the patient. Radiology Reports and Pathology Reports are provided separately, in subsequent sections. Lab Results This section contains the Chemistry/Hematology Results that were resulted 30 days before or 30 daysafter the date of the Encounter. Date/Time Source Result Type Result - Unit Interpretation Reference Range Comment Jun 01, 2023 11:36 AM [facility] HEMOGLOBIN A1C PANEL Specimen Type: BLOOD Comment: [...] Dec 15, 2022 08:49 PM Reporting Lab: [address] [id number] Performing Lab: [address] [address] HEMOGLOBIN A1C 6.1 H 4.0-5.6 Jun 01, 2023 11:36 AM [facility] LIVER FUNCTION Specimen Type: SERUM No comment entered. Ordering Provider: JESSIE MOSS Report Released Date/Time: Dec 15, 2022 08:49 PM Reporting Lab: [address] [address] Performing Lab: [address] [address] PROTEIN,TOTAL 6.6 g/dL 6.0-8.3 ALBUMIN 4.0 g/dL 3.5-5.0 ALKALINE PHOSPHATASE 62 U/L 40-150 AST 18 U/L 5-34 ALT 24 U/L BILIRUBIN, TOTAL 0.5 mg/dL 0.2-1.2 Jun 01, 2023 11:36 AM [facility] CBC Specimen Type: BLOOD No comment entered. Ordering Provider: JESSIE MOSS Report Released Date/Time: Dec 15, 2022 08:49 PM Reporting Lab: [address] [address] Performing Lab: [address] [address] WBC 4.19 10*3/uL L 4.50-11.00 RBC 4.32 [...] and tobacco- related health factors from the [place] facility where the Encounter took place. Current Smoking Status This section includes the most current smoking, or tobacco-related health factor, from the [place] facility where the Encounter took place. Date/Time Current Smoking Status Comment Facil ity Aug 11, 2022 02:50 PM [facility] Tobacco Use History This section includes a history of the smoking, or tobacco-related health factors, that were collected on or before the date of the Encounter. The data comes from the [place] facility where the Encounter took place. Date/Time Smoking Status/Tobacco Use Comment F acility Dec 05, 2019 01:53 PM [facility] [place] [facility] May 26, 2016 02:32 PM LIFETIME [facility]ACCO [facility] Encounter Notes: All associated encounter notes This section contains the clinical notes associated to the Encounter. Date/Time Encounter Note(s) Provider Source Jun 05, 2023 11:02 AM ADMINISTRATIVE NOT E: LOCAL TITLE: ADMINISTRATIVE NOTE STANDARD TITLE: ADMINISTRATIVE NOTE DATE OF NOTE: JUN 05, 2023@11:02 ENTRY DATE: JUN 05, 2023@11:03:13 AUTHOR: MANOLO ECHOLS COSIGNER: URGENCY: STATUS: COMPLETED THIS SHUTTLE FINAL INSPECTOR CALLED TO REMIND OF F2F APPT. WITH CWM/SO/PACT EIGHT PROVIDER ON 06/06/2023 AT 2:00PM FOR DIABETES. NO ANSWER, LEFT MESSAGE FOR . /farhan/ DEL ECHOLS ADVANCED NEGOTIATIONS DIRECTOR Signed: 06/05/2023 11:04 DEL ECHOLS [facility]
--- OUTSIDE RECORDS SUMMARY | 2024-03-10 09:14 | XMS_ITS | Encounter Summary ---
Author Name [facility] [facility] [place] [facility] [place] Address [address] [place] [address] Care Team Providers Care Parachute Accessories Attacher Name Role Phone GARRETT GOOD Primary Care [...] Boykin's Name Patient's Relationship to Policy Boykin [facility] CE ORGANIZ HMO Oct 06, 2018 [id number] MEREDITH KU NN PATIENT ANTHEM BCBS CT FEDERAL PREFERRED PROVIDER ORGANIZAT ION (PPO) BASIC FAMIL Y Jan 31, 2015 [id number] MEREDITH KU NN PATIENT ANTHEM BCBS OF CT (BLUECARD) HIGH DEDUCTIBL E HEALTH PLAN CLINI [facility] SUP HDHP Oct 06, 2018 [id number] [phone] MEREDITH KU NN PATIENT BCBS [place] HIGH DEDUCTIBL E HEALTH PLAN [facility] HDHP Oct 06, 2018 [id number] MEREDITH KU NN PATIENT BCBS OF [place] HIGH DEDUCTIBL E HEALTH PLAN CLINI [facility] SUPP HDHP Oct 06, [id number] ATTILATAMEKALY NN PATIENT BCBS OF [place]/FORMERLY [facility] CE ORGANIZ CLINI [facility] AND SUPPO RT Oct 06, [id number] DENEREYDATAMEKALY NN PATIENT BCBS OF [facility] PREFERRED PROVIDER ORGANIZAT ION (PPO) BASIC FAMIL Y Jan 31, 2015 [id number] DENEREYDATAMEKALY NN PATIENT [place] FEPRX PLAN PRESCRIPT ION BCBS FEP Jan 31, 2015 [id number] ELMIARLY NN PATIENT [place]-F EP BCBS PRESCRIPT ION BCBS FEP PLAN Jan 31, 2015 [id number] ATTILATAMEKALY NN PATIENT EXPRESS SCRIPTS PRESCRIPT ION HMO Oct 06, 2018 L4TA [id number] ATTILATAMEKALY NN PATIENT EXPRESS SCRIPTS PRESCRIPT ION CLINI [facility] SUPPO RT Sep 19, 2018 L4TA [id number] DELUISITOLY NN PATIENT EXPRESS SCRIPTS ([id number]) PRESCRIPT ION HDHP Oct 06, 2018 L4TA [id number] DEHNEH,LY NN PATIENT EXPRESS SCRIPTS ([id number]) PRESCRIPT ION L4TA Oct 06, 2018 L4TA [id number] DEHNEH,LY NN PATIENT EXPRESS SCRIPTS ([id number]) PRESCRIPT ION L4TA HDHP Oct 06, 2018 L4TA [id number] DELUISITOLY NN PATIENT EXPRESS SCRIPTS RX PRESCRIPT ION CLINI [facility] SUPPO RT Oct 06, 2018 L4TA [id number] ELMIRA,LY NN PATIENT [id number] [facility] CE ORGANIZ CLINI [facility] AND SUPPO RT Oct 06, 2018 [id number] MEREDITH KU NN PATIENT [id number] [facility] CE ORGANIZ CLINI [facility]STINE AND SUPPO RT Oct 06, [id number] DEHNEH,LY NN PATIENT G210 BCBS ([facility]) [facility] CE ORGANIZ CLINI [facility]INE AND SUPPO RT Oct 06, 2018 [id number] DEHNEH,LY NN PATIENT G210 BCBS ([facility]) [facility] SUPPO RT Oct 06, [id number] DEHNEH,LY NN PATIENT MEDICARE (WN) MEDICARE ) PART A Nov 19, 2006 PART A [id number] DEHNEH,LY NN PATIENT MEDICARE (WNR) MEDICARE ) PART A Nov 19, 2006 PART A [id number] DEHNEH,LY NN PATIENT MEDICARE (WN) MEDICARE ) PART B Nov 19, 2006 PART B [id number] DEHNEH,LY NN PATIENT MEDICARE ([facility]) MEDICARE ) PART A Nov 19, 2006 PART A [id number] DEHNEH,LY NN PATIENT MEDICARE (WNR) MEDICARE () PART A Nov 19, 2006 PART A [id number] DEHNEH,LY NN PATIENT MEDICARE (WN) MEDICARE ) PART A Nov 19, 2006 PART A [id number] DEHNEH,LY NN PATIENT MEDICARE (WNR) MEDICARE ) PART A Nov 19, 2006 PART A [id number] DEHNEH,LY NN PATIENT MEDICARE (WNR) MEDICARE ) PART A Nov 19, 2006 PART A [id number] [phone] DEHNEH,LY NN PATIENT MEDICARE (WNR) MEDICARE () PART B Nov 19, 2006 PART B [id number] [phone] DEHNEH,LY NN PATIENT Selected Encounter This section includes the information on record at [place] for the Encounter. Date/Time Encounter Type Encounter Description Reason Provider Source June 22, 2023 01:30 PM CONT GLUC MNTR PHYS/QHP EQP CLINICAL PHARMACY ICD-10-CM E11.9 Type 2 diabetes mellitus without complications MULLINS,IZABE LA A [facility] Encounter Template Text not used by [facility] Assessments - Encounter Diagnoses This section includes the primary and secondary diagnoses documented for the Encounter. Date/Time Primary/Secondary Diagnosis Diagnosis Name Provider Source June 24, 2023 05:37 PM PRIMARY Type 2 diabetes mellitus without complications BILL MULLINS [facility] Plan of Treatment: Future Appointments (+ 6 months) and Future Tests (+/- 45 days) The Plan of Treatment section includes future care activities for the patient [facility] [place] [facility] This section includes future appointments and future orders which are active, pending or scheduled. Future Appointments This section includes appointments that were scheduled to occur 6 months from the date of the Encounter, up to a maximum of 20 appointments. The data comes from all [place] treatment facilities. Appointment Date/Time Appointment Type Appointme nt Facility Name July 05, 2023 03:00 PM AMBULATORY - PSYCHIATRY [facility] July 06, 2023 01:30 PM AMBULATORY [place]ICINE [place] [facility] [place] [facility] Aug 31, 2023 10:00 AM AMBULATORY - MEDICINE [place] [facility] [place] [facility] Sep 04, 2023 01:30 PM AMBULATORY - PSYCHIATRY [facility] Sep 11, 2023 03:00 PM AMBULATORY - MEDICINE [facility] Sep 13, 2023 08:00 AM AMBULATORY - MEDICINE [place] [facility] [place] [facility] Oct 29, 2023 04:00 PM AMBULATORY - PSYCHIATRY [facility] Nov 07, 2023 02:15 PM AMBULATORY - MEDICINE [facility] Nov 08, 2023 11:00 AM AMBULATORY - MEDICINE [place] [facility] [place] [facility] Nov 09, 2023 01:30 PM [facility] Nov 15, 2023 11:00 AM AMBULATORY - REHAB MEDICIN [facility] Nov 16, 2023 10:30 AM AMBULATORY - NONE [facility] [place] [facility] Nov 16, 2023 11:00 AM AMBULATORY - NONE [facility] [place] [facility] Dec 04, 2023 12:00 PM AMBULATORY - MEDICINE [place] [facility] [place] [facility] Lab Results: +/- 30 days of [...] Range Comment Jun 01, 2023 11:36 AM [facility] HEMOGLOBIN A1C PANEL Specimen Type: BLOOD Comment: [...] Dec 15, 2022 08:49 PM Reporting Lab: [address] [address] Performing Lab: [address] [address] HEMOGLOBIN A1C 6.1 H 4.0-5.6 Jun 01, 2023 11:36 AM [facility] LIVER FUNCTION Specimen Type: SERUM No comment entered. Ordering Provider: JESSIE MOSS Report Released Date/Time: Dec 15, 2022 08:49 PM Reporting Lab: [address] [address] Performing Lab: [address] [address] PROTEIN,TOTAL 6.6 g/dL 6.0-8.3 ALBUMIN 4.0 g/dL 3.5-5.0 ALKALINE PHOSPHATASE 62 U/L 40-150 AST 18 U/L 5-34 ALT 24 U/L BILIRUBIN, TOTAL 0.5 mg/dL 0.2-1.2 Jun 01, 2023 11:36 AM [facility] CBC Specimen Type: BLOOD No comment entered. Ordering Provider: JESSIE MOSS Report Released Date/Time: Dec 15, 2022 08:49 PM Reporting Lab: [address] [address] Performing Lab: [address] [address] WBC 4.19 10*3/uL L 4.50-11.00 RBC 4.32 [...] Rory nicholas Nov 22, 2020 11:00 AM [place]-TOBACCO NEVER USED [facility] Tobacco Use History This section includes a history of the smoking, or tobacco-related health factors, that were collected on or before the date of the Encounter. The data comes from the [place] facility where the Encounter took place. Date/Time Smoking Status/Tobacco Use Comment F acility Jan 31, 2018 09:33 AM [place]-TOBACCO NEVER USED [facility] May 10, 2017 01:08 PM LIFETIME NON-TOBACCO USER [facility] Mar 02, 2015 09:05 AM LIFETIME NON-TOBACCO USER [facility] July 10, 2001 02:49 PM LIFETIME NON-TOBACCO USER [facility] Encounter Notes: All associated encounter notes This section contains the clinical notes associated to the Encounter. Date/Time Encounter Note(s) Provider Source June 22, 2023 03:04 PM PHARMACY OUTPATIEN T NOTE: LOCAL TITLE: PHARMACY CLINIC NOTE STANDARD TITLE: PHARMACY OUTPATIENT NOTE DATE OF NOTE: JUNE 22, 2023@15:04 ENTRY DATE: JUNE 22, 2023@15:04:47 AUTHOR: JEFFREY MULLINS EXP COSIGNER: URGENCY: STATUS: COMPLETED Patient Name: INDY KU was seen via [facility] for follow-up for diabetes management treatment. : Dec Age: 58 Sex: FEMALE Race: WHITE Subjective: Pt presents for messi pro placement. She states she already started lifestyle changes and continues to loose weight, etc. Per prev: Pt presents for an initial visit w/ PCP. [...] of her dtr. Pt previously worked in [employer] - has negative opinion about [facility] and [facility] workers. Pt is health care literate. Target Goals: A1C: 7%; FB-130 mg/dL; 2HRS PP <180mg/dL. Allergies: ATIVAN PERTINENT INFORMATION: Active problems - Computerized Problem List is the source for the followin. Diabetes Mellitus Type 2 ([facility] [id number]) 2. Hyperlipidemia ([facility] 50943407) 3. Anemia ([facility] 022018603) 4. Venous thrombosis 5. Recurrent genital herpes simplex 6. Connective tissue disease 7. Osteoarthritis 8. Binge eating disorder 9. Tendinitis 10. Type II diabetes mellitus 11. Cholelithiasis 12. Myalgia * 13. Laparoscopy, Surgical, Appendectomy 14. Calcifying tendinitis of shoulder 15. Tendinitis * 16. Screening Mammogram for Malignant Neoplasms of the Breast, other 17. Recurrent major depression ([facility] 15480760) 18. Attention-Deficit/Hyperactivity Disorder NOS 19. Obesity ([facility] CT 148295539) 20. Chronic post-traumatic stress disorder ([facility]OM[facility] CT 605296323) 21. Fracture 22. Mastodynia * 23. ACCRETIONS ON TEETH 24. UNSPECIFIED DENTAL CARIES 25. Hysterectomy 26. Diabetes Mellitus Type II or unspecified 27. Hypercholesterolemia 28. Other and unspecified ovarian cyst 29. Temporomandibular Joint Syndrome 30. Complete External Hemorrhoidectomy 31. Asthma 32. HTN 33. Anemia Objective: Diabetes Medication Regimen: - Metformin SA 1500 MG DAILY Previous DM Medications: NONE Adherence: Oral meds: denies missed doses Insulin: denies missed doses Labs: HEMOGLOBIN A1C TREND Collection DT Spec HGBA1c 06/01/2023 11:36 BLOOD 6.1 H 12/08/2022 11:18 BLOOD 6.0 H 08/04/2022 09:22 BLOOD 5.7 H 10/17/2021 11:35 BLOOD 5.7 H 05/23/2021 10:56 BLOOD 6.1 H CBC TREND Collection DT Spec WBC RBC HGB HCT MCV MCH PLT 06/01/2023 11:36 BLOOD 4.19 L 4.32 11.7 L 35.4 L 81.9 L 27.1 194 10/17/2021 11:35 BLOOD 5.07 4.41 11.8 L 36.4 L 82.5 26.8 221 11/28/2019 11:05 BLOOD 4.75 4.34 11.8 L 36.1 L 83.2 27.2 201 05/31/2018 10:54 BLOOD 4.16 L 4.21 11.1 L 35.0 L 83.1 26.4 220 01/31/2018 09:38 BLOOD 8.57 4.37 11.2 L 35.1 L 80.3 L 25.6 L 198 CHEM 7 TREND LAB CUMULATIVE SELECTED Collection [...] uIU/mL 0.35 - 5.00 02/10/2021 10:31 SERUM Free T4 SR-REF 0.93 ng/dL 0.6 - 1.6 VITAMIN D 25-OH Collection DT Specimen Test Name Result Units Ref Range 04/05/2021 09:45 SERUM VITAMIN D (25-OH) 32 ng/mL 20 - 50 SrCr (last 6 weeks): CREATININE-EGFR - NONE FOUND CRCL IBW: CrCl(est): 84.0 mL/min (Creat:0.84 12/08/22) CRCL ACT: No Creat CRCL ADJ: 84.0 mL/min (12/08/22) lft's: wnl on 05/2023 Vitals: Weight (BMI): 254 lb [115.21 kg] (06/06/2023 13:59) Height: 64 in [162.6 cm] (12/09/2019 11:16) BMI: 43.7 Active and Recently Outpatient Medications (including Supplies): Active Outpatient Medications Status Active Outpatient Medications (including Supplies): ACCU-CHEK GUIDE (GLUCOSE) TEST STRIP USE 1 STRIP TO TEST ACTIVE BLOOD SUGARS TWO TIMES A WEEK CHOLECALCIF 25MCG (D3-1,000UNIT) TAB TAKE ONE TABLET [...] 200MG BY MOUTH ACTIVE TWICE DAILY MEDICATION RECONCILIATION:done BLOOD GLUCOSE MONITORING Pt did not bring the meter to the visit. NUTRITION Diet Patterns: patient eats on avg. x/day: B: [place] oatmeal or nito donuts - bagel w/ cream cheese and donut L:grilled chicken on top of salad ; light nepali + fruit or burger rebekah - zena [...] weight weight on 05/18/23 => 256.2 lbs weight on 05/2023 => 254 lbs goal weight : 217 lbs ASSESSMENT/PLAN: Per prev notes: Pt has a lengthy history and is very savvy in terms of health care knowledge and medication knowledge. Informed the pt of current shortage of GLP-1 and inability to start pt on agents such as ozempic for weight loss purposes. Discussed the options w/ : both Qsymia and Orlistat. Pt is not interested in either. Pt is not interested in MOVE program of fit vet program. Pt states she was close to bariatric surgery twice and she changed her mind last minute. From DM perspective recommed to place messi pro in June to evaluate where pt [...] is willing to start. Return to place messi pro in June. Date: 06/22/23: messi pro has been placed on pt's left arm: SN:[id number] EXP: 10/20/23 ALL INFORMATIONON MESSI PRO EXPLAINED TO PT. ALL QUESTIONS ANSWERED. FOOD LOG GIVEN TO FILL OUT FOR THE NEXT 14 DAYS. SENSOR APPLICATION: *area on back of either of patient's upper arms Area to be selected and cleansed with alcohol wipe/area allowed time to dry *sensor codes on sensor pack and sensor applicator match *sensor applicator prepared per manufacturing directions *sensor applied to skin per manufacturing directions START NEW SENSOR: *start sensor with reader and when prompted after two minutes reverify sensor is working by again holding the reader within 1.5 inces of the sensor WEAR TIME: *sensor is to be worn for 14 days/sensor will automatically stop collecting glucose readings after 14 days INSTRUCTIONS: *Patient to not inject insulin closer than 1 inch proximation to sensor *Patient may shower or swim for up to 30 minutes and up to a 3ft depth *sensor to be removed prior to exposure to any x-ray machine, including MRI and CT scan *taking ascorbic acid(vitamin C) may falsely raise sensor readings and salicylic acid(used in some pain relievers)may slighterly lower sensor readings *INSTRUCTED TO COMPLETE 14 DAY DAILY LOG SHEET After this clinical writer placed a messi pro on pt's arm- pt started to share w/ clinical writer that this is likely a waste of time since she has already started to diet and started to loose weight. She was very honest about seeking ozempic only to improve her weight loss. This clinical writer explained to the again that GLP-1 shortage continues and [place] currently does not approve any new starts for weight loss only. Pt kept repeating the [facility] protocol . This clinical writer strongly encouraged pt to return for f/up visit as she can learn a great deal from the messi pro report. Discussed the recently repeated A1C which is wnl at 6.1% f/up in 2 weeks. DIABETES A1c is below goal of <7% - Medication management Diabetes [...] of Preventive Care: Most recent visit to ground water technician:@[facility] will schedule Most recent visit to optometry:@[facility] : 2. Type 2 diabetes without retinopathy or CSME OU last visit Clinic's Next Scheduled Follow-up: 06/22/23 - messi pro placement 07/06/23 messi pro removal No barriers; Patient understands and agrees to current treatment plan. If he has any questions, concerns, or changes in current health status he will call or come in to the [facility]. FUTURE APPOINTMENTS: 07/05/2023 15:00 CWM/SO/VVC/MHC/BERMUDEZ 07/06/2023 13:30 CWM/SO/PHARM/PACT 2 11/14/2023 14:15 CWM/NO/DENTAL/RDH1 PM 12/04/2023 13:30 CWM/SO/PACT EIGHT 01/29/2024 10:30 NHM/OPT/VISUAL IMAGING 01/29/2024 11:00 CWM/NO/OPTOMETRY/BRIONNA DM type is :T2D Length of Visit: 25minutes PBM PharmD Pharmacotherapy Rem V12: PHARMACIST INTERVENTIONS: TYPE 2 DIABETES MELLITUS Medication monitoring, no dosage change required, continue to monitor and assess /farhan/ JEFFREY MULLINS CLINICAL DOWEL PIN MAN Signed: 06/24/2023 17:37 Receipt Acknowledged By: 06/26/2023 13:03 /farhan/ ELMER RO MD PRIMARY CARE PHYSICIAN JEFFREY MULLINSFIELD
--- OUTSIDE RECORDS SUMMARY | 2024-03-10 09:15 | XMS_ITS | Encounter Summary ---
Author Name [place] Address [address] [place] [address] Care Team Providers Care Excavator Operator Name Role Phone GARRETT GOOD Primary Care [...] Patient's Relationship to Policy Boykin [facility] CE ORGANIZ HMO Oct 06, 2018 O [id number] MEREDITH KU NN PATIENT ANTHEM BCBS CT FEDERAL PREFERRED PROVIDER ORGANIZAT ION (PPO) BASIC FAMIL Y Jan 31, 2015 [id number] MEREDITH KU NN PATIENT ANTHEM BCBS OF CT (BLUECARD) HIGH DEDUCTIBL E HEALTH PLAN CLINI [facility] HDHP Oct 06, 2018 [id number] MEREDITH KU NN PATIENT BCBS [place] HIGH DEDUCTIBL E HEALTH PLAN CLINI [facility] [place] HDHP Oct 06, 2018 [id number] MEREDITH KU NN PATIENT BCBS OF [place] HIGH DEDUCTIBL E HEALTH PLAN CLINI [facility] SUPP HDHP Oct 06, [id number] DELUISITOLY NN PATIENT BCBS OF [place]/[facility] CE ORGANIZ CLINI [facility] SUPPO RT Oct 06, [id number] [phone] DELUISITOLY NN PATIENT BCBS OF [facility] PREFERRED PROVIDER ORGANIZAT ION (PPO) BASIC FAMIL Y Jan 31, 2015 [id number] DELUISITOLY NN PATIENT [place] FEPRX PLAN PRESCRIPT ION BCBS FEP Jan 31, 2015 [id number] ELMIRALY NN PATIENT CAREMARK-F EP BCBS PRESCRIPT ION BCBS FEP PLAN Jan 31, 2015 [id number] ELMIRALY NN PATIENT EXPRESS SCRIPTS PRESCRIPT ION HMO Oct 06, 2018 L4TA [id number] DELUISITOLY NN PATIENT EXPRESS SCRIPTS PRESCRIPT ION [facility] Sep 19, 2018 L4TA [id number] DELUISITOLY NN PATIENT EXPRESS SCRIPTS ([id number]) PRESCRIPT ION [facility] Oct 06, 2018 L4TA [id number] DEHNEHLY NN PATIENT EXPRESS SCRIPTS ([id number]) PRESCRIPT ION L4TA Oct 06, 2018 L4TA [id number] DEHNEHLY NN PATIENT EXPRESS SCRIPTS ([id number]) PRESCRIPT ION L4TA HD Oct 06, 2018 L4TA [id number] DEHNTAMEKALY NN PATIENT EXPRESS SCRIPTS RX PRESCRIPT ION [facility] RT Oct 06, 2018 L4TA [id number] DEHNEH,LY NN PATIENT [id number] [facility] CE ORGANIZ CLINI [facility] AND SUPPO RT Oct 06, [id number] DELUISITOLY NN PATIENT [id number] [facility] CE ORGANIZ CLINI CH[facility]STINE AND SUPPO RT Oct 06, [id number] DEHNEH,LY NN PATIENT G210 BCBS ([facility]) [facility] CE ORGANIZ CLINI [facility] SUPPO RT Oct 06, [id number] DEHNEH,LY NN PATIENT G210 BCBS ([facility]O RT Oct 06, [id number] DEHNEH,LY NN PATIENT MEDICARE (WNR) MEDICARE () PART A Nov 19, 2006 PART A [id number] DEHNEH,LY NN PATIENT MEDICARE (WNR) MEDICARE () PART A Nov 19, 2006 PART A [id number] DEHNEH,LY NN PATIENT MEDICARE (WNR) MEDICARE () PART B Nov 19, 2006 PART B [id number] DEHNEH,LY NN PATIENT MEDICARE (WNR) MEDICARE () PART A Nov 19, 2006 PART A [id number] DEHNEH,LY NN PATIENT MEDICARE (WNR) MEDICARE () PART A Nov 19, 2006 PART A [id number] DEHNEH,LY NN PATIENT MEDICARE (WNR) MEDICARE () PART A Nov 19, 2006 PART A [id number] DEHNEH,LY NN PATIENT MEDICARE (WNR) MEDICARE () PART A Nov 19, 2006 PART A [id number] [phone] DEHNEH,LY NN PATIENT MEDICARE (WNR) MEDICARE () PART A Nov 19, 2006 PART A [id number] [phone] DEHNEH,LY NN PATIENT MEDICARE (WNR) MEDICARE () PART B Nov 19, 2006 PART B [id number] DEHNEH,LY NN PATIENT Selected Encounter This section includes the information on record at [facility] for the [facility]counter. Date/Time Encounter Type Encounter Description Reason Pro vider Source Aug 31, 2023 03:53 PM Outpatient Encounter ENDOCRINOLOGY IHE Encounter Template Text not used by [facility] Plan of Treatment: Future Appointments (+ 6 months) and Future Tests (+/- 45 days) The Plan of Treatment section includes future care activities for the [facility] This section includes future appointments and future orders which are active, pending or scheduled. Future Appointments This section includes appointments that were scheduled to occur 6 months from the date of the Encounter, up to a maximum of 20 appointments. The data comes from all [facility] treatment [facility]. Appointment Date/Time Appointment Type Appointme nt Facility Name Sep 04, 2023 01:30 PM AMBULATORY - PSYCHIATRY [facility] Sep 11, 2023 03:00 PM AMBULATORY - MEDICINE [facility] Sep 13, 2023 08:00 AM AMBULATORY - MEDICINE [facility] [place] [facility] Oct 29, 2023 04:00 PM AMBULATORY - PSYCHIATRY [facility] Nov 07, 2023 02:15 PM AMBULATORY - MEDICINE [facility] Nov 08, 2023 11:00 AM AMBULATORY [facility] MEDICINE [facility] [place] [place] [facility] Nov 09, 2023 01:30 PM AMBULATORY - MEDICINE [facility] Nov 15, 2023 11:00 AM AMBULATORY - REHAB MEDICIN [facility] Nov 16, 2023 10:30 AM AMBULATORY - NONE [place] [facility] [place] [place] [facility] Nov 16, 2023 11:00 AM AMBULATORY - NONE [facility] [place] [facility] Dec 04, 2023 12:00 PM AMBULATORY - MEDICINE [facility] [place] [facility] Dec 27, 2023 09:30 AM AMBULATORY - MEDICINE [facility] [place] [facility] Feb 05, 2024 09:30 AM AMBULATORY - MEDICINE [facility] C [facility] [place] [facility] Feb 22, 2024 01:00 PM AMBULATORY - MEDICINE [facility] Feb 25, 2024 01:00 PM AMBULATORY - MEDICINE [facility] [place] [facility] Feb 25, 2024 03:00 PM AMBULATORY - PSYCHIATRY [facility] Vital Signs: All taken on the encounter date This section contains inpatient and outpatient Vital Signs collected on the date of the Encounter. Date/Time Temperature Pulse Blood Pressure Respiratory Rate SP02 Pain Height Weight Body Mass Index Source Aug 31, 2023 10:07 AM 254.8 44 [facility] [place] [facility] Social History: Smoking Status (Most current) and Tobacco Use (All prior to encounter date) This section includes the most current, and the historical, smoking and tobacco- related health factors from the [place] facility where the Encounter took place. Current Smoking Status This section includes the most current smoking, or tobacco-related health factor, from the [place] facility where the Encounter took place. Date/Time Current Smoking Status Comment Facil ity Aug 11, 2022 02:50 PM [facility]-TOBACCO [facility] USED [facility] Tobacco Use History This section includes a history of the smoking, or tobacco-related health factors, that were collected on or before the date of the Encounter. The data comes from the [place] facility where the Encounter took place. Date/Time Smoking Status/Tobacco Use Comment F acility Dec 05, 2019 01:53 PM VA-TOBACCO NEVER USED CT [facility]TR [facility] [facility] May 26, 2016 02:32 PM LIFETIME NON-TOBACCO USER [facility] Encounter Notes: All associated encounter notes This section contains the clinical notes associated to the Encounter. Date/Time Encounter Note(s) Provider Source Sep 03, 2023 12:17 PM ADDENDUM: LOCAL TITLE: Addendum STANDARD TITLE: ADDENDUM DATE OF NOTE: SEP 03, 2023@12:17:24 ENTRY DATE: SEP 03, 2023@12:17:25 AUTHOR: ELMER RO EXP COSIGNER: URGENCY: STATUS: COMPLETED Please see the comment from Dr. Tan. Thank you /farhan/ ELMER RO MD PRIMARY CARE PHYSICIAN Signed: 09/03/2023 12:17 Receipt Acknowledged By: 09/04/2023 15:55 /farhan/ JEFFREY MULLINS CLINICAL FISHER ====== --- Original Document --- 08/31/23 NOTE: PCP kindly be sure pt is aware that we cannot prescribe GLP1 for weight loss, only for diabetes with CAD or renal disease. Thank you. /farhan/ RHYS TAN MD STAFF PHYSICIAN Signed: 08/31/2023 15:54 Receipt Acknowledged By: 09/03/2023 12:16 /farhan/ ELMER RO MD PRIMARY CARE PHYSICIAN [facility] [place] [facility] Aug 31, 2023 03:53 PM PHYSICIAN NOTE: LOCAL TITLE: MD NOTE STANDARD TITLE: PHYSICIAN NOTE DATE OF NOTE: AUG 31, 2023@15:53 ENTRY DATE: AUG 31, 2023@15:53:36 AUTHOR: RHYS TAN EXP COSIGNER: URGENCY: STATUS: COMPLETED MD NOTE Has ADDENDA PCP kindly be sure pt is aware that we cannot prescribe GLP1 for weight loss, only for diabetes with CAD or renal disease. Thank you. /farhan/ RHYS TAN MD STAFF PHYSICIAN Signed: 08/31/2023 15:54 Receipt Acknowledged By: 09/03/2023 12:16 /farahn/ ELMER RO MD PRIMARY CARE PHYSICIAN 09/03/2023 ADDENDUM STATUS: COMPLETED Please see the comment from Dr. Tan. Thank you /farhan/ ELMER RO MD PRIMARY CARE PHYSICIAN Signed: 09/03/2023 12:17 Receipt Acknowledged By: * AWAITING SIGNATURE * JEFFREY MULLINS ALICE [facility]
--- OUTSIDE RECORDS SUMMARY | 2024-03-10 09:15 | XMS_ITS | Encounter Summary ---
Author Name [place] Address [address] [place] [address] Care Team Providers Care Sales Clerk Food Name Role Phone GARRETT GOOD Primary Care [...] Boykin's Name Patient's Relationship to Policy Boykin [facility] CE ORGANIZ HMO Oct 06, 2018 HMO [id number] [phone] MEREDITH KU NN PATIENT ANTHEM BCBS CT FEDERAL PREFERRED PROVIDER ORGANIZAT ION (PPO) BASIC FAMIL Y Jan 31, 2015 [id number] MEREDITH KU NN PATIENT ANTHEM BCBS OF CT (BLUECARD) HIGH DEDUCTIBL E HEALTH PLAN CLINI [facility]P HDHP Oct 06, 2018 [id number] MEREDITH KU NN PATIENT BCBS [place] HIGH DEDUCTIBL E HEALTH PLAN CLINI [facility] [place] HDHP Oct 06, 2018 [id number] [phone] MEREDITH KU NN PATIENT BC[place] HIGH DEDUCTIBL E HEALTH PLAN CLINI [facility] SUPP HDHP Oct 06, 2018 [id number] [phone] ATTILATAMEKALY NN PATIENT [place]BS OF [place] CE ORGANIZ CLINI [facility]INE AND SUPPO RT Oct 06, [id number] [phone] DEHNTAMEKALY NN PATIENT BCBS OF [facility] PREFERRED PROVIDER ORGANIZAT ION (PPO) BASIC FAMIL Y Jan 31, 2015 [id number] DELUISITOLY NN PATIENT [place] FEPRX PLAN PRESCRIPT ION BCBS FEP Jan 31, 2015 [id number] ELMIRALY NN PATIENT CAREMARK-F EP BCBS PRESCRIPT ION BCBS FEP PLAN Jan 31, 2015 [id number] ELMIRALY NN PATIENT EXPRESS SCRIPTS PRESCRIPT ION HMO Oct 06, 2018 L4TA [id number] DENEREYDATAMEKALY NN PATIENT EXPRESS SCRIPTS PRESCRIPT ION [facility] RT Sep 19, 2018 L4TA [id number] DELUISITOLY NN PATIENT EXPRESS SCRIPTS ([id number]) PRESCRIPT ION HDHP Oct 06, 2018 L4TA [id number] DEHNTAMEKALY NN PATIENT EXPRESS SCRIPTS ([id number]) PRESCRIPT ION L4TA Oct 06, 2018 L4TA [id number] DEHNEHLY NN PATIENT EXPRESS SCRIPTS ([id number]) PRESCRIPT ION L4TA HDHP Oct 06, 2018 L4TA [id number] DELUISITOLY NN PATIENT EXPRESS SCRIPTS RX PRESCRIPT ION [facility] RT Oct 06, 2018 L4TA [id number] DELUISITO,LY NN PATIENT [id number] [facility] CE ORGANIZ CLINI CHRISTINE AND SUPPO RT Oct 06, [id number] ELMIRALY NN PATIENT [id number] [facility] CE ORGANIZ CLIN[facility] AND SUPPO RT Oct 06, [id number] DEHNEH,LY NN PATIENT G210 BCBSM ([facility]) [facility] CE ORGANIZ CLINI CHRISTINE AND SUPPO RT Oct 06, [id number] DEHNEH,LY NN PATIENT G210 BCBS ([facility]) [facility] SUPPO RT Oct 06, [id number] DEHNEH,LY NN PATIENT MEDICARE (WNR) MEDICARE () PART A Nov 19, 2006 PART A [id number] DEHNEH,LY NN PATIENT MEDICARE (WNR) MEDICARE () PART A Nov 19, 2006 PART A [id number] DEHNEH,LY NN PATIENT MEDICARE (WNR) MEDICARE ) PART B Nov 19, 2006 PART B [id number] DEHNEH,LY NN PATIENT MEDICARE (WN) MEDICARE ) PART A Nov 19, 2006 PART A [id number] DEHNEH,LY NN PATIENT MEDICARE (WNR) MEDICARE () PART A Nov 19, 2006 PART A [id number] DEHNEH,LY NN PATIENT MEDICARE (WNR) MEDICARE () PART A Nov 19, 2006 PART A [id number] DEHNEH,LY NN PATIENT MEDICARE (WNR) MEDICARE ) PART A Nov 19, 2006 PART A [id number] DEHNEH,LY NN PATIENT MEDICARE (WNR) MEDICARE ) PART A Nov 19, 2006 PART A [id number] DEHNEH,LY NN PATIENT MEDICARE (WNR) MEDICARE () PART B Nov 19, 2006 PART B [id number] DEHNEH,LY NN PATIENT Selected Encounter This section includes the information on record at [place] for the Encounter. Date/Time Encounter Type Encounter Description Reason Provider Source Aug 31, 2023 10:00 AM MTMS BY PHARM DAVIDL 15 MIN CLINICAL PHARMACY ICD-10-CM E11.9 Type 2 diabetes mellitus without complications TEODORA MULLINS [facility] Encounter Template Text not used by [place] Assessments - Encounter Diagnoses This section includes the primary and secondary diagnoses documented for the Encounter. Date/Time Primary/Secondary Diagnosis Diagnosis Name Provider Source Sep 03, 2023 08:14 AM PRIMARY Type 2 diabetes mellitus without complications BILL MULLINS [place] Plan of Treatment: Future Appointments (+ 6 months) and Future Tests (+/- 45 days) The Plan of Treatment section includes future care activities for the patient from all [facility]. This section includes future appointments and future orders which are active, pending or scheduled. Future Appointments This section includes appointments that were scheduled to occur 6 months from the date of the Encounter, up to a maximum of 20 appointments. The data comes from all [place] treatment facilities. Appointment Date/Time Appointment Type Appointme nt Facility Name Sep 04, 2023 01:30 PM AMBULATORY - PSYCHIATRY [facility] Sep 11, 2023 03:00 PM AMBULATORY - MEDICINE [facility] Sep 13, 2023 08:00 AM AMBULATORY [facility] MEDICINE [facility] [place] [place] [facility] Oct 29, 2023 04:00 PM AMBULATORY - PSYCHIATRY [facility] Nov 07, 2023 02:15 PM AMBULATORY - MEDICINE [facility] Nov 08, 2023 11:00 AM AMBULATORY - MEDICINE [facility] [place] [place] [facility] Nov 09, 2023 01:30 PM AMBULATORY - MEDICINE [facility] Nov 15, 2023 11:00 AM AMBULATORY - REHAB MEDICIN [facility] Nov 16, 2023 10:30 AM AMBULATORY - NONE [facility] [place] [facility] Nov 16, 2023 11:00 AM AMBULATORY - NONE [facility] [place] [facility] Dec 04, 2023 12:00 PM AMBULATORY - MEDICINE [facility] [place] [place] [facility] Dec 27, 2023 09:30 AM AMBULATORY - MEDICINE [facility] [place] [place] [facility] Feb 05, 2024 09:30 AM AMBULATORY - MEDICINE [facility] [place] [place] [facility] Feb 22, 2024 01:00 PM AMBULATORY - MEDICINE [facility] Feb 25, 2024 01:00 PM AMBULATORY - MEDICINE [place] [facility] [place] [facility] Feb 25, 2024 03:00 PM AMBULATORY - PSYCHIATRY [facility] Social History: Smoking Status (Most current) and Tobacco Use (All prior to encounter date) This section includes the most current, and the historical, smoking and tobacco- related health factors from the [place] facility where the Encounter took place. Current Smoking Status This section includes the most current smoking, or tobacco-related health factor, from the [place] facility where the Encounter took place. Date/Time Current Smoking Status Comment Rory nicholas Nov 22, 2020 11:00 AM [place]-TOBACCO NEVER USED [place] Tobacco Use History This section includes a history of the smoking, or tobacco-related health factors, that were collected on or before the date of the Encounter. The data comes from the [place] facility where the Encounter took place. Date/Time Smoking Status/Tobacco Use Comment F acility Jan 31, 2018 09:33 AM [place]-TOBACCO NEVER USED [place] May 10, 2017 01:08 PM LIFETIME NON-TOBACCO USER [place] Mar 02, 2015 09:05 AM LIFETIME NON-TOBACCO USER [place] July 10, 2001 02:49 PM LIFETIME NON-TOBACCO USER [place] Encounter Notes: All associated encounter notes This section contains the clinical notes associated to the Encounter. Date/Time Encounter Note(s) Provider Source Aug 31, 2023 10:08 AM PHARMACY OUTPATIEN T NOTE: LOCAL TITLE: PHARMACY CLINIC NOTE STANDARD TITLE: PHARMACY OUTPATIENT NOTE DATE OF NOTE: AUG 31, 2023@10:08 ENTRY DATE: AUG 31, 2023@10:08:26 AUTHOR: JEFFREY MULLINS EXP COSIGNER: URGENCY: STATUS: COMPLETED PHARMACY CLINIC NOTE Has ADDENDA Patient Name: INDY KU was seen via [facility] for follow-up for diabetes management treatment. : Dec Age: 58 Sex: FEMALE Race: WHITE Subjective: Pt presents for a f/up. She states her weight is up and down. She wants [place] to approve community care consult to nutrition that specializes w/ eating disorder. She has eating disorder and claims the only time she was successfull w/ the weight loss was when she was being followed by the certified personal finance counselor. The writer producer offered referral to the research test engine evaluator pt in agreement. Per prev: Pt presents to the visit for emerson pro upload. Pt seems to be in high spirits. This time she was not demanding GLP-1 treatment. She brought carefully written food journal. Pt continues to be very active -hiking and dancing. Pt has a lot of questions including ability to obtain certified personal finance counselor who specializes in anorexia treatment. Per prev: Pt presents for emerson pro placement. She states she already started [...] of her dtr. Pt previously worked in [employer] - has negative opinion about [facility] and [place] workers. Pt is health care literate. Target Goals: A1C: 7%; FB-130 mg/dL; 2HRS PP <180mg/dL. Allergies: ATIVAN PERTINENT INFORMATION: Active problems - Computerized Problem List is the source for the followin. Diabetes Mellitus Type 2 (RUST [id number]) 2. Hyperlipidemia (RUST 93603221) 3. Anemia (RUST [id number]) 4. Venous thrombosis 5. Recurrent genital herpes simplex 6. Connective tissue disease 7. Osteoarthritis 8. Binge eating disorder 9. Tendinitis 10. Type II diabetes mellitus 11. Cholelithiasis 12. Myalgia * 13. Laparoscopy, Surgical, Appendectomy 14. Calcifying tendinitis of shoulder 15. Tendinitis * 16. Screening Mammogram for Malignant Neoplasms of the Breast, other 17. Recurrent major depression (SNOMED CT 30484630) 18. Attention-Deficit/Hyperactivity Disorder NOS 19. Obesity (SNOMED CT 682964159) 20. Chronic post-traumatic stress disorder (SNOMED CT 554213826) 21. Fracture 22. Mastodynia * 23. ACCRETIONS ON TEETH 24. UNSPECIFIED DENTAL CARIES 25. Hysterectomy 26. Diabetes Mellitus Type II or unspecified 27. Hypercholesterolemia 28. Other and unspecified ovarian cyst 29. Temporomandibular Joint Syndrome 30. Complete External Hemorrhoidectomy 31. Asthma 32. HTN 33. Anemia Objective: Diabetes Medication Regimen: - Metformin SA 1000 MG DAILY Previous DM Medications: NONE Adherence: [...] TWICE DAILY MEDICATION RECONCILIATION:done BLOOD GLUCOSE MONITORING 07/06/23: Pt did not bring the meter to the visit. 08/31/23: pt did not bring the meter to the visit NUTRITION Diet Patterns: patient eats on avg. 3x/day: B: [place] oatmeal or nito donuts - bagel w/ cream cheese and donut L:grilled chicken on top of salad ; light irish + fruit or burger rebekah - zena whapper w/ rice and milk shake D:hello fresh or meal or any restaurant she wants or meal there green beans and potatoe ; or some nachios * Pt knows a lot about nutrition* pt is cooking hello freshes sometimes pt goes out to eat ; Snacks: baked potatoe chips, yogurt, 1/4 cup [...] lbs weight on 05/2023 => 254 lbs weight on 08/31/23 => 254.8 lbs goal weight : 217 lbs ASSESSMENT/PLAN: [...] Return to place emerson pro in June. Date: 06/22/23: emerson pro has been placed on pt's left arm: After this writer producer placed a emerson pro on pt's arm- pt started to share w/ writer producer that this is likely a waste of time since she has already started to diet and started to loose weight. She was very honest about seeking ozempic only to improve her weight loss. This writer producer explained to the again that GLP-1 shortage continues and [place] currently does not approve any new starts for weight loss only. Pt kept repeating the [facility] protocol . This writer producer strongly encouraged pt to return for f/up visit as she can learn a great deal from the emerson pro report. Discussed the recently repeated A1C which is wnl at 6.1% Date: 07/06/23: Reviewed w/ pt the findings of emerson pro in details. Pt seems to be obtaining a lot of information from it. Congratulated pt on great glycemic control It is matching her recent A1C. Pt does report some GI ADR's - recommend to perhaps lower metfomrin at this time by a little. Discussed the drug shortage for [place]. Local CFU may be upcoming - will keep pt posted. At this time no further changes. This visit focused strickly on nutrition. Date: 08/31/23: reviewed the referral options for weight loss. Pt declined move or fit vet. She is interested in nutrition but one that specializes in pts w/ eating disorders. Will refer pt to endocrine and for endocrine to make that decision. Reviewed CFU for GLP-1 agents. At this time pt wants to learn about options. no further f/up at this time. DIABETES A1c is below goal of <7% - Medication management Diabetes - c/t Metformin SA TO 1000 MG DAILY Obesity - no meds - Reviewed [facility] lab results - Monitor for s/sx hypoglycemia and contact clinic if BG consistently <70mg/dL - Healthy dietary and lifestyle modifications encouraged - monitor portion sizes - Repeat A1c:x 3 months HTN: recent BP ; VICENTE-I/ARB - defer to PCP ASCVD: cannot handle statins ; fish oil 1000 mg bid Microalb: History of Preventive Care: Most recent visit to retail worker:@[facility] will schedule Most recent visit to optometry:@[facility] : 2. Type 2 diabetes without retinopathy or CSME OU last visit Clinic's Next Scheduled Follow-up: no future follow up will be arranged at this time for the [place]. referral to research test engine evaluator. No barriers; Patient understands and agrees to current treatment plan. If he has any questions, concerns, or changes in current health status he will call or come in to the [facility]. FUTURE APPOINTMENTS: 07/05/2023 15:00 CWM/SO/VVC/MHC/BERMUDEZ 07/06/2023 13:30 CWM/SO/PHARM/PACT 2 11/14/2023 14:15 CWM/NO/DENTAL/RDH1 PM 12/04/2023 13:30 CWM/SO/PACT EIGHT 01/29/2024 10:30 NHM/OPT/VISUAL IMAGING 01/29/2024 11:00 CWM/NO/OPTOMETRY/BRIONNA DM type is :T2D obesity Length of Visit: 30 minutes PBM PharmD Pharmacotherapy Rem V12: PHARMACIST INTERVENTIONS: OBESITY/WEIGHT MANAGEMENT Medication monitoring, no dosage change required, continue to monitor and assess PBM PharmD Pharmacotherapy Rem V12: PHARMACIST INTERVENTIONS: TYPE 2 DIABETES MELLITUS Medication Intervention(s) Medication monitoring, no dosage change required, continue to monitor and assess /farhan/ JEFFREY MULLINS CLINICAL SHELL FISHERMAN Signed: 09/03/2023 08:29 Receipt Acknowledged By: 09/05/2023 12:45 /sindi RO MD PRIMARY CARE PHYSICIAN 09/05/2023 ADDENDUM STATUS: COMPLETED No history of blood pressure. BP in 120s with last office visit. We will going to check again with next visit in November /sindi RO MD PRIMARY CARE PHYSICIAN Signed: 09/05/2023 12:46 JEFFREY MULLINSFIELD
--- OUTSIDE RECORDS SUMMARY | 2024-03-10 09:15 | XMS_ITS | Encounter Summary ---
Author Name [facility] [place] Address [address] [place] [address] Care Team Providers Care Home Lighting Adviser Name Role Phone GARRETT GOOD Primary Care [...] Boykin's Name Patient's Relationship to Policy Boykin [facility] CE ORGANIZ HMO Oct 06, 2018 HMO [id number] [phone] MEREDITH KU NN PATIENT ANTHEM BCBS CT FEDERAL PREFERRED PROVIDER ORGANIZAT ION (PPO) BASIC FAMIL Y Jan 31, 2015 [id number] MEREDITH KU NN PATIENT ANTHEM BCBS OF CT (BLUECARD) HIGH DEDUCTIBL E HEALTH PLAN CLINI [facility] & SUP HDHP Oct 06, 2018 [id number] [phone] MEREDITH KU NN PATIENT BCBS [place] HIGH DEDUCTIBL E HEALTH PLAN CLINI [facility] AND BLAKE HDHP Oct 06, 2018 [id number] MEREDITH KU NN PATIENT [place] HIGH DEDUCTIBL E HEALTH PLAN CLINI CHRISTINE SUPP HDHP Oct 06, [id number] [phone] DELUISITOLY NN PATIENT BCBS OF [facility] CE ORGANIZ CLINI CHRISTINE AND SUPPO RT Oct 06, [id number] DELUISITOLY NN PATIENT BCBS OF [facility] PREFERRED PROVIDER ORGANIZAT ION (PPO) BASIC FAMIL Y Jan 31, 2015 [id number] DEHNTAMEKALY NN PATIENT [place] FEPRX PLAN PRESCRIPT ION BCBS FEP Jan 31, 2015 [id number] MEREDITH KU NN PATIENT [place]-F EP BCBS PRESCRIPT ION BCBS FEP PLAN Jan 31, 2015 [id number] ELMIRALY NN PATIENT EXPRESS SCRIPTS PRESCRIPT ION HMO Oct 06, 2018 L4TA [id number] ELMIRALY NN PATIENT EXPRESS SCRIPTS PRESCRIPT ION CLINI [facility] AND SUPPO RT Sep 19, 2018 L4TA [id number] DELUISITOLY NN PATIENT EXPRESS SCRIPTS ([id number]) PRESCRIPT ION HDHP Oct 06, 2018 L4TA [id number] DEHNEHLY NN PATIENT EXPRESS SCRIPTS ([id number]) PRESCRIPT ION L4TA Oct 06, 2018 L4TA [id number] DEHNEHLY NN PATIENT EXPRESS SCRIPTS ([id number]) PRESCRIPT ION L4TA HDHP Oct 06, 2018 L4TA [id number] DELUISITOLY NN PATIENT EXPRESS SCRIPTS RX PRESCRIPT ION CLINI [facility] AND SUPPO RT Oct 06, 2018 L4TA [id number] DEHNEH,LY NN PATIENT [id number] [facility] CE ORGANIZ CLINI [facility] AND SUPPO RT Oct 06, [id number] DEHNTAMEKALY NN PATIENT [id number] [facility] CE ORGANIZ CLINI CHRISTINE AND SUPPO RT Oct 06, [id number] DEHNEH,LY NN PATIENT G210 BCBS ([facility] SUPPO RT Oct 06, [id number] DEHNEH,LY NN PATIENT G210 BCBS (PROFESSIO NAL) [facility] CE ORGANIZ CLINI CHRISTINE AND SUPPO RT Oct 06, [id number] DEHNEH,LY NN PATIENT MEDICARE (WNR) MEDICARE () PART A Nov 19, 2006 PART A [id number] DEHNEH,LY NN PATIENT MEDICARE (WNR) MEDICARE () PART A Nov 19, 2006 PART A [id number] DEHNEH,LY NN PATIENT MEDICARE (WNR) MEDICARE () PART B Nov 19, 2006 PART B [id number] DEHNEH,LY NN PATIENT MEDICARE (WNR) MEDICARE () PART A Nov 19, 2006 PART A [id number] DEHNEH,LY NN PATIENT MEDICARE (WNR) MEDICARE () PART A Nov 19, 2006 PART A [id number] DEHNEH,LY NN PATIENT MEDICARE (WNR) MEDICARE () PART A Nov 19, 2006 PART A [id number] DEHNEH,LY NN PATIENT MEDICARE (WNR) MEDICARE () PART A Nov 19, 2006 PART A [id number] [phone] DEHNEH,LY NN PATIENT MEDICARE (WNR) MEDICARE () PART A Nov 19, 2006 PART A [id number] DEHNEH,LY NN PATIENT MEDICARE (WNR) MEDICARE () PART B Nov 19, 2006 PART B [id number] DEHNEH,LY NN PATIENT Selected Encounter This section includes the information on record at [place] for the Encounter. Date/Time Encounter Type Encounter Description Reason Pro vider Source July 07, 2023 12:28 AM Outpatient Encounter CLINICAL PHARMACY IHE Encounter Template Text not used by [facility] Plan of Treatment: Future Appointments (+ 6 months) and Future Tests (+/- 45 days) The Plan of Treatment section includes future care activities for the patient from all [place] [facility]. This section includes future appointments and future orders which are active, pending or scheduled. Future Appointments This section includes appointments that were scheduled to occur 6 months from the date of the Encounter, up to a maximum of 20 appointments. The data comes from all [place] treatment [facility]. Appointment Date/Time Appointment Type Appointme nt Facility Name Aug 31, 2023 10:00 AM AMBULATORY - [place]ICINE [place] [facility] [place] [facility] Sep 04, 2023 01:30 PM AMBULATORY - PSYCHIATRY [facility] Sep 11, 2023 03:00 PM [facility] Sep 13, 2023 08:00 AM AM[place]UL[place]ORY [place]ICINE [place] [facility] [place] [facility] Oct 29, 2023 04:00 PM AMBULATORY - PSYCHIATRY [facility] Nov 07, 2023 02:15 PM AMBULATORY - MEDICINE [facility] Nov 08, 2023 11:00 AM AM[place]ULATORY - [place]ICINE [place] [facility] [place] [facility] Nov 09, 2023 01:30 PM [facility] Nov 15, 2023 11:00 AM AMBULATORY - REHAB [facility] Nov 16, 2023 10:30 AM AMBULATORY - NONE [place] [facility] [place] [facility] Nov 16, 2023 11:00 AM AMBULATORY - NONE [place] [facility] [place] [facility] Dec 04, 2023 12:00 PM AM[place]ULATORY - [place]ICINE [place] [facility] [place] [facility] Dec 27, 2023 09:30 AM [facility] Social History: Smoking Status (Most current) and Tobacco Use (All prior to encounter date) This section includes the most current, and the historical, smoking and tobacco- related health factors from the [place] facility where the Encounter took place. Current Smoking Status This section includes the most current smoking, or tobacco-related health factor, from the [place] facility where the Encounter took place. Date/Time Current Smoking Status Comment Rory nicholas Aug 11, 2022 02:50 PM VA-TOBACCO NEVER USED [facility] Tobacco Use History This section includes a history of the smoking, or tobacco-related health factors, that were collected on or before the date of the Encounter. The data comes from the [place] facility where the Encounter took place. Date/Time Smoking Status/Tobacco Use Comment F acility Dec 05, 2019 01:53 PM VA-TOBACCO NEVER USED [place] [facility] [place] [facility] May 26, 2016 02:32 PM LIFETIME NON-TOBACCO USER [place] [facility] [place] [facility] Encounter Notes: All associated encounter notes This section contains the clinical notes associated to the Encounter. Date/Time Encounter Note(s) Provider Source July 07, 2023 12:28 AM DIABETOLOGY NOTE: LOCAL TITLE: INSULIN PUMP/CGM DOWNLOAD (T) STANDARD TITLE: DIABETOLOGY NOTE DATE OF NOTE: JULY 07, 2023@00:28 ENTRY DATE: JULY 07, 2023@00:28:34 AUTHOR: JEFFREY MULLINS EXP COSIGNER: URGENCY: STATUS: COMPLETED Please select: Professional Continuous Glucose Monitor Date of Documentation:June Please see attached scanned document in [employer]. /farhan/ JEFFREY MULLINS CLINICAL CHIEF CONSTRUCTION INSPECTOR Signed: 07/07/2023 00:28 JEFFREY MULLINS [place]
--- OUTSIDE RECORDS SUMMARY | 2024-03-10 09:15 | XMS_ITS | Encounter Summary ---
Author Name [facility] [place] [facility] [place] Address [address] [place] [address] Care Team Providers Care Electrical Instrumentation Technician Name Role Phone GARRETT GOOD Primary Care [...] Patient's Relationship to Policy Boykin [facility] CE ORGANIZ HMO Oct 06, 2018 [id number] MEREDITH KU NN PATIENT ANTHEM BCBS CT FEDERAL PREFERRED PROVIDER ORGANIZAT ION (PPO) BASIC FAMIL Y Jan 31, 2015 [id number] MEREDITH KU NN PATIENT ANTHEM BCBS OF CT (BLUECARD) HIGH DEDUCTIBL E HEALTH PLAN CLINI [facility]INE & SUP HDHP Oct 06, 2018 [id number] MEREDITH KU NN PATIENT BCBS [place] HIGH DEDUCTIBL E HEALTH PLAN CLINI [facility] [place] HDHP Oct 06, 2018 [id number] MEREDITH KU NN PATIENT [place]IGH DEDUCTIBL E HEALTH PLAN CLINI CHRISTINE SUPP HDHP Oct 06, 2018 [id number] ATTILATAMEKALY NN PATIENT [place]BS OF [place] [facility] CE ORGANIZ CLINI CHRISTINE AND SUPPO RT Oct 06, [id number] DEHNTAMEKALY NN PATIENT BCBS OF [facility] PREFERRED PROVIDER ORGANIZAT ION (PPO) BASIC FAMIL Y Jan 31, 2015 [id number] DELUISITOLY NN PATIENT [place] FEPRX PLAN PRESCRIPT ION BCBS FEP Jan 31, 2015 [id number] ELMIRALY NN PATIENT [place]-F EP BCBS PRESCRIPT ION BCBS FEP PLAN Jan 31, 2015 [id number] ELMIRALY NN PATIENT EXPRESS SCRIPTS PRESCRIPT ION HMO Oct 06, 2018 L4TA [id number] DENEREYDATAMEKALY NN PATIENT EXPRESS SCRIPTS PRESCRIPT ION CLINI [facility] AND SUPPO RT Sep 19, 2018 L4TA [id number] DELUISITOLY NN PATIENT EXPRESS SCRIPTS ([id number]) PRESCRIPT ION HDHP Oct 06, 2018 L4TA [id number] DEHNTAMEKALY NN PATIENT EXPRESS SCRIPTS ([id number]) PRESCRIPT ION L4TA Oct 06, 2018 L4TA [id number] DEHNEHLY NN PATIENT EXPRESS SCRIPTS ([id number]) PRESCRIPT ION L4TA HDHP Oct 06, 2018 L4TA [id number] DELUISITOLY NN PATIENT EXPRESS SCRIPTS RX PRESCRIPT ION CLINI [facility] AND SUPPO RT Oct 06, 2018 L4TA [id number] DELUISITO,LY NN PATIENT [id number] [facility] CE ORGANIZ CLINI CHRISTINE AND SUPPO RT Oct 06, [id number] ELMIRALY NN PATIENT [id number] [facility] CE ORGANIZ CLINI CHRISTINE AND SUPPO RT Oct 06, [id number] DEHNEH,LY NN PATIENT G210 BCBSM ([facility]) [facility] CE ORGANIZ CLINI CHRISTINE AND SUPPO RT Oct 06, [id number] DEHNEH,LY NN PATIENT G210 BCBSM ([facility] NAL) [facility] CL[facility] AND SUPPO RT Oct 06, [id number] DEHNEH,LY NN PATIENT MEDICARE (WN) MEDICARE ) PART A Nov 19, 2006 PART A [id number] DEHNEH,LY NN PATIENT MEDICARE (WNR) MEDICARE ) PART A Nov 19, 2006 PART A [id number] DEHNEH,LY NN PATIENT MEDICARE (WNR) MEDICARE ) PART A Nov 19, 2006 PART A [id number] DEHNEH,LY NN PATIENT MEDICARE (WN) MEDICARE ) PART B Nov 19, 2006 PART B [id number] DEHNEH,LY NN PATIENT MEDICARE (WNR) MEDICARE () PART A Nov 19, 2006 PART A [id number] DEHNEH,LY NN PATIENT MEDICARE (WNR) MEDICARE () PART A Nov 19, 2006 PART A [id number] DEHNEH,LY NN PATIENT MEDICARE (WNR) MEDICARE ) PART A Nov 19, 2006 PART A [id number] DEHNEH,LY NN PATIENT MEDICARE (WNR) MEDICARE ) PART A Nov 19, 2006 PART A [id number] [phone] DEHNEH,LY NN PATIENT MEDICARE (WNR) MEDICARE ) PART B Nov 19, 2006 PART B [id number] DEHNEH,LY NN PATIENT Selected Encounter This section includes the information on record at [place] for the Encounter. Date/Time Encounter Type Encounter Description Reason Provider Source July 06, 2023 01:30 PM CONT GLUC MNTR ANALYSIS I&R CLINICAL PHARMACY ICD-10-CM E11.9 Type 2 diabetes mellitus without complications TEODORA MULLINS [facility] Encounter Template Text not used by [place] Assessments - Encounter Diagnoses This section includes the primary and secondary diagnoses documented for the Encounter. Date/Time Primary/Secondary Diagnosis Diagnosis Name Provider Source July 07, 2023 12:22 AM PRIMARY Type 2 diabetes mellitus without complications BILL MULLINS [place] Plan of Treatment: Future Appointments (+ 6 months) and Future Tests (+/- 45 days) The Plan of Treatment section includes future care activities for the patient from all [place] treatmentfacilities. This section includes future appointments and future orders which are active, pending or scheduled. Future Appointments This section includes appointments that were scheduled to occur 6 months from the date of the Encounter, up to a maximum of 20 appointments. The data comes from all [place] treatment facilities. Appointment Date/Time Appointment Type Appointme nt Facility Name Aug 31, 2023 10:00 AM AMBULATORY - [place]ICINE [place] [facility] [place] [facility] Sep 04, 2023 01:30 PM AMBULATORY - PSYCHIATRY [facility] Sep 11, 2023 03:00 PM AMBULATORY - MEDICINE [facility] Sep 13, 2023 08:00 AM AMBULATORY - MEDICINE [place] [facility] [place] [facility] Oct 29, 2023 04:00 PM AMBULATORY - PSYCHIATRY [facility] Nov 07, 2023 02:15 PM AMBULATORY - MEDICINE [facility] Nov 08, 2023 11:00 AM AMBULATORY - MEDICINE [place] [facility] [place] [facility] Nov 09, 2023 01:30 PM AMBULATORY - MEDICINE [facility] Nov 15, 2023 11:00 AM AMBULATORY - REHAB MEDICIN [facility] Nov 16, 2023 10:30 AM AMBULATORY - NONE [place] [facility] [place] [facility] Nov 16, 2023 11:00 AM AMBULATORY - NONE [place] [facility] [place] [facility] Dec 04, 2023 12:00 PM AMBULATORY - MEDICINE [place] [facility] [facility] Dec 27, 2023 09:30 AM AMBULATORY - MEDICINE [place] [facility] [facility] Social History: Smoking Status (Most current) and Tobacco Use (All prior to encounter date) This section includes the most current, and the historical, smoking and tobacco- related health factors from the [place] facility where the Encounter took place. Current Smoking Status This section includes the most current smoking, or tobacco-related health factor, from the [place] facility where the Encounter took place. Date/Time Current Smoking Status Comment Rory nicholas Nov 22, 2020 11:00 AM [place]-TOBACCO NEVER USED [place] Tobacco Use History This section includes a history of the smoking, or tobacco-related health factors, that were collected on or before the date of the Encounter. The data comes from the [place] facility where the Encounter took place. Date/Time Smoking Status/Tobacco Use Comment F acility Jan 31, 2018 09:33 AM VA-TOBACCO NEVER USED [place] May 10, 2017 01:08 PM LIFETIME NON-TOBACCO USER [place] Mar 02, 2015 09:05 AM LIFETIME NON-TOBACCO USER [place] July 10, 2001 02:49 PM LIFETIME NON-TOBACCO USER [place] Encounter Notes: All associated encounter notes This section contains the clinical notes associated to the Encounter. Date/Time Encounter Note(s) Provider Source July 06, 2023 01:37 PM PHARMACY OUTPATIEN T NOTE: LOCAL TITLE: PHARMACY CLINIC NOTE STANDARD TITLE: PHARMACY OUTPATIENT NOTE DATE OF NOTE: JULY 06, 2023@13:37 ENTRY DATE: JULY 06, 2023@13:37:34 AUTHOR: JEFFREY MULLINS EXP COSIGNER: URGENCY: STATUS: COMPLETED Patient Name: INDY KU was seen via [facility] for follow-up for diabetes management treatment. : Dec Age: 58 Sex: FEMALE Race: WHITE Subjective: Pt presents to the visit for emerson pro upload. Pt seems to be in high spirits. This time she was not demanding GLP-1 treatment. She brought carefully written food journal. Pt continues to be very active -hiking and dancing. Pt has a lot of questions including ability to obtain pourer off who specializes in anorexia treatment. Per prev: [...] of her dtr. Pt previously worked in [employer] - has negative opinion about VA and VA workers. Pt is health care literate. Target Goals: A1C: 7%; FB-130 mg/dL; 2HRS PP <180mg/dL. Allergies: ATIVAN PERTINENT INFORMATION: Active problems - Computerized Problem List is the source for the followin. Diabetes Mellitus Type 2 ([facility] [id number]) 2. Hyperlipidemia ([facility] 48805996) 3. Anemia ([facility] [id number]) 4. Venous thrombosis 5. Recurrent genital herpes simplex 6. Connective tissue disease 7. Osteoarthritis 8. Binge eating disorder 9. Tendinitis 10. Type II diabetes mellitus 11. Cholelithiasis 12. Myalgia * 13. Laparoscopy, Surgical, Appendectomy 14. Calcifying tendinitis of shoulder 15. Tendinitis * 16. Screening Mammogram for Malignant Neoplasms of the Breast, other 17. Recurrent major depression (SNOMED CT 46313875) 18. Attention-Deficit/Hyperactivity Disorder NOS 19. Obesity (SNOMED CT 700683150) 20. Chronic post-traumatic stress disorder (SNOMED CT 291128233) 21. Fracture 22. Mastodynia * 23. ACCRETIONS [...] Patterns: patient eats on avg. x/day: B: [place] oatmeal or nito donuts - bagel w/ cream cheese and donut L:grilled chicken on top of salad ; light hungarian + fruit or burger rebekah - zena [...] weight loss purposes. Discussed the options w/ [place]: both Qsymia and Orlistat. Pt is not [...] placed on pt's left arm: After this quality analyst/technical writer placed a emerson pro on pt's arm- pt started to share w/ quality analyst/technical writer that this is likely a waste of time since she has already started to diet and started to loose weight. She was very honest about seeking ozempic only to improve her weight loss. This quality analyst/technical writer explained to the again that GLP-1 shortage continues and [place] currently does not approve any new starts for weight loss only. Pt kept repeating the [facility] protocol . This quality analyst/technical writer strongly encouraged pt to return for [...] a little. Discussed the drug shortage for [place]. Local CFU may be upcoming - will keep pt posted. At this time no further changes. This visit focused strickly on nutrition. DIABETES A1c is below goal of <7% - Medication management Diabetes - REDUCE Metformin SA TO 1000 MG DAILY - Reviewed [facility] lab results - Monitor for s/sx hypoglycemia and contact clinic if BG consistently <70mg/dL - Healthy dietary and lifestyle modifications encouraged - - Repeat A1c:x 3 months HTN: recent BP ; VICENTE-I/ARB - defer to PCP ASCVD: cannot handle statins ; fish oil 1000 mg bid Microalb: History of Preventive Care: Most recent visit to fabrication and assembly supervisor:@[facility] will schedule Most recent visit to optometry:@[facility] : 2. Type 2 diabetes without retinopathy or CSME OU last visit Clinic's Next Scheduled Follow-up: August, No barriers; Patient understands and agrees to current treatment plan. If he has any questions, concerns, or changes in current health status he will call or come in to the VA. FUTURE APPOINTMENTS: 07/05/2023 15:00 CWM/SO/VVC/MHC/BERMUDEZ 07/06/2023 13:30 CWM/SO/PHARM/PACT 2 11/14/2023 14:15 CWM/NO/DENTAL/RDH1 PM 12/04/2023 13:30 CWM/SO/PACT EIGHT WH 01/29/2024 10:30 NHM/OPT/VISUAL IMAGING 01/29/2024 11:00 CWM/NO/OPTOMETRY/BRIONNA DM type is :T2D Length of Visit: 25minutes PBM PharmD Pharmacotherapy Rem V12: PHARMACIST INTERVENTIONS: TYPE 2 DIABETES MELLITUS Medication Intervention(s) Adjust dose or frequency of current medication due to other reason Plan: REDUCE DOSE OF METFOMRIN D/T GI ADR Medication monitoring, no dosage change required, continue to monitor and assess /farhan/ JEFFREY MULLINS CLINICAL WAREHOUSE SHIPPING SUPERVISOR Signed: 07/07/2023 00:28 Receipt Acknowledged By: 07/11/2023 08:33 /farhan/ ELMER RO MD PRIMARY CARE PHYSICIAN JEFFREY MULLINS [place]
--- OUTSIDE RECORDS SUMMARY | 2024-03-10 09:15 | XMS_ITS | Encounter Summary ---
Author Name [facility] Address [address] [place] [address] Care Team Providers Care Silviculturist Name Role Phone GARRETT GOOD Primary Care [...] CE ORGANIZ HMO Oct 06, 2018 [id number] MEREDITH KU NN PATIENT ANTHEM BCBS CT FEDERAL PREFERRED PROVIDER ORGANIZAT ION (PPO) BASIC FAMIL Y Jan 31, 2015 [id number] MEREDITH KU NN PATIENT ANTHEM BCBS OF CT (BLUECARD) HIGH DEDUCTIBL E HEALTH PLAN [facility]INI [facility] Oct 06, 2018 [id number] MEREDITH KU NN PATIENT BCBS [place] HIGH DEDUCTIBL E HEALTH PLAN [facility] [place] HDHP Oct 06, 2018 [id number] [phone] MEREDITH KU NN PATIENT BCBS OF [place] HIGH DEDUCTIBL E HEALTH PLAN CLINI [facility] SUPP HDHP Oct 06, 2018 [id number] ATTILATAMEKALY NN PATIENT BCBS [place]GAN[facility] SUPPO RT Oct 06, [id number] [phone] DEHNTAMEKALY NN PATIENT BCBS OF [facility] PREFERRED PROVIDER ORGANIZAT ION (PPO) BASIC FAMIL Y Jan 31, 2015 [id number] DELUISITOLY NN PATIENT [place] FEPRX PLAN PRESCRIPT ION BCBS FEP Jan 31, 2015 [id number] ELMIRALY NN PATIENT [place]-F EP BCBS PRESCRIPT ION BCBS FEP PLAN Jan 31, 2015 [id number] ELMIRALY NN PATIENT EXPRESS SCRIPTS PRESCRIPT ION HMO Oct 06, 2018 L4TA [id number] DENEREYDATAMEKALY NN PATIENT EXPRESS SCRIPTS PRESCRIPT ION CLINI [facility]PP[facility] RT Sep 19, 2018 L4TA [id number] DELUISITOLY NN PATIENT EXPRESS SCRIPTS ([id number]) PRESCRIPT ION HDHP Oct 06, 2018 L4TA [id number] DEHNTAMEKALY NN PATIENT EXPRESS SCRIPTS ([id number]) PRESCRIPT ION L4TA Oct 06, 2018 L4TA [id number] DEHNEHLY NN PATIENT EXPRESS SCRIPTS ([id number]) PRESCRIPT ION L4TA HDHP Oct 06, 2018 L4TA [id number] DELUISITOLY NN PATIENT EXPRESS SCRIPTS RX PRESCRIPT ION CLINI [facility] SUPPO RT Oct 06, 2018 L4TA [id number] DELUISITO,LY NN PATIENT [id number] [facility] CE ORGANIZ CLIN[facility] SUPPO RT Oct 06, [id number] ELMIRALY NN PATIENT [id number] [facility] CE ORGANIZ CLINI [facility] AND SUPPO RT Oct 06, [id number] DEHNEH,LY NN PATIENT G210 BCBSM [facility] RT Oct 06, [id number] DEHNEH,LY NN PATIENT G210 BCBS ([facility] RT Oct 06, [id number] DEHNEH,LY NN PATIENT MEDICARE (WN) MEDICARE ) PART A Nov 19, 2006 PART A [id number] DEHNEH,LY NN PATIENT MEDICARE (WNR) MEDICARE () PART A Nov 19, 2006 PART A [id number] DEHNEH,LY NN PATIENT MEDICARE (WNR) MEDICARE () PART A Nov 19, 2006 PART A [id number] DEHNEH,LY NN PATIENT MEDICARE (WN) MEDICARE ) PART A Nov 19, 2006 PART A [id number] DEHNEH,LY NN PATIENT MEDICARE (WNR) MEDICARE () PART B Nov 19, 2006 PART B [id number] DEHNEH,LY NN PATIENT MEDICARE (WNR) MEDICARE () PART A Nov 19, 2006 PART A [id number] DEHNEH,LY NN PATIENT MEDICARE (WNR) MEDICARE () PART A Nov 19, 2006 PART A [id number] DEHNEH,LY NN PATIENT MEDICARE (WNR) MEDICARE () PART A Nov 19, 2006 PART A [id number] [phone] DEHNEH,LY NN PATIENT MEDICARE (WNR) MEDICARE () PART B Nov 19, 2006 PART B [id number] DEHNEH,LY NN PATIENT Selected Encounter This section includes the information on record at [place] for the Encounter. Date/Time Encounter Type Encounter Description Reason Provider Source July 05, 2023 03:00 PM OFFICE O/P EST MOD 30 MIN [facility] - IND ICD-10-CM F33.40 Major depressive disorder, recurrent, in remission, unsp ADIA BERMUDEZ G E Encounter Template Text not used by [place] Assessments - Encounter Diagnoses This section includes the primary and secondary diagnoses documented for the Encounter. Date/Time Primary/Secondary Diagnosis Diagnosis Name Provider Source July 05, 2023 07:04 PM PRIMARY Major depressive disorder, recurrent, in remission, unsMINDA Heredia [place] Plan of Treatment: Future Appointments (+ 6 months) and Future Tests (+/- 45 days) The Plan of Treatment section includes future care activities for the patient from all [facility]. This section includes future appointments and future orders which are active, pending or scheduled. Future Appointments This section includes appointments that were scheduled to occur 6 months from the date of the Encounter, up to a maximum of 20 appointments. The data comes from all [place] treatment facilities. Appointment Date/Time Appointment Type Appointme nt Facility Name July 06, 2023 01:30 PM [facility]ULATORY [facility] [place] [facility] Aug 31, 2023 10:00 AM AMBULATORY - MEDICINE [facility] [place] [facility] Sep 04, 2023 01:30 PM AMBULATORY - PSYCHIATRY [facility] Sep 11, 2023 03:00 PM AMBULATORY - MEDICINE [facility] Sep 13, 2023 08:00 AM AMBULATORY - MEDICINE [facility] [place] [facility] Oct 29, 2023 04:00 PM AMBULATORY - PSYCHIATRY [facility] Nov 07, 2023 02:15 PM AMBULATORY - MEDICINE [facility] Nov 08, 2023 11:00 AM AMBULATORY - MEDICINE [facility] [place] [facility] Nov 09, 2023 01:30 PM AMBULATORY - MEDICINE [facility] Nov 15, 2023 11:00 AM AMBULATORY - REHAB [facility]IC[facility] Nov 16, 2023 10:30 AM AMBULATORY - NONE [facility] [place] [facility] Nov 16, 2023 11:00 AM AMBULATORY - NONE [facility] [place] [facility] Dec 04, 2023 12:00 PM AMBULATORY - MEDICINE [facility] [place] [facility] Dec 27, 2023 09:30 AM AMBULATORY - MEDICINE [facility] [place] [facility] Social History: Smoking Status (Most current) and Tobacco Use (All prior to encounter date) This section includes the most current, and the historical, smoking and tobacco- related health factors from the NE facility where the Encounter took place. Current Smoking Status This section includes the most current smoking, or tobacco-related health factor, from the NE facility where the Encounter took place. Date/Time Current Smoking Status Comment Rory nicholas Nov 22, 2020 11:00 AM VA-TOBACCO NEVER USED [place] Tobacco Use History This section includes a history of the smoking, or tobacco-related health factors, that were collected on or before the date of the Encounter. The data comes from the NE facility where the Encounter took place. Date/Time Smoking Status/Tobacco Use Comment F acility Jan 31, 2018 09:33 AM NE-TOBACCO NEVER USED [place] May 10, 2017 01:08 PM LIFETIME NON-TOBACCO USER [place] Mar 02, 2015 09:05 AM LIFETIME NON-TOBACCO USER [place] July 10, 2001 02:49 PM LIFETIME NON-TOBACCO USER [place] Encounter Notes: All associated encounter notes This section contains the clinical notes associated to the Encounter. Date/Time Encounter Note(s) Provider Source July 05, 2023 03:05 PM TELEHEALTH NOTE: LOCAL TITLE: [place] VIDEO CONNECT PSYCHIATRIST NOTE STANDARD TITLE: TELEHEALTH NOTE DATE OF NOTE: JULY 05, 2023@15:05 ENTRY DATE: JULY 05, 2023@15:05:15 AUTHOR: MINDA BERMUDEZ EXP COSIGNER: URGENCY: STATUS: COMPLETED [place] Video Connect (VVC) Standard Documentation VVC Clinician Resources Only: E911 (Emergency Call Relay Center): [phone] [facility] Crisis Line - 988 then press #1. [facility] Suicide Coordinator [phone], Ext. [phone]; Back-up Ext. [phone] [place] PoliceHA [place] [phone] Introduction: Visit is being conducted by [facility]. identified with 2 identifiers: [X] Full Name [X] Date of [ ] VA ID Card Emergency Plan: [place] confirmed and/or provided the following information in case of emergency or technology failure. PATIENT PHONE - PHONE NUMBER [CELLULAR] - Is patient phone number correct, if not, enter below: 's phone number: INDY KU [address] [place] [address], [phone] 's present location and address for appointment: home 's emergency contact name and phone number: chart reported that location is private and safe: Yes Informed Consent: [place] informed of the risks and benefits of Telehealth video care. [place] has the right to refuse video services. If refuses video visit, a [id number] visit will be scheduled. [place] verbalized consent for this video visit: Yes provided consent for any other persons present for visit: N/A If yes, who and relationship to patient: Secure visit: Visit was locked for security and privacy:Yes 30 min for encounter, including chart review, interview, charting chart reviewed Patient again presents as relatively stable, but has several ongoing stressors. Mood relatively stable. She again reports that depression, anxiety and PTSD symptoms [...] at bedtime of Seroquel to help with mood/anxiety/sleep, but she will try to take less Seroquel when possible, and her eventual goal is to taper off of Seroquel. See below. She would like to keep psychiatric medications the same, she finds them significantly beneficial. Well-tolerated. Benefits outweigh risks. She denies psych medication side effects. No daytime sedation. Reports psych medication compliance She previously denied alcohol and drug abuse; reports occ drink The patient did retire from her job working for the [employer], she feels less stress because of leaving this job. But she is very busy with appointments for her daughter. wt 254 lbs 05/2023 Active problems - Computerized Problem List is the source for the followin. Diabetes Mellitus Type 2 ([facility] [id number]) 2. Hyperlipidemia ([facility] [id number]) 3. Anemia ([facility] [id number]) 4. Venous thrombosis 5. Recurrent genital herpes simplex 6. Connective tissue disease 7. Osteoarthritis 8. Binge eating disorder 9. Tendinitis 10. Type II diabetes mellitus 11. Cholelithiasis 12. Myalgia * 13. Laparoscopy, Surgical, Appendectomy 14. Calcifying tendinitis of shoulder 15. Tendinitis * 16. Screening Mammogram for Malignant Neoplasms of the Breast, other 17. Recurrent major depression ([facility] CT 16924273) 18. Attention-Deficit/Hyperactivity Disorder NOS 19. Obesity ([facility]OM[facility] CT 942167620) 20. Chronic post-traumatic stress disorder ([facility]OMED CT 137956320) 21. Fracture 22. Mastodynia * 23. ACCRETIONS ON TEETH 24. UNSPECIFIED DENTAL CARIES 25. Hysterectomy 26. Diabetes Mellitus Type II or unspecified 27. Hypercholesterolemia 28. Other and unspecified ovarian cyst 29. Temporomandibular Joint Syndrome 30. Complete External Hemorrhoidectomy 31. Asthma 32. HTN 33. Anemia Active Outpatient Medications (including Supplies): Active Outpatient Medications Status ======= 1) ACCU-CHEK GUIDE (GLUCOSE) TEST STRIP USE 1 STRIP TO ACTIVE TEST BLOOD SUGARS TWO TIMES A WEEK 2) CHOLECALCIF 25MCG (D3-1,000UNIT) TAB TAKE ONE [...] TABLET BY MOUTH ACTIVE AT BEDTIME NEEDED FOR ANXIETY. YOU MAY [...] that she may talk with clinician at [facility] about taper down this Psychiatric Medicaton hx: also note that pt [...] to do this. Continue w psychotherapist at [facility] ctr therapist Dr Nguyen Chris -- [...] sleep hygiene, and with other meds see below. The patient understands she can take less trazodone if sufficient for sleep. CONTINUE MELATONIN 6 MG QHS PRN INSOMNIA [...] chart through primary care rtc in about 3 mo for psych med follow up; I [...] Review used to complete this medication reconciliation. MH Atyp Antipsych Metabol Syndrome : Lipid profile ordered at this encounter. AIMS Testing: AIMS (Mental Health Instrument) The patient was evaluated for symptoms of tardive dyskinesia using the AIMS. Total score for items 1-7: 0 /farhan/ MINDA BERMUDEZ MD STAFF PSYCHIATRIST Signed: 07/05/2023 19:04 Receipt Acknowledged By: 07/06/2023 07:20 /farhan/ Melissa Dominguez ADVANCED TELEVISION INSTALLER HELPER 07/06/2023 10:52 /es/ MELODY BARBA ADVANCED TELEVISION INSTALLER HELPER MINDA BERMUDEZ
--- OUTSIDE RECORDS SUMMARY | 2024-03-10 09:16 | XMS_ITS ---
Author Name [facility] [place] [facility] [place] Address [address] [place] [address] Care Team Providers Care Piano Regulator Name Role Phone GARRETT GOOD Primary Care [...] Boykin's Name Patient's Relationship to Policy Boykin [facility] ORGANIZ HMO Oct 06, 2018 O [id number] MEREDITH KU NN PATIENT ANTHEM BCBS CT FEDERAL PREFERRED PROVIDER ORGANIZAT ION (PPO) BASIC FAMIL Y Jan 31, 2015 [id number] MEREDITH KU NN PATIENT ANTHEM BCBS OF CT (BLUECARD) HIGH DEDUCTIBL E HEALTH PLAN [facility] HDHP Oct 06, 2018 [id number] MEREDITH KU NN PATIENT BCBS [place] HIGH DEDUCTIBL E HEALTH PLAN [facility] [place] HDHP Oct 06, 2018 [id number] MEREDITH KU NN PATIENT BCBS OF [place] HIGH DEDUCTIBL E HEALTH PLAN CLINI [facility] SUPP HDHP Oct 06, [id number] [phone] DELUISITOLY NN PATIENT BCBS OF [facility] CE ORGANIZ CLINI [facility] AND SUPPO RT Oct 06, [id number] DELUISITOLY NN PATIENT BCBS OF [facility] PREFERRED PROVIDER ORGANIZAT ION (PPO) BASIC FAMIL Y Jan 31, 2015 [id number] [id number] DEHNTAMEKALY NN PATIENT [place] FEPRX PLAN PRESCRIPT ION BCBS FEP Jan 31, 2015 [id number] MEREDITH KU NN PATIENT [place]-F EP BCBS PRESCRIPT ION BCBS FEP PLAN Jan 31, 2015 [id number] ELMIRALY NN PATIENT EXPRESS SCRIPTS PRESCRIPT ION HMO Oct 06, 2018 L4TA [id number] ELMIRALY NN PATIENT EXPRESS SCRIPTS PRESCRIPT ION CLINI [facility] RT Sep 19, 2018 L4TA [id number] DELUISITOLY NN PATIENT EXPRESS SCRIPTS ([id number]) PRESCRIPT ION HDHP Oct 06, 2018 L4TA [id number] DEHNEHLY NN PATIENT EXPRESS SCRIPTS ([id number]) PRESCRIPT ION L4TA Oct 06, 2018 L4TA [id number] DEHNEHLY NN PATIENT EXPRESS SCRIPTS ([id number]) PRESCRIPT ION L4TA HDHP Oct 06, 2018 L4TA [id number] DELUISITOLY NN PATIENT EXPRESS SCRIPTS RX PRESCRIPT ION CLINI [facility] SUPPO RT Oct 06, 2018 L4TA [id number] DEHNEH,LY NN PATIENT [id number] [facility] CE ORGANIZ CLINI [facility] AND SUPPO RT Oct 06, [id number] DEHNTAMEKALY NN PATIENT [id number] [facility] CE ORGANIZ CLINI [facility] AND SUPPO RT Oct 06, [id number] DEHNEH,LY NN PATIENT G210 BCBS ([facility]) [facility] CE ORGANIZ CLINI [facility] AND SUPPO RT Oct 06, [id number] DEHNEH,LY NN PATIENT G210 BCBS ([facility]) [facility] CE ORGANIZ CLINI [facility] AND SUPPO RT Oct 06, [id number] DEHNEH,LY NN PATIENT MEDICARE (WNR) MEDICARE () PART A Nov 19, 2006 PART A [id number] DEHNEH,LY NN PATIENT MEDICARE (WNR) MEDICARE () PART A Nov 19, 2006 PART A [id number] DEHNEH,LY NN PATIENT MEDICARE (WNR) MEDICARE () PART A Nov 19, 2006 PART A [id number] DEHNEH,LY NN PATIENT MEDICARE (WNR) MEDICARE () PART B Nov 19, 2006 PART B [id number] DEHNEH,LY NN PATIENT MEDICARE (WNR) MEDICARE () PART A Nov 19, 2006 PART A [id number] DEHNEH,LY NN PATIENT MEDICARE (WNR) MEDICARE () PART A Nov 19, 2006 PART A [id number] DEHNEH,LY NN PATIENT MEDICARE (WNR) MEDICARE () PART A Nov 19, 2006 PART A [id number] [phone] DEHNEH,LY NN PATIENT MEDICARE (WNR) MEDICARE () PART A Nov 19, 2006 PART A [id number] DEHNEH,LY NN PATIENT MEDICARE (WNR) MEDICARE () PART B Nov 19, 2006 PART B [id number] [phone] DEHNEH,LY NN PATIENT Selected Encounter This section includes the information on record at [facility] for the Encounter. Date/Time Encounter Type Encounter Description Reason Pro vider Source Sep 10, 2023 02:24 PM Outpatient Encounter TELEPHONE TRIAGE IHE Encounter Template Text not used by [facility] Plan of Treatment: Future Appointments (+ 6 months) and Future Tests (+/- 45 days) The Plan of Treatment section includes future care activities for the patient from all [place] [facility] This section includes future appointments and future orders which are active, pending or scheduled. Future Appointments This section includes appointments that were scheduled to occur 6 months from the date of the Encounter, up to a maximum of 20 appointments. The data comes from all [place] treatment facilities. Appointment Date/Time Appointment Type Appointme nt Facility Name Sep 11, 2023 03:00 PM AMBULATORY - MEDICINE [facility] Sep 13, 2023 08:00 AM AMBULATORY - MEDICINE [place] [facility] [place] [facility] Oct 29, 2023 04:00 PM AMBULATORY - [facility]RY [facility] Nov 07, 2023 02:15 PM AMBULATORY - MEDICINE [facility] Nov 08, 2023 11:00 AM AMBULATORY - MEDICINE [facility] [place] [facility] Nov 09, 2023 01:30 PM AMBULATORY - MEDICINE [facility] Nov 15, 2023 11:00 AM AMBULATORY - [facility]AB [facility] [place] Nov 16, 2023 10:30 AM AMBULATORY - NONE [facility] [place] [facility] Nov 16, 2023 11:00 AM AMBULATORY - NONE [facility] [place] [facility] Dec 04, 2023 12:00 PM AMBULATORY - MEDICINE [place] [facility] [place] [facility] Dec 27, 2023 09:30 AM AMBULATORY - MEDICINE [facility] [place] [facility] Feb 05, 2024 09:30 AM AMBULATORY - MEDICINE [place] [facility] [facility] Feb 22, 2024 01:00 PM [facility] Feb 25, 2024 01:00 PM AMBULATORY - MEDICINE [place] [facility] [place] [facility] Feb 25, 2024 03:00 PM AMBULATORY - PS[facility]CHIATRY [facility] Mar 10, 2024 09:15 AM AMBULATORY - MEDICINE [place] [facility] [facility] Social History: Smoking Status (Most [...] 11, 2022 02:50 PM [facility]TO[facility]ACCO [facility] Tobacco Use History This section includes a history of the smoking, or tobacco-related health factors, that were collected on or before the date of the Encounter. The data comes from the [place] facility where the Encounter took place. Date/Time Smoking Status/Tobacco Use Comment F acility Dec 05, 2019 01:53 PM VA-TOBACCO NEVER USED [place] [facility] [place] [facility] May 26, 2016 02:32 PM LIFETIME NON[facility]BACCO [facility] Encounter Notes: All associated encounter notes This section contains the clinical notes associated to the Encounter. Date/Time Encounter Note(s) Provider Source Sep 10, 2023 03:04 PM ADDENDUM: LOCAL TITLE: Addendum STANDARD TITLE: ADDENDUM DATE OF NOTE: SEP 10, 2023@15:04:28 ENTRY DATE: SEP 10, 2023@15:04:28 AUTHOR: DYLAN LING COSIGNER: URGENCY: STATUS: COMPLETED forwarding information reported by [place] above to PCP for review. /farhan/ JOSE CARLOS KELLEY RN-BC REGISTERED NURSE Signed: 09/10/2023 15:04 Receipt Acknowledged By: 09/13/2023 10:45 /farhan/ ELMER RO MD PRIMARY CARE PHYSICIAN --- Original Document --- 09/10/23 CCC: CLINICAL TRIAGE: Patient Demographics Patient Name: INDY KU Patient Primary Address: [address] [place] [id number] Patient Primary Phone: [phone] Patient : 1965 Patient Age: 58 Caller/Recipient Relation to Patient: Self Emergency Contact: JAYLAN BENNETT Triage Summary Conducted triage/discussed symptoms Pain Score: 9 (Severe Pain) Utilized the Triage Tool: Yes Chief Complaint: Rectal Pain System WHEN: Within 8 Hours Nurse's Recommendation / WHEN: Within 8 Hours System WHERE: Urgent care center Nurse's Recommendation / WHERE: Urgent Non-VA Patient Disposition Patient/Caregiver agrees to plan of care: No Patient is Urgent or Emergent Nursing Plan and Disposition Referred patient to higher level of care Instructed to go to Urgent Care ([facility]) Other course(s) of action Generated msg to PACT/Provider Nurse Summary Nurse Summary: Situation/Background: Seen at Urgent care [facility] over 1 week ago for external hemorrhoids, has been using sitz baths and creams as instructed and she states she has more hemorrhoids than she initially had when she went to the . TXCC Recommendation: 8 Hours Urgent Care. declines reevaluation in the urgent care. She states in the past she has required surgical intervention and is looking to speak with her PCP to get this started. Caller advised that a note would be forwarded to the PACT for follow up. Clinical Contact Center Codes Clinic/Location: V1 [facility] PHONE CCC RN [place] Triage Complete Triage Date: 09/10/2023, 02:17 PM Triage Note: Phone Triage 10 Sep 2023 18:17:25 +0000 [facility] Demographics 58 y/o Female Results CC: Rectal Pain Software suggested: Within 8 Hours Software suggested follow-up location: Urgent care center Values and Measures Duration of CC: 1 Weeks Positive Responses HPI: anal pain, severe HPI: lump, painful, protruding from anus HPI: perianal tenderness Negative Responses Denies: HPI: anal swelling Denies: HPI: skin erythema, perianal /es/ DORY BUTLER 1 IVA RN Signed: 09/10/2023 14:24 Receipt Acknowledged By: 09/10/2023 15:00 /es/ JOSE CARLOS KELLEY RN-BC REGISTERED NURSE 09/11/2023 07:52 /es/ RYLAND DE LEON LPN Licensed Practical Nurse 09/10/2023 ADDENDUM STATUS: COMPLETED Please assist with scheduling PCP appt for symptoms reported and advise her of spo sick call clinic hours of availability. /farhan/ JOSE CARLOS KELLEY RN-BC REGISTERED NURSE Signed: 09/10/2023 15:03 Receipt Acknowledged By: 09/10/2023 15:21 /es/ DEL [employer]CH[employer]S [employer] PRODUCTION MACHINE OPERATOR 09/10/2023 ADDENDUM STATUS: COMPLETED THIS COMMERCIAL RELATIONSHIP MANAGER HAD SPOKEN TO TO SCHEDULE F2F APPT WITH [facility]/SO/PACT EIGHT PROVIDER ON 09/11/2023 F2F FOR F/U HEMMOROIDS. THIS COMMERCIAL RELATIONSHIP MANAGER REQUESTED RECORDS FROM [facility]. /farhan/ DEL [employer]CH[employer] PRODUCTION MACHINE OPERATOR Signed: 09/10/2023 15:28 DYLAN LING [facility] Sep 10, 2023 03:03 PM ADDENDUM: LOCAL TITLE: Addendum STANDARD TITLE: ADDENDUM DATE OF NOTE: SEP 10, 2023@15:03 ENTRY DATE: SEP 10, 2023@15:03:01 AUTHOR: DYLAN LING COSIGNER: URGENCY: STATUS: COMPLETED Please assist [place] with scheduling PCP appt for symptoms reported and advise her of spopc sick call clinic hours of availability. /JOSE CARLOS Garnett RN- REGISTERED NURSE Signed: 09/10/2023 15:03 Receipt Acknowledged By: 09/10/2023 15:21 /farhan/ [employer] PRODUCTION MACHINE OPERATOR --- Original Document --- 09/10/23 CCC: CLINICAL TRIAGE: Patient Demographics Patient Name: INDY KU Patient Primary Address: [address] [place] [id number] Patient Primary Phone: [phone] Patient : 1965 Patient Age: 58 Caller/Recipient Relation to Patient: Self Emergency Contact: JAYLAN BENNETT Triage Summary Conducted triage/discussed symptoms Pain Score: 9 (Severe Pain) Utilized the Triage Tool: Yes Chief Complaint: Rectal Pain System WHEN: Within 8 Hours Nurse's Recommendation / WHEN: Within 8 Hours System WHERE: Urgent care center Nurse's Recommendation / WHERE: Urgent Non-VA Patient Disposition Patient/Caregiver agrees to plan of care: No Patient is Urgent or Emergent Nursing Plan and Disposition Referred patient to higher level of care Instructed to go to Urgent Care (UC) Other course(s) of action Generated msg to PACT/Provider Nurse Summary Nurse Summary: Situation/Background: Seen at [facility] [place] over 1 week ago for external hemorrhoids, has been using sitz baths and creams as instructed and she states she has more hemorrhoids than she initially had when she went to the . TXCC Recommendation: 8 Hours Urgent Care. [place] declines reevaluation in the urgent care. She states in the past she has required surgical intervention and is looking to speak with her PCP to get this started. Caller advised that a note would be forwarded to the PACT for follow up. Clinical Contact Center Codes Clinic/Location: V1 [facility] PHONE CCC RN TXCC Triage Complete Triage Date: 09/10/2023, 02:17 PM Triage Note: Phone Triage 10 Sep 2023 18:17:25 +0000 UTC Demographics 58 y/o Female Results CC: Rectal Pain Software suggested: Within 8 Hours Software suggested follow-up location: Urgent care center Values and Measures Duration of CC: 1 Weeks Positive Responses HPI: anal pain, severe HPI: lump, painful, protruding from anus HPI: perianal tenderness Negative Responses Denies: HPI: anal swelling Denies: HPI: skin erythema, perianal /es/ DORY LORAN 1 IVA RN Signed: 09/10/2023 14:24 Receipt Acknowledged By: 09/10/2023 15:00 /farhan/ JOSE CARLOS KELLEY RN-BC REGISTERED NURSE * AWAITING SIGNATURE * RYLAND DE LEON 09/10/2023 ADDENDUM STATUS: COMPLETED forwarding information reported by above to PCP for review. /farhan/ JOSE CARLOS KELLEY RN-BC REGISTERED NURSE Signed: 09/10/2023 15:04 Receipt Acknowledged By: * AWAITING SIGNATURE * ELMER RO 09/10/2023 ADDENDUM STATUS: UNSIGNED You may not VIEW this UNSIGNED Addendum. DYLAN LING [facility] [place] [facility] Sep 10, 2023 02:24 PM RN PROGRESS NOTE: LOCAL TITLE: [facility]: CLINICAL TRIAGE STANDARD TITLE: RN PROGRESS NOTE DATE OF NOTE: SEP 10, 2023@14:24:36 ENTRY DATE: SEP 10, 2023@14:24:37 AUTHOR: DORY FANG EXP COSIGNER: URGENCY: STATUS: COMPLETED CCC: CLINICAL TRIAGE Has ADDENDA Patient Demographics Patient Name: INDY KU Patient Primary Address: [address] [place] [address] [place] [address] Patient Primary Phone: [phone] Patient : 1965 Patient Age: 58 Caller/Recipient Relation to Patient: Self Emergency Contact: JAYLAN BENNETT Triage Summary Conducted triage/discussed symptoms Pain Score: 9 (Severe Pain) Utilized the Triage Tool: Yes Chief Complaint: Rectal Pain System WHEN: Within 8 Hours Nurse's Recommendation / WHEN: Within 8 Hours System WHERE: Urgent care center Nurse's Recommendation / WHERE: Urgent Non-VA Patient Disposition Patient/Caregiver agrees to plan of care: No Patient is Urgent or Emergent Nursing Plan and Disposition Referred patient to higher level of care Instructed to go to Urgent Care ([facility]) Other course(s) of action Generated msg to PACT/Provider Nurse Summary Nurse Summary: Situation/Background: Seen at Urgent care [facility] over 1 week ago for external hemorrhoids, has been using sitz baths and creams as instructed and she states she has more hemorrhoids than she initially had when she went to the . CTCC Recommendation: 8 Hours Urgent Care. [place] declines reevaluation in the urgent care. She states in the past she has required surgical intervention and is looking to speak with her PCP to get this started. Caller advised that a note would be forwarded to the PACT for follow up. Clinical Contact Center [facility]odes [facility] TX[facility] Triage Complete Triage Date: 09/10/2023, 02:17 PM Triage Note: Phone Triage 10 Sep 2023 18:17:25 +0000 [facility] Demographics 58 y/o Female Results CC: Rectal Pain Software suggested: Within 8 Hours Software suggested follow-up location: Urgent care center Values and Measures Duration of CC: 1 Weeks Positive Responses HPI: anal pain, severe HPI: lump, painful, protruding from anus HPI: perianal tenderness Negative Responses Denies: HPI: anal swelling Denies: HPI: skin erythema, perianal /es/ DORY FANG VISLj 1 IVA RN Signed: 09/10/2023 14:24 Receipt Acknowledged By: 09/10/2023 15:00 /es/ JOSE CARLOS KELLEY RN-BC REGISTERED NURSE 09/11/2023 07:52 /es/ RYLAND DE LEON LPN Licensed Practical Nurse 09/10/2023 ADDENDUM STATUS: COMPLETED Please assist with scheduling PCP appt for symptoms reported and advise her of [facility] sick call clinic hours of availability. /JOSE CARLOS Garnett RN-BC REGISTERED NURSE Signed: 09/10/2023 15:03 Receipt Acknowledged By: 09/10/2023 15:21 /farhan/ [employer] PRODUCTION MACHINE OPERATOR 09/10/2023 ADDENDUM STATUS: COMPLETED forwarding information reported by above to PCP for review. /JOSE CARLOS Garnett RN-BC REGISTERED NURSE Signed: 09/10/2023 15:04 Receipt Acknowledged By: * AWAITING SIGNATURE * ELMER RO 09/10/2023 ADDENDUM STATUS: COMPLETED THIS COMMERCIAL RELATIONSHIP MANAGER HAD SPOKEN TO TO SCHEDULE F2F APPT WITH [facility]/SO/PACT EIGHT PROVIDER ON 09/11/2023 F2F FOR F/U HEMMOROIDS. THIS COMMERCIAL RELATIONSHIP MANAGER REQUESTED RECORDS FROM [facility]. /farhan/ [employer] PRODUCTION MACHINE OPERATOR Signed: 09/10/2023 15:28 DORY FANG [facility]
--- OUTSIDE RECORDS SUMMARY | 2024-03-10 09:16 | XMS_ITS | Encounter Summary ---
Author Name [facility] [place] [facility] [place] Address [address] [place] [address] Care Team Providers Care Financial Service Professional Name Role Phone GARRETT GOOD Primary Care [...] CE ORGANIZ HMO Oct 06, 2018 O [id number] MEREDITH KU NN PATIENT ANTHEM BCBS CT FEDERAL PREFERRED PROVIDER ORGANIZAT ION (PPO) BASIC FAMIL Y Jan 31, 2015 [id number] MEREDITH KU NN PATIENT ANTHEM BCBS OF CT (BLUECARD) HIGH DEDUCTIBL E HEALTH PLAN CLINI [facility] SUP HDHP Oct 06, 2018 [id number] MEREDITH KU NN PATIENT BCBS [place] HIGH DEDUCTIBL E HEALTH PLAN CLINI [facility] [place]LA[place] HDHP Oct 06, 2018 [id number] MEREDITH KU NN PATIENT BCBS OF [place] HIGH DEDUCTIBL E HEALTH PLAN CLINI [facility]STINE SUPP HDHP Oct 06, [id number] [phone] DELUISITOLY NN PATIENT BCBS OF [place]/[facility] CE ORGANIZ CLINI [facility]INE AND SUPPO RT Oct 06, [id number] [phone] DELUISITOLY NN PATIENT BCBS OF [facility] PREFERRED PROVIDER ORGANIZAT ION (PPO) BASIC FAMIL Y Jan 31, 2015 [id number] DELUISITOLY NN PATIENT [place] FEPRX PLAN PRESCRIPT ION BCBS FEP Jan 31, 2015 [id number] ELMIRALY NN PATIENT [place]-F EP BCBS PRESCRIPT ION BCBS FEP PLAN Jan 31, 2015 [id number] ELMIRALY NN PATIENT EXPRESS SCRIPTS PRESCRIPT ION HMO Oct 06, 2018 L4TA [id number] DELUISITOLY NN PATIENT EXPRESS SCRIPTS PRESCRIPT ION [facility] RT Sep 19, 2018 L4TA [id number] DELUISITOLY NN PATIENT EXPRESS SCRIPTS ([id number]) PRESCRIPT ION [facility] Oct 06, 2018 L4TA [id number] DEHNEHLY NN PATIENT EXPRESS SCRIPTS ([id number]) PRESCRIPT ION L4TA Oct 06, 2018 L4TA [id number] DEHNEHLY NN PATIENT EXPRESS SCRIPTS ([id number]) PRESCRIPT ION L4TA HD Oct 06, 2018 L4TA [id number] DEHNTAMEKALY NN PATIENT EXPRESS SCRIPTS RX PRESCRIPT ION CLINI [facility] SUPPO RT Oct 06, 2018 L4TA [id number] DEHNEH,LY NN PATIENT [id number] [facility] CE ORGANIZ CLINI CHRISTINE AND SUPPO RT Oct 06, [id number] DELUISITOLY NN PATIENT [id number] [facility] CE ORGANIZ CLINI [facility] AND SUPPO RT Oct 06, [id number] DEHNEH,LY NN PATIENT G210 BCBSM ([facility]) [facility] CE ORGANIZ CLINI CHRISTINE AND SUPPO RT Oct 06, 2018 [id number] DEHNEH,LY NN PATIENT G210 BCBS ([facility]) [facility]GAN[facility] CL[facility] AND SUPPO RT Oct 06, [id number] DEHNEH,LY NN PATIENT MEDICARE (WNR) MEDICARE () PART A Nov 19, 2006 PART A [id number] DEHNEH,LY NN PATIENT MEDICARE (WNR) MEDICARE () PART A Nov 19, 2006 PART A [id number] DEHNEH,LY NN PATIENT MEDICARE (WNR) MEDICARE () PART B Nov 19, 2006 PART B [id number] DEHNEH,LY NN PATIENT MEDICARE (WNR) MEDICARE () PART A Nov 19, 2006 PART A [id number] DEHNEH,LY NN PATIENT MEDICARE (WNR) MEDICARE () PART A Nov 19, 2006 PART A [id number] DEHNEH,LY NN PATIENT MEDICARE (WNR) MEDICARE () PART A Nov 19, 2006 PART A [id number] DEHNEH,LY NN PATIENT MEDICARE (WNR) MEDICARE () PART A Nov 19, 2006 PART A [id number] [phone] DEHNEH,LY NN PATIENT MEDICARE (WNR) MEDICARE () PART A Nov 19, 2006 PART A [id number] DEHNEH,LY NN PATIENT MEDICARE (WNR) MEDICARE () PART B Nov 19, 2006 PART B [id number] [phone] DEHNEH,LY NN PATIENT Selected Encounter This section includes the information on record at [place] for the Encounter. Date/Time Encounter Type Encounter Description Reason Pro vider Source Sep 03, 2023 08:26 AM Outpatient Encounter ENDOCRINOLOGY IHE Encounter Template Text not used by [facility] Plan of Treatment: Future Appointments (+ 6 months) and Future Tests (+/- 45 days) The Plan of Treatment section includes future care activities for the patient from all [facility] This section includes future appointments and future orders which are active, pending or scheduled. Future Appointments This section includes appointments that were scheduled to occur 6 months from the date of the Encounter, up to a maximum of 20 appointments. The data comes from all [facility]. Appointment Date/Time Appointment Type Appointme nt Facility Name Sep 04, 2023 01:30 PM AMBULATORY - PSYCHIATRY [facility] Sep 11, 2023 03:00 PM AMBULATORY - MEDICINE [facility] Sep 13, 2023 08:00 AM AMBULATORY - MEDICINE [place] [facility] [place] [place] [facility] Oct 29, 2023 04:00 PM AMBULATORY - PSYCHIATRY [facility] Nov 07, 2023 02:15 PM AMBULATORY - MEDICINE [facility] Nov 08, 2023 11:00 AM AMBULATORY - MEDICINE [place] [facility] [place] [facility] Nov 09, 2023 01:30 PM AMBULATORY - MEDICINE [facility] Nov 15, 2023 11:00 AM AMBULATORY - REHAB MEDICIN [facility] Nov 16, 2023 10:30 AM AMBULATORY - NONE [place] [facility] [place] [facility] Nov 16, 2023 11:00 AM AMBULATORY - NONE [place] [facility] [place] [facility] Dec 04, 2023 12:00 PM AMBULATORY - MEDICINE [place] [facility] [place] [facility] Dec 27, 2023 09:30 AM AMBULATORY - MEDICINE [place] [facility] [place] [place] [facility] Feb 05, 2024 09:30 AM AMBULATORY - MEDICINE [place] [facility] [place] [facility] Feb 22, 2024 01:00 PM AMBULATORY - MEDICINE [facility] Feb 25, 2024 01:00 PM AMBULATORY - MEDICINE [place] [facility] [place] [place] [facility] Feb 25, 2024 03:00 PM [facility] [...] 11, 2022 02:50 PM VA-TOBACCO NEVER USED [facility] Tobacco Use History This section includes a history of the smoking, or tobacco-related health factors, that were collected on or before the date of the Encounter. The data comes from the [place] facility where the Encounter took place. Date/Time Smoking Status/Tobacco Use Comment Barb gonzalez Dec 05, 2019 01:53 PM VA-TOBACCO [facility]ED [facility] May 26, 2016 02:32 PM LIFETIME NON-TOBACCO USER [facility] Encounter Notes: All associated encounter notes This section contains the clinical notes associated to the Encounter. Date/Time Encounter Note(s) Provider Source Sep 03, 2023 08:26 AM LETTERS: LOCAL TITLE: PATIENT LETTER (B) STANDARD TITLE: LETTERS DATE OF NOTE: SEP 03, 2023@08:26 ENTRY DATE: SEP 03, 2023@08:26:53 AUTHOR: MARGOTH WIGGINS EXP COSIGNER: URGENCY: STATUS: COMPLETED SEP 03, 2023 INDY KU [address] [place] [address] Dear INDY KU We would like to assist you in scheduling a ENDOCRINE appointment at the [place]. We have been unable to reach you by phone. To schedule this appointment please call toll free Ext [phone]. Our booking appointment hours are Sunday through Sunday from 8:00 am to 4:00 pm. Please leave a message if you receive voicemail and let us know a good time and telephone number where we can reach you. If we dont hear back from you within 14 days from the date of this letter we will discontinue the request. If you have already scheduled this appointment, please disregard this letter. Your health is important to us. Sincerely, [facility] [address] [facility] [address] [place] [address] [place] [address] ext. [phone] [facility] [place] [facility] [address] [facility] [address] [place] [address] [place] [address] [phone] [facility] [address] [address] [place] [address] [address]. [phone] [phone] ext[address] [phone] MARGOTH WIGGINS CNTL [facility]
--- OUTSIDE RECORDS SUMMARY | 2024-03-10 09:16 | XMS_ITS | Encounter Summary ---
Author Name [facility] [place] Organization [facility] [place] Address [address] [place] [address] Care Team Providers Care Entry Clerk Name Role Phone GARRETT GOOD Primary [...] Boykin's Name Patient's Relationship to Policy [facility] CE [facility]GANIZ [facility] Oct 06, 2018 O [id number] MEREDITH KU NN PATIENT ANTHEM BCBS CT FEDERAL PREFERRED PROVIDER ORGANIZAT ION (PPO) BASIC FAMIL Y Jan 31, 2015 [id number] MEREDITH KU NN PATIENT ANTHEM BCBS OF CT (BLUECARD) HIGH DEDUCTIBL E HEALTH PLAN CLINI [facility] & SUP HDHP Oct 06, 2018 [id number] [phone] MEREDITH KU NN PATIENT BCBS [place] HIGH DEDUCTIBL E HEALTH PLAN CLINI [facility] [place] HDHP Oct 06, 2018 [id number] MEREDITH KU NN PATIENT BC[place] HIGH DEDUCTIBL E HEALTH PLAN CLINI CHRISTINE SUPP HDHP Oct 06, 2018 [id number] DEMEREDITH JORGE NN PATIENT BCBS OF [place]/[facility] CE ORGANIZ CLINI CHRISTINE AND SUPPO RT Oct 06, 2018 [id number] MEREDITH KU NN PATIENT BCBS OF [facility] PREFERRED PROVIDER ORGANIZAT ION (PPO) BASIC FAMIL Y Jan 31, 2015 [id number] ELMIRALY NN PATIENT [place] FEPRX PLAN PRESCRIPT ION BCBS FEP Jan 31, 2015 [id number] MEREDITH KU NN PATIENT [place]-F EP BCBS PRESCRIPT ION BCBS FEP PLAN Jan 31, 2015 [id number] ELMIRALY NN PATIENT EXPRESS SCRIPTS PRESCRIPT ION HMO Oct 06, 2018 L4TA [id number] DELUISITOLY NN PATIENT EXPRESS SCRIPTS PRESCRIPT ION [facility] RT Sep 19, 2018 L4TA [id number] DELUISITOLY NN PATIENT EXPRESS SCRIPTS ([id number]) PRESCRIPT ION [facility] Oct 06, 2018 L4TA [id number] DEHNEHLY NN PATIENT EXPRESS SCRIPTS ([id number]) PRESCRIPT ION L4TA Oct 06, 2018 L4TA [id number] DEHNEHLY NN PATIENT EXPRESS SCRIPTS ([id number]) PRESCRIPT ION L4TA HDHP Oct 06, 2018 L4TA [id number] DELUISITOLY NN PATIENT EXPRESS SCRIPTS RX PRESCRIPT ION [facility] RT Oct 06, 2018 L4TA [id number] DEHNEH,LY NN PATIENT [id number] [facility] CE ORGANIZ CLINI [facility] AND SUPPO RT Oct 06, 2018 [id number] DEHNTAMEKALY NN PATIENT [id number] [facility] CE ORGANIZ CLINI CHRISTINE AND SUPPO RT Oct 06, [id number] DEHNEH,LY NN PATIENT G210 BCBS ([facility]) [facility] CL[facility]I [facility] AND SUPPO RT Oct 06, [id number] DEHNEH,LY NN PATIENT G210 BCBSM ([facility]) [facility] CE ORGANIZ CLINI CHRISTINE AND SUPPO RT Oct 06, [id number] DEHNEH,LY NN PATIENT MEDICARE (WNR) MEDICARE () PART A Nov 19, 2006 PART A [id number] DEHNEH,LY NN PATIENT MEDICARE (WNR) MEDICARE ) PART A Nov 19, 2006 PART A [id number] DEHNEH,LY NN PATIENT MEDICARE (WNR) MEDICARE ) PART A Nov 19, 2006 PART A [id number] DEHNEH,LY NN PATIENT MEDICARE (WN) MEDICARE ) PART B Nov 19, 2006 PART B [id number] DEHNEH,LY NN PATIENT MEDICARE (WNR) MEDICARE () PART A Nov 19, 2006 PART A [id number] DEHNEH,LY NN PATIENT MEDICARE (WN) MEDICARE () PART A Nov 19, 2006 PART A [id number] DEHNEH,LY NN PATIENT MEDICARE (WNR) MEDICARE ) PART A Nov 19, 2006 PART A [id number] DEHNEH,LY NN PATIENT MEDICARE (WNR) MEDICARE ) PART A Nov 19, 2006 PART A [id number] DEHNEH,LY NN PATIENT MEDICARE (WNR) MEDICARE ) PART B Nov 19, 2006 PART B [id number] [phone] DEHNEH,LY NN PATIENT Selected Encounter This section includes the information on record at [place] for the Encounter. Date/Time Encounter Type Encounter Description Reason Pro vider Source Sep 03, 2023 03:52 PM Outpatient Encounter ADMIN PAT ACTIVTIES (MASNONCT) IHE Encounter Template Text not used by [place] Plan of Treatment: Future Appointments (+ 6 months) and Future Tests (+/- 45 days) The Plan of Treatment section includes future care activities for the patient from all [facility] This section includes future appointments and future orders which are active, pending or scheduled. Future Appointments This section includes appointments that were scheduled to occur 6 months from the date of the Encounter, up to a maximum of 20 appointments. The data comes from all [place] treatment facilities. Appointment Date/Time Appointment Type Appointme nt Facility Name Sep 04, 2023 01:30 PM AMBULATORY [facility]RY [facility] Sep 11, 2023 03:00 PM AMBULATORY - MEDICINE [facility] Sep 13, 2023 08:00 AM AMBULATORY - MEDICINE [place] [facility] Oct 29, 2023 04:00 PM AMBULATORY - PSYCHIATRY [facility] Nov 07, 2023 02:15 PM AMBULATORY - MEDICINE [facility] Nov 08, 2023 11:00 AM AMBULATORY - MEDICINE [place] [facility] [place] [facility] Nov 09, 2023 01:30 PM AMBULATORY - MEDICINE [facility] Nov 15, 2023 11:00 AM AMBULATORY - REHAB MEDICIN [facility] Nov 16, 2023 10:30 AM AMBULATORY - NONE [place] [facility] Nov 16, 2023 11:00 AM AMBULATORY - NONE [place] [facility] [place] [facility] Dec 04, 2023 12:00 PM AMBULATORY - MEDICINE [place] [facility] [place] [place] [facility] Dec 27, 2023 09:30 AM AMBULATORY - MEDICINE [place] [facility] [place] [place] [facility] Feb 05, 2024 09:30 AM AMBULATORY - MEDICINE [place] [facility] [place] [facility] Feb 22, 2024 01:00 PM [facility] Feb 25, 2024 01:00 PM AMBULATORY - MEDICINE [place] [facility] [place] [facility] Feb 25, 2024 03:00 PM AMBULATORY - PSYCHIATRY [facility] Social History: Smoking Status (Most current) and Tobacco Use (All prior to encounter date) This section includes the most current, and the historical, smoking and tobacco- related health factors from the [place] facility where the Encounter took place. Current Smoking Status This section includes the most current smoking, or tobacco-related health factor, from the [place] facility where the Encounter took place. Date/Time Current Smoking Status Comment Facil ity Aug 11, 2022 02:50 PM VA-TOBACCO NEVER USED [facility] Tobacco Use History This section includes a history of the smoking, or tobacco-related health factors, that were collected on or before the date of the Encounter. The data comes from the [place] facility where the Encounter took place. Date/Time Smoking Status/Tobacco Use Comment F acility Dec 05, 2019 01:53 PM VA-TOBACCO NEVER USED [facility] May 26, 2016 02:32 PM LIFETIME NON-TOBACCO USER [facility] Encounter Notes: All associated encounter notes This section contains the clinical notes associated to the Encounter. Date/Time Encounter Note(s) Provider Source Sep 03, 2023 03:52 PM MEDICATION MGT NOT E: LOCAL TITLE: OUTPATIENT MEDICATION REQUEST STANDARD TITLE: MEDICATION MGT NOTE DATE OF NOTE: SEP 03, 2023@15:52 ENTRY DATE: SEP 03, 2023@15:52:08 AUTHOR: DANIEL BARTON EXP COSIGNER: URGENCY: STATUS: COMPLETED OUTPATIENT MEDICATION REQUEST Has ADDENDA Medication Request Date of Request: Aug Is this a New Medication? No Received refill request slip in the mail for the followinG MELATONIN 3MG CAP/TAB A 0 11-20-22 09-03-23 QTY: 60 SIG: TAKE TWO CAPSULE/TABLET BY MOUTH AT BEDTIME NEEDED -FOR INSOMNIA The following actions were performed: PACT Team RN and Provider added as additional Signers to this request *Please let patient know that this request may take up to 72 hours to process.* /farhan/ DANIEL BARTON [facility] [employer] G[employer]IN FARM[employer]ER Signed: 09/03/2023 15:53 Receipt Acknowledged By: 09/03/2023 16:41 /farhan/ MINDA BERMUDEZ MD STAFF PSYCHIATRIST 09/03/2023 ADDENDUM STATUS: COMPLETED Renewal of melatonin ordered /farhan/ MINDA BERMUDEZ MD STAFF PSYCHIATRIST Signed: 09/03/2023 16:42 DANIEL BARTON [facility]
--- OUTSIDE RECORDS SUMMARY | 2024-03-10 09:17 | XMS_ITS | Encounter Summary ---
Author Name Department [facility] [place] Organization [place] Address [address] [place] [address] Care Team Providers Care Forest Botany Instructor Name Role Phone GARRETT GOOD Primary Care [...] Boykin's Name Patient's Relationship to Policy [facility]kin [email or web address] H[facility] Oct 06, 2018 HMO [id number] [phone] MEREDITH KU NN PATIENT ANTHEM BCBS CT FEDERAL PREFERRED PROVIDER ORGANIZAT ION (PPO) BASIC FAMIL Y Jan 31, 2015 [id number] MEREDITH KU NN PATIENT ANTHEM BCBS OF CT (BLUECARD) HIGH DEDUCTIBL E HEALTH PLAN CLINI [facility]INE & SUP HDHP Oct 06, 2018 [id number] [phone] MEREDITH KU NN PATIENT BCBS [place] HIGH DEDUCTIBL E HEALTH PLAN CLINI [facility] AND BLAKE HDHP Oct 06, 2018 [id number] MEREDITH KU NN PATIENT BCBS OF [place] HIGH DEDUCTIBL E HEALTH PLAN CLINI CHRISTINE SUPP HDHP Oct 06, [id number] [phone] DELUISITOLY NN PATIENT BCBS OF OR/Freightos [facility] CE ORGANIZ CLINI CHRISTINE AND SUPPO RT Oct 06, [id number] DEMEREDITH JORGE NN PATIENT BCBS OF [facility] PREFERRED PROVIDER ORGANIZAT ION (PPO) BASIC FAMIL Y Jan 31, 2015 [id number] DEHNMIGUELLY NN PATIENT [place] FEPRX PLAN PRESCRIPT ION BCBS FEP Jan 31, 2015 [id number] ELMIRALY NN PATIENT [place]-F EP BCBS PRESCRIPT ION BCBS FEP PLAN Jan 31, 2015 [id number] ELMIRALY NN PATIENT EXPRESS SCRIPTS PRESCRIPT ION HMO Oct 06, 2018 L4TA [id number] DELUISITOLY NN PATIENT EXPRESS SCRIPTS PRESCRIPT ION CLINI [facility] AND SUPPO RT Sep 19, 2018 L4TA [id number] DELUISITOLY NN PATIENT EXPRESS SCRIPTS ([id number]) PRESCRIPT ION HDHP Oct 06, 2018 L4TA [id number] DEHNEHLY NN PATIENT EXPRESS SCRIPTS ([id number]) PRESCRIPT ION L4TA Oct 06, 2018 L4TA [id number] DEHNEHLY NN PATIENT EXPRESS SCRIPTS ([id number]) PRESCRIPT ION L4TA HDHP Oct 06, 2018 L4TA [id number] DELUISITOLY NN PATIENT EXPRESS SCRIPTS RX PRESCRIPT ION CLINI [facility] AND SUPPO RT Oct 06, 2018 L4TA [id number] DEHNEH,LY NN PATIENT [id number] [facility] CE ORGANIZ CLINI CHRISTINE AND SUPPO RT Oct 06, [id number] DEHNMIGUELLY NN PATIENT [id number] [facility] CE ORGANIZ CLINI CHRISTINE AND SUPPO RT Oct 06, [id number] DEHNEH,LY NN PATIENT G210 BCBS ([facility] CE ORGANIZ CLINI CHRISTINE AND SUPPO RT Oct 06, 2018 [id number] DEHNEH,LY NN PATIENT G210 BCBS (PROFESSIO NAL) [facility] MAINTENAN CE ORGANIZ CLINI CHRISTINE AND SUPPO RT Oct 06, [id number] DEHNEH,LY NN PATIENT MEDICARE (WNR) MEDICARE () PART A Nov 19, 2006 PART A [id number] DEHNEH,LY NN PATIENT MEDICARE (WNR) MEDICARE () PART A Nov 19, 2006 PART A [id number] DEHNEH,LY NN PATIENT MEDICARE (WNR) MEDICARE () PART A Nov 19, 2006 PART A [id number] DEHNEH,LY NN PATIENT MEDICARE (WNR) MEDICARE () PART B Nov 19, 2006 PART B [id number] DEHNEH,LY NN PATIENT MEDICARE (WNR) MEDICARE () PART A Nov 19, 2006 PART A [id number] DEHNEH,LY NN PATIENT MEDICARE (WNR) MEDICARE () PART A Nov 19, 2006 PART A [id number] DEHNEH,LY NN PATIENT MEDICARE (WNR) MEDICARE () PART A Nov 19, 2006 PART A [id number] [phone] DEHNEH,LY NN PATIENT MEDICARE (WNR) MEDICARE () PART A Nov 19, 2006 PART A [id number] [phone] DEHNEH,LY NN PATIENT MEDICARE (WNR) MEDICARE () PART B Nov 19, 2006 PART B [id number] DEHNEH,LY NN PATIENT Selected Encounter This section includes the information on record at MD for the Encounter. Date/Time Encounter Type Encounter Description Reason Provider Source Sep 18, 2023 08:17 AM Outpatient Encounter PRIMARY CARE/MEDICINE MOISES,DIN EFFIE IHE Encounter Template Text not used by MD Plan of Treatment: Future Appointments (+ 6 months) and Future Tests (+/- 45 days) The Plan of Treatment section includes future care activities for the patient from all [facility]. This section includes future appointments and future orders which are active, pending or scheduled. Future Appointments This section includes appointments that were scheduled to occur 6 months from the date of the Encounter, up to a maximum of 20 appointments. The data comes from all MD treatment [facility]. Appointment Date/Time Appointment Type Appointme nt Facility Name Oct 29, 2023 04:00 PM AMBULATORY - PSYCHIATRY [facility] Nov 07, 2023 02:15 PM AMBULATORY - MEDICINE [facility] Nov 08, 2023 11:00 AM AMBULATORY - MEDICINE [place] [facility] [place] [facility] Nov 09, 2023 01:30 PM AMBULATORY - MEDICINE [facility] Nov 15, 2023 11:00 AM AMBULATORY - REHAB [facility]ICIN [facility] Nov 16, 2023 10:30 AM AMBULATORY - NONE [facility] [place] [facility] Nov 16, 2023 11:00 AM AMBULATORY - NONE [facility] [place] [facility] Dec 04, 2023 12:00 PM AMBULATORY - MEDICINE [place] [facility] [place] [facility] Dec 27, 2023 09:30 AM AMBULATORY - MEDICINE [place] [facility] [place] [place] [facility] Feb 05, 2024 09:30 AM AMBULATORY - MEDICINE [place] [facility] [place] [place] [facility] Feb 22, 2024 01:00 PM AMBULATORY - MEDICINE [facility] Feb 25, 2024 01:00 PM AMBULATORY - MEDICINE [place] [facility] [place] [facility] Feb 25, 2024 03:00 PM AMBULATORY - PSYCHIATRY [facility] Mar 10, 2024 09:15 AM AMBULATORY - MEDICINE [place] [facility] [place] [facility] Mar 13, 2024 03:00 PM AMBULATORY - MEDICINE [place] [facility] [place] [facility] Social History: Smoking Status (Most current) and Tobacco Use (All prior to encounter date) This section includes the most current, and the historical, smoking and tobacco- related health factors from the [place] facility where the Encounter took place. Current Smoking Status This section includes the most current smoking, or tobacco-related health factor, from the [place] facility where the Encounter took place. Date/Time Current Smoking Status Comment Rory nicholas Aug 11, 2022 02:50 PM VA-TOBACCO NEVER USED [facility] Tobacco Use History This section includes a history of the smoking, or tobacco-related health factors, that were collected on or before the date of the Encounter. The data comes from the [place] facility where the Encounter took place. Date/Time Smoking Status/Tobacco Use Comment F acility Dec 05, 2019 01:53 PM [facility]-TOBACCO [facility] USED [facility] May 26, 2016 02:32 PM LIFETIME NON-TOBACCO USER [facility] Encounter Notes: All associated encounter notes This section contains the clinical notes associated to the Encounter. Date/Time Encounter Note(s) Provider Source Sep 18, 2023 08:17 AM PRIMARY CARE SECUR E MESSAGING: LOCAL TITLE: PRIMARY CARE SECURE MESSAGING STANDARD TITLE: PRIMARY CARE SECURE MESSAGING DATE OF NOTE: SEP 18, 2023@08:17 ENTRY DATE: SEP 18, 2023@09:17:33 AUTHOR: RYLAND DE LEON COSIGNER: URGENCY: STATUS: COMPLETED PRIMARY CARE SECURE MESSAGING Has ADDENDA ------Original Message -------- Sent: 09/15/2023 05:11 PM ET From: LILLIAN KU To: Yessy RO,_PRIMARYCARE_[facility] Subject: General:I* saw a Rectal Doctor please let [facility] know Shari, My original appointment was scheduled for September 16, at 2:45 p.m. I actually saw Daniel Fallon (surgeon)Castro, at [facility] on September 12, to discuss my hemorrhoids and the issue of no BM for several days. Please let [facility] know JAMAL so it can be covered. In addition, I will keep the appointment with him on September 16, at 2:45 p.m. for another recheck. At that time, we will discuss bowel movements and the need for surgery in the OR, which he brought up on . Please forward this to [facility] as well. I plan on attempting to reach them([facility]) this Sunday morning, but sometimes the system does not let us contact them. I do not have their direct phone number. Thank you for your assistance Sincerely, Lillian Valdezmiguel [id number] Disabled /farhan/ RYLAND DE LEON LPN Licensed Practical Nurse Signed: 09/18/2023 09:17 Receipt Acknowledged By: 09/18/2023 12:55 /farhan/ JOSE CARLOS KELLEY RN-BC REGISTERED NURSE 10/04/2023 10:36 /farhan/ EMLER RO MD PRIMARY CARE PHYSICIAN 09/18/2023 ADDENDUM STATUS: COMPLETED Author spoke with Commodore on morning of 09/16 and advised her that consult had been placed and was pending completion of processing by CC staff. Author added comment to CC gen surg consult for review by CC staff with appt information provided. /farhan/ JOSE CARLOS KELLEY RN-BC REGISTERED NURSE Signed: 09/18/2023 12:58 RYLAND DE LEON MD [facility]
--- OUTSIDE RECORDS SUMMARY | 2024-03-10 09:17 | XMS_ITS | Encounter Summary ---
Author Name [place] Address [address] [place] [address] Care Team Providers Care Stonemason Apprentice Name Role Phone GARRETT GOOD Primary Care [...] Boykin's Name Patient's Relationship to Policy Boykin [facility] Oct 06, 2018 HMO [id number] MEREDIHT KU NN PATIENT ANTHEM BCBS CT FEDERAL PREFERRED PROVIDER ORGANIZAT ION (PPO) BASIC FAMIL Y Jan 31, 2015 [id number] MEREDITH KU NN PATIENT ANTHEM BCBS OF CT (BLUECARD) HIGH DEDUCTIBL E HEALTH PLAN CLINI CHRISTINE & SUP HDHP Oct 06, 2018 [id number] MEREDITH KU NN PATIENT BCBS [place] HIGH DEDUCTIBL E HEALTH PLAN CLINI CH[facility]STINE AND [place]LAKE HDHP Oct 06, 2018 [id number] MEREDITH KU NN PATIENT BC[place] HIGH DEDUCTIBL E HEALTH PLAN CLINI CHRISTINE SUPP HDHP Oct 06, [id number] [phone] DELUISITOLY NN PATIENT BCBS OF [place]/AppliLog [facility] CE ORGANIZ CLINI CHRISTINE AND SUPPO RT Oct 06, [id number] DEMEREDITH JORGE NN PATIENT BCBS OF [facility] PREFERRED PROVIDER ORGANIZAT ION (PPO) BASIC FAMIL Y Jan 31, 2015 [id number] DEHNTAMEKALY NN PATIENT [place] FEPRX PLAN PRESCRIPT ION BCBS FEP Jan 31, 2015 [id number] ELMIRALY NN PATIENT [place]-F EP BCBS PRESCRIPT ION BCBS FEP PLAN Jan 31, 2015 [id number] ELMIRALY NN PATIENT EXPRESS SCRIPTS PRESCRIPT ION HMO Oct 06, 2018 L4TA [id number] DELUISITOLY NN PATIENT EXPRESS SCRIPTS PRESCRIPT ION CLINI [facility] AND SUPPO RT Sep 19, 2018 L4TA [id number] DELUISITOLY NN PATIENT EXPRESS SCRIPTS ([id number]) PRESCRIPT ION HDHP Oct 06, 2018 L4TA [id number] DEHNEHLY NN PATIENT EXPRESS SCRIPTS ([id number]) PRESCRIPT ION L4TA Oct 06, 2018 L4TA [id number] DEHNEHLY NN PATIENT EXPRESS SCRIPTS ([id number]) PRESCRIPT ION L4TA HDHP Oct 06, 2018 L4TA [id number] DELUISITOLY NN PATIENT EXPRESS SCRIPTS RX PRESCRIPT ION CLINI [facility]INE AND SUPPO RT Oct 06, 2018 L4TA [id number] DEHNEH,LY NN PATIENT [id number] [facility] CE ORGANIZ CLINI CHRISTINE AND SUPPO RT Oct 06, [id number] DEHNTAMEKALY NN PATIENT [id number] [facility] CE ORGANIZ CLINI CHRISTINE AND SUPPO RT Oct 06, [id number] DEHNEH,LY NN PATIENT G210 BCBS ([facility] SUPPO RT Oct 06, 2018 [id number] DEHNEH,LY NN PATIENT G210 BCBS (PROFESSIO NAL) [facility] MAINTENAN CE ORGANIZ CLINI CHRISTINE AND SUPPO RT Oct 06, [id number] DEHNEH,LY NN PATIENT MEDICARE (WNR) MEDICARE () PART A Nov 19, 2006 PART A [id number] DEHNEH,LY NN PATIENT MEDICARE (WNR) MEDICARE () PART A Nov 19, 2006 PART A [id number] DEHNEH,LY NN PATIENT MEDICARE (WNR) MEDICARE () PART B Nov 19, 2006 PART B [id number] DEHNEH,LY NN PATIENT MEDICARE (WN) MEDICARE ) PART A Nov 19, 2006 PART A [id number] DEHNEH,LY NN PATIENT MEDICARE (WNR) MEDICARE () PART A Nov 19, 2006 PART A [id number] DEHNEH,LY NN PATIENT MEDICARE (WNR) MEDICARE () PART A Nov 19, 2006 PART A [id number] DEHNEH,LY NN PATIENT MEDICARE (WNR) MEDICARE ) PART A Nov 19, 2006 PART A [id number] DEHNEH,LY NN PATIENT MEDICARE (WNR) MEDICARE () PART A Nov 19, 2006 PART A [id number] DEHNEH,LY NN PATIENT MEDICARE (WNR) MEDICARE () PART B Nov 19, 2006 PART B [id number] [phone] DEHNEH,LY NN PATIENT Selected Encounter This section includes the information on record at [place] for the Encounter. Date/Time Encounter Type Encounter Description Reason Pro vider Source Sep 11, 2023 08:26 AM Outpatient Encounter PRIMARY CARE/MEDICINE IHE Encounter Template Text not used by [place] Plan of Treatment: Future Appointments (+ 6 months) and Future Tests (+/- 45 days) The Plan of Treatment section includes future care activities for the patient from all [place] [facility]. This section includes future appointments and future orders which are active, pending or scheduled. Future Appointments This section includes appointments that were scheduled to occur 6 months from the date of the Encounter, up to a maximum of 20 appointments. The data comes from all [place] treatment facilities. Appointment Date/Time Appointment Type Appointme nt Facility Name Sep 13, 2023 08:00 AM AMBULATORY - MEDICINE [place] [facility] [place] [facility] Oct 29, 2023 04:00 PM AMBULATORY - PSYCHIATRY [facility] Nov 07, 2023 02:15 PM AMBULATORY - MEDICINE [facility] Nov 08, 2023 11:00 AM AMBULATORY - MEDICINE [place] [facility] [place] [facility] Nov 09, 2023 01:30 PM AMBULATORY - MEDICINE [facility] Nov 15, 2023 11:00 AM AMBULATORY - REHAB [facility]ICIN [facility] [place] Nov 16, 2023 10:30 AM AMBULATORY - NONE [facility] [place] [facility] Nov 16, 2023 11:00 AM AMBULATORY - NONE [facility] [place] [facility] Dec 04, 2023 12:00 PM AMBULATORY - MEDICINE [place] [facility] [place] [facility] Dec 27, 2023 09:30 AM AMBULATORY - MEDICINE [place] [facility] [place] [facility] Feb 05, 2024 09:30 AM AMBULATORY - MEDICINE [place] [facility] [place] [facility] Feb 22, 2024 01:00 PM [facility] Feb 25, 2024 01:00 PM AMBULATORY - MEDICINE [place] [facility] [place] [facility] Feb 25, 2024 03:00 PM AMBULATORY - PSYCHIATRY [facility] Mar 10, 2024 09:15 AM AMBULATORY - MEDICINE [place] [facility] [place] [facility] Mar 13, 2024 03:00 PM AMBULATORY - MEDICINE [place] [facility] [facility] Social History: Smoking Status (Most current) and Tobacco Use (All prior to encounter date) This section includes the most current, and the historical, smoking and tobacco- related health factors from the [place] facility where the Encounter took place. Current Smoking Status This section includes the most current smoking, or tobacco-related health factor, from the [place] facility where the Encounter took place. Date/Time Current Smoking Status Comment Rory nicholas Aug 11, 2022 02:50 PM VA-TOBACCO NEVER USED [facility] Tobacco Use History This section includes a history of the smoking, or tobacco-related health factors, that were collected on or before the date of the Encounter. The data comes from the [place] facility where the Encounter took place. Date/Time Smoking Status/Tobacco Use Comment F acility Dec 05, 2019 01:53 PM VA-TOBACCO NEVER USED [place] [facility] [facility] May 26, 2016 02:32 PM [facility]ET[facility] [place] [facility] Encounter Notes: All associated encounter notes This section contains the clinical notes associated to the Encounter. Date/Time Encounter Note(s) Provider Source Sep 11, 2023 08:26 AM PRIMARY CARE Bonsai AI MESSAGING: LOCAL TITLE: PRIMARY CARE SECURE MESSAGING STANDARD TITLE: PRIMARY CARE SECURE MESSAGING DATE OF NOTE: SEP 11, 2023@08:26 ENTRY DATE: SEP 11, 2023@09:26:29 AUTHOR: MANOLO ECHOLS COSIGNER: URGENCY: STATUS: COMPLETED PRIMARY CARE SECURE MESSAGING Has ADDENDA ------Original Message -------- Sent: 09/10/2023 02:06 PM ET From: INDY KU To: Yessy RO,_PRIMARYCARE_[facility] Subject: Appointment:Recent visit to Urgent Care [facility], I am writing to inform you that I visited Urgent Care in [place] a week ago for external engorged hemorrhoids which are very painful. I have used sitz baths, and a variety of creams. I now have additional hemorrhoids. Approx. 20 years ago I experienced the same, and had them surgically removed. I'm wondering about having surgery. I am unable to lead a normal life at this time, as the pain is too much. I look forward to hearing from you with an appt. as soon as possible. /farhan/ DEL ECHOLS ADVANCED ATTENDING PATHOLOGIST Signed: 09/11/2023 09:26 Receipt Acknowledged By: 09/11/2023 09:53 /es/ DYLAN LING BSN RN- REGISTERED NURSE 09/11/2023 ADDENDUM STATUS: COMPLETED THIS HEAD OF DESIGN HAD SPOKEN TO ON 09/10/2023 AND SCHEDULED F2F APPT WITH [facility]/SO/PACT EIGHT PROVIDER FOR HEMORROIDS ON 09/11/2023 AT 15:00. /farhan/ DEL ECHOLS ADVANCED ATTENDING PATHOLOGIST Signed: 09/11/2023 09:28 MANOLO ECHOLS [place] [facility]
--- OUTSIDE RECORDS SUMMARY | 2024-03-10 09:17 | XMS_ITS | Encounter Summary ---
Author Name [facility] [facility] Address [address] [place] [address] Care Team Providers Care Laborer Yard Name Role Phone GARRETT GOOD Primary Care [...] CE ORGANIZ HMO Oct 06, 2018 O [id number] MEREDITH KU NN PATIENT ANTHEM BCBS CT FEDERAL PREFERRED PROVIDER ORGANIZAT ION (PPO) BASIC FAMIL Y Jan 31, 2015 [id number] MEREDITH KU NN PATIENT ANTHEM BCBS OF CT (BLUECARD) HIGH DEDUCTIBL E [facility] PLAN [facility] Oct 06, 2018 [id number] MEREDITH KU NN PATIENT BCBS [place] HIGH DEDUCTIBL E [facility]ALTH PLAN [facility]I [facility] [place] HDHP Oct 06, 2018 [id number] MEREDITH KU NN PATIENT BCBS OF [place] HIGH DEDUCTIBL E HEALTH PLAN CLINI [facility] SUPP HDHP Oct 06, [id number] DELUISITOLY NN [facility]IENT [facility] CE ORGANIZ CLINI [facility]STINE AND SUPPO RT Oct 06, [id number] [phone] DEMEREDITH JORGE NN PATIENT BCBS OF [facility] PREFERRED PROVIDER ORGANIZAT ION (PPO) BASIC FAMIL Y Jan 31, 2015 [id number] [phone] DEHNTAMEKALY NN PATIENT [place] FEPRX PLAN PRESCRIPT ION BCBS FEP Jan 31, 2015 [id number] MEREDITH KU NN PATIENT [place]-F EP BCBS PRESCRIPT ION BCBS FEP PLAN Jan 31, 2015 [id number] ELMIRALY NN PATIENT EXPRESS SCRIPTS PRESCRIPT ION HMO Oct 06, 2018 L4TA [id number] DELUISITOLY NN PATIENT EXPRESS SCRIPTS PRESCRIPT ION CLINI [facility]PP[facility] RT Sep 19, 2018 L4TA [id number] DEHNTAMEKALY NN PATIENT EXPRESS SCRIPTS ([id number]) PRESCRIPT ION HDHP Oct 06, 2018 L4TA [id number] DEHNEHLY NN PATIENT EXPRESS SCRIPTS ([id number]) PRESCRIPT ION L4TA Oct 06, 2018 L4TA [id number] DEHNEHLY NN PATIENT EXPRESS SCRIPTS ([id number]) PRESCRIPT ION L4TA HDHP Oct 06, 2018 L4TA [id number] DEHNTAMEKALY NN PATIENT EXPRESS SCRIPTS RX PRESCRIPT ION CLINI [facility] SUPPO RT Oct 06, 2018 L4TA [id number] DEHNEH,LY NN PATIENT [id number] [facility] CE ORGANIZ CLINI [facility] AND SUPPO RT Oct 06, [id number] DENEREYDATAMEKALY NN PATIENT [id number] [facility] CE ORGANIZ CLINI CHRISTINE AND SUPPO RT Oct 06, [id number] [phone] DEHNEH,LY NN PATIENT [id number] BCBS ([facility]) [facility] CE ORGANIZ CLINI [facility] AND SUPPO RT Oct 06, [id number] DEHNEH,LY NN PATIENT G210 BCBS ([facility]) [facility] CE ORGANIZ CLINI [facility]INE AND SUPPO RT Oct 06, [id number] DEHNEH,LY NN PATIENT MEDICARE (WNR) MEDICARE ) PART A Nov 19, 2006 PART A [id number] DEHNEH,LY NN PATIENT MEDICARE (WNR) MEDICARE ) PART A Nov 19, 2006 PART A [id number] DEHNEH,LY NN PATIENT MEDICARE (WNR) MEDICARE () PART A Nov 19, 2006 PART A [id number] DEHNEH,LY NN PATIENT MEDICARE (WN) MEDICARE ) PART B Nov 19, 2006 PART B [id number] DEHNEH,LY NN PATIENT MEDICARE (WNR) MEDICARE () PART A Nov 19, 2006 PART A [id number] DEHNEH,LY NN PATIENT MEDICARE (WNR) MEDICARE () PART A Nov 19, 2006 PART A [id number] DEHNEH,LY NN PATIENT MEDICARE (WNR) MEDICARE () PART A Nov 19, 2006 PART A [id number] DEHNEH,LY NN PATIENT MEDICARE (WNR) MEDICARE () PART A Nov 19, 2006 PART A [id number] DEHNEH,LY NN PATIENT MEDICARE (WNR) MEDICARE () PART B Nov 19, 2006 PART B [id number] DEHNEH,LY NN PATIENT Selected Encounter This section includes the [facility]. Date/Time Encounter Type Encounter Description Reason Pro vider Source Sep 12, 2023 10:30 AM Outpatient Encounter PODIATRY IHE Encounter Template Text not used by [facility] Plan of Treatment: Future Appointments (+ 6 months) and Future Tests (+/- 45 days) The Plan of Treatment section includes future care activities for the patient from all [place] [facility]. This section includes future appointments and future orders which are active, pending or scheduled. Future Appointments This section includes appointments that were scheduled to occur 6 months from the date of the Encounter, up to a maximum of 20 appointments. The data comes from all [place] treatment facilities. Appointment Date/Time Appointment Type Appointme nt Facility Name Sep 13, 2023 08:00 AM AMBULATORY [facility]ICINE [facility] [place] Oct 29, 2023 04:00 PM AMBULATORY - PSYCHIATRY [facility] Nov 07, 2023 02:15 PM AMBULATORY - MEDICINE [facility] Nov 08, 2023 11:00 AM AMBULATORY - MEDICINE [facility] Nov 09, 2023 01:30 PM AMBULATORY - MEDICINE [facility] Nov 15, 2023 11:00 AM AMBULATORY - REHAB [facility] [place] Nov 16, 2023 10:30 AM AMBULATORY - NONE [facility] [place] [facility] Nov 16, 2023 11:00 AM AMBULATORY - NONE [facility] [place] Dec 04, 2023 12:00 PM AMBULATORY - MEDICINE [facility] Dec 27, 2023 09:30 AM AMBULATORY - MEDICINE [facility] Feb 05, 2024 09:30 AM AMBULATORY - MEDICINE [facility] [facility] Feb 22, 2024 01:00 PM AMBULATORY - MEDICINE [facility] Feb 25, 2024 01:00 PM AMBULATORY - MEDICINE [facility] [facility] Feb 25, 2024 03:00 PM AMBULATORY - PSYCHIATRY [facility] Mar 10, 2024 09:15 AM AMBULATORY - MEDICINE [facility] [facility] Mar 13, 2024 03:00 PM AMBULATORY - MEDICINE [facility] Social History: Smoking Status (Most current) and Tobacco Use (All prior to encounter date) This section includes the most current, and the historical, smoking and tobacco- related health factors from the [place] facility where the Encounter took place. Current Smoking Status This section includes the most current smoking, or tobacco-related health factor, from the [place] facility where the Encounter took place. Date/Time Current Smoking Status Comment Rory ity Aug 11, 2022 02:50 PM VA-TOBACCO NEVER USED [facility] Tobacco Use History This section includes a history of the smoking, or tobacco-related health factors, that were collected on or before the date of the Encounter. The data comes from the [place] facility where the Encounter took place. Date/Time Smoking Status/Tobacco Use Comment F acility Dec 05, 2019 01:53 PM [facility] May 26, 2016 02:32 PM LIFETIME NON-TOBACCO USER [facility] Encounter Notes: All associated encounter notes This section contains the clinical notes associated to the Encounter. Date/Time Encounter Note(s) Provider Source Sep 12, 2023 11:23 AM ADMINISTRATIVE NOTE: LOCAL TITLE: ADMINISTRATIVE RECALL NOTE STANDARD TITLE: ADMINISTRATIVE NOTE DATE OF NOTE: SEP 12, 2023@11:23 ENTRY DATE: SEP 12, 2023@11:23:16 AUTHOR: REYNA DELGADO EXP COSIGNER: URGENCY: STATUS: COMPLETED RTC orders: Unable to contact patient: Attempts to contact: 1st attempt: Left voicemail 2nd attempt: Letter mailed 3rd attempt: 4th attempt: /farhan/ REYNA DELGADO LEAD EDUCATIONAL SIGN LANGUAGE INTERPRETER Signed: 09/12/2023 11:23 REYNA DELGADO [facility] Sep 12, 2023 11:22 AM LETTERS: LOCAL TITLE: PATIENT LETTER (B) STANDARD TITLE: LETTERS DATE OF NOTE: SEP 12, 2023@11:22 ENTRY DATE: SEP 12, 2023@11:22:49 AUTHOR: REYNA DELGADO EXP COSIGNER: URGENCY: STATUS: COMPLETED SEP 12, 2023 INDY KU [address] [place] [address] Dear INDY KU Thank you for choosing the [facility] as your primary choice for health care. As a partner in your health care, we are contacting you in writing since we have been unsuccessful in our attempts to reach you to date. We want to assure you we are doing everything possible to schedule Veterans for their [place] medical care appointments. Our records indicate that you are due for an appointment in PODIATRY If you would like to be seen, please contact [facility] at ext. [phone] to schedule an appointment. Thank you for your service to our nation, and we look forward to hearing from you soon. Sincerely, [facility] [address] [place] [address] [place] [address] [phone] [facility] [address] [facility] [address] [place] [address] [place] [address] ext. [phone] [facility] [address] [facility] [address] [place] [address] [place] [address] ext. [phone] REYNA DELGADO [facility]
--- OUTSIDE RECORDS SUMMARY | 2024-03-10 09:17 | XMS_ITS | Encounter Summary ---
Author Name [facility] [place] [facility] [place] [facility] [place] [facility] [place] Address [address] [place] [address] Care Team Providers Care Information Technology Program Manager Name Role Phone GARRETT GOOD Primary Care [...] Boykin's Name Patient's Relationship to Policy Boykin [facility] CE ORGANIZ HMO Oct 06, 2018 O [id number] MEREDITH KU NN PATIENT ANTHEM BCBS CT FEDERAL PREFERRED PROVIDER ORGANIZAT ION (PPO) BASIC FAMIL Y Jan 31, 2015 [id number] MEREDITH KU NN PATIENT ANTHEM BCBS OF CT (BLUECARD) HIGH DEDUCTIBL E HEALTH PLAN CLINI [facility]P HDHP Oct 06, 2018 [id number] MEREDITH KU NN PATIENT BCBS [place] HIGH DEDUCTIBL E HEALTH PLAN CLINI [facility] [place] HDHP Oct 06, 2018 [id number] MEREDITH KU NN PATIENT BCBS OF [place] HIGH DEDUCTIBL E HEALTH PLAN CLINI [facility] SUPP HDHP Oct 06, 2018 [id number] [phone] ATTILATAMEKALY NN PATIENT BCBS OF OR/[facility] CE ORGANIZ CLINI [facility] AND SUPPO RT Oct 06, [id number] [phone] DEHNTAMEKALY NN PATIENT BCBS OF [facility] PREFERRED PROVIDER ORGANIZAT ION (PPO) BASIC FAMIL Y Jan 31, 2015 [id number] DELUISITOLY NN PATIENT [place] FEPRX PLAN PRESCRIPT ION BCBS FEP Jan 31, 2015 [id number] ELMIRALY NN PATIENT [place]-F EP BCBS PRESCRIPT ION BCBS FEP PLAN Jan 31, 2015 [id number] ELMIRALY NN PATIENT EXPRESS SCRIPTS PRESCRIPT ION HMO Oct 06, 2018 L4TA [id number] DENEREYDATAMEKALY NN PATIENT EXPRESS SCRIPTS PRESCRIPT ION CLINI [facility] RT Sep 19, 2018 L4TA [id number] DELUISITOLY NN PATIENT EXPRESS SCRIPTS ([id number]) PRESCRIPT ION HDHP Oct 06, 2018 L4TA [id number] DEHNTAMEKALY NN PATIENT EXPRESS SCRIPTS ([id number]) PRESCRIPT ION L4TA Oct 06, 2018 L4TA [id number] DEHNEHLY NN PATIENT EXPRESS SCRIPTS ([id number]) PRESCRIPT ION L4TA HDHP Oct 06, 2018 L4TA [id number] DELUISITOLY NN PATIENT EXPRESS SCRIPTS RX PRESCRIPT ION CLINI [facility] SUPPO RT Oct 06, 2018 L4TA [id number] DELUISITO,LY NN PATIENT [id number] [facility] CE ORGANIZ CLIN[facility] SUPPO RT Oct 06, [id number] ELMIRALY NN PATIENT [id number] [facility] CE ORGANIZ CLINI CHRISTINE AND SUPPO RT Oct 06, [id number] [phone] DEHNEH,LY NN PATIENT G210 [facility] SUPPO RT Oct 06, [id number] DEHNEH,LY NN PATIENT G210 BCBS ([facility]) [facility] SUPPO RT Oct 06, [id number] DEHNEH,LY NN PATIENT MEDICARE (WNR) MEDICARE ) PART A Nov 19, 2006 PART A [id number] DEHNEH,LY NN PATIENT MEDICARE (WNR) MEDICARE ) PART A Nov 19, 2006 PART A [id number] DEHNEH,LY NN PATIENT MEDICARE (WN) MEDICARE ) PART B Nov 19, 2006 PART B [id number] DEHNEH,LY NN PATIENT MEDICARE (WN) MEDICARE ) PART A Nov 19, 2006 PART A [id number] DEHNEH,LY NN PATIENT MEDICARE (WNR) MEDICARE () PART A Nov 19, 2006 PART A [id number] DEHNEH,LY NN PATIENT MEDICARE (WNR) MEDICARE ) PART A Nov 19, 2006 PART A [id number] DEHNEH,LY NN PATIENT MEDICARE (WNR) MEDICARE ) PART A Nov 19, 2006 PART A [id number] DEHNEH,LY NN PATIENT MEDICARE (WNR) MEDICARE ) PART A Nov 19, 2006 PART A [id number] [phone] DEHNEH,LY NN PATIENT MEDICARE (WNR) MEDICARE () PART B Nov 19, 2006 PART B [id number] DEHNEH,LY NN PATIENT Selected Encounter This section includes the information on record at [place] for the Encounter. Date/Time Encounter Type Encounter Description Reason Provider Source Sep 11, 2023 03:00 PM OFFICE O/P EST LOW 20 MIN PRIMARY CARE/MEDICINE ICD-10-CM K64.8 Other hemorrhoids ELMER RO [facility] Encounter Template Text not used by [place] Assessments - Encounter Diagnoses This section includes the primary and secondary diagnoses documented for the Encounter. Date/Time Primary/Secondary Diagnosis Diagnosis Name Provider Source Sep 11, 2023 03:41 PM PRIMARY Other hemorrhELMER Richter [facility] Plan of Treatment: Future Appointments (+ 6 months) and Future Tests (+/- 45 days) The Plan of Treatment section includes future care activities for the [facility] [place] [facility] This section includes future appointments and future orders which are active, pending or scheduled. Future Appointments This section includes appointments that were scheduled to occur 6 months from the date of the Encounter, up to a maximum of 20 appointments. The data comes from all [place] treatment facilities. Appointment Date/Time Appointment Type Appointme nt Facility Name Sep 13, 2023 08:00 AM AMBULATORY - MEDICINE [facility] [place] [facility] Oct 29, 2023 04:00 PM AMBULATORY - PSYCHIATRY [facility] Nov 07, 2023 02:15 PM AMBULATORY - MEDICINE [facility] Nov 08, 2023 11:00 AM AMBULATORY - MEDICINE [facility] [place] [facility] Nov 09, 2023 01:30 PM AMBULATORY - MEDICINE [facility] Nov 15, 2023 11:00 AM [facility] Nov 16, 2023 10:30 AM AMBULATORY - NONE [facility] [place] [facility] Nov 16, 2023 11:00 AM AMBULATORY - NONE [facility] [place] [facility] Dec 04, 2023 12:00 PM AMBULATORY - MEDICINE [facility] [place] [facility] Dec 27, 2023 09:30 AM AMBULATORY - MEDICINE [facility] [place] [facility] Feb 05, 2024 09:30 AM AMBULATORY - MEDICINE [facility] [place] [facility] Feb 22, 2024 01:00 PM AMBULATORY - MEDICINE [facility] Feb 25, 2024 01:00 PM AMBULATORY - MEDICINE [facility] [place] [facility] Feb 25, 2024 03:00 PM AMBULATORY - PSYCHIATRY [facility] Mar 10, 2024 09:15 AM AMBULATORY - MEDICINE [facility] [place] [facility] Mar 13, 2024 03:00 PM AMBULATORY - MEDICINE [facility] [place] [facility] Vital Signs: All taken on the encounter date This section contains inpatient and outpatient Vital Signs collected on the date of the Encounter. Date/Time Temperature Pulse Blood Pressure Respiratory Rate SP02 Pain Height Weight Body Mass Index Source Sep 11, 2023 03:03 PM 82 113/77 98 252 43 [place] Social History: Smoking Status (Most current) and Tobacco Use (All prior to encounter date) This section includes the most current, and the historical, smoking and tobacco- related health factors from the [place] facility where the Encounter took place. Current Smoking Status This section includes the most current smoking, or tobacco-related health factor, from the [place] facility where the Encounter took place. Date/Time Current Smoking Status Comment Facil ity Sep 11, 2023 03:00 PM [place]-TOBACCO NEVER USED [facility] Tobacco Use History This section includes a history of the smoking, or tobacco-related health factors, that were collected on or before the date of the Encounter. The data comes from the [place] facility where the Encounter took place. Date/Time Smoking Status/Tobacco Use Comment F acility Nov 22, 2020 11:00 AM VA-TOBACCO NEVER USED [facility] Jan 31, 2018 09:33 AM VA-TOBACCO NEVER USED [facility] May 10, 2017 01:08 PM LIFETIME NON-TOBACCO USER [facility] Mar 02, 2015 09:05 AM LIFETIME NON-TOBACCO USER [facility] July 10, 2001 02:49 PM LIFETIME NON-TOBACCO USER [facility] Encounter Notes: All associated encounter notes This section contains the clinical notes associated to the Encounter. Date/Time Encounter Note(s) Provider Source Sep 11, 2023 03:15 PM PHYSICIAN NOTE: LOCAL TITLE: MD NOTE STANDARD TITLE: PHYSICIAN NOTE DATE OF NOTE: SEP 11, 2023@15:15 ENTRY DATE: SEP 11, 2023@15:15:53 AUTHOR: ELMER RO EXP COSIGNER: URGENCY: STATUS: COMPLETED HISTORY OF PRESENT ILLNESS: INDY KU, is a 58 yo FEMALE , with PMH significant for diabetes mellitus type 2, obesity, hypercholesterolemia, high blood pressure(20 years ago-resolved with weight loss), asthma, undifferentiated connective tissue dx, genital herpes who presents at the [facility] for c/o hemorrhoidal pain for the last 1 week. she went to urgent care 1 week ago, and she was diagnosed with UTI nad hemorrhoids. she was d/c with Cipro for UTI and Hydrocortisone cream 1% for her hemorrhoids. She was advised to follow-up with PCP if not improvement. She states her hemorrhoids got bigger and painful. Active problems - Computerized Problem List is the source for the following: External hemorrhoids The following VA and Non-VA meds were reconciled with patient: Active Outpatient Medications (including Supplies): Issue Date Status Last Fill Active Outpatient Medications Refills Expiration 1) ACCU-CHEK GUIDE (GLUCOSE) TEST STRIP ACTIVE (S) Issu:05-18-23 Qty: 50 for 180 days Sig: USE 1 STRIP Refills: 0 Last:12-04-23 TO TEST BLOOD SUGARS TWO TIMES A WEEK Expr:05-18-24 2) ACCU-CHEK GUIDE ME (GLUCOSE) METER Qty: ACTIVE Issu:07-06-23 1 for 90 days Sig: USE METER TO TEST Refills: 0 Last:07-09-23 BLOOD SUGARS ONCE DAILY Expr:10-04-23 3) CHOLECALCIF 25MCG (D3-1,000UNIT) TAB ACTIVE (S) Issu:12-15-22 Qty: 100 for 90 days Sig: TAKE ONE Refills: 0 Last:11-07-23 TABLET BY MOUTH ONCE DAILY FOR VITAMIN Expr:12-16-23 SUPPLEMENTATION 4) DICLOFENAC NA 1% TOP GEL Qty: 100 for ACTIVE Issu:12-15-22 30 days Sig: APPLY 2 GRAMS TOPICALLY Refills: 0 Last:09-16-23 FOUR TIMES DAILY NEEDED FOR Expr:12-16-23 OSTEOARTHRITIS - USE DOSING CARD PROVIDED IN BOX 5) ESCITALOPRAM OXALATE 20MG TAB Qty: 30 ACTIVE Issu:04-20-23 for 30 days Sig: TAKE ONE TABLET BY Refills: 9 Last:07-05-23 MOUTH ONCE DAILY FOR MOOD Expr:04-20-24 6) MELATONIN 3MG CAP/TAB Qty: 60 for 30 ACTIVE (S) Issu:09-03-23 days Sig: TAKE TWO CAPSULE/TABLET BY Refills: 11 Last:09-23-23 MOUTH AT BEDTIME NEEDED -FOR Expr:09-03-24 INSOMNIA 7) METFORMIN HCL 500MG 24HR SA TAB Qty: ACTIVE (S) Issu:07-06-23 120 for 60 days Sig: TAKE TWO TABLETS Refills: 1 Last:10-25-23 BY MOUTH ONCE DAILY FOR TYPE 2 Expr:07-06-24 DIABETES MELLITUS 8) NAPROXEN 500MG TAB Qty: 60 for 30 days ACTIVE Issu:12-15-22 Sig: TAKE ONE TABLET BY MOUTH TWICE Refills: 0 Last:08-19-23 DAILY FOR PAIN TAKE WITH FOOD Expr:12-16-23 9) QUETIAPINE FUMARATE 25MG TAB Qty: 120 ACTIVE (S) Issu:04-20-23 for 30 days Sig: TAKE ONE TABLET BY Refills: 1 Last:09-28-23 MOUTH AT BEDTIME NEEDED FOR Expr:04-20-24 ANXIETY. YOU MAY TAKE UP TO THREE ADDITIONAL TABLETS AT BEDTIME IF NEEDED. 10) TRAZODONE HCL 100MG TAB Qty: 60 for 30 ACTIVE (S) Issu:04-20-23 days Sig: TAKE TWO TABLETS BY MOUTH Refills: 1 Last:09-25-23 AT BEDTIME NEEDED FOR INSOMNIA Expr:04-20-24 ASSOCIATED WITH DEPRESSION 11) VALACYCLOVIR HCL 500MG TAB Qty: 30 for ACTIVE Issu:04-02-23 30 days Sig: TAKE ONE TABLET BY MOUTH Refills: 3 Last:09-08-23 ONCE DAILY FOR INFECTION CAUSED BY A Expr:04-02-24 VIRUS Start Date Active Non-VA Medications Refills Expiration 1) Non-VA ALBUTEROL INHALER INHL,ORAL Sig: ACTIVE BY MOUTH NEEDED 2) Non-VA HYDROXYCHLOROQUINE SULFATE 200MG ACTIVE TAB SiMG BY MOUTH TWICE DAILY 13 Total Medications ALLERGIES: ========= [facility] LAB HISTORY: no new labs HISTORY: PERIOD OF SERVICE - [facility] FROM June TO June COMBAT SERVICE INDICATED: No REVIEW OF SYSTEMS: No fever, chills, Hemorrhoidal pain; 1 episode of bleeding last week PHYSICAL EXAMINATION: WD/obese [place] seems to be in distress due to hemorrhoidal pain, not able to sit down 3 External hemorrhoids; no bleeding noticed at this time AAO x3; ambulates without help ASSESSMENT/PLAN: External hemorrhoids-see HPI Most probably she has internal hemorrhoids too. She states had hemorrhoidal surgery more than 25 years ago; Hemorrhoidal suppository ordered and the was advised to use it once a day as needed; she will picking supervisor the prescription prior to leave the office Surgery consultation placed FOLLOW UP: ========= RTC -November follow-up for chronic medical conditions Today's documentation was made using voice recognition software. This note may contain spelling/grammatical errors secondary to this software. Every effort is made to correct errors, but if mistakes are found they need to be taken in context. UPCOMING APPOINTMENTS: 09/12/2023 10:30 CWM/NO/PODIATRY A 10/04/2023 13:30 CWM/SO/VVC/MHC/BERMUDEZ 11/08/2023 11:00 NHM/ENDOCRINE 11/14/2023 14:15 CWM/NO/DENTAL/RDH1 PM 12/04/2023 13:30 CWM/SO/PACT [...] of active outpatient prescriptions dispensed from this [place] (local) and dispensed from another [place] or [facility] facility (remote) as well as inpatient orders [...] JLV. Allergies/ADRs (Tool #5) FACILITY ALLERGY/ADR -------- [facility] [place] [facility]HEN[facility] SIMVASTATIN Med Recon NoGlossary (Tool #1) INCLUDED IN THIS LIST: Alphabetical list of active outpatient prescriptions dispensed from this [place] (local) and dispensed from another [place] or [facility] facility (remote) as well as inpatient orders (local pending and active), local clinic medications, locally documented non-VA medications, and local prescriptions that have or been discontinued in the past 90 days. Non-VA Meds Last Documented On: July 07, 2019 NOTE The display of VA prescriptions dispensed from another [place] or [facility] facility (remote) is limited to active outpatient prescription entries matched to National Drug File at the originating site and may not include some items such as investigational drugs, compounds, etc. NOT INCLUDED IN THIS LIST: Medications self-entered by the patient into personal health records (i.e. evolso) are NOT included in this list. Non-VA medications documented outside this [place], remote inpatient orders (regardless of status) and remote clinic medications are NOT included in this list. The patient and provider must always discuss medications the patient is taking, regardless of where the medication was dispensed or obtained. Non-VA ALBUTEROL INHALER INHL,ORAL INHALE BY MOUTH NEEDED Medication prescribed by Non-VA provider. for URI non -va OUTPT CHOLECALCIF 25MCG (D3-1,000UNIT) TAB (Status = Active/Suspended) TAKE ONE TABLET BY MOUTH ONCE DAILY FOR VITAMIN SUPPLEMENTATION Rx# [id number] Last Released: 08/17/23 Qty/Days Supply: Rx Expiration Date: 12/16/23 Refills Remainin Indication: FOR VITAMIN D DEFICIENCY OUTPT CHOLECALCIF 25MCG (D3-1,000UNIT) TAB (Status = Pending) TAKE ONE TABLET BY MOUTH ONCE DAILY FOR VITAMIN SUPPLEMENTATION Renewed from Rx# [id number] Qty/Days Supply: Login Date: 09/11/23 Refills Ordered: 2 OUTPT DICLOFENAC NA 1% TOP GEL (Status = Active) APPLY 2 GRAMS TOPICALLY FOUR TIMES DAILY NEEDED FOR OSTEOARTHRITIS - USE DOSING CARD PROVIDED IN BOX Rx# [id number] Last Released: 09/04/23 Qty/Days Supply: / Rx Expiration Date: 12/16/23 Refills Remainin OUTPT DICLOFENAC NA 1% TOP GEL (Status = Pending) APPLY 2 GRAMS TOPICALLY FOUR TIMES DAILY NEEDED FOR OSTEOARTHRITIS - USE DOSING CARD PROVIDED IN BOX Renewed from Rx# [id number] Qty/Days Supply: 100/30 Login Date: 09/11/23 Refills Ordered: 5 OUTPT ESCITALOPRAM OXALATE 20MG TAB (Status = Active) TAKE ONE TABLET BY MOUTH ONCE DAILY FOR MOOD Rx# [id number] Last Released: 07/06/23 Qty/Days Supply: 30 Rx Expiration Date: 04/20/24 Refills Remainin Remote HYDROXYCHLOROQUINE SO4 200MG TAB TAKE ONE TABLET BY MOUTH TWICE A DAY Last Filled: 05/02/23 (Active at [facility]) Rx Expiration Date: 12/21/23 Days Supply: 90 Non-VA HYDROXYCHLOROQUINE SULFATE 200MG TAB TAKE ONE TABLET BY MOUTH TWICE DAILY prescribed thr [facility] OUTPT MELATONIN 3MG CAP/TAB (Status = Discontinued) TAKE TWO CAPSULE/TABLET BY MOUTH AT BEDTIME NEEDED -FOR INSOMNIA Rx# [id number] Last Released: 08/27/23 Qty/Days Supply: 60 Rx Expiration Date: 11/21/23 Refills Remainin OUTPT MELATONIN 3MG CAP/TAB (Status = Active/Suspended) TAKE TWO CAPSULE/TABLET BY MOUTH AT BEDTIME NEEDED -FOR INSOMNIA Rx# [id number] Last Released: Qty/Days Supply: Rx Expiration Date: 09/03/24 Refills Remainin OUTPT METFORMIN HCL 500MG 24HR SA TAB (Status = Active/Suspended) TAKE TWO TABLETS BY MOUTH ONCE DAILY FOR TYPE 2 DIABETES MELLITUS Rx# [id number] Last Released: 08/17/23 Qty/Days Supply: 120/60 Rx Expiration Date: 07/06/24 Refills Remainin Indication: FOR TYPE 2 DIABETES MELLITUS OUTPT METFORMIN HCL 750MG 24HR SA TAB (Status = Discontinued) TAKE TWO TABLETS BY MOUTH EVERY MORNING Rx# [id number] Last Released: 12/19/22 Qty/Days Supply: 180/90 Rx Expiration Date: 12/16/23 Refills Remainin Indication: FOR TYPE 2 DIABETES MELLITUS OUTPT NAPROXEN 500MG TAB (Status = Active) TAKE ONE TABLET BY MOUTH TWICE DAILY FOR PAIN TAKE WITH FOOD Rx# [id number] Last Released: 08/17/23 Qty/Days Supply: 60/30 Rx Expiration Date: 12/16/23 Refills Remainin Indication: FOR PAIN OUTPT NAPROXEN 500MG TAB (Status = Pending) TAKE ONE TABLET BY MOUTH TWICE DAILY FOR PAIN TAKE WITH FOOD Renewed from Rx# [id number] Qty/Days Supply: 60 Login Date: 09/11/23 Refills Ordered: 3 OUTPT PHENYLEPHRINE HCL 0.25% RTL SUPP (Status = Pending) INSERT 1 SUPPOSITORY(IES) RECTALLY ONCE DAILY NEEDED Login Date: 09/11/23 Qty/Days Supply: Refills Ordered: 0 OUTPT QUETIAPINE FUMARATE 25MG TAB (Status = Active/Suspended) TAKE ONE TABLET BY MOUTH AT BEDTIME NEEDED FOR ANXIETY. YOU MAY TAKE UP TO THREE ADDITIONAL TABLETS AT BEDTIME IF NEEDED. Rx# [id number] Last Released: 08/27/23 Qty/Days Supply: 120/30 Rx Expiration Date: 04/20/24 Refills Remainin Indication: FOR BIPOLAR DEPRESSION OUTPT TRAZODONE HCL 100MG TAB (Status = Active/Suspended) TAKE TWO TABLETS BY MOUTH AT BEDTIME NEEDED FOR INSOMNIA ASSOCIATED WITH DEPRESSION Rx# [id number] Last Released: 08/16/23 Qty/Days Supply: 6030 Rx Expiration Date: 04/20/24 Refills Remainin Indication: FOR INSOMNIA ASSOCIATED WITH DEPRESSION OUTPT VALACYCLOVIR HCL 500MG TAB (Status = Active) TAKE ONE TABLET BY MOUTH ONCE DAILY FOR INFECTION CAUSED BY A VIRUS Rx# [id number] Last Released: 09/04/23 Qty/Days Supply: 30 Rx Expiration Date: 04/02/24 Refills Remainin Indication: FOR INFECTION CAUSED BY A VIRUS SUPPLIES OUTPT ACCU-CHEK GUIDE (GLUCOSE) TEST STRIP (Status = Active/Suspended) USE 1 STRIP TO TEST BLOOD SUGARS TWO TIMES A WEEK Rx# [id number] Last Released: 06/09/23 Qty/Days Supply: 50/180 Rx Expiration Date: 05/18/24 Refills Remainin OUTPT ACCU-CHEK GUIDE (GLUCOSE) TEST STRIP (Status = Pending) USE 1 STRIP TO TEST BLOOD SUGARS TWO TIMES A WEEK Renewed from Rx# [id number] Qty/Days Supply: 50/180 Login Date: 09/11/23 Refills Ordered: 1 OUTPT ACCU-CHEK GUIDE ME (GLUCOSE) METER (Status = Active) USE METER TO TEST BLOOD SUGARS ONCE DAILY Rx# [id number] Last Released: 07/10/23 Qty/Days Supply: Rx Expiration Date: 10/04/23 Refills Remainin /farhan/ ELMER RO MD PRIMARY CARE PHYSICIAN Signed: 09/11/2023 15:41 ELMER RO [facility] Sep 11, 2023 03:04 PM PREVENTIVE MEDICIN E NURSING NOTE: LOCAL TITLE: CLINICAL REMINDERS/NURSING STANDARD TITLE: PREVENTIVE MEDICINE NURSING NOTE DATE OF NOTE: SEP 11, 2023@15:04 ENTRY DATE: SEP 11, 2023@15:04:11 AUTHOR: RYLAND DE LEON COSIGNER: URGENCY: STATUS: COMPLETED CLINICAL REMINDERS/NURSING Has ADDENDA BMI>30/>24.99 High Risk: Patient declines to discuss weight management. Patient declined weight discussion. Discussed revisiting at a future visit. Homelessness/Food Insecurity Screen: In the past 2 months, have you been living in stable housing that you own, rent, or stay in as part of a household? Yes - Living in stable housing. Are you worried or concerned that in the next 2 months you may NOT have stable housing that you own, rent, or stay in as part of a household? No - Not worried about housing near future The [place] reports the following: Within the past 12 months, you worried whether your food would run out before you got money to buy more. Never true Within the past 12 months, the food you bought just didn't last and you didn't have money to get more. Never true Tobacco Use Screening: The patient has never used tobacco. COVID-19 Immunization: Refused Moderna Monovalent COVID-19 vaccine Immunization: COVID-19 (MODERNA), MRNA, LNP-S, PF, 50 MCG/0.5 ML (AGES 12+ YEARS) Refusal Reason: PATIENT DECISION Patient refuses all immunization(s) in the COVID-19 group Date Documented: 09/11/23 15:04 Sexual Orientation: The patient thinks of their sexual orientation as: Lesbian or Patino /farhan/ RYLAND DE LEON LPN Licensed Practical Nurse Signed: 09/11/2023 15:05 09/11/2023 ADDENDUM STATUS: COMPLETED === PROVIDER TO ADDRESS MAMMOGRAM AND REST OF THE REMINDERS== /farhan/ RYLAND DE LEON LPN Licensed Practical Nurse Signed: 09/11/2023 15:06 RYLAND DE LEON
--- OUTSIDE RECORDS SUMMARY | 2024-03-10 09:17 | XMS_ITS | Encounter Summary ---
Author Name [place] Address [address] [place] [address] Care Team Providers Care Trade Marker Name Role Phone GARRETT GOOD Primary Care [...] Boykin's Name Patient's Relationship to Policy Boykin [facility] CE ORGANIZ HMO Oct 06, 2018 [id number] [phone] MEREDITH KU NN PATIENT ANTHEM BCBS CT FEDERAL PREFERRED PROVIDER ORGANIZAT ION (PPO) BASIC FAMIL Y Jan 31, 2015 112 [id number] MEREDITH KU NN PATIENT ANTHEM BCBS OF CT (BLUECARD) HIGH DEDUCTIBL E HEALTH PLAN CLINI [facility]STINE & SUP HDHP Oct 06, 2018 [id number] [phone] MEREDITH KU NN PATIENT BCBS [place] HIGH DEDUCTIBL E HEALTH PLAN CLINI CHRISTINE AND BLAKE HDHP Oct 06, 2018 [id number] MEREDITH KU NN PATIENT BCBS OF [place] HIGH DEDUCTIBL E HEALTH PLAN CLINI CHRISTINE SUPP HDHP Oct 06, [id number] [phone] DELUISITOLY NN PATIENT BCBS OF [facility] CE ORGANIZ CLINI CHRISTINE AND SUPPO RT Oct 06, [id number] DEMEREDITH JORGE NN PATIENT BCBS OF [facility] PREFERRED PROVIDER ORGANIZAT ION (PPO) BASIC FAMIL Y Jan 31, 2015 [id number] [phone] DEHNTAMEKALY NN PATIENT [place] FEPRX PLAN PRESCRIPT ION BCBS FEP Jan 31, 2015 [id number] MEREDITH KU NN PATIENT CAR[place]ARK-F EP BCBS PRESCRIPT ION BCBS FEP PLAN Jan 31, 2015 [id number] ELMIRALY NN PATIENT EXPRESS SCRIPTS PRESCRIPT ION HMO Oct 06, 2018 L4TA [id number] DELUISITOLY NN PATIENT EXPRESS SCRIPTS PRESCRIPT ION CLINI [facility]STINE AND SUPPO RT Sep 19, 2018 L4TA [id number] DEHNTAMEKALY NN PATIENT EXPRESS SCRIPTS ([id number]) PRESCRIPT ION HDHP Oct 06, 2018 L4TA [id number] DEHNEHLY NN PATIENT EXPRESS SCRIPTS ([id number]) PRESCRIPT ION L4TA Oct 06, 2018 L4TA [id number] DEHNEHLY NN PATIENT EXPRESS SCRIPTS ([id number]) PRESCRIPT ION L4TA HDHP Oct 06, 2018 L4TA [id number] DEHNTAMEKALY NN PATIENT EXPRESS SCRIPTS RX PRESCRIPT ION CLINI [facility]STINE AND SUPPO RT Oct 06, 2018 L4TA [id number] DEHNEH,LY NN PATIENT [id number] [facility] CE ORGANIZ CLINI CHRISTINE AND SUPPO RT Oct 06, [id number] DENEREYDATAMEKALY NN PATIENT [id number] [facility] CE ORGANIZ CLINI CHRISTINE AND SUPPO RT Oct 06, [id number] [id number] DEHNEH,LY NN PATIENT G210 BCBS ([facility]) [facility] CE ORGANIZ CLINI CHRISTINE AND SUPPO RT Oct 06, [id number] DEHNEH,LY NN PATIENT G210 BCBS (PROFESSIO NAL) [facility] CE ORGANIZ CLINI CHRISTINE AND SUPPO RT Oct 06, [id number] [id number] DEHNEH,LY NN PATIENT MEDICARE (WNR) MEDICARE () PART A Nov 19, 2006 PART A [id number] DEHNEH,LY NN PATIENT MEDICARE (WNR) MEDICARE () PART A Nov 19, 2006 PART A [id number] DEHNEH,LY NN PATIENT MEDICARE (WNR) MEDICARE () PART A Nov 19, 2006 PART A [id number] DEHNEH,LY NN PATIENT MEDICARE (WNR) MEDICARE ) PART B Nov 19, 2006 PART B [id number] DEHNEH,LY NN PATIENT MEDICARE (WNR) MEDICARE () PART A Nov 19, 2006 PART A [id number] DEHNEH,LY NN PATIENT MEDICARE (WNR) MEDICARE () PART A Nov 19, 2006 PART A [id number] DEHNEH,LY NN PATIENT MEDICARE (WNR) MEDICARE () PART A Nov 19, 2006 PART A [id number] [phone] DEHNEH,LY NN PATIENT MEDICARE (WNR) MEDICARE () PART A Nov 19, 2006 PART A [id number] DEHNEH,LY NN PATIENT MEDICARE (WNR) MEDICARE () PART B Nov 19, 2006 PART B [id number] DEHNEH,LY NN PATIENT Selected Encounter This section includes the information on record at [facility] for the Encounter. Date/Time Encounter Type Encounter Description Reason Pro vider Source Sep 11, 2023 01:54 PM Outpatient Encounter PODIATRY IHE Encounter Template Text not used by VA Plan of Treatment: Future Appointments (+ 6 months) and Future Tests (+/- 45 days) The Plan of Treatment section includes future care activities for the patient from [facility] [place] [facility] This section includes future appointments [...] - MEDICINE [facility] [place] [facility] Oct 29, 2023 04:00 PM AMBULATORY - PSYCHIATRY SP [facility] Nov 07, 2023 02:15 PM AMBULATORY - MEDICINE [facility] Nov 08, 2023 11:00 AM AMBULATORY - MEDICINE [facility] [place] [facility] Nov 09, 2023 01:30 PM AMBULATORY - MEDICINE [facility] Nov 15, 2023 11:00 AM AMBULATORY - REHAB [facility] Nov 16, 2023 10:30 AM AMBULATORY - NONE [facility] [place] [facility] Nov 16, 2023 11:00 AM AMBULATORY - NONE [facility] [place] [facility] Dec 04, 2023 12:00 PM AMBULATORY - MEDICINE [facility] [place] [facility] Dec 27, 2023 09:30 AM AMBULATORY - MEDICINE [facility] [place] [facility] Feb 05, 2024 09:30 AM AMBULATORY - MEDICINE [facility] [place] [facility] Feb 22, 2024 01:00 PM AMBULATORY - MEDICINE [facility] Feb 25, 2024 01:00 PM AMBULATORY - MEDICINE [facility] [place] [facility] Feb 25, 2024 03:00 PM AMBULATORY - PSYCHIATRY [facility] Mar 10, 2024 09:15 AM AMBULATORY - MEDICINE [facility] [place] [facility] Mar 13, 2024 03:00 PM AMBULATORY - MEDICINE [facility] [place] [facility] Social History: Smoking Status (Most [...] 11, 2022 02:50 PM [facility] [place] [facility] Tobacco Use History This section includes a history of the smoking, or tobacco-related health factors, that were collected on or before the date of the Encounter. The data comes from the [place] facility where the Encounter took place. Date/Time Smoking Status/Tobacco Use Comment F acility Dec 05, 2019 01:53 PM VA-TOBACCO NEVER USED [facility] [place] [facility] May 26, 2016 02:32 PM LIFETIME NON-TOBACCO USER [facility] [place] [facility] Encounter Notes: All associated encounter notes This section contains the clinical notes associated to the Encounter. Date/Time Encounter Note(s) Provider Source Sep 11, 2023 01:54 PM TELEPHONE ENCOUNTE R NOTE: LOCAL TITLE: TELEPHONE NOTE/SPECIALTY CLINIC STANDARD TITLE: TELEPHONE ENCOUNTER NOTE DATE OF NOTE: SEP 11, 2023@13:54 ENTRY DATE: SEP 11, 2023@13:54:58 AUTHOR: MERCEDEZ VALENTINE SA COSIGNER: URGENCY: STATUS: COMPLETED TELEPHONE NOTE/SPECIALTY CLINIC Has ADDENDA [place] called and requested a podiatry appointment with the provider. She states hse was last seen 02/08/2023 and the provider had her attend physical therapy and she has completed her appointments with them. Please advise. /sindi VALENTINE Signed: 09/11/2023 13:57 Receipt Acknowledged By: 09/12/2023 12:41 /farhan/ MARIA C DOUGLAS DPM PODIATRY ATTENDING 09/11/2023 14:42 /farhan/ DUARTE [facility] Podiatry Health Continuous Crusher Operator 09/11/2023 15:39 /farhan/ TONIA MILLAN LPN LICENSED PRACTICAL NURSE 09/11/2023 ADDENDUM STATUS: COMPLETED scheduled for 09/12/23 available appt. /farhan/ DUARTE HSU Podiatry Health Continuous Crusher Operator Signed: 09/11/2023 14:42 MERCEDEZ VALENTINE [facility]
--- OUTSIDE RECORDS SUMMARY | 2024-03-10 09:17 | XMS_ITS | Encounter Summary ---
Author Name Department [place] Address [address] [place] [address] Care Team Providers Care Header Boss Name Role Phone GARRETT GOOD Primary Care [...] Boykin's Name Patient's Relationship to Policy Boykin [facility] H[facility] Oct 06, 2018 HMO [id number] [phone] MEREDITH KU NN PATIENT ANTHEM BCBS CT FEDERAL PREFERRED PROVIDER ORGANIZAT ION (PPO) BASIC FAMIL Y Jan 31, 2015 [id number] MEREDITH KU NN PATIENT ANTHEM BCBS OF CT (BLUECARD) HIGH DEDUCTIBL E HEALTH PLAN CLINI CHRISTINE & SUP HDHP Oct 06, 2018 [id number] [phone] MEREDITH KU NN PATIENT BCBS [place] HIGH DEDUCTIBL E HEALTH PLAN CLINI [facility]INE AND BLAKE HDHP Oct 06, 2018 [id number] [phone] MEREDITH KU NN PATIENT BCBS OF [place] HIGH DEDUCTIBL E HEALTH PLAN CLINI CHRISTINE SUPP HDHP Oct 06, [id number] DELUISITOLY NN PATIENT BCBS OF [facility]/[employer] [facility] CE ORGANIZ CLINI CHRISTINE AND SUPPO RT Oct 06, [id number] [phone] DEMEREDITH JORGE NN PATIENT BCBS OF [facility] PREFERRED PROVIDER ORGANIZAT ION (PPO) BASIC FAMIL Y Jan 31, 2015 [id number] [phone] DEHNTAMEKALY NN PATIENT [place] FEPRX PLAN PRESCRIPT ION BCBS FEP Jan 31, 2015 [id number] ELMIRALY NN PATIENT [place]ARK-F EP BCBS PRESCRIPT ION BCBS FEP PLAN Jan 31, 2015 [id number] ELMIRALY NN PATIENT EXPRESS SCRIPTS PRESCRIPT ION HMO Oct 06, 2018 L4TA [id number] DELUISITOLY NN PATIENT EXPRESS SCRIPTS PRESCRIPT ION CLINI CHRISTINE AND SUPPO RT Sep 19, 2018 L4TA [id number] DELUISITOLY NN PATIENT EXPRESS SCRIPTS ([id number]) PRESCRIPT ION HDHP Oct 06, 2018 L4TA [id number] DEHNEHLY NN PATIENT EXPRESS SCRIPTS ([id number]) PRESCRIPT ION L4TA Oct 06, 2018 L4TA [id number] DEHNEHLY NN PATIENT EXPRESS SCRIPTS ([id number]) PRESCRIPT ION L4TA HDHP Oct 06, 2018 L4TA [id number] DELUISITOLY NN PATIENT EXPRESS SCRIPTS RX PRESCRIPT ION CLINI CHRISTINE AND SUPPO RT Oct 06, 2018 L4TA [id number] DEHNEH,LY NN PATIENT [id number] [facility] CE ORGANIZ CLINI CHRISTINE AND SUPPO RT Oct 06, [id number] DEHNTAMEKALY NN PATIENT [id number] [facility] CE ORGANIZ CLINI CHRISTINE AND SUPPO RT Oct 06, [id number] DEHNEH,LY NN PATIENT G210 BCBS ([facility] CL[facility]I CHRISTINE AND SUPPO RT Oct 06, 2018 [id number] DEHNEH,LY NN PATIENT G210 BCBS (PROFESSIO NAL) [facility] CE ORGANIZ CLINI CHRISTINE AND SUPPO RT Oct 06, [id number] DEHNEH,LY NN PATIENT MEDICARE (WNR) MEDICARE () PART A Nov 19, 2006 PART A [id number] DEHNEH,LY NN PATIENT MEDICARE (WNR) MEDICARE () PART A Nov 19, 2006 PART A [id number] DEHNEH,LY NN PATIENT MEDICARE (WNR) MEDICARE () PART A Nov 19, 2006 PART A [id number] DEHNEH,LY NN PATIENT MEDICARE (WNR) MEDICARE ) PART A Nov 19, 2006 PART A [id number] DEHNEH,LY NN PATIENT MEDICARE (WNR) MEDICARE () PART B Nov 19, 2006 PART B [id number] DEHNEH,LY NN PATIENT MEDICARE (WNR) MEDICARE () PART A Nov 19, 2006 PART A [id number] [phone] DEHNEH,LY NN PATIENT MEDICARE (WNR) MEDICARE ) PART A Nov 19, 2006 PART A [id number] DEHNEH,LY NN PATIENT MEDICARE (WNR) MEDICARE () PART A Nov 19, 2006 PART A [id number] DEHNEH,LY NN PATIENT MEDICARE (WNR) MEDICARE () PART B Nov 19, 2006 PART B [id number] DEHNEH,LY NN PATIENT Selected Encounter This section includes the information on record at OR for the Encounter. Date/Time Encounter Type Encounter Description Reason Provider Source Sep 19, 2023 08:29 AM Outpatient Encounter PRIMARY CARE/MEDICINE DYLAN LING Encounter Template Text not used by VA Plan of Treatment: Future Appointments (+ 6 months) and Future Tests (+/- 45 days) The Plan of Treatment section includes future care activities for the patient from all [place] [facility]. This section includes future appointments and future orders which are active, pending or scheduled. Future Appointments This section includes appointments that were scheduled to occur 6 months from the date of the Encounter, up to a maximum of 20 appointments. The data comes from all [place] [facility]. Appointment Date/Time Appointment Type Appointme nt Facility Name Oct 29, 2023 04:00 PM AMBULATORY - PSYCHIATRY [facility] Nov 07, 2023 02:15 PM AMBULATORY - MEDICINE [facility] Nov 08, 2023 11:00 AM AMBULATORY - MEDICINE [facility] [place] [facility] Nov 09, 2023 01:30 PM AMBULATORY - MEDICINE [facility] Nov 15, 2023 11:00 AM AMBULATORY - REHAB MEDICIN [facility] Nov 16, 2023 10:30 AM AMBULATORY - NONE [place] [facility] [place] [facility] Nov 16, 2023 11:00 AM AMBULATORY - NONE [facility] [place] [facility] Dec 04, 2023 12:00 PM AMBULATORY - MEDICINE [place] [facility] [place] [facility] Dec 27, 2023 09:30 AM AMBULATORY - MEDICINE [place] [facility] [facility] Feb 05, 2024 09:30 AM AMBULATORY - MEDICINE [place] [facility] [facility] Feb 22, 2024 01:00 PM AMBULATORY - MEDICINE [facility] Feb 25, 2024 01:00 PM AMBULATORY - MEDICINE [place] [facility] [facility] Feb 25, 2024 03:00 PM AMBULATORY - PSYCHIATRY [facility] Mar 10, 2024 09:15 AM AMBULATORY - MEDICINE [place] [facility] [facility] Mar 13, 2024 03:00 PM AMBULATORY - MEDICINE [place] [facility] [place] [facility] Social History: Smoking Status (Most current) and [...] 11, 2022 02:50 PM VA-TOBACCO NEVER USED [facility] Tobacco Use History This section includes a history of the smoking, or tobacco-related health factors, that were collected on or before the date of the Encounter. The data comes from the [place] facility where the Encounter took place. Date/Time Smoking Status/Tobacco Use Comment Barb acility Dec 05, 2019 01:53 PM VA-TOBACCO NEVER USED [facility] May 26, 2016 02:32 PM LIFETIME NON-TOBACCO USER [facility] Encounter Notes: All associated encounter notes This section contains the clinical notes associated to the Encounter. Date/Time Encounter Note(s) Provider Source Sep 19, 2023 11:29 AM PRIMARY CARE SECUR E MESSAGING: LOCAL TITLE: PRIMARY CARE SECURE MESSAGING STANDARD TITLE: PRIMARY CARE SECURE MESSAGING DATE OF NOTE: SEP 19, 2023@11:29 ENTRY DATE: SEP 19, 2023@12:29:50 AUTHOR: DLYAN LING EXP COSIGNER: URGENCY: STATUS: COMPLETED ------Original Message ----- Sent: 09/19/2023 11:27 AM ET From: LILLIAN KU To: Yessy RO,_PRIMARYCARE_[facility] Subject: General:surgery update and most current appt. Shari Hernandez, Thanks so much for this information! The surgery office called reporting that they left a [facility] for community care but have not heard back from them. I told them surgery is approved and asked what else they need. They said they need the last 3 PCP notes, and last 3 labs completed. If there is an EKG report even better. The information goes to Shanae Melton at Dr. Daniel Fallon, General Surgeon [address] [place] [phone] FAX [phone]. FAx is appreciated. I am also leaving home now to hopefully sign a release at [facility] or [place]. Wish me luck! I leave on vacation this SundaySep.20. I return the afternoon of Sep.25. Surgery is SundaySep.27 Thank you Lillian Ku ------Original Message ----- Sent: 09/19/2023 12:29 PM ET From: DYLAN LING To: LILLIAN KU Subject: General:surgery update and most current appt. Good afternoon, I printed out your last 3 office visit notes from primary care, last year of lab results, and your most recent ekg result from July 2021 and requested that our administrative member of our team fax it to [facility] Surgery office as you requested. Enjoy your trip and good luck with your upcoming surgery. Best regards, DANY Hernandez /farhan/ JOSE CARLOS KELLEY RN-BC REGISTERED NURSE Signed: 09/19/2023 12:29 DYLAN LING [facility] [place] [facility] Sep 19, 2023 08:29 AM PRIMARY CARE SECUR E MESSAGING: LOCAL TITLE: PRIMARY CARE SECURE MESSAGING STANDARD TITLE: PRIMARY CARE SECURE MESSAGING DATE OF NOTE: SEP 19, 2023@08:29 ENTRY DATE: SEP 19, 2023@09:29:49 AUTHOR: DYLAN LING EXP COSIGNER: URGENCY: STATUS: COMPLETED ------Original Message ----- Sent: 09/18/2023 03:47 PM ET From: LILLIAN KU To: Yessy RO,_PRIMARYCARE_[facility] Subject: General:surgery update and most current appt. Shari, I am writing to inform you that I saw Dr. Fallon (surgeon) at [facility] on September 16, at 2:45 pm. He reviewed my symptoms and suggested surgery be completed in the operating room. Surgery will be scheduled for Sep.27, arriving at 8 am for a complete hemorrhoidectomy. Please forward this information to the Community Care office immediately for approval. Also, please write back with the Community Care direct phone number so I can confirm these visits are covered and surgery is approved. I do not have their phone number or extension. I am scheduled to return to his clinic for a post-surgery exam on , at 2 pm. Thank you very much, I look forward to hearing from you. ------Original Message ----- Sent: 09/19/2023 09:29 AM ET From: DYLAN LING To: LILLIAN KU Subject: General:surgery update and most current appt. Good morning, [facility] care can be reached at [phone] for the department. I have forwarded the information you provided to community care staff via your consult and adding comment to consult for the staff to review. The following is the info regarding your [facility] general surgery consult authorization: Referral Number: [id number] Priority: Routine Referral Issue Date: 2023-08-24 Expiration Date: 2024-03-15 First Appointment Date: 2023-09-17 Dylan Madrigal RN /farhan/ NIKI KELLEYN RN-BC REGISTERED NURSE Signed: 09/19/2023 09:29 DYLAN LING [facility]
--- OUTSIDE RECORDS SUMMARY | 2024-03-10 09:17 | XMS_ITS | Encounter Summary ---
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 Operator Name Role Phone GARRETT GOOD Primary [...] Boykin's Name Patient's Relationship to Policy [facility]IZ H[facility] Oct 06, 2018 O [id number] [phone] MEREDITH KU NN PATIENT ANTHEM BCBS CT FEDERAL PREFERRED PROVIDER ORGANIZAT ION (PPO) BASIC FAMIL Y Jan 31, 2015 [id number] MEREDITH KU NN PATIENT ANTHEM BCBS OF CT (BLUECARD) HIGH DEDUCTIBL E HEALTH PLAN CLINI [facility] & SUP HDHP Oct 06, 2018 [id number] [phone] MEREDITH KU NN PATIENT BCBS [place] HIGH DEDUCTIBL E HEALTH PLAN CLINI [facility] AND [place]LA[place] HDHP Oct 06, 2018 [id number] MEREDITH KU NN PATIENT BCBS OF [place] HIGH DEDUCTIBL E HEALTH PLAN CLINI CHRISTINE SUPP HDHP Oct 06, 2018 [id number] DEMEREDITH JORGE NN PATIENT BCBS OF [place]/[facility] CE ORGANIZ CLINI CHRISTINE AND SUPPO RT Oct 06, 2018 [id number] MEREDITH KU NN PATIENT BCBS OF [facility] PREFERRED PROVIDER ORGANIZAT ION (PPO) BASIC FAMIL Y Jan 31, 2015 [id number] ELMIRALY NN PATIENT [place] FEPRX PLAN PRESCRIPT ION BCBS FEP Jan 31, 2015 [id number] MEREDITH KU NN PATIENT CAR[place]ARK-F EP BCBS PRESCRIPT ION BCBS FEP PLAN Jan 31, 2015 [id number] ELMIRALY NN PATIENT EXPRESS SCRIPTS PRESCRIPT ION HMO Oct 06, 2018 L4TA [id number] DELUISITOLY NN PATIENT EXPRESS SCRIPTS PRESCRIPT ION [facility]PPO RT Sep 19, 2018 L4TA [id number] DELUISITOLY NN PATIENT EXPRESS SCRIPTS ([id number]) PRESCRIPT ION [facility] Oct 06, 2018 L4TA [id number] DEHNEHLY NN PATIENT EXPRESS SCRIPTS ([id number]) PRESCRIPT ION L4TA Oct 06, 2018 L4TA [id number] DEHNEHLY NN PATIENT EXPRESS SCRIPTS ([id number]) PRESCRIPT ION L4TA HDHP Oct 06, 2018 L4TA [id number] DELUISITOLY NN PATIENT EXPRESS SCRIPTS RX PRESCRIPT ION CLINI [facility] SUPPO RT Oct 06, 2018 L4TA [id number] DEHNEH,LY NN PATIENT [id number] [facility] CE ORGANIZ CLINI CHRISTINE AND SUPPO RT Oct 06, 2018 [id number] DEHNTAMEKALY NN PATIENT [id number] [facility] CE ORGANIZ CLINI CHRISTINE AND SUPPO RT Oct 06, [id number] DEHNEH,LY NN PATIENT G210 BCBS ([facility]) [facility] CE ORGANIZ CLINI CHRISTINE AND SUPPO RT Oct 06, [id number] DEHNEH,LY NN PATIENT G210 BCBSM ([facility]) [facility] CE ORGANIZ CLINI CHRISTINE AND SUPPO RT Oct 06, [id number] DEHNEH,LY NN PATIENT MEDICARE (WNR) MEDICARE () PART A Nov 19, 2006 PART A [id number] DEHNEH,LY NN PATIENT MEDICARE (WNR) MEDICARE () PART A Nov 19, 2006 PART A [id number] DEHNEH,LY NN PATIENT MEDICARE (WNR) MEDICARE () PART A Nov 19, 2006 PART A [id number] DEHNEH,LY NN PATIENT MEDICARE (WN) MEDICARE ) PART A Nov 19, 2006 PART A [id number] DEHNEH,LY NN PATIENT MEDICARE (WNR) MEDICARE () PART B Nov 19, 2006 PART B [id number] DEHNEH,LY NN PATIENT MEDICARE (WNR) MEDICARE () PART A Nov 19, 2006 PART A [id number] DEHNEH,LY NN PATIENT MEDICARE (WNR) MEDICARE ) PART A Nov 19, 2006 PART A [id number] DEHNEH,LY NN PATIENT MEDICARE (WNR) MEDICARE () PART A Nov 19, 2006 PART A [id number] DEHNEH,LY NN PATIENT MEDICARE (WNR) MEDICARE () PART B Nov 19, 2006 PART B [id number] DEHNEH,LY NN PATIENT Selected Encounter This section includes the information on record at [place] for the Encounter. Date/Time Encounter Type Encounter Description Reason Pro vider Source Sep 12, 2023 09:16 AM Outpatient Encounter ADMIN PAT ACTIVTIES (MASNONCT) IHE Encounter Template Text not used by [place] Plan of Treatment: Future Appointments (+ 6 months) and Future Tests (+/- 45 days) The Plan of Treatment section includes future care activities for the patient from all [place] [facility] This section includes future appointments and future orders which are active, pending or scheduled. Future Appointments This section includes appointments that were scheduled to occur 6 months from the date of the Encounter, up to a maximum of 20 appointments. The data comes from all [place] treatment facilities. Appointment Date/Time Appointment Type Appointme nt Facility Name Sep 13, 2023 08:00 AM AMBULATORY [facility] MEDICINE [facility] [place] [facility] Oct 29, 2023 04:00 PM AMBULATORY - PSYCHIATRY [facility] Nov 07, 2023 02:15 PM AMBULATORY - MEDICINE [facility] Nov 08, 2023 11:00 AM AMBULATORY - MEDICINE [facility] [place] [facility] Nov 09, 2023 01:30 PM AMBULATORY - MEDICINE [facility] Nov 15, 2023 11:00 AM AM[facility]ULATORY - [facility] [place] Nov 16, 2023 10:30 AM AMBULATORY - NONE [facility] [place] [facility] Nov 16, 2023 11:00 AM AMBULATORY - NONE [facility] [place] [facility] Dec 04, 2023 12:00 PM AMBULATORY - MEDICINE [facility] [place] [facility] Dec 27, 2023 09:30 AM AMBULATORY - MEDICINE [facility] [place] [facility] Feb 05, 2024 09:30 AM AMBULATORY - MEDICINE [facility] [place] [facility] Feb 22, 2024 01:00 PM AM[facility]UL[facility]ORY [facility] Feb 25, 2024 01:00 PM AMBULATORY - MEDICINE [place] [facility] [place] [facility] Feb 25, 2024 03:00 PM AMBULATORY - PSYCHIATRY [facility] Mar 10, 2024 09:15 AM AMBULATORY - MEDICINE [place] [facility] [place] [facility] Mar 13, 2024 03:00 PM AMBULATORY - MEDICINE [place] [facility] [place] [facility] Social History: Smoking Status (Most current) and Tobacco Use (All prior to encounter date) This section includes the most current, and the historical, smoking and tobacco- related health factors from the [place] facility where the Encounter took place. Current Smoking Status This section includes the most current smoking, or tobacco-related health factor, from the [place] facility where the Encounter took place. Date/Time Current Smoking Status Comment Rory nicholas Aug 11, 2022 02:50 PM [facility]CO [facility] Tobacco Use History This section includes a history of the smoking, or tobacco-related health factors, that were collected on or before the date of the Encounter. The data comes from the [place] facility where the Encounter took place. Date/Time Smoking Status/Tobacco Use Comment Barb gonzalez Dec 05, 2019 01:53 PM [facility] May 26, 2016 02:32 PM LIFETIME NON-TOBACCO USER [facility] Encounter Notes: All associated encounter notes This section contains the clinical notes associated to the Encounter. Date/Time Encounter Note(s) Provider Source Sep 12, 2023 10:45 AM ADDENDUM: LOCAL TITLE: Addendum STANDARD TITLE: ADDENDUM DATE OF NOTE: SEP 12, 2023@10:45:24 ENTRY DATE: SEP 12, 2023@10:45:25 AUTHOR: RYLAND DE LEON COSIGNER: URGENCY: STATUS: COMPLETED PLEASE REQUEST ED RECORDS FROM [facility]. THANK YOU /farhan/ RYLAND DE LEON LPN Licensed Practical Nurse Signed: 09/12/2023 10:47 Receipt Acknowledged By: 09/12/2023 12:15 /farhan/ DEL ECHOLS ADVANCED BENEFITS CONSULTING ANALYST --- Original Document --- 09/12/23 CCC: SCHEDULING ADMINISTRATION: Patient Demographics Patient Name: INDY KU Patient Primary Phone: [phone] Patient Primary Address: [address] [place] [id number] Patient : 1965 Patient Age: 58 Caller/Recipient Relation to Patient: Self Administrative Administrative Note Reason: Other Administrative Note Comments: Call Center/Hospital Follow Up Notification Reason for call: F/U and consult needed, [facility] had emergency Rectal Surgery for External Hemorrhoid's and will have a F/U with surgeon on Sunday09/17/23 for post surgical review. [address] [place] [address] Hospital/Urgent Care Name: [facility] Date of visit/admission: 09/11/23 Date of Discharge: 09/12/23 Follow Up Timeframe: [ ]Patient/facility participates in HIN [ ]Informed caller to have all medical records pertaining to hospitalization and ER visit faxed to the patients provider. Please contact to follow up at # [phone] Thank you [ x] Alerting PACT RN for review and follow up on scheduling request for discharge follow up appointment /farhan/ PATRICIA TAVAREZ VISN1 [facility] Signed: 09/12/2023 09:16 Receipt Acknowledged By: * AWAITING SIGNATURE * DYLAN LING 09/12/2023 10:44 /farhan/ RYLAND DE LEON LPN Licensed Practical Nurse 09/12/2023 ADDENDUM STATUS: UNSIGNED You may not VIEW this UNSIGNED Addendum. ELADIA DE LEON [place] [facility] [place] [facility] Sep 12, 2023 09:16 AM ADMINISTRATIVE NOTE: LOCAL TITLE: CCC: SCHEDULING ADMINISTRATION STANDARD TITLE: ADMINISTRATIVE NOTE DATE OF NOTE: SEP 12, 2023@09:16:10 ENTRY DATE: SEP 12, 2023@09:16:10 AUTHOR: PATRICIA TAVAREZ EXP COSIGNER: URGENCY: STATUS: COMPLETED CCC: SCHEDULING ADMINISTRATION Has ADDENDA Patient Demographics Patient Name: INDY KU Patient Primary Phone: [phone] Patient Primary Address: [address] [place] [id number] Patient : 1965 Patient Age: 58 Caller/Recipient Relation to Patient: Self Administrative Administrative Note Reason: Other Administrative Note Comments: Call Center/Hospital Follow Up Notification Reason for call: F/U and consult needed, [facility] had emergency Rectal Surgery for External Hemorrhoid's and will have a F/U with surgeon on Sunday09/17/23 for post surgical review. [address] [place] [address] Hospital/Urgent Care Name: [facility] Date of visit/admission: 09/11/23 Date of Discharge: 09/12/23 Follow Up Timeframe: [ ]Patient/facility participates in HIN [ ]Informed caller to have all medical records pertaining to hospitalization and ER visit faxed to the patients provider. Please contact to follow up at # [phone] Thank you [ x] Alerting PACT RN for review and follow up on scheduling request for discharge follow up appointment /farhan/ PATRICIA TAVAREZ VISN1 [facility] Signed: 09/12/2023 09:16 Receipt Acknowledged By: 09/17/2023 10:22 /es/ JOSE CARLOS KELLEY RN- REGISTERED NURSE 09/12/2023 10:44 /farhan/ RYLAND DE LEON LPN Licensed Practical Nurse 09/12/2023 ADDENDUM STATUS: COMPLETED PLEASE REQUEST ED RECORDS FROM [facility]. 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 /farhan/ DEL ECHOLS ADVANCED BENEFITS CONSULTING ANALYST Signed: 09/12/2023 12:15 PATRICIA TAVAREZ [place] [facility]
--- OUTSIDE RECORDS SUMMARY | 2024-03-10 09:17 | XMS_ITS | Encounter Summary ---
Author Name [place] Address [address] [place] [address] Care Team Providers Care Security Supervisor Name Role Phone GARRETT GOOD Primary Care [...] CE ORGANIZ HMO Oct 06, 2018 HMO [id number] [phone] MEREDITH KU NN PATIENT ANTHEM BCBS CT FEDERAL PREFERRED PROVIDER ORGANIZAT ION (PPO) BASIC FAMIL Y Jan 31, 2015 [id number] MEREDITH KU NN PATIENT ANTHEM BCBS OF CT (BLUECARD) HIGH DEDUCTIBL E HEALTH PLAN CLINI [facility]STINE & SUP HDHP Oct 06, 2018 [id number] [phone] MEREDITH KU NN PATIENT BCBS [place] HIGH DEDUCTIBL E HEALTH PLAN CLINI [facility] AND [place]LA[place] HDHP Oct 06, 2018 [id number] EMREDITH KU NN PATIENT BCBS OF [place] HIGH DEDUCTIBL E HEALTH PLAN CLINI CHRISTINE SUPP HDHP Oct 06, [id number] [phone] DELUISITOLY NN PATIENT BCBS OF [facility] CE ORGANIZ CLINI CHRISTINE AND SUPPO RT Oct 06, [id number] DEMEREDITH JORGE NN PATIENT BCBS OF [facility] PREFERRED PROVIDER ORGANIZAT ION (PPO) BASIC FAMIL Y Jan 31, 2015 [id number] DEHNTAMEKALY NN PATIENT [place] FEPRX PLAN PRESCRIPT ION BCBS FEP Jan 31, 2015 [id number] MEREDITH KU NN PATIENT [place]-F EP BCBS PRESCRIPT ION BCBS FEP PLAN Jan 31, 2015 [id number] ELMIRALY NN PATIENT EXPRESS SCRIPTS PRESCRIPT ION HMO Oct 06, 2018 L4TA [id number] DELUISITOLY NN PATIENT EXPRESS SCRIPTS PRESCRIPT ION CLINI [facility] AND SUPPO RT Sep 19, 2018 L4TA [id number] DEHNTAMEKALY NN PATIENT EXPRESS SCRIPTS ([id number]) PRESCRIPT ION HDHP Oct 06, 2018 L4TA [id number] DEHNEHLY NN PATIENT EXPRESS SCRIPTS ([id number]) PRESCRIPT ION L4TA Oct 06, 2018 L4TA [id number] DEHNEHLY NN PATIENT EXPRESS SCRIPTS ([id number]) PRESCRIPT ION L4TA HDHP Oct 06, 2018 L4TA [id number] DEHNTAMEKALY NN PATIENT EXPRESS SCRIPTS RX PRESCRIPT ION CLINI [facility] AND SUPPO RT Oct 06, 2018 L4TA [id number] DEHNEH,LY NN PATIENT [id number] [facility] CE ORGANIZ CLINI CHRISTINE AND SUPPO RT Oct 06, [id number] DENEREYDATAMEKALY NN PATIENT [id number] [facility] CE ORGANIZ CLINI CHRISTINE AND SUPPO RT Oct 06, [id number] DEHNEH,LY NN PATIENT G210 BCBS ([facility]) [facility] CE ORGANIZ CLINI CHRISTINE AND SUPPO RT Oct 06, [id number] DEHNEH,LY NN PATIENT G210 BCBS ([facility] ORGANIZ CLINI CHRISTINE AND SUPPO RT Oct 06, [id number] DEHNEH,LY NN PATIENT MEDICARE (WN) MEDICARE ) PART A Nov 19, 2006 PART A [id number] DEHNEH,LY NN PATIENT MEDICARE (WN) MEDICARE ) PART A Nov 19, 2006 PART A [id number] DEHNEH,LY NN PATIENT MEDICARE ([facility]) MEDICARE ) PART A Nov 19, 2006 PART A [id number] DEHNEH,LY NN PATIENT MEDICARE ([place]) MEDICARE ) PART B Nov 19, 2006 PART B [id number] DEHNEH,LY NN PATIENT MEDICARE (WN) MEDICARE ) PART A Nov 19, 2006 PART A [id number] DEHNEH,LY NN PATIENT MEDICARE ([place]) MEDICARE ) PART A Nov 19, 2006 PART A [id number] DEHNEH,LY NN PATIENT MEDICARE ([place]) MEDICARE ) PART A Nov 19, 2006 PART A [id number] DEHNEH,LY NN PATIENT MEDICARE (WN) MEDICARE ) PART A Nov 19, 2006 PART A [id number] [phone] DEHNEH,LY NN PATIENT MEDICARE (WN) MEDICARE ) PART B Nov 19, 2006 PART B [id number] DEHNEH,LY NN PATIENT Selected Encounter This section includes the information on record at [place] for the Encounter. Date/Time Encounter Type Encounter Description Reason Provider Source Sep 04, 2023 01:30 PM OFF/OP EST JUNE X REQ PHY/QHP [facility] IND ICD-10-CM Z71.89 Other specified counseling PAUL SANTOS Nav Encounter Template Text not used by [place] Assessments - Encounter Diagnoses This section includes the primary and secondary diagnoses documented for the Encounter. Date/Time Primary/Secondary Diagnosis Diagnosis Name Provider Source Sep 10, 2023 04:14 PM PRIMARY Other specified counseling PAUL SANTOS Plan of Treatment: Future Appointments (+ 6 months) and Future Tests (+/- 45 days) The Plan of Treatment section includes future care activities for the patient from all [place] [facility]. This section includes future appointments and [...] 11, 2023 03:00 PM AMBULATORY - MEDICINE [facility] Sep 13, 2023 08:00 AM AMBULATORY - MEDICINE [place] [facility] [place] [facility] Oct 29, 2023 04:00 PM AMBULATORY - PSYCHIATRY [facility] Nov 07, 2023 02:15 PM AMBULATORY - MEDICINE [facility] Nov 08, 2023 11:00 AM AMBULATORY - MEDICINE [place] [facility] [place] [facility] Nov 09, 2023 01:30 PM AMBULATORY - MEDICINE [facility] Nov 15, 2023 11:00 AM AMBULATORY - REHAB [facility] Nov 16, 2023 10:30 AM AMBULATORY - NONE [place] [facility] [place] [facility] Nov 16, 2023 11:00 AM AMBULATORY - NONE [place] [facility] [place] [facility] Dec 04, 2023 12:00 PM AMBULATORY - MEDICINE [place] [facility] [place] [facility] Dec 27, 2023 09:30 AM AMBULATORY - MEDICINE [place] [facility] [place] [facility] Feb 05, 2024 09:30 AM AMBULATORY - MEDICINE [place] [facility] [place] [facility] Feb 22, 2024 01:00 PM AMBULATORY - MEDICINE [facility] Feb 25, 2024 01:00 PM AMBULATORY - MEDICINE [place] [facility] [place] [facility] Feb 25, 2024 03:00 PM AMBULATORY - PSYCHIATRY [facility] Social History: Smoking Status (Most [...] Date/Time Current Smoking Status Comment Rory ity Nov 22, 2020 11:00 AM VA-TOBACCO NEVER USED [place] Tobacco Use History This section includes a history of the smoking, or tobacco-related health factors, that were collected on or before the date of the Encounter. The data comes from the [place] facility where the Encounter took place. Date/Time Smoking Status/Tobacco Use Comment F acility Jan 31, 2018 09:33 AM VA-TOBACCO NEVER USED [place] May 10, 2017 01:08 PM LIFETIME NON-TOBACCO USER [facility] Mar 02, 2015 09:05 AM LIFETIME NON-TOBACCO USER [place] July 10, 2001 02:49 PM LIFETIME NON-TOBACCO USER [facility] Encounter Notes: All associated encounter notes This section contains the clinical notes associated to the Encounter. Date/Time Encounter Note(s) Provider Source Sep 04, 2023 01:30 PM SOCIAL WORK NOTE: LOCAL TITLE: SOCIAL WORK NOTE STANDARD TITLE: SOCIAL WORK NOTE DATE OF NOTE: SEP 04, 2023@13:30 ENTRY DATE: SEP 10, 2023@16:10:15 AUTHOR: PAUL SANTOS EXP COSIGNER: URGENCY: STATUS: COMPLETED [place] is seen at her request. She is wanting to apply for [place], sometimes I don't want to go to the [place] . The application was quite lengthy, the questions were very similar to the application for SSD. We were able to complete the application, she needed to rest and refocus a few times. She easily provided information, at times tended to ramble. Very polite, upbeat, appreciative of this worker's time. Appt was lengthy. No future appts w this worker needed at this time. /farhan/ JUNE Cannon PLASTICS PATTERNMAKER Signed: 09/10/2023 16:14 PAUL SANTOS
--- OUTSIDE RECORDS SUMMARY | 2024-03-10 09:18 | XMS_ITS | Encounter Summary ---
Author Name [facility] [place] Address [address] [place] [address] Care Team Providers Care Field Examiner Name Role Phone GARRETT GOOD Primary Care [...] Boykin's Name Patient's Relationship to Policy Boykin SNOBSWAPFORMERLY [facility] CE ORGANIZ HMO Oct 06, 2018 HMO [id number] [phone] MEREDITH KU NN PATIENT ANTHEM BCBS CT FEDERAL PREFERRED PROVIDER ORGANIZAT ION (PPO) BASIC FAMIL Y Jan 31, 2015 112 [id number] MEREDITH KU NN PATIENT ANTHEM BCBS OF CT (BLUECARD) HIGH DEDUCTIBL E HEALTH PLAN CL[facility]I [facility] & SUP HDHP Oct 06, 2018 [id number] MEREDITH KU NN PATIENT BCBS [place] HIGH DEDUCTIBL E HEALTH PLAN CLINI [facility] AND [place]LAKE HDHP Oct 06, 2018 [id number] MEREDITH KU NN PATIENT BCBS OF [place] HIGH DEDUCTIBL E HEALTH PLAN CLINI CHRISTINE SUPP HDHP Oct 06, [id number] DELUISITOLY NN PATIENT [place]BS OF [place] CE ORGANIZ CLINI CHRISTINE AND SUPPO RT Oct 06, [id number] [phone] DEMEREDITH JORGE NN PATIENT BCBS OF [facility] PREFERRED PROVIDER ORGANIZAT ION (PPO) BASIC FAMIL Y Jan 31, 2015 112 [id number] [phone] DEHNTAMEKALY NN PATIENT [place] FEPRX PLAN PRESCRIPT ION BCBS FEP Jan 31, 2015 [id number] ELMIRALY NN PATIENT [place]-F EP BCBS PRESCRIPT ION BCBS FEP PLAN Jan 31, 2015 [id number] ELMIRALY NN PATIENT EXPRESS SCRIPTS PRESCRIPT ION HMO Oct 06, 2018 L4TA [id number] DELUISITOLY NN PATIENT EXPRESS SCRIPTS PRESCRIPT ION CLINI [facility] AND SUPPO RT Sep 19, 2018 L4TA [id number] DELUISITOLY NN PATIENT EXPRESS SCRIPTS ([id number]) PRESCRIPT ION HDHP Oct 06, 2018 L4TA [id number] DEHNEHLY NN PATIENT EXPRESS SCRIPTS ([id number]) PRESCRIPT ION L4TA Oct 06, 2018 L4TA [id number] DEHNEHLY NN PATIENT EXPRESS SCRIPTS ([id number]) PRESCRIPT ION L4TA HDHP Oct 06, 2018 L4TA [id number] DELUISITOLY NN PATIENT EXPRESS SCRIPTS RX PRESCRIPT ION CLINI [facility] AND SUPPO RT Oct 06, 2018 L4TA [id number] DEHNEH,LY NN PATIENT [id number] [facility] CE ORGANIZ CLINI CHRISTINE AND SUPPO RT Oct 06, [id number] DEHNTAMEKALY NN PATIENT [id number] [facility] CE ORGANIZ CLINI CHRISTINE AND SUPPO RT Oct 06, [id number] DEHNEH,LY NN PATIENT G210 BCBSM ([facility]) [facility] CE ORGANIZ CLINI CHRISTINE AND SUPPO RT Oct 06, 2018 [id number] DEHNEH,LY NN PATIENT G210 BCBS ([facility] NAL) [facility] CE ORGANIZ CLINI CHRISTINE AND SUPPO RT Oct 06, [id number] DEHNEH,LY NN PATIENT MEDICARE (WNR) MEDICARE () PART A Nov 19, 2006 PART A [id number] DEHNEH,LY NN PATIENT MEDICARE (WNR) MEDICARE () PART A Nov 19, 2006 PART A [id number] DEHNEH,LY NN PATIENT MEDICARE (WNR) MEDICARE () PART A Nov 19, 2006 PART A [id number] DEHNEH,LY NN PATIENT MEDICARE (WNR) MEDICARE () PART B Nov 19, 2006 PART B [id number] DEHNEH,LY NN PATIENT MEDICARE (WNR) MEDICARE () PART A Nov 19, 2006 PART A [id number] DEHNEH,LY NN PATIENT MEDICARE (WNR) MEDICARE () PART A Nov 19, 2006 PART A [id number] [phone] DEHNEH,LY NN PATIENT MEDICARE (WNR) MEDICARE () PART A Nov 19, 2006 PART A [id number] [phone] DEHNEH,LY NN PATIENT MEDICARE (WNR) MEDICARE () PART A Nov 19, 2006 PART A [id number] DEHNEH,LY NN PATIENT MEDICARE (WNR) MEDICARE () PART B Nov 19, 2006 PART B [id number] DEHNEH,LY NN PATIENT Selected Encounter This section includes the information on record at [place] for the Encounter. Date/Time Encounter Type Encounter Description Reason Pro vider Source Sep 20, 2023 09:29 AM Outpatient Encounter PRIMARY CARE/MEDICINE IHE Encounter Template Text not used by [place] Plan of Treatment: Future Appointments (+ 6 months) and Future Tests (+/- 45 days) The Plan of Treatment section includes future care [facility] [place] [facility] This section includes future appointments and future orders which are active, pending or scheduled. Future Appointments This section includes appointments that were scheduled to occur 6 months from the date of the Encounter, up to a maximum of 20 appointments. The data comes from all [facility]. Appointment Date/Time Appointment Type Appointme nt Facility Name Oct 29, 2023 04:00 PM AMBULATORY - PSYCHIATRY [facility] Nov 07, 2023 02:15 PM AMBULATORY - MEDICINE [facility] Nov 08, 2023 11:00 AM AMBULATORY - MEDICINE [place] [facility] Nov 09, 2023 01:30 PM AMBULATORY - MEDICINE [facility] Nov 15, 2023 11:00 AM AMBULATORY - REHAB MEDICIN [facility] Nov 16, 2023 10:30 AM AMBULATORY - NONE [place] [facility] [place] [facility] Nov 16, 2023 11:00 AM AMBULATORY - NONE [place] [facility] [place] [facility] Dec 04, 2023 12:00 PM AMBULATORY - MEDICINE [place] [facility] [place] [facility] Dec 27, 2023 09:30 AM AMBULATORY - MEDICINE [place] [facility] [place] [facility] Feb 05, 2024 09:30 AM AMBULATORY - MEDICINE [place] [facility] Feb 22, 2024 01:00 PM [facility] Feb 25, 2024 01:00 PM AMBULATORY - MEDICINE [place] [facility] Feb 25, 2024 03:00 PM AMBULATORY - PSYCHIATRY [facility] Mar 10, 2024 09:15 AM AMBULATORY - MEDICINE [place] [facility] [place] [place] [facility] Mar 13, 2024 03:00 PM AMBULATORY - MEDICINE [place] [facility] [place] [place] [facility] Social History: Smoking Status (Most [...] place. Date/Time Current Smoking Status Comment Facil cristopher Aug 11, 2022 02:50 PM VA-TOBACCO NEVER USED [facility] Tobacco Use History This section includes a history of the smoking, or tobacco-related health factors, that were collected on or before the date of the Encounter. The data comes from the [place] facility where the Encounter took place. Date/Time Smoking Status/Tobacco Use Comment Barb gonzalez Dec 05, 2019 01:53 PM [facility] May 26, 2016 02:32 PM LIFETIME NON-TOBACCO USER [facility] Encounter Notes: All associated encounter notes This section contains the clinical notes associated to the Encounter. Date/Time Encounter Note(s) Provider Source Sep 20, 2023 09:32 AM NONVA NOTE: LOCAL TITLE: NON-[place] MEDICAL RECORD SUMMARY STANDARD TITLE: NONVA NOTE DATE OF NOTE: SEP 20, 2023@09:32 ENTRY DATE: SEP 20, 2023@09:32:50 AUTHOR: DYLAN LING COSIGNER: URGENCY: STATUS: COMPLETED NON [place] Medical Report This data contains relevant information copied & pasted from a NON [place] source. Efforts are made to ensure congruency between this note & the original. This note not DOES NOT contain the entirety of the original. Please see [employer] to view the original note/document. ____ CLINIC NOTE Visit Type: Date: Aug Place of Service: [facility] Rheumatology Service/Department: RHEUMATOLOGY Upcoming Appointments: 10/04/2023 13:30 CWM/SO/VVC/MHC/BERMUDEZ 11/08/2023 11:00 NHM/ENDOCRINE 11/14/2023 14:15 CWM/NO/DENTAL/RDH1 PM 12/04/2023 13:30 CWM/SO/PACT EIGHT WH 01/29/2024 10:30 NHM/OPT/VISUAL IMAGING 01/29/2024 11:00 CWM/NO/OPTOMETRY/BRIONNA SENT TO SCANNING /es/ JOSE CARLOS KELLEY RN-BC REGISTERED NURSE Signed: 09/20/2023 09:33 DYLAN LING DUNN LORING Sep 20, 2023 09:29 AM NONVA NOTE: LOCAL TITLE: NON-VA HOSPITALIZATIONS/ER STANDARD TITLE: NONVA NOTE DATE OF NOTE: SEP 20, 2023@09:29 ENTRY DATE: SEP 20, 2023@09:30:02 AUTHOR: DYLAN LING EXP COSIGNER: URGENCY: STATUS: COMPLETED NON VA DISCHARGE SUMMARY This data contains relevant information copied & pasted from a NON VA source. Efforts are made to ensure congruency between this note & the original. This note not DOES NOT contain the entirety of the original. Please see [employer] to view the original note/document. Place of Service: [facility] Admission Date: Aug Discharge Date: Discharged to: Home Chief complaint: Hemorrhoids Upcoming Appointments: 10/04/2023 13:30 CWM/SO/VVC/MHC/BERMUDEZ 11/08/2023 11:00 NHM/ENDOCRINE 11/14/2023 14:15 CWM/NO/DENTAL/RDH1 PM 12/04/2023 13:30 CWM/SO/PACT EIGHT 01/29/2024 10:30 NHM/OPT/VISUAL IMAGING 01/29/2024 11:00 CWM/NO/OPTOMETRY/BRIONNA SENT TO SCANNING This note is entered for the sole purpose of scanning Non-VA documentation into [employer]. /farhan/ JOSE CARLOS KELLEY RN-BC REGISTERED NURSE Signed: 09/20/2023 09:32 DYLAN LING
--- OUTSIDE RECORDS SUMMARY | 2024-03-10 09:19 | XMS_ITS | Encounter Summary ---
Author Name [facility] [place] Address [address] [place] [address] Care Team Providers Care Volleyball Commentator Name Role Phone GARRETT GOOD Primary Care [...] CE ORGANIZ HMO Oct 06, 2018 HMO [id number] MEREDITH KU NN PATIENT ANTHEM BCBS CT FEDERAL PREFERRED PROVIDER ORGANIZAT ION (PPO) BASIC FAMIL Y Jan 31, 2015 112 [id number] MEREDITH KU NN PATIENT ANTHEM BCBS OF CT (BLUECARD) HIGH DEDUCTIBL E HEALTH PLAN CLINI CHRISTINE & SUP HDHP Oct 06, 2018 [id number] MEREDITH KU NN PATIENT BCBS [place] HIGH DEDUCTIBL E HEALTH PLAN CLINI [facility]INE AND [place]LAKE HDHP Oct 06, 2018 [id number] MEREDITH KU NN PATIENT [place] HIGH DEDUCTIBL E HEALTH PLAN CLINI CHRISTINE SUPP HDHP Oct 06, [id number] [phone] DELUISITOLY NN PATIENT BCBS OF [facility] CE ORGANIZ CLINI CHRISTINE AND SUPPO RT Oct 06, [id number] DEMEREDITH JORGE NN PATIENT BCBS OF [facility] PREFERRED PROVIDER ORGANIZAT ION (PPO) BASIC FAMIL Y Jan 31, 2015 [id number] DEHNTAMEKALY NN PATIENT [place] FEPRX PLAN PRESCRIPT ION BCBS FEP Jan 31, 2015 [id number] MEREDITH KU NN PATIENT [place]-F EP BCBS PRESCRIPT ION BCBS FEP PLAN Jan 31, 2015 [id number] ELMIRALY NN PATIENT EXPRESS SCRIPTS PRESCRIPT ION HMO Oct 06, 2018 L4TA [id number] DELUISITOLY NN PATIENT EXPRESS SCRIPTS PRESCRIPT ION CLINI [facility] AND SUPPO RT Sep 19, 2018 L4TA [id number] DEHNTAMEKALY NN PATIENT EXPRESS SCRIPTS ([id number]) PRESCRIPT ION HDHP Oct 06, 2018 L4TA [id number] DEHNEHLY NN PATIENT EXPRESS SCRIPTS ([id number]) PRESCRIPT ION L4TA Oct 06, 2018 L4TA [id number] DEHNEHLY NN PATIENT EXPRESS SCRIPTS ([id number]) PRESCRIPT ION L4TA HDHP Oct 06, 2018 L4TA [id number] DEHNTAMEKALY NN PATIENT EXPRESS SCRIPTS RX PRESCRIPT ION CLINI [facility] AND SUPPO RT Oct 06, 2018 L4TA [id number] DEHNEH,LY NN PATIENT [id number] [facility] CE ORGANIZ CLINI CHRISTINE AND SUPPO RT Oct 06, [id number] DENEREYDATAMEKALY NN PATIENT [id number] [facility] CE ORGANIZ CLINI CHRISTINE AND SUPPO RT Oct 06, [id number] DEHNEH,LY NN PATIENT G210 BCBS ([facility] CHRISTINE AND SUPPO RT Oct 06, [id number] DEHNEH,LY NN PATIENT G210 BCBS ([facility]ESSIO NAL) [facility] CE ORGANIZ CLINI CHRISTINE AND SUPPO RT Oct 06, [id number] DEHNEH,LY NN PATIENT MEDICARE (WNR) MEDICARE () PART A Nov 19, 2006 PART A [id number] DEHNEH,LY NN PATIENT MEDICARE (WNR) MEDICARE () PART A Nov 19, 2006 PART A [id number] DEHNEH,LY NN PATIENT MEDICARE (WNR) MEDICARE () PART B Nov 19, 2006 PART B [id number] DEHNEH,LY NN PATIENT MEDICARE (WNR) MEDICARE ) PART A Nov 19, 2006 PART A [id number] DEHNEH,LY NN PATIENT MEDICARE (WNR) MEDICARE () PART A Nov 19, 2006 PART A [id number] DEHNEH,LY NN PATIENT MEDICARE (WNR) MEDICARE () PART A Nov 19, 2006 PART A [id number] DEHNEH,LY NN PATIENT MEDICARE (WNR) MEDICARE () PART A Nov 19, 2006 PART A [id number] DEHNEH,LY NN PATIENT MEDICARE (WNR) MEDICARE () PART A Nov 19, 2006 PART A [id number] DEHNEH,LY NN PATIENT MEDICARE (WNR) MEDICARE () PART B Nov 19, 2006 PART B [id number] DEHNEH,LY NN PATIENT Selected Encounter This section includes the information on record at [place] for the Encounter. Date/Time Encounter Type Encounter Description Reason Pro vider Source Sep 17, 2023 12:00 PM Outpatient Encounter COMMUNITY CARE CONSULT IHE Encounter Template Text not used by [facility] Plan of Treatment: Future Appointments (+ 6 months) and Future Tests (+/- 45 days) The Plan of Treatment section includes future care activities for the patient [facility] [place] [facility] This section includes future appointments and future orders which are active, pending or scheduled. Future Appointments This section includes appointments that were scheduled to occur 6 months from the date of the Encounter, up to a maximum of 20 appointments. The data comes from [facility] [place] [facility] Appointment Date/Time Appointment Type Appointme nt Facility Name Oct 29, 2023 04:00 PM AMBULATORY - PS[facility]CHIATRY [facility] Nov 07, 2023 02:15 PM AMBULATORY - MEDICINE [facility] Nov 08, 2023 11:00 AM AMBULATORY - [place]IC[place] [facility] Nov 09, 2023 01:30 PM AMBULATORY - MEDICINE [facility] Nov 15, 2023 11:00 AM AM[facility]ULATORY [facility] Nov 16, 2023 10:30 AM AMBULATORY - NONE [place] [facility] [facility] Nov 16, 2023 11:00 AM AMBULATORY - NONE [place] [facility] [place] [facility] Dec 04, 2023 12:00 PM AMBULATORY - MEDICINE [place] [facility] [place] [facility] Dec 27, 2023 09:30 AM AMBULATORY - MEDICINE [place] [facility] [place] [facility] Feb 05, 2024 09:30 AM AMBULATORY - MEDICINE [place] [facility] Feb 22, 2024 01:00 PM AMBULATORY - MEDICINE [facility] Feb 25, 2024 01:00 PM AMBULATORY - MEDICINE [place] [facility] Feb 25, 2024 03:00 PM AMBULATORY - PSYCHIATRY [facility] Mar 10, 2024 09:15 AM AMBULATORY - MEDICINE [place] [facility] [place] [facility] Mar 13, 2024 03:00 PM AMBULATORY - MEDICINE [place] [facility] [place] [facility] Social History: Smoking Status (Most current) and Tobacco Use (All prior to encounter date) This section includes the most current, and the historical, smoking and tobacco- related health factors from the [place] facility where the Encounter took place. Current Smoking Status This section includes the most current smoking, or tobacco-related health factor, from the [place] facility where the Encounter took place. Date/Time Current Smoking Status Comment Facil ity Aug 11, 2022 02:50 PM VA-TOBACCO NEVER USED [facility] Tobacco Use History This section includes a history of the smoking, or tobacco-related health factors, that were collected on or before the date of the Encounter. The data comes from the [place] facility where the Encounter took place. Date/Time Smoking Status/Tobacco Use Comment F acility Dec 05, 2019 01:53 PM VA-TOBACCO NEVER USED [facility] May 26, 2016 02:32 PM LIFETIME NON-TOBACCO USER [facility] Encounter Notes: All associated encounter notes This section contains the clinical notes associated to the Encounter. Date/Time Encounter Note(s) Provider Source Sep 17, 2023 12:00 PM NONVA CONSULT: LOCAL TITLE: COMMUNITY CARE-CONSULT RESULT NOTE STANDARD TITLE: NONVA CONSULT DATE OF NOTE: SEP 17, 2023@12:00 ENTRY DATE: OCT 15, 2023@12:27:57 AUTHOR: JUAN PABLO TRAN EXP COSIGNER: URGENCY: STATUS: COMPLETED [facility] - Scanned Document SCANNED DOCUMENT SIGNATURE NOT REQUIRED Electronically Filed: 10/15/2023 by: JUAN PABLO GRIFFITH [facility]
--- OUTSIDE RECORDS SUMMARY | 2024-03-10 09:19 | XMS_ITS ---
Author Name [facility] [facility] [place] [facility] [place] Address [address] [place] [address] Care Team Providers Care Laboratory Development Technician Name Role Phone GARRETT GOOD Primary [...] Patient's Relationship to Policy [place] [facility] CE ORGANIZ HMO Oct 06, 2018 O [id number] [phone] MEREDITH KU NN PATIENT ANTHEM BCBS CT FEDERAL PREFERRED PROVIDER ORGANIZAT ION (PPO) BASIC FAMIL Y Jan 31, 2015 [id number] [phone] MEREDITH KU NN PATIENT ANTHEM BCBS OF CT (BLUECARD) HIGH DEDUCTIBL E HEALTH PLAN CLINI [facility]P HDHP Oct 06, 2018 [id number] MEREDITH KU NN PATIENT BCBS [place] HIGH DEDUCTIBL E HEALTH PLAN CLINI [facility] [place] HDHP Oct 06, 2018 [id number] MEREDITH KU NN PATIENT BCBS OF [place] HIGH DEDUCTIBL E HEALTH PLAN CLINI [facility] SUPP HDHP Oct 06, [id number] [phone] DELUISITOLY NN PATIENT BCBS OF [facility] CE ORGANIZ CLINI CHRISTINE AND SUPPO RT Oct 06, [id number] DELUISITOLY NN PATIENT BCBS OF [facility] PREFERRED PROVIDER ORGANIZAT ION (PPO) BASIC FAMIL Y Jan 31, 2015 [id number] DEHNTAMEKALY NN PATIENT [place] FEPRX PLAN PRESCRIPT ION BCBS FEP Jan 31, 2015 [id number] MEREDITH KU NN PATIENT [place]-F EP BCBS PRESCRIPT ION BCBS FEP PLAN Jan 31, 2015 [id number] ELMIRALY NN PATIENT EXPRESS SCRIPTS PRESCRIPT ION HMO Oct 06, 2018 L4TA [id number] ELMIRALY NN PATIENT EXPRESS SCRIPTS PRESCRIPT ION CLINI [facility] SUPPO RT Sep 19, 2018 L4TA [id number] DELUISITOLY NN PATIENT EXPRESS SCRIPTS ([id number]) PRESCRIPT ION HDHP Oct 06, 2018 L4TA [id number] DEHNEHLY NN PATIENT EXPRESS SCRIPTS ([id number]) PRESCRIPT ION L4TA Oct 06, 2018 L4TA [id number] DEHNEHLY NN PATIENT EXPRESS SCRIPTS ([id number]) PRESCRIPT ION L4TA HDHP Oct 06, 2018 L4TA [id number] DELUISITOLY NN PATIENT EXPRESS SCRIPTS RX PRESCRIPT ION CLINI [facility] SUPPO RT Oct 06, 2018 L4TA [id number] DEHNEH,LY NN PATIENT [id number] [facility] CE ORGANIZ CLINI [facility] AND SUPPO RT Oct 06, [id number] DEHNTAMEKALY NN PATIENT [id number] [facility] CE ORGANIZ CLINI [facility] AND SUPPO RT Oct 06, [id number] [id number] DEHNEH,LY NN PATIENT G210 BCBSM [facility] SUPPO RT Oct 06, [id number] DEHNEH,LY NN PATIENT G210 BCBS ([facility] AND SUPPO RT Oct 06, [id number] DEHNEH,LY NN PATIENT MEDICARE (WNR) MEDICARE () PART A Nov 19, 2006 PART A [id number] DEHNEH,LY NN PATIENT MEDICARE (WNR) MEDICARE () PART A Nov 19, 2006 PART A [id number] DEHNEH,LY NN PATIENT MEDICARE (WNR) MEDICARE () PART A Nov 19, 2006 PART A [id number] DEHNEH,LY NN PATIENT MEDICARE (WNR) MEDICARE () PART B Nov 19, 2006 PART B [id number] DEHNEH,LY NN PATIENT MEDICARE (WNR) MEDICARE () PART A Nov 19, 2006 PART A [id number] [phone] DEHNEH,LY NN PATIENT MEDICARE (WNR) MEDICARE () PART A Nov 19, 2006 PART A [id number] DEHNEH,LY NN PATIENT MEDICARE (WNR) MEDICARE () PART A Nov 19, 2006 PART A [id number] DEHNEH,LY NN PATIENT MEDICARE (WNR) MEDICARE () PART A Nov 19, 2006 PART A [id number] DEHNEH,LY NN PATIENT MEDICARE (WNR) MEDICARE () PART B Nov 19, 2006 PART B [id number] [phone] DEHNEH,LY NN PATIENT Selected Encounter This section includes the information on record at [facility] for [facility]. Date/Time Encounter Type Encounter Description Reason Pro vider Source Oct 04, 2023 12:38 PM Outpatient Encounter TELEPHONE TRIAGE IHE Encounter Template Text not used by [facility] Plan of Treatment: Future Appointments (+ 6 months) and Future Tests (+/- 45 days) The Plan of Treatment section includes future care activities for the [facility] [place] [facility] This section includes future appointments and future orders which are active, pending or scheduled. Future Appointments This section includes appointments that were scheduled to occur 6 months from the date of the Encounter, up to a maximum of 20 appointments. The data comes from all [facility]. Appointment Date/Time Appointment Type Appointme nt Facility Name Oct 29, 2023 04:00 PM AMBULATORY - PSYCHIATRY [facility] Nov 07, 2023 02:15 PM AMBULATORY - MEDICINE [facility] Nov 08, 2023 11:00 AM [place] [facility] [place] [facility] Nov 09, 2023 01:30 PM AMBULATORY - MEDICINE [facility] Nov 15, 2023 11:00 AM AMBULATORY - REHAB MEDICIN [facility] Nov 16, 2023 10:30 AM AMBULATORY - NONE [place] [facility] [place] [facility] Nov 16, 2023 11:00 AM AMBULATORY - NONE [place] [facility] [place] [facility] Dec 04, 2023 12:00 PM AM[place]ULATORY [place]ICINE [place] [facility] [place] [facility] Dec 27, 2023 09:30 AM [place] [facility] [place] [facility] Feb 05, 2024 09:30 AM [place]UL[place]ORY [place] [facility] [place] [facility] Feb 22, 2024 01:00 PM AMBULATORY - MEDICINE [facility] Feb 25, 2024 01:00 PM [place] [facility] [place] [facility] Feb 25, 2024 03:00 PM AMBULATORY - PSYCHIATRY [facility] Mar 10, 2024 09:15 AM AM[place]ULATORY [place]ICINE [place] [facility] [place] [facility] Mar 13, 2024 03:00 PM [place]UL[place]ORY [place] [facility] [place] [facility] Apr 03, 2024 02:30 PM AMBULATORY PSYCHIATRY [facility] Active, Pending, and Scheduled Orders This section includes a listing of several types of active, pending, and scheduled orders, including clinic medications orders, diagnostic test orders, procedure orders and consult orders; where the start date of the order is 45 days before the date of the Encounter or 45 days after the date of theEncounter. The data comes from all [place] treatment facilities. Test Date/Time Test Type Test Details Facility Name Nov 08, 2023 12:00 AM Laboratory - Chemistry Order CORTISOL (AM) BLOOD (SST-SERUM) [facility] Nov 08, 2023 12:00 AM Laboratory - Chemistry Order MICROALBUMIN CREATININE RATIO PANEL URINE (RANDOM) [facility] Nov 08, 2023 12:00 AM Laboratory - Chemistry Order DEXAMETHASONE (Q) BLOOD (RED-PLAIN) SERUM SP [facility] Nov 09, 2023 02:02 PM Consult Order [facility] Cons Application Assistant'[facility] Social History: Smoking Status (Most current) and [...] 11, 2022 02:50 PM VA-TOBACCO NEVER USED [facility] Tobacco Use History This section includes a history of the smoking, or tobacco-related health factors, that were collected on or before the date of the Encounter. The data comes from the [place] facility where the Encounter took place. Date/Time Smoking Status/Tobacco Use Comment F acility Dec 05, 2019 01:53 PM VA-TOBACCO NEVER USED [facility] May 26, 2016 02:32 PM LIFETIME NON-TOBACCO USER [facility] Encounter Notes: All associated encounter notes This section contains the clinical notes associated to the Encounter. Date/Time Encounter Note(s) Provider Source Oct 04, 2023 12:38 PM RN PROGRESS NOTE: LOCAL TITLE: CCC: CLINICAL TRIAGE STANDARD TITLE: RN PROGRESS NOTE DATE OF NOTE: OCT 04, 2023@12:38:20 ENTRY DATE: OCT 04, 2023@12:38:21 AUTHOR: CARLOS GONZALEZ COSIGNER: URGENCY: STATUS: COMPLETED CCC: CLINICAL TRIAGE Has ADDENDA Patient Demographics Patient Name: INDY KU Patient Primary Address: [address] [place] [address] [place] [address] Patient Primary Phone: [phone] Patient : 1965 Patient Age: 58 Caller/Recipient Relation to Patient: Self Emergency Contact: JAYLAN BENNETT Triage Summary Conducted triage/discussed symptoms Nursing Plan and Disposition Other course(s) of action Generated msg to PACT/Provider Nurse Summary Nurse Summary: Patient calls with concerns of post surgical pain after internal and external hemorrhoidectomy a week ago. She states she spoke to surgical office today and they will not provide additional pain tablets. [facility] Was given Percocet to treat pain and states she is following other post op directions for pain management. Explains she is having frequent loose BM's and this is painful. She believes she has sutures there. Only has a few tablets remaining and hoping pcp can provide more while she is recovering. Advised will notify PACT. Patient can be reached at . Clinical Contact Center Codes Clinic/Location: [facility] PH[facility] RN IMPORTANT: This note was created by [facility] Clinical Contact Center staff. Please do not alert the staff member by adding them as a signer for future communications. Alerts are not monitored by this user. /farhan/ CARLOS BRANCH,RN CLINICAL CONTACT CENTER RN Signed: 10/04/2023 12:38 Receipt Acknowledged By: 10/04/2023 16:04 /farhan/ PEDRO GOMEZ RN REGISTERED NURSE for DYLAN LING 10/05/2023 15:40 /farhan/ MIGUEL MOLINA LPN LPN for RYLAND DE LEON 10/04/2023 ADDENDUM STATUS: COMPLETED Called and spoke to Monson. She was very tearful during conversation. States her first bowel movement since surgery was yesterday and it was very painful. She took colace yesterday but not today. Strongly urged to call the surgeon and stress to them how painful it has been for her despite taking the percocets as prescribed. Monson understands and agrees w/follow up plan. Her friend has been helping her since surgery as Monson has a disabled daughter but will be leaving soon. Friend will take her to surgeon if needed. /farhan/ PEDRO GOMEZ, RN REGISTERED NURSE Signed: 10/04/2023 16:04 CARLOS GONZALEZ [facility]
--- OUTSIDE RECORDS SUMMARY | 2024-03-10 09:19 | XMS_ITS | Encounter Summary ---
Author Name [facility] Organization [facility] Address [address] [place] [address] Care Team Providers Care Flyer Builder Name Role Phone GARRETT GOOD Primary Care [...] ED CE ORGANIZ HMO Oct 06, 2018 O [id number] [phone] MEREDITH KU NN PATIENT ANTHEM BCBS CT FEDERAL PREFERRED PROVIDER ORGANIZAT ION (PPO) BASIC FAMIL Y Jan 31, 2015 [id number] MEREDITH KU NN PATIENT ANTHEM BCBS OF CT (BLUECARD) HIGH DEDUCTIBL E HEALTH PLAN CLINI [facility] SUP HDHP Oct 06, 2018 [id number] MEREDITH KU NN PATIENT BCBS [place] HIGH DEDUCTIBL E HEALTH PLAN CLINI [facility] [place] HDHP Oct 06, 2018 [id number] MEREDITH KU NN PATIENT BCBS OF [place] HIGH DEDUCTIBL E HEALTH PLAN CLINI [facility] SUPP HDHP Oct 06, 2018 [id number] ATTILATAMEKALY NN PATIENT BCBS OF [place] CE ORGANIZ CLINI [facility] AND SUPPO RT Oct 06, [id number] DEHNTAMEKALY NN PATIENT BCBS OF [facility] PREFERRED PROVIDER ORGANIZAT ION (PPO) BASIC FAMIL Y Jan 31, 2015 [id number] [phone] DELUISITOLY NN PATIENT [place] FEPRX PLAN PRESCRIPT ION BCBS FEP Jan 31, 2015 [id number] ELMIRALY NN PATIENT CAREMARK-F EP BCBS PRESCRIPT ION BCBS FEP PLAN Jan 31, 2015 [id number] ELMIRALY NN PATIENT EXPRESS SCRIPTS PRESCRIPT ION HMO Oct 06, 2018 L4TA [id number] DENEREYDATAMEKALY NN PATIENT EXPRESS SCRIPTS PRESCRIPT ION CLINI [facility] SUPPO RT Sep 19, 2018 L4TA [id number] DELUISITOLY NN PATIENT EXPRESS SCRIPTS ([id number]) PRESCRIPT ION HDHP Oct 06, 2018 L4TA [id number] DEHNTAMEKALY NN PATIENT EXPRESS SCRIPTS ([id number]) PRESCRIPT ION L4TA Oct 06, 2018 L4TA [id number] DEHNEHLY NN PATIENT EXPRESS SCRIPTS ([id number]) PRESCRIPT ION L4TA HDHP Oct 06, 2018 L4TA [id number] DELUISITOLY NN PATIENT EXPRESS SCRIPTS RX PRESCRIPT ION CLINI [facility] SUPPO RT Oct 06, 2018 L4TA [id number] DELUISITO,LY NN PATIENT [id number] [facility] CE ORGANIZ CLINI CHRISTINE AND SUPPO RT Oct 06, [id number] ELMIRALY NN PATIENT [id number] [facility] CE ORGANIZ CLINI CHRISTINE AND SUPPO RT Oct 06, [id number] DEHNEH,LY NN PATIENT [id number] BCBSM ([facility]) [facility] SUPPO RT Oct 06, [id number] DEHNEH,LY NN PATIENT G210 BCBS ([facility]) [facility] SUPPO RT Oct 06, [id number] DEHNEH,LY NN PATIENT MEDICARE (WN) MEDICARE ) PART A Nov 19, 2006 PART A [id number] DEHNEH,LY NN PATIENT MEDICARE (WNR) MEDICARE ) PART A Nov 19, 2006 PART A [id number] DEHNEH,LY NN PATIENT MEDICARE (WN) MEDICARE ) PART A Nov 19, 2006 PART A [id number] DEHNEH,LY NN PATIENT MEDICARE (WN) MEDICARE ) PART B Nov 19, 2006 PART B [id number] DEHNEH,LY NN PATIENT MEDICARE (WNR) MEDICARE () PART A Nov 19, 2006 PART A [id number] DEHNEH,LY NN PATIENT MEDICARE (WNR) MEDICARE () PART A Nov 19, 2006 PART A [id number] DEHNEH,LY NN PATIENT MEDICARE (WNR) MEDICARE ) PART A Nov 19, 2006 PART A [id number] DEHNEH,LY NN PATIENT MEDICARE (WNR) MEDICARE ) PART A Nov 19, 2006 PART A [id number] DEHNEH,LY NN PATIENT MEDICARE (WNR) MEDICARE () PART B Nov 19, 2006 PART B [id number] DEHNEH,LY NN PATIENT Selected Encounter This section includes the information on record at ID for the Encounter. Date/Time Encounter Type Encounter Description Reason Provider Source Oct 29, 2023 04:00 PM OFFICE O/P EST MOD 30 MIN [facility] - IND ICD-10-CM F33.40 Major depressive disorder, recurrent, in remission, unsp ADIA BERMUDEZ G IHE Encounter Template Text not used by ID Assessments - Encounter Diagnoses This section includes the primary and secondary diagnoses documented for the Encounter. Date/Time Primary/Secondary Diagnosis Diagnosis Name Provider Source Oct 29, 2023 05:03 PM PRIMARY Major depressive disorder, recurrent, in remission, unsMINDA Heredia CARLOS Plan of Treatment: Future Appointments (+ 6 months) and Future Tests (+/- 45 days) The Plan of Treatment section includes future care activities for the patient from all ID treatmentfacilities. This section includes future appointments and future orders which are active, pending or scheduled. Future Appointments This section includes appointments that were scheduled to occur 6 months from the date of the Encounter, up to a maximum of 20 appointments. The data comes from all ID treatment facilities. Appointment Date/Time Appointment Type Appointme nt Facility Name Nov 07, 2023 02:15 PM AMBULATORY - MEDICINE [facility] Nov 08, 2023 11:00 AM AMBULATORY - MEDICINE [place] [facility] [place] [facility] Nov 09, 2023 01:30 PM AMBULATORY - MEDICINE [facility] Nov 15, 2023 11:00 AM AMBULATORY - REHAB MEDICIN [facility] Nov 16, 2023 10:30 AM AMBULATORY - NONE [facility] [place] [facility] Nov 16, 2023 11:00 AM AMBULATORY - NONE [facility] [place] [facility] Dec 04, 2023 12:00 PM AMBULATORY - MEDICINE [place] [facility] [place] [facility] Dec 27, 2023 09:30 AM AMBULATORY - MEDICINE [facility] [place] [facility] Feb 05, 2024 09:30 AM AMBULATORY - MEDICINE [place] [facility] [place] [facility] Feb 22, 2024 01:00 PM AMBULATORY - MEDICINE [facility] Feb 25, 2024 01:00 PM AMBULATORY - MEDICINE [place] [facility] [place] [facility] Feb 25, 2024 03:00 PM AMBULATORY - PSYCHIATRY [facility] Mar 10, 2024 09:15 AM AMBULATORY - MEDICINE ID [facility] [facility] Mar 13, 2024 03:00 PM AMBULATORY - MEDICINE ID [facility] [place] [facility] Apr 03, 2024 02:30 PM AMBULATORY - PSYCHIATRY [facility] Active, Pending, and Scheduled Orders This section includes a listing of several types of active, pending, and scheduled orders, including clinic medications orders, diagnostic test orders, procedure orders and consult orders; where the start date of the order is 45 days before the date of the Encounter or 45 days after the date of theEncounter. The data comes from all ID treatment facilities. Test Date/Time Test Type Test Details Facility Name Nov 08, 2023 12:00 AM Laboratory - Chemistry Order MICROALBUMIN CREATININE RATIO PANEL URINE (RANDOM) [facility] Nov 08, 2023 12:00 AM Laboratory - Chemistry Order CORTISOL (AM) BLOOD (SST-SERUM) [facility] Nov 08, 2023 12:00 AM Laboratory - Chemistry Order DEXAMETHASONE (Q) BLOOD (RED-PLAIN) SERUM [facility] Nov 09, 2023 02:02 PM Consult Order [facility]-NEPH[facility]OLOGY Cons Contact Lens [employer] [facility] Dec 11, 2023 12:00 AM Laboratory - Chemistry Order OCCULT BLOOD FIT X1 SCREEN (MFP ONLY) [facility] Lab Results: +/- 30 days of the encounter This section includes the Chemistry and Hematology Lab Results on record with ID for the patient. Radiology Reports and Pathology Reports are provided separately, in subsequent sections. Lab Results This section contains the Chemistry/Hematology Results that were resulted 30 days before or 30 daysafter the date of the Encounter. Date/Time Source Result Type Result - Unit Interpretation Reference Range Comment Nov 09, 2023 02:05 PM [facility] MICROALBUMIN CREATININE RATIO PANEL Spe cimen Type: URINE No comment entered. Ordering Provider: ELMER RO Report Released Date/Time: Nov 09, 2023 02:02 PM Reporting Lab: [address] [address] Performing Lab: [address] [address] MICROALBUMIN/C REATININE RATIO 9.4 mg/g 0-29.9 MICROALBUMIN,Q UANTITATIVE 2.0 mg/dL RR UNAVAIL CREATININE URINE 211.76 mg/dL Nov 08, 2023 12:07 PM [facility] MICROALBUMIN CREATININE RATIO PANEL Specimen Type: URINE No comment entered. Ordering Provider: RHYS TAN Report Released Date/Time: Nov 08, 2023 11:43 AM Reporting Lab: [facility] [address] [facility] [address] Performing Lab: [facility] [address] [facility] [address] MICROALBUMIN/C REATININE RATIO canc mg/g 0-29.9 MICROALBUMIN,Q UANTITATIVE < 0.5 mg/dL RR UNAVAIL CREATININE URINE 41.24 mg/dL Nov 07, 2023 03:36 PM [facility] ESR(NEW) Specimen Type: BLOOD Comment: Tests performed on [employer] ISED(405) Ordering Provider: ANKIT FLORES Report Released Date/Time: Nov 07, 2023 03:20 PM Reporting Lab: [facility] [address] [facility] [address] Performing Lab: [facility] [address] [facility] [address] ESR(NEW) 13 mm/h 0-30 Nov 07, 2023 03:36 PM [facility] CRP(INFLAMMATORY) Specimen Type: PLASMA Comment: , Tests performed on [employer] [id number] (405) Ordering Provider: ANKIT FLORES Report Released Date/Time: Nov 07, 2023 03:20 PM Reporting Lab: [facility] [address] [facility] [address] Performing Lab: [facility] [address] [facility] [address] CRP(INFLAMMATO RY) 19.4 mg/L H 0.0-5.0 Nov 07, 2023 03:36 PM [facility] TSH Specimen Type: SERUM Comment: , Tests performed on [employer] SN:[id number] (405) TSH within normal limits. Reflex testing not required. Ordering Provider: ANKIT FLORES Report Released Date/Time: Nov 07, 2023 03:20 PM Reporting Lab: [facility] [address] [facility] [address] Performing Lab: [facility] [address] [facility] [address] TSH 1.16 u[IU]/mL 0.35-5.00 Nov 07, 2023 03:36 PM [facility] CBC NO DIFF Specimen Type: BLOOD No comment entered. Ordering Provider: ANKIT FLORES Report Released Date/Time: Nov 07, 2023 03:20 PM Reporting Lab: [facility] [address] [facility] [address] Performing Lab: [facility] [address] [facility] [address] WBC 5.9 10*3/uL 4.5-11.0 RBC 4.22 10*6/uL 3.93-5.16 HGB 11.6 g/dL L 12-15.2 HEMATOCRIT 34.6 L 36.6-45.6 MCV 82.0 fL 82-99 MCH 27.5 pg 26.2-32.6 MCHC 33.5 g/dL 30.8-35.1 PLT 224 10*3/uL 140-360 MPV 9.8 fL 9.2-12.4 RDW 13.2 12.0-16.0 Nov 07, 2023 03:36 PM [facility] LIVER PROFILE Specimen Type: PLASMA Comment: , Tests performed on [employer] [place] SN:[id number] (405) Ordering Provider: ANKIT FLORES Report Released Date/Time: Nov 07, 2023 03:20 PM Reporting Lab: [facility] [address] [facility] [address] Performing Lab: [facility] [address] [facility] [address] PROTEIN, TOTAL 7.1 g/dL 6.0-8.5 ALBUMIN 4.1 g/dL 3.2-5.0 BILIRUBIN, TOTAL 0.3 mg/dL 0.2-1.2 ALKALINE PHOSPHATASE 74 U/L 40-150 ALT(SGPT) 22 U/L 7-52 AST(SGOT) 20 U/L 5-34 FIB-4 SCORE 1.10 <2.67 Nov 07, 2023 03:36 PM [facility] P4 GLU,BUN,CREAT,LYTES,CA Specimen Type: PLASMA Comment: , Tests performed on [employer] [place] SN:[id number] (405) Ordering Provider: ANKIT FLORES Report Released Date/Time: Nov 07, 2023 03:20 PM Reporting Lab: [facility] [address] [facility] [address] Performing Lab: [facility] [address] [facility] [address] UREA NITROGEN 14 mg/dL 7-25 SODIUM 134 mmol/L L 135-145 POTASSIUM 4.6 mmol/L 3.5-5.0 CHLORIDE 102 mmol/L 100-110 CARBON DIOXIDE 24 mmol/L 20-30 ANION GAP 8 4-16 GLUCOSE 109 mg/dL H 65-100 CREATININE 1.21 mg/dL 0.50-1.50 CALCIUM 10.1 mg/dL 8.5-10.5 eGFR(CKD-EPI 2020) 52 L Nov 05, 2023 10:46 AM [facility] TSH Specimen Type: SERUM No comment entered. Ordering Provider: ELMER RO Report Released Date/Time: Nov 02, 2023 09:03 AM Reporting Lab: [address] [address] Performing Lab: [address] [address] TSH 2.22 u[IU]/mL 0.35-5.00 Nov 05, 2023 10:46 AM [facility] BASIC METABOLIC PANEL (fasting) Specime n Type: SERUM No comment entered. Ordering Provider: ELMER RO Report Released Date/Time: Nov 02, 2023 09:03 AM Reporting Lab: [address] [address] Performing Lab: [address] [address] UREA NITROGEN 16 mg/dL 7-25 GLUCOSE 113 mg/dL H 65-100 SODIUM 134 mmol/L L 135-145 POTASSIUM 4.8 mmol/L 3.5-5.0 CHLORIDE 103 mmol/L 100-110 CO2 24 meq/L 20-30 CREATININE, Serum 1.24 mg/dL 0.50-1.40 eGFR(CKD-EPI 2020) 50 mL/min L >60 Nov 05, 2023 10:46 AM [facility] CBC AND DIFF (AUTO) Specimen Type: BLOOD No comment entered. Ordering Provider: ELMER RO Report Released Date/Time: Nov 02, 2023 09:03 AM Reporting Lab: [address] [address] Performing Lab: [address] [address] WBC 4.11 10*3/uL L 4.50-11.00 RBC 4.34 [...] 10*3/uL 0.00-0.00 Nov 05, 2023 10:46 AM [facility] LIPID PANEL FASTING Specimen Type: SERUM No comment entered. Ordering Provider: ADIA BERMUDEZ Report Released Date/Time: Oct 29, 2023 05:02 PM Reporting Lab: [address] [address] Performing Lab: [address] [address] CHOLESTEROL 224 mg/dL H TRIGLYCERIDE 158 mg/dL H 0-150 LDL calculated 136 mg/dL H 0-129 CHOL/HDL 4.0 HDL CHOLESTEROL 56 mg/dL 40-60 Nov 05, 2023 10:46 AM [facility] GLUCOSE FASTING Specimen Type: SERUM No comment entered. Ordering Provider: RHYS TAN Report Released Date/Time: Oct 18, 2023 12:52 PM Reporting Lab: [facility] [address] [facility] [address] Performing Lab: [address] [address] GLUCOSE 115 mg/dL H 65-100 Nov 05, 2023 10:46 AM [facility] HEMOGLOBIN A1C PANEL Specimen Type: BLOOD Comment: [...] Oct 18, 2023 12:52 PM Reporting Lab: [facility] [address] [facility] [address] Performing Lab: [address] [address] HEMOGLOBIN A1C 5.9 H 4.0-5.6 Nov 05, 2023 10:46 AM [facility] LIVER FUNCTION Specimen Type: SERUM No comment entered. Ordering Provider: RHYS TAN Report Released Date/Time: Oct 18, 2023 12:52 PM Reporting Lab: [address] [address] Performing Lab: [address] [address] PROTEIN,TOTAL 7.0 g/dL 6.0-8.3 ALBUMIN 4.3 g/dL 3.5-5.0 ALKALINE PHOSPHATASE 75 U/L 40-150 AST 15 U/L 5-34 ALT 16 U/L BILIRUBIN, TOTAL 0.4 mg/dL 0.2-1.2 Social History: Smoking Status (Most current) and Tobacco Use (All prior to encounter date) This section includes the most current, and the historical, smoking and tobacco- related health factors from the ID facility where the Encounter took place. Current Smoking Status This section includes the most current smoking, or tobacco-related health factor, from the ID facility where the Encounter took place. Date/Time Current Smoking Status Comment Facil ity Sep 11, 2023 03:00 PM VA-TOBACCO NEVER USED [facility] Tobacco Use History This section includes a history of the smoking, or tobacco-related health factors, that were collected on or before the date of the Encounter. The data comes from the ID facility where the Encounter took place. Date/Time Smoking Status/Tobacco Use Comment F acility Nov 22, 2020 11:00 AM ID-TOBACCO NEVER USED [facility] Jan 31, 2018 09:33 AM ID-TOBACCO NEVER USED [facility] May 10, 2017 01:08 PM LIFETIME NON-TOBACCO USER [facility] Mar 02, 2015 09:05 AM LIFETIME NON-TOBACCO USER [facility] July 10, 2001 02:49 PM LIFETIME NON-TOBACCO USER [facility] Radiology Reports: +/- 30 days of the [...] the Encounter. The data comes from all ID treatment facilities. Date/Time Radiology Report Provider Source Nov 16, 2023 10:34 AM KNEE 3 VIEWS (RIGHT): INDY KU [id number] -[id number] F Exm Date: NOV 16, 2023@10:34 Req Phys: ELMER RO Pat Loc: CWM/SO/PACT EIGHT WH (Req'g Lo Img Loc: [facility] 1 Service: Unknown [facility] [place] [id number] (Case [id number] COMPLETE) KNEE 3 VIEWS (RIGHT) (RAD Detailed) CPT:42110 Reason for Study: right knee pain and decreased rom, s/p fall Clinical History: h/o tkr Report Status: Verified Date Reported: NOV 16, 2023 Date Verified: NOV 16, 2023 Director Of Corporate Real Estate E-Sig:/ES/LOLA NUNEZ JR Report: Study: AP weight-bearing [...] Primary Interpreting Staff: LOLA NUNEZ JR, Radiologist (Director Of Corporate Real Estate) /EALOLA DIAZ JR [facility] Nov 16, 2023 10:07 AM KIDNEY AND BLADDER ULTRASOUND: ELMIRAINDY A [id number] -[id number] F Exm Date: NOV 16, 2023@10:07 Req Phys: ELMER RO F Pat Loc: CWM/SO/PACT EIGHT WH (Req'g Lo Img Loc: ULTRASOUND Service: [place] [address] (Case [id number] COMPLETE) ULTRASOUND KIDNEYS (US Detailed) CPT:63920 Reason for Study: DROPPING IN GFR (Case [id number] COMPLETE) ULTRASOUND URINARY BLADDER (US Detailed) CPT:53168 Clinical History: Report Status: Verified Date Reported: NOV 16, 2023 Date Verified: NOV 16, 2023 Director Of Corporate Real Estate E-Sig:/ES/LOLA NUNEZ JR Report: Study: Genitourinary ultrasound. [...] Primary Interpreting Staff: LOLA NUNEZ JR, Radiologist (Director Of Corporate Real Estate) /EALOLA DIAZ JR [facility] Encounter Notes: All associated encounter notes This section contains the clinical notes associated to the Encounter. Date/Time Encounter Note(s) Provider Source Nov 06, 2023 10:16 AM LETTERS: LOCAL TITLE: MENTAL HEALTH DIAGNOSTIC RESULTS LETTER STANDARD TITLE: LETTERS DATE OF NOTE: NOV 06, 2023@10:16 ENTRY DATE: NOV 06, 2023@10:16:41 AUTHOR: MINDA BERMUDEZ EXP COSIGNER: URGENCY: STATUS: COMPLETED NOV 06, 2023 INDY [address]U [address] [place] [address], [id number] Dear INDY KU: I wanted to update you on your recent lab results that I reviewed: LIPID PANEL FASTING BLOOD (SST-SERUM) [facility] #[id number] Collection time: Nov 05, 2023@10:46 Test Name Result Units Range --------- ------ ----- ----- CHOLESTEROL 224 H mg/dL <7 - 199 TRIGLYCERIDE 158 H mg/dL 0 - 150 LDL calculated 136 H mg/dL 0 - 129 CHOL/HDL 4.0 HDL CHOLESTEROL 56 mg/dL 40 - 60 Please review the elevated cholesterol and triglycerides and LDL levels with your primary care physician at the upcoming visit I look forward to seeing you at your next visit with me Sincerely, Your Mental Health Treatment Team [facility] MINDA BERMUDEZ Oct 29, 2023 04:07 PM TELEHEALTH NOTE: LOCAL TITLE: ID VIDEO CONNECT PSYCHIATRIST NOTE STANDARD TITLE: TELEHEALTH NOTE DATE OF NOTE: OCT 29, 2023@16:07 ENTRY DATE: OCT 29, 2023@16:08:01 AUTHOR: MINDA BERMUDEZ EXP COSIGNER: URGENCY: STATUS: COMPLETED [facility] Video Connect (VVC) Standard Documentation VVC Clinician Resources Only: E911 (Emergency Call Relay Center): [phone] National Veterans Crisis Line - 988 then press #1. [place] Suicide Coordinator [phone], Ext. [phone]; Back-up Ext. [phone] ID , Marilu BONNER [phone] Introduction: Visit is being conducted by ID [employer]. identified with 2 identifiers: [X] Full Name [X] Date of [ ] VA ID Card Emergency Plan: Bozman confirmed and/or provided the following information in case of emergency or technology failure. PATIENT PHONE - PHONE NUMBER [CELLULAR] - Is patient phone number correct, if not, enter below: 's phone number: INDY KU [address] [place] [address], [phone] 's present location and address for appointment: home Bozman's emergency contact name and phone number: chart reported that location is private and safe: Yes Informed Consent: Bozman informed of the risks and benefits of Telehealth video care. Bozman has the right to refuse video services. If refuses video visit, a [id number]-[id number] visit will be scheduled. verbalized consent for this video visit: Yes provided consent for any other persons present for visit: N/A If yes, who and relationship to patient: Secure visit: Visit was locked for security and privacy:Yes 30 min for encounter, including chart review, interview, charting, session started on [employer] connect, but completed by phone chart reviewed Patient relatively stable, but has several ongoing stressors including the stress of hemorrhoid surgery several weeks ago from which she is recovering, followed by primary care. Despite this, mood stable; and depression, anxiety, PTSD symptoms in reasonable control. Affect brightens appropriately. She denies suicidal and violent ideation. Again, h/o using DBT skills to improve safety and sx's. No psychotic symptoms. Well organized thoughts. No paranoid or delusional content presented. No dissociative sx's presented today. Speech is normal. Cognitive exam grossly intact. Future oriented. Has interests. Another review of psychiatric medication, patient would like to keep them the same, although she is trying to gradually decrease Seroquel, see below. Well- tolerated. Benefits outweigh risks. She denies psych medication side effects. No daytime sedation. Reports psych medication compliance She previously denied alcohol and drug abuse; previously reported occasional drink The patient did retire from her job working for the [employer] system, she feels less stress because of leaving this job. wt 252 lbs 08/2023 Active problems - Computerized Problem List is the source for the followin. Dissociative disorder 2. External haemorrhoids 3. Diabetes Mellitus Type 2 ([facility] [id number]) 4. Hyperlipidemia ([facility] [id number]) 5. Anemia ([facility] [id number]) 6. Venous thrombosis 7. Recurrent genital herpes simplex 8. Connective tissue disease 9. Osteoarthritis 10. Binge eating disorder 11. Tendinitis 12. Type II diabetes mellitus 13. Cholelithiasis 14. Myalgia * 15. Laparoscopy, Surgical, Appendectomy 16. Calcifying tendinitis of shoulder 17. Tendinitis * 18. Screening Mammogram for Malignant Neoplasms of the Breast, other 19. Recurrent major depression (SNOMED CT 54123865) 20. Attention-Deficit/Hyperactivity Disorder NOS 21. Obesity (SNOMED CT 459483605) 22. Chronic post-traumatic stress disorder (SNOMED CT 656671386) 23. Fracture 24. Mastodynia * 25. ACCRETIONS ON TEETH 26. UNSPECIFIED DENTAL CARIES 27. Hysterectomy 28. Diabetes Mellitus Type II or unspecified 29. Hypercholesterolemia 30. Other and unspecified ovarian cyst 31. Temporomandibular Joint Syndrome 32. Complete External Hemorrhoidectomy 33. Asthma 34. HTN 35. Anemia Active Outpatient Medications (including Supplies): Active Outpatient Medications Status ======= 1) ACCU-CHEK GUIDE (GLUCOSE) TEST STRIP USE 1 STRIP TO ACTIVE (S) TEST BLOOD SUGARS TWO TIMES A WEEK 2) CHOLECALCIF 25MCG (D3-1,000UNIT) TAB TAKE ONE TABLET ACTIVE BY MOUTH ONCE DAILY FOR VITAMIN SUPPLEMENTATION 3) DICLOFENAC NA 1% TOP GEL APPLY 2 GRAMS TOPICALLY FOUR ACTIVE (S) TIMES DAILY NEEDED FOR OSTEOARTHRITIS - USE DOSING CARD PROVIDED IN BOX 4) ESCITALOPRAM OXALATE 20MG TAB TAKE ONE TABLET BY ACTIVE MOUTH ONCE DAILY FOR MOOD 5) MELATONIN 3MG CAP/TAB TAKE TWO CAPSULE/TABLET BY ACTIVE MOUTH AT BEDTIME NEEDED -FOR INSOMNIA 6) METFORMIN HCL 500MG 24HR SA TAB TAKE TWO TABLETS BY ACTIVE MOUTH ONCE DAILY FOR TYPE 2 DIABETES MELLITUS 7) NAPROXEN 500MG TAB TAKE ONE TABLET [...] 200MG TAB 200MG BY ACTIVE MOUTH TWICE DAILY--patient states that she plans to talk with clinician at [facility] about stop this From [facility] [place]: Plaquanil (hydroxychloroquine) -- see above Psychiatric Medicaton hx: also note that pt [...] tissue disease/fibromyalgia -- followed by rheumatology at [facility] -- dx w RA, possible TREATMENT PLAN: [...] to do this. Continue w psychotherapist at [facility] ctr therapist Dr Nguyen Chris -- pt finds very helpful --although is currently being followed by [facility] during Dr. Chris's leave CONTINUE QUETIAPINE DOSED 25 MG NIGHTLY MAY TAKE UP [...] med, she feels she has significant benefit CONTINUE TRAZODONE 200 MG QHS PRN INSOMNIA [...] together helpful for sleep and well tolerated As noted previously, note that the patient never started BuSpar at a previous appointment, but this could be used at a future appointment if needed , if patient has worsening depression see my previous notes for full discussion and info from Dr Tim stiles QTc interval and risk of drug interactions [...] 12 step program for sexual addictive behaviors, previously reported attending 2 times per wk pt has [...] anxiety ; but sometimes meditation more effective The patient request nutrition consult in community for bevel polisher who specializes in binge eating disorder, this community care consult submitted Medication Reconciliation: Outpatient: Has the patient been [...] whether with a VA or non-VA provider. MH Atyp Antipsych Metabol Syndrome : Lipid profile ordered at this encounter. AIMS Testing: AIMS (Mental Health Instrument) The patient was evaluated for symptoms of tardive dyskinesia using the AIMS. Total score for items 1-7: 0 /es/ MINDA BERMUDEZ MD STAFF PSYCHIATRIST Signed: 10/29/2023 17:03 Receipt Acknowledged By: 10/30/2023 08:09 /farhan/ Melissa Dominguez ADVANCED IUSS ACOUSTIC ANALYST 10/30/2023 08:14 /farhan/ MELODY BARBA ADVANCED IUSS ACOUSTIC ANALYST MINDA BERMUDEZ
--- OUTSIDE RECORDS SUMMARY | 2024-03-10 09:19 | XMS_ITS | Encounter Summary ---
Author Name [place] Address [address] [place] [address] Care Team Providers Care Cloth Inspector Name Role Phone GARRETT GOOD Primary Care [...] Boykin's Name Patient's Relationship to Policy [facility] Oct 06, 2018 O [id number] MEREDITH KU NN PATIENT ANTHEM BCBS CT FEDERAL PREFERRED PROVIDER ORGANIZAT ION (PPO) BASIC FAMIL Y Jan 31, 2015 [id number] MEREDITH KU NN PATIENT ANTHEM BCBS OF CT (BLUECARD) HIGH DEDUCTIBL E HEALTH PLAN CLINI [facility]RISTINE & SUP HDHP Oct 06, 2018 [id number] [phone] MEREDITH KU NN PATIENT BCBS [place] HIGH DEDUCTIBL E HEALTH PLAN CLINI [facility]RI[facility]INE AND BLAKE HDHP Oct 06, 2018 [id number] [phone] MEREDITH KU NN PATIENT BCBS OF [place] HIGH DEDUCTIBL E HEALTH PLAN CLINI CHRISTINE SUPP HDHP Oct 06, 2018 [id number] [phone] DEMEREDITH JORGE NN PATIENT [place]BS OF [place]/FORMERLY [facility] CE ORGANIZ CLINI CHRISTINE AND SUPPO RT Oct 06, 2018 [id number] [phone] MEREDITH KU NN PATIENT BCBS OF [facility] PREFERRED PROVIDER ORGANIZAT ION (PPO) BASIC FAMIL Y Jan 31, 2015 [id number] ELMIRALY NN PATIENT [place] FEPRX PLAN PRESCRIPT ION BCBS FEP Jan 31, 2015 [id number] MEREDITH KU NN PATIENT [place]-F EP BCBS PRESCRIPT ION BCBS FEP PLAN Jan 31, 2015 [id number] ELMIRALY NN PATIENT EXPRESS SCRIPTS PRESCRIPT ION HMO Oct 06, 2018 L4TA [id number] DELUISITOLY NN PATIENT EXPRESS SCRIPTS PRESCRIPT ION CLINI [facility] SUPPO RT Sep 19, 2018 L4TA [id number] DELUISITOLY NN PATIENT EXPRESS SCRIPTS ([id number]) PRESCRIPT ION [facility] Oct 06, 2018 L4TA [id number] DEHNEHLY NN PATIENT EXPRESS SCRIPTS ([id number]) PRESCRIPT ION L4TA Oct 06, 2018 L4TA [id number] DEHNEHLY NN PATIENT EXPRESS SCRIPTS ([id number]) PRESCRIPT ION L4TA HDHP Oct 06, 2018 L4TA [id number] DELUISITOLY NN PATIENT EXPRESS SCRIPTS RX PRESCRIPT ION CLINI [facility] AND SUPPO RT Oct 06, 2018 L4TA [id number] DEHNEH,LY NN PATIENT [id number] [facility] CE ORGANIZ CLINI CHRISTINE AND SUPPO RT Oct 06, 2018 [id number] DEHNTAMEKALY NN PATIENT [id number] [facility] CE ORGANIZ CLINI CHRISTINE AND SUPPO RT Oct 06, [id number] DEHNEH,LY NN PATIENT G210 BCBS ([facility]) [facility] CE ORGANIZ CLINI CHRISTINE AND SUPPO RT Oct 06, [id number] DEHNEH,LY NN PATIENT G210 BCBSM (PROFESSIO NAL) [facility] MAINTENAN CE ORGANIZ CLINI CHRISTINE AND SUPPO RT Oct 06, [id number] DEHNEH,LY NN PATIENT MEDICARE (WNR) MEDICARE ) PART A Nov 19, 2006 PART A [id number] DEHNEH,LY NN PATIENT MEDICARE (WNR) MEDICARE ) PART A Nov 19, 2006 PART A [id number] DEHNEH,LY NN PATIENT MEDICARE (WN) MEDICARE ) PART A Nov 19, 2006 PART A [id number] DEHNEH,LY NN PATIENT MEDICARE ([facility]) MEDICARE ) PART B Nov 19, 2006 PART B [id number] DEHNEH,LY NN PATIENT MEDICARE (WNR) MEDICARE () PART A Nov 19, 2006 PART A [id number] DEHNEH,LY NN PATIENT MEDICARE (WN) MEDICARE () PART A Nov 19, 2006 PART A [id number] DEHNEH,LY NN PATIENT MEDICARE (WN) MEDICARE ) PART A Nov 19, 2006 PART A [id number] DEHNEH,LY NN PATIENT MEDICARE (WNR) MEDICARE ) PART A Nov 19, 2006 PART A [id number] DEHNEH,LY NN PATIENT MEDICARE (WNR) MEDICARE ) PART B Nov 19, 2006 PART B [id number] DEHNEH,LY NN PATIENT Selected Encounter This section includes the information on record at [place] for the Encounter. Date/Time Encounter Type Encounter Description Reason Pro vider Source Oct 04, 2023 12:24 PM Outpatient Encounter ADMIN PAT ACTIVTIES (MASNONCT) IHE Encounter Template Text not used by [place] Plan of Treatment: Future Appointments (+ 6 months) and Future Tests (+/- 45 days) The Plan of Treatment section includes future care activities for the patient from all [place] [facility]. This section includes future appointments and future orders which are active, pending or scheduled. Future Appointments This section includes appointments that were scheduled to occur 6 months from the date of the Encounter, up to a maximum of 20 appointments. The data comes from all [place] treatment [facility]. Appointment Date/Time Appointment Type Appointme nt Facility Name Oct 29, 2023 04:00 PM AMBULATORY - PSYCHIATRY [facility] Nov 07, 2023 02:15 PM AMBULATORY - MEDICINE [facility] Nov 08, 2023 11:00 AM AMBULATORY [place]ICINE [place] [facility] [place] [facility] Nov 09, 2023 01:30 PM AMBULATORY - MEDICINE [facility] Nov 15, 2023 11:00 AM AMBULATORY - REHAB [facility] Nov 16, 2023 10:30 AM AMBULATORY - NONE [place] [facility] [place] [facility] Nov 16, 2023 11:00 AM AMBULATORY - NONE [place] [facility] [place] [facility] Dec 04, 2023 12:00 PM AMBULATORY - MEDICINE [place] [facility] [place] [facility] Dec 27, 2023 09:30 AM AMBULATORY - MEDICINE [place] [facility] [facility] Feb 05, 2024 09:30 AM AMBULATORY - MEDICINE [place] [facility] [facility] Feb 22, 2024 01:00 PM AMBULATORY - MEDICINE [facility] Feb 25, 2024 01:00 PM AMBULATORY - MEDICINE [place] [facility] [place] [facility] Feb 25, 2024 03:00 PM AMBULATORY - PSYCHIATRY [facility] Mar 10, 2024 09:15 AM AMBULATORY - MEDICINE [place] [facility] [facility] Mar 13, 2024 03:00 PM AMBULATORY - MEDICINE [place] [facility] [facility] Apr 03, 2024 02:30 PM AMBULATORY PSYCHIATRY [facility] Active, Pending, and Scheduled Orders This section includes a listing of several types of active, pending, and scheduled orders, including clinic medications orders, diagnostic test orders, procedure orders and consult orders; where the start date of the order is 45 days before the date of the Encounter or 45 days after the date of theEncounter. The data comes from all [place] treatment facilities. Test Date/Time Test Type Test Details Facility Name Nov 08, 2023 12:00 AM Laboratory - Chemistry Order MICROALBUMIN CREATININE RATIO PANEL URINE (RANDOM) [facility] Nov 08, 2023 12:00 AM Laboratory - Chemistry Order CORTISOL (AM) BLOOD (SST-SERUM) [facility] Nov 08, 2023 12:00 AM Laboratory - Chemistry Order DEXAMETHASONE (Q) BLOOD (RED-PLAIN) SERUM [facility] Nov 09, 2023 02:02 PM Consult Order [facility]-NEPHROLOGY Cons Format Proofreader'[facility] Social History: Smoking Status [...] 11, 2022 02:50 PM VA-TOBACCO NEVER USED [facility] Tobacco Use History This section includes a history of the smoking, or tobacco-related health factors, that were collected on or before the date of the Encounter. The data comes from the [place] facility where the Encounter took place. Date/Time Smoking Status/Tobacco Use Comment F acility Dec 05, 2019 01:53 PM VA-TOBACCO NEVER USED [facility] May 26, 2016 02:32 PM LIFETIME NON-TOBACCO USER [facility] Encounter Notes: All associated encounter notes This section contains the clinical notes associated to the Encounter. Date/Time Encounter Note(s) Provider Source Oct 04, 2023 04:07 PM ADDENDUM: LOCAL TITLE: Addendum STANDARD TITLE: ADDENDUM DATE OF NOTE: OCT 04, 2023@16:07:37 ENTRY DATE: OCT 04, 2023@16:07:38 AUTHOR: PEDRO GOMEZ EXP COSIGNER: URGENCY: STATUS: COMPLETED Adding AMA to call and schedule Shafter /es/ PEDRO GOMEZ RN REGISTERED NURSE Signed: 10/04/2023 16:07 Receipt Acknowledged By: 10/05/2023 15:28 /es/ DEL ECHOLS ADVANCED INTAKE MAN === --- Original Document --- 10/04/23 CCC: SCHEDULING ADMINISTRATION: Patient Demographics Patient Name: INDY KU Patient Primary Phone: [phone] Patient Primary Address: [address] [place] [address] Patient : 1965 Patient Age: 58 Caller/Recipient Relation to Patient: Self Scheduling Patient Expects Callback: Yes Open Request: None of the above Administrative Administrative Note Reason: Other Administrative Note Comments: Patient was just released from the hospital for surgery, and needs a follow up discharge appointment. IMPORTANT: This note was created by [facility] staff. Please do not alert the staff member by adding them as a signer for future communications. Alerts are not monitored by this user. /farhan/ ALEXIA VANCE VISN1 CCC AMSA Signed: 10/04/2023 12:24 Receipt Acknowledged By: 10/04/2023 16:07 /farhan/ PEDRO GOMEZ RN REGISTERED NURSE for DYLAN LING * AWAITING SIGNATURE * RYLAND DE LEON 10/05/2023 ADDENDUM STATUS: UNSIGNED You may not VIEW this UNSIGNED Addendum. PEDRO GOMEZ [place] [facility] [place] [facility] Oct 04, 2023 12:24 PM ADMINISTRATIVE NOTE: LOCAL TITLE: CCC: SCHEDULING ADMINISTRATION STANDARD TITLE: ADMINISTRATIVE NOTE DATE OF NOTE: OCT 04, 2023@12:24:09 ENTRY DATE: OCT 04, 2023@12:24:10 AUTHOR: ALEXIA VANCE COSIGNER: URGENCY: STATUS: COMPLETED CCC: SCHEDULING ADMINISTRATION Has ADDENDA Patient Demographics Patient Name: INDY KU Patient Primary Phone: [phone] Patient Primary Address: [address] [place] [address] [place] [address] Patient : 1965 Patient Age: 58 Caller/Recipient Relation to Patient: Self Scheduling Patient Expects Callback: Yes Open Request: None of the above Administrative Administrative Note Reason: Other Administrative Note Comments: Patient was just released from the hospital for surgery, and needs a follow up discharge appointment. IMPORTANT: This note was created by [facility] staff. Please do not alert the staff member by adding them as a signer for future communications. Alerts are not monitored by this user. /farhan/ ALEXIA VANCE VISN1 [facility] AMSA Signed: 10/04/2023 12:24 Receipt Acknowledged By: 10/04/2023 16:07 /farhan/ PEDRO GOMEZ RN REGISTERED NURSE for DYLAN LING 10/05/2023 15:40 /farhan/ MIGUEL MOLINA LPN LAP POLISHER for RYLAND MOISES 10/04/2023 ADDENDUM STATUS: COMPLETED Adding AMA to call and schedule /farhan/ PEDRO GOMEZ RN REGISTERED NURSE Signed: 10/04/2023 16:07 Receipt Acknowledged By: 10/05/2023 15:28 /farhan/ DEL ECHOLS ADVANCED INTAKE MAN 10/05/2023 ADDENDUM STATUS: COMPLETED THIS CASE FITTER HAD SPOKEN TO TO [facility] APPT WITH CWM/SO/PACT EIGHT PROVIDER ON 11/09/2023 AT 13:30 POST [facility] DISCHARGE.THIS CASE FITTER REQUESTED RECORDS FROM [facility]. /farhan/ DEL ECHOLS ADVANCED INTAKE MAN Signed: 10/05/2023 15:32 ALEXIA VANCE [place] [facility]
--- OUTSIDE RECORDS SUMMARY | 2024-03-10 09:19 | XMS_ITS | Encounter Summary ---
Author Name [place] Address [address] [place] [address] Care Team Providers Care Awning Spreader Name Role Phone GARRETT GOOD Primary Care [...] Boykin's Name Patient's Relationship to Policy [facility]kin [facility] Oct 06, 2018 O [id number] MEREDITH KU NN PATIENT ANTHEM BCBS CT FEDERAL PREFERRED PROVIDER ORGANIZAT ION (PPO) BASIC FAMIL Y Jan 31, 2015 [id number] MEREDITH KU NN PATIENT ANTHEM BCBS OF CT (BLUECARD) HIGH DEDUCTIBL E HEALTH PLAN CLINI CHRISTINE & SUP HDHP Oct 06, 2018 [id number] [phone] MEREDITH KU NN PATIENT BCBS [place] HIGH DEDUCTIBL E HEALTH PLAN CLINI [facility]RISTINE AND BLAKE HDHP Oct 06, 2018 [id number] MEREDITH KU NN PATIENT BC[place] HIGH DEDUCTIBL E HEALTH PLAN CLINI CHRISTINE SUPP HDHP Oct 06, 2018 [id number] [phone] DEMEREDITH JORGE NN PATIENT BCBS OF [place] CE ORGANIZ CLINI CHRISTINE AND SUPPO RT Oct 06, 2018 [id number] DEMEREDITH JORGE NN PATIENT BCBS OF [facility] PREFERRED PROVIDER ORGANIZAT ION (PPO) BASIC FAMIL Y Jan 31, 2015 [id number] [phone] DELUISITOLY NN PATIENT [place] FEPRX PLAN PRESCRIPT ION BCBS FEP Jan 31, 2015 [id number] MEREDITH KU NN PATIENT [place]-F EP BCBS PRESCRIPT ION BCBS FEP PLAN Jan 31, 2015 [id number] ELMIRALY NN PATIENT EXPRESS SCRIPTS PRESCRIPT ION HMO Oct 06, 2018 L4TA [id number] DELUISITOLY NN PATIENT EXPRESS SCRIPTS PRESCRIPT ION CLIN[facility] SUPPO RT Sep 19, 2018 L4TA [id number] DELUISITOLY NN PATIENT EXPRESS SCRIPTS ([id number]) PRESCRIPT ION [facility] Oct 06, 2018 L4TA [id number] DEHNTAMEKALY NN PATIENT EXPRESS SCRIPTS ([id number]) PRESCRIPT ION L4TA Oct 06, 2018 L4TA [id number] DEHNTAMEKALY NN PATIENT EXPRESS SCRIPTS ([id number]) PRESCRIPT ION L4TA HD Oct 06, 2018 L4TA [id number] DELUISITOLY NN PATIENT EXPRESS SCRIPTS RX PRESCRIPT ION CLINI [facility] AND SUPPO RT Oct 06, 2018 L4TA [id number] DEHNEH,LY NN PATIENT [id number] [facility] CE ORGANIZ CLINI CHRISTINE AND SUPPO RT Oct 06, 2018 [id number] DEHNTAMEKALY NN PATIENT [id number] [facility] CE ORGANIZ CLINI CHRISTINE AND SUPPO RT Oct 06, [id number] DEHNEH,LY NN PATIENT G210 BCBS ([facility]) [facility] CE ORGANIZ CLINI CHRISTINE AND SUPPO RT Oct 06, [id number] DEHNEH,LY NN PATIENT G210 BCBS (PROFESSIO NAL) [facility] MAINTENAN CE ORGANIZ CLINI CHRISTINE AND SUPPO RT Oct 06, [id number] DEHNEH,LY NN PATIENT MEDICARE (WNR) MEDICARE () PART A Nov 19, 2006 PART A [id number] DEHNEH,LY NN PATIENT MEDICARE (WNR) MEDICARE ) PART A Nov 19, 2006 PART A [id number] DEHNEH,LY NN PATIENT MEDICARE (WNR) MEDICARE ) PART B Nov 19, 2006 PART B [id number] DEHNEH,LY NN PATIENT MEDICARE (WN) MEDICARE ) PART A Nov 19, 2006 PART A [id number] DEHNEH,LY NN PATIENT MEDICARE (WNR) MEDICARE () PART A Nov 19, 2006 PART A [id number] DEHNEH,LY NN PATIENT MEDICARE (WNR) MEDICARE ) PART A Nov 19, 2006 PART A [id number] DEHNEH,LY NN PATIENT MEDICARE (WNR) MEDICARE ) PART A Nov 19, 2006 PART A [id number] DEHNEH,LY NN PATIENT MEDICARE (WNR) MEDICARE ) PART A Nov 19, 2006 PART A [id number] DEHNEH,LY NN PATIENT MEDICARE (WNR) MEDICARE ) PART B Nov 19, 2006 PART B [id number] DEHNEH,LY NN PATIENT Selected Encounter This section includes the information on record at [place] for the Encounter. Date/Time Encounter Type Encounter Description Reason Provider Source Sep 11, 2023 03:45 PM HC PRO PHONE CALL 21-30 MIN ADMIN PAT ACTIVTIES (MASNONCT) ICD-10-CM F50.81 Binge eating disorder MERCEDEZ MCCAIN E Encounter Template Text not used by [place] Assessments - Encounter Diagnoses This section includes the primary and secondary diagnoses documented for the Encounter. Date/Time Primary/Secondary Diagnosis Diagnosis Name Provider Source Sep 11, 2023 03:45 PM PRIMARY Binge eating disorder MERCEDEZ MCCAIN [place] [facility] [place] [facility] Plan of Treatment: Future Appointments (+ 6 months) and Future Tests (+/- 45 days) The Plan of Treatment section includes future care activities for the patient from all [place] [facility]. This section includes future appointments and future orders which are active, pending or scheduled. Future Appointments This section includes appointments that were scheduled to occur 6 months from the date of the Encounter, up to a maximum of 20 appointments. The data comes from all [place] treatment facilities. Appointment Date/Time Appointment Type Appointme nt Facility Name Sep 13, 2023 08:00 AM AMBULATORY - MEDICINE [place] [facility] [facility] Oct 29, 2023 04:00 PM AMBULATORY - PSYCHIATRY [facility] Nov 07, 2023 02:15 PM AMBULATORY - MEDICINE [facility] Nov 08, 2023 11:00 AM AMBULATORY [place] MEDICINE [place] [facility] [place] [facility] Nov 09, 2023 01:30 PM AMBULATORY - MEDICINE [facility] Nov 15, 2023 11:00 AM AMBULATORY - REHAB [facility] Nov 16, 2023 10:30 AM AMBULATORY - NONE [place] [facility] [facility] Nov 16, 2023 11:00 AM AMBULATORY - NONE [place] [facility] [place] [facility] Dec 04, 2023 12:00 PM AMBULATORY - MEDICINE [place] [facility] [place] [facility] Dec 27, 2023 09:30 AM AMBULATORY - MEDICINE [place] [facility] [place] [facility] Feb 05, 2024 09:30 AM AMBULATORY - MEDICINE [place] [facility] [place] [facility] Feb 22, 2024 01:00 PM [facility] Feb 25, 2024 01:00 PM AMBULATORY - MEDICINE [place] [facility] [facility] Feb 25, 2024 03:00 PM AMBULATORY - [facility]IATRY [facility] Mar 10, 2024 09:15 AM AMBULATORY - MEDICINE [facility] Mar 13, 2024 03:00 PM AMBULATORY - MEDICINE [facility] Social History: Smoking Status (Most current) and Tobacco Use (All prior to encounter date) This section includes the most current, and the historical, smoking and tobacco- related health factors from the [place] facility where the Encounter took place. Current Smoking Status This section includes the most current smoking, or tobacco-related health factor, from the [place] facility where the Encounter took place. Date/Time Current Smoking Status Comment Facil ity Aug 11, 2022 02:50 PM VA-TOBACCO NEVER USED [facility] Tobacco Use History This section includes a history of the smoking, or tobacco-related health factors, that were collected on or before the date of the Encounter. The data comes from the [place] facility where the Encounter took place. Date/Time Smoking Status/Tobacco Use Comment F acility Dec 05, 2019 01:53 PM VA-TOBACCO NEVER USED [facility] May 26, 2016 02:32 PM LIFETIME NON-TOBACCO USER [facility] Encounter Notes: All associated encounter notes This section contains the clinical notes associated to the Encounter. Date/Time Encounter Note(s) Provider Source Sep 21, 2023 04:08 PM SOCIAL WORK TELEPH ONE ENCOUNTER NOTE: LOCAL TITLE: TELEPHONE NOTE/SOCIAL WORK STANDARD TITLE: SOCIAL WORK TELEPHONE ENCOUNTER NOTE DATE OF NOTE: SEP 21, 2023@16:08 ENTRY DATE: SEP 21, 2023@16:09:20 AUTHOR: MERCEDEZ MCCAINIGNER: URGENCY: STATUS: COMPLETED reached out to this handbook writer after seeing the invitation to the upcoming Women's focus group. She was not able to attend and wanted to provide feedback so we arranged for a future call which took place on 09/10. She shared that she is dual diagnosed with PTSD and MARCY. Said our services for PCP, therapy and MARCY are all great. She said we are lacking support for women and eating disorders. She said she has recieved services from [facility] in [place] as they specialize in eating disorders. She said our MOVE program does not take into account eating disorders in their program. She said it is too basic for people who have an eating disorder and I agreed with her. I shared that I participated in employee MOVE and have a family member with an eating disorder. Carmichaels said she receives services at the [facility] and [facility] for mental health. She is looking forward to meeting with Dr. Bustos soon. Her weight is a concern to her. She said she enjoys hiking. 25 min. PTSD /es/ MERCEDEZ MCCAIN [facility] Women Veterans Program Wildlife Control Agent Signed: 09/21/2023 16:20 MERCEDEZ MCCAIN [place] [facility]
--- OUTSIDE RECORDS SUMMARY | 2024-03-10 09:20 | XMS_ITS | Encounter Summary ---
Author Name [facility] [place] [facility] [place] Address [address] [place] [address] Care Team Providers Care Fuel Cell Designer Name Role Phone GARRETT GOOD Primary Care [...] Patient's Relationship to Policy [place] [facility] CE ORGANIZ HMO Oct 06, 2018 HMO [id number] MEREDITH KU NN PATIENT ANTHEM BCBS CT FEDERAL PREFERRED PROVIDER ORGANIZAT ION (PPO) BASIC FAMIL Y Jan 31, 2015 [id number] MEREDITH KU NN PATIENT ANTHEM BCBS OF CT (BLUECARD) HIGH DEDUCTIBL E HEALTH PLAN CLINI [facility] & SUP HDHP Oct 06, 2018 [id number] [phone] MEREDITH KU NN PATIENT BCBS [place] HIGH DEDUCTIBL E HEALTH PLAN CLINI [facility] AND [place]LA[place] HDHP Oct 06, 2018 [id number] MEREDITH KU NN PATIENT BCBS OF [place] HIGH DEDUCTIBL E HEALTH PLAN CLINI CHRISTINE SUPP HDHP Oct 06, [id number] DELUISITOLY NN PATIENT BCBS [facility] CE ORGANIZ CLINI CHRISTINE AND SUPPO RT Oct 06, [id number] [phone] DEMEREDITH JORGE NN PATIENT BCBS OF [facility] PREFERRED PROVIDER ORGANIZAT ION (PPO) BASIC FAMIL Y Jan 31, 2015 [id number] DEHNTAMEKALY NN PATIENT [place] FEPRX PLAN PRESCRIPT ION BCBS FEP Jan 31, 2015 [id number] MEREDITH KU NN PATIENT CAREMARK-F EP BCBS PRESCRIPT ION BCBS FEP PLAN Jan 31, 2015 [id number] ELMIRALY NN PATIENT EXPRESS SCRIPTS PRESCRIPT ION HMO Oct 06, 2018 L4TA [id number] DELUISITOLY NN PATIENT EXPRESS SCRIPTS PRESCRIPT ION CLINI [facility] SUPPO RT Sep 19, 2018 L4TA [id number] DEHNTAMEKALY NN PATIENT EXPRESS SCRIPTS ([id number]) PRESCRIPT ION HDHP Oct 06, 2018 L4TA [id number] DEHNEHLY NN PATIENT EXPRESS SCRIPTS ([id number]) PRESCRIPT ION L4TA Oct 06, 2018 L4TA [id number] DEHNEHLY NN PATIENT EXPRESS SCRIPTS ([id number]) PRESCRIPT ION L4TA HDHP Oct 06, 2018 L4TA [id number] DEHNTAMEKALY NN PATIENT EXPRESS SCRIPTS RX PRESCRIPT ION CLINI [facility] SUPPO RT Oct 06, 2018 L4TA [id number] DEHNEH,LY NN PATIENT [id number] [facility] CE ORGANIZ CLINI CHRISTINE AND SUPPO RT Oct 06, [id number] DENEREYDATAMEKALY NN PATIENT [id number] [facility] CE ORGANIZ CLINI CHRISTINE AND SUPPO RT Oct 06, [id number] DEHNEH,LY NN PATIENT [id number] BCBS ([facility]) [facility] CE ORGANIZ CLINI CHRISTINE AND SUPPO RT Oct 06, [id number] DEHNEH,LY NN PATIENT G210 BCBS ([facility]) [facility] AND SUPPO RT Oct 06, [id number] DEHNEH,LY NN PATIENT MEDICARE (WNR) MEDICARE () PART A Nov 19, 2006 PART A [id number] DEHNEH,LY NN PATIENT MEDICARE (WNR) MEDICARE () PART A Nov 19, 2006 PART A [id number] DEHNEH,LY NN PATIENT MEDICARE (WNR) MEDICARE () PART A Nov 19, 2006 PART A [id number] DEHNEH,LY NN PATIENT MEDICARE (WNR) MEDICARE () PART B Nov 19, 2006 PART B [id number] DEHNEH,LY NN PATIENT MEDICARE (WNR) MEDICARE () PART A Nov 19, 2006 PART A [id number] DEHNEH,LY NN PATIENT MEDICARE (WNR) MEDICARE () PART A Nov 19, 2006 PART A [id number] [phone] DEHNEH,LY NN PATIENT MEDICARE (WNR) MEDICARE () PART A Nov 19, 2006 PART A [id number] DEHNEH,LY NN PATIENT MEDICARE (WNR) MEDICARE () PART A Nov 19, 2006 PART A [id number] DEHNEH,LY NN PATIENT MEDICARE (WNR) MEDICARE () PART B Nov 19, 2006 PART B [id number] [phone] DEHNEH,LY NN PATIENT Selected Encounter This section includes the information on record at [facility] for the Encounter. Date/Time Encounter Type Encounter Description Reason Pro vider Source Oct 30, 2023 02:30 PM Outpatient Encounter COMMUNITY CARE CONSULT IHE Encounter Template Text not used by [facility] Plan of Treatment: Future Appointments (+ 6 months) and Future Tests (+/- 45 days) The Plan of Treatment section includes future care activities for the patient from all [place] [facility] This section includes future appointments and future orders which are active, pending or scheduled. Future Appointments This section includes appointments that were scheduled to occur 6 months from the date of the Encounter, up to a maximum of 20 appointments. The data comes from all [facility]. Appointment Date/Time Appointment Type Appointme nt Facility Name Nov 07, 2023 02:15 PM AMBULATORY - MEDICINE [facility] Nov 08, 2023 11:00 AM [place] [facility] [place] [facility] Nov 09, 2023 01:30 PM AMBULATORY - MEDICINE [facility] Nov 15, 2023 11:00 AM AMBULATORY - REHAB MEDICIN [facility] Nov 16, 2023 10:30 AM AMBUL[place]ORY - NONE [place] [facility] [place] [facility] Nov 16, 2023 11:00 AM AMBUL[place]ORY - NONE [place] [facility] [place] [facility] Dec 04, 2023 12:00 PM [place] [facility] [facility] [facility] Dec 27, 2023 09:30 AM [place] [facility] [facility] Feb 05, 2024 09:30 AM [place] [facility] [facility] [facility] Feb 22, 2024 01:00 PM AMBULATORY - MEDICINE [facility] Feb 25, 2024 01:00 PM [place] [facility] [facility] Feb 25, 2024 03:00 PM AMBULATORY - PSYCHIATRY [facility] Mar 10, 2024 09:15 AM [place] [facility] [facility] [place] [facility] Mar 13, 2024 03:00 PM [place] [facility] [facility] [facility] Apr 03, 2024 02:30 PM AMBULATORY PSYCHIATRY [facility] Active, Pending, and Scheduled Orders This section includes a listing of several types of active, pending, and scheduled orders, including clinic medications orders, diagnostic test orders, procedure orders and consult orders; where the start date of the order is 45 days before the date of the Encounter or 45 days after the date of theEncounter. The data comes from all [facility] treatment facilities. Test Date/Time Test Type Test Details Facility Name Nov 08, 2023 12:00 AM Laboratory - Chemistry Order MICROALBUMIN CREATININE RATIO PANEL URINE (RANDOM) SP [facility] Nov 08, 2023 12:00 AM Laboratory - Chemistry Order CORTISOL (AM) BLOOD (SST-SERUM) SP [facility] Nov 08, 2023 12:00 AM Laboratory - Chemistry Order DEXAMETHASONE (Q) BLOOD (RED-PLAIN) SERUM SP [facility] Nov 09, 2023 02:02 PM Consult Order [facility] [place] Dec 11, 2023 12:00 AM Laboratory - Chemistry Order OCCULT BLOOD FIT X1 SCREEN (MFP ONLY) STOOL [facility] Lab Results: +/- 30 days [...] Range Comment Nov 09, 2023 02:05 PM [place] MICROALBUMIN CREATININE RATIO PANEL Spe cimen Type: URINE No comment entered. Ordering Provider: ELMER RO Report Released Date/Time: Nov 09, 2023 02:02 PM Reporting Lab: [facility] [address] [address] Performing Lab: [facility] [address] [address] MICROALBUMIN/C REATININE RATIO 9.4 mg/g 0-29.9 MICROALBUMIN,Q UANTITATIVE 2.0 mg/dL RR UNAVAIL CREATININE URINE 211.76 mg/dL Nov 08, 2023 12:07 PM [facility] MICROALBUMIN CREATININE RATIO PANEL Specimen Type: URINE No comment entered. Ordering Provider: RHYS TAN Report Released Date/Time: Nov 08, 2023 11:43 AM Reporting Lab: [facility] [address] [address] Performing Lab: [facility] [address] [address] MICROALBUMIN/C REATININE RATIO canc mg/g 0-29.9 MICROALBUMIN,Q UANTITATIVE < 0.5 mg/dL RR UNAVAIL CREATININE URINE 41.24 mg/dL Nov 07, 2023 03:36 PM [facility] ESR(NEW) Specimen Type: BLOOD Comment: Tests performed on [employer] ISED(405) Ordering Provider: ANKIT FLORES Report Released Date/Time: Nov 07, 2023 03:20 PM Reporting Lab: [facility] [address] [facility] [address] Performing Lab: [facility] [address] [facility] [address] ESR(NEW) 13 mm/h 0-30 Nov 07, 2023 03:36 PM [facility] TSH Specimen Type: SERUM Comment: , Tests performed on [employer] [place] SN:[id number] (405) TSH within normal limits. Reflex testing not required. Ordering Provider: ANKIT FLORES Report Released Date/Time: Nov 07, 2023 03:20 PM Reporting Lab: [facility] [address] [facility] [address] Performing Lab: [facility] [address] [facility] [address] TSH 1.16 u[IU]/mL 0.35-5.00 Nov 07, 2023 03:36 PM [facility] CRP(INFLAMMATORY) Specimen Type: PLASMA Comment: , Tests performed on [employer] [place] SN:[id number] (405) Ordering Provider: ANKIT FLORES Report Released Date/Time: Nov 07, 2023 03:20 PM Reporting Lab: [facility] [address] [address] Performing Lab: [facility] [address] [facility] [address] CRP(INFLAMMATO RY) 19.4 mg/L H 0.0-5.0 Nov 07, 2023 03:36 PM [facility] LIVER PROFILE Specimen Type: PLASMA Comment: , Tests performed on [employer] [place] SN:[id number] (405) Ordering Provider: ANKIT FLORES Report Released Date/Time: Nov 07, 2023 03:20 PM Reporting Lab: [facility] [address] [facility] [address] Performing Lab: [facility] [address] [facility] [facility] [address] PROTEIN, TOTAL 7.1 g/dL 6.0-8.5 ALBUMIN 4.1 g/dL 3.2-5.0 BILIRUBIN, TOTAL 0.3 mg/dL 0.2-1.2 ALKALINE PHOSPHATASE 74 U/L 40-150 ALT(SGPT) 22 U/L 7-52 AST(SGOT) 20 U/L 5-34 FIB-4 SCORE 1.10 <2.67 Nov 07, 2023 03:36 PM [facility] CBC NO DIFF Specimen Type: BLOOD No comment entered. Ordering Provider: ANKIT FLORES Report Released Date/Time: Nov 07, 2023 03:20 PM Reporting Lab: [facility] [address] [facility] [address] Performing Lab: [facility] [address] [facility] WBC 5.9 10*3/uL 4.5-11.0 RBC 4.22 10*6/uL 3.93-5.16 HGB 11.6 g/dL L 12-15.2 HEMATOCRIT 34.6 L 36.6-45.6 MCV 82.0 fL 82-99 MCH 27.5 pg 26.2-32.6 MCHC 33.5 g/dL 30.8-35.1 PLT 224 10*3/uL 140-360 MPV 9.8 fL 9.2-12.4 RDW 13.2 12.0-16.0 Nov 07, 2023 03:36 PM [facility] P4 GLU,BUN,CREAT,LYTES,CA Specimen Type: PLASMA Comment: , Tests performed on [employer] [place] SN:[id number] (929) Ordering Provider: ANKIT FLORES Report Released Date/Time: Nov 07, 2023 03:20 PM Reporting Lab: [facility] [address] [facility] [address] Performing Lab: [facility] [address] [facility] [address] UREA NITROGEN 14 mg/dL 7-25 SODIUM 134 mmol/L L 135-145 POTASSIUM 4.6 mmol/L 3.5-5.0 CHLORIDE 102 mmol/L 100-110 CARBON DIOXIDE 24 mmol/L 20-30 ANION GAP 8 4-16 GLUCOSE 109 mg/dL H 65-100 CREATININE 1.21 mg/dL 0.50-1.50 CALCIUM 10.1 mg/dL 8.5-10.5 eGFR(CKD-EPI 2020) 52 L Nov 05, 2023 10:46 AM [place] TSH Specimen Type: SERUM No comment entered. Ordering Provider: ELMER RO Report Released Date/Time: Nov 02, 2023 09:03 AM Reporting Lab: [facility] [address] [address] Performing Lab: [address] [address] TSH 2.22 u[IU]/mL 0.35-5.00 Nov 05, 2023 10:46 AM [place] BASIC METABOLIC PANEL (fasting) Specime n Type: SERUM No comment entered. Ordering Provider: ELMER RO Report Released Date/Time: Nov 02, 2023 09:03 AM Reporting Lab: [address] [address] Performing Lab: [address] [address] UREA NITROGEN 16 mg/dL 7-25 GLUCOSE 113 mg/dL H 65-100 SODIUM 134 mmol/L L 135-145 POTASSIUM 4.8 mmol/L 3.5-5.0 CHLORIDE 103 mmol/L 100-110 CO2 24 meq/L 20-30 CREATININE, Serum 1.24 mg/dL 0.50-1.40 eGFR(CKD-EPI 2020) 50 mL/min L >60 Nov 05, 2023 10:46 AM [place] CBC AND DIFF (AUTO) Specimen Type: BLOOD No comment entered. Ordering Provider: ELMER RO Report Released Date/Time: Nov 02, 2023 09:03 AM Reporting Lab: [address] [address] Performing Lab: [address] [address] WBC 4.11 10*3/uL L 4.50-11.00 RBC 4.34 [...] 10*3/uL 0.00-0.00 Nov 05, 2023 10:46 AM [place] LIPID PANEL FASTING Specimen Type: SERUM No comment entered. Ordering Provider: ADIA BERMUDEZ Report Released Date/Time: Oct 29, 2023 05:02 PM Reporting Lab: [facility] [address] [address] Performing Lab: [facility] [address] [address] CHOLESTEROL 224 mg/dL H TRIGLYCERIDE 158 mg/dL H 0-150 LDL calculated 136 mg/dL H 0-129 CHOL/HDL 4.0 HDL CHOLESTEROL 56 mg/dL 40-60 Nov 05, 2023 10:46 AM [facility] GLUCOSE FASTING Specimen Type: SERUM No comment entered. Ordering Provider: RHYS TAN Report Released Date/Time: Oct 18, 2023 12:52 PM Reporting Lab: [address] [address] Performing Lab: [address] [address] GLUCOSE 115 mg/dL H 65-100 Nov 05, 2023 10:46 AM [facility] HEMOGLOBIN A1C PANEL Specimen Type: BLOOD [...] Oct 18, 2023 12:52 PM Reporting Lab: [address] [address] Performing Lab: [address] [address] HEMOGLOBIN A1C 5.9 H 4.0-5.6 Nov 05, 2023 10:46 AM [facility] LIVER FUNCTION Specimen Type: SERUM No comment entered. Ordering Provider: RHYS TAN Report Released Date/Time: Oct 18, 2023 12:52 PM Reporting Lab: [address] [address] Performing Lab: [address] [address] PROTEIN,TOTAL 7.0 g/dL 6.0-8.3 ALBUMIN 4.3 g/dL [...] 11, 2022 02:50 PM [facility] Tobacco Use History This section includes a history of the smoking, or tobacco-related health factors, that were collected on or before the date of the Encounter. The data comes from the [place] facility where the Encounter took place. Date/Time Smoking Status/Tobacco Use Comment F acility Dec 05, 2019 01:53 PM [facility] NEVER USED [facility] May 26, 2016 02:32 PM LIFETIME NON-TOBACCO USER [facility] Radiology Reports: +/- 30 days of [...] the Encounter. The data comes from all [place] treatment facilities. Date/Time Radiology Report Provider Source Nov 16, 2023 10:34 AM KNEE 3 VIEWS (RIGHT): INDY KU [id number] -1965 F Exm Date: NOV 16, 2023@10:34 Req Phys: ELMER RO F Pat Loc: CWM/SO/PACT EIGHT WH (Req'g Lo Img [facility] 1 Service: [place] [address] (Case [id number] COMPLETE) KNEE 3 VIEWS (RIGHT) (RAD Detailed) CPT:48334 Reason for Study: right knee pain and decreased rom, s/p fall Clinical History: h/o tkr Report Status: Verified Date Reported: NOV 16, 2023 Date Verified: NOV 16, 2023 Developer Programmer Analyst E-Sig:/ES/LOLA NUNEZ JR Report: Study: AP weight-bearing [...] Primary Interpreting Staff: LOLA NUNEZ JR, Radiologist (Developer Programmer Analyst) /EAD LOLA NUNEZ JR [facility] Nov 16, 2023 10:07 AM KIDNEY AND BLADDER ULTRASOUND: INDY KU [id number] -1965 F Exm Date: NOV 16, 2023@10:07 Req Phys: ELMER RO Pat Loc: CWM/SO/PACT EIGHT WH (Req'g Lo Img Loc: ULTRASOUND Service: [place] [address] (Case [id number] COMPLETE) ULTRASOUND KIDNEYS (US Detailed) CPT:45923 Reason for Study: DROPPING IN GFR (Case [id number] COMPLETE) ULTRASOUND URINARY BLADDER (US Detailed) CPT:62943 Clinical History: Report Status: Verified Date Reported: NOV 16, 2023 Date Verified: NOV 16, 2023 Developer Programmer Analyst E-Sig:/ES/LOLA NNUEZ JR Report: Study: Genitourinary ultrasound. Comparison: Renal [...] Primary Interpreting Staff: LOLA NUNEZ JR, Radiologist (Developer Programmer Analyst) /LOLA RODRIGUEZ JR [facility] Encounter Notes: All associated encounter notes This section contains the clinical notes associated to the Encounter. Date/Time Encounter Note(s) Provider Source Oct 30, 2023 02:30 PM NONVA NOTE: LOCAL TITLE: [facility] PRESENTING CARE COORD PLAN STANDARD TITLE: NONVA NOTE DATE OF NOTE: OCT 30, 2023@14:30 ENTRY DATE: OCT 30, 2023@14:30:18 AUTHOR: LEIGH BOYKIN EXP COSIGNER: URGENCY: STATUS: COMPLETED Emergency Notification Intake Date Presenting to the Facility: Aug Method of Contact: Notified from ECR worklist Notification ID: [id number] [facility] Referral #: [id number] [facility] Hospital Name: Hospital: [facility] Address: City: [place] State: [place] Zip Code: Phone : [facility] Facility Point of Contact: Name: Halina Phone: Chief complaint: SEVERE ENGORGED EXTERNAL HEMMORRHOIDS Primary Diagnosis: Disposition Discharged Date of discharge: Aug Discharge to Comment: ER Only /farhan/ LEIGH MAGALLON Signed: 10/30/2023 14:31 Receipt Acknowledged By: 10/30/2023 14:38 /es/ NIKI KELLEYN RN-BC REGISTERED NURSE 10/30/2023 15:03 /es/ ESTELA PORTILLO MSN,RN,CNL Licensed And Certified Midwife 11/05/2023 15:07 /es/ ELMER RO MD PRIMARY CARE PHYSICIAN LEIGH BOYKIN FINDLAY
--- OUTSIDE RECORDS SUMMARY | 2024-03-10 09:20 | XMS_ITS | Encounter Summary ---
Author Name [facility] Organization [facility] Address [address] [place] [address] Care Team Providers Care Welder Operator Name Role Phone GARRETT GOOD Primary [...] CE ORGANIZ HMO Oct 06, 2018 [id number] [phone] MREEDITH KU NN PATIENT ANTHEM BCBS CT FEDERAL PREFERRED PROVIDER ORGANIZAT ION (PPO) BASIC FAMIL Y Jan 31, 2015 [id number] [phone] MEREDITH KU NN PATIENT ANTHEM BCBS OF CT (BLUECARD) HIGH DEDUCTIBL E HEALTH PLAN CLINI [facility] SUP HDHP Oct 06, 2018 [id number] MEREDITH KU NN PATIENT BCBS [place] HIGH DEDUCTIBL E HEALTH PLAN CLINI [facility] [place]LA[place] HDHP Oct 06, 2018 [id number] [phone] MEREDITH KU NN PATIENT BCBS OF [place] HIGH DEDUCTIBL E HEALTH PLAN CLINI [facility]INE SUPP HDHP Oct 06, 2018 [id number] ATTILATAMEKALY NN PATIENT BCBS OF [place]/[facility] CE ORGANIZ CLINI [facility] AND SUPPO RT Oct 06, [id number] [phone] DEHNTAMEKALY NN PATIENT BCBS OF [facility] PREFERRED PROVIDER ORGANIZAT ION (PPO) BASIC FAMIL Y Jan 31, 2015 [id number] [phone] DELUISITOLY NN PATIENT [place] FEPRX PLAN PRESCRIPT ION BCBS FEP Jan 31, 2015 [id number] ELMIRALY NN PATIENT [place]ARK-F EP BCBS PRESCRIPT ION BCBS FEP PLAN Jan 31, 2015 [id number] ELMIRALY NN PATIENT EXPRESS SCRIPTS PRESCRIPT ION HMO Oct 06, 2018 L4TA [id number] DENEREYDATAMEKALY NN PATIENT EXPRESS SCRIPTS PRESCRIPT ION CLINI [facility] SUPPO RT Sep 19, 2018 L4TA [id number] [phone] DELUISITOLY NN PATIENT EXPRESS SCRIPTS ([id number]) PRESCRIPT ION HDHP Oct 06, 2018 L4TA [id number] DEHNTAMEKALY NN PATIENT EXPRESS SCRIPTS ([id number]) PRESCRIPT ION L4TA Oct 06, 2018 L4TA [id number] DEHNEHLY NN PATIENT EXPRESS SCRIPTS ([id number]) PRESCRIPT ION L4TA HDHP Oct 06, 2018 L4TA [id number] DELUISITOLY NN PATIENT EXPRESS SCRIPTS RX PRESCRIPT ION CLINI [facility] SUPPO RT Oct 06, 2018 L4TA [id number] DELUISITO,LY NN PATIENT [id number] [facility] CE ORGANIZ CLINI [facility] AND SUPPO RT Oct 06, [id number] [phone] ELMIRALY NN PATIENT [id number] [facility] CE ORGANIZ CLINI CHRISTINE AND SUPPO RT Oct 06, [id number] DEHNEH,LY NN PATIENT [id number] BCBSM ([facility]) [facility] SUPPO RT Oct 06, [id number] [phone] DEHNEH,LY NN PATIENT G210 BCBSM ([facility]) [facility] SUPPO RT Oct 06, [id number] [phone] DEHNEH,LY NN PATIENT MEDICARE (WN) MEDICARE ) PART A Nov 19, 2006 PART A [id number] DEHNEH,LY NN PATIENT MEDICARE (WN) MEDICARE ) PART A Nov 19, 2006 PART A [id number] DEHNEH,LY NN PATIENT MEDICARE (WN) MEDICARE ) PART A Nov 19, 2006 PART A [id number] DEHNEH,LY NN PATIENT MEDICARE ([facility]) MEDICARE ) PART B Nov 19, 2006 PART B [id number] DEHNEH,LY NN PATIENT MEDICARE (WNR) MEDICARE () PART A Nov 19, 2006 PART A [id number] DEHNEH,LY NN PATIENT MEDICARE (WN) MEDICARE ) PART A Nov 19, 2006 PART A [id number] DEHNEH,LY NN PATIENT MEDICARE (WNR) MEDICARE ) PART A Nov 19, 2006 PART A [id number] [phone] DEHNEH,LY NN PATIENT MEDICARE (WNR) MEDICARE ) PART A Nov 19, 2006 PART A [id number] DEHNEH,LY NN PATIENT MEDICARE (WNR) MEDICARE ) PART B Nov 19, 2006 PART B [id number] [phone] DEHNEH,LY NN PATIENT Selected Encounter This section includes the information on record at NE for the Encounter. Date/Time Encounter Type Encounter Description Reason Provider Source Nov 09, 2023 01:30 PM OFFICE O/P EST MOD 30 MIN PRIMARY CARE/MEDICINE ICD-10-CM E78.5 Hyperlipidemia, unspecified STELEA,ELMER F Nav Encounter Template Text not used by NE Assessments - Encounter Diagnoses This section includes the primary and secondary diagnoses documented for the Encounter. Date/Time Primary/Secondary Diagnosis Diagnosis Name Provider Source Nov 09, 2023 02:07 PM PRIMARY Hyperlipidemia, unspecified ELMER RO [place] Nov 09, 2023 02:07 PM SECONDARY Chronic kidney disease, stage 3 unspecified ELMER RO [place] Nov 09, 2023 02:07 PM SECONDARY Pain in right knee ELMER RO [place] Nov 09, 2023 02:07 PM SECONDARY Type 2 diabetes mellitus without complications ELMER RO [place] Plan of Treatment: Future Appointments (+ 6 months) and Future Tests (+/- 45 days) The Plan of Treatment section includes future care activities for the patient from all [facility] This section includes future appointments and future orders which are active, pending or scheduled. Future Appointments This section includes appointments that were scheduled to occur 6 months from the date of the Encounter, up to a maximum of 20 appointments. The data comes from all NE treatment facilities. Appointment Date/Time Appointment Type Appointme nt Facility Name Nov 15, 2023 11:00 AM AMBULATORY - REHAB MEDICIN E [place] Nov 16, 2023 10:30 AM AMBULATORY - NONE [facility] [place] [facility] Nov 16, 2023 11:00 AM AMBULATORY - NONE [facility] [place] [facility] Dec 04, 2023 12:00 PM AMBULATORY - MEDICINE [facility] [place] [facility] Dec 27, 2023 09:30 AM AMBULATORY - MEDICINE [facility] [place] [facility] Feb 05, 2024 09:30 AM AMBULATORY - MEDICINE [facility] [place] [facility] Feb 22, 2024 01:00 PM AMBULATORY - MEDICINE [facility] Feb 25, 2024 01:00 PM AMBULATORY - MEDICINE [facility] [place] [facility] Feb 25, 2024 03:00 PM AMBULATORY - PSYCHIATRY [facility] Mar 10, 2024 09:15 AM AMBULATORY - MEDICINE [facility] [place] [facility] Mar 13, 2024 03:00 PM AMBULATORY - MEDICINE [facility] [place] [facility] Apr 03, 2024 02:30 PM AMBULATORY - PSYCHIATRY [facility] Active, Pending, and Scheduled Orders This section includes a listing of several types of active, pending, and scheduled orders, including clinic medications orders, diagnostic test orders, procedure orders and consult orders; where the start date of the order is 45 days before the date of the Encounter or 45 days after the date of theEncounter. The data comes from all [place] treatment facilities. Test Date/Time Test Type Test Details Facility Name Nov 08, 2023 12:00 AM Laboratory - Chemistry Order CORTISOL (AM) BLOOD (SST-SERUM) [facility] Nov 08, 2023 12:00 AM Laboratory - Chemistry Order MICROALBUMIN CREATININE RATIO PANEL URINE (RANDOM) [facility] Nov 08, 2023 12:00 AM Laboratory - Chemistry Order DEXAMETHASONE (Q) BLOOD (RED-PLAIN) SERUM [facility] Nov 09, 2023 02:02 PM Consult Order [facility]-NEPHROLOGY Cons Wheat Combine Driver's Choice [place] Dec 11, 2023 12:00 AM Laboratory - Chemistry Order OCCULT BLOOD FIT X1 SCREEN (MFP ONLY) STOOL [facility] Lab Results: +/- 30 days of the encounter This section includes the Chemistry and Hematology Lab Results on record with NE for the patient. Radiology Reports and Pathology Reports are provided separately, in subsequent sections. Lab Results This section contains the Chemistry/Hematology Results that were resulted 30 days before or 30 daysafter the date of the Encounter. Date/Time Source Result Type Result - Unit Interpretation Reference Range Comment Nov 09, 2023 02:05 PM [place] MICROALBUMIN CREATININE RATIO PANEL Spe cimen Type: URINE No comment entered. Ordering Provider: ELMER RO Report Released Date/Time: Nov 09, 2023 02:02 PM Reporting Lab: [facility] [address] [address] Performing Lab: [address] [address] MICROALBUMIN/C REATININE RATIO 9.4 mg/g 0-29.9 MICROALBUMIN,Q UANTITATIVE 2.0 mg/dL RR UNAVAIL CREATININE URINE 211.76 mg/dL Nov 08, 2023 12:07 PM [facility] MICROALBUMIN CREATININE RATIO PANEL Specimen Type: URINE No comment entered. Ordering Provider: RHYS TAN Report Released Date/Time: Nov 08, 2023 11:43 AM Reporting Lab: [facility] [address] [address] Performing Lab: [facility] [address] [address] MICROALBUMIN/C REATININE RATIO canc mg/g 0-29.9 MICROALBUMIN,Q UANTITATIVE < 0.5 mg/dL RR UNAVAIL CREATININE URINE 41.24 mg/dL Nov 07, 2023 03:36 PM [facility] TSH Specimen Type: SERUM Comment: , Tests performed on Tan [employer] SN:[id number] (405) TSH within normal limits. Reflex testing not required. Ordering Provider: ANKIT FLORES Report Released Date/Time: Nov 07, 2023 03:20 PM Reporting Lab: [facility] [address] [address] Performing Lab: [facility] [address] [address] TSH 1.16 u[IU]/mL 0.35-5.00 Nov 07, 2023 03:36 PM [facility] CRP(INFLAMMATORY) Specimen Type: PLASMA Comment: , Tests performed on [employer] SN:[id number] (405) Ordering Provider: ANKIT FLORES Report Released Date/Time: Nov 07, 2023 03:20 PM Reporting Lab: [facility] [address] [address] Performing Lab: [facility] [address] [address] CRP(INFLAMMATO RY) 19.4 mg/L H 0.0-5.0 Nov 07, 2023 03:36 PM [facility] ESR(NEW) Specimen Type: BLOOD Comment: Tests performed on [employer] ISED(405) Ordering Provider: ANKIT FLORES Report Released Date/Time: Nov 07, 2023 03:20 PM Reporting Lab: [facility] [address] [address] Performing Lab: [facility] [address] [address] ESR(NEW) 13 mm/h 0-30 Nov 07, 2023 03:36 PM [facility] LIVER PROFILE Specimen Type: PLASMA Comment: , Tests performed on [employer] SN:[id number] (405) Ordering Provider: ANKIT FLORES Report Released Date/Time: Nov 07, 2023 03:20 PM Reporting Lab: [facility] [address] [address] Performing Lab: [facility] [address] [phone] PROTEIN, TOTAL 7.1 g/dL 6.0-8.5 ALBUMIN 4.1 g/dL 3.2-5.0 BILIRUBIN, TOTAL 0.3 mg/dL 0.2-1.2 ALKALINE PHOSPHATASE 74 U/L 40-150 ALT(SGPT) 22 U/L 7-52 AST(SGOT) 20 U/L 5-34 FIB-4 SCORE 1.10 <2.67 Nov 07, 2023 03:36 PM [facility] P4 GLU,BUN,CREAT,LYTES,CA Specimen Type: PLASMA Comment: , Tests performed on [employer] SN:[id number] (405) Ordering Provider: ANKIT FLORES Report Released Date/Time: Nov 07, 2023 03:20 PM Reporting Lab: [facility] [address] [address] Performing Lab: [facility] [address] [phone] UREA NITROGEN 14 mg/dL 7-25 SODIUM 134 mmol/L L 135-145 POTASSIUM 4.6 mmol/L 3.5-5.0 CHLORIDE 102 mmol/L 100-110 CARBON DIOXIDE 24 mmol/L 20-30 ANION GAP 8 4-16 GLUCOSE 109 mg/dL H 65-100 CREATININE 1.21 mg/dL 0.50-1.50 CALCIUM 10.1 mg/dL 8.5-10.5 eGFR(CKD-EPI 2020) 52 L Nov 07, 2023 03:36 PM [facility] CBC NO DIFF Specimen Type: BLOOD No comment entered. Ordering Provider: ANKIT FLORES Report Released Date/Time: Nov 07, 2023 03:20 PM Reporting Lab: [facility] [address] [address] Performing Lab: [facility] [address] [address] WBC 5.9 10*3/uL 4.5-11.0 RBC 4.22 10*6/uL 3.93-5.16 HGB 11.6 g/dL L 12-15.2 HEMATOCRIT 34.6 L 36.6-45.6 MCV 82.0 fL 82-99 MCH 27.5 pg 26.2-32.6 MCHC 33.5 g/dL 30.8-35.1 PLT 224 10*3/uL 140-360 MPV 9.8 fL 9.2-12.4 RDW 13.2 12.0-16.0 Nov 05, 2023 10:46 AM [place] TSH Specimen Type: SERUM No comment entered. Ordering Provider: ELMER RO Report Released Date/Time: Nov 02, 2023 09:03 AM Reporting Lab: [address] [address] Performing Lab: [facility] [address] [address] TSH 2.22 u[IU]/mL 0.35-5.00 Nov 05, 2023 10:46 AM [place] BASIC METABOLIC PANEL (fasting) Specime n Type: SERUM No comment entered. Ordering Provider: ELMER RO Report Released Date/Time: Nov 02, 2023 09:03 AM Reporting Lab: [address] [address] Performing Lab: [facility] [address] [address] UREA NITROGEN 16 mg/dL 7-25 GLUCOSE 113 mg/dL H 65-100 SODIUM 134 mmol/L L 135-145 POTASSIUM 4.8 mmol/L 3.5-5.0 CHLORIDE 103 mmol/L 100-110 CO2 24 meq/L 20-30 CREATININE, Serum 1.24 mg/dL 0.50-1.40 eGFR(CKD-EPI 2020) 50 mL/min L >60 Nov 05, 2023 10:46 AM [place] CBC AND DIFF (AUTO) Specimen Type: BLOOD No comment entered. Ordering Provider: ELMER RO Report Released Date/Time: Nov 02, 2023 09:03 AM Reporting Lab: [facility] [address] [address] Performing Lab: [address] [address] WBC 4.11 10*3/uL L 4.50-11.00 RBC 4.34 [...] 10*3/uL 0.00-0.00 Nov 05, 2023 10:46 AM [place] LIPID PANEL FASTING Specimen Type: SERUM No comment entered. Ordering Provider: ADIA BERMUDEZ Report Released Date/Time: Oct 29, 2023 05:02 PM Reporting Lab: [address] [address] Performing Lab: [address] [address] CHOLESTEROL 224 mg/dL H TRIGLYCERIDE 158 mg/dL H 0-150 LDL calculated 136 mg/dL H 0-129 CHOL/HDL 4.0 HDL CHOLESTEROL 56 mg/dL 40-60 Nov 05, 2023 10:46 AM [facility] GLUCOSE FASTING Specimen Type: SERUM No comment entered. Ordering Provider: RHYS TAN Report Released Date/Time: Oct 18, 2023 12:52 PM Reporting Lab: [address] [address] Performing Lab: [address] [address] GLUCOSE 115 mg/dL H 65-100 Nov 05, 2023 10:46 AM [facility] HEMOGLOBIN A1C PANEL Specimen Type: BLOOD [...] Oct 18, 2023 12:52 PM Reporting Lab: [address] [address] Performing Lab: [address] [address] HEMOGLOBIN A1C 5.9 H 4.0-5.6 Nov 05, 2023 10:46 AM [facility] LIVER FUNCTION Specimen Type: SERUM No comment entered. Ordering Provider: RHYS TAN Report Released Date/Time: Oct 18, 2023 12:52 PM Reporting Lab: [address] [address] Performing Lab: [address] [address] PROTEIN,TOTAL 7.0 g/dL 6.0-8.3 ALBUMIN 4.3 g/dL [...] Height Weight Body Mass Index Source Nov 09, 2023 01:23 PM 97.9 78 106/70 98 237 41 [place] Social History: Smoking Status (Most [...] Facil ity Sep 11, 2023 03:00 PM NE-TOBACCO NEVER USED [place] Tobacco Use History This section includes a history of the smoking, or tobacco-related health factors, that were collected on or before the date of the Encounter. The data comes from the NE facility where the Encounter took place. Date/Time Smoking Status/Tobacco Use Comment F acility Nov 22, 2020 11:00 AM NE-TOBACCO NEVER USED [place] Jan 31, 2018 09:33 AM NE-TOBACCO NEVER USED [place] May 10, 2017 01:08 PM LIFETIME NON-TOBACCO USER [place] Mar 02, 2015 09:05 AM LIFETIME NON-TOBACCO USER [place] July 10, 2001 02:49 PM LIFETIME NON-TOBACCO USER [place] Radiology Reports: +/- 30 days of the [...] the Encounter. The data comes from all [place] treatment facilities. Date/Time Radiology Report Provider Source Nov 16, 2023 10:34 AM KNEE 3 VIEWS (RIGHT): INDY KU [id number] -[id number] F Exm Date: NOV 16, 2023@10:34 Req Phys: STELEA,ELMER F Pat Loc: CWM/SO/PACT EIGHT WH (Req'g Lo Img Loc: [facility]/BUILDING 1 Service: Unknown [place], [place] (Case [id number] COMPLETE) KNEE 3 VIEWS (RIGHT) (RAD Detailed) CPT:58095 Reason for Study: right knee pain and decreased rom, s/p fall Clinical History: h/o tkr Report Status: Verified Date Reported: NOV 16, 2023 Date Verified: NOV 16, 2023 Shed Workers Supervisor E-Sig:/ES/LOLA NUNEZ JR Report: Study: AP weight-bearing [...] Primary Interpreting Staff: LOLA NUNEZ JR, Radiologist (Shed Workers Supervisor) /EAD LOLA NUNEZ JR [facility] Nov 16, 2023 10:07 AM KIDNEY AND BLADDER ULTRASOUND: INDY KU [id number] -[id number] F Exm Date: NOV 16, 2023@10:07 Req Phys: ELMER RO F Pat Loc: CWM/SO/PACT EIGHT WH (Req'g Lo Img Loc: ULTRASOUND Service: Unknown [place], [place] (Case [id number] COMPLETE) ULTRASOUND KIDNEYS (US Detailed) CPT:43844 Reason for Study: DROPPING IN GFR (Case 316 COMPLETE) ULTRASOUND URINARY BLADDER (US Detailed) CPT:75589 Clinical History: Report Status: Verified Date Reported: NOV 16, 2023 Date Verified: NOV 16, 2023 Shed Workers Supervisor E-Sig:/ES/LOLA NUNEZ JR Report: Study: Genitourinary ultrasound. [...] Primary Interpreting Staff: LOLA NUNEZ JR, Radiologist (Shed Workers Supervisor) /LOLA RODRIGUEZ JR [facility] Encounter Notes: All associated encounter notes This section contains the clinical notes associated to the Encounter. Date/Time Encounter Note(s) Provider Source Nov 09, 2023 01:24 PM PHYSICIAN NOTE: LOCAL TITLE: MD NOTE STANDARD TITLE: PHYSICIAN NOTE DATE OF NOTE: NOV 09, 2023@13:24 ENTRY DATE: NOV 09, 2023@13:24:27 AUTHOR: ELMER RO COSIGNER: URGENCY: STATUS: COMPLETED HISTORY OF PRESENT ILLNESS: INDY KU, is a 58 yo FEMALE [place], who presents at the [facility] for follow up visit for chronic medical conditions. History of hemorrhoid surgery on September 27; appointment November 11 with her surgeon for possible rectal prolapse. Active problems - Computerized Problem List is the source for the following: -HLP -DM type 2 -CKD -Right knee chronic pain The following VA and Non-VA meds were reconciled with patient: Active Outpatient Medications (including Supplies): Issue Date Status Last Fill Active Outpatient Medications Refills Expiration ========= 1) ACCU-CHEK GUIDE (GLUCOSE) TEST STRIP ACTIVE (S) Issu:09-11-23 Qty: 50 for 180 days Sig: USE 1 STRIP Refills: 1 Last:12-04-23 TO TEST BLOOD SUGARS TWO TIMES A WEEK Expr:09-11-24 2) CHOLECALCIF 25MCG (D3-1,000UNIT) TAB ACTIVE Issu:09-11-23 Qty: 90 for 90 days Sig: TAKE ONE Refills: 2 Last:11-07-23 TABLET BY MOUTH ONCE DAILY FOR VITAMIN Expr:09-11-24 SUPPLEMENTATION 3) DICLOFENAC NA 1% TOP GEL Qty: 100 for ACTIVE (S) Issu:09-11-23 30 days Sig: APPLY 2 GRAMS TOPICALLY Refills: 3 Last:11-25-23 FOUR TIMES DAILY NEEDED FOR Expr:09-11-24 OSTEOARTHRITIS - USE DOSING CARD PROVIDED IN BOX 4) EMPAGLIFLOZIN 10MG TAB Qty: 90 for 90 ACTIVE Issu:11-08-23 days Sig: TAKE ONE TABLET BY MOUTH Refills: 3 Last:11-08-23 ONCE DAILY FOR TYPE 2 DIABETES Expr:11-08-24 MELLITUS 5) ESCITALOPRAM OXALATE 20MG TAB Qty: 30 ACTIVE Issu:04-20-23 for 30 days Sig: TAKE ONE TABLET BY Refills: 8 Last:10-29-23 MOUTH ONCE DAILY FOR MOOD Expr:04-20-24 6) MELATONIN 3MG CAP/TAB Qty: 60 for 30 ACTIVE Issu:09-03-23 days Sig: TAKE TWO CAPSULE/TABLET BY Refills: 9 Last:11-12-23 MOUTH AT BEDTIME NEEDED -FOR Expr:09-03-24 INSOMNIA 7) METFORMIN HCL 500MG 24HR SA TAB Qty: ACTIVE Issu:07-06-23 120 for 60 days Sig: TAKE TWO TABLETS Refills: 1 Last:10-25-23 BY MOUTH ONCE DAILY FOR TYPE 2 Expr:07-06-24 DIABETES MELLITUS 8) NAPROXEN 500MG TAB Qty: 60 for 30 days ACTIVE (S) Issu:09-11-23 Sig: TAKE ONE TABLET BY MOUTH TWICE Refills: 0 Last:12-01-23 DAILY FOR PAIN TAKE WITH FOOD Expr:09-11-24 9) QUETIAPINE FUMARATE 25MG TAB Qty: 120 HOLD Issu:10-29-23 for 30 days Sig: TAKE ONE TABLET BY Refills: 4 MOUTH AT BEDTIME NEEDED FOR BIPOLAR Expr:10-29-24 DEPRESSION FOR ANXIETY. YOU MAY TAKE UP TO THREE ADDITIONAL TABLETS AT BEDTIME IF NEEDED. 10) TRAZODONE HCL 100MG TAB Qty: 60 for 30 ACTIVE (S) Issu:10-29-23 days Sig: TAKE TWO TABLETS BY MOUTH Refills: 6 Last:11-24-23 AT BEDTIME NEEDED FOR INSOMNIA Expr:10-29-24 ASSOCIATED WITH DEPRESSION 11) VALACYCLOVIR HCL 500MG TAB Qty: 30 for ACTIVE Issu:04-02-23 30 days Sig: TAKE ONE TABLET BY MOUTH Refills: 1 Last:10-18-23 ONCE DAILY FOR INFECTION CAUSED BY A Expr:04-02-24 VIRUS Issue Date Status Last Fill Pending Outpatient Medications Refills Expiration ========= 1) DEXAMETHASONE 1MG TAB Qty: 1 Sig: TAKE PENDING ONE TABLET BY MOUTH ONE TIME TO Refills: 0 PREVENT INFLAMMATION/SWELLING Start Date Active Non-VA Medications Refills Expiration ========= 1) Non-VA HYDROXYCHLOROQUINE SULFATE 200MG ACTIVE TAB SiMG BY MOUTH TWICE DAILY 13 Total Medications ALLERGIES: ========= ATIVAN, SIMVASTATIN LAB HISTORY: glucose 113, hga1c- 5.9; GFR- 50 the rest of BMP, LFT's, TSH, - normal limits Total cholesterol 224 with triglycerides 158 and LDL 136 CBChemoglobin 11.2stable anemia HISTORY: PERIOD OF SERVICE - [employer] [facility] FROM June TO June COMBAT SERVICE INDICATED: No REVIEW OF SYSTEMS: No fever, chills, No chest pain shortness of breath at rest or with ambulation No cough or wheezing No abdominal pain nausea or vomiting right knee chronic pain and decreased range of motion No headaches or dizziness PHYSICAL EXAMINATION: WD/obese seems to be in NAD S1-S2 positive, RRR ALVAREZ, CTA bilateral Abdomen soft nontender to palpation, obese No edema lower extremities; b/l knee old surgical scars AAO x3;ambulates with difficulty due to right knee pain and decreased range of motion ASSESSMENT/PLAN: -HLP not on statins--she states was not able to tolerate due to muscle spasms in the past I offered her ezetimibe but she states will think and let me know I advised to decrease fat and cholesterol in diet and exercise as tolerated -DM type 2-managed by Dr. Chan -CKD -GFR 50 decreased from 80 a few months ago Kidney and bladder ultrasound ordered Naproxen discontinued nephrology consultation placed History of hysterectomy -Right knee pain after mechanical fall 5 days ago; not able to bend her knee after the fall I discussed the physical therapy team for knee brace for the CT of the right lower extremity ordered Orthopedics consultation placed FOLLOW UP: ========= RTC -2 months follow-up with fasting labs hyperlipidemia chronic kidney disease Today's documentation was made using voice recognition software. This note may contain spelling/grammatical errors secondary to this software. Every effort is made to correct errors, but if mistakes are found they need to be taken in context. UPCOMING APPOINTMENTS: 11/09/2023 13:30 CWM/SO/PACT EIGHT 11/14/2023 14:15 CWM/NO/DENTAL/RDH1 PM 12/04/2023 13:30 CWM/SO/PACT EIGHT WH 01/28/2024 15:00 CWM/SO/VVC/MHC/BERMUDEZ 01/29/2024 10:30 NHM/OPT/VISUAL IMAGING 01/29/2024 11:00 CWM/NO/OPTOMETRY/BRIONNA 03/13/2024 15:00 CWM/NO/PODIATRY A No barriers; Patient understands and agrees to current treatment plan. If pt has any questions, concerns, or changes in current health status he/she will call or come [facility] to the [facility]. Assess Statin Use - Lipids (CVD/DM): The patient declines to be treated with a statin. Medication Reconciliation: Outpatient: Has the patient been taking medications as documented in the EMLR? YES: The patient has been taking medications as documented in the EMLR. Essential Medication List for Review used to complete this medication reconciliation. INCLUDED IN THIS LIST: Alphabetical list of active outpatient prescriptions dispensed from this NE (local) and dispensed from another NE or [facility] facility (remote) as well as inpatient [...] JLV. Allergies/ADRs (Tool #5) FACILITY ALLERGY/ADR -------- [facility] [place] [facility] [place] [facility] SIMVASTATIN [facility] ACETAMINOPHEN/HYDROCODONE [facility] SIMVASTATIN Med Recon NoGlossary (Tool #1) INCLUDED IN THIS LIST: Alphabetical list of active outpatient prescriptions dispensed from this NE (local) and dispensed from another NE or [facility] facility (remote) as well as inpatient orders (local pending and active), local clinic medications, locally documented non-VA medications, and local prescriptions that have or been discontinued in the past 90 days. Non-VA Meds Last Documented On: July 07, 2019 NOTE The display of VA prescriptions dispensed from another NE or DoD facility (remote) is limited to active outpatient prescription entries matched to National Drug File at the originating site and may not include some items such as investigational drugs, compounds, etc. NOT INCLUDED IN THIS LIST: Medications self-entered by the patient into personal health records (i.e. [employer]) are NOT included in this list. Non-VA medications documented outside this [place], remote inpatient orders (regardless of status) and remote clinic medications are NOT included in this list. The patient and provider must always discuss medications the patient is taking, regardless of where the medication was dispensed or obtained. -------- OUTPT CHOLECALCIF 25MCG (D3-1,000UNIT) TAB (Status = Discontinued) TAKE ONE TABLET BY MOUTH ONCE DAILY FOR VITAMIN SUPPLEMENTATION Rx# [id number] Last Released: 08/17/23 Qty/Days Supply: 100 Rx Expiration Date: 12/16/23 Refills Remainin Indication: FOR VITAMIN D DEFICIENCY OUTPT CHOLECALCIF 25MCG (D3-1,000UNIT) TAB (Status = Active) TAKE ONE TABLET BY MOUTH ONCE DAILY FOR VITAMIN SUPPLEMENTATION Rx# [id number] Last Released: 10/30/23 Qty/Days Supply: 90 Rx Expiration Date: 09/11/24 Refills Remainin Indication: FOR VITAMIN D DEFICIENCY OUTPT DEXAMETHASONE 1MG TAB (Status = Pending) TAKE ONE TABLET BY MOUTH ONE TIME to prevent inflammation/swelling Login Date: 11/08/23 Qty/Days Supply: 03/20 Refills Ordered: 0 OUTPT DICLOFENAC NA 1% TOP GEL (Status = Discontinued) APPLY 2 GRAMS TOPICALLY FOUR TIMES DAILY NEEDED FOR OSTEOARTHRITIS - USE DOSING CARD PROVIDED IN BOX Rx# [id number] Last Released: 09/04/23 Qty/Days Supply: 30 Rx Expiration Date: 12/16/23 Refills Remainin OUTPT DICLOFENAC NA 1% TOP GEL (Status = Active/Suspended) APPLY 2 GRAMS TOPICALLY FOUR TIMES DAILY NEEDED FOR OSTEOARTHRITIS - USE DOSING CARD PROVIDED IN BOX Rx# [id number] Last Released: 10/12/23 Qty/Days Supply: 10030 Rx Expiration Date: 09/11/24 Refills Remainin OUTPT EMPAGLIFLOZIN 10MG TAB (Status = Active) TAKE ONE TABLET BY MOUTH ONCE DAILY FOR TYPE 2 DIABETES MELLITUS Rx# [id number] Last Released: 11/09/23 Qty/Days Supply: Rx Expiration Date: 11/08/24 Refills Remainin Indication: FOR TYPE 2 DIABETES MELLITUS OUTPT ESCITALOPRAM OXALATE 20MG TAB (Status = Active) TAKE ONE TABLET BY MOUTH ONCE DAILY FOR MOOD Rx# [id number] Last Released: 10/30/23 Qty/Days Supply: Rx Expiration Date: 04/20/24 Refills Remainin Remote HYDROXYCHLOROQUINE SO4 200MG TAB TAKE ONE TABLET BY MOUTH TWICE A DAY Last Filled: 05/02/23 (Active at [facility]) Rx Expiration Date: 12/21/23 Days Supply: 90 Non-VA HYDROXYCHLOROQUINE SULFATE 200MG TAB TAKE ONE TABLET BY MOUTH TWICE DAILY prescribed thr [email or web address]] [facility] OUTPT MELATONIN 3MG CAP/TAB (Status = Discontinued) TAKE TWO CAPSULE/TABLET BY MOUTH AT BEDTIME NEEDED -FOR INSOMNIA Rx# [id number] Last Released: 08/27/23 Qty/Days Supply: Rx Expiration Date: 11/21/23 Refills Remainin OUTPT MELATONIN 3MG CAP/TAB (Status = Active) TAKE TWO CAPSULE/TABLET BY MOUTH AT BEDTIME NEEDED -FOR INSOMNIA Rx# [id number] Last Released: 10/30/23 Qty/Days Supply: Rx Expiration Date: 09/03/24 Refills Remainin OUTPT METFORMIN HCL 500MG 24HR SA TAB (Status = Active) TAKE TWO TABLETS BY MOUTH ONCE DAILY FOR TYPE 2 DIABETES MELLITUS Rx# [id number] Last Released: 10/12/23 Qty/Days Supply: 120/60 Rx Expiration Date: 07/06/24 Refills Remainin Indication: FOR TYPE 2 DIABETES MELLITUS OUTPT NAPROXEN 500MG TAB (Status = Discontinued) TAKE ONE TABLET BY MOUTH TWICE DAILY FOR PAIN TAKE WITH FOOD Rx# [id number] Last Released: 08/17/23 Qty/Days Supply: 6030 Rx Expiration Date: 12/16/23 Refills Remainin Indication: FOR PAIN OUTPT NAPROXEN 500MG TAB (Status = Discontinued) TAKE ONE TABLET BY MOUTH TWICE DAILY FOR PAIN TAKE WITH FOOD Rx# [id number] Last Released: 10/24/23 Qty/Days Supply: 60/30 Rx Expiration Date: 09/11/24 Refills Remainin Indication: FOR PAIN OUTPT PHENYLEPHRINE HCL 0.25% RTL SUPP (Status = ) INSERT 1 SUPPOSITORY(IES) RECTALLY ONCE DAILY NEEDED FOR HEMORRHOIDS Rx# [id number] Last Released: 09/13/23 Qty/Days Supply: Rx Expiration Date: 10/11/23 Refills Remainin Indication: FOR HEMORRHOIDS OUTPT QUETIAPINE FUMARATE 25MG TAB (Status = Discontinued) TAKE ONE TABLET BY MOUTH AT BEDTIME NEEDED FOR ANXIETY. YOU MAY TAKE UP TO THREE ADDITIONAL TABLETS AT BEDTIME IF NEEDED. Rx# [id number] Last Released: 10/04/23 Qty/Days Supply: 120/30 Rx Expiration Date: 04/20/24 Refills Remainin Indication: FOR BIPOLAR DEPRESSION OUTPT QUETIAPINE FUMARATE 25MG TAB (Status = On Hold) TAKE ONE TABLET BY MOUTH AT BEDTIME NEEDED FOR BIPOLAR DEPRESSION FOR ANXIETY. YOU MAY TAKE UP TO THREE ADDITIONAL TABLETS AT BEDTIME IF NEEDED. Rx# [id number] Last Released: Qty/Days Supply: 120/30 Rx Expiration Date: 10/29/24 Refills Remainin Indication: FOR BIPOLAR DEPRESSION OUTPT TRAZODONE HCL 100MG TAB (Status = Discontinued) TAKE TWO TABLETS BY MOUTH AT BEDTIME NEEDED FOR INSOMNIA ASSOCIATED WITH DEPRESSION Rx# [id number] Last Released: 10/12/23 Qty/Days Supply: Rx Expiration Date: 04/20/24 Refills Remainin Indication: FOR INSOMNIA ASSOCIATED WITH DEPRESSION OUTPT TRAZODONE HCL 100MG TAB (Status = Active/Suspended) TAKE TWO TABLETS BY MOUTH AT BEDTIME NEEDED FOR INSOMNIA ASSOCIATED WITH DEPRESSION Rx# [id number] Last Released: Qt Supply: Rx Expiration Date: 10/29/24 Refills Remainin Indication: FOR INSOMNIA ASSOCIATED WITH DEPRESSION OUTPT VALACYCLOVIR HCL 500MG TAB (Status = Active) TAKE ONE TABLET BY MOUTH ONCE DAILY FOR INFECTION CAUSED BY A VIRUS Rx# [id number] Last Released: 10/12/23 Qty/Days Supply: Rx Expiration Date: 04/02/24 Refills Remainin Indication: FOR INFECTION CAUSED BY A VIRUS -------- SUPPLIES -------- OUTPT ACCU-CHEK GUIDE (GLUCOSE) TEST STRIP (Status = Discontinued) USE 1 STRIP TO TEST BLOOD SUGARS TWO TIMES A WEEK Rx# [id number] Last Released: 06/09/23 Qty/Days Supply: 50180 Rx Expiration Date: 05/18/24 Refills Remainin OUTPT ACCU-CHEK GUIDE (GLUCOSE) TEST STRIP (Status = Active/Suspended) USE 1 STRIP TO TEST BLOOD SUGARS TWO TIMES A WEEK Rx# [id number] Last Released: Qt Supply: 50 Rx Expiration Date: 09/11/24 Refills Remainin OUTPT ACCU-CHEK GUIDE ME (GLUCOSE) METER (Status = ) USE METER TO TEST BLOOD SUGARS ONCE DAILY Rx# [id number] Last Released: 07/10/23 Qty/Days Supply: Rx Expiration Date: 10/04/23 Refills Remainin /farhan/ ELMER RO MD PRIMARY CARE PHYSICIAN Signed: 11/09/2023 14:10 ELMER RO [place] Nov 01, 2023 12:39 PM ADMINISTRATIVE NOT E: LOCAL TITLE: ADMINISTRATIVE NOTE STANDARD TITLE: ADMINISTRATIVE NOTE DATE OF NOTE: NOV 01, 2023@12:39 ENTRY DATE: NOV 01, 2023@12:40 AUTHOR: SAM RAUSCH COSIGNER: URGENCY: STATUS: COMPLETED [facility] [address] [place] [phone] * [phone] * [facility] [address] [place] [id number] Date: NOV 01, 2023 re: This is a reminder of your upcoming PCP appt with ELMER RO. Appointment Date: Oct@13:30 Appointment Type: In-person visit Fasting blood work NON fasting blood work LEFT MESSAGE ON VOICEMAIL TO CONFIRM APPT Sincerely, Office Staff for: ELMER RO Primary Care Provider [facility] [address] [address] T [phone] F [phone] Upcoming Appointments: 11/08/2023 11:00 NHM/ENDOCRINE 11/09/2023 13:30 CWM/SO/PACT [facility] 11/14/2023 14:15 CWM/NO/DENTAL/RDH1 PM 12/04/2023 13:30 CWM/SO/PACT [facility] 01/28/2024 15:00 CWM/SO/VVC/MHC/BERMUDEZ 01/29/2024 10:30 NHM/OPT/VISUAL IMAGING 01/29/2024 11:00 CWM/NO/OPTOMETRY/BRIONNA 03/13/2024 15:00 CWM/NO/PODIATRY A APPOINTMENT [facility] (SPOPC OR SO = [address]) (GOPC OR GO = [address]) (NHM or NO = [facility]) (VVC - Video Call) (Tel-X Telephone Visit) (TH - Telehealth) /farhan/ SAM MAGALLON Signed: 11/01/2023 12:40 SAM RAUSCH
--- OUTSIDE RECORDS SUMMARY | 2024-03-10 09:20 | XMS_ITS | Encounter Summary ---
Author Name [facility] [place] Address [address] [place] [address] Care Team Providers Care Machinist Linotype Name Role Phone GARRETT GOOD Primary Care [...] Boykin's Name Patient's Relationship to Policy Boykin Sam[facility] Systems[facility]LY [facility] ORGANIZ HMO Oct 06, 2018 HMO [id number] MEREDITH TRENT NN PATIENT ANTHEM BCBS CT FEDERAL PREFERRED PROVIDER ORGANIZAT ION (PPO) BASIC FAMIL Y Jan 31, 2015 [id number] MEREDITH TRENT NN PATIENT ANTHEM BCBS OF CT (BLUECARD) HIGH DEDUCTIBL E HEALTH PLAN [facility]INI [facility]P HDHP Oct 06, 2018 [id number] MEREDITH TRENT NN PATIENT BCBS [place] HIGH DEDUCTIBL E HEALTH PLAN [facility] [place] HDHP Oct 06, 2018 [id number] [phone] MEREDITH TRENT NN PATIENT BCBS OF [place] HIGH DEDUCTIBL E HEALTH PLAN CLINI [facility] SUPP HDHP Oct 06, [id number] [phone] DELUISITOLY NN PATIENT BCBS OF DE/Medypal [facility] CE ORGANIZ CLINI [facility] AND SUPPO RT Oct 06, [id number] DEMEREDITH JORGE NN PATIENT BCBS OF [facility] PREFERRED PROVIDER ORGANIZAT ION (PPO) BASIC FAMIL Y Jan 31, 2015 [id number] DEHNTAMEKALY NN PATIENT [place] FEPRX PLAN PRESCRIPT ION BCBS FEP Jan 31, 2015 [id number] ELMIRALY NN PATIENT [place]-F EP BCBS PRESCRIPT ION BCBS FEP PLAN Jan 31, 2015 [id number] ELMIRALY NN PATIENT EXPRESS SCRIPTS PRESCRIPT ION HMO Oct 06, 2018 L4TA [id number] DELUISITOLY NN PATIENT EXPRESS SCRIPTS PRESCRIPT ION CLINI [facility]PPO RT Sep 19, 2018 L4TA [id number] DELUISITOLY NN PATIENT EXPRESS SCRIPTS ([id number]) PRESCRIPT ION HDHP Oct 06, 2018 L4TA [id number] DEHNEHLY NN PATIENT EXPRESS SCRIPTS ([id number]) PRESCRIPT ION L4TA Oct 06, 2018 L4TA [id number] DEHNEHLY NN PATIENT EXPRESS SCRIPTS ([id number]) PRESCRIPT ION L4TA HDHP Oct 06, 2018 L4TA [id number] DELUISITOLY NN PATIENT EXPRESS SCRIPTS RX PRESCRIPT ION CLINI [facility] SUPPO RT Oct 06, 2018 L4TA [id number] DEHNEH,LY NN PATIENT [id number] [facility] CE ORGANIZ CLINI [facility] AND SUPPO RT Oct 06, [id number] DEHNTAEMKALY NN PATIENT [id number] [facility] CE ORGANIZ CLINI [facility] AND SUPPO RT Oct 06, [id number] DEHNEH,LY NN PATIENT [id number] BCBSM ([facility]) [facility] SUPPO RT Oct 06, 2018 [id number] DEHNEH,LY NN PATIENT G210 BCBS ([facility]) [facility] CE ORGANIZ CLINI [facility] SUPPO RT Oct 06, [id number] DEHNEH,LY NN PATIENT MEDICARE (WNR) MEDICARE ) PART A Nov 19, 2006 PART A [id number] DEHNEH,LY NN PATIENT MEDICARE (WNR) MEDICARE () PART A Nov 19, 2006 PART A [id number] DEHNEH,LY NN PATIENT MEDICARE (WNR) MEDICARE () PART A Nov 19, 2006 PART A [id number] DEHNEH,LY NN PATIENT MEDICARE (WN) MEDICARE ) PART B Nov 19, 2006 PART B [id number] DEHNEH,LY NN PATIENT MEDICARE (WNR) MEDICARE () PART A Nov 19, 2006 PART A [id number] DEHNEH,LY NN PATIENT MEDICARE (WNR) MEDICARE () PART A Nov 19, 2006 PART A [id number] DEHNEH,LY NN PATIENT MEDICARE (WNR) MEDICARE ) PART A Nov 19, 2006 PART A [id number] DEHNEH,LY NN PATIENT MEDICARE (WNR) MEDICARE () PART A Nov 19, 2006 PART A [id number] DEHNEH,LY NN PATIENT MEDICARE (WNR) MEDICARE () PART B Nov 19, 2006 PART B [id number] [phone] DEHNEH,LY NN PATIENT Selected Encounter This section includes the information on record at [place] for the Encounter. Date/Time Encounter Type Encounter Description Reason Pro vider Source Nov 02, 2023 08:36 AM Outpatient Encounter PRIMARY CARE/MEDICINE IHE Encounter Template Text not used by [facility] Plan of Treatment: Future Appointments (+ 6 months) and Future Tests (+/- 45 days) The Plan of Treatment section includes future care activities for the patient from all [place] [facility]. This section includes future appointments and future orders which are active, pending or scheduled. Future Appointments This section includes appointments that were scheduled to occur 6 months from the date of the Encounter, up to a maximum of 20 appointments. The data comes from all [facility]. Appointment Date/Time Appointment Type Appointme nt Facility Name Nov 07, 2023 02:15 PM AMBULATORY - MEDICINE [facility] Nov 08, 2023 11:00 AM [place]IC[place] [facility] Nov 09, 2023 01:30 PM AMBULATORY - MEDICINE [facility] Nov 15, 2023 11:00 AM AMBULATORY - REHAB MEDICIN [facility] Nov 16, 2023 10:30 AM AMBULATORY - NONE [place] [facility] Nov 16, 2023 11:00 AM AMBULATORY - NONE [place] [facility] Dec 04, 2023 12:00 PM AMBULATORY - [place]ICINE [place] [facility] Dec 27, 2023 09:30 AM AMBULATORY - [place]ICINE [place] [facility] Feb 05, 2024 09:30 AM AMBULATORY - [place]ICINE [place] [facility] Feb 22, 2024 01:00 PM AMBULATORY - MEDICINE [facility] Feb 25, 2024 01:00 PM AMBULATORY - [place]ICINE [place] [facility] Feb 25, 2024 03:00 PM AMBULATORY - PSYCHIATRY [facility] Mar 10, 2024 09:15 AM AMBULATORY - MEDICINE [place] [facility] Mar 13, 2024 03:00 PM AMBULATORY - MEDICINE [place] [facility] Apr 03, 2024 02:30 PM AMBULATORY PSYCHIATRY [facility] Active, Pending, and Scheduled Orders This [...] Order MICROALBUMIN CREATININE RATIO PANEL URINE (RANDOM) [facility] Nov 08, 2023 12:00 AM Laboratory - Chemistry Order CORTISOL (AM) BLOOD (SST-SERUM) [facility] Nov 08, 2023 12:00 AM Laboratory - Chemistry Order DEXAMETHASONE (Q) BLOOD (RED-PLAIN) SERUM [facility] Nov 09, 2023 02:02 PM Consult Order [facility] Cons Manager [facility] [place] Dec 11, 2023 12:00 AM Laboratory - Chemistry Order OCCULT BLOOD FIT X1 SCREEN (MFP ONLY) ST[facility] Lab Results: +/- 30 days of the encounter This section includes the Chemistry and Hematology Lab Results on record with [place] for the patient. Radiology Reports and Pathology Reports are provided separately, in subsequent sections. Lab Results This section contains the Chemistry/Hematology Results that were resulted 30 days before or 30 daysafter the date of the Encounter. Date/Time Source Result Type Result - Unit Interpretation Reference Range Comment Nov 09, 2023 02:05 PM [place] MICROALBUMIN CREATININE RATIO PANEL Spe cimen Type: URINE No comment entered. Ordering Provider: ELMER RO Report Released Date/Time: Nov 09, 2023 02:02 PM Reporting Lab: [facility] [address] [facility] [address] Performing Lab: [facility] [address] [facility] [address] MICROALBUMIN/C REATININE RATIO 9.4 mg/g 0-29.9 MICROALBUMIN,Q UANTITATIVE 2.0 mg/dL RR UNAVAIL CREATININE URINE 211.76 mg/dL Nov 08, 2023 12:07 PM [facility] MICROALBUMIN CREATININE RATIO PANEL Specimen Type: URINE No comment entered. Ordering Provider: RHYS TAN Report Released Date/Time: Nov 08, 2023 11:43 AM Reporting Lab: [facility] [address] [facility] [address] Performing Lab: [facility] [address] [facility] [address] MICROALBUMIN/C REATININE RATIO canc mg/g 0-29.9 MICROALBUMIN,Q UANTITATIVE < 0.5 mg/dL RR UNAVAIL CREATININE URINE 41.24 mg/dL Nov 07, 2023 03:36 PM [place] [facility] ESR(NEW) Specimen Type: BLOOD Comment: Tests performed on Alcor ISED(405) Ordering Provider: ANKIT FLORES Report Released Date/Time: Nov 07, 2023 03:20 PM Reporting Lab: [place] [facility] [address] [facility] [address] Performing Lab: [place] [facility] [address] [facility] [address] ESR(NEW) 13 mm/h 0-30 Nov 07, 2023 03:36 PM [facility] CRP(INFLAMMATORY) Specimen Type: PLASMA Comment: , Tests performed on MedShape SN:[id number] (405) Ordering Provider: ANKIT FLORES Report Released Date/Time: Nov 07, 2023 03:20 PM Reporting Lab: [facility] [address] [facility] [address] Performing Lab: [place] [address] [facility] [address] CRP(INFLAMMATO RY) 19.4 mg/L H 0.0-5.0 Nov 07, 2023 03:36 PM [facility] TSH Specimen Type: SERUM Comment: , Tests performed on MedShape SN:[id number] (405) TSH within normal limits. Reflex testing not required. Ordering Provider: ANKIT FLORES Report Released Date/Time: Nov 07, 2023 03:20 PM Reporting Lab: [facility] [address] [facility] [address] Performing Lab: [place] [facility] [address] [facility] [address] TSH 1.16 u[IU]/mL 0.35-5.00 Nov 07, 2023 03:36 PM [place] [facility] CBC NO DIFF Specimen Type: BLOOD No comment entered. Ordering Provider: ANKIT FLORES Report Released Date/Time: Nov 07, 2023 03:20 PM Reporting Lab: [place] [facility] [facility] [address] [facility] [address] Performing Lab: [facility] [address] [facility] [address] WBC 5.9 10*3/uL 4.5-11.0 RBC 4.22 10*6/uL 3.93-5.16 HGB 11.6 g/dL L 12-15.2 HEMATOCRIT 34.6 L 36.6-45.6 MCV 82.0 fL 82-99 MCH 27.5 pg 26.2-32.6 MCHC 33.5 g/dL 30.8-35.1 PLT 224 10*3/uL 140-360 MPV 9.8 fL 9.2-12.4 RDW 13.2 12.0-16.0 Nov 07, 2023 03:36 PM [facility] LIVER PROFILE Specimen Type: PLASMA Comment: , Tests performed on MedShape SN:[id number] (405) Ordering Provider: ANKIT FLORES Report Released Date/Time: Nov 07, 2023 03:20 PM Reporting Lab: [facility] [address] [facility] Performing Lab: [facility] [address] [place] [id number] PROTEIN, TOTAL 7.1 g/dL 6.0-8.5 ALBUMIN 4.1 g/dL 3.2-5.0 BILIRUBIN, TOTAL 0.3 mg/dL 0.2-1.2 ALKALINE PHOSPHATASE 74 U/L 40-150 ALT(SGPT) 22 U/L 7-52 AST(SGOT) 20 U/L 5-34 FIB-4 SCORE 1.10 <2.67 Nov 07, 2023 03:36 PM [facility] P4 GLU,BUN,CREAT,LYTES,CA Specimen Type: PLASMA Comment: , Tests performed on MedShape SN:[id number] (405) Ordering Provider: ANKIT FLORES Report Released Date/Time: Nov 07, 2023 03:20 PM Reporting Lab: [facility] [address] [facility] [address] Performing Lab: [facility] [address] [place] [phone] UREA NITROGEN 14 mg/dL 7-25 SODIUM 134 mmol/L L 135-145 POTASSIUM 4.6 mmol/L 3.5-5.0 CHLORIDE 102 mmol/L 100-110 CARBON DIOXIDE 24 mmol/L 20-30 ANION GAP 8 4-16 GLUCOSE 109 mg/dL H 65-100 CREATININE 1.21 mg/dL 0.50-1.50 CALCIUM 10.1 mg/dL 8.5-10.5 eGFR(CKD-EPI 2020) 52 L Nov 05, 2023 10:46 AM [place] TSH Specimen Type: SERUM No comment entered. Ordering Provider: ELMER RO Report Released Date/Time: Nov 02, 2023 09:03 AM Reporting Lab: [facility] [address] [facility] [facility] [address] Performing Lab: [address] [address] TSH 2.22 u[IU]/mL 0.35-5.00 Nov 05, 2023 10:46 AM [place] BASIC METABOLIC PANEL (fasting) Specime n Type: SERUM No comment entered. Ordering Provider: ELMER RO Report Released Date/Time: Nov 02, 2023 09:03 AM Reporting Lab: [address] [address] Performing Lab: [address] [address] UREA NITROGEN 16 mg/dL 7-25 GLUCOSE 113 mg/dL H 65-100 SODIUM 134 mmol/L L 135-145 POTASSIUM 4.8 mmol/L 3.5-5.0 CHLORIDE 103 mmol/L 100-110 CO2 24 meq/L 20-30 CREATININE, Serum 1.24 mg/dL 0.50-1.40 eGFR(CKD-EPI 2020) 50 mL/min L >60 Nov 05, 2023 10:46 AM [place] CBC AND DIFF (AUTO) Specimen Type: BLOOD No comment entered. Ordering Provider: ELMER RO Report Released Date/Time: Nov 02, 2023 09:03 AM Reporting Lab: [address] [address] Performing Lab: [address] [address] WBC 4.11 10*3/uL L 4.50-11.00 RBC 4.34 [...] 10*3/uL 0.00-0.00 Nov 05, 2023 10:46 AM [place] LIPID PANEL FASTING Specimen Type: SERUM No comment entered. Ordering Provider: ADIA BERMUDEZ Report Released Date/Time: Oct 29, 2023 05:02 PM Reporting Lab: [facility] [address] [facility] [facility] [address] Performing Lab: [facility] [address] [facility] [address] CHOLESTEROL 224 mg/dL H TRIGLYCERIDE 158 mg/dL H 0-150 LDL calculated 136 mg/dL H 0-129 CHOL/HDL 4.0 HDL CHOLESTEROL 56 mg/dL 40-60 Nov 05, 2023 10:46 AM [facility] GLUCOSE FASTING Specimen Type: SERUM No comment entered. Ordering Provider: RHYS TAN Report Released Date/Time: Oct 18, 2023 12:52 PM Reporting Lab: [address] [address] Performing Lab: [address] [address] GLUCOSE 115 mg/dL H 65-100 Nov 05, 2023 10:46 AM [facility] HEMOGLOBIN A1C PANEL Specimen Type: BLOOD Comment: Values obtained from A1C measurements can vary. For atypical A1C assays, a reported value of 7.0 could actually be between 6.72 and 7.28 if measured by a reference method. A reported value of 9.0 could actually be between 8.73 and 9.27. Ref: http://www.ngs p.org/CAPdata. asp Ordering Provider: HRYS TAN Report Released Date/Time: Oct 18, 2023 12:52 PM Reporting Lab: [address] [address] Performing Lab: [address] [address] HEMOGLOBIN A1C 5.9 H 4.0-5.6 Nov 05, 2023 10:46 AM [facility] LIVER FUNCTION Specimen Type: SERUM No comment entered. Ordering Provider: RHYS TAN Report Released Date/Time: Oct 18, 2023 12:52 PM Reporting Lab: [address] [address] Performing Lab: [address] [address] PROTEIN,TOTAL 7.0 g/dL 6.0-8.3 ALBUMIN 4.3 g/dL [...] 05, 2019 01:53 PM VA-TOBACCO NEVER USED [facility] May 26, 2016 02:32 PM LIFETIME NON-TOBACCO USER [facility] Radiology Reports: +/- 30 days of [...] the Encounter. The data comes from all [place] treatment facilities. Date/Time Radiology Report Provider Source Nov 16, 2023 10:34 AM KNEE 3 VIEWS (RIGHT): LILLIAN TRENT [id number] -1965 F Exm Date: NOV 16, 2023@10:34 Req Phys: ELMER RO F Pat Loc: CWM/SO/PACT EIGHT WH (Req'g Lo Img Loc: [facility] 1 Service: Unknown [place] [address] (Case [id number] COMPLETE) KNEE 3 VIEWS (RIGHT) (RAD Detailed) CPT:88100 Reason for Study: right knee pain and decreased rom, s/p fall Clinical History: h/o tkr Report Status: Verified Date Reported: NOV 16, 2023 Date Verified: NOV 16, 2023 Plaster Machine Operator E-Sig:/ES/LOLA NUNEZ JR Report: Study: AP weight-bearing [...] Primary Interpreting Staff: LOLA NUNEZ JR, Radiologist (Plaster Machine Operator) /EALOLA DIAZ JR [facility] Nov 16, 2023 10:07 AM [facility] ULTRASOUND: LILLIAN TRENT [id number] -1965 F Exm Date: NOV 16, 2023@10:07 Req Phys: ELMER RO Pat Loc: CWM/SO/PACT EIGHT WH (Req'g Lo Img Loc: ULTRASOUND Service: [place] [address] (Case [id number] COMPLETE) ULTRASOUND KIDNEYS (US Detailed) CPT:54485 Reason for Study: DROPPING IN GFR (Case [id number] COMPLETE) ULTRASOUND URINARY BLADDER (US Detailed) CPT:92410 Clinical History: Report Status: Verified Date Reported: NOV 16, 2023 Date Verified: NOV 16, 2023 Plaster Machine Operator E-Sig:/ES/LOLA NUNEZ JR Report: Study: Genitourinary ultrasound. [...] Primary Interpreting Staff: LOLA NUNEZ JR, Radiologist (Plaster Machine Operator) /LOLA RODRIGUEZ JR [facility] Encounter Notes: All associated encounter notes This section contains the clinical notes associated to the Encounter. Date/Time Encounter Note(s) Provider Source Nov 02, 2023 08:36 AM PRIMARY CARE SECUR E MESSAGING: LOCAL TITLE: PRIMARY CARE SECURE MESSAGING STANDARD TITLE: PRIMARY CARE SECURE MESSAGING DATE OF NOTE: NOV 02, 2023@08:36 ENTRY DATE: NOV 02, 2023@08:36:48 AUTHOR: MANOLO ECHOLS COSIGNER: URGENCY: STATUS: COMPLETED PRIMARY CARE SECURE MESSAGING Has ADDENDA ------Original Message -------- Sent: 11/01/2023 04:37 PM ET From: LILLIAN TRENT To: Yessy RO,_PRIMARYCARE_SPOPC Subject: Test:requesting labwork Hello there! I plan to attend the [facility] this , as Dr. Tan has ordered LFT's, FBS, and HA1C. I will start working with a terry cloth cutter hand (not [facility]) in two weeks. She was wondering if my PCP could order a fasting lipid panel, CBC (checking HCT/HGB), and the above tests. I look forward to hearing from you. If I don't hear from you, I may go to the lab on , instead of Sunday, so you have time to read and work on this request. Thanks so much for all you do! Lillian Trent [id number] /farhan/ DEL ECHOLS ADVANCED WAITSTAFF Signed: 11/02/2023 08:36 Receipt Acknowledged By: 11/02/2023 09:03 /farhan/ PEDRO GOMEZ RN REGISTERED NURSE for DYLAN LING 11/02/2023 ADDENDUM STATUS: COMPLETED Ordered. /farhan/ PEDRO GOMEZ RN REGISTERED NURSE Signed: 11/02/2023 09:04 MANOLO ECHOLS [facility]
--- OUTSIDE RECORDS SUMMARY | 2024-03-10 09:21 | XMS_ITS | Encounter Summary ---
Author Name [facility] [place] [facility] [place] Address [address] [place] [address] Care Team Providers Care Geological Manager Name Role Phone GARRETT GOOD Primary [...] CE ORGANIZ HMO Oct 06, 2018 [id number] MEREDITH KU NN PATIENT ANTHEM BCBS CT FEDERAL PREFERRED PROVIDER ORGANIZAT ION (PPO) BASIC FAMIL Y Jan 31, 2015 [id number] MEREDITH KU NN PATIENT ANTHEM BCBS OF CT (BLUECARD) HIGH DEDUCTIBL E HEALTH PLAN [facility]I [facility] SUP HDHP Oct 06, 2018 [id number] [phone] MEREDITH KU NN PATIENT BCBS [place] HIGH DEDUCTIBL E [facility] PLAN [facility] HDHP Oct 06, 2018 [id number] MEREDITH KU NN PATIENT BCBS OF [place] HIGH DEDUCTIBL E HEALTH PLAN CLINI [facility] SUPP HDHP Oct 06, [id number] DELUISITOLY NN PATIENT BCBS OF [place]FORMERLY [facility] CE ORGANIZ CLINI [facility] AND SUPPO RT Oct 06, [id number] DELUISITOLY NN PATIENT BCBS OF [facility] PREFERRED PROVIDER ORGANIZAT ION (PPO) BASIC FAMIL Y Jan 31, 2015 [id number] DELUISITOLY NN PATIENT [place] FEPRX PLAN PRESCRIPT ION BCBS FEP Jan 31, 2015 [id number] ELMIRALY NN PATIENT [place]ARK-F EP BCBS PRESCRIPT ION BCBS FEP PLAN Jan 31, 2015 [id number] ELMIRALY NN PATIENT EXPRESS SCRIPTS PRESCRIPT ION HMO Oct 06, 2018 L4TA [id number] DELUISITOLY NN PATIENT EXPRESS SCRIPTS PRESCRIPT ION [facility] RT Sep 19, 2018 L4TA [id number] DELUISITOLY NN PATIENT EXPRESS SCRIPTS ([id number]) PRESCRIPT ION [facility] Oct 06, 2018 L4TA [id number] DEHNEHLY NN PATIENT EXPRESS SCRIPTS ([id number]) PRESCRIPT ION L4TA Oct 06, 2018 L4TA [id number] DEHNEHLY NN PATIENT EXPRESS SCRIPTS ([id number]) PRESCRIPT ION L4TA HD Oct 06, 2018 L4TA [id number] DEHNTAMEKALY NN PATIENT EXPRESS SCRIPTS RX PRESCRIPT ION [facility] SUPPO RT Oct 06, 2018 L4TA [id number] DEHNEH,LY NN PATIENT [id number] [facility] CE ORGANIZ CLINI [facility]STINE AND SUPPO RT Oct 06, [id number] DELUISITOLY NN PATIENT [id number] [facility] CE [facility]GANIZ [facility]IN[facility] AND SUPPO RT Oct 06, [id number] DEHNEH,LY NN PATIENT G210 BCBSM ([facility]) [facility] CE ORGANIZ CLINI [facility] AND SUPPO RT Oct 06, 2018 [id number] DEHNEH,LY NN PATIENT G210 BCBS ([facility] SUPPO RT Oct 06, [id number] DEHNEH,LY NN PATIENT MEDICARE (WNR) MEDICARE () PART A Nov 19, 2006 PART A [id number] DEHNEH,LY NN PATIENT MEDICARE (WNR) MEDICARE () PART A Nov 19, 2006 PART A [id number] DEHNEH,LY NN PATIENT MEDICARE (WNR) MEDICARE () PART A Nov 19, 2006 PART A [id number] DEHNEH,LY NN PATIENT MEDICARE (WNR) MEDICARE ) PART A Nov 19, 2006 PART A [id number] DEHNEH,LY NN PATIENT MEDICARE (WNR) MEDICARE () PART B Nov 19, 2006 PART B [id number] DEHNEH,LY NN PATIENT MEDICARE (WNR) MEDICARE () PART A Nov 19, 2006 PART A [id number] DEHNEH,LY NN PATIENT MEDICARE (WNR) MEDICARE () PART A Nov 19, 2006 PART A [id number] DEHNEH,LY NN PATIENT MEDICARE (WNR) MEDICARE () PART A Nov 19, 2006 PART A [id number] DEHNEH,LY NN PATIENT MEDICARE (WNR) MEDICARE () PART B Nov 19, 2006 PART B [id number] DEHNEH,LY NN PATIENT Selected Encounter This section includes the information on record at [place] for the Encounter. Date/Time Encounter Type Encounter Description Reason Pro vider Source Nov 05, 2023 04:32 PM Outpatient Encounter ENDOCRINOLOGY IHE Encounter Template Text not used by [facility] Plan of Treatment: Future Appointments (+ 6 months) and Future Tests (+/- 45 days) The Plan of Treatment section includes future care activities for the [facility] [place] [facility] This section includes future appointments and future orders which are active, pending or scheduled. Future Appointments This section includes appointments that were scheduled to occur 6 months from the date of the Encounter, up to a maximum of 20 appointments. The data comes from all [facility]. Appointment Date/Time Appointment Type Appointme nt Facility Name Nov 07, 2023 02:15 PM AMBULATORY - MEDICINE [facility] Nov 08, 2023 11:00 AM AMBULATORY - MEDICINE [place] [facility] [place] [facility] Nov 09, 2023 01:30 PM AMBULATORY - MEDICINE [facility] Nov 15, 2023 11:00 AM AMBULATORY - REHAB [facility]ICIN [facility] Nov 16, 2023 10:30 AM AMBULATORY - NONE [place] [facility] [place] [facility] Nov 16, 2023 11:00 AM AMBULATORY - NONE [place] [facility] [place] [facility] Dec 04, 2023 12:00 PM AMBULATORY - MEDICINE [place] [facility] [place] [facility] Dec 27, 2023 09:30 AM AMBULATORY - MEDICINE [place] [facility] [place] [facility] Feb 05, 2024 09:30 AM AMBULATORY - MEDICINE [place] [facility] [place] [facility] Feb 22, 2024 01:00 PM AMBULATORY - MEDICINE [facility] Feb 25, 2024 01:00 PM AMBULATORY - MEDICINE [place] [facility] [place] [facility] Feb 25, 2024 03:00 PM AMBULATORY - PSYCHIATRY [facility] Mar 10, 2024 09:15 AM AMBULATORY - MEDICINE [place] [facility] [place] [facility] Mar 13, 2024 03:00 PM AMBULATORY - MEDICINE [place] [facility] [place] [facility] Apr 03, 2024 02:30 PM AMBULATORY PSYCHIATRY [facility] Active, Pending, and Scheduled Orders This section includes a listing of several types of active, pending, and scheduled orders, including clinic medications orders, diagnostic test orders, procedure orders and consult orders; where the start date of the order is 45 days before the date of the Encounter or 45 days after the date of theEncounter. The data comes from all [facility]. Test Date/Time Test Type Test Details Facility Name Nov 08, 2023 12:00 AM Laboratory - Chemistry Order CORTISOL (AM) BLOOD (SST[facility]SERUM[facility] Nov 08, 2023 12:00 AM Laboratory - Chemistry Order MICROALBUMIN CREATININE RATIO PANEL URINE (RANDOM) [facility] Nov 08, 2023 12:00 AM Laboratory - Chemistry Order DEXAMETHASONE (Q) BLOOD (RED-PLAIN) SERUM [facility] Nov 09, 2023 02:02 PM Consult Order [facility]-NEPHROLOGY Cons Slab [employer] REPUBLIC Dec 11, 2023 12:00 AM Laboratory - Chemistry Order OCCULT BLOOD FIT X1 SCREEN (MFP ONLY) STOOL FECES [facility] Lab Results: +/- 30 days [...] Range Comment Nov 09, 2023 02:05 PM [facility] MICROALBUMIN CREATININE RATIO PANEL Spe cimen Type: URINE No comment entered. Ordering Provider: ELMER RO Report Released Date/Time: Nov 09, 2023 02:02 PM Reporting Lab: [facility] [address] [facility] [address] Performing Lab: [facility] [address] [address] MICROALBUMIN/C REATININE RATIO 9.4 mg/g 0-29.9 MICROALBUMIN,Q UANTITATIVE 2.0 mg/dL RR UNAVAIL CREATININE URINE 211.76 mg/dL Nov 08, 2023 12:07 PM [facility] MICROALBUMIN CREATININE RATIO PANEL Specimen Type: URINE No comment entered. Ordering Provider: RHYS TAN Report Released Date/Time: Nov 08, 2023 11:43 AM Reporting Lab: [facility] [address] [facility] [address] Performing Lab: [facility] [address] [facility] [address] MICROALBUMIN/C REATININE RATIO canc mg/g 0-29.9 MICROALBUMIN,Q UANTITATIVE < 0.5 mg/dL RR UNAVAIL CREATININE URINE 41.24 mg/dL Nov 07, 2023 03:36 PM [place] [facility] ESR(NEW) Specimen Type: BLOOD Comment: Tests performed on [employer] ISED(405) Ordering Provider: ANKIT FLORES Report Released Date/Time: Nov 07, 2023 03:20 PM Reporting Lab: [facility] [address] [facility] [address] Performing Lab: [facility] [address] [facility] [address] ESR(NEW) 13 mm/h 0-30 Nov 07, 2023 03:36 PM [facility] TSH Specimen Type: SERUM Comment: , Tests performed on Tan [employer] [place] SN:[id number] (405) TSH within normal limits. Reflex testing not required. Ordering Provider: ANKIT FLORES Report Released Date/Time: Nov 07, 2023 03:20 PM Reporting Lab: [facility] [address] [facility] [address] Performing Lab: [facility] [address] [facility] [address] TSH 1.16 u[IU]/mL 0.35-5.00 Nov 07, 2023 03:36 PM [facility] CRP(INFLAMMATORY) Specimen Type: PLASMA Comment: , Tests performed on [employer] [place] SN:[id number] (405) Ordering Provider: ANKIT FLORES Report Released Date/Time: Nov 07, 2023 03:20 PM Reporting Lab: [facility] [address] [facility] [address] Performing Lab: [facility] [address] [facility] [address] CRP(INFLAMMATO RY) 19.4 mg/L H 0.0-5.0 Nov 07, 2023 03:36 PM [facility] Specimen Type: PLASMA Comment: , Tests performed on [employer] [place] SN:[id number] (405) Ordering Provider: ANKIT FLORES Report Released Date/Time: Nov 07, 2023 03:20 PM Reporting Lab: [facility] [address] [facility] [address] Performing Lab: [facility] [address] [facility] [address] PROTEIN, TOTAL 7.1 g/dL 6.0-8.5 ALBUMIN 4.1 g/dL 3.2-5.0 BILIRUBIN, TOTAL 0.3 mg/dL 0.2-1.2 ALKALINE PHOSPHATASE 74 U/L 40-150 ALT(SGPT) 22 U/L 7-52 AST(SGOT) 20 U/L 5-34 FIB-4 SCORE 1.10 <2.67 Nov 07, 2023 03:36 PM [facility] CBC NO DIFF Specimen Type: BLOOD No comment entered. Ordering Provider: ANKIT FLORES Report Released Date/Time: Nov 07, 2023 03:20 PM Reporting Lab: [facility] [address] [facility] [address] Performing Lab: [facility] [address] [place] [place] [phone] WBC 5.9 10*3/uL 4.5-11.0 RBC 4.22 10*6/uL 3.93-5.16 HGB 11.6 g/dL L 12-15.2 HEMATOCRIT 34.6 L 36.6-45.6 MCV 82.0 fL 82-99 MCH 27.5 pg 26.2-32.6 MCHC 33.5 g/dL 30.8-35.1 PLT 224 10*3/uL 140-360 MPV 9.8 fL 9.2-12.4 RDW 13.2 12.0-16.0 Nov 07, 2023 03:36 PM [facility] P4 GLU,BUN,CREAT,LYTES,CA Specimen Type: PLASMA Comment: , Tests performed on [employer] [place] SN:[id number] (405) Ordering Provider: ANKIT FLORES Report Released Date/Time: Nov 07, 2023 03:20 PM Reporting Lab: [facility] [address] [facility] [address] Performing Lab: [facility] [address] [place] [phone] UREA NITROGEN 14 mg/dL 7-25 SODIUM 134 mmol/L L 135-145 POTASSIUM 4.6 mmol/L 3.5-5.0 CHLORIDE 102 mmol/L 100-110 CARBON DIOXIDE 24 mmol/L 20-30 ANION GAP 8 4-16 GLUCOSE 109 mg/dL H 65-100 CREATININE 1.21 mg/dL 0.50-1.50 CALCIUM 10.1 mg/dL 8.5-10.5 eGFR(CKD-EPI 2020) 52 L Nov 05, 2023 10:46 AM [facility] TSH Specimen Type: SERUM No comment entered. Ordering Provider: ELMER RO Report Released Date/Time: Nov 02, 2023 09:03 AM Reporting Lab: [address] [address] Performing Lab: [address] [address] TSH 2.22 u[IU]/mL 0.35-5.00 Nov 05, 2023 10:46 AM [facility] BASIC METABOLIC PANEL (fasting) Specime n Type: SERUM No comment entered. Ordering Provider: ELMER RO Report Released Date/Time: Nov 02, 2023 09:03 AM Reporting Lab: [address] [address] Performing Lab: [address] [address] UREA NITROGEN 16 mg/dL 7-25 GLUCOSE 113 mg/dL H 65-100 SODIUM 134 mmol/L L 135-145 POTASSIUM 4.8 mmol/L 3.5-5.0 CHLORIDE 103 mmol/L 100-110 CO2 24 meq/L 20-30 CREATININE, Serum 1.24 mg/dL 0.50-1.40 eGFR(CKD-EPI 2020) 50 mL/min L >60 Nov 05, 2023 10:46 AM [facility] CBC AND DIFF (AUTO) Specimen Type: BLOOD No comment entered. Ordering Provider: ELMER RO Report Released Date/Time: Nov 02, 2023 09:03 AM Reporting Lab: [address] [address] Performing Lab: [address] [address] WBC 4.11 10*3/uL L 4.50-11.00 RBC 4.34 [...] 10*3/uL 0.00-0.00 Nov 05, 2023 10:46 AM [facility] LIPID PANEL FASTING Specimen Type: SERUM No comment entered. Ordering Provider: ADIA BERMUDEZ Report Released Date/Time: Oct 29, 2023 05:02 PM Reporting Lab: [facility] [address] [facility] [address] Performing Lab: [facility] [address] [facility] [address] CHOLESTEROL 224 mg/dL H TRIGLYCERIDE 158 mg/dL H 0-150 LDL calculated 136 mg/dL H 0-129 CHOL/HDL 4.0 HDL CHOLESTEROL 56 mg/dL 40-60 Nov 05, 2023 10:46 AM [facility] GLUCOSE FASTING Specimen Type: SERUM No comment entered. Ordering Provider: RHYS TAN Report Released Date/Time: Oct 18, 2023 12:52 PM Reporting Lab: [address] [address] Performing Lab: [address] [address] GLUCOSE 115 mg/dL H 65-100 Nov 05, 2023 10:46 AM [facility] HEMOGLOBIN A1C PANEL Specimen Type: BLOOD [...] Oct 18, 2023 12:52 PM Reporting Lab: [address] [address] Performing Lab: [address] [address] HEMOGLOBIN A1C 5.9 H 4.0-5.6 Nov 05, 2023 10:46 AM [facility] LIVER FUNCTION Specimen Type: SERUM No comment entered. Ordering Provider: RHYS TAN Report Released Date/Time: Oct 18, 2023 12:52 PM Reporting Lab: [address] [address] Performing Lab: [address] [address] PROTEIN,TOTAL 7.0 g/dL 6.0-8.3 ALBUMIN 4.3 g/dL [...] 11, 2022 02:50 PM VA-TOBACCO NEVER USED [facility] Tobacco Use History This section includes a history of the smoking, or tobacco-related health factors, that were collected on or before the date of the Encounter. The data comes from the [place] facility where the Encounter took place. Date/Time Smoking Status/Tobacco Use Comment F acility Dec 05, 2019 01:53 PM VA-TOBACCO NEVER USED [facility] May 26, 2016 02:32 PM LIFETIME NON-TOBACCO USER [facility] Radiology Reports: +/- 30 days of [...] the Encounter. The data comes from all [place] treatment facilities. Date/Time Radiology Report Provider Source Nov 16, 2023 10:34 AM KNEE 3 VIEWS (RIGHT): INDY KU [id number] -[id number] F Exm Date: NOV 16, 2023@10:34 Req Phys: ELMER RO F Pat Loc: CWM/SO/PACT EIGHT WH (Req'g Lo Img Loc: [facility] 1 Service: [place] [address] (Case [id number] COMPLETE) KNEE 3 VIEWS (RIGHT) (RAD Detailed) CPT:33611 Reason for Study: right knee pain and decreased rom, s/p fall Clinical History: h/o tkr Report Status: Verified Date Reported: NOV 16, 2023 Date Verified: NOV 16, 2023 Consumer Insight Analyst E-Sig:/ES/LOLA NUNEZ JR Report: Study: AP [...] Primary Interpreting Staff: LOLA NUNEZ JR, Radiologist (Consumer Insight Analyst) /EALOLA DIAZ JR [facility] Nov 16, 2023 10:07 AM KIDNEY [facility] BLADDER ULTRASOUND: INDY KU [id number] -[id number] F Exm Date: NOV 16, 2023@10:07 Req Phys: ELMER RO Pat Loc: CWM/SO/PACT EIGHT WH (Req'g Lo Img Loc: ULTRASOUND Service: [place] [address] (Case [id number] COMPLETE) ULTRASOUND KIDNEYS (US Detailed) CPT:70689 Reason for Study: DROPPING IN GFR (Case [id number] COMPLETE) ULTRASOUND URINARY BLADDER (US Detailed) CPT:11508 Clinical History: Report Status: Verified Date Reported: NOV 16, 2023 Date Verified: NOV 16, 2023 Consumer Insight Analyst E-Sig:/ES/LOLA NUNEZ JR Report: Study: Genitourinary ultrasound. [...] Primary Interpreting Staff: LOLA NUNEZ JR, Radiologist (Consumer Insight Analyst) /LOLA RODRIGUEZ JR [facility] Encounter Notes: All associated encounter notes This section contains the clinical notes associated to the Encounter. Date/Time Encounter Note(s) Provider Source Nov 05, 2023 04:32 PM LETTERS: LOCAL TITLE: PATIENT LETTER (B) STANDARD TITLE: LETTERS DATE OF NOTE: NOV 05, 2023@16:32 ENTRY DATE: NOV 05, 2023@16:32:28 AUTHOR: RHYS TAN COSIGNER: URGENCY: STATUS: COMPLETED Oct [place] [address] [place] [id number] Dear , Your recent test results are as follows: GLUCOSE 113 H mg/dL 65 - 100 11/05/2023 10:46 BLOOD !! HEMOGLOBIN A1C 5.9 H % 4.0 - 5.6 11/05/2023 10:46 SERUM GLUCOSE 115 H mg/dL 65 - 100 PROTEIN,TOTAL 7.0 g/dL 6.0 - 8.3 ALBUMIN 4.3 g/dL 3.5 - 5.0 ALK HARRY 75 U/L 40 - 150 AST 15 U/L 5 - 34 BILIRUBIN, TOTAL 0.4 mg/dL 0.2 - 1.2 ALT 16 U/L <6 - 55 Your blood sugar is borderline elevated. Your average blood sugar test (hemoglobin a1c) is mildly elevated. Your liver function blood tests are normal. Please call if you have any questions or concerns at [phone] option 2 option 4. Sincerely, MD DOMINICK Mead ALICE [facility]
--- OUTSIDE RECORDS SUMMARY | 2024-03-10 09:21 | XMS_ITS | Encounter Summary ---
Author Name [facility] [place] [facility] [place] Organization [facility] [place] Address [address] [place] [address] Care Team Providers Care Contract Law Specialist Name Role Phone GARRETT GOOD Primary [...] Boykin's Name Patient's Relationship to Policy [facility] Oct 06, 2018 [id number] [phone] MEREDITH KU NN PATIENT ANTHEM BCBS CT FEDERAL PREFERRED PROVIDER ORGANIZAT ION (PPO) BASIC FAMIL Y Jan 31, 2015 [id number] MEREDITH KU NN PATIENT ANTHEM BCBS OF CT (BLUECARD) HIGH DEDUCTIBL E HEALTH PLAN CLINI [facility] SUP HDHP Oct 06, 2018 [id number] [phone] MEREDITH KU NN PATIENT BCBS [place] HIGH DEDUCTIBL E HEALTH PLAN [facility]LAKE HDHP Oct 06, 2018 [id number] [phone] MEREDITH KU NN PATIENT BCBS OF [place] HIGH DEDUCTIBL E HEALTH PLAN CLINI [facility]STINE SUPP HDHP Oct 06, 2018 [id number] DELUISITOLY NN PATIENT [place] OF [place]/[facility] CE ORGANIZ CLINI [facility] AND SUPPO RT Oct 06, 2018 [id number] MEREDITH KU NN PATIENT BCBS OF [facility] PREFERRED PROVIDER ORGANIZAT ION (PPO) BASIC FAMIL Y Jan 31, 2015 [id number] DELUISITOLY NN PATIENT [place] FEPRX PLAN PRESCRIPT ION BCBS FEP Jan 31, 2015 [id number] MEREDITH KU NN PATIENT CAREMARK-F EP BCBS PRESCRIPT ION BCBS FEP PLAN Jan 31, 2015 [id number] ELMIRALY NN PATIENT EXPRESS SCRIPTS PRESCRIPT ION HMO Oct 06, 2018 L4TA [id number] DELUISITOLY NN PATIENT EXPRESS SCRIPTS PRESCRIPT ION [facility]PP[facility] RT Sep 19, 2018 L4TA [id number] DEHNTAMEKALY NN PATIENT EXPRESS SCRIPTS ([id number]) PRESCRIPT ION [facility] Oct 06, 2018 L4TA [id number] [phone] DEHNEH,LY NN PATIENT EXPRESS SCRIPTS ([id number]) PRESCRIPT ION L4TA Oct 06, 2018 L4TA [id number] DEHNEHLY NN PATIENT EXPRESS SCRIPTS ([id number]) PRESCRIPT ION L4TA HDHP Oct 06, 2018 L4TA [id number] DELUISITOLY NN PATIENT EXPRESS SCRIPTS RX PRESCRIPT ION [facility]PP[facility] RT Oct 06, 2018 L4TA [id number] DEHNEH,LY NN PATIENT [id number] [facility] CE ORGANIZ CLINI [facility] AND SUPPO RT Oct 06, 2018 [id number] DEHNTAMEKALY NN PATIENT [id number] [facility] CE ORGANIZ CLINI [facility] AND SUPPO RT Oct 06, 2018 [id number] DEHNEH,LY NN PATIENT G210 BCBS ([facility]) [facility] CE ORGANIZ CLINI [facility] AND SUPPO RT Oct 06, [id number] DEHNEH,LY NN PATIENT G210 BCBSM (PROFESSIO NAL) [facility] MAINTENAN CE ORGANIZ CLINI [facility]INE AND SUPPO RT Oct 06, [id number] DEHNEH,LY NN PATIENT MEDICARE (WN) MEDICARE ) PART A Nov 19, 2006 PART A [id number] DEHNEH,LY NN PATIENT MEDICARE (WN) MEDICARE ) PART A Nov 19, 2006 PART A [id number] DEHNEH,LY NN PATIENT MEDICARE (WN) MEDICARE ) PART A Nov 19, 2006 PART A [id number] DEHNEH,LY NN PATIENT MEDICARE (WN) MEDICARE ) PART B Nov 19, 2006 PART B [id number] DEHNEH,LY NN PATIENT MEDICARE (WN) MEDICARE ) PART A Nov 19, 2006 PART A [id number] DEHNEH,LY NN PATIENT MEDICARE (WN) MEDICARE ) PART A Nov 19, 2006 PART A [id number] [phone] DEHNEH,LY NN PATIENT MEDICARE ([facility]) MEDICARE ) PART A Nov 19, 2006 PART A [id number] DEHNEH,LY NN PATIENT MEDICARE (WN) MEDICARE ) PART A Nov 19, 2006 PART A [id number] DEHNEH,LY NN PATIENT MEDICARE (WN) MEDICARE ) PART B Nov 19, 2006 PART B [id number] DEHNEH,LY NN PATIENT Selected Encounter This section includes the information on record at [place] for the Encounter. Date/Time Encounter Type Encounter Description Reason Provider Source Nov 08, 2023 11:00 AM OFF/OP CONSLTJ NEW/EST HI 55 ENDOCRINOLOGY ICD-10-CM E66.9 Obesity, unspecified RHYS TAN Nav Encounter Template Text not used by [place] Assessments - Encounter Diagnoses This section includes the primary and secondary diagnoses documented for the Encounter. Date/Time Primary/Secondary Diagnosis Diagnosis Name Provider Source Nov 08, 2023 12:34 PM PRIMARY Obesity, unspecified RHYS TAN [place] [facility] [place] [facility] Nov 08, 2023 12:34 PM SECONDARY Essential (primary) hypertension LANSFORDRHYS [place] [facility] [place] [facility] Nov 08, 2023 12:34 PM SECONDARY Hyperlipidemia, unspecified TANRHYS [facility] [place] [facility] Nov 08, 2023 12:34 PM SECONDARY Type 2 diabetes mellitus without complications [place] [facility] [place] [facility] Plan of Treatment: Future Appointments (+ 6 months) and Future Tests (+/- 45 days) The Plan of Treatment section includes future care activities for the [facility] This section includes future appointments and future orders which are active, pending or scheduled. Future Appointments This section includes appointments that were scheduled to occur 6 months from the date of the Encounter, up to a maximum of 20 appointments. The data comes from all [place] treatment facilities. Appointment Date/Time Appointment Type Appointme nt Facility Name Nov 09, 2023 01:30 PM AMBULATORY - MEDICINE [facility] Nov 15, 2023 11:00 AM AMBULATORY - REHAB MEDICIN [facility] Nov 16, 2023 10:30 AM AMBULATORY - NONE [place] [facility] [place] [facility] Nov 16, 2023 11:00 AM AMBULATORY - NONE [place] [facility] [place] [facility] Dec 04, 2023 12:00 PM AMBULATORY - MEDICINE [place] [facility] [place] [facility] Dec 27, 2023 09:30 AM AMBULATORY - MEDICINE [place] [facility] [place] [facility] Feb 05, 2024 09:30 AM AMBULATORY - MEDICINE [place] [facility] [place] [facility] Feb 22, 2024 01:00 [facility] Feb 25, 2024 01:00 PM AMBULATORY - MEDICINE [place] [facility] [facility] Feb 25, 2024 03:00 PM AMBULATORY - PSYCHIATRY [facility] Mar 10, 2024 09:15 AM AMBULATORY - MEDICINE PR C NTRL [facility] Mar 13, 2024 03:00 PM AMBULATORY - MEDICINE [facility] NTRL [facility] Apr 03, 2024 02:30 PM AMBULATORY - PSYCHIATRY [facility] Active, Pending, and Scheduled Orders This section includes a listing of several types of active, pending, and scheduled orders, including clinic medications orders, diagnostic test orders, procedure orders and consult orders; where the start date of the order is 45 days before the date of the Encounter or 45 days after the date of theEncounter. The data comes from all [place] treatment facilities. Test Date/Time Test Type Test Details Facility Name Nov 08, 2023 12:00 AM Laboratory - Chemistry Order CORTISOL (AM) BLOOD (SST-SERUM) [facility] Nov 08, 2023 12:00 AM Laboratory - Chemistry Order MICROALBUMIN CREATININE RATIO PANEL URINE (RANDOM) [facility] Nov 08, 2023 12:00 AM Laboratory - Chemistry Order DEXAMETHASONE (Q) BLOOD (RED-PLAIN) SERUM [facility] Nov 09, 2023 02:02 PM Consult Order [facility]-NEPH[facility]Y Cons Supervisor Data Processing's Choice [facility] Dec 11, 2023 12:00 AM Laboratory - Chemistry Order OCCULT BLOOD FIT X1 SCREEN (MFP ONLY) STOOL [facility]EC[facility] Lab Results: +/- 30 days of the encounter This section includes the Chemistry and Hematology Lab Results on record with [place] for the patient. Radiology Reports and Pathology Reports are provided separately, in subsequent sections. Lab Results This section contains the Chemistry/Hematology Results that were resulted 30 days before or 30 daysafter the date of the Encounter. Date/Time Source Result Type Result - Unit Interpretation Reference Range Comment Nov 09, 2023 02:05 PM [facility] MICROALBUMIN CREATININE RATIO PANEL Spe cimen Type: URINE No comment entered. Ordering Provider: ELMER RO Report Released Date/Time: Nov 09, 2023 02:02 PM Reporting Lab: [address] [address] Performing Lab: [address] [address] MICROALBUMIN/C REATININE RATIO 9.4 mg/g 0-29.9 MICROALBUMIN,Q UANTITATIVE 2.0 mg/dL RR UNAVAIL CREATININE URINE 211.76 mg/dL Nov 08, 2023 12:07 PM [facility] MICROALBUMIN CREATININE RATIO PANEL Specimen Type: URINE No comment entered. Ordering Provider: RHYS TAN Report Released Date/Time: Nov 08, 2023 11:43 AM Reporting Lab: [facility] [address] [facility] [address] Performing Lab: [facility] [address] [facility] [address] MICROALBUMIN/C REATININE RATIO canc mg/g 0-29.9 MICROALBUMIN,Q UANTITATIVE < 0.5 mg/dL RR UNAVAIL CREATININE URINE 41.24 mg/dL Nov 07, 2023 03:36 PM [facility] CRP(INFLAMMATORY) Specimen Type: PLASMA Comment: , Tests performed on [employer] [place] SN:[id number] (405) Ordering Provider: ANKIT FLORES Report Released Date/Time: Nov 07, 2023 03:20 PM Reporting Lab: [facility] [address] [facility] [address] Performing Lab: [facility] [address] [facility] [address] CRP(INFLAMMATO RY) 19.4 mg/L H 0.0-5.0 Nov 07, 2023 03:36 PM [facility] ESR(NEW) Specimen Type: BLOOD Comment: Tests performed on [employer] ISED(405) Ordering Provider: ANKIT FLORES Report Released Date/Time: Nov 07, 2023 03:20 PM Reporting Lab: [facility] [address] [facility] [address] Performing Lab: [facility] [address] [facility] [address] ESR(NEW) 13 mm/h 0-30 Nov 07, 2023 03:36 PM [facility] TSH Specimen Type: SERUM Comment: , Tests performed on [employer] [place] SN:[id number] (405) TSH within normal limits. Reflex testing not required. Ordering Provider: ANKIT FLORES Report Released Date/Time: Nov 07, 2023 03:20 PM Reporting Lab: [facility] [address] [facility] [address] Performing Lab: [facility] [address] [facility] [address] TSH 1.16 u[IU]/mL 0.35-5.00 Nov 07, 2023 03:36 PM [facility] LIVER PROFILE Specimen Type: PLASMA Comment: , Tests performed on [employer] [place] SN:[id number] (312) Ordering Provider: ANKIT FLORES Report Released Date/Time: Nov 07, 2023 03:20 PM Reporting Lab: [facility] [address] [facility] [address] Performing Lab: [facility] [address] [place] [phone] PROTEIN, TOTAL 7.1 g/dL 6.0-8.5 ALBUMIN 4.1 g/dL 3.2-5.0 BILIRUBIN, TOTAL 0.3 mg/dL 0.2-1.2 ALKALINE PHOSPHATASE 74 U/L 40-150 ALT(SGPT) 22 U/L 7-52 AST(SGOT) 20 U/L 5-34 FIB-4 SCORE 1.10 <2.67 Nov 07, 2023 03:36 PM [facility] CBC NO DIFF Specimen Type: BLOOD No comment entered. Ordering Provider: ANKIT FLORES Report Released Date/Time: Nov 07, 2023 03:20 PM Reporting Lab: [facility] [address] [facility] [address] Performing Lab: [facility] [address] [facility] [address] WBC 5.9 10*3/uL 4.5-11.0 RBC 4.22 10*6/uL 3.93-5.16 HGB 11.6 g/dL L 12-15.2 HEMATOCRIT 34.6 L 36.6-45.6 MCV 82.0 fL 82-99 MCH 27.5 pg 26.2-32.6 MCHC 33.5 g/dL 30.8-35.1 PLT 224 10*3/uL 140-360 MPV 9.8 fL 9.2-12.4 RDW 13.2 12.0-16.0 Nov 07, 2023 03:36 PM [facility] P4 GLU,BUN,CREAT,LYTES,CA Specimen Type: PLASMA Comment: , Tests performed on [employer] [place] SN:[id number] (968) Ordering Provider: ANKIT FLORES Report Released Date/Time: Nov 07, 2023 03:20 PM Reporting [facility] [address] [facility] [address] Performing [facility]: [facility] [address] [facility] [address] UREA NITROGEN 14 mg/dL 7-25 SODIUM 134 mmol/L L 135-145 POTASSIUM 4.6 mmol/L 3.5-5.0 CHLORIDE 102 mmol/L 100-110 CARBON DIOXIDE 24 mmol/L 20-30 ANION GAP 8 4-16 GLUCOSE 109 mg/dL H 65-100 CREATININE 1.21 mg/dL 0.50-1.50 CALCIUM 10.1 mg/dL 8.5-10.5 eGFR(CKD-EPI 2020) 52 L Nov 05, 2023 10:46 AM [facility] TSH Specimen Type: SERUM No comment entered. Ordering Provider: ELMER RO Report Released Date/Time: Nov 02, 2023 09:03 AM Reporting Lab: [facility] [employer] [facility] [address] [facility] [address] Performing [facility]: [facility] [address] [facility] [address] TSH 2.22 u[IU]/mL 0.35-5.00 Nov 05, 2023 10:46 AM [facility] BASIC METABOLIC PANEL (fasting) Specime n Type: SERUM No comment entered. Ordering Provider: ELMER RO Report Released Date/Time: Nov 02, 2023 09:03 AM Reporting Lab: [place] [employer] [address] [facility] [address] Performing Lab: [place] [facility] [address] [facility] [address] UREA NITROGEN 16 mg/dL 7-25 GLUCOSE 113 mg/dL H 65-100 SODIUM 134 mmol/L L 135-145 POTASSIUM 4.8 mmol/L 3.5-5.0 CHLORIDE 103 mmol/L 100-110 CO2 24 meq/L 20-30 CREATININE, Serum 1.24 mg/dL 0.50-1.40 eGFR(CKD-EPI 2020) 50 mL/min L >60 Nov 05, 2023 10:46 AM [facility] CBC AND DIFF (AUTO) Specimen Type: BLOOD No comment entered. Ordering Provider: ELMER RO Report Released Date/Time: Nov 02, 2023 09:03 AM Reporting Lab: [address] [address] Performing Lab: [address] [address] WBC 4.11 10*3/uL L 4.50-11.00 RBC 4.34 [...] 10*3/uL 0.00-0.00 Nov 05, 2023 10:46 AM [facility] LIPID PANEL FASTING Specimen Type: SERUM No comment entered. Ordering Provider: ADIA BERMUDEZ Report Released Date/Time: Oct 29, 2023 05:02 PM Reporting Lab: [facility] [address] [facility] [address] Performing Lab: [facility] [address] [facility] [address] CHOLESTEROL 224 mg/dL H TRIGLYCERIDE 158 mg/dL H 0-150 LDL calculated 136 mg/dL H 0-129 CHOL/HDL 4.0 HDL CHOLESTEROL 56 mg/dL 40-60 Nov 05, 2023 10:46 AM [facility] GLUCOSE FASTING Specimen Type: SERUM No comment entered. Ordering Provider: RHYS TAN Report Released Date/Time: Oct 18, 2023 12:52 PM Reporting Lab: [facility] [address] [facility] [address] Performing Lab: [address] [address] GLUCOSE 115 mg/dL H 65-100 Nov 05, 2023 10:46 AM [facility] HEMOGLOBIN A1C PANEL Specimen Type: [...] Oct 18, 2023 12:52 PM Reporting Lab: [facility] [address] [facility] [address] Performing Lab: [facility] [address] [facility] [address] HEMOGLOBIN A1C 5.9 H 4.0-5.6 Nov 05, 2023 10:46 AM [facility] LIVER FUNCTION Specimen Type: SERUM No comment entered. Ordering Provider: RHYS TAN Report Released Date/Time: Oct 18, 2023 12:52 PM Reporting Lab: [address] [address] Performing Lab: [facility] [address] [facility] [address] PROTEIN,TOTAL 7.0 g/dL 6.0-8.3 ALBUMIN 4.3 g/dL [...] Height Weight Body Mass Index Source Nov 08, 2023 11:12 AM 97.9 74 137/77 16 98 7 239 41 [facility] Social History: Smoking Status (Most current) and Tobacco Use (All prior to encounter date) This section includes the most current, and the historical, smoking and tobacco- related health factors from the PR facility where the Encounter took place. Current Smoking Status This section includes the most current smoking, or tobacco-related health factor, from the PR facility where the Encounter took place. Date/Time Current Smoking Status Comment Facil ity Aug 11, 2022 02:50 PM VA-TOBACCO NEVER USED [facility] Tobacco Use History This section includes a history of the smoking, or tobacco-related health factors, that were collected on or before the date of the Encounter. The data comes from the PR facility where the Encounter took place. Date/Time Smoking Status/Tobacco Use Comment F acility Dec 05, 2019 01:53 PM VA-TOBACCO NEVER USED [facility] May 26, 2016 02:32 PM LIFETIME NON-TOBACCO USER [facility] Radiology Reports: +/- 30 days [...] the Encounter. The data comes from all [place] treatment facilities. Date/Time Radiology Report Provider Source Nov 16, 2023 10:34 AM KNEE 3 VIEWS (RIGHT): INDY KU [id number] -[id number] F Exm Date: NOV 16, 2023@10:34 Req Phys: STELEA,ELMER F Pat Loc: CWM/SO/PACT EIGHT WH (Req'g Lo Img Loc: [facility]/BUILDING 1 Service: [place] [address] (Case [id number] COMPLETE) KNEE 3 VIEWS (RIGHT) (RAD Detailed) CPT:51892 Reason for Study: right knee pain and decreased rom, s/p fall Clinical History: h/o tkr Report Status: Verified Date Reported: NOV 16, 2023 Date Verified: NOV 16, 2023 Parts Cleaner E-Sig:/ES/LOLA NUNEZ JR Report: Study: AP weight-bearing [...] Primary Interpreting Staff: LOLA NUNEZ JR, Radiologist (Parts Cleaner) /EALOLA DIAZ JR [facility] Nov 16, 2023 10:07 AM KIDNEY AND BLADDER ULTRASOUND: INDY KU [id number] -[id number] F Exm Date: NOV 16, 2023@10:07 Req Phys: STELEA,ELMER F Pat Loc: CWM/SO/PACT EIGHT WH (Req'g Lo Img Loc: ULTRASOUND Service: Unknown [place], [place] (Case [id number] COMPLETE) ULTRASOUND KIDNEYS (US Detailed) CPT:58534 Reason for Study: DROPPING IN GFR (Case [id number] COMPLETE) ULTRASOUND URINARY BLADDER (US Detailed) CPT:36865 Clinical History: Report Status: Verified Date Reported: NOV 16, 2023 Date Verified: NOV 16, 2023 Parts Cleaner E-Sig:/ES/LOLA NUNEZ JR Report: Study: Genitourinary ultrasound. [...] Primary Interpreting Staff: LOLA NUNEZ JR, Radiologist (Kevin) /LOLA RODRIGUEZ JR [facility] Encounter Notes: All associated encounter notes This section contains the clinical notes associated to the Encounter. Date/Time Encounter Note(s) Provider Source Nov 08, 2023 07:59 AM ENDOCRINOLOGY CONSULT: LOCAL TITLE: CONSULT REPORT/ENDOCRINE STANDARD TITLE: ENDOCRINOLOGY CONSULT DATE OF NOTE: NOV 08, 2023@07:59 ENTRY DATE: NOV 08, 2023@08:00:03 AUTHOR: RHYS TAN COSIGNER: URGENCY: STATUS: COMPLETED CC: Obesity Diabetes mellitus type 2, HTN Hyperlipidemia HPI: Reason for request: PT wishes to work w/ endocrine on weight loss thank you Pt with type 2 diabetes mellitus dx after GDM 26 years ago. Quetiapine is a contributor to obesity. Current weight 252 lbs BMI 43.65. She states, after researching, she is not desiring weight loss medication. She has lost 15 lbs in the past few weeks. She does have binge eating disorder. She is working with a auto phone installer, and describes currently a very healthy diet. She has a diagnosis of stage 3 renal disease of undertain origin in the past, current gfr 50 Hx depression. No change in features, No supraclavicular fat pads, no striae or proximal muscle weakness No recent microalb GFR 50 Last eye exam 12/2022, no DR No CAD All recent endocrine labs were reviewed with the patient. Nov 04 Oct 17 Feb 10 Feb 10 Reference 2023 2021 2020 2020 10:46 11:35 10:31 10:31 TSH 2.22 2.48 2.72 uIU/mL .35 - 5 FT4 0.93 ng/dL .6 - 1.6 Nov 04 Aug 04 Oct 17 Feb 10 Reference 2023 2022 2021 2020 CHOL 224 H 236 H 237 H 240 H mg/dL <7 - 199 TRIG 158 H 164 H 255 H 319 H mg/dL 0 - 150 HDL 56 58 55 51 mg/dL 40 - 60 LDL 136 H 145 H 131 H Reflex to dLDL mg/dL < 70 Active problems - Computerized Problem List is the source for the followin. Dissociative disorder 2. External haemorrhoids 3. Diabetes Mellitus Type 2 (SCT 88124497) 4. Hyperlipidemia (SCT 33764463) 5. Anemia (RUST [id number]) 6. Venous thrombosis 7. Recurrent genital herpes simplex 8. Connective tissue disease 9. Osteoarthritis 10. Binge eating disorder 11. Tendinitis 12. Type II diabetes mellitus 13. Cholelithiasis 14. Myalgia * 15. Laparoscopy, Surgical, Appendectomy 16. Calcifying tendinitis of shoulder 17. Tendinitis * 18. Screening Mammogram for Malignant Neoplasms of the Breast, other 19. Recurrent major depression (SNOMED CT 74172352) 20. Attention-Deficit/Hyperactivity Disorder NOS 21. Obesity (SNOMED CT 241991404) 22. Chronic post-traumatic stress disorder (SNOMED CT 214923159) 23. Fracture 24. Mastodynia * 25. ACCRETIONS ON TEETH 26. UNSPECIFIED DENTAL CARIES 27. Hysterectomy 28. Diabetes Mellitus Type II or unspecified 29. Hypercholesterolemia 30. Other and unspecified ovarian cyst 31. Temporomandibular Joint Syndrome 32. Complete External Hemorrhoidectomy 33. Asthma 34. HTN 35. Anemia Active Outpatient Medications (including Supplies): Active Outpatient Medications Status 1) ACCU-CHEK GUIDE (GLUCOSE) TEST STRIP USE [...] TAKE ONE TABLET BY MOUTH TWICE ACTIVE (S) takes occasionally DAILY FOR PAIN TAKE WITH FOOD 8) QUETIAPINE FUMARATE 25MG TAB TAKE ONE TABLET BY MOUTH HOLD AT BEDTIME NEEDED FOR BIPOLAR DEPRESSION FOR ANXIETY. YOU MAY TAKE UP TO THREE ADDITIONAL TABLETS AT BEDTIME IF NEEDED. 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 No striae, no cushinoid features no striae no proximal muscle weakness feet no lesions normal pulses no lesions A/P: Active problems - Computerized Problem List is the source for the following: Obesity She took Phentermine in high school due to eating disorder (by a clinician who was amita . She is concerned to consider using this in the future. We did discuss CFU for Amena. She is seein a auto phone installer weekly. She declines MOVE due to MST. Telemove would not be an issue from this. She has MOVE materials. She is well informed about nutrition. She is informed about Kcal counting, but this has fed into her BED. She has a personal goal for 20 lb weight loss in next year. She may have chronic cortisol excess from trauma. However, Mcrae Helena's syndrome could cause depression, elevated bg, and obesity 3. Diabetes Mellitus Type 2 With lower GFR, I suggest adding empagliflozin, discussed benefits and harms. Hx UTI sx twice a year, treats only with hydration, no hx yeast infections. HTN discussed targets and rationale. PTSD causes elevated bp in clinic. She reports sbp 125 at home. Ordered newer cuff as hers is old. Discussed lisinopril benefits and harms, suggested Hyperlipidemia reports severe ADR to simvastatin, declines. Motivated for weight loss. after hemorrhoid surgery because she sees that her BED led to the need for this surgery. Three months FTF Diabetes: Kidney Health Evaluation: Last eGFR: EGFR Collection DT Specimen Test Name Result Units Ref Range 11/05/2023 10:46 SERUM eGFR(CKD-EPI 2020 50 L mL/min Ref: >=60 Last uACR: No uACR found within the past year uACR (Urine Albumin-Creatinine Ratio) Quantitative urine creatinine and quantitative urine albumin lab tests were ordered. PAVE Foot Check: A complete foot check was completed at this encounter. VISUAL INSPECTION: Includes inspection for skin breaks, deformity, erythema, trauma, pallor on elevation, dependent rubor, nail deformities, extensive callus and pitting edema. Visual exam results: Normal PEDAL PULSES: Includes palpation of dorsalis and posterior tibial pulses and signs/symptoms of vascular compromise like pain, pallor, parasthesia or paralysis. Present (even if diminished) SENSORY CHECK: Includes 10 gram Monofilament ([place]-Tito) test of sensation. Intact (Greater than or equal to 80% of sites checked) Abnormal (Less than 80% of sites checked): Intact LOW-RISK: LOW RISK INFORMATION PROVIDED: 1. Advised patient not to walk barefoot. 2. Explained the importance of daily foot checks for changes. 3. Stressed the importance of daily foot hygiene, including bathing and complete drying. The patient verbalized understanding and was offered a detailed handout on diabetic foot care. (Optional) Whole Health Documentation: What matters the most to you? What motivates you to be healthy? (MAP) Response: being healthy to take care of dtr who is blind Medication Reconciliation: Outpatient: Has the patient been taking medications as documented in the EMLR? No: Discrepencies were identified. See below. Essential Medication List for Review used to complete this medication reconciliation. INCLUDED IN THIS LIST: Alphabetical list of active outpatient prescriptions dispensed from this [place] (local) and dispensed from another [place] or [facility] facility (remote) as well as inpatient orders (local, pending and active), local clinic medications, locally documented non-VA medications, and local prescriptions that have or been discontinued in the past 90 days. - Discrepancies were identified, addressed, and discussed with the patient/caregiver at this encounter. - All changes in medications, including all non-VA/Herbal/OTC medications were entered into CPRS. - If there were any medications the patient should no longer take, they were discontinued. - The patient/caregiver was instructed to update this list, discard old lists, and take this list to the next appointment, whether with a VA or non-VA provider. /farhan/ RHYS TAN MD STAFF PHYSICIAN Signed: 11/08/2023 12:32 RHYS TAN CNTRL [facility]
--- OUTSIDE RECORDS SUMMARY | 2024-03-10 09:21 | XMS_ITS | Encounter Summary ---
Author Name [facility] [place] [facility] [place] Address [address] [place] [address] Care Team Providers Care Fast Food Shift Supervisor Name Role Phone GARRETT GOOD Primary [...] CE ORGANIZ HMO Oct 06, 2018 [id number] [phone] MEREDITH KU NN PATIENT ANTHEM BCBS CT FEDERAL PREFERRED PROVIDER ORGANIZAT ION (PPO) BASIC FAMIL Y Jan 31, 2015 [id number] [phone] MEREDITH KU NN PATIENT ANTHEM BCBS OF CT (BLUECARD) HIGH DEDUCTIBL E HEALTH PLAN CLINI [facility] SUP HDHP Oct 06, 2018 [id number] MEREDITH KU NN PATIENT BCBS [place] HIGH DEDUCTIBL E HEALTH PLAN CLINI [facility] [place] HDHP Oct 06, 2018 [id number] MEREDITH KU NN PATIENT BCBS OF [place] HIGH DEDUCTIBL E HEALTH PLAN CLINI CHRISTINE SUPP HDHP Oct 06, [id number] DELUISITOLY NN PATIENT BCBS OF [place] CE ORGANIZ CLINI [facility]STINE AND SUPPO RT Oct 06, [id number] [phone] DELUISITOLY NN PATIENT BCBS OF [facility] PREFERRED PROVIDER ORGANIZAT ION (PPO) BASIC FAMIL Y Jan 31, 2015 [id number] DELUISITOLY NN PATIENT [place] FEPRX PLAN PRESCRIPT ION BCBS FEP Jan 31, 2015 [id number] ELMIRALY NN PATIENT [place]-F EP BCBS PRESCRIPT ION BCBS FEP PLAN Jan 31, 2015 [id number] ELMIRALY NN PATIENT EXPRESS SCRIPTS PRESCRIPT ION HMO Oct 06, 2018 L4TA [id number] DELUISITOLY NN PATIENT EXPRESS SCRIPTS PRESCRIPT ION [facility]PPO RT Sep 19, 2018 L4TA [id number] DELUISITOLY NN PATIENT EXPRESS SCRIPTS ([id number]) PRESCRIPT ION [facility] Oct 06, 2018 L4TA [id number] DEHNEHLY NN PATIENT EXPRESS SCRIPTS ([id number]) PRESCRIPT ION L4TA Oct 06, 2018 L4TA [id number] DEHNEHLY NN PATIENT EXPRESS SCRIPTS ([id number]) PRESCRIPT ION L4TA HD Oct 06, 2018 L4TA [id number] DEHNTAMEKALY NN PATIENT EXPRESS SCRIPTS RX PRESCRIPT ION CLINI [facility] SUPPO RT Oct 06, 2018 L4TA [id number] DEHNEH,LY NN PATIENT [id number] [facility]LY [facility], [facility] CE ORGANIZ CLINI [facility]INE AND SUPPO RT Oct 06, [id number] DELUISITOLY NN PATIENT [id number] [facility] CE ORGANIZ CLINI CHRISTINE AND SUPPO RT Oct 06, [id number] DEHNEH,LY NN PATIENT G210 BCBSM ([facility]) [facility] CE ORGANIZ CLINI CHRISTINE AND SUPPO RT Oct 06, 2018 [id number] DEHNEH,LY NN PATIENT G210 BCBS ([facility] SUPPO RT Oct 06, [id number] DEHNEH,LY NN PATIENT MEDICARE (WNR) MEDICARE () PART A Nov 19, 2006 PART A [id number] DEHNEH,LY NN PATIENT MEDICARE (WNR) MEDICARE () PART A Nov 19, 2006 PART A [id number] DEHNEH,LY NN PATIENT MEDICARE (WNR) MEDICARE () PART A Nov 19, 2006 PART A [id number] DEHNEH,LY NN PATIENT MEDICARE (WNR) MEDICARE () PART B Nov 19, 2006 PART B [id number] DEHNEH,LY NN PATIENT MEDICARE (WNR) MEDICARE () PART A Nov 19, 2006 PART A [id number] DEHNEH,LY NN PATIENT MEDICARE (WNR) MEDICARE () PART A Nov 19, 2006 PART A [id number] DEHNEH,LY NN PATIENT MEDICARE (WNR) MEDICARE () PART A Nov 19, 2006 PART A [id number] DEHNEH,LY NN PATIENT MEDICARE (WNR) MEDICARE () PART A Nov 19, 2006 PART A [id number] DEHNEH,LY NN PATIENT MEDICARE (WNR) MEDICARE () PART B Nov 19, 2006 PART B [id number] [phone] DEHNEH,LY NN PATIENT Selected Encounter This section includes the information on record at [place] for the Encounter. Date/Time Encounter Type Encounter Description Reason Pro vider Source Nov 08, 2023 06:43 PM Outpatient Encounter ENDOCRINOLOGY RHYS TAN Encounter Template Text not used by VA Plan of Treatment: Future Appointments (+ 6 months) and Future Tests (+/- 45 days) The Plan of Treatment section includes future care activities for the patient from all [place] [facility] This section includes future appointments and future orders which are active, pending or scheduled. Future Appointments This section includes appointments that were scheduled to occur 6 months from the date of the Encounter, up to a maximum of 20 appointments. The data comes from all [facility]. Appointment Date/Time Appointment Type Appointme nt Facility Name Nov 09, 2023 01:30 PM AMBULATORY - MEDICINE [facility] Nov 15, 2023 11:00 AM AMBULATORY - REHAB MEDICIN [facility] Nov 16, 2023 10:30 AM AMBULATORY - NONE [place] [facility] Nov 16, 2023 11:00 AM AMBULATORY - NONE [place] [facility] [place] [facility] Dec 04, 2023 12:00 PM AMBULATORY - MEDICINE [facility] C [facility] [facility] Dec 27, 2023 09:30 AM AMBULATORY - MEDICINE [facility] C [facility] Feb 05, 2024 09:30 AM AMBULATORY - MEDICINE [facility] C [facility] Feb 22, 2024 01:00 PM AMBULATORY - MEDICINE [facility] Feb 25, 2024 01:00 PM AMBULATORY - MEDICINE [place] [facility] [facility] Feb 25, 2024 03:00 PM AMBULATORY - PSYCHIATRY [facility] Mar 10, 2024 09:15 AM AMBULATORY - MEDICINE [facility] C [facility] Mar 13, 2024 03:00 PM AMBULATORY - MEDICINE [place] C [facility] Apr 03, 2024 02:30 PM AMBULATORY - PSYCHIATRY [facility] Active, Pending, and Scheduled Orders This section includes a listing of several types of active, pending, and scheduled orders, including clinic medications orders, diagnostic test orders, procedure orders and consult orders; where the start date of the order is 45 days before the date of the Encounter or 45 days after the date of theEncounter. The data comes from all [facility]. Test Date/Time Test Type Test Details Facility Name Nov 08, 2023 12:00 AM Laboratory - Chemistry Order MICROALBUMIN CREATININE RATIO PANEL URINE (RANDOM) [facility] [place] [facility] Nov 08, 2023 12:00 AM Laboratory - Chemistry Order CORTISOL (AM) BLOOD (SST-SERUM) [facility] EN[facility]PRIS[facility]RN [facility] Nov 08, 2023 12:00 AM Laboratory - Chemistry Order DEXAMETHASONE (Q) BLOOD (RED-PLAIN) SERUM [facility] Nov 09, 2023 02:02 PM Consult Order [facility]-NEPHROLOGY Cons [place] Worker[facility] Dec 11, 2023 12:00 AM Laboratory - Chemistry Order OCCULT BLOOD FIT X1 SCREEN (MFP ONLY) STOOL FECES SP [place] Lab Results: +/- 30 days of the encounter This section includes the Chemistry and Hematology Lab Results on record with [place] for the patient. Radiology Reports and Pathology Reports are provided separately, in subsequent sections. Lab Results This section contains the Chemistry/Hematology Results that were resulted 30 days before or 30 daysafter the date of the Encounter. Date/Time Source Result Type Result - Unit Interpretation Reference Range Comment Nov 09, 2023 02:05 PM [facility] MICROALBUMIN CREATININE RATIO PANEL Spe cimen Type: URINE No comment entered. Ordering Provider: ELMER RO Report Released Date/Time: Nov 09, 2023 02:02 PM Reporting Lab: [address] [address] Performing Lab: [address] [address] MICROALBUMIN/C REATININE RATIO 9.4 mg/g 0-29.9 MICROALBUMIN,Q UANTITATIVE 2.0 mg/dL RR UNAVAIL CREATININE URINE 211.76 mg/dL Nov 08, 2023 12:07 PM [facility] MICROALBUMIN CREATININE RATIO PANEL Specimen Type: URINE No comment entered. Ordering Provider: RHYS TAN Report Released Date/Time: Nov 08, 2023 11:43 AM Reporting Lab: [address] [address] Performing Lab: [address] [address] MICROALBUMIN/C REATININE RATIO canc mg/g 0-29.9 MICROALBUMIN,Q UANTITATIVE < 0.5 mg/dL RR UNAVAIL CREATININE URINE 41.24 mg/dL Nov 07, 2023 03:36 PM [facility] TSH Specimen Type: SERUM Comment: , Tests performed on [employer] [place] SN:[id number] (405) TSH within normal limits. Reflex testing not required. Ordering Provider: ANKIT FLORES Report Released Date/Time: Nov 07, 2023 03:20 PM Reporting Lab: [place] [facility] [address] [address] Performing Lab: [facility] [address] [address] TSH 1.16 u[IU]/mL 0.35-5.00 Nov 07, 2023 03:[address] [facility] ESR(NEW) Specimen Type: BLOOD Comment: Tests performed on [employer] ISED(405) Ordering Provider: ANKIT FLORES Report Released Date/Time: Nov 07, 2023 03:20 PM Reporting Lab: [facility] [address] [address] Performing Lab: [facility] [address] [address] ESR(NEW) 13 mm/h 0-30 Nov 07, 2023 03:36 PM [facility] CRP(INFLAMMATORY) Specimen Type: PLASMA Comment: , Tests performed on [employer] [place] SN:[id number] (405) Ordering Provider: ANKIT FLORES Report Released Date/Time: Nov 07, 2023 03:20 PM Reporting Lab: [facility] [address] [address] Performing Lab: [facility] [address] [address] CRP(INFLAMMATO RY) 19.4 mg/L H 0.0-5.0 Nov 07, 2023 03:36 PM [facility] LIVER PROFILE Specimen Type: PLASMA Comment: , Tests performed on [employer] [place] SN:[id number] (405) Ordering Provider: ANKIT FLORES Report Released Date/Time: Nov 07, 2023 03:20 PM Reporting Lab: [facility] [address] [address] Performing Lab: [facility] [address] [address] PROTEIN, TOTAL 7.1 g/dL 6.0-8.5 ALBUMIN 4.1 g/dL 3.2-5.0 BILIRUBIN, TOTAL 0.3 mg/dL 0.2-1.2 ALKALINE PHOSPHATASE 74 U/L 40-150 ALT(SGPT) 22 U/L 7-52 AST(SGOT) 20 U/L 5-34 FIB-4 SCORE 1.10 <2.67 Nov 07, 2023 03:36 PM [facility] CBC NO DIFF Specimen Type: BLOOD No comment entered. Ordering Provider: ANKIT FLORES Report Released Date/Time: Nov 07, 2023 03:20 PM Reporting Lab: [facility] [address] [address] Performing Lab: [facility] [address] [address] WBC 5.9 10*3/uL 4.5-11.0 RBC 4.22 10*6/uL 3.93-5.16 HGB 11.6 g/dL L 12-15.2 HEMATOCRIT 34.6 L 36.6-45.6 MCV 82.0 fL 82-99 MCH 27.5 pg 26.2-32.6 MCHC 33.5 g/dL 30.8-35.1 PLT 224 10*3/uL 140-360 MPV 9.8 fL 9.2-12.4 RDW 13.2 12.0-16.0 Nov 07, 2023 03:36 PM [facility] P4 GLU,BUN,CREAT,LYTES,CA Specimen Type: PLASMA Comment: , Tests performed on [employer] [place] SN:[id number] (411) Ordering Provider: ANKIT FLORES Report Released Date/Time: Nov 07, 2023 03:20 PM Reporting Lab: [facility] [address] [address] Performing Lab: [facility] [address] [address] UREA NITROGEN 14 mg/dL 7-25 SODIUM 134 mmol/L L 135-145 POTASSIUM 4.6 mmol/L 3.5-5.0 CHLORIDE 102 mmol/L 100-110 CARBON DIOXIDE 24 mmol/L 20-30 ANION GAP 8 4-16 GLUCOSE 109 mg/dL H 65-100 CREATININE 1.21 mg/dL 0.50-1.50 CALCIUM 10.1 mg/dL 8.5-10.5 eGFR(CKD-EPI 2020) 52 L Nov 05, 2023 10:46 AM [facility] TSH Specimen Type: SERUM No comment entered. Ordering Provider: ELMER RO Report Released Date/Time: Nov 02, 2023 09:03 AM Reporting Lab: [address] [address] Performing Lab: [address] [address] TSH 2.22 u[IU]/mL 0.35-5.00 Nov 05, 2023 10:46 AM [place] BASIC METABOLIC PANEL (fasting) Specime n Type: SERUM No comment entered. Ordering Provider: ELMER RO Report Released Date/Time: Nov 02, 2023 09:03 AM Reporting Lab: [address] [address] Performing Lab: [address] [address] UREA NITROGEN 16 mg/dL 7-25 GLUCOSE 113 mg/dL H 65-100 SODIUM 134 mmol/L L 135-145 POTASSIUM 4.8 mmol/L 3.5-5.0 CHLORIDE 103 mmol/L 100-110 CO2 24 meq/L 20-30 CREATININE, Serum 1.24 mg/dL 0.50-1.40 eGFR(CKD-EPI 2020) 50 mL/min L >60 Nov 05, 2023 10:46 AM [place] CBC AND DIFF (AUTO) Specimen Type: BLOOD No comment entered. Ordering Provider: ELMER RO Report Released Date/Time: Nov 02, 2023 09:03 AM Reporting Lab: [address] [address] Performing Lab: [address] [address] WBC 4.11 10*3/uL L 4.50-11.00 RBC 4.34 [...] 10*3/uL 0.00-0.00 Nov 05, 2023 10:46 AM [place] LIPID PANEL FASTING Specimen Type: SERUM No comment entered. Ordering Provider: ADIA BERMUDEZ Report Released Date/Time: Oct 29, 2023 05:02 PM Reporting Lab: [address] [address] Performing Lab: [address] [address] CHOLESTEROL 224 mg/dL H TRIGLYCERIDE 158 mg/dL H 0-150 LDL calculated 136 mg/dL H 0-129 CHOL/HDL 4.0 HDL CHOLESTEROL 56 mg/dL 40-60 Nov 05, 2023 10:46 AM [facility] GLUCOSE FASTING Specimen Type: SERUM No comment entered. Ordering Provider: RHYS TAN Report Released Date/Time: Oct 18, 2023 12:52 PM Reporting Lab: [address] [address] Performing Lab: [address] [address] GLUCOSE 115 mg/dL H 65-100 Nov 05, 2023 10:46 AM [facility] HEMOGLOBIN A1C PANEL Specimen Type: BLOOD Comment: Values obtained from A1C measurements can vary. For atypical A1C assays, a reported value of 7.0 could actually be between 6.72 and 7.28 if measured by a reference method. A reported value of 9.0 could actually be between 8.73 and 9.27. Ref: http://www.[email or web address].org/CAPdata. asp Ordering Provider: RHYS TAN Report Released Date/Time: Oct 18, 2023 12:52 PM Reporting Lab: [address] [address] Performing Lab: [address] [address] HEMOGLOBIN A1C 5.9 H 4.0-5.6 Nov 05, 2023 10:46 AM [facility] LIVER FUNCTION Specimen Type: SERUM No comment entered. Ordering Provider: RHYS TAN Report Released Date/Time: Oct 18, 2023 12:52 PM Reporting Lab: [address] [address] Performing Lab: [address] [address] PROTEIN,TOTAL 7.0 g/dL 6.0-8.3 ALBUMIN 4.3 g/dL [...] 74 137/77 16 98 7 239 41 [facility] Social History: Smoking Status (Most current) [...] place. Date/Time Current Smoking Status Comment Facil [facility] Aug 11, 2022 02:50 PM VA-TOBACCO NEVER USED [facility] Tobacco Use History This section includes a history of the smoking, or tobacco-related health factors, that were collected on or before the date of the Encounter. The data comes from the [place] facility where the Encounter took place. Date/Time Smoking Status/Tobacco Use Comment F acility Dec 05, 2019 01:53 PM VA-TOBACCO NEVER USED [facility] May 26, 2016 02:32 PM LIFETIME NON-TOBACCO USER [facility] Radiology Reports: +/- 30 days of [...] the Encounter. The data comes from all [place] treatment facilities. Date/Time Radiology Report Provider Source Nov 16, 2023 10:34 AM KNEE 3 VIEWS (RIGHT): INDY KU [id number] -[id number] F Exm Date: NOV 16, 2023@10:34 Req Phys: TERESSAAELMER F Pat Loc: CWM/SO/PACT EIGHT WH (Req'g Lo Img Loc: [facility] 1 Service: [place] [address] (Case [id number] COMPLETE) KNEE 3 VIEWS (RIGHT) (RAD Detailed) CPT:31948 Reason for Study: right knee pain and decreased rom, s/p fall Clinical History: h/o tkr Report Status: Verified Date Reported: NOV 16, 2023 Date Verified: NOV 16, 2023 Waste Removalist E-Sig:/ES/LOLA NUNEZ JR Report: Study: AP weight-bearing [...] Primary Interpreting Staff: LOLA NUNEZ JR, Radiologist (Waste Removalist) /EALOLA DIAZ JR [facility] Nov 16, 2023 10:07 AM [facility] ULTRASOUND: INDY KU [id number] -[id number] F Exm Date: NOV 16, 2023@10:07 Req Phys: ELMER RO F Pat Loc: CWM/SO/PACT EIGHT WH (Req'g Lo Img Loc: ULTRASOUND Service: [place] [address] (Case [id number] COMPLETE) ULTRASOUND KIDNEYS (US Detailed) CPT:25747 Reason for Study: DROPPING IN GFR (Case [id number] COMPLETE) ULTRASOUND URINARY BLADDER (US Detailed) CPT:52603 Clinical History: Report Status: Verified Date Reported: NOV 16, 2023 Date Verified: NOV 16, 2023 Waste Removalist E-Sig:/ES/LOLA NUNEZ JR Report: Study: Genitourinary ultrasound. [...] Primary Interpreting Staff: LOLA NUNEZ JR, Radiologist (Waste Removalist) /LOLA RODRIGUEZ JR [facility] Encounter Notes: All associated encounter notes This section contains the clinical notes associated to the Encounter. Date/Time Encounter Note(s) Provider Source Nov 08, 2023 06:43 PM ENDOCRINOLOGY SECU RE MESSAGING: LOCAL TITLE: ENDOCRINOLOGY SECURE MESSAGING STANDARD TITLE: ENDOCRINOLOGY SECURE MESSAGING DATE OF NOTE: NOV 08, 2023@18:43 ENTRY DATE: NOV 08, 2023@18:43:48 AUTHOR: RHYS TAN EXP COSIGNER: URGENCY: STATUS: COMPLETED ------Original Message ----- Sent: 11/08/2023 06:43 PM ET From: RHYS TAN To: INDY KU Subject: General:General Inquiry Good evening! Your urine test is normal. Be well! /farhan/ RHYS TAN MD STAFF PHYSICIAN Signed: 11/08/2023 18:43 RHYS TAN [facility]
--- OUTSIDE RECORDS SUMMARY | 2024-03-10 09:22 | XMS_ITS ---
Author Name [facility] [place] Organization [facility] [place] [place] Address [address] [place] [address] Care Team Providers Care It Network Architect Name Role Phone GARRETT GOOD Primary Care [...] Boykin's Name Patient's Relationship to Policy [facility] Oct 06, 2018 HMO [id number] [phone] MEREDITH KU NN PATIENT ANTHEM BCBS CT FEDERAL PREFERRED PROVIDER ORGANIZAT ION (PPO) BASIC FAMIL Y Jan 31, 2015 [id number] [phone] MEREDITH KU NN PATIENT ANTHEM BCBS OF CT (BLUECARD) HIGH DEDUCTIBL E HEALTH PLAN [facility] HDHP Oct 06, 2018 [id number] MEREDITH KU NN PATIENT BCBS [place] HIGH DEDUCTIBL E HEALTH PLAN [facility] HDHP Oct 06, 2018 [id number] MEREDITH KU NN PATIENT BCBS OF [place] HIGH DEDUCTIBL E HEALTH PLAN CLINI [facility] SUPP HDHP Oct 06, [id number] DELUISITOLY NN PATIENT BCBS OF DE/[facility] CE ORGANIZ CLINI [facility] AND SUPPO RT Oct 06, [id number] [phone] DEMEREDITH JORGE NN PATIENT BCBS OF [facility] PREFERRED PROVIDER ORGANIZAT ION (PPO) BASIC FAMIL Y Jan 31, 2015 [id number] DEHNTAMEKALY NN PATIENT [place] FEPRX PLAN PRESCRIPT ION BCBS FEP Jan 31, 2015 [id number] ELMIRALY NN PATIENT [place]-F EP BCBS PRESCRIPT ION BCBS FEP PLAN Jan 31, 2015 [id number] ELMIRALY NN PATIENT EXPRESS SCRIPTS PRESCRIPT ION HMO Oct 06, 2018 L4TA [id number] DELUISITOLY NN PATIENT EXPRESS SCRIPTS PRESCRIPT ION CLINI [facility] RT Sep 19, 2018 L4TA [id number] DELUISITOLY NN PATIENT EXPRESS SCRIPTS ([id number]) PRESCRIPT ION HDHP Oct 06, 2018 L4TA [id number] DEHNEHLY NN PATIENT EXPRESS SCRIPTS ([id number]) PRESCRIPT ION L4TA Oct 06, 2018 L4TA [id number] DEHNEHLY NN PATIENT EXPRESS SCRIPTS ([id number]) PRESCRIPT ION L4TA HDHP Oct 06, 2018 L4TA [id number] DELUISITOLY NN PATIENT EXPRESS SCRIPTS RX PRESCRIPT ION CLINI [facility] SUPPO RT Oct 06, 2018 L4TA [id number] DEHNEH,LY NN PATIENT [id number] [facility] CE ORGANIZ CLINI [facility] AND SUPPO RT Oct 06, [id number] DEHNTAMEKALY NN PATIENT [id number] [facility] CE ORGANIZ CLINI CHRISTINE AND SUPPO RT Oct 06, [id number] DEHNEH,LY NN PATIENT G210 BCBS ([facility]) [facility] CE ORGANIZ CLINI [facility]STINE AND SUPPO RT Oct 06, 2018 [id number] DEHNEH,LY NN PATIENT G210 BCBS ([facility]) [facility] CE ORGANIZ CLINI [facility] AND SUPPO RT Oct 06, [id number] DEHNEH,LY NN PATIENT MEDICARE (WNR) MEDICARE () PART A Nov 19, 2006 PART A [id number] DEHNEH,LY NN PATIENT MEDICARE (WNR) MEDICARE ) PART A Nov 19, 2006 PART A [id number] DEHNEH,LY NN PATIENT MEDICARE (WNR) MEDICARE () PART B Nov 19, 2006 PART B [id number] DEHNEH,LY NN PATIENT MEDICARE (WN) MEDICARE ) PART A Nov 19, 2006 PART A [id number] DEHNEH,LY NN PATIENT MEDICARE (WNR) MEDICARE () PART A Nov 19, 2006 PART A [id number] DEHNEH,LY NN PATIENT MEDICARE (WNR) MEDICARE () PART A Nov 19, 2006 PART A [id number] DEHNEH,LY NN PATIENT MEDICARE (WNR) MEDICARE ) PART A Nov 19, 2006 PART A [id number] DEHNEH,LY NN PATIENT MEDICARE (WNR) MEDICARE () PART A Nov 19, 2006 PART A [id number] DEHNEH,LY NN PATIENT MEDICARE (WNR) MEDICARE () PART B Nov 19, 2006 PART B [id number] DEHNEH,LY NN PATIENT Selected Encounter This section includes the information on record at [place] for the Encounter. Date/Time Encounter Type Encounter Description Reason Pro vider Source Nov 14, 2023 08:54 AM Outpatient Encounter PRIMARY CARE/MEDICINE IHE Encounter Template Text not used by [place] Plan of Treatment: Future Appointments (+ 6 months) and Future Tests (+/- 45 days) The Plan of Treatment section includes future care activities for the patient from all [place] [facility] This section includes future appointments and future orders which are active, pending or scheduled. Future Appointments This section includes appointments that were scheduled to occur 6 months from the date of the Encounter, up to a maximum of 20 appointments. The data comes from all [facility]. Appointment Date/Time Appointment Type Appointme nt Facility Name Nov 15, 2023 11:00 AM AMBULATORY - REHAB MEDICIN E [facility] Nov 16, 2023 10:30 AM AMBULATORY - NONE [place] [facility] [place] [facility] Nov 16, 2023 11:00 AM AMBULATORY - NONE [place] [facility] [place] [facility] Dec 04, 2023 12:00 PM AMBULATORY - MEDICINE [place] [facility] [place] [facility] Dec 27, 2023 09:30 AM AMBULATORY - MEDICINE [place] [facility] [place] [facility] Feb 05, 2024 09:30 AM AMBULATORY - MEDICINE [place] [facility] [place] [facility] Feb 22, 2024 01:00 PM AMBULATORY - MEDICINE [facility] Feb 25, 2024 01:00 PM AMBULATORY - MEDICINE [place] [facility] [place] [facility] Feb 25, 2024 03:00 PM AMBULATORY - PSYCHIATRY [facility] Mar 10, 2024 09:15 AM AMBULATORY - MEDICINE [place] [facility] [place] [facility] Mar 13, 2024 03:00 PM AMBULATORY - MEDICINE [place] [facility] [place] [facility] Apr 03, 2024 02:30 PM AMBULATORY - PSYCHIATRY [facility] Active, Pending, and Scheduled Orders This section includes a listing of several types of active, pending, and scheduled orders, including clinic medications orders, diagnostic test orders, procedure orders and consult orders; where the start date of the order is 45 days before the date of the Encounter or 45 days after the date of theEncounter. The data comes from all [facility]. Test Date/Time Test Type Test Details Facility Name Nov 08, 2023 12:00 AM Laboratory - Chemistry Order CORTISOL (AM) BLOOD (SST-SERUM) [facility] [place] [facility] Nov 08, 2023 12:00 AM Laboratory - Chemistry Order MICROALBUMIN CREATININE RATIO PANEL URINE (RANDOM) [facility] Nov 08, 2023 12:00 AM Laboratory - Chemistry Order DEXAMETHASONE (Q) BLOOD (RED-PLAIN) SERUM SP [place] [facility] [place] [facility] Nov 09, 2023 02:02 PM Consult Order [facility]-NEPHROLOG[facility] [employer] Architect's Choice [facility] Dec 11, 2023 12:00 AM Laboratory - Chemistry Order OCCULT BLOOD FIT X1 SCREEN (MFP ONLY) STOOL FECES SP [facility] Lab Results: +/- 30 days of the encounter This section includes the Chemistry and Hematology Lab Results on record with [place] for the patient. Radiology Reports and Pathology Reports are provided separately, in subsequent sections. Lab Results This section contains the Chemistry/Hematology Results that were resulted 30 days before or 30 daysafter the date of the Encounter. Date/Time Source Result Type Result - Unit Interpretation Reference Range Comment Nov 09, 2023 02:05 PM [facility] MICROALBUMIN CREATININE RATIO PANEL Spe cimen Type: URINE No comment entered. Ordering Provider: KASIA RO Report Released Date/Time: Nov 09, 2023 02:02 PM Reporting Lab: [facility] [address] [address] Performing Lab: [facility] [address] [address] MICROALBUMIN/C REATININE RATIO 9.4 mg/g 0-29.9 MICROALBUMIN,Q UANTITATIVE 2.0 mg/dL RR UNAVAIL CREATININE URINE 211.76 mg/dL Nov 08, 2023 12:07 PM [facility] MICROALBUMIN CREATININE RATIO PANEL Specimen Type: URINE No comment entered. Ordering Provider: RHYS TAN Report Released Date/Time: Nov 08, 2023 11:43 AM Reporting Lab: [facility] [address] [facility] [address] Performing Lab: [address] [address] MICROALBUMIN/C REATININE RATIO canc mg/g 0-29.9 MICROALBUMIN,Q UANTITATIVE < 0.5 mg/dL RR UNAVAIL CREATININE URINE 41.24 mg/dL Nov 07, 2023 03:36 PM [facility] CRP(INFLAMMATORY) Specimen Type: PLASMA Comment: , Tests performed on [employer] SN:[id number] (405) Ordering Provider: ANKIT FLORES Report Released Date/Time: Nov 07, 2023 03:20 PM Reporting Lab: [facility] [address] [facility] [address] Performing Lab: [facility] [address] [facility] [address] CRP(INFLAMMATO RY) 19.4 mg/L H 0.0-5.0 Nov 07, 2023 03:36 PM [facility] TSH Specimen Type: SERUM Comment: , Tests performed on [employer] SN:[id number] (405) TSH within normal limits. Reflex testing not required. Ordering Provider: ANKIT FLORES Report Released Date/Time: Nov 07, 2023 03:20 PM Reporting Lab: [facility] [address] [facility] [address] Performing Lab: [facility] [address] [facility] [address] TSH 1.16 u[IU]/mL 0.35-5.00 Nov 07, 2023 03:[address] [facility](NEW[facility] Specimen Type: BLOOD Comment: Tests performed on [employer] ISED(405) Ordering Provider: ANKIT FLORES Report Released Date/Time: Nov 07, 2023 03:20 PM Reporting Lab: [facility] [address] [facility] [address] Performing Lab: [facility] [address] [facility] [address] ESR(NEW) 13 mm/h 0-30 Nov 07, 2023 03:36 PM [facility] LIVER PROFILE Specimen Type: PLASMA Comment: , Tests performed on [employer] SN:[id number] (405) Ordering Provider: ANKIT FLORES Report Released Date/Time: Nov 07, 2023 03:20 PM Reporting Lab: [facility] [address] [facility] [address] Performing Lab: [facility] [address] [facility] [address] PROTEIN, TOTAL 7.1 g/dL 6.0-8.5 ALBUMIN 4.1 [...] PM Reporting Lab: [facility] [address] [facility] [address] Performing Lab: [facility] [address] [facility] [address] WBC 5.9 10*3/uL 4.5-11.0 RBC 4.22 10*6/uL 3.93-5.16 HGB 11.6 g/dL L 12-15.2 HEMATOCRIT 34.6 L 36.6-45.6 MCV 82.0 fL 82-99 MCH 27.5 pg 26.2-32.6 MCHC 33.5 g/dL 30.8-35.1 PLT 224 10*3/uL 140-360 MPV 9.8 fL 9.2-12.4 RDW 13.2 12.0-16.0 Nov 07, 2023 03:36 PM [facility] P4 GLU,BUN,CREAT,LYTES,CA Specimen Type: PLASMA Comment: , Tests performed on [employer] SN:[id number] (710) Ordering Provider: ANKIT FLORES Report Released Date/Time: Nov 07, 2023 03:20 PM Reporting Lab: [facility] [address] [facility] [address] Performing Lab: [facility] [address] [facility] [address] UREA NITROGEN 14 mg/dL 7-25 SODIUM 134 mmol/L L 135-145 POTASSIUM 4.6 mmol/L 3.5-5.0 CHLORIDE 102 mmol/L 100-110 CARBON DIOXIDE 24 mmol/L 20-30 ANION GAP 8 4-16 GLUCOSE 109 mg/dL H 65-100 CREATININE 1.21 mg/dL 0.50-1.50 CALCIUM 10.1 mg/dL 8.5-10.5 eGFR(CKD-EPI 2020) 52 L Nov 05, 2023 10:46 AM [facility] TSH Specimen Type: SERUM No comment entered. Ordering Provider: KASIA RO Report Released Date/Time: Nov 02, 2023 09:03 AM Reporting Lab: [address] [address] Performing Lab: [address] [address] TSH 2.22 u[IU]/mL 0.35-5.00 Nov 05, 2023 10:46 AM [facility] BASIC METABOLIC PANEL (fasting) Specime n Type: SERUM No comment entered. Ordering Provider: KASIA RO Report Released Date/Time: Nov 02, 2023 09:03 AM Reporting Lab: [address] [address] Performing Lab: [address] [address] UREA NITROGEN 16 mg/dL 7-25 GLUCOSE 113 mg/dL H 65-100 SODIUM 134 mmol/L L 135-145 POTASSIUM 4.8 mmol/L 3.5-5.0 CHLORIDE 103 mmol/L 100-110 CO2 24 meq/L 20-30 CREATININE, Serum 1.24 mg/dL 0.50-1.40 eGFR(CKD-EPI 2020) 50 mL/min L >60 Nov 05, 2023 10:46 AM [facility] CBC AND DIFF (AUTO) Specimen Type: BLOOD No comment entered. Ordering Provider: KASIA RO Report Released Date/Time: Nov 02, 2023 09:03 AM Reporting Lab: [address] [address] Performing Lab: [address] [address] WBC 4.11 10*3/uL L 4.50-11.00 RBC 4.34 [...] 10*3/uL 0.00-0.00 Nov 05, 2023 10:46 AM [facility] LIPID PANEL FASTING Specimen Type: SERUM No comment entered. Ordering Provider: ADIA BERMUDEZ Report Released Date/Time: Oct 29, 2023 05:02 PM Reporting Lab: [address] [address] Performing Lab: [address] [address] CHOLESTEROL 224 mg/dL H TRIGLYCERIDE 158 mg/dL H 0-150 LDL calculated 136 mg/dL H 0-129 CHOL/HDL 4.0 HDL CHOLESTEROL 56 mg/dL 40-60 Nov 05, 2023 10:46 AM [facility] GLUCOSE FASTING Specimen Type: SERUM No comment entered. Ordering Provider: RHYS TAN Report Released Date/Time: Oct 18, 2023 12:52 PM Reporting Lab: [address] [address] Performing Lab: [address] [place] [address] GLUCOSE 115 mg/dL H 65-100 Nov 05, 2023 10:46 AM [facility] HEMOGLOBIN A1C PANEL Specimen Type: BLOOD [...] Oct 18, 2023 12:52 PM Reporting Lab: [address] [address] Performing Lab: [address] [address] HEMOGLOBIN A1C 5.9 H 4.0-5.6 Nov 05, 2023 10:46 AM [facility] LIVER FUNCTION Specimen Type: SERUM No comment entered. Ordering Provider: RHYS TAN Report Released Date/Time: Oct 18, 2023 12:52 PM Reporting Lab: [address] [address] Performing Lab: [address] [address] PROTEIN,TOTAL 7.0 g/dL 6.0-8.3 ALBUMIN 4.3 g/dL 3.5-5.0 ALKALINE PHOSPHATASE 75 U/L 40-150 AST 15 U/L 5-34 ALT 16 U/L BILIRUBIN, TOTAL 0.4 mg/dL 0.2-1.2 Social History: Smoking Status (Most current) and Tobacco Use (All prior to encounter date) This section includes the most current, and the historical, smoking and tobacco- related health factors from the [place] facility where the Encounter took place. Current Smoking Status This section includes the most current smoking, or tobacco-related health factor, from the [place] facility where the Encounter took place. Date/Time Current Smoking Status Comment Facil ity Aug 11, 2022 02:50 PM VA-TOBACCO NEVER USED [facility] Tobacco Use History This section includes a history of the smoking, or tobacco-related health factors, that were collected on or before the date of the Encounter. The data comes from the [place] facility where the Encounter took place. Date/Time Smoking Status/Tobacco Use Comment F acility Dec 05, 2019 01:53 PM VA-TOBACCO NEVER USED [facility] May 26, 2016 02:32 PM LIFETIME NON-TOBACCO USER [facility] Radiology Reports: +/- 30 days of [...] the Encounter. The data comes from all [place] treatment facilities. Date/Time Radiology Report Provider Source Nov 16, 2023 10:34 AM KNEE 3 VIEWS (RIGHT): INDY KU [id number] -1965 F Exm Date: NOV 16, 2023@10:34 Req Phys: KASIA RO F Pat Loc: CWM/SO/PACT EIGHT WH (Req'g Lo Img Loc: [facility] Service: [place] [address] (Case [id number] COMPLETE) KNEE 3 VIEWS (RIGHT) (RAD Detailed) CPT:03335 Reason for Study: right knee pain and decreased rom, s/p fall Clinical History: h/o tkr Report Status: Verified Date Reported: NOV 16, 2023 Date Verified: NOV 16, 2023 Lapel Padder Blindstitch E-Sig:/ES/LOLA NUNEZ JR Report: Study: AP weight-bearing [...] Primary Interpreting Staff: LOLA NUNEZ JR, Radiologist (Lapel Padder Blindstitch) /LOLA RODRIGUEZ JR [facility] Nov 16, 2023 10:07 AM KIDNEY AND BLADDER ULTRASOUND: INDY KU [id number] -1965 F Exm Date: NOV 16, 2023@10:07 Req Phys: KASIA RO Pat Loc: CWM/SO/PACT EIGHT WH (Req'g Lo Img Loc: ULTRASOUND Service: [place] [address] (Case [id number] COMPLETE) ULTRASOUND KIDNEYS (US Detailed) CPT:28290 Reason for Study: DROPPING IN GFR (Case [id number] COMPLETE) ULTRASOUND URINARY BLADDER (US Detailed) CPT:35011 Clinical History: Report Status: Verified Date Reported: NOV 16, 2023 Date Verified: NOV 16, 2023 Kevin E-Sig:/ES/LOLA NUNEZ JR Report: Study: Genitourinary ultrasound. [...] Primary Interpreting Staff: LOLA NUNEZ JR, Radiologist (Lapel Padder Blindstitch) /LOLA RODRIGUEZ JR [facility] Encounter Notes: All associated encounter notes This section contains the clinical notes associated to the Encounter. Date/Time Encounter Note(s) Provider Source Nov 14, 2023 08:54 AM LETTERS: LOCAL TITLE: PATIENT LETTER (T) STANDARD TITLE: LETTERS DATE OF NOTE: NOV 14, 2023@08:54 ENTRY DATE: NOV 14, 2023@08:54:50 AUTHOR: KASIA RO EXP COSIGNER: URGENCY: STATUS: COMPLETED PATIENT LETTER (T) Has ADDENDA DEPARTMENT OF [facility] Toll Free Number Primary Care Telephone Assistance can be reached at extension [phone] [facility] scheduling can be reached at extension [phone] [facility] scheduling can be reached at ext [phone] INDY KU [address] [place] [address], [phone] Dear , I reviewed your blood test results and are within normal limits. Please see below Collection time: Nov 09, 2023@14:05 Test Name Result Units Range --------- ------ ----- ----- mALB/Cr 9.4 mg/G 0 - 29.9 MICROALBUMIN,QUANTITATIVE 2.0 mg/dL Ref: RR UNAVAIL CREATININE URINE 211.76 mg/dL Comments: Ordering Provider: Kasia Ro Report Released Date/Time: Nov 09, 2023@16:10 If you have any questions please call our office back Sunday to Sunday from 8 AM to 4 PM; the phone number is [phone]. Sincerely, Dr. Kasia Ro 11/14/2023 ADDENDUM STATUS: COMPLETED THIS [employer] MAILED LETTER TO . 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
--- OUTSIDE RECORDS SUMMARY | 2024-03-10 09:22 | XMS_ITS | Encounter Summary ---
Author Name [facility] [place] [facility] [place] [facility] [place] [facility] [place] Address [address] [place] [address] Care Team Providers Care Oysterman Name Role Phone GARRETT GOOD Primary Care [...] CE ORGANIZ HMO Oct 06, 2018 [id number] MEREDITH KU NN PATIENT ANTHEM BCBS CT FEDERAL PREFERRED PROVIDER ORGANIZAT ION (PPO) BASIC FAMIL Y Jan 31, 2015 [id number] MEREDITH KU NN PATIENT ANTHEM BCBS OF CT (BLUECARD) HIGH DEDUCTIBL E HEALTH PLAN CLINI [facility] & SUP HDHP Oct 06, 2018 [id number] [phone] MEREDITH KU NN PATIENT BCBS [place] HIGH DEDUCTIBL E HEALTH PLAN CL[facility]I [facility] [place] HDHP Oct 06, 2018 [id number] MEREDITH KU NN PATIENT BCBS OF [place] HIGH DEDUCTIBL E HEALTH PLAN CLINI [facility]STINE SUPP HDHP Oct 06, [id number] [phone] DELUISITOLY NN PATIENT BCBS OF [facility] CE ORGANIZ CLINI CH[facility]STINE AND SUPPO RT Oct 06, [id number] DELUISITOLY NN PATIENT BCBS OF [facility] PREFERRED PROVIDER ORGANIZAT ION (PPO) BASIC FAMIL Y Jan 31, 2015 [id number] DEHNTAMEKALY NN PATIENT [place] FEPRX PLAN PRESCRIPT ION BCBS FEP Jan 31, 2015 [id number] MEREDITH KU NN PATIENT [place]ARK-F EP BCBS PRESCRIPT ION BCBS FEP PLAN Jan 31, 2015 [id number] ELMIRALY NN PATIENT EXPRESS SCRIPTS PRESCRIPT ION HMO Oct 06, 2018 L4TA [id number] ELMIRALY NN PATIENT EXPRESS SCRIPTS PRESCRIPT ION CLINI [facility] SUPPO RT Sep 19, 2018 L4TA [id number] DELUISITOLY NN PATIENT EXPRESS SCRIPTS ([id number]) PRESCRIPT ION HDHP Oct 06, 2018 L4TA [id number] DEHNEHLY NN PATIENT EXPRESS SCRIPTS ([id number]) PRESCRIPT ION L4TA Oct 06, 2018 L4TA [id number] DEHNEHLY NN PATIENT EXPRESS SCRIPTS ([id number]) PRESCRIPT ION L4TA HDHP Oct 06, 2018 L4TA [id number] DELUISITOLY NN PATIENT EXPRESS SCRIPTS RX PRESCRIPT ION CLINI [facility] SUPPO RT Oct 06, 2018 L4TA [id number] DEHNEH,LY NN PATIENT [id number] [facility] CE ORGANIZ CLINI [facility]INE AND SUPPO RT Oct 06, [id number] DEHNTAMEKALY NN PATIENT [id number] [facility] CE ORGANIZ CLINI CHRISTINE AND SUPPO RT Oct 06, [id number] DEHNEH,LY NN PATIENT [id number] BCBSM ([facility] SUPPO RT Oct 06, [id number] DEHNEH,LY NN PATIENT G210 BCBS ([facility]) [facility] SUPPO RT Oct 06, [id number] DEHNEH,LY NN PATIENT MEDICARE (WNR) MEDICARE ) PART A Nov 19, 2006 PART A [id number] DEHNEH,LY NN PATIENT MEDICARE (WNR) MEDICARE () PART A Nov 19, 2006 PART A [id number] DEHNEH,LY NN PATIENT MEDICARE (WNR) MEDICARE () PART A Nov 19, 2006 PART A [id number] DEHNEH,LY NN PATIENT MEDICARE (WN) MEDICARE ) PART B Nov 19, 2006 PART B [id number] DEHNEH,LY NN PATIENT MEDICARE (WNR) MEDICARE () PART A Nov 19, 2006 PART A [id number] DEHNEH,LY NN PATIENT MEDICARE (WNR) MEDICARE () PART A Nov 19, 2006 PART A [id number] DEHNEH,LY NN PATIENT MEDICARE (WNR) MEDICARE () PART A Nov 19, 2006 PART A [id number] DEHNEH,LY NN PATIENT MEDICARE (WNR) MEDICARE () PART A Nov 19, 2006 PART A [id number] [phone] DEHNEH,LY NN PATIENT MEDICARE (WNR) MEDICARE () PART B Nov 19, 2006 PART B [id number] DEHNEH,LY NN PATIENT Selected Encounter This section includes the information on record at [place] for the Encounter. Date/Time Encounter Type Encounter Description Reason Pro vider Source Nov 09, 2023 02:12 PM Outpatient Encounter PHYSICAL THERAPY IHE Encounter Template Text not used by [facility] Plan of Treatment: Future Appointments (+ 6 months) and Future Tests (+/- 45 days) The Plan of Treatment section includes future care activities [facility] the [facility] [place] [facility] This section includes future appointments and future orders which are active, pending or scheduled. Future Appointments This section includes appointments that were scheduled to occur 6 months from the date of the Encounter, up to a maximum of 20 appointments. The data comes from all [facility]. Appointment Date/Time Appointment Type Appointme nt Facility Name Nov 15, 2023 11:00 AM AMBULATORY - REHAB MEDICIN E [facility] Nov 16, 2023 10:30 AM AMBULATORY - NONE [facility] [place] [facility] Nov 16, 2023 11:00 AM AMBULATORY - NONE [facility] [facility] Dec 04, 2023 12:00 PM AMBULATORY - MEDICINE [facility] [place] [facility] Dec 27, 2023 09:30 AM AMBULATORY - MEDICINE [facility] [place] [facility] Feb 05, 2024 09:30 AM AMBULATORY - MEDICINE [place] [facility] [place] [facility] Feb 22, 2024 01:00 PM AMBULATORY - MEDICINE [facility] Feb 25, 2024 01:00 PM AMBULATORY - MEDICINE [place] [facility] [place] [facility] Feb 25, 2024 03:00 PM AMBULATORY - PSYCHIATRY [facility] Mar 10, 2024 09:15 AM AMBULATORY - MEDICINE [facility] [place] [facility] Mar 13, 2024 03:00 PM AMBULATORY - MEDICINE [facility] [place] [facility] Apr 03, 2024 02:30 PM AMBULATORY - PSYCHIATRY [facility] Active, Pending, and Scheduled Orders This section includes a listing of several types of active, pending, and scheduled orders, including clinic medications orders, diagnostic test orders, procedure orders and consult orders; where the start date of the order is 45 days before the date of the Encounter or 45 days after the date of theEncounter. The data comes from all [facility]. Test Date/Time Test Type Test Details Facility Name Nov 08, 2023 12:00 AM Laboratory - Chemistry Order MICROALBUMIN CREATININE RATIO PANEL URINE (RANDOM) [facility] Nov 08, 2023 12:00 AM Laboratory - Chemistry Order CORTISOL (AM) BLOOD (SST-SERUM) [facility] [place] [facility] Nov 08, 2023 12:00 AM Laboratory - Chemistry Order DEXAMETHASONE (Q) BLOOD (RED-PLAIN) SERUM SP [facility] [place] [facility] Nov 09, 2023 02:02 PM Consult Order [facility]NEPHROLOGY Cons Byproducts Pump Operator's Choice [facility] Dec 11, 2023 12:00 AM Laboratory - Chemistry Order OCCULT BLOOD FIT X1 SCREEN (MFP ONLY) STOOL FECES SP [facility] Lab Results: +/- 30 days of the encounter This section includes the Chemistry and Hematology Lab Results on record with [place] for the patient. Radiology Reports and Pathology Reports are provided separately, in subsequent sections. Lab Results This section contains the Chemistry/Hematology Results that were resulted 30 days before or 30 daysafter the date of the Encounter. Date/Time Source Result Type Result - Unit Interpretation Reference Range Comment Nov 09, 2023 02:05 PM [facility] MICROALBUMIN CREATININE RATIO PANEL Spe cimen Type: URINE No comment entered. Ordering Provider: ELMER RO Report Released Date/Time: Nov 09, 2023 02:02 PM Reporting Lab[facility] [address] [facility] [address] Performing Lab: [facility] [address] [address] MICROALBUMIN/C REATININE RATIO 9.4 mg/g 0-29.9 MICROALBUMIN,Q UANTITATIVE 2.0 mg/dL RR UNAVAIL CREATININE URINE 211.76 mg/dL Nov 08, 2023 12:07 PM [facility] MICROALBUMIN CREATININE RATIO PANEL Specimen Type: URINE No comment entered. Ordering Provider: RHYS TAN Report Released Date/Time: Nov 08, 2023 11:43 AM Reporting Lab: [facility] [address] [address] Performing Lab: [address] [address] MICROALBUMIN/C REATININE RATIO canc mg/g 0-29.9 MICROALBUMIN,Q UANTITATIVE < 0.5 mg/dL RR UNAVAIL CREATININE URINE 41.24 mg/dL Nov 07, 2023 03:36 PM [facility] TSH Specimen Type: SERUM Comment: , Tests performed on [employer] SN:[id number] (405) TSH within normal limits. Reflex testing not required. Ordering Provider: ANKIT FLORES Report Released Date/Time: Nov 07, 2023 03:20 PM Reporting Lab: [facility] [address] [facility] [address] Performing Lab: [facility] [address] [facility] [address] TSH 1.16 u[IU]/mL 0.35-5.00 Nov 07, 2023 03:[address] [facility] ESR(NEW) Specimen Type: BLOOD Comment: Tests performed on [employer] ISED(405) Ordering Provider: ANKIT FLORES Report Released Date/Time: Nov 07, 2023 03:20 PM Reporting Lab: [facility] [address] [facility] [address] Performing Lab: [facility] [address] [facility] [address] ESR(NEW) 13 mm/h 0-30 Nov 07, 2023 03:[address] [facility] CRP(INFLAMMATORY) Specimen Type: PLASMA Comment: , Tests performed on [employer] SN:[id number] (405) Ordering Provider: ANKIT FLORES Report Released Date/Time: Nov 07, 2023 03:20 PM Reporting Lab: [facility] [address] [facility] [address] Performing Lab: [facility] [address] [facility] [address] CRP(INFLAMMATO RY) 19.4 mg/L H 0.0-5.0 Nov 07, 2023 03:[address] [facility] LIVER PROFILE Specimen Type: PLASMA Comment: , Tests performed on [employer] [place] SN:[id number] (405) Ordering Provider: ANKIT FLORES Report Released Date/Time: Nov 07, 2023 03:20 PM Reporting Lab: [facility] [address] [facility] [address] Performing Lab: [facility] [address] [place] [facility] [address] PROTEIN, TOTAL 7.1 g/dL 6.0-8.5 ALBUMIN 4.1 g/dL 3.2-5.0 BILIRUBIN, TOTAL 0.3 mg/dL 0.2-1.2 ALKALINE PHOSPHATASE 74 U/L 40-150 ALT(SGPT) 22 U/L 7-52 AST(SGOT) 20 U/L 5-34 FIB-4 SCORE 1.10 <2.67 Nov 07, 2023 03:[address] [facility] CBC NO DIFF Specimen Type: BLOOD No comment entered. Ordering Provider: ANKIT FOLRES Report Released Date/Time: Nov 07, 2023 03:20 PM Reporting Lab: [facility] [address] [facility] [address] Performing Lab: [facility] [address] [facility] [address] WBC 5.9 10*3/uL 4.5-11.0 RBC 4.22 10*6/uL 3.93-5.16 HGB 11.6 g/dL L 12-15.2 HEMATOCRIT 34.6 L 36.6-45.6 MCV 82.0 fL 82-99 MCH 27.5 pg 26.2-32.6 MCHC 33.5 g/dL 30.8-35.1 PLT 224 10*3/uL 140-360 MPV 9.8 fL 9.2-12.4 RDW 13.2 12.0-16.0 Nov 07, 2023 03:[address] [facility] P4 GLU,BUN,CREAT,LYTES,CA Specimen Type: PLASMA Comment: , Tests performed on [employer] SN:[id number] (817) Ordering Provider: ANKIT FLORES Report Released Date/Time: Nov 07, 2023 03:20 PM Reporting Lab: [facility] [address] [facility] [address] Performing Lab: [facility] [address] [facility] [address] UREA NITROGEN 14 mg/dL 7-25 SODIUM 134 mmol/L L 135-145 POTASSIUM 4.6 mmol/L 3.5-5.0 CHLORIDE 102 mmol/L 100-110 CARBON DIOXIDE 24 mmol/L 20-30 ANION GAP 8 4-16 GLUCOSE 109 mg/dL H 65-100 CREATININE 1.21 mg/dL 0.50-1.50 CALCIUM 10.1 mg/dL 8.5-10.5 eGFR(CKD-EPI 2020) 52 L Nov 05, 2023 10:46 AM [facility] TSH Specimen Type: SERUM No comment entered. Ordering Provider: ELMER RO Report Released Date/Time: Nov 02, 2023 09:03 AM Reporting Lab: [address] [address] Performing Lab: [address] [address] TSH 2.22 u[IU]/mL 0.35-5.00 Nov 05, 2023 10:46 AM [facility] BASIC METABOLIC PANEL (fasting) Specime n Type: SERUM No comment entered. Ordering Provider: ELMER RO Report Released Date/Time: Nov 02, 2023 09:03 AM Reporting Lab: [address] [address] Performing Lab: [address] [address] UREA NITROGEN 16 mg/dL 7-25 GLUCOSE 113 mg/dL H 65-100 SODIUM 134 mmol/L L 135-145 POTASSIUM 4.8 mmol/L 3.5-5.0 CHLORIDE 103 mmol/L 100-110 CO2 24 meq/L 20-30 CREATININE, Serum 1.24 mg/dL 0.50-1.40 eGFR(CKD-EPI 2020) 50 mL/min L >60 Nov 05, 2023 10:46 AM [facility] CBC AND DIFF (AUTO) Specimen Type: BLOOD No comment entered. Ordering Provider: ELMER RO Report Released Date/Time: Nov 02, 2023 09:03 AM Reporting Lab: [address] [address] Performing Lab: [address] [address] WBC 4.11 10*3/uL L 4.50-11.00 RBC 4.34 [...] 10*3/uL 0.00-0.00 Nov 05, 2023 10:46 AM [facility] LIPID PANEL FASTING Specimen Type: SERUM No comment entered. Ordering Provider: ADIA BERMUDEZ Report Released Date/Time: Oct 29, 2023 05:02 PM Reporting Lab: [address] [address] Performing Lab: [address] [address] CHOLESTEROL 224 mg/dL H TRIGLYCERIDE 158 mg/dL H 0-150 LDL calculated 136 mg/dL H 0-129 CHOL/HDL 4.0 HDL CHOLESTEROL 56 mg/dL 40-60 Nov 05, 2023 10:46 AM [facility] GLUCOSE FASTING Specimen Type: SERUM No comment entered. Ordering Provider: RHYS TAN Report Released Date/Time: Oct 18, 2023 12:52 PM Reporting Lab: [address] [address] Performing Lab: [address] [address] GLUCOSE 115 mg/dL H 65-100 Nov 05, 2023 10:46 AM [facility] HEMOGLOBIN A1C PANEL Specimen Type: BLOOD Comment: Values obtained from A1C measurements can vary. For atypical A1C assays, a reported value of 7.0 could actually be between 6.72 and 7.28 if measured by a reference method. A reported value of 9.0 could actually be between 8.73 and 9.27. Ref: http://www.[employer] p.org/CAPdata. asp Ordering Provider: RHYS TAN Report Released Date/Time: Oct 18, 2023 12:52 PM Reporting Lab: [address] [address] Performing Lab: [address] [address] HEMOGLOBIN A1C 5.9 H 4.0-5.6 Nov 05, 2023 10:46 AM [facility] LIVER FUNCTION Specimen Type: SERUM No comment entered. Ordering Provider: RHYS TAN Report Released Date/Time: Oct 18, 2023 12:52 PM Reporting Lab: [address] [address] Performing Lab: [address] [address] PROTEIN,TOTAL 7.0 g/dL 6.0-8.3 ALBUMIN 4.3 g/dL 3.5-5.0 ALKALINE PHOSPHATASE 75 U/L 40-150 AST 15 U/L 5-34 ALT 16 U/L BILIRUBIN, TOTAL 0.4 mg/dL 0.2-1.2 Social History: Smoking Status (Most current) and Tobacco Use (All prior to encounter date) This section includes the most current, and the historical, smoking and tobacco- related health factors from the [place] facility where the Encounter took place. Current Smoking Status This section includes the most current smoking, or tobacco-related health factor, from the [place] facility where the Encounter took place. Date/Time Current Smoking Status Comment Facil ity Aug 11, 2022 02:50 PM [facility]-TOBACCO NEVER USED [facility] Tobacco Use History This section includes a history of the smoking, or tobacco-related health factors, that were collected on or before the date of the Encounter. The data comes from the [place] facility where the Encounter took place. Date/Time Smoking Status/Tobacco Use Comment F acility Dec 05, 2019 01:53 PM VA-TOBACCO NEVER USED [facility] May 26, 2016 02:32 PM LIFETIME NON-TOBACCO USER [facility] Radiology Reports: +/- 30 days of [...] the Encounter. The data comes from all [place] treatment facilities. Date/Time Radiology Report Provider Source Nov 16, 2023 10:34 AM KNEE 3 VIEWS (RIGHT): INDY KU [id number] -[id number] F Exm Date: NOV 16, 2023@10:34 Req Phys: ELMER RO F Pat Loc: CWM/SO/PACT EIGHT WH (Req'g Lo Img Loc: [facility] 1 Service: [place] [address] (Case [id number] COMPLETE) KNEE 3 VIEWS (RIGHT) (RAD Detailed) CPT:77476 Reason for Study: right knee pain and decreased rom, s/p fall Clinical History: h/o tkr Report Status: Verified Date Reported: NOV 16, 2023 Date Verified: NOV 16, 2023 Sales Developer E-Sig:/ES/LOLA NUNEZ JR Report: Study: AP weight-bearing [...] Primary Interpreting Staff: LOLA NUNEZ JR, Radiologist (Sales Developer) /LOLA RODRIGUEZ JR [facility] Nov 16, 2023 10:07 AM KIDNEY AND BLADDER ULTRASOUND: INDY KU [id number] -[id number] F Exm Date: NOV 16, 2023@10:07 Req Phys: ELMER RO Pat Loc: CWM/SO/PACT EIGHT WH (Req'g Lo Img Loc: ULTRASOUND Service: [place] [address] (Case [id number] COMPLETE) ULTRASOUND KIDNEYS (US Detailed) CPT:09602 Reason for Study: DROPPING IN GFR (Case [id number] COMPLETE) ULTRASOUND URINARY BLADDER (US Detailed) CPT:59466 Clinical History: Report Status: Verified Date Reported: NOV 16, 2023 Date Verified: NOV 16, 2023 Sales Developer E-Sig:/ES/LOLA NUNEZ JR Report: Study: Genitourinary ultrasound. [...] Primary Interpreting Staff: LOLA NUNEZ JR, Radiologist (Sales Developer) /LOLA RODRIGUEZ JR [facility] Encounter Notes: All associated encounter notes This section contains the clinical notes associated to the Encounter. Date/Time Encounter Note(s) Provider Source Nov 09, 2023 02:12 PM ADMINISTRATIVE NOT E: LOCAL TITLE: ADMINISTRATIVE NOTE STANDARD TITLE: ADMINISTRATIVE NOTE DATE OF NOTE: NOV 09, 2023@14:12 ENTRY DATE: NOV 09, 2023@14:12:40 AUTHOR: GOLD V[place]LEGAS EXP COSIGNER: URGENCY: STATUS: COMPLETED [place] requested knee brace in person. Scheduled 11/15/2023. 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
--- OUTSIDE RECORDS SUMMARY | 2024-03-10 09:22 | XMS_ITS ---
Author Name [facility] [place] Address [address] [place] [address] Care Team Providers Care Mangle Catcher Name Role Phone GARRETT GOOD Primary Care [...] Boykin's Name Patient's Relationship to Policy [facility] Oct 06, 2018 HMO [id number] [phone] MEREDITH TRENT NN PATIENT ANTHEM BCBS CT FEDERAL PREFERRED PROVIDER ORGANIZAT ION (PPO) BASIC FAMIL Y Jan 31, 2015 [id number] [phone] MEREDITH TRENT NN PATIENT ANTHEM BCBS OF CT (BLUECARD) HIGH DEDUCTIBL E HEALTH PLAN [facility]P HDHP Oct 06, 2018 [id number] MEREDITH TRENT NN PATIENT BCBS [place] HIGH DEDUCTIBL E HEALTH PLAN [facility]I [facility] [place] HDHP Oct 06, 2018 [id number] MEREDITH TERNT NN PATIENT BCBS OF [place] HIGH DEDUCTIBL E HEALTH PLAN CLINI [facility] SUPP HDHP Oct 06, [id number] DELUISITOLY NN PATIENT BCBS OF [place]/[employer] [facility] CE ORGANIZ CLINI CH[facility]STINE AND SUPPO RT Oct 06, [id number] [phone] DEMEREDITH JORGE NN PATIENT BCBS OF [facility] PREFERRED PROVIDER ORGANIZAT ION (PPO) BASIC FAMIL Y Jan 31, 2015 [id number] [phone] DEHNTAMEKALY NN PATIENT [place] FEPRX PLAN PRESCRIPT ION BCBS FEP Jan 31, 2015 [id number] ELMIRALY NN PATIENT [place]-F EP BCBS PRESCRIPT ION BCBS FEP PLAN Jan 31, 2015 [id number] ELMIRALY NN PATIENT EXPRESS SCRIPTS PRESCRIPT ION HMO Oct 06, 2018 L4TA [id number] DELUISITOLY NN PATIENT EXPRESS SCRIPTS PRESCRIPT ION CLINI [facility] RT Sep 19, 2018 L4TA [id number] DELUISITOLY NN PATIENT EXPRESS SCRIPTS ([id number]) PRESCRIPT ION HDHP Oct 06, 2018 L4TA [id number] DEHNEHLY NN PATIENT EXPRESS SCRIPTS ([id number]) PRESCRIPT ION L4TA Oct 06, 2018 L4TA [id number] DEHNEHLY NN PATIENT EXPRESS SCRIPTS ([id number]) PRESCRIPT ION L4TA HDHP Oct 06, 2018 L4TA [id number] DELUISITOLY NN PATIENT EXPRESS SCRIPTS RX PRESCRIPT ION CLINI [facility] SUPPO RT Oct 06, 2018 L4TA [id number] DEHNEH,LY NN PATIENT [id number] [facility] CE ORGANIZ CLINI [facility]INE AND SUPPO RT Oct 06, [id number] DEHNTAMEKALY NN PATIENT [id number] [facility] CE ORGANIZ CLINI CHRISTINE AND SUPPO RT Oct 06, [id number] DEHNEH,LY NN PATIENT G210 BCBSM ([facility]) [facility] CE ORGANIZ CLINI CHRISTINE AND SUPPO RT Oct 06, 2018 [id number] DEHNEH,LY NN PATIENT G210 BCBS (PROFESSIO NAL) [facility] CE ORGANIZ CLINI [facility]INE AND SUPPO RT Oct 06, [id number] DEHNEH,LY NN PATIENT MEDICARE (WNR) MEDICARE () PART A Nov 19, 2006 PART A [id number] DEHNEH,LY NN PATIENT MEDICARE (WNR) MEDICARE () PART A Nov 19, 2006 PART A [id number] DEHNEH,LY NN PATIENT MEDICARE (WNR) MEDICARE () PART A Nov 19, 2006 PART A [id number] DEHNEH,LY NN PATIENT MEDICARE (WNR) MEDICARE () PART A Nov 19, 2006 PART A [id number] DEHNEH,LY NN PATIENT MEDICARE (WNR) MEDICARE () PART B Nov 19, 2006 PART B [id number] DEHNEH,LY NN PATIENT MEDICARE (WNR) MEDICARE () PART A Nov 19, 2006 PART A [id number] DEHNEH,LY NN PATIENT MEDICARE (WNR) MEDICARE () PART A Nov 19, 2006 PART A [id number] DEHNEH,LY NN PATIENT MEDICARE (WNR) MEDICARE () PART A Nov 19, 2006 PART A [id number] DEHNEH,LY NN PATIENT MEDICARE (WNR) MEDICARE () PART B Nov 19, 2006 PART B [id number] DEHNEH,LY NN PATIENT Selected Encounter This section includes the information on record at [place] for the Encounter. Date/Time Encounter Type Encounter Description Reason Pro vider Source Nov 14, 2023 08:34 AM Outpatient Encounter PRIMARY CARE/MEDICINE IHE Encounter Template Text not used by [place] Plan of Treatment: Future Appointments (+ 6 months) and Future Tests (+/- 45 days) The Plan of Treatment section includes future care activities for the [facility] This section includes future appointments and future orders which are active, pending or scheduled. Future Appointments This section includes appointments that were scheduled to occur 6 months from the date of the Encounter, up to a maximum of 20 appointments. The data comes from all [facility]. Appointment Date/Time Appointment Type Appointme nt Facility Name Nov 15, 2023 11:00 AM AMBULATORY - REHAB MEDICIN E [facility] Nov 16, 2023 10:30 AM AMBULATORY - NONE [facility] [place] [facility] Nov 16, 2023 11:00 AM AMBULATORY - NONE [facility] [place] [facility] Dec 04, 2023 12:00 PM AMBULATORY - MEDICINE [facility] [facility] [place] [facility] Dec 27, 2023 09:30 AM AMBULATORY - MEDICINE [place] [facility] [place] [facility] Feb 05, 2024 09:30 AM AMBULATORY - [place]ICINE [place] [facility] [place] [facility] Feb 22, 2024 01:00 PM AMBULATORY - MEDICINE [facility] Feb 25, 2024 01:00 PM AMBULATORY - [place]ICINE [place] [facility] [place] [facility] Feb 25, 2024 03:00 PM AMBULATORY - PSYCHIATRY [facility] Mar 10, 2024 09:15 AM AMBULATORY - MEDICINE [place] [facility] [place] [facility] Mar 13, 2024 03:00 PM AMBULATORY - MEDICINE [place] [facility] [place] [facility] Apr 03, 2024 02:30 PM AMBULATORY - PSYCHIATRY [facility] Active, Pending, and [...] of theEncounter. The data comes from all [facility]. Test Date/Time Test Type Test Details Facility Name Nov 08, 2023 12:00 AM Laboratory - Chemistry Order CORTISOL (AM) BLOOD (SST-SERUM) [facility] [place] [facility] Nov 08, 2023 12:00 AM Laboratory - Chemistry Order MICROALBUMIN CREATININE RATIO PANEL URINE (RANDOM) [facility] Nov 08, 2023 12:00 AM Laboratory - Chemistry Order DEXAMETHASONE (Q) BLOOD (RED-PLAIN) SERUM SP [facility] [facility] Nov 09, 2023 02:02 PM Consult Order [facility]-NEPHROLOGY Cons Turbo Generator Oiler's Choice [facility] Dec 11, 2023 12:00 AM Laboratory - Chemistry Order OCCULT BLOOD FIT X1 SCREEN (MFP ONLY) STOOL FECES SP [facility] Lab Results: +/- 30 days of the encounter This section includes the Chemistry and Hematology Lab Results on record with [place] for the patient. Radiology Reports and Pathology Reports are provided separately, in subsequent sections. Lab Results This section contains the Chemistry/Hematology Results that were resulted 30 days before or 30 daysafter the date of the Encounter. Date/Time Source Result Type Result - Unit Interpretation Reference Range Comment Nov 09, 2023 02:05 PM [facility] MICROALBUMIN CREATININE RATIO PANEL Spe cimen Type: URINE No comment entered. Ordering Provider: ELMER RO Report Released Date/Time: Nov 09, 2023 02:02 PM Reporting [facility] [address] [address] Performing Lab: [facility] [address] [address] MICROALBUMIN/C REATININE RATIO 9.4 mg/g 0-29.9 MICROALBUMIN,Q UANTITATIVE 2.0 mg/dL RR UNAVAIL CREATININE URINE 211.76 mg/dL Nov 08, 2023 12:07 PM [facility] MICROALBUMIN CREATININE RATIO PANEL Specimen Type: URINE No comment entered. Ordering Provider: RHYS TAN Report Released Date/Time: Nov 08, 2023 11:43 AM Reporting Lab: [facility] [address] [address] Performing Lab: [address] [address] MICROALBUMIN/C REATININE RATIO canc mg/g 0-29.9 MICROALBUMIN,Q UANTITATIVE < 0.5 mg/dL RR UNAVAIL CREATININE URINE 41.24 mg/dL Nov 07, 2023 03:36 PM [facility] ESR(NEW) Specimen Type: BLOOD Comment: Tests performed on Alcor ISED(405) Ordering Provider: ANKIT FLORES Report Released Date/Time: Nov 07, 2023 03:20 PM Reporting Lab: [place] [facility] [address] [facility] [address] Performing Lab: [facility] [place] [facility] [address] [place] [place] [address] ESR(NEW) 13 mm/h 0-30 Nov 07, 2023 03:36 PM [facility] TSH Specimen Type: SERUM Comment: , Tests performed on Tan eyeOS [place] SN:[id number] (405) TSH within normal limits. Reflex testing not required. Ordering Provider: ANKIT FLORES Report Released Date/Time: Nov 07, 2023 03:20 PM Reporting Lab: [place] [facility] [address] [facility] [address] Performing Lab: [place] [facility] [address] [facility] [address] TSH 1.16 u[IU]/mL 0.35-5.00 Nov 07, 2023 03:36 PM [facility] CRP(INFLAMMATORY) Specimen Type: PLASMA Comment: , Tests performed on Tan eyeOS [place] SN:[id number] (405) Ordering Provider: ANKIT FLORES Report Released Date/Time: Nov 07, 2023 03:20 PM Reporting Lab: [place] [facility] [address] [place] [facility] [place] [address] Performing Lab: [place] [facility] [address] [place] [facility] [place] [place] [address] CRP(INFLAMMATO RY) 19.4 mg/L H 0.0-5.0 Nov 07, 2023 03:36 PM [facility] LIVER PROFILE Specimen Type: PLASMA Comment: , Tests performed on Atn eyeOS [place] SN:[id number] (405) Ordering Provider: ANKIT FLORES Report Released Date/Time: Nov 07, 2023 03:20 PM Reporting Lab: [place] [facility] [address] [facility] [address] Performing Lab: [place] [facility] [address] [facility] [address] PROTEIN, TOTAL 7.1 g/dL 6.0-8.5 ALBUMIN 4.1 g/dL 3.2-5.0 BILIRUBIN, TOTAL 0.3 mg/dL 0.2-1.2 ALKALINE PHOSPHATASE 74 U/L 40-150 ALT(SGPT) 22 U/L 7-52 AST(SGOT) 20 U/L 5-34 FIB-4 SCORE 1.10 <2.67 Nov 07, 2023 03:36 PM [facility] CBC NO DIFF Specimen Type: BLOOD No comment entered. Ordering Provider: ANKIT FLORES Report Released Date/Time: Nov 07, 2023 03:20 PM Reporting Lab: [facility] [address] [facility] [address] Performing Lab: [facility] [address] [facility] [address] WBC 5.9 10*3/uL 4.5-11.0 RBC 4.22 10*6/uL 3.93-5.16 HGB 11.6 g/dL L 12-15.2 HEMATOCRIT 34.6 L 36.6-45.6 MCV 82.0 fL 82-99 MCH 27.5 pg 26.2-32.6 MCHC 33.5 g/dL 30.8-35.1 PLT 224 10*3/uL 140-360 MPV 9.8 fL 9.2-12.4 RDW 13.2 12.0-16.0 Nov 07, 2023 03:36 PM [facility] P4 GLU,BUN,CREAT,LYTES,CA Specimen Type: PLASMA Comment: , Tests performed on Content [employer] [place] SN:[id number] (287) Ordering Provider: ANKIT FLORES Report Released Date/Time: Nov 07, 2023 03:20 PM Reporting Lab: [facility] [address] [facility] [address] Performing Lab: [facility] [address] [facility] [address] UREA NITROGEN 14 mg/dL 7-25 SODIUM 134 mmol/L L 135-145 POTASSIUM 4.6 mmol/L 3.5-5.0 CHLORIDE 102 mmol/L 100-110 CARBON DIOXIDE 24 mmol/L 20-30 ANION GAP 8 4-16 GLUCOSE 109 mg/dL H 65-100 CREATININE 1.21 mg/dL 0.50-1.50 CALCIUM 10.1 mg/dL 8.5-10.5 eGFR(CKD-EPI 2020) 52 L Nov 05, 2023 10:46 AM [facility] TSH Specimen Type: SERUM No comment entered. Ordering Provider: ELMER RO Report Released Date/Time: Nov 02, 2023 09:03 AM Reporting Lab: [address] [address] Performing Lab: [address] [address] TSH 2.22 u[IU]/mL 0.35-5.00 Nov 05, 2023 10:46 AM [facility] BASIC METABOLIC PANEL (fasting) Specime n Type: SERUM No comment entered. Ordering Provider: ELMER RO Report Released Date/Time: Nov 02, 2023 09:03 AM Reporting Lab: [address] [address] Performing Lab: [address] [address] UREA NITROGEN 16 mg/dL 7-25 GLUCOSE 113 mg/dL H 65-100 SODIUM 134 mmol/L L 135-145 POTASSIUM 4.8 mmol/L 3.5-5.0 CHLORIDE 103 mmol/L 100-110 CO2 24 meq/L 20-30 CREATININE, Serum 1.24 mg/dL 0.50-1.40 eGFR(CKD-EPI 2020) 50 mL/min L >60 Nov 05, 2023 10:46 AM [facility] CBC AND DIFF (AUTO) Specimen Type: BLOOD No comment entered. Ordering Provider: ELMER RO Report Released Date/Time: Nov 02, 2023 09:03 AM Reporting Lab: [address] [address] Performing Lab: [address] [address] WBC 4.11 10*3/uL L 4.50-11.00 RBC 4.34 [...] 10*3/uL 0.00-0.00 Nov 05, 2023 10:46 AM [facility] LIPID PANEL FASTING Specimen Type: SERUM No comment entered. Ordering Provider: ADIA BERMUDEZ Report Released Date/Time: Oct 29, 2023 05:02 PM Reporting Lab: [address] [address] Performing Lab: [address] [address] CHOLESTEROL 224 mg/dL H TRIGLYCERIDE 158 mg/dL H 0-150 LDL calculated 136 mg/dL H 0-129 CHOL/HDL 4.0 HDL CHOLESTEROL 56 mg/dL 40-60 Nov 05, 2023 10:46 AM [facility] GLUCOSE FASTING Specimen Type: SERUM No comment entered. Ordering Provider: RHYS TAN Report Released Date/Time: Oct 18, 2023 12:52 PM Reporting Lab: [address] [address] Performing Lab: [address] [place] [address] GLUCOSE 115 mg/dL H 65-100 Nov 05, 2023 10:46 AM [facility] HEMOGLOBIN A1C PANEL Specimen Type: BLOOD Comment: [...] Oct 18, 2023 12:52 PM Reporting Lab: [address] [address] Performing Lab: [address] [address] HEMOGLOBIN A1C 5.9 H 4.0-5.6 Nov 05, 2023 10:46 AM [facility] LIVER FUNCTION Specimen Type: SERUM No comment entered. Ordering Provider: RHYS TAN Report Released Date/Time: Oct 18, 2023 12:52 PM Reporting Lab: [address] [address] Performing Lab: [address] [address] PROTEIN,TOTAL 7.0 g/dL 6.0-8.3 ALBUMIN 4.3 g/dL [...] 11, 2022 02:50 PM [facility] Tobacco Use History This section includes a history of the smoking, or tobacco-related health factors, that were collected on or before the date of the Encounter. The data comes from the [place] facility where the Encounter took place. Date/Time Smoking Status/Tobacco Use Comment F acility Dec 05, 2019 01:53 PM [facility] NEVER USED [facility] May 26, 2016 02:32 PM LIFETIME NON-TOBACCO USER [facility] Radiology Reports: +/- 30 days of the [...] the Encounter. The data comes from all [place] treatment facilities. Date/Time Radiology Report Provider Source Nov 16, 2023 10:34 AM KNEE 3 VIEWS (RIGHT): LILLIAN TRENT [id number] -1965 F Exm Date: NOV 16, 2023@10:34 Req Phys: ELMER RO F Pat Loc: CWM/SO/PACT EIGHT WH (Req'g Lo Img Loc: [facility] Service: [place] [address] (Case [id number] COMPLETE) KNEE 3 VIEWS (RIGHT) (RAD Detailed) CPT:38153 Reason for Study: right knee pain and decreased rom, s/p fall Clinical History: h/o tkr Report Status: Verified Date Reported: NOV 16, 2023 Date Verified: NOV 16, 2023 Hris Developer E-Sig:/ES/LOLA NUNEZ JR Report: Study: AP [...] Primary Interpreting Staff: LOLA NUNEZ JR, Radiologist (Hris Developer) /[facility] Nov 16, 2023 10:07 AM KIDNEY AND BLADDER ULTRASOUND: LILLIAN TRENT [id number] -1965 F Exm Date: NOV 16, 2023@10:07 Req Phys: ELMER RO Pat Loc: CWM/SO/PACT EIGHT WH (Req'g Lo Img Loc: ULTRASOUND Service: [place] [address] (Case [id number] COMPLETE) ULTRASOUND KIDNEYS (US Detailed) CPT:82721 Reason for Study: DROPPING IN GFR (Case [id number] COMPLETE) ULTRASOUND URINARY BLADDER (US Detailed) CPT:69384 Clinical History: Report Status: Verified Date Reported: [...] Primary Interpreting Staff: LOLA NUNEZ JR, Radiologist (Hris Developer) /[facility] Encounter Notes: All associated encounter notes This section contains the clinical notes associated to the Encounter. Date/Time Encounter Note(s) Provider Source Nov 14, 2023 08:56 AM ADDENDUM: LOCAL TITLE: Addendum STANDARD TITLE: ADDENDUM DATE OF NOTE: NOV 14, 2023@08:56:03 ENTRY DATE: NOV 14, 2023@08:56:04 AUTHOR: ELMER RO EXP COSIGNER: URGENCY: STATUS: COMPLETED Please inform the that our radiologist suggested x-ray of the knee first. Also please inform the I already placed the orthopedics consultation on November 08, during our office visit Thank you /farhan/ ELMER RO MD PRIMARY CARE PHYSICIAN Signed: 11/14/2023 08:56 Receipt Acknowledged By: 11/15/2023 13:02 /farhan/ JOSE CARLOS KELLEY RN- REGISTERED NURSE ========= --- Original Document --- 11/14/23 PRIMARY CARE SECURE MESSAGING: ------Original Message -------- Sent: 11/13/2023 06:45 PM ET From: LILLIAN TRENT To: Yessy RO,_PRIMARYCARE_[facility] Subject: Test:Question about radiology Hello Dr. Ro, When I saw you recently in clinic, we discussed having a CTScan done of my right knee. I remember you told me that they would call me to schedule. Yesterday they called to schedule the kidney u/s, and when I asked about CTScan they said they have to talk with some doctor about it first. Today they called me and wanted to schedule an x-ray. I told them CTScan and they said no. My question is, which doctor at the facility denied the CTScan? My other question is, am I still going to be referred and treated at [facility]? I hope so. I look forward to hearing from you, and again thank you so much for spending so much time with me at our recent visit, I so appreciate you. Sincerely, Lillian Trent 100% [place] , [facility] [place]es/ DEL ECHOLS ADVANCED RABBIT FANCIER Signed: 11/14/2023 08:34 Receipt Acknowledged By: 11/15/2023 12:58 /es/ DYLAN LING BSN RN-BC REGISTERED NURSE 11/14/2023 08:55 /es/ ELMER RO MD PRIMARY CARE PHYSICIAN 11/15/2023 ADDENDUM STATUS: UNSIGNED You may not VIEW this UNSIGNED Addendum. ELMER RO [facility] [facility] [place] [facility] Nov 14, 2023 08:34 AM PRIMARY CARE SECUR E MESSAGING: LOCAL TITLE: PRIMARY CARE SECURE MESSAGING STANDARD TITLE: PRIMARY CARE SECURE MESSAGING DATE OF NOTE: NOV 14, 2023@08:34 ENTRY DATE: NOV 14, 2023@08:34:12 AUTHOR: MANOLO ECHOLS COSIGNER: URGENCY: STATUS: COMPLETED PRIMARY CARE SECURE MESSAGING Has ADDENDA ------Original Message -------- Sent: 11/13/2023 06:45 PM ET From: LILLIAN TRENT To: Yessy RO,_PRIMARYCARE_[facility] Subject: Test:Question about radiology Hello Dr. Ro, When I saw you recently in clinic, we discussed having a CTScan done of my right knee. I remember you told me that they would call me to schedule. Yesterday they called to schedule the kidney u/s, and when I asked about CTScan they said they have to talk with some doctor about it first. Today they called me and wanted to schedule an x-ray. I told them CTScan and they said no. My question is, which doctor at the facility denied the CTScan? My other question is, am I still going to be referred and treated at [facility]? I hope so. I look forward to hearing from you, and again thank you so much for spending so much time with me at our recent visit, I so appreciate you. Sincerely, Lillian Trent 100% [place], [facility] /farhan/ DEL ECHOLS ADVANCED RABBIT FANCIER Signed: 11/14/2023 08:34 Receipt Acknowledged By: 11/15/2023 12:58 /farhan/ JOSE CARLOS KELLEY RN-BC REGISTERED NURSE 11/14/2023 08:55 /farhan/ ELMER RO MD PRIMARY CARE PHYSICIAN 11/14/2023 ADDENDUM STATUS: COMPLETED Please inform the [place] that our radiologist suggested x-ray of the knee first. Also please inform the [place] I already placed the orthopedics consultation on November 08, during our office visit Thank you /farhan/ ELMER RO MD PRIMARY CARE PHYSICIAN Signed: 11/14/2023 08:56 Receipt Acknowledged By: 11/15/2023 13:02 /farhan/ JOSE CARLOS KELLEY RN-BC REGISTERED NURSE 11/15/2023 ADDENDUM STATUS: COMPLETED Reply sent to via secure message /JOSE CARLOS Garnett RN-BC REGISTERED NURSE Signed: 11/15/2023 13:02 MANOLO ECHOLS [facility]
--- OUTSIDE RECORDS SUMMARY | 2024-03-10 09:22 | XMS_ITS | Encounter Summary ---
Author Name [facility] [facility] [place] [facility] [place] Address [address] [place] [address] Care Team Providers Care Residential Driver Name Role Phone GARRETT GOOD Primary [...] Member ID Insurance Provider's Telephone Number Policy Bokyin's Name Patient's Relationship to Policy Boykin [facility] CE ORGANIZ HMO Oct 06, 2018 O [id number] MEREDITH KU NN PATIENT ANTHEM BCBS CT FEDERAL PREFERRED PROVIDER ORGANIZAT ION (PPO) BASIC FAMIL Y Jan 31, 2015 [id number] MEREDITH KU NN PATIENT ANTHEM BCBS OF CT (BLUECARD) HIGH DEDUCTIBL E [facility]ALTH PLAN [facility] HDHP Oct 06, 2018 [id number] MEREDITH KU NN PATIENT BCBS [place] HIGH DEDUCTIBL E HEALTH PLAN [facility] [place] HDHP Oct 06, 2018 [id number] MEREDITH KU NN PATIENT [place] OF [place] HIGH DEDUCTIBL E HEALTH PLAN CLINI [facility] SUPP HDHP Oct 06, [id number] DELUISITOLY NN PATIENT BCBS OF [facility] CE ORGANIZ [facility] SUPPO RT Oct 06, [id number] DELUISITOLY NN PATIENT BCBS OF [facility] PREFERRED PROVIDER ORGANIZAT ION (PPO) BASIC FAMIL Y Jan 31, 2015 [id number] DELUISITOLY NN PATIENT [place] FEPRX PLAN PRESCRIPT ION BCBS FEP Jan 31, 2015 [id number] ELMIRALY NN PATIENT [place]-F EP BCBS PRESCRIPT ION BCBS FEP PLAN Jan 31, 2015 [id number] ELMIRALY NN PATIENT EXPRESS SCRIPTS PRESCRIPT ION HMO Oct 06, 2018 L4TA [id number] DELUISITOLY NN PATIENT EXPRESS SCRIPTS PRESCRIPT ION [facility] Sep 19, 2018 L4TA [id number] DELUISITOLY NN PATIENT EXPRESS SCRIPTS ([id number]) PRESCRIPT ION [facility] Oct 06, 2018 L4TA [id number] DEHNEHLY NN PATIENT EXPRESS SCRIPTS ([id number]) PRESCRIPT ION L4TA Oct 06, 2018 L4TA [id number] DEHNEHLY NN PATIENT EXPRESS SCRIPTS ([id number]) PRESCRIPT ION L4TA HD Oct 06, 2018 L4TA [id number] DEHNTAMEKALY NN PATIENT EXPRESS SCRIPTS RX PRESCRIPT ION [facility] Oct 06, 2018 L4TA [id number] DEHNEH,LY NN PATIENT [id number] [facility] CE [facility]IZ [facility] RT Oct 06, [id number] DELUISITOLY NN PATIENT [id number] [facility] CE ORGANIZ CLINI [facility] AND SUPPO RT Oct 06, [id number] DEHNEH,LY NN PATIENT G210 BCBSM ([facility]) [facility] CE ORGANIZ CLINI [facility] SUPPO RT Oct 06, 2018 [id number] DEHNEH,LY NN PATIENT G210 BCBS ([facility]) [facility] RT Oct 06, [id number] DEHNEH,LY NN PATIENT MEDICARE (WNR) MEDICARE () PART A Nov 19, 2006 PART A [id number] DEHNEH,LY NN PATIENT MEDICARE (WNR) MEDICARE () PART A Nov 19, 2006 PART A [id number] DEHNEH,LY NN PATIENT MEDICARE (WNR) MEDICARE () PART A Nov 19, 2006 PART A [id number] DEHNEH,LY NN PATIENT MEDICARE (WN) MEDICARE ) PART B Nov 19, 2006 PART B [id number] DEHNEH,LY NN PATIENT MEDICARE (WNR) MEDICARE () PART A Nov 19, 2006 PART A [id number] DEHNEH,LY NN PATIENT MEDICARE (WNR) MEDICARE () PART A Nov 19, 2006 PART A [id number] DEHNEH,LY NN PATIENT MEDICARE (WNR) MEDICARE () PART A Nov 19, 2006 PART A [id number] DEHNEH,LY NN PATIENT MEDICARE (WNR) MEDICARE () PART A Nov 19, 2006 PART A [id number] DEHNEH,LY NN PATIENT MEDICARE (WNR) MEDICARE () PART B Nov 19, 2006 PART B [id number] DEHNEH,LY NN PATIENT Selected Encounter This section includes the information on record at [place] for the Encounter. Date/Time Encounter Type Encounter Description Reason Pro vider Source Nov 12, 2023 10:55 AM Outpatient Encounter DENTAL IHE Encounter Template Text not used by [facility] Plan of Treatment: Future Appointments (+ 6 months) and Future Tests (+/- 45 days) The Plan of Treatment section includes future care activities for the [facility] [place] [facility] This section includes future appointments and future orders which are active, pending or scheduled. Future Appointments This section includes appointments that were scheduled to occur 6 months from the date of the Encounter, up to a maximum of 20 appointments. The data comes from all [facility]. Appointment Date/Time Appointment Type Appointme nt Facility Name Nov 15, 2023 11:00 AM AMBULATORY - REHAB MEDICIN [facility] Nov 16, 2023 10:30 AM AMBULATORY - NONE [facility] [place] [facility] Nov 16, 2023 11:00 AM AMBULATORY - NONE [facility] [place] [facility] Dec 04, 2023 12:00 PM AMBULATORY - MEDICINE [facility] [place] [facility] Dec 27, 2023 09:30 AM AMBULATORY - MEDICINE [facility] [place] [facility] Feb 05, 2024 09:30 AM AMBULATORY - MEDICINE [facility] [place] [facility] Feb 22, 2024 01:00 PM AMBULATORY - MEDICINE [facility] Feb 25, 2024 01:00 PM AMBULATORY - MEDICINE [facility] [place] [facility] Feb 25, 2024 03:00 PM AMB[facility]ATORY - [facility] Mar 10, 2024 09:15 AM AMBULATORY - MEDICINE [facility] [place] [facility] Mar 13, 2024 03:00 PM AMBULATORY - MEDICINE [facility] [place] [facility] Apr 03, 2024 02:30 PM AM[facility]ULATORY - [facility]RY [facility] Active, Pending, and Scheduled Orders This section includes a listing of several types of active, pending, and scheduled orders, including clinic medications orders, diagnostic test orders, procedure orders and consult orders; where the start date of the order is 45 days before the date of the Encounter or 45 days after the date of theEncounter. The data comes from all [facility]. Test Date/Time Test Type Test Details Facility Name Nov 08, 2023 12:00 AM Laboratory - Chemistry Order MICROALBUMIN CREATININE RATIO PANEL URINE (RANDOM) [facility] Nov 08, 2023 12:00 AM Laboratory - Chemistry Order CORTISOL (AM) BLOOD (SST-SERUM) [facility] Nov 08, 2023 12:00 AM Laboratory - Chemistry Order DEXAMETHASONE (Q) BLOOD (RED-PLAIN) SERUM SP [facility] [place] [facility] Nov 09, 2023 02:02 PM Consult Order [facility]-NEPHROLOGY Cons Financial Services Professional's Choice [facility] Dec 11, 2023 12:00 AM Laboratory - Chemistry Order OCCULT BLOOD FIT X1 SCREEN (MFP ONLY) STOOL [facility] Lab Results: +/- 30 days of the [...] Range Comment Nov 09, 2023 02:05 PM [facility] MICROALBUMIN CREATININE RATIO PANEL Spe cimen Type: URINE No comment entered. Ordering Provider: ELMER RO Report Released Date/Time: Nov 09, 2023 02:02 PM Reporting [facility] [address] [facility] [facility] [address] Performing [facility]: [facility] [address] [facility] [address] MICROALBUMIN/C REATININE RATIO 9.4 mg/g 0-29.9 MICROALBUMIN,Q UANTITATIVE 2.0 mg/dL RR UNAVAIL CREATININE URINE 211.76 mg/dL Nov 08, 2023 12:07 PM [facility] MICROALBUMIN CREATININE RATIO PANEL Specimen Type: URINE No comment entered. Ordering Provider: RHYS TAN Report Released Date/Time: Nov 08, 2023 11:43 AM Reporting Lab: [facility] [address] [facility] [address] Performing Lab: [address] [address] MICROALBUMIN/C REATININE RATIO canc mg/g 0-29.9 MICROALBUMIN,Q UANTITATIVE < 0.5 mg/dL RR UNAVAIL CREATININE URINE 41.24 mg/dL Nov 07, 2023 03:36 PM [facility] TSH Specimen Type: SERUM Comment: , Tests performed on IgnitionOne SN:[id number] (405) TSH within normal limits. Reflex testing not required. Ordering Provider: ANKIT FLORES Report Released Date/Time: Nov 07, 2023 03:20 PM Reporting Lab: [facility] [address] [address] Performing Lab: [facility] [address] [address] TSH 1.16 u[IU]/mL 0.35-5.00 Nov 07, 2023 03:36 PM [facility] ESR(NEW) Specimen Type: BLOOD Comment: Tests performed on AlcBuscapé ISED(405) Ordering Provider: ANKIT FLORES Report Released Date/Time: Nov 07, 2023 03:20 PM Reporting Lab: [facility] [address] [address] Performing Lab: [facility] [address] [address] ESR(NEW) 13 mm/h 0-30 Nov 07, 2023 03:36 PM [facility] CRP(INFLAMMATORY) Specimen Type: PLASMA Comment: , Tests performed on woohoo mobile marketing [place] SN:[id number] (405) Ordering Provider: ANKIT FLORES Report Released Date/Time: Nov 07, 2023 03:20 PM Reporting Lab: [facility] [address] [address] Performing Lab: [facility] [address] [address] CRP(INFLAMMATO RY) 19.4 mg/L H 0.0-5.0 Nov 07, 2023 03:36 PM [facility] LIVER PROFILE Specimen Type: PLASMA Comment: , Tests performed on [employer] mobile [employer] [place] SN:[id number] (405) Ordering Provider: ANKIT FLORES Report Released Date/Time: Nov 07, 2023 03:20 PM Reporting Lab: [facility] [address] [address] Performing Lab: [facility] [address] [address] PROTEIN, TOTAL 7.1 g/dL 6.0-8.5 ALBUMIN 4.1 g/dL 3.2-5.0 BILIRUBIN, TOTAL 0.3 mg/dL 0.2-1.2 ALKALINE PHOSPHATASE 74 U/L 40-150 ALT(SGPT) 22 U/L 7-52 AST(SGOT) 20 U/L 5-34 FIB-4 SCORE 1.10 <2.67 Nov 07, 2023 03:36 PM [facility] CBC NO DIFF Specimen Type: BLOOD No comment entered. Ordering Provider: AKNIT FLORES Report Released Date/Time: Nov 07, 2023 03:20 PM Reporting Lab: [facility] [address] [address] Performing Lab: [facility] [address] [address] WBC 5.9 10*3/uL 4.5-11.0 RBC 4.22 10*6/uL 3.93-5.16 HGB 11.6 g/dL L 12-15.2 HEMATOCRIT 34.6 L 36.6-45.6 MCV 82.0 fL 82-99 MCH 27.5 pg 26.2-32.6 MCHC 33.5 g/dL 30.8-35.1 PLT 224 10*3/uL 140-360 MPV 9.8 fL 9.2-12.4 RDW 13.2 12.0-16.0 Nov 07, 2023 03:36 PM [facility] P4 GLU,BUN,CREAT,LYTES,CA Specimen Type: PLASMA Comment: , Tests performed on [employer] mobile [employer] [place] SN:[id number] (268) Ordering Provider: ANKIT FLORES Report Released Date/Time: Nov 07, 2023 03:20 PM Reporting Lab: [facility] [address] [address] Performing Lab: [facility] [address] [address] UREA NITROGEN 14 mg/dL 7-25 SODIUM 134 mmol/L L 135-145 POTASSIUM 4.6 mmol/L 3.5-5.0 CHLORIDE 102 mmol/L 100-110 CARBON DIOXIDE 24 mmol/L 20-30 ANION GAP 8 4-16 GLUCOSE 109 mg/dL H 65-100 CREATININE 1.21 mg/dL 0.50-1.50 CALCIUM 10.1 mg/dL 8.5-10.5 eGFR(CKD-EPI 2020) 52 L Nov 05, 2023 10:46 AM [facility] TSH Specimen Type: SERUM No comment entered. Ordering Provider: ELMER RO Report Released Date/Time: Nov 02, 2023 09:03 AM Reporting Lab: [address] [address] Performing Lab: [address] [address] TSH 2.22 u[IU]/mL 0.35-5.00 Nov 05, 2023 10:46 AM [facility] BASIC METABOLIC PANEL (fasting) Specime n Type: SERUM No comment entered. Ordering Provider: ELMER RO Report Released Date/Time: Nov 02, 2023 09:03 AM Reporting Lab: [address] [address] Performing Lab: [address] [address] UREA NITROGEN 16 mg/dL 7-25 GLUCOSE 113 mg/dL H 65-100 SODIUM 134 mmol/L L 135-145 POTASSIUM 4.8 mmol/L 3.5-5.0 CHLORIDE 103 mmol/L 100-110 CO2 24 meq/L 20-30 CREATININE, Serum 1.24 mg/dL 0.50-1.40 eGFR(CKD-EPI 2020) 50 mL/min L >60 Nov 05, 2023 10:46 AM [facility] CBC AND DIFF (AUTO) Specimen Type: BLOOD No comment entered. Ordering Provider: ELMER RO Report Released Date/Time: Nov 02, 2023 09:03 AM Reporting Lab: [address] [address] Performing Lab: [address] [address] WBC 4.11 10*3/uL L 4.50-11.00 RBC 4.34 [...] 10*3/uL 0.00-0.00 Nov 05, 2023 10:46 AM [facility] LIPID PANEL FASTING Specimen Type: SERUM No comment entered. Ordering Provider: ADIA BERMUDEZ Report Released Date/Time: Oct 29, 2023 05:02 PM Reporting Lab: [address] [address] Performing Lab: [address] [address] CHOLESTEROL 224 mg/dL H TRIGLYCERIDE 158 mg/dL H 0-150 LDL calculated 136 mg/dL H 0-129 CHOL/HDL 4.0 HDL CHOLESTEROL 56 mg/dL 40-60 Nov 05, 2023 10:46 AM [facility] GLUCOSE FASTING Specimen Type: SERUM No comment entered. Ordering Provider: RHYS TAN Report Released Date/Time: Oct 18, 2023 12:52 PM Reporting Lab: [address] [address] Performing Lab: [address] [address] GLUCOSE 115 mg/dL H 65-100 Nov 05, 2023 10:46 AM [facility] HEMOGLOBIN A1C PANEL Specimen Type: BLOOD [...] Oct 18, 2023 12:52 PM Reporting Lab: [address] [address] Performing Lab: [address] [address] HEMOGLOBIN A1C 5.9 H 4.0-5.6 Nov 05, 2023 10:46 AM [facility] LIVER FUNCTION Specimen Type: SERUM No comment entered. Ordering Provider: RHYS TAN Report Released Date/Time: Oct 18, 2023 12:52 PM Reporting Lab: [address] [address] Performing Lab: [address] [address] PROTEIN,TOTAL 7.0 g/dL 6.0-8.3 ALBUMIN 4.3 g/dL [...] 11, 2022 02:50 PM VA-TOBACCO NEVER USED [facility] Tobacco Use History This section includes a history of the smoking, or tobacco-related health factors, that were collected on or before the date of the Encounter. The data comes from the [place] facility where the Encounter took place. Date/Time Smoking Status/Tobacco Use Comment F acility Dec 05, 2019 01:53 PM VA-TOBACCO NEVER USED [facility] May 26, 2016 02:32 PM LIFETIME NON-TOBACCO USER [facility] Radiology Reports: +/- 30 days of [...] the Encounter. The data comes from all [place] treatment facilities. Date/Time Radiology Report Provider Source Nov 16, 2023 10:34 AM KNEE 3 VIEWS (RIGHT): INDY KU [id number] -[id number] F Exm Date: NOV 16, 2023@10:34 Req Phys: ELMER RO F Pat Loc: CWM/SO/PACT EIGHT WH (Req'g Lo Img Loc: [facility] 1 Service: [place] [address] (Case [id number] COMPLETE) KNEE 3 VIEWS (RIGHT) (RAD Detailed) CPT:87230 Reason for Study: right knee pain and decreased rom, s/p fall Clinical History: h/o tkr Report Status: Verified Date Reported: NOV 16, 2023 Date Verified: NOV 16, 2023 Application Development Consultant E-Sig:/ES/LOLA NUNEZ JR Report: Study: AP weight-bearing [...] Primary Interpreting Staff: LOLA NUNEZ JR, Radiologist (Application Development Consultant) /LOLA RODRIGUEZ JR [facility] Nov 16, 2023 10:07 AM [facility] ULTRASOUND: INDY KU [id number] -[id number] F Exm Date: NOV 16, 2023@10:07 Req Phys: ELMER RO Pat Loc: CWM/SO/PACT EIGHT WH (Req'g Lo Img Loc: ULTRASOUND Service: [place] [address] (Case [id number] COMPLETE) ULTRASOUND KIDNEYS (US Detailed) CPT:97198 Reason for Study: DROPPING IN GFR (Case [id number] COMPLETE) ULTRASOUND URINARY BLADDER (US Detailed) CPT:70948 Clinical History: Report Status: Verified Date Reported: NOV 16, 2023 Date Verified: NOV 16, 2023 Application Development Consultant E-Sig:/ES/LOLA NUNEZ JR Report: Study: Genitourinary ultrasound. [...] Primary Interpreting Staff: LOLA NUNEZ JR, Radiologist (Application Development Consultant) /LOLA RODRIGUEZ JR [facility] Encounter Notes: All associated encounter notes This section contains the clinical notes associated to the Encounter. Date/Time Encounter Note(s) Provider Source Nov 12, 2023 10:55 AM DENTISTRY TELEPHON E ENCOUNTER NOTE: LOCAL TITLE: TELEPHONE NOTE/DENTAL STANDARD TITLE: DENTISTRY TELEPHONE ENCOUNTER NOTE DATE OF NOTE: NOV 12, 2023@10:55 ENTRY DATE: NOV 12, 2023@10:55:19 AUTHOR: KEYLA CORNELL EXP COSIGNER: URGENCY: STATUS: COMPLETED [facility] Toll Free Number Primary Care Telephone Assistance can be reached at ext. [phone] option 2 [facility] scheduling can be reached at ext. [phone] option 2 [facility] scheduling can be reached at ext. [phone] option 3 NOV 12, 2023 INDY KU [address] [place] [address] Dear INDY KU We have been attempting to contact you by phone to schedule a dental appointment that was requested for you. If you are interested in scheduling this appointment, please call us back at [phone]. [phone] or Toll Free and follow the prompts for our Telephone Call Center. Our clinic hours are Sunday through Sunday 8:00 am to 4:30 pm. Sincerely, Your Dental Care Team [address] [address] /farhan/ KEYLA CORNELL [employer] MANAGER Signed: 11/12/2023 10:55 KEYLA CORNELL [facility]
--- OUTSIDE RECORDS SUMMARY | 2024-03-10 09:22 | XMS_ITS | Encounter Summary ---
Author Name [facility] [place] Address [address] [place] [address] Care Team Providers Care Shop Coordinator Name Role Phone GARRETT GOOD Primary Care [...] Boykin's Name Patient's Relationship to Policy [facility] Oct 06, 2018 HMO [id number] MEREDITH KU NN PATIENT ANTHEM BCBS CT FEDERAL PREFERRED PROVIDER ORGANIZAT ION (PPO) BASIC FAMIL Y Jan 31, 2015 [id number] MEREDITH KU NN PATIENT ANTHEM BCBS OF CT (BLUECARD) HIGH DEDUCTIBL E HEALTH PLAN CLINI [facility]P HDHP Oct 06, 2018 [id number] MEREDITH KU NN PATIENT BCBS [place] HIGH DEDUCTIBL E HEALTH PLAN CLINI [facility] [place] HDHP Oct 06, 2018 [id number] MEREDITH KU NN PATIENT BCBS OF [place] HIGH DEDUCTIBL E HEALTH PLAN CLINI [facility]INE SUPP HDHP Oct 06, [id number] [phone] DELUISITOLY NN PATIENT BCBS OF [place]/[employer] [facility] CE ORGANIZ CLINI [facility] AND SUPPO RT Oct 06, [id number] DEMEREDITH JORGE NN PATIENT BCBS OF [facility] PREFERRED PROVIDER ORGANIZAT ION (PPO) BASIC FAMIL Y Jan 31, 2015 [id number] [phone] DEHNTAMEKALY NN PATIENT [place] FEPRX PLAN PRESCRIPT ION BCBS FEP Jan 31, 2015 [id number] ELMIRALY NN PATIENT [place]-F EP BCBS PRESCRIPT ION BCBS FEP PLAN Jan 31, 2015 [id number] ELMIRALY NN PATIENT EXPRESS SCRIPTS PRESCRIPT ION HMO Oct 06, 2018 L4TA [id number] DELUISITOLY NN PATIENT EXPRESS SCRIPTS PRESCRIPT ION CLINI [facility] SUPPO RT Sep 19, 2018 L4TA [id number] DELUISITOLY NN PATIENT EXPRESS SCRIPTS ([id number]) PRESCRIPT ION HDHP Oct 06, 2018 L4TA [id number] DEHNEHLY NN PATIENT EXPRESS SCRIPTS ([id number]) PRESCRIPT ION L4TA Oct 06, 2018 L4TA [id number] DEHNEHLY NN PATIENT EXPRESS SCRIPTS ([id number]) PRESCRIPT ION L4TA HDHP Oct 06, 2018 L4TA [id number] DELUISITOLY NN PATIENT EXPRESS SCRIPTS RX PRESCRIPT ION CLINI [facility] SUPPO RT Oct 06, 2018 L4TA [id number] DEHNEH,LY NN PATIENT [id number] [facility] CE ORGANIZ CLINI [facility] AND SUPPO RT Oct 06, [id number] [phone] DEHNTAMEKALY NN PATIENT [id number] [facility] CE ORGANIZ CLINI CHRISTINE AND SUPPO RT Oct 06, [id number] DEHNEH,LY NN PATIENT G210 BCBSM ([facility]) [facility] CE ORGANIZ CLINI [facility]INE AND SUPPO RT Oct 06, 2018 [id number] DEHNEH,LY NN PATIENT G210 BCBS ([facility] NAL) [facility] CE ORGANIZ CLINI [facility]INE AND SUPPO RT Oct 06, [id number] DEHNEH,LY NN PATIENT MEDICARE (WNR) MEDICARE () PART A Nov 19, 2006 PART A [id number] DEHNEH,LY NN PATIENT MEDICARE (WNR) MEDICARE () PART A Nov 19, 2006 PART A [id number] DEHNEH,LY NN PATIENT MEDICARE (WNR) MEDICARE () PART A Nov 19, 2006 PART A [id number] DEHNEH,LY NN PATIENT MEDICARE (WNR) MEDICARE () PART A Nov 19, 2006 PART A [id number] DEHNEH,LY NN PATIENT MEDICARE (WNR) MEDICARE () PART B Nov 19, 2006 PART B [id number] DEHNEH,LY NN PATIENT MEDICARE (WNR) MEDICARE () PART A Nov 19, 2006 PART A [id number] DEHNEH,LY NN PATIENT MEDICARE (WNR) MEDICARE () PART A Nov 19, 2006 PART A [id number] DEHNEH,LY NN PATIENT MEDICARE (WNR) MEDICARE () PART A Nov 19, 2006 PART A [id number] [phone] DEHNEH,LY NN PATIENT MEDICARE (WNR) MEDICARE () PART B Nov 19, 2006 PART B [id number] DEHNEH,LY NN PATIENT Selected Encounter This section includes the information on record at [place] for the Encounter. Date/Time Encounter Type Encounter Description Reason Pro vider Source Nov 09, 2023 01:24 PM Outpatient Encounter PRIMARY CARE/MEDICINE IHE Encounter Template Text not used by [place] Plan of Treatment: Future Appointments (+ 6 months) and Future Tests (+/- 45 days) The Plan of Treatment section includes future care activities for the patient from all [place] [facility] This section includes future appointments and future orders which are active, pending or scheduled. Future Appointments This section includes appointments that were scheduled to occur 6 months from the date of the Encounter, up to a maximum of 20 appointments. The data comes from all [facility]. Appointment Date/Time Appointment Type Appointme nt Facility Name Nov 15, 2023 11:00 AM AMBULATORY - REHAB MEDICIN [facility] Nov 16, 2023 10:30 AM AMBULATORY - NONE [facility] [place] [facility] Nov 16, 2023 11:00 AM AMBULATORY - NONE [facility] [place] [facility] Dec 04, 2023 12:00 PM AMBULATORY - [place]ICINE [facility] [facility] [place] [facility] Dec 27, 2023 09:30 AM AMBULATORY - [place]ICINE [facility] [facility] [place] [facility] Feb 05, 2024 09:30 AM AMB[facility]ATORY - [place]ICINE [facility] [place] [facility] Feb 22, 2024 01:00 PM AMBULATORY - MEDICINE [facility] Feb 25, 2024 01:00 PM AMBULATORY - [place]ICINE [facility] [facility] [place] [facility] Feb 25, 2024 03:00 PM AMBULATORY - PSYCHIATRY [facility] Mar 10, 2024 09:15 AM AMBULATORY - [place]ICINE [facility] [place] [facility] Mar 13, 2024 03:00 PM AMBULATORY - [place]ICINE [facility] [facility] [place] [facility] Apr 03, 2024 02:30 PM AMBULATORY - PSYCHIATRY [facility] Active, Pending, and Scheduled Orders This section includes a listing of several types of active, pending, and scheduled orders, including clinic medications orders, diagnostic test orders, procedure orders and consult orders; where the start date of the order is 45 days before the date of the Encounter or 45 days after the date of theEncounter. The data comes from all [facility]. Test Date/Time Test Type Test Details Facility Name Nov 08, 2023 12:00 AM Laboratory - Chemistry Order CORTISOL (AM) BLOOD (SST-SERUM) [facility] [place] [facility] Nov 08, 2023 12:00 AM Laboratory - Chemistry Order MICROALBUMIN CREATININE RATIO PANEL URINE (RANDOM) [facility] Nov 08, 2023 12:00 AM Laboratory - Chemistry Order DEXAMETHASONE (Q) BLOOD (RED-PLAIN) SERUM SP [facility] [place] [facility] Nov 09, 2023 02:02 PM Consult Order [facility] Cons Director Clinical Research's Choice [facility] Dec 11, 2023 12:00 AM Laboratory - Chemistry Order OCCULT BLOOD FIT X1 SCREEN (MFP ONLY) STOOL FECES SP [facility] Lab Results: +/- 30 days of the [...] Range Comment Nov 09, 2023 02:05 PM [facility] MICROALBUMIN CREATININE RATIO PANEL Spe cimen Type: URINE No comment entered. Ordering Provider: ELMER RO Report Released Date/Time: Nov 09, 2023 02:02 PM Reporting Lab: [facility] [address] [address] Performing Lab: [facility] [address] [address] MICROALBUMIN/C REATININE RATIO 9.4 mg/g 0-29.9 MICROALBUMIN,Q UANTITATIVE 2.0 mg/dL RR UNAVAIL CREATININE URINE 211.76 mg/dL Nov 08, 2023 12:07 PM [facility] MICROALBUMIN CREATININE RATIO PANEL Specimen Type: URINE No comment entered. Ordering Provider: RHYS TAN Report Released Date/Time: Nov 08, 2023 11:43 AM Reporting Lab: [facility] [address] [address] Performing Lab: [address] [address] MICROALBUMIN/C REATININE RATIO canc mg/g 0-29.9 MICROALBUMIN,Q UANTITATIVE < 0.5 mg/dL RR UNAVAIL CREATININE URINE 41.24 mg/dL Nov 07, 2023 03:36 PM [facility] ESR(NEW) Specimen Type: BLOOD Comment: Tests performed on Alcor ISED(405) Ordering Provider: ANKIT FLORES Report Released Date/Time: Nov 07, 2023 03:20 PM Reporting Lab: [facility] [address] [facility] [address] Performing Lab: [facility] [address] [place] [facility] [place] [address] ESR(NEW) 13 mm/h 0-30 Nov 07, 2023 03:36 PM [facility] TSH Specimen Type: SERUM Comment: , Tests performed on Tan [employer] [place] SN:[id number] (405) TSH within normal limits. Reflex testing not required. Ordering Provider: ANKIT FLORES Report Released Date/Time: Nov 07, 2023 03:20 PM Reporting Lab: [facility] [address] [facility] [address] Performing Lab: [facility] [address] [facility] [address] TSH 1.16 u[IU]/mL 0.35-5.00 Nov 07, 2023 03:36 PM [facility] CRP(INFLAMMATORY) Specimen Type: PLASMA Comment: , Tests performed on Tan [employer] [place] SN:[id number] (405) Ordering Provider: ANKIT FLORES Report Released Date/Time: Nov 07, 2023 03:20 PM Reporting Lab: [place] [facility] [address] [place] [facility] [place] [facility] [place] [address] Performing Lab: [facility] [address] [place] [facility] [place] [address] CRP(INFLAMMATO RY) 19.4 mg/L H 0.0-5.0 Nov 07, 2023 03:36 PM [facility] LIVER PROFILE Specimen Type: PLASMA Comment: , Tests performed on Tan [employer] [place] SN:[id number] (405) Ordering Provider: ANKIT FLORES Report Released Date/Time: Nov 07, 2023 03:20 PM Reporting Lab: [facility] [address] [facility] [address] Performing Lab: [facility] [address] [facility] [address] PROTEIN, TOTAL 7.1 g/dL 6.0-8.5 ALBUMIN 4.1 g/dL 3.2-5.0 BILIRUBIN, TOTAL 0.3 mg/dL 0.2-1.2 ALKALINE PHOSPHATASE 74 U/L 40-150 ALT(SGPT) 22 U/L 7-52 AST(SGOT) 20 U/L 5-34 FIB-4 SCORE 1.10 <2.67 Nov 07, 2023 03:36 PM [facility] CBC NO DIFF Specimen Type: BLOOD No comment entered. Ordering Provider: ANKIT FLORES Report Released Date/Time: Nov 07, 2023 03:20 PM Reporting Lab: [facility] [address] [facility] [facility] [address] Performing Lab: [facility] [address] [facility] [address] WBC 5.9 10*3/uL 4.5-11.0 RBC 4.22 10*6/uL 3.93-5.16 HGB 11.6 g/dL L 12-15.2 HEMATOCRIT 34.6 L 36.6-45.6 MCV 82.0 fL 82-99 MCH 27.5 pg 26.2-32.6 MCHC 33.5 g/dL 30.8-35.1 PLT 224 10*3/uL 140-360 MPV 9.8 fL 9.2-12.4 RDW 13.2 12.0-16.0 Nov 07, 2023 03:36 PM [facility] P4 GLU,BUN,CREAT,LYTES,CA Specimen Type: PLASMA Comment: , Tests performed on myAchy [place] SN:[id number] (438) Ordering Provider: ANKIT FLORES Report Released Date/Time: Nov 07, 2023 03:20 PM Reporting Lab: [facility] [address] [facility] [address] Performing Lab: [facility] [address] [facility] [address] UREA NITROGEN 14 mg/dL 7-25 SODIUM 134 mmol/L L 135-145 POTASSIUM 4.6 mmol/L 3.5-5.0 CHLORIDE 102 mmol/L 100-110 CARBON DIOXIDE 24 mmol/L 20-30 ANION GAP 8 4-16 GLUCOSE 109 mg/dL H 65-100 CREATININE 1.21 mg/dL 0.50-1.50 CALCIUM 10.1 mg/dL 8.5-10.5 eGFR(CKD-EPI 2020) 52 L Nov 05, 2023 10:46 AM [facility] TSH Specimen Type: SERUM No comment entered. Ordering Provider: ELMER RO Report Released Date/Time: Nov 02, 2023 09:03 AM Reporting Lab: [address] [address] Performing Lab: [address] [address] TSH 2.22 u[IU]/mL 0.35-5.00 Nov 05, 2023 10:46 AM [facility] BASIC METABOLIC PANEL (fasting) Specime n Type: SERUM No comment entered. Ordering Provider: ELMER RO Report Released Date/Time: Nov 02, 2023 09:03 AM Reporting Lab: [address] [address] Performing Lab: [address] [address] UREA NITROGEN 16 mg/dL 7-25 GLUCOSE 113 mg/dL H 65-100 SODIUM 134 mmol/L L 135-145 POTASSIUM 4.8 mmol/L 3.5-5.0 CHLORIDE 103 mmol/L 100-110 CO2 24 meq/L 20-30 CREATININE, Serum 1.24 mg/dL 0.50-1.40 eGFR(CKD-EPI 2020) 50 mL/min L >60 Nov 05, 2023 10:46 AM [facility] CBC AND DIFF (AUTO) Specimen Type: BLOOD No comment entered. Ordering Provider: ELMER RO Report Released Date/Time: Nov 02, 2023 09:03 AM Reporting Lab: [address] [address] Performing Lab: [address] [address] WBC 4.11 10*3/uL L 4.50-11.00 RBC 4.34 [...] 10*3/uL 0.00-0.00 Nov 05, 2023 10:46 AM [facility] LIPID PANEL FASTING Specimen Type: SERUM No comment entered. Ordering Provider: ADIA BERMUDEZ Report Released Date/Time: Oct 29, 2023 05:02 PM Reporting Lab: [address] [address] Performing Lab: [address] [address] CHOLESTEROL 224 mg/dL H TRIGLYCERIDE 158 mg/dL H 0-150 LDL calculated 136 mg/dL H 0-129 CHOL/HDL 4.0 HDL CHOLESTEROL 56 mg/dL 40-60 Nov 05, 2023 10:46 AM [facility] GLUCOSE FASTING Specimen Type: SERUM No comment entered. Ordering Provider: RHYS TAN Report Released Date/Time: Oct 18, 2023 12:52 PM Reporting Lab: [address] [address] Performing Lab: [address] [place] [address] GLUCOSE 115 mg/dL H 65-100 Nov 05, 2023 10:46 AM [facility] HEMOGLOBIN A1C PANEL Specimen Type: BLOOD Comment: [...] Oct 18, 2023 12:52 PM Reporting Lab: [address] [address] Performing Lab: [address] [address] HEMOGLOBIN A1C 5.9 H 4.0-5.6 Nov 05, 2023 10:46 AM [facility] LIVER FUNCTION Specimen Type: SERUM No comment entered. Ordering Provider: RHYS TAN Report Released Date/Time: Oct 18, 2023 12:52 PM Reporting Lab: [address] [address] Performing Lab: [address] [address] PROTEIN,TOTAL 7.0 g/dL 6.0-8.3 ALBUMIN 4.3 g/dL [...] 11, 2022 02:50 PM VA-TOBACCO NEVER USED [facility] Tobacco Use History This section includes a history of the smoking, or tobacco-related health factors, that were collected on or before the date of the Encounter. The data comes from the [place] facility where the Encounter took place. Date/Time Smoking Status/Tobacco Use Comment F acility Dec 05, 2019 01:53 PM VA-TOBACCO NEVER USED [facility] May 26, 2016 02:32 PM LIFETIME NON-TOBACCO USER [facility] Radiology Reports: +/- 30 days of the [...] AM KNEE 3 VIEWS (RIGHT): INDY KU [id number] -[id number] F Exm Date: NOV 16, 2023@10:34 Req Phys: ELMER RO F Pat Loc: CWM/SO/PACT EIGHT WH (Req'g Lo Img Loc: [facility] Service: [place] [address] (Case [id number] COMPLETE) KNEE 3 VIEWS (RIGHT) (RAD Detailed) CPT:47760 Reason for Study: right knee pain and decreased rom, s/p fall Clinical History: h/o tkr Report Status: Verified Date Reported: NOV 16, 2023 Date Verified: NOV 16, 2023 Business Systems Analyst E-Sig:/ES/LOLA NUNEZ JR Report: Study: AP [...] Primary Interpreting Staff: LOLA NUNEZ JR, Radiologist (Business Systems Analyst) /LOLA RODRIGUEZ JR [facility] Nov 16, 2023 10:07 AM KIDNEY AND BLADDER ULTRASOUND: INDY KU [id number] -1965 F Exm Date: NOV 16, 2023@10:07 Req Phys: ELMER RO Pat Loc: CWM/SO/PACT EIGHT WH (Req'g Lo Img Loc: ULTRASOUND Service: [place] [address] (Case [id number] COMPLETE) ULTRASOUND KIDNEYS (US Detailed) CPT:06984 Reason for Study: DROPPING IN GFR (Case [id number] COMPLETE) ULTRASOUND URINARY BLADDER (US Detailed) CPT:09194 Clinical History: Report Status: Verified Date Reported: [...] Primary Interpreting Staff: LOLA NUNEZ JR, Radiologist (Business Systems Analyst) /LOLA RODRIGUEZ JR [facility] Encounter Notes: All associated encounter notes This section contains the clinical notes associated to the Encounter. Date/Time Encounter Note(s) Provider Source Nov 09, 2023 01:24 PM PREVENTIVE MEDICIN E NURSING NOTE: LOCAL TITLE: CLINICAL REMINDERS/NURSING STANDARD TITLE: PREVENTIVE MEDICINE NURSING NOTE DATE OF NOTE: NOV 09, 2023@13:24 ENTRY DATE: NOV 09, 2023@13:24:51 AUTHOR: MIGUEL MOLINA EXP COSIGNER: URGENCY: STATUS: COMPLETED recieved diagnosis of kidney disease at yesterday's appointment with Dr. Tan in [place]. would like to speak with PCP about reminders before making a decision. states that she will schedule flu and covid vaccine when she is ready. /farhan/ MIGUEL MOLINA LPN LPN Signed: 11/09/2023 13:27 MIGUEL MOLINA [facility]
--- OUTSIDE RECORDS SUMMARY | 2024-03-10 09:23 | XMS_ITS | Encounter Summary ---
Author Name [facility] [place] Organization [facility] [place] Address [address] [place] [address] Care Team Providers Care Issuer Name Role Phone GARRETT GOOD Primary Care [...] Boykin's Name Patient's Relationship to Policy [facility] Oct 06, 2018 HMO [id number] [phone] MEREDITH KU NN PATIENT ANTHEM BCBS CT FEDERAL PREFERRED PROVIDER ORGANIZAT ION (PPO) BASIC FAMIL Y Jan 31, 2015 [id number] [id number] MEREDITH KU NN PATIENT ANTHEM BCBS OF CT (BLUECARD) HIGH DEDUCTIBL E HEALTH PLAN CLINI [facility] & SUP HDHP Oct 06, 2018 [id number] MEREDITH KU NN PATIENT BCBS [place] HIGH DEDUCTIBL E HEALTH PLAN CLINI [facility] AND [place]LA[place] HDHP Oct 06, 2018 [id number] MEREDITH KU NN PATIENT BCBS OF [place] HIGH DEDUCTIBL E HEALTH PLAN CLINI CHRISTINE SUPP HDHP Oct 06, [id number] [phone] DELUISITOLY NN PATIENT BCBS OF [place]/[facility] CE ORGANIZ CLINI CHRISTINE AND SUPPO RT Oct 06, [id number] DEMEREDITH JORGE NN PATIENT BCBS OF [facility] PREFERRED PROVIDER ORGANIZAT ION (PPO) BASIC FAMIL Y Jan 31, 2015 [id number] DEHNTAMEKALY NN PATIENT [place] FEPRX PLAN PRESCRIPT ION BCBS FEP Jan 31, 2015 [id number] ELMIRALY NN PATIENT [place]-F EP BCBS PRESCRIPT ION BCBS FEP PLAN Jan 31, 2015 [id number] ELMIRALY NN PATIENT EXPRESS SCRIPTS PRESCRIPT ION HMO Oct 06, 2018 L4TA [id number] DELUISITOLY NN PATIENT EXPRESS SCRIPTS PRESCRIPT ION CLINI [facility] SUPPO RT Sep 19, 2018 L4TA [id number] DELUISITOLY NN PATIENT EXPRESS SCRIPTS ([id number]) PRESCRIPT ION HDHP Oct 06, 2018 L4TA [id number] DEHNEHLY NN PATIENT EXPRESS SCRIPTS ([id number]) PRESCRIPT ION L4TA Oct 06, 2018 L4TA [id number] DEHNEHLY NN PATIENT EXPRESS SCRIPTS ([id number]) PRESCRIPT ION L4TA HDHP Oct 06, 2018 L4TA [id number] DELUISITOLY NN PATIENT EXPRESS SCRIPTS RX PRESCRIPT ION CLINI [facility] AND SUPPO RT Oct 06, 2018 L4TA [id number] DEHNEH,LY NN PATIENT [id number] [facility] CE ORGANIZ CLINI CHRISTINE AND SUPPO RT Oct 06, [id number] DEHNTAMEKALY NN PATIENT [id number] [facility] CE ORGANIZ CLINI CHRISTINE AND SUPPO RT Oct 06, [id number] DEHNEH,LY NN PATIENT G210 BCBS ([facility]) [facility] SUPPO RT Oct 06, 2018 [id number] DEHNEH,LY NN PATIENT G210 BCBS ([facility]) [facility] CE ORGANIZ CLINI CHRISITNE AND SUPPO RT Oct 06, [id number] DEHNEH,LY NN PATIENT MEDICARE (WNR) MEDICARE () PART A Nov 19, 2006 PART A [id number] DEHNEH,LY NN PATIENT MEDICARE (WNR) MEDICARE () PART A Nov 19, 2006 PART A [id number] DEHNEH,LY NN PATIENT MEDICARE (WNR) MEDICARE () PART B Nov 19, 2006 PART B [id number] DEHNEH,LY NN PATIENT MEDICARE (WN) MEDICARE ) PART A Nov 19, 2006 PART A [id number] DEHNEH,LY NN PATIENT MEDICARE (WNR) MEDICARE () PART A Nov 19, 2006 PART A [id number] DEHNEH,LY NN PATIENT MEDICARE (WNR) MEDICARE () PART A Nov 19, 2006 PART A [id number] DEHNEH,LY NN PATIENT MEDICARE (WNR) MEDICARE ) PART A Nov 19, 2006 PART A [id number] DEHNEH,LY NN PATIENT MEDICARE (WNR) MEDICARE () PART A Nov 19, 2006 PART A [id number] DEHNEH,LY NN PATIENT MEDICARE (WNR) MEDICARE () PART B Nov 19, 2006 PART B [id number] DEHNEH,LY NN PATIENT Selected Encounter This section includes the information on record at [place] for the Encounter. Date/Time Encounter Type Encounter Description Reason Pro vider Source Nov 14, 2023 10:40 AM Outpatient Encounter PRIMARY CARE/MEDICINE IHE Encounter Template Text not used by [place] Plan of Treatment: Future Appointments (+ 6 months) and Future Tests (+/- 45 days) The Plan of Treatment section includes future care activities for the patient from all [place] [facility] This section includes future appointments and future orders which are active, pending or scheduled. Future Appointments This section includes appointments that were scheduled to occur 6 months from the date of the Encounter, up to a maximum of 20 appointments. The data comes from all [facility]. Appointment Date/Time Appointment Type Appointme nt Facility Name Nov 15, 2023 11:00 AM AMBULATORY - REHAB MEDICIN [facility] Nov 16, 2023 10:30 AM AMBULATORY - NONE [place] [facility] [place] [facility] Nov 16, 2023 11:00 AM AMBULATORY - NONE [place] [facility] [place] [facility] Dec 04, 2023 12:00 PM AMBULATORY - MEDICINE [place] [facility] [place] [facility] Dec 27, 2023 09:30 AM AMBULATORY - MEDICINE [place] [facility] [place] [facility] Feb 05, 2024 09:30 AM AMBULATORY - MEDICINE [place] [facility] [place] [facility] Feb 22, 2024 01:00 PM AMBULATORY - MEDICINE [facility] Feb 25, 2024 01:00 PM AMBULATORY - MEDICINE [place] [facility] [place] [facility] Feb 25, 2024 03:00 PM AMBULATORY - PSYCHIATRY [facility] Mar 10, 2024 09:15 AM AMBULATORY - MEDICINE [place] [facility] [place] [facility] Mar 13, 2024 03:00 PM AMBULATORY - MEDICINE [place] [facility] [place] [facility] Apr 03, 2024 02:30 PM AMBULATORY - PSYCHIATRY [facility] Active, Pending, and Scheduled Orders This section includes a listing of several types of active, pending, and scheduled orders, including clinic medications orders, diagnostic test orders, procedure orders and consult orders; where the start date of the order is 45 days before the date of the Encounter or 45 days after the date of theEncounter. The data comes from all [facility]. Test Date/Time Test Type Test Details Facility Name Nov 08, 2023 12:00 AM Laboratory - Chemistry Order MICROALBUMIN CREATININE RATIO PANEL URINE (RANDOM) [facility] Nov 08, 2023 12:00 AM Laboratory - Chemistry Order CORTISOL (AM) BLOOD (SST-SERUM) SP [place] [facility] [place] [facility] Nov 08, 2023 12:00 AM Laboratory - Chemistry Order DEXAMETHASONE (Q) BLOOD (RED-PLAIN) SERUM SP [place] [facility] [place] [facility] Nov 09, 2023 02:02 PM Consult Order [facility]-NEPHROLOGY Cons [facility] Dec 11, 2023 12:00 AM Laboratory - Chemistry Order OCCULT BLOOD FIT X1 SCREEN (MFP ONLY) STOOL [facility]ECES [facility] Lab Results: +/- 30 days of the encounter This section includes the Chemistry and Hematology Lab Results on record with [place] for the patient. Radiology Reports and Pathology Reports are provided separately, in subsequent sections. Lab Results This section contains the Chemistry/Hematology Results that were resulted 30 days before or 30 daysafter the date of the Encounter. Date/Time Source Result Type Result - Unit Interpretation Reference Range Comment Nov 09, 2023 02:05 PM [facility] MICROALBUMIN CREATININE RATIO PANEL Spe cimen Type: URINE No comment entered. Ordering Provider: ELMER RO Report Released Date/Time: Nov 09, 2023 02:02 PM Reporting [facility] [address] [facility] [address] Performing Lab: [facility] [address] [facility] [address] MICROALBUMIN/C REATININE RATIO 9.4 mg/g 0-29.9 MICROALBUMIN,Q UANTITATIVE 2.0 mg/dL RR UNAVAIL CREATININE URINE 211.76 mg/dL Nov 08, 2023 12:07 PM [facility] MICROALBUMIN CREATININE RATIO PANEL Specimen Type: URINE No comment entered. Ordering Provider: RHYS TAN Report Released Date/Time: Nov 08, 2023 11:43 AM Reporting Lab: [facility] [address] [facility] [address] Performing Lab: [address] [address] MICROALBUMIN/C REATININE RATIO canc mg/g 0-29.9 MICROALBUMIN,Q UANTITATIVE < 0.5 mg/dL RR UNAVAIL CREATININE URINE 41.24 mg/dL Nov 07, 2023 03:36 PM [facility] CRP(INFLAMMATORY) Specimen Type: PLASMA Comment: , Tests performed on Tan SmartKem Roel SN:[id number] (405) Ordering Provider: ANKIT FLORES Report Released Date/Time: Nov 07, 2023 03:20 PM Reporting Lab: [facility] [address] [facility] [address] Performing Lab: [facility] [address] [facility] [address] CRP(INFLAMMATO RY) 19.4 mg/L H 0.0-5.0 Nov 07, 2023 03:36 PM [facility] TSH Specimen Type: SERUM Comment: , Tests performed on Tan SmartKem Roel SN:[id number] (405) TSH within normal limits. Reflex testing not required. Ordering Provider: ANKIT FLORES Report Released Date/Time: Nov 07, 2023 03:20 PM Reporting Lab: [facility] [address] [facility] [address] Performing Lab: [facility] [address] [facility] [address] TSH 1.16 u[IU]/mL 0.35-5.00 Nov 07, 2023 03:36 PM [facility] ESR(NEW) Specimen Type: BLOOD Comment: Tests performed on Alcor ISED(405) Ordering Provider: ANKIT FLORES Report Released Date/Time: Nov 07, 2023 03:20 PM Reporting Lab: [facility] [address] [facility] [address] Performing Lab: [facility] [address] [facility] [address] ESR(NEW) 13 mm/h 0-30 Nov 07, 2023 03:36 PM [facility] LIVER PROFILE Specimen Type: PLASMA Comment: , Tests performed on Tan SmartKem Roel SN:[id number] (405) Ordering Provider: ANKIT FLORES Report Released Date/Time: Nov 07, 2023 03:20 PM Reporting Lab: [facility] [address] [facility] [address] Performing Lab: [facility] [address] [facility] [address] PROTEIN, TOTAL 7.1 g/dL 6.0-8.5 ALBUMIN 4.1 [...] Reporting Lab: [facility] [address] [facility] [address] Performing Lab: [facility] [address] [facility] [address] WBC 5.9 10*3/uL 4.5-11.0 RBC 4.22 10*6/uL 3.93-5.16 HGB 11.6 g/dL L 12-15.2 HEMATOCRIT 34.6 L 36.6-45.6 MCV 82.0 fL 82-99 MCH 27.5 pg 26.2-32.6 MCHC 33.5 g/dL 30.8-35.1 PLT 224 10*3/uL 140-360 MPV 9.8 fL 9.2-12.4 RDW 13.2 12.0-16.0 Nov 07, 2023 03:36 PM [facility] P4 GLU,BUN,CREAT,LYTES,CA Specimen Type: PLASMA Comment: , Tests performed on ARX [place] SN:[id number] (470) Ordering Provider: ANKIT FLORES Report Released Date/Time: Nov 07, 2023 03:20 PM Reporting Lab: [facility] [address] [facility] [address] Performing Lab: [facility] [address] [facility] [address] UREA NITROGEN 14 mg/dL 7-25 SODIUM 134 mmol/L L 135-145 POTASSIUM 4.6 mmol/L 3.5-5.0 CHLORIDE 102 mmol/L 100-110 CARBON DIOXIDE 24 mmol/L 20-30 ANION GAP 8 4-16 GLUCOSE 109 mg/dL H 65-100 CREATININE 1.21 mg/dL 0.50-1.50 CALCIUM 10.1 mg/dL 8.5-10.5 eGFR(CKD-EPI 2020) 52 L Nov 05, 2023 10:46 AM [facility] TSH Specimen Type: SERUM No comment entered. Ordering Provider: ELMER RO Report Released Date/Time: Nov 02, 2023 09:03 AM Reporting Lab: [address] [address] Performing Lab: [address] [address] TSH 2.22 u[IU]/mL 0.35-5.00 Nov 05, 2023 10:46 AM [facility] BASIC METABOLIC PANEL (fasting) Specime n Type: SERUM No comment entered. Ordering Provider: ELMER RO Report Released Date/Time: Nov 02, 2023 09:03 AM Reporting Lab: [address] [address] Performing Lab: [address] [address] UREA NITROGEN 16 mg/dL 7-25 GLUCOSE 113 mg/dL H 65-100 SODIUM 134 mmol/L L 135-145 POTASSIUM 4.8 mmol/L 3.5-5.0 CHLORIDE 103 mmol/L 100-110 CO2 24 meq/L 20-30 CREATININE, Serum 1.24 mg/dL 0.50-1.40 eGFR(CKD-EPI 2020) 50 mL/min L >60 Nov 05, 2023 10:46 AM [facility] CBC AND DIFF (AUTO) Specimen Type: BLOOD No comment entered. Ordering Provider: ELMER RO Report Released Date/Time: Nov 02, 2023 09:03 AM Reporting Lab: [address] [address] Performing Lab: [address] [address] WBC 4.11 10*3/uL L 4.50-11.00 RBC 4.34 [...] 10*3/uL 0.00-0.00 Nov 05, 2023 10:46 AM [facility] LIPID PANEL FASTING Specimen Type: SERUM No comment entered. Ordering Provider: ADIA BERMUDEZ Report Released Date/Time: Oct 29, 2023 05:02 PM Reporting Lab: [address] [address] Performing Lab: [address] [address] CHOLESTEROL 224 mg/dL H TRIGLYCERIDE 158 mg/dL H 0-150 LDL calculated 136 mg/dL H 0-129 CHOL/HDL 4.0 HDL CHOLESTEROL 56 mg/dL 40-60 Nov 05, 2023 10:46 AM [facility] GLUCOSE FASTING Specimen Type: SERUM No comment entered. Ordering Provider: RHYS TAN Report Released Date/Time: Oct 18, 2023 12:52 PM Reporting Lab: [address] [address] Performing Lab: [address] [place] [address] GLUCOSE 115 mg/dL H 65-100 Nov 05, 2023 10:46 AM [facility] HEMOGLOBIN A1C PANEL Specimen Type: BLOOD [...] Oct 18, 2023 12:52 PM Reporting Lab: [address] [address] Performing Lab: [address] [address] HEMOGLOBIN A1C 5.9 H 4.0-5.6 Nov 05, 2023 10:46 AM [facility] LIVER FUNCTION Specimen Type: SERUM No comment entered. Ordering Provider: RHYS TAN Report Released Date/Time: Oct 18, 2023 12:52 PM Reporting Lab: [address] [address] Performing Lab: [address] [address] PROTEIN,TOTAL 7.0 g/dL 6.0-8.3 ALBUMIN 4.3 g/dL [...] 11, 2022 02:50 PM VA-TOBACCO NEVER USED [facility] Tobacco Use History This section includes a history of the smoking, or tobacco-related health factors, that were collected on or before the date of the Encounter. The data comes from the [place] facility where the Encounter took place. Date/Time Smoking Status/Tobacco Use Comment F acility Dec 05, 2019 01:53 PM VA-TOBACCO NEVER USED [facility] May 26, 2016 02:32 PM LIFETIME NON-TOBACCO USER [facility] Radiology Reports: +/- 30 days of [...] the Encounter. The data comes from all [place] treatment facilities. Date/Time Radiology Report Provider Source Nov 16, 2023 10:34 AM KNEE 3 VIEWS (RIGHT): INDY KU [id number] -[id number] F Exm Date: NOV 16, 2023@10:34 Req Phys: ELMER RO F Pat Loc: CWM/SO/PACT EIGHT WH (Req'g Lo Img Loc: [facility] Service: [place] [address] (Case [id number] COMPLETE) KNEE 3 VIEWS (RIGHT) (RAD Detailed) CPT:10169 Reason for Study: right knee pain and decreased rom, s/p fall Clinical History: h/o tkr Report Status: Verified Date Reported: NOV 16, 2023 Date Verified: NOV 16, 2023 Internal Salesperson E-Sig:/ES/LOLA NUNEZ JR Report: Study: AP weight-bearing [...] Primary Interpreting Staff: LOLA NUNEZ JR, Radiologist (Internal Salesperson) /LOLA RODRIGUEZ JR [facility] Nov 16, 2023 10:07 AM KIDNEY AND BLADDER ULTRASOUND: INDY KU [id number] -[id number] F Exm Date: NOV 16, 2023@10:07 Req Phys: ELMER RO Pat Loc: CWM/SO/PACT EIGHT WH (Req'g Lo Img Loc: ULTRASOUND Service: [place] [address] (Case [id number] COMPLETE) ULTRASOUND KIDNEYS (US Detailed) CPT:33637 Reason for Study: DROPPING IN GFR (Case [id number] COMPLETE) ULTRASOUND URINARY BLADDER (US Detailed) CPT:39045 Clinical History: Report Status: Verified Date Reported: [...] Primary Interpreting Staff: LOLA NUNEZ JR, Radiologist (Internal Salesperson) /LOLA RODRIGUEZ JR [facility] Encounter Notes: All associated encounter notes This section contains the clinical notes associated to the Encounter. Date/Time Encounter Note(s) Provider Source Nov 14, 2023 10:41 AM LETTERS: LOCAL TITLE: PATIENT LETTER (T) STANDARD TITLE: LETTERS DATE OF NOTE: NOV 14, 2023@10:41 ENTRY DATE: NOV 14, 2023@10:41:42 AUTHOR: SAM RAUSCH EXP COSIGNER: URGENCY: STATUS: COMPLETED DEPARTMENT OF [facility] Toll Free Number Primary Care Telephone Assistance can be reached at extension [phone] [facility] scheduling can be reached at extension [phone] [facility] scheduling can be reached at ext [phone] INDY KU [address] [place] [address], [id number] Date: 11/14/2023 Dear [place]: ELMIRA Thank you for choosing [facility] as your primary choice for health care. As a partner in your health care, we are attempting to contact you because we have been unsuccessful in reaching you by phone. WE ARE ATTEMPTING TO REACH YOU TO SCHEDULE A FOLLOW UP WITH YOUR PROVIDER HERE AT THE [facility] FOR [facility]OUND December. We want to assure you that we are doing everything possible to schedule veterans for their appointments. Please call us at [phone] to speak with a staff member who can assist you with SCHEDULING your appointment. Thank you for your service and we look forward to hearing from you soon. Sincerely; [facility] staff Primary Care Provider : ELMER RO M.D. [address] [place] [address] [phone] Sincerely, Your Primary Care Team [facility] [address] [address] [place] [address] [facility] [address] [place] [address] [place] [address] [phone] [facility] [address] [facility] [place] [address] [place] [address] MIRACLESAM Cummings Nov 14, 2023 10:40 AM ADMINISTRATIVE NOT E: LOCAL TITLE: ADMINISTRATIVE NOTE STANDARD TITLE: ADMINISTRATIVE NOTE DATE OF NOTE: NOV 14, 2023@10:40 ENTRY DATE: NOV 14, 2023@10:40:37 AUTHOR: SAM RAUSCH COSIGNER: URGENCY: STATUS: COMPLETED AMSA unable to reach the [place]. Left message on voicemail to contact PC to schedule appointment around January 17 per RTC. Letter sent to the . /farhan/ SAM MAGALLON Signed: 11/14/2023 10:41 SAM RAUSCH
--- OUTSIDE RECORDS SUMMARY | 2024-03-10 09:23 | XMS_ITS | Encounter Summary ---
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 Name Role Phone GARRETT GOOD Primary Care [...] Boykin's Name Patient's Relationship to Policy [facility]kin [facility] H[facility] Oct 06, 2018 HMO [id number] MEREDITH KU NN PATIENT ANTHEM BCBS CT FEDERAL PREFERRED PROVIDER ORGANIZAT ION (PPO) BASIC FAMIL Y Jan 31, 2015 [id number] MEREDITH KU NN PATIENT ANTHEM BCBS OF CT (BLUECARD) HIGH DEDUCTIBL E HEALTH PLAN CLINI [facility] & SUP HDHP Oct 06, 2018 [id number] MEREDITH KU NN PATIENT BCBS [place] HIGH DEDUCTIBL E HEALTH PLAN CLINI [facility] AND BLAKE HDHP Oct 06, 2018 [id number] [phone] MEREDITH KU NN PATIENT BCBS OF [place] HIGH DEDUCTIBL E HEALTH PLAN CLINI CHRISTINE SUPP HDHP Oct 06, [id number] DELUISITOLY NN PATIENT [place] OF [place] [facility] CE ORGANIZ CLINI CHRISTINE AND SUPPO RT Oct 06, [id number] [phone] DEMEREDITH JORGE NN PATIENT BCBS OF [facility] PREFERRED PROVIDER ORGANIZAT ION (PPO) BASIC FAMIL Y Jan 31, 2015 [id number] DEHNTAMEKALY NN PATIENT [place] FEPRX PLAN PRESCRIPT ION BCBS FEP Jan 31, 2015 [id number] ELMIRALY NN PATIENT CAREMARK-F EP BCBS PRESCRIPT ION BCBS FEP PLAN Jan 31, 2015 [id number] ELMIRALY NN PATIENT EXPRESS SCRIPTS PRESCRIPT ION HMO Oct 06, 2018 L4TA [id number] DELUISITOLY NN PATIENT EXPRESS SCRIPTS PRESCRIPT ION CLINI [facility]INE AND SUPPO RT Sep 19, 2018 L4TA [id number] DELUISITOLY NN PATIENT EXPRESS SCRIPTS ([id number]) PRESCRIPT ION HDHP Oct 06, 2018 L4TA [id number] DEHNEHLY NN PATIENT EXPRESS SCRIPTS ([id number]) PRESCRIPT ION L4TA Oct 06, 2018 L4TA [id number] DEHNEHLY NN PATIENT EXPRESS SCRIPTS ([id number]) PRESCRIPT ION L4TA HDHP Oct 06, 2018 L4TA [id number] DELUISITOLY NN PATIENT EXPRESS SCRIPTS RX PRESCRIPT ION CLINI [facility] AND SUPPO RT Oct 06, 2018 L4TA [id number] DEHNEH,LY NN PATIENT [id number] [facility] CE ORGANIZ CLINI CHRISTINE AND SUPPO RT Oct 06, [id number] DEHNTAMEKALY NN PATIENT [id number] [facility] CE ORGANIZ CLINI CHRISTINE AND SUPPO RT Oct 06, [id number] DEHNEH,LY NN PATIENT G210 BCBSM ([facility] CE ORGANIZ CLINI CHRISTINE AND SUPPO RT Oct 06, 2018 [id number] DEHNEH,LY NN PATIENT G210 BCBS (PROFESSIO NAL) [facility] MAINTENAN CE ORGANIZ CLINI CHRISTINE AND SUPPO RT Oct 06, [id number] DEHNEH,LY NN PATIENT MEDICARE (WNR) MEDICARE () PART A Nov 19, 2006 PART A [id number] DEHNEH,LY NN PATIENT MEDICARE (WNR) MEDICARE () PART A Nov 19, 2006 PART A [id number] DEHNEH,LY NN PATIENT MEDICARE (WNR) MEDICARE () PART A Nov 19, 2006 PART A [id number] DEHNEH,LY NN PATIENT MEDICARE (WNR) MEDICARE () PART A Nov 19, 2006 PART A [id number] DEHNEH,LY NN PATIENT MEDICARE (WNR) MEDICARE () PART B Nov 19, 2006 PART B [id number] DEHNEH,LY NN PATIENT MEDICARE (WNR) MEDICARE () PART A Nov 19, 2006 PART A [id number] DEHNEH,LY NN PATIENT MEDICARE (WNR) MEDICARE () PART A Nov 19, 2006 PART A [id number] [phone] DEHNEH,LY NN PATIENT MEDICARE (WNR) MEDICARE () PART A Nov 19, 2006 PART A [id number] DEHNEH,LY NN PATIENT MEDICARE (WNR) MEDICARE () PART B Nov 19, 2006 PART B [id number] [phone] DEHNEH,LY NN PATIENT Selected Encounter This section includes the information on record at [facility] for the Encounter. Date/Time Encounter Type Encounter Description Reason Pro vider Source Sep 11, 2023 12:00 AM Outpatient Encounter EVENT (HISTORICAL) IHE Encounter Template Text not used by VA Plan of Treatment: Future Appointments (+ 6 months) and Future Tests (+/- 45 days) The Plan of Treatment section includes future care activities for the patient [facility] [place] [facility] This section includes future [...] [facility] [place] [place] [facility] Oct 29, 2023 04:00 PM AMBULATORY - PSYCHIATRY [facility] Nov 07, 2023 02:15 PM AMBULATORY - MEDICINE [facility] Nov 08, 2023 11:00 AM AMBULATORY - MEDICINE [facility] [place] [place] [facility] Nov 09, 2023 01:30 PM AMBULATORY - MEDICINE [facility] Nov 15, 2023 11:00 AM AMBULATORY - [facility] [place] Nov 16, 2023 10:30 AM AMBULATORY - NONE [facility] [place] [facility] Nov 16, 2023 11:00 AM AMBULATORY - NONE [facility] [place] [facility] Dec 04, 2023 12:00 PM AMBULATORY - [place]ICINE [place] [facility] Dec 27, 2023 09:30 AM AMBULATORY - MEDICINE [place] [facility] Feb 05, 2024 09:30 AM AMBULATORY - [place]ICINE [place] [facility] Feb 22, 2024 01:00 PM AMBULATORY - MEDICINE [facility] Feb 25, 2024 01:00 PM AMBULATORY - MEDICINE [place] [facility] Feb 25, 2024 03:00 PM AMBULATORY - PSYCHIATRY [facility] Mar 10, 2024 09:15 AM AMBULATORY - MEDICINE [place] [facility] Mar 13, 2024 03:00 PM AMBULATORY - MEDICINE [place] [facility] Social History: Smoking Status (Most [...] 11, 2022 02:50 PM VA-TOBACCO NEVER USED [facility] Tobacco Use History This section includes a history of the smoking, or tobacco-related health factors, that were collected on or before the date of the Encounter. The data comes from the [place] facility where the Encounter took place. Date/Time Smoking Status/Tobacco Use Comment F acility Dec 05, 2019 01:53 PM VA-TOBACCO NEVER USED [facility] May 26, 2016 02:32 PM LIFETIME NON-TOBACCO USER [facility] Encounter Notes: All associated encounter notes This section contains the clinical notes associated to the Encounter. Date/Time Encounter Note(s) Provider Source Sep 11, 2023 12:00 AM NONVA NOTE: LOCAL TITLE: NON-VA HOSPITALIZATIONS/ER STANDARD TITLE: NONVA NOTE DATE OF NOTE: SEP 11, 2023 ENTRY DATE: NOV 14, 2023@11:46:26 AUTHOR: ARCADIO DIXON EXP COSIGNER: URGENCY: STATUS: COMPLETED VistA Imaging - Scanned Document SCANNED DOCUMENT SIGNATURE NOT REQUIRED Electronically Filed: 11/14/2023 by: ARCADIO DIXON CONVERTER SKIMMER ARCADIO DIXON [facility]
--- OUTSIDE RECORDS SUMMARY | 2024-03-10 09:24 | XMS_ITS | Encounter Summary ---
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 Lift Trimmer Name Role Phone GARRETT GOOD Primary Care [...] Member ID Insurance Provider's Telephone Number Policy Obykin's Name Patient's Relationship to Policy Boykin [facility] CE ORGANIZ HMO Oct 06, 2018 HMO [id number] MEREDITH KU NN PATIENT ANTHEM BCBS CT FEDERAL PREFERRED PROVIDER ORGANIZAT ION (PPO) BASIC FAMIL Y Jan 31, 2015 [id number] MEREDITH KU NN PATIENT ANTHEM BCBS OF CT (BLUECARD) HIGH DEDUCTIBL E HEALTH PLAN CLINI [facility]INE & SUP HDHP Oct 06, 2018 [id number] [phone] MEREDITH KU NN PATIENT BCBS [place] HIGH DEDUCTIBL E HEALTH PLAN CLINI [facility] [place] HDHP Oct 06, 2018 [id number] MEREDITH KU NN PATIENT [place] HIGH DEDUCTIBL E HEALTH PLAN CLINI CHRISTINE SUPP HDHP Oct 06, [id number] [phone] DELUISITOLY NN PATIENT BCBS OF [place] [facility] CE ORGANIZ CLINI CHRISTINE AND SUPPO RT Oct 06, [id number] DEMEREDITH JORGE NN PATIENT BCBS OF [facility] PREFERRED PROVIDER ORGANIZAT ION (PPO) BASIC FAMIL Y Jan 31, 2015 [id number] [phone] DEHNTAMEKALY NN PATIENT [place] FEPRX PLAN PRESCRIPT ION BCBS FEP Jan 31, 2015 [id number] ELMIRALY NN PATIENT CAREMARK-F EP BCBS PRESCRIPT ION BCBS FEP PLAN Jan 31, 2015 [id number] ELMIRALY NN PATIENT EXPRESS SCRIPTS PRESCRIPT ION HMO Oct 06, 2018 L4TA [id number] DELUISITOLY NN PATIENT EXPRESS SCRIPTS PRESCRIPT ION CLINI [facility] AND SUPPO RT Sep 19, 2018 L4TA [id number] DELUISITOLY NN PATIENT EXPRESS SCRIPTS ([id number]) PRESCRIPT ION HDHP Oct 06, 2018 L4TA [id number] DEHNEHLY NN PATIENT EXPRESS SCRIPTS ([id number]) PRESCRIPT ION L4TA Oct 06, 2018 L4TA [id number] DEHNEHLY NN PATIENT EXPRESS SCRIPTS ([id number]) PRESCRIPT ION L4TA HDHP Oct 06, 2018 L4TA [id number] DELUISITOLY NN PATIENT EXPRESS SCRIPTS RX PRESCRIPT ION CLINI [facility] AND SUPPO RT Oct 06, 2018 L4TA [id number] DEHNEH,LY NN PATIENT [id number] [facility] CE ORGANIZ CLINI CHRISTINE AND SUPPO RT Oct 06, [id number] DEHNTAMEKALY NN PATIENT [id number] [facility] CE ORGANIZ CLINI CHRISTINE AND SUPPO RT Oct 06, [id number] DEHNEH,LY NN PATIENT G210 BCBS ([facility] SUPPO RT Oct 06, 2018 [id number] DEHNEH,LY NN PATIENT G210 BCBS (PROFESSIO NAL) [facility] MAINTENAN CE ORGANIZ CLINI CHRISTINE AND SUPPO RT Oct 06, [id number] DEHNEH,LY NN PATIENT MEDICARE (WNR) MEDICARE () PART A Nov 19, 2006 PART A [id number] DEHNEH,LY NN PATIENT MEDICARE (WNR) MEDICARE () PART A Nov 19, 2006 PART A [id number] DEHNEH,LY NN PATIENT MEDICARE (WNR) MEDICARE () PART B Nov 19, 2006 PART B [id number] DEHNEH,LY NN PATIENT MEDICARE (WN) MEDICARE ) PART A Nov 19, 2006 PART A [id number] DEHNEH,LY NN PATIENT MEDICARE (WNR) MEDICARE () PART A Nov 19, 2006 PART A [id number] DEHNEH,LY NN PATIENT MEDICARE (WNR) MEDICARE () PART A Nov 19, 2006 PART A [id number] DEHNEH,LY NN PATIENT MEDICARE (WNR) MEDICARE ) PART A Nov 19, 2006 PART A [id number] DEHNEH,LY NN PATIENT MEDICARE (WNR) MEDICARE () PART A Nov 19, 2006 PART A [id number] DEHNEH,LY NN PATIENT MEDICARE (WNR) MEDICARE () PART B Nov 19, 2006 PART B [id number] DEHNEH,LY NN PATIENT Selected Encounter This section includes the information on record at [place] for the Encounter. Date/Time Encounter Type Encounter Description Reason Pro vider Source Nov 22, 2023 12:55 PM Outpatient Encounter PRIMARY CARE/MEDICINE IHE Encounter Template Text not used by [place] Plan of Treatment: Future Appointments (+ 6 months) and Future Tests (+/- 45 days) The Plan of Treatment section includes future care activities for the patient [facility] [place] [facility] This section includes future appointments and future orders which are active, pending or scheduled. Future Appointments This section includes appointments that were scheduled to occur 6 months from the date of the Encounter, up to a maximum of 20 appointments. The data comes from all [facility]. Appointment Date/Time Appointment Type Appointme nt Facility Name Dec 04, 2023 12:00 PM AMBULATORY - MEDICINE [place] [facility] Dec 27, 2023 09:30 AM AMBULATORY - MEDICINE [facility] [place] [place] [facility] Feb 05, 2024 09:30 AM AMBULATORY - MEDICINE [place] [facility] Feb 22, 2024 01:00 PM AMBULATORY - MEDICINE [facility] Feb 25, 2024 01:00 PM AMBULATORY - MEDICINE [facility] [place] [facility] Feb 25, 2024 03:00 PM AMBULATORY - PSYCHIATRY [facility] Mar 10, 2024 09:15 AM AMBULATORY - MEDICINE [facility] [place] [facility] Mar 13, 2024 03:00 PM AMBULATORY - MEDICINE [facility] [place] [facility] Apr 03, 2024 02:30 PM AMBULATORY - PSYCHIATRY [facility] Active, Pending, and Scheduled Orders This section includes a listing of several types of active, pending, and scheduled orders, including clinic medications orders, diagnostic test orders, procedure orders and consult orders; where the start date of the order is 45 days before the date of the Encounter or 45 days after the date of theEncounter. The data comes from all [facility]. Test Date/Time Test Type Test Details Facility Name Nov 08, 2023 12:00 AM Laboratory - Chemistry Order CORTISOL (AM) BLOOD (SST-SERUM) [facility] WSN [facility] Nov 08, 2023 12:00 AM Laboratory - Chemistry Order MICROALBUMIN CREATININE RATIO PANEL URINE (RANDOM) [facility] Nov 08, 2023 12:00 AM Laboratory - Chemistry Order DEXAMETHASONE (Q) BLOOD (RED-PLAIN) [facility] Nov 09, 2023 02:02 PM Consult Order [facility]-NEPHROLOGY Cons Offset Assistant Press Operator's [facility] Dec 11, 2023 12:00 AM Laboratory - Chemistry Order OCCULT BLOOD FIT X1 SCREEN (MFP ONLY) STO[facility] [place] Jan 01, 2024 04:51 PM Consult Order [facility]-GI GENERAL Cons Offset Assistant Press Operator's [facility] Lab Results: +/- 30 days of the encounter This section includes the Chemistry and Hematology Lab Results on record with [place] for the patient. Radiology Reports and Pathology Reports are provided separately, in subsequent sections. Lab Results This section contains the Chemistry/Hematology Results that were resulted 30 days before or 30 daysafter the date of the Encounter. Date/Time Source Result Type Result - Unit Interpretation Reference Range Comment Nov 09, 2023 02:05 PM [place] MICROALBUMIN CREATININE RATIO PANEL Spe cimen Type: URINE No comment entered. Ordering Provider: ELMER RO Report Released Date/Time: Nov 09, 2023 02:02 PM Reporting Lab: [facility] [address] [address] Performing Lab: [facility] [address] [address] MICROALBUMIN/C REATININE RATIO 9.4 mg/g 0-29.9 MICROALBUMIN,Q UANTITATIVE 2.0 mg/dL RR UNAVAIL CREATININE URINE 211.76 mg/dL Nov 08, 2023 12:07 PM [facility] MICROALBUMIN CREATININE RATIO PANEL Specimen Type: URINE No comment entered. Ordering Provider: RHYS TAN Report Released Date/Time: Nov 08, 2023 11:43 AM Reporting Lab: [facility] [address] [address] Performing Lab: [facility] [address] [address] MICROALBUMIN/C REATININE RATIO canc mg/g 0-29.9 MICROALBUMIN,Q UANTITATIVE < 0.5 mg/dL RR UNAVAIL CREATININE URINE 41.24 mg/dL Nov 07, 2023 03:36 PM [facility] CRP(INFLAMMATORY) Specimen Type: PLASMA Comment: , Tests performed on [employer] [place] SN:[id number] (405) Ordering Provider: ANKIT FLORES Report Released Date/Time: Nov 07, 2023 03:20 PM Reporting Lab: [facility] [address] [address] Performing Lab: [facility] [address] [facility] [address] CRP(INFLAMMATO RY) 19.4 mg/L H 0.0-5.0 Nov 07, 2023 03:36 PM [facility] TSH Specimen Type: SERUM Comment: , Tests performed on Tan [employer] SN:[id number] (405) TSH within normal limits. Reflex testing not required. Ordering Provider: ANKIT FLORES Report Released Date/Time: Nov 07, 2023 03:20 PM Reporting Lab: [facility] [address] [facility] [address] Performing Lab: [facility] [address] [facility] [address] TSH 1.16 u[IU]/mL 0.35-5.00 Nov 07, 2023 03:36 PM [facility] ESR(NEW) Specimen Type: BLOOD Comment: Tests performed on [employer] ISED(405) Ordering Provider: ANKIT FLORES Report Released Date/Time: Nov 07, 2023 03:20 PM Reporting Lab: [facility] [address] [facility] [address] Performing Lab: [facility] [address] [facility] [address] ESR(NEW) 13 mm/h 0-30 Nov 07, 2023 03:36 PM [facility] LIVER PROFILE Specimen Type: PLASMA Comment: , Tests performed on [employer] SN:[id number] (405) Ordering Provider: ANKIT FLORES Report Released Date/Time: Nov 07, 2023 03:20 PM Reporting Lab: [facility] [address] [facility] [address] Performing Lab: [facility] [address] [facility] [address] PROTEIN, TOTAL 7.1 g/dL 6.0-8.5 ALBUMIN 4.1 g/dL 3.2-5.0 BILIRUBIN, TOTAL 0.3 mg/dL 0.2-1.2 ALKALINE PHOSPHATASE 74 U/L 40-150 ALT(SGPT) 22 U/L 7-52 AST(SGOT) 20 U/L 5-34 FIB-4 SCORE 1.10 <2.67 Nov 07, 2023 03:36 PM [facility] CBC NO DIFF Specimen Type: BLOOD No comment entered. Ordering Provider: ANKIT FLORES Report Released Date/Time: Nov 07, 2023 03:20 PM Reporting Lab: [facility] [address] [facility] [address] Performing Lab: [facility] [address] [facility] [address] WBC 5.9 10*3/uL 4.5-11.0 RBC 4.22 10*6/uL 3.93-5.16 HGB 11.6 g/dL L 12-15.2 HEMATOCRIT 34.6 L 36.6-45.6 MCV 82.0 fL 82-99 MCH 27.5 pg 26.2-32.6 MCHC 33.5 g/dL 30.8-35.1 PLT 224 10*3/uL 140-360 MPV 9.8 fL 9.2-12.4 RDW 13.2 12.0-16.0 Nov 07, 2023 03:36 PM [facility] P4 GLU,BUN,CREAT,LYTES,CA Specimen Type: PLASMA Comment: , Tests performed on [employer] [place] SN:[id number] (264) Ordering Provider: ANKIT FLORES Report Released Date/Time: Nov 07, 2023 03:20 PM Reporting Lab: [facility] [address] [facility] [address] Performing Lab: [facility] [address] [facility] [address] UREA NITROGEN 14 mg/dL 7-25 SODIUM 134 mmol/L L 135-145 POTASSIUM 4.6 mmol/L 3.5-5.0 CHLORIDE 102 mmol/L 100-110 CARBON DIOXIDE 24 mmol/L 20-30 ANION GAP 8 4-16 GLUCOSE 109 mg/dL H 65-100 CREATININE 1.21 mg/dL 0.50-1.50 CALCIUM 10.1 mg/dL 8.5-10.5 eGFR(CKD-EPI 2020) 52 L Nov 05, 2023 10:46 AM [place] TSH Specimen Type: SERUM No comment entered. Ordering Provider: ELMER RO Report Released Date/Time: Nov 02, 2023 09:03 AM Reporting Lab: [address] [address] Performing Lab: [address] [address] TSH 2.22 u[IU]/mL 0.35-5.00 Nov 05, 2023 10:46 AM [place] BASIC METABOLIC PANEL (fasting) Specime n Type: SERUM No comment entered. Ordering Provider: ELMER RO Report Released Date/Time: Nov 02, 2023 09:03 AM Reporting Lab: [address] [address] Performing Lab: [address] [address] UREA NITROGEN 16 mg/dL 7-25 GLUCOSE 113 mg/dL H 65-100 SODIUM 134 mmol/L L 135-145 POTASSIUM 4.8 mmol/L 3.5-5.0 CHLORIDE 103 mmol/L 100-110 CO2 24 meq/L 20-30 CREATININE, Serum 1.24 mg/dL 0.50-1.40 eGFR(CKD-EPI 2020) 50 mL/min L >60 Nov 05, 2023 10:46 AM [place] CBC AND DIFF (AUTO) Specimen Type: BLOOD No comment entered. Ordering Provider: ELMER RO Report Released Date/Time: Nov 02, 2023 09:03 AM Reporting Lab: [address] [address] Performing Lab: [address] [address] WBC 4.11 10*3/uL L 4.50-11.00 RBC 4.34 [...] 10*3/uL 0.00-0.00 Nov 05, 2023 10:46 AM [place] LIPID PANEL FASTING Specimen Type: SERUM No comment entered. Ordering Provider: ADIA BERMUDEZ Report Released Date/Time: Oct 29, 2023 05:02 PM Reporting Lab: [address] [address] Performing Lab: [address] [address] CHOLESTEROL 224 mg/dL H TRIGLYCERIDE 158 mg/dL H 0-150 LDL calculated 136 mg/dL H 0-129 CHOL/HDL 4.0 HDL CHOLESTEROL 56 mg/dL 40-60 Nov 05, 2023 10:46 AM [facility] GLUCOSE FASTING Specimen Type: SERUM No comment entered. Ordering Provider: RHYS TAN Report Released Date/Time: Oct 18, 2023 12:52 PM Reporting Lab: [address] [address] Performing Lab: [address] [address] GLUCOSE 115 mg/dL H 65-100 Nov 05, 2023 10:46 AM [facility] HEMOGLOBIN A1C PANEL Specimen Type: BLOOD [...] Oct 18, 2023 12:52 PM Reporting Lab: [address] [address] Performing Lab: [address] [address] HEMOGLOBIN A1C 5.9 H 4.0-5.6 Nov 05, 2023 10:46 AM [facility] LIVER FUNCTION Specimen Type: SERUM No comment entered. Ordering Provider: RHYS TAN Report Released Date/Time: Oct 18, 2023 12:52 PM Reporting Lab: [address] [address] Performing Lab: [address] [address] PROTEIN,TOTAL 7.0 g/dL 6.0-8.3 ALBUMIN 4.3 g/dL [...] 11, 2022 02:50 PM VA-TOBACCO NEVER USED [facility] Tobacco Use History This section includes a history of the smoking, or tobacco-related health factors, that were collected on or before the date of the Encounter. The data comes from the [place] facility where the Encounter took place. Date/Time Smoking Status/Tobacco Use Comment F acility Dec 05, 2019 01:53 PM VA-TOBACCO NEVER USED [facility] May 26, 2016 02:32 PM LIFETIME NON-TOBACCO USER [facility] Radiology Reports: +/- 30 days of [...] the Encounter. The data comes from all [place] treatment facilities. Date/Time Radiology Report Provider Source Nov 16, 2023 10:34 AM KNEE 3 VIEWS (RIGHT): INDY KU [id number] -[id number] F Exm Date: NOV 16, 2023@10:34 Req Phys: ELMER RO F Pat Loc: CWM/SO/PACT EIGHT WH (Req'g Lo Img Loc: [facility] 1 Service: [place] [address] (Case [id number] COMPLETE) KNEE 3 VIEWS (RIGHT) (RAD Detailed) CPT:63380 Reason for Study: right knee pain and decreased rom, s/p fall Clinical History: h/o tkr Report Status: Verified Date Reported: NOV 16, 2023 Date Verified: NOV 16, 2023 Upholstery Repairer E-Sig:/ES/LOLA NUNEZ JR Report: Study: AP weight-bearing [...] Primary Interpreting Staff: LOLA NUNEZ JR, Radiologist (Upholstery Repairer) /LOLA RODRIGUEZ JR [facility] Nov 16, 2023 10:07 AM [facility] ULTRASOUND: INDY KU [id number] -[id number] F Exm Date: NOV 16, 2023@10:07 Req Phys: ELMER RO F Pat Loc: CWM/SO/PACT EIGHT WH (Req'g Lo Img Loc: ULTRASOUND Service: [place] [address] (Case [id number] COMPLETE) ULTRASOUND KIDNEYS (US Detailed) CPT:94145 Reason for Study: DROPPING IN GFR (Case [id number] COMPLETE) ULTRASOUND URINARY BLADDER (US Detailed) CPT:52211 Clinical History: Report Status: Verified Date Reported: NOV 16, 2023 Date Verified: NOV 16, 2023 Upholstery Repairer E-Sig:/ES/LOLA NUNEZ JR Report: Study: Genitourinary ultrasound. [...] Primary Interpreting Staff: LOLA NUNEZ JR, Radiologist (Upholstery Repairer) /LOLA RODRIGUEZ JR [facility] Encounter Notes: All associated encounter notes This section contains the clinical notes associated to the Encounter. Date/Time Encounter Note(s) Provider Source Nov 22, 2023 12:55 PM PHYSICIAN NOTE: LOCAL TITLE: MD NOTE STANDARD TITLE: PHYSICIAN NOTE DATE OF NOTE: NOV 22, 2023@12:55 ENTRY DATE: NOV 22, 2023@12:55:28 AUTHOR: ELMER RO EXP COSIGNER: URGENCY: STATUS: COMPLETED I discussed with the [place] today by phone at length about the kidney ultrasound and right knee x-ray I informed the kidney ultrasound is unremarkable-she is waiting for an appointment with acetone button paster In regards to the right knee the pain is improving with ice and wearing a brace She has an appointment with DANIEL today /farhan/ ELMER RO MD PRIMARY CARE PHYSICIAN Signed: 11/22/2023 12:58 ELMER RO [place]
--- OUTSIDE RECORDS SUMMARY | 2024-03-10 09:24 | XMS_ITS | Encounter Summary ---
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 Role Phone GARRETT GOOD Primary Care [...] Patient's Relationship to Policy Boykin [facility] CE ORGANIZ HMO Oct 06, 2018 O [id number] [phone] MEREDITH KU NN PATIENT ANTHEM BCBS CT FEDERAL PREFERRED PROVIDER ORGANIZAT ION (PPO) BASIC FAMIL Y Jan 31, 2015 [id number] MEREDITH KU NN PATIENT ANTHEM BCBS OF CT (BLUECARD) HIGH DEDUCTIBL E HEALTH PLAN CLINI [facility]P HDHP Oct 06, 2018 [id number] MEREDITH KU NN PATIENT BCBS [place] HIGH DEDUCTIBL E HEALTH PLAN CLINI [facility] [place] HDHP Oct 06, 2018 [id number] [phone] MEREDITH KU NN PATIENT BCBS OF [place] HIGH DEDUCTIBL E HEALTH PLAN CLINI CHRISTINE SUPP HDHP Oct 06, 2018 [id number] ELMIRA,LY NN PATIENT BCBS OF [facility] CE ORGANIZ CLINI [facility] AND SUPPO RT Oct 06, 2018 [id number] DEHNTAMEKALY NN PATIENT BCBS OF [facility] PREFERRED PROVIDER ORGANIZAT ION (PPO) BASIC FAMIL Y Jan 31, 2015 [id number] DENEREYDATAMEKALY NN PATIENT [place] FEPRX PLAN PRESCRIPT ION BCBS FEP Jan 31, 2015 [id number] MEREDITH KU NN PATIENT [place]ARK-F EP BCBS PRESCRIPT ION BCBS FEP PLAN Jan 31, 2015 [id number] ELMIRALY NN PATIENT EXPRESS SCRIPTS PRESCRIPT ION HMO Oct 06, 2018 L4TA [id number] DELUISITOLY NN PATIENT EXPRESS SCRIPTS PRESCRIPT ION CLINI [facility] SUPPO RT Sep 19, 2018 L4TA [id number] DEHNTAMEKALY NN PATIENT EXPRESS SCRIPTS ([id number]) PRESCRIPT ION HDHP Oct 06, 2018 L4TA [id number] DEHNEH,LY NN PATIENT EXPRESS SCRIPTS ([id number]) PRESCRIPT ION L4TA Oct 06, 2018 L4TA [id number] DEHNEHLY NN PATIENT EXPRESS SCRIPTS ([id number]) PRESCRIPT ION L4TA HDHP Oct 06, 2018 L4TA [id number] DEHNTAMEKALY NN PATIENT EXPRESS SCRIPTS RX PRESCRIPT ION CLINI [facility] SUPPO RT Oct 06, 2018 L4TA [id number] DENEREYDAEH,LY NN PATIENT [id number] [facility]LY [facility] CE ORGANIZ CLINI [facility]STINE AND SUPPO RT Oct 06, 2018 [id number] MEREDITH KU NN PATIENT [id number] [facility]LY [facility] CE ORGANIZ CLINI CHRISTINE AND SUPPO RT Oct 06, 2018 [id number] DEHNEH,LY NN PATIENT G210 BCBS ([facility] SUPPO RT Oct 06, 2018 [id number] DEHNEH,LY NN PATIENT G210 BCBS ([facility]) [facility] SUPPO RT Oct 06, 2018 [id number] DEHNEH,LY NN PATIENT MEDICARE (WNR) MEDICARE () PART A Nov 19, 2006 PART A [id number] DEHNEH,LY NN PATIENT MEDICARE (WNR) MEDICARE () PART A Nov 19, 2006 PART A [id number] DEHNEH,LY NN PATIENT MEDICARE (WNR) MEDICARE () PART A Nov 19, 2006 PART A [id number] DEHNEH,LY NN PATIENT MEDICARE (WNR) MEDICARE () PART B Nov 19, 2006 PART B [id number] DEHNEH,LY NN PATIENT MEDICARE (WNR) MEDICARE () PART A Nov 19, 2006 PART A [id number] DEHNEH,LY NN PATIENT MEDICARE (WNR) MEDICARE () PART A Nov 19, 2006 PART A [id number] DEHNEH,LY NN PATIENT MEDICARE (WNR) MEDICARE () PART A Nov 19, 2006 PART A [id number] DEHNEH,LY NN PATIENT MEDICARE (WNR) MEDICARE () PART A Nov 19, 2006 PART A [id number] DEHNEH,LY NN PATIENT MEDICARE (WNR) MEDICARE () PART B Nov 19, 2006 PART B [id number] DEHNEH,LY NN PATIENT Selected Encounter This section includes the information on record at DC for the Encounter. Date/Time Encounter Type Encounter Description Reason Pro vider Source Dec 04, 2023 01:30 PM Outpatient Encounter PRIMARY CARE/MEDICINE IHE Encounter Template Text not used by [facility] Plan of Treatment: Future Appointments (+ 6 months) and Future Tests (+/- 45 days) The Plan of Treatment section includes [facility] care activities [facility] the [facility] This section includes future appointments and future orders which are active, pending or scheduled. Future Appointments This section includes appointments that were scheduled to occur 6 months from the date of the Encounter, up to a maximum of 20 appointments. The data comes from all [facility]. Appointment Date/Time Appointment Type Appointme nt Facility Name Dec 27, 2023 09:30 AM [facility] Feb 05, 2024 09:30 AM [facility] [place] [facility] Feb 22, 2024 01:00 PM AMBULATORY - MEDICINE [facility] Feb 25, 2024 01:00 PM [facility] Feb 25, 2024 03:00 PM AMBULATORY - PS[facility]CHIATRY [facility] Mar 10, 2024 09:15 AM [facility] Mar 13, 2024 03:00 PM [facility] [place] [place] [facility] Apr 03, 2024 02:30 PM AMBULATORY - PS[facility]CHIATRY [facility] Active, Pending, and Scheduled Orders This section includes a listing of several types of active, pending, and scheduled orders, including clinic medications orders, diagnostic test orders, procedure orders and consult orders; where the start date of the order is 45 days before the date of the Encounter or 45 days after the date of theEncounter. The data comes from all [facility]. Test Date/Time Test Type Test Details Facility Name Nov 08, 2023 12:00 AM Laboratory - Chemistry Order MICROALBUMIN CREATININE RATIO PANEL URINE (RANDOM) [facility] Nov 08, 2023 12:00 AM Laboratory - Chemistry Order CORTISOL (AM) BLOOD (SST-SERUM) [facility] Nov 08, 2023 12:00 AM Laboratory - Chemistry Order DEXAMETHASONE (Q) BLOOD (RED-PLAIN) SERUM [facility] Nov 09, 2023 02:02 PM Consult Order [facility] Cons [employer] [facility] Dec 11, 2023 12:00 AM Laboratory - Chemistry Order OCCULT BLOOD FIT X1 SCREEN (MFP ONLY) STO[facility]ECES SP [facility] Jan 01, 2024 04:51 PM Consult Order COMM[facility]ITY [facility] Cons Prototype [employer]in[employer] [facility] Lab Results: +/- 30 days of the encounter This section includes the Chemistry and Hematology Lab Results on record with [facility] for the patient. Radiology Reports and Pathology Reports are provided separately, in subsequent sections. Lab Results This section contains the Chemistry/Hematology Results that were resulted 30 days before or 30 daysafter the date of the Encounter. Date/Time Source Result Type Result - Unit Interpretation Reference Range Comment Nov 09, 2023 02:05 PM [facility] MICROALBUMIN CREATININE RATIO PANEL Spe cimen Type: URINE No comment entered. Ordering Provider: ELMER RO Report Released Date/Time: Nov 09, 2023 02:02 PM Reporting Lab: [facility] [address] [facility] [address] Performing Lab: [address] [address] MICROALBUMIN/C REATININE RATIO 9.4 mg/g 0-29.9 MICROALBUMIN,Q UANTITATIVE 2.0 mg/dL RR UNAVAIL CREATININE URINE 211.76 mg/dL Nov 08, 2023 12:07 PM [facility] MICROALBUMIN CREATININE RATIO PANEL Specimen Type: URINE No comment entered. Ordering Provider: RHYS TAN Report Released Date/Time: Nov 08, 2023 11:43 AM Reporting Lab: [facility] [address] [address] Performing Lab: [facility] [address] [facility] [address] MICROALBUMIN/C REATININE RATIO canc mg/g 0-29.9 MICROALBUMIN,Q UANTITATIVE < 0.5 mg/dL RR UNAVAIL CREATININE URINE 41.24 mg/dL Nov 07, 2023 03:36 PM [facility] TSH Specimen Type: SERUM Comment: , Tests performed on [employer] [place] SN:[id number] (405) TSH within normal limits. Reflex testing not required. Ordering Provider: ANKIT FLORES Report Released Date/Time: Nov 07, 2023 03:20 PM Reporting Lab: [facility] [address] [facility] [address] Performing Lab: [facility] [address] [facility] [address] TSH 1.16 u[IU]/mL 0.35-5.00 Nov 07, 2023 03:36 PM [facility] ESR(NEW) Specimen Type: BLOOD Comment: Tests performed on [employer] ISED(405) Ordering Provider: ANKIT FLORES Report Released Date/Time: Nov 07, 2023 03:20 PM Reporting Lab: [facility] [address] [facility] [address] Performing Lab: [facility] [address] [facility] [address] ESR(NEW) 13 mm/h 0-30 Nov 07, 2023 03:[address] [facility] CRP(INFLAMMATORY) Specimen Type: PLASMA Comment: , Tests performed on [facility] SN:[id number] (405) Ordering Provider: ANKIT FLORES Report Released Date/Time: Nov 07, 2023 03:20 PM Reporting Lab: [facility] [address] [facility] [address] Performing Lab: [facility] [address] [facility] [address] CRP(INFLAMMATO RY) 19.4 mg/L H 0.0-5.0 Nov 07, 2023 03:36 PM [facility] LIVER PROFILE Specimen Type: PLASMA Comment: , Tests performed on [facility] SN:[id number] (405) Ordering Provider: ANKIT FLORES Report Released Date/Time: Nov 07, 2023 03:20 PM Reporting Lab: [facility] [address] [facility] [address] Performing Lab: [facility] [address] [facility] [address] PROTEIN, TOTAL 7.1 g/dL 6.0-8.5 ALBUMIN 4.1 [...] Reporting Lab: [facility] [address] [facility] [address] Performing Lab: [facility] [address] [facility] [address] WBC 5.9 10*3/uL 4.5-11.0 RBC 4.22 10*6/uL 3.93-5.16 HGB 11.6 g/dL L 12-15.2 HEMATOCRIT 34.6 L 36.6-45.6 MCV 82.0 fL 82-99 MCH 27.5 pg 26.2-32.6 MCHC 33.5 g/dL 30.8-35.1 PLT 224 10*3/uL 140-360 MPV 9.8 fL 9.2-12.4 RDW 13.2 12.0-16.0 Nov 07, 2023 03:[address] [facility] P4 GLU,BUN,CREAT,LYTES,CA Specimen Type: PLASMA Comment: , Tests performed on [employer] [place] SN:[id number] (404) Ordering Provider: ANKIT FLORES Report Released Date/Time: Nov 07, 2023 03:20 PM Reporting Lab: [facility] [address] [facility] [address] Performing Lab: [facility] [address] [facility] [address] UREA NITROGEN 14 mg/dL 7-25 SODIUM 134 mmol/L L 135-145 POTASSIUM 4.6 mmol/L 3.5-5.0 CHLORIDE 102 mmol/L 100-110 CARBON DIOXIDE 24 mmol/L 20-30 ANION GAP 8 4-16 GLUCOSE 109 mg/dL H 65-100 CREATININE 1.21 mg/dL 0.50-1.50 CALCIUM 10.1 mg/dL 8.5-10.5 eGFR(CKD-EPI 2020) 52 L Nov 05, 2023 10:46 AM [facility] TSH Specimen Type: SERUM No comment entered. Ordering Provider: ELMER RO Report Released Date/Time: Nov 02, 2023 09:03 AM Reporting Lab: [place] [facility] [address] [address] Performing Lab: [address] [address] TSH 2.22 u[IU]/mL 0.35-5.00 Nov 05, 2023 10:46 AM [facility] BASIC METABOLIC PANEL (fasting) Specime n Type: SERUM No comment entered. Ordering Provider: ELMER RO Report Released Date/Time: Nov 02, 2023 09:03 AM Reporting Lab: [address] [address] Performing Lab: [address] [address] UREA NITROGEN 16 mg/dL 7-25 GLUCOSE 113 mg/dL H 65-100 SODIUM 134 mmol/L L 135-145 POTASSIUM 4.8 mmol/L 3.5-5.0 CHLORIDE 103 mmol/L 100-110 CO2 24 meq/L 20-30 CREATININE, Serum 1.24 mg/dL 0.50-1.40 eGFR(CKD-EPI 2020) 50 mL/min L >60 Nov 05, 2023 10:46 AM [facility] CBC AND DIFF (AUTO) Specimen Type: BLOOD No comment entered. Ordering Provider: ELMER RO Report Released Date/Time: Nov 02, 2023 09:03 AM Reporting Lab: [address] [address] Performing Lab: [address] [address] WBC 4.11 10*3/uL L 4.50-11.00 RBC 4.34 [...] 10*3/uL 0.00-0.00 Nov 05, 2023 10:46 AM [facility] LIPID PANEL FASTING Specimen Type: SERUM No comment entered. Ordering Provider: ADIA BERMUDEZ Report Released Date/Time: Oct 29, 2023 05:02 PM Reporting Lab: [facility] ThirdSpaceLearningHOLY CROSS HOSPITALJobulous [address] [address] Performing Lab: [facility] [address] [facility] [address] CHOLESTEROL 224 mg/dL H TRIGLYCERIDE 158 mg/dL H 0-150 LDL calculated 136 mg/dL H 0-129 CHOL/HDL 4.0 HDL CHOLESTEROL 56 mg/dL 40-60 Nov 05, 2023 10:46 AM [facility] GLUCOSE FASTING Specimen Type: SERUM No comment entered. Ordering Provider: RHYS TAN Report Released Date/Time: Oct 18, 2023 12:52 PM Reporting Lab: [place] [facility] ThirdSpaceLearningF[facility] [address] [facility] [address] Performing Lab: [address] [address] GLUCOSE 115 mg/dL H 65-100 Nov 05, 2023 10:46 AM [facility] saperatecGRIFFIN MEMORIAL [facility]PITAL – NORMANJobulous [facility] HEMOGLOBIN A1C PANEL Specimen Type: BLOOD [...] Oct 18, 2023 12:52 PM Reporting Lab: [facility] [address] [facility] [address] Performing Lab: [address] [address] HEMOGLOBIN A1C 5.9 H 4.0-5.6 Nov 05, 2023 10:46 AM [facility] LIVER FUNCTION Specimen Type: SERUM No comment entered. Ordering Provider: RHYS TAN Report Released Date/Time: Oct 18, 2023 12:52 PM Reporting Lab: [address] [address] Performing Lab: [address] [address] PROTEIN,TOTAL 7.0 g/dL 6.0-8.3 ALBUMIN 4.3 g/dL [...] Date/Time Current Smoking Status Comment Rory nicholas Sep 11, 2023 03:00 PM DC-TOBACCO NEVER USED [facility] Tobacco Use History This section includes a history of the smoking, or tobacco-related health factors, that were collected on or before the date of the Encounter. The data comes from the [place] facility where the Encounter took place. Date/Time Smoking Status/Tobacco Use Comment F acility Nov 22, 2020 11:00 AM VA-TOBACCO NEVER USED [facility] Jan 31, 2018 09:33 AM DC-TOBACCO NEVER USED [facility] May 10, 2017 01:08 PM LIFETIME NON-TOBACCO USER [facility] Mar 02, 2015 09:05 AM LIFETIME NON-TOBACCO USER [facility] July 10, 2001 02:49 PM LIFETIME NON-TOBACCO USER [facility] Radiology Reports: +/- 30 days of the [...] the Encounter. The data comes from all [place] treatment facilities. Date/Time Radiology Report Provider Source Nov 16, 2023 10:34 AM KNEE 3 VIEWS (RIGHT): INDY KU [id number] -[id number] F Exm Date: NOV 16, 2023@10:34 Req Phys: ELMER RO F Pat Loc: CWM/SO/PACT EIGHT WH (Req'g Lo Img Loc: [facility]BUILDING 1 Service: [place] [address] (Case [id number] COMPLETE) KNEE 3 VIEWS (RIGHT) (RAD Detailed) CPT:58173 Reason for Study: right knee pain and decreased rom, s/p fall Clinical History: h/o tkr Report Status: Verified Date Reported: NOV 16, 2023 Date Verified: NOV 16, 2023 Plug Saw Operator E-Sig:/ES/LOLA NUNEZ JR Report: Study: AP [...] Primary Interpreting Staff: LOLA NUNEZ JR, Radiologist (Plug Saw Operator) /LOLA RODRIGUEZ JR [facility] Nov 16, 2023 10:07 AM KIDNEY AND BLADDER ULTRASOUND: INDY KU [id number] -[id number] F Exm Date: NOV 16, 2023@10:07 Req Phys: VARGHESELORETTAYessyELMER Day Pat Loc: CWM/SO/PACT EIGHT WH (Req'g Lo Img Loc: ULTRASOUND Service: [place] [address] (Case [id number] COMPLETE) ULTRASOUND KIDNEYS (US Detailed) CPT:54831 Reason for Study: DROPPING IN GFR (Case [id number] COMPLETE) ULTRASOUND URINARY BLADDER (US Detailed) CPT:58562 Clinical History: Report Status: Verified Date Reported: NOV 16, 2023 Date Verified: NOV 16, 2023 Plug Saw Operator E-Sig:/ES/LOLA NUNEZ JR Report: Study: Genitourinary [...] Primary Interpreting Staff: LOLA NUNEZ JR, Radiologist (Plug Saw Operator) /LOLA RODRIGUEZ JR [facility] Encounter Notes: All associated encounter notes This section contains the clinical notes associated to the Encounter. Date/Time Encounter Note(s) Provider Source Nov 22, 2023 10:39 AM ADMINISTRATIVE NOT E: LOCAL TITLE: ADMINISTRATIVE NOTE STANDARD TITLE: ADMINISTRATIVE NOTE DATE OF NOTE: NOV 22, 2023@10:39 ENTRY DATE: NOV 22, 2023@10:39:57 AUTHOR: SAM RAUSCH EXP COSIGNER: URGENCY: STATUS: COMPLETED AMSA spoke with the [place]. requested appt on 12/04/23 be moved to december. Appt rescheduled to 01/16/24 @ 1430 /es/ SAM MAGALLON Signed: 11/22/2023 10:41 SAM RAUSCH [facility]
--- OUTSIDE RECORDS SUMMARY | 2024-03-10 09:24 | XMS_ITS | Encounter Summary ---
Author Name [facility] [place] Address [address] [place] [address] Care Team Providers Care Broaching Machine Repairer Name Role Phone GARRETT GOOD Primary Care [...] Boykin's Name Patient's Relationship to Policy [facility] Oct 06, 2018 HMO [id number] MEREDITH TRENT NN PATIENT ANTHEM BCBS CT FEDERAL PREFERRED PROVIDER ORGANIZAT ION (PPO) BASIC FAMIL Y Jan 31, 2015 [id number] MEREDITH TRENT NN PATIENT ANTHEM BCBS OF CT (BLUECARD) HIGH DEDUCTIBL E HEALTH PLAN CLINI [facility] & SUP HDHP Oct 06, 2018 [id number] MEREDITH TRENT NN PATIENT BCBS [place] HIGH DEDUCTIBL E HEALTH PLAN CLINI [facility] [place] HDHP Oct 06, 2018 [id number] MEREDITH TRENT NN PATIENT BCBS OF [place] HIGH DEDUCTIBL E HEALTH PLAN CLINI CHRISTINE SUPP HDHP Oct 06, [id number] DELUISITOLY NN PATIENT BCBS OF [place]/dbTwang [facility] CE ORGANIZ CLINI CH[facility]STINE AND SUPPO RT Oct 06, [id number] DEMEREDITH JORGE NN PATIENT BCBS OF [facility] PREFERRED PROVIDER ORGANIZAT ION (PPO) BASIC FAMIL Y Jan 31, 2015 [id number] DEHNTAMEKALY NN PATIENT [place] FEPRX PLAN PRESCRIPT ION BCBS FEP Jan 31, 2015 [id number] ELMIRALY NN PATIENT [place]-F EP BCBS PRESCRIPT ION BCBS FEP PLAN Jan 31, 2015 [id number] ELMIRALY NN PATIENT EXPRESS SCRIPTS PRESCRIPT ION HMO Oct 06, 2018 L4TA [id number] DELUISITOLY NN PATIENT EXPRESS SCRIPTS PRESCRIPT ION CLINI [facility] SUPPO RT Sep 19, 2018 L4TA [id number] DELUISITOLY NN PATIENT EXPRESS SCRIPTS ([id number]) PRESCRIPT ION HDHP Oct 06, 2018 L4TA [id number] DEHNEHLY NN PATIENT EXPRESS SCRIPTS ([id number]) PRESCRIPT ION L4TA Oct 06, 2018 L4TA [id number] DEHNEHLY NN PATIENT EXPRESS SCRIPTS ([id number]) PRESCRIPT ION L4TA HDHP Oct 06, 2018 L4TA [id number] DELUISITOLY NN PATIENT EXPRESS SCRIPTS RX PRESCRIPT ION CLINI [facility] SUPPO RT Oct 06, 2018 L4TA [id number] DEHNEH,LY NN PATIENT [id number] [facility] CE ORGANIZ CLINI CHRSITINE AND SUPPO RT Oct 06, [id number] DEHNTAMEKALY NN PATIENT [id number] [facility] CE ORGANIZ CLINI [facility] AND SUPPO RT Oct 06, [id number] DEHNEH,LY NN PATIENT G210 BCBS ([facility] SUPPO RT Oct 06, 2018 [id number] DEHNEH,LY NN PATIENT G210 BCBS ([facility]) [facility] CE ORGANIZ CLINI [facility]STINE AND SUPPO RT Oct 06, [id number] DEHNEH,LY NN PATIENT MEDICARE (WNR) MEDICARE () PART A Nov 19, 2006 PART A [id number] DEHNEH,LY NN PATIENT MEDICARE (WNR) MEDICARE () PART A Nov 19, 2006 PART A [id number] DEHNEH,LY NN PATIENT MEDICARE (WNR) MEDICARE () PART A Nov 19, 2006 PART A [id number] DEHNEH,LY NN PATIENT MEDICARE (WNR) MEDICARE ) PART A Nov 19, 2006 PART A [id number] DEHNEH,LY NN PATIENT MEDICARE (WNR) MEDICARE () PART B Nov 19, 2006 PART B [id number] DEHNEH,LY NN PATIENT MEDICARE (WNR) MEDICARE () PART A Nov 19, 2006 PART A [id number] DEHNEH,LY NN PATIENT MEDICARE (WNR) MEDICARE () PART A Nov 19, 2006 PART A [id number] DEHNEH,LY NN PATIENT MEDICARE (WNR) MEDICARE () PART A Nov 19, 2006 PART A [id number] DEHNEH,LY NN PATIENT MEDICARE (WNR) MEDICARE () PART B Nov 19, 2006 PART B [id number] [phone] DEHNEH,LY NN PATIENT Selected Encounter This section includes the information on record at [place] for the Encounter. Date/Time Encounter Type Encounter Description Reason Provider Source Nov 15, 2023 01:02 PM Outpatient Encounter PRIMARY CARE/MEDICINE DYLAN LING Encounter Template Text not used by [facility] Plan of Treatment: Future Appointments (+ 6 months) and Future Tests (+/- 45 days) The Plan of Treatment section includes future care activities for the [facility] from [facility] [place] [facility] This section includes future appointments and future orders which are active, pending or scheduled. Future Appointments This section includes appointments that were scheduled to occur 6 months from the date of the Encounter, up to a maximum of 20 appointments. The data comes from all [facility]. Appointment Date/Time Appointment Type Appointme nt Facility Name Nov 16, 2023 10:30 AM AMBULATORY - NONE [facility] [place] [facility] Nov 16, 2023 11:00 AM AMBULATORY - NONE [facility] [place] [facility] Dec 04, 2023 12:00 PM AMBULATORY - MEDICINE [facility] [place] [facility] Dec 27, 2023 09:30 AM AMBULATORY - [place]ICINE [facility] [place] [facility] Feb 05, 2024 09:30 AM AMBULATORY - [place]ICINE [facility] [place] [facility] Feb 22, 2024 01:00 PM AMBULATORY - MEDICINE [facility] Feb 25, 2024 01:00 PM AMBULATORY - MEDICINE [facility] [place] [facility] Feb 25, 2024 03:00 PM AMBULATORY - PSYCHIATRY [facility] Mar 10, 2024 09:15 AM AMBULATORY - MEDICINE [facility] [place] [facility] Mar 13, 2024 03:00 PM AMBULATORY - [place]ICINE [facility] [place] [facility] Apr 03, 2024 02:30 PM AMBULATORY [...] of theEncounter. The data comes from all [facility]. Test Date/Time Test Type Test Details Facility Name Nov 08, 2023 12:00 AM Laboratory - Chemistry Order CORTISOL (AM) BLOOD (SST-SERUM) [facility] Nov 08, 2023 12:00 AM Laboratory - Chemistry Order MICROALBUMIN CREATININE RATIO PANEL URINE (RANDOM) [facility] Nov 08, 2023 12:00 AM Laboratory - Chemistry Order DEXAMETHASONE (Q) BLOOD (RED-PLAIN) SERUM SP [facility] [place] [facility] Nov 09, 2023 02:02 PM Consult Order [facility]-NEPHROLOGY Cons Controlled Atmospheric [employer] [facility] Dec 11, 2023 12:00 AM Laboratory - Chemistry Order OCCULT BLOOD FIT X1 SCREEN (MFP ONLY) STOOL FECES SP [facility] Lab Results: +/- 30 days of the [...] Range Comment Nov 09, 2023 02:05 PM [facility] MICROALBUMIN CREATININE RATIO PANEL Spe cimen Type: URINE No comment entered. Ordering Provider: ELMER RO Report Released Date/Time: Nov 09, 2023 02:02 PM Reporting Lab: [facility] [address] [facility] [address] Performing Lab: [facility] [address] [facility] [address] MICROALBUMIN/C REATININE RATIO 9.4 mg/g 0-29.9 MICROALBUMIN,Q UANTITATIVE 2.0 mg/dL RR UNAVAIL CREATININE URINE 211.76 mg/dL Nov 08, 2023 12:07 PM [facility] MICROALBUMIN CREATININE RATIO PANEL Specimen Type: URINE No comment entered. Ordering Provider: RHYS TAN Report Released Date/Time: Nov 08, 2023 11:43 AM Reporting Lab: [facility] [address] [facility] [address] Performing Lab: [facility] [address] [facility] [address] MICROALBUMIN/C REATININE RATIO canc mg/g 0-29.9 MICROALBUMIN,Q UANTITATIVE < 0.5 mg/dL RR UNAVAIL CREATININE URINE 41.24 mg/dL Nov 07, 2023 03:[address] [facility] ESR(NEW) Specimen Type: BLOOD Comment: Tests performed on [employer] ISED(405) Ordering Provider: ANKIT FLORES Report Released Date/Time: Nov 07, 2023 03:20 PM Reporting Lab: [facility] [address] [facility] [address] Performing Lab: [facility] [address] [facility] [address] ESR(NEW) 13 mm/h 0-30 Nov 07, 2023 03:36 PM [facility] TSH Specimen Type: SERUM Comment: , Tests performed on Tan [employer] [place] SN:[id number] (405) TSH within normal limits. Reflex testing not required. Ordering Provider: ANKIT FLORES Report Released Date/Time: Nov 07, 2023 03:20 PM Reporting Lab: [facility] [address] [facility] [address] Performing Lab: [facility] [address] [facility] [address] TSH 1.16 u[IU]/mL 0.35-5.00 Nov 07, 2023 03:36 PM [facility] CRP(INFLAMMATORY) Specimen Type: PLASMA Comment: , Tests performed on Tan [employer] SN:[id number] (405) Ordering Provider: ANKIT FLORES Report Released Date/Time: Nov 07, 2023 03:20 PM Reporting Lab: [facility] [address] [facility] [address] Performing Lab: [facility] [address] [facility] [address] CRP(INFLAMMATO RY) 19.4 mg/L H 0.0-5.0 Nov 07, 2023 03:[address] [facility] LIVER PROFILE Specimen Type: PLASMA Comment: , Tests performed on [employer] SN:[id number] (405) Ordering Provider: ANKIT FLORES Report Released Date/Time: Nov 07, 2023 03:20 PM Reporting Lab: [facility] [address] [facility] [address] Performing Lab: [facility] [address] [facility] [address] PROTEIN, TOTAL 7.1 g/dL 6.0-8.5 ALBUMIN 4.1 g/dL 3.2-5.0 BILIRUBIN, TOTAL 0.3 mg/dL 0.2-1.2 ALKALINE PHOSPHATASE 74 U/L 40-150 ALT(SGPT) 22 U/L 7-52 AST(SGOT) 20 U/L 5-34 FIB-4 SCORE 1.10 <2.67 Nov 07, 2023 03:36 PM [facility] CBC NO DIFF Specimen Type: BLOOD No comment entered. Ordering Provider: ANKIT FLORES Report Released Date/Time: Nov 07, 2023 03:20 PM Reporting Lab: [facility] [address] [facility] [address] Performing Lab: [facility] [address] [facility] [address] WBC 5.9 10*3/uL 4.5-11.0 RBC 4.22 10*6/uL 3.93-5.16 HGB 11.6 g/dL L 12-15.2 HEMATOCRIT 34.6 L 36.6-45.6 MCV 82.0 fL 82-99 MCH 27.5 pg 26.2-32.6 MCHC 33.5 g/dL 30.8-35.1 PLT 224 10*3/uL 140-360 MPV 9.8 fL 9.2-12.4 RDW 13.2 12.0-16.0 Nov 07, 2023 03:36 PM [facility] P4 GLU,BUN,CREAT,LYTES,CA Specimen Type: PLASMA Comment: , Tests performed on [employer] [place] SN:[id number] (405) Ordering Provider: ANKIT FLORES Report Released Date/Time: Nov 07, 2023 03:20 PM Reporting Lab: [facility] [address] [facility] [address] Performing Lab: [facility] [address] [facility] [address] UREA NITROGEN 14 mg/dL 7-25 SODIUM 134 mmol/L L 135-145 POTASSIUM 4.6 mmol/L 3.5-5.0 CHLORIDE 102 mmol/L 100-110 CARBON DIOXIDE 24 mmol/L 20-30 ANION GAP 8 4-16 GLUCOSE 109 mg/dL H 65-100 CREATININE 1.21 mg/dL 0.50-1.50 CALCIUM 10.1 mg/dL 8.5-10.5 eGFR(CKD-EPI 2020) 52 L Nov 05, 2023 10:46 AM [facility] TSH Specimen Type: SERUM No comment entered. Ordering Provider: ELMER RO Report Released Date/Time: Nov 02, 2023 09:03 AM Reporting Lab: [address] [address] Performing Lab: [address] [address] TSH 2.22 u[IU]/mL 0.35-5.00 Nov 05, 2023 10:46 AM [facility] BASIC METABOLIC PANEL (fasting) Specime n Type: SERUM No comment entered. Ordering Provider: ELMER RO Report Released Date/Time: Nov 02, 2023 09:03 AM Reporting Lab: [address] [address] Performing Lab: [address] [address] UREA NITROGEN 16 mg/dL 7-25 GLUCOSE 113 mg/dL H 65-100 SODIUM 134 mmol/L L 135-145 POTASSIUM 4.8 mmol/L 3.5-5.0 CHLORIDE 103 mmol/L 100-110 CO2 24 meq/L 20-30 CREATININE, Serum 1.24 mg/dL 0.50-1.40 eGFR(CKD-EPI 2020) 50 mL/min L >60 Nov 05, 2023 10:46 AM [facility] CBC AND DIFF (AUTO) Specimen Type: BLOOD No comment entered. Ordering Provider: ELMER RO Report Released Date/Time: Nov 02, 2023 09:03 AM Reporting Lab: [address] [address] Performing Lab: [address] [address] WBC 4.11 10*3/uL L 4.50-11.00 RBC 4.34 [...] 10*3/uL 0.00-0.00 Nov 05, 2023 10:46 AM [facility] LIPID PANEL FASTING Specimen Type: SERUM No comment entered. Ordering Provider: ADIA BERMUDEZ Report Released Date/Time: Oct 29, 2023 05:02 PM Reporting Lab: [facility] [address] [facility] [address] Performing Lab: [address] [address] CHOLESTEROL 224 mg/dL H TRIGLYCERIDE 158 mg/dL H 0-150 LDL calculated 136 mg/dL H 0-129 CHOL/HDL 4.0 HDL CHOLESTEROL 56 mg/dL 40-60 Nov 05, 2023 10:46 AM [facility] GLUCOSE FASTING Specimen Type: SERUM No comment entered. Ordering Provider: RHYS TAN Report Released Date/Time: Oct 18, 2023 12:52 PM Reporting Lab: [facility] [address] [facility] [address] Performing Lab: [address] [address] GLUCOSE 115 mg/dL H 65-100 Nov 05, 2023 10:46 AM [facility] HEMOGLOBIN A1C PANEL Specimen Type: BLOOD [...] Oct 18, 2023 12:52 PM Reporting Lab: [address] [address] Performing Lab: [address] [address] HEMOGLOBIN A1C 5.9 H 4.0-5.6 Nov 05, 2023 10:46 AM [facility] LIVER FUNCTION Specimen Type: SERUM No comment entered. Ordering Provider: RHYS TAN Report Released Date/Time: Oct 18, 2023 12:52 PM Reporting Lab: [address] [address] Performing Lab: [address] [address] PROTEIN,TOTAL 7.0 g/dL 6.0-8.3 ALBUMIN 4.3 g/dL [...] 11, 2022 02:50 PM VA-TOBACCO NEVER USED [facility] Tobacco Use History This section includes a history of the smoking, or tobacco-related health factors, that were collected on or before the date of the Encounter. The data comes from the [place] facility where the Encounter took place. Date/Time Smoking Status/Tobacco Use Comment F raysaility Dec 05, 2019 01:53 PM VA-TOBACCO NEVER USED [facility] May 26, 2016 02:32 PM LIFETIME NON-TOBACCO USER [facility] Radiology Reports: +/- 30 days of [...] AM KNEE 3 VIEWS (RIGHT): LILLIAN TRENT [id number] -1965 F Exm Date: NOV 16, 2023@10:34 Req Phys: ELMER RO F Pat Loc: CWM/SO/PACT EIGHT WH (Req'g Lo Img Loc: [facility] Service: [place] [address] (Case [id number] COMPLETE) KNEE 3 VIEWS (RIGHT) (RAD Detailed) CPT:12501 Reason for Study: right knee pain and decreased rom, s/p fall Clinical History: h/o tkr Report Status: Verified Date Reported: NOV 16, 2023 Date Verified: NOV 16, 2023 Certified Massage Therapist E-Sig:/ES/LOLA NUNEZ JR Report: Study: AP weight-bearing [...] Primary Interpreting Staff: LOLA NUNEZ JR, Radiologist (Certified Massage Therapist) /LOLA RODRIGUEZ JR [facility] Nov 16, 2023 10:07 AM KIDNEY AND BLADDER ULTRASOUND: LILLIAN TRENT [id number] -1965 F Exm Date: NOV 16, 2023@10:07 Req Phys: ELMER RO F Pat Loc: CWM/SO/PACT EIGHT WH (Req'g Lo Img Loc: ULTRASOUND Service: [place] [address] (Case [id number] COMPLETE) ULTRASOUND KIDNEYS (US Detailed) CPT:11025 Reason for Study: DROPPING IN GFR (Case [id number] COMPLETE) ULTRASOUND URINARY BLADDER (US Detailed) CPT:73995 Clinical History: Report Status: Verified Date Reported: NOV 16, 2023 Date Verified: NOV 16, 2023 Certified Massage Therapist E-Sig:/ES/LOLA NUNEZ JR Report: Study: Genitourinary ultrasound. [...] Primary Interpreting Staff: LOLA NUNEZ JR, Radiologist (Certified Massage Therapist) /LOLA RODRIGUEZ JR [facility] Encounter Notes: All associated encounter notes This section contains the clinical notes associated to the Encounter. Date/Time Encounter Note(s) Provider Source Nov 22, 2023 04:25 PM ADDENDUM: LOCAL TITLE: Addendum STANDARD TITLE: ADDENDUM DATE OF NOTE: NOV 22, 2023@16:25:06 ENTRY DATE: NOV 22, 2023@16:25:07 AUTHOR: DYLAN LING COSIGNER: URGENCY: STATUS: COMPLETED forwarding request to staff for review /farhan/ JOSE CARLOS KELLEY RN-BC REGISTERED NURSE Signed: 11/22/2023 16:25 Receipt Acknowledged By: 11/23/2023 08:03 /farhan/ CINDY ROBERT ADVANCED [employer] SYSTEMS ENGINEER ========= --- Original Document --- 11/21/23 PRIMARY CARE SECURE MESSAGING: ------Original Message -------- Sent: 11/21/2023 03:05 PM ET From: LILLIAN TRENT To: Yessy RO,_PRIMARYCARE_[facility] Subject: General:General Inquiry Shari Hernandez and DANIEL Billingsley (Francheska, who is Dr. Lala's Off Track Betting Manager) called today. They need records of [facility] right knee replacement which was completed on 2017 . They need all medical records from the ortho and physical therapy sent to Dr. Olea as soon as possible. Would you please inform the community care office at your place of work so they can begin working on this? Thank you very much Sincerely Lillian Trent /farhan/ SAM MAGALLON Signed: 11/21/2023 15:09 Receipt Acknowledged By: 11/22/2023 16:25 /farhan/ JOSE CARLOS KELLEY RN-STEVE REGISTERED NURSE 11/21/2023 16:06 /es/ RYLAND DE LEON LPN Licensed Practical Nurse DYLAN LING [facility] Nov 21, 2023 03:09 PM PRIMARY CARE SECUR E MESSAGING: LOCAL TITLE: PRIMARY CARE SECURE MESSAGING STANDARD TITLE: PRIMARY CARE SECURE MESSAGING DATE OF NOTE: NOV 21, 2023@15:09 ENTRY DATE: NOV 21, 2023@15:09:58 AUTHOR: SAM RAUSCH COSIGNER: URGENCY: STATUS: COMPLETED PRIMARY CARE SECURE MESSAGING Has ADDENDA ------Original Message -------- Sent: 11/21/2023 03:05 PM ET From: LILLIAN TRENT To: Yessy RO,_PRIMARYCARE_[facility] Subject: General:General Inquiry Shari Hernandez and DANIEL Billingsley (Francheska, who is Dr. Lala's Off Track Betting Manager) called today. They need records of [facility] right knee replacement which was completed on 2017 . They need all medical records from the ortho and physical therapy sent to Dr. Olea as soon as possible. Would you please inform the community care office at your place of work so they can begin working on this? Thank you very much Sincerely Lillian Trent /farhan/ SAM MAGALLON Signed: 11/21/2023 15:09 Receipt Acknowledged By: 11/22/2023 16:25 /farhan/ NIKI KELLEYN RN-BC REGISTERED NURSE 11/21/2023 16:06 /farhan/ RYLAND DE LEON LPN Licensed Practical Nurse 11/22/2023 ADDENDUM STATUS: COMPLETED forwarding request to CC staff for review /farhan/ JOSE CARLOS KELLEY RN-BC REGISTERED NURSE Signed: 11/22/2023 16:25 Receipt Acknowledged By: 11/23/2023 08:03 /farhan/ CINDY ROBERT ADVANCED [employer] SYSTEMS ENGINEER 11/23/2023 ADDENDUM STATUS: COMPLETED Coil Strapper refaxed surgical notes, implant notes,xray report, PT notes, ortho notes to [facility]. /farhan/ CINDY ROBERT ADVANCED [employer] SYSTEMS ENGINEER Signed: 11/23/2023 08:12 SAM RAUSCH CNTRL [facility] Nov 15, 2023 01:02 PM PRIMARY CARE SECUR E MESSAGING: LOCAL TITLE: PRIMARY CARE SECURE MESSAGING STANDARD TITLE: PRIMARY CARE SECURE MESSAGING DATE OF NOTE: NOV 15, 2023@13:02 ENTRY DATE: NOV 15, 2023@13:02:32 AUTHOR: DYLAN LING EXP COSIGNER: URGENCY: STATUS: COMPLETED ------Original Message -------- Sent: 11/15/2023 01:02 PM ET From: DYLAN LING To: LILLIAN TRENT Subject: General:General Inquiry good afternoon, Dr Ro responded to your secure message inquiry with the following information: Radiologist suggested xray of the knee be performed prior to ordering a CT scan. Dr Ro reports that she placed a community care orthopedic consult to [facility] on 11/09/2023 that is in process with community care office. They noted on the consult that [facility] will be contacting you to schedule your initial office visit. [facility] [address] [place] [address], [address] [place] [address] Dylan Madrigal RN /farhan/ NIKI KELLEYN RN-BC REGISTERED NURSE Signed: 11/15/2023 13:02 DYLAN LING [facility]
--- OUTSIDE RECORDS SUMMARY | 2024-03-10 09:24 | XMS_ITS | Encounter Summary ---
Author Name [facility] [facility] [place] Address [address] [place] [address] Care Team Providers Care Bit Sharpener Name Role Phone GARRETT GOOD Primary Care [...] Boykin's Name Patient's Relationship to Policy [facility] CE ORGANIZ HMO Oct 06, 2018 HMO [id number] [phone] MEREDITH KU NN PATIENT ANTHEM BCBS CT FEDERAL PREFERRED PROVIDER ORGANIZAT ION (PPO) BASIC FAMIL Y Jan 31, 2015 [id number] MEREDITH KU NN PATIENT ANTHEM BCBS OF CT (BLUECARD) HIGH DEDUCTIBL E HEALTH PLAN CLINI [facility] SUP HDHP Oct 06, 2018 [id number] [phone] MEREDITH KU NN PATIENT BCBS [place] HIGH DEDUCTIBL E HEALTH PLAN CLINI [facility] [place] HDHP Oct 06, 2018 [id number] [phone] MEREDITH KU NN PATIENT BCBS OF [place] HIGH DEDUCTIBL E HEALTH PLAN CLINI [facility] SUPP HDHP Oct 06, [id number] [phone] LCLUISITOLY NN PATIENT [place]BS OF [place] CE ORGANIZ CLIN[facility] AND SUPPO RT Oct 06, [id number] DELUISITOLY NN PATIENT BCBS OF [facility] PREFERRED PROVIDER ORGANIZAT ION (PPO) BASIC FAMIL Y Jan 31, 2015 [id number] DELUISITOLY NN PATIENT [place] FEPRX PLAN PRESCRIPT ION BCBS FEP Jan 31, 2015 [id number] MEREDITH KU NN PATIENT [place]-F EP BCBS PRESCRIPT ION BCBS FEP PLAN Jan 31, 2015 [id number] ELMIRALY NN PATIENT EXPRESS SCRIPTS PRESCRIPT ION HMO Oct 06, 2018 L4TA [id number] LCNEREYDATAMEKALY NN PATIENT EXPRESS SCRIPTS PRESCRIPT ION CLINI [facility] SUPPO RT Sep 19, 2018 L4TA [id number] DELUISITOLY NN PATIENT EXPRESS SCRIPTS ([id number]) PRESCRIPT ION HDHP Oct 06, 2018 L4TA [id number] DEHNTAMEKALY NN PATIENT EXPRESS SCRIPTS ([id number]) PRESCRIPT ION L4TA Oct 06, 2018 L4TA [id number] DEHNTAMEKALY NN PATIENT EXPRESS SCRIPTS ([id number]) PRESCRIPT ION L4TA HDHP Oct 06, 2018 L4TA [id number] DELUISITOLY NN PATIENT EXPRESS SCRIPTS RX PRESCRIPT ION CLINI [facility] SUPPO RT Oct 06, 2018 L4TA [id number] [phone] DELUISITO,LY NN PATIENT [id number] [facility] CE ORGANIZ CLINI [facility]INE AND SUPPO RT Oct 06, 2018 [id number] MEREDITH KU NN PATIENT [id number] [facility] CE ORGANIZ CLINI CHRISTINE AND SUPPO RT Oct 06, [id number] DEHNEH,LY NN PATIENT G210 BCBS ([facility] CE ORGANIZ CLINI CHRISTINE AND SUPPO RT Oct 06, [id number] DEHNEH,LY NN PATIENT G210 BCBS ([facility] SUPPO RT Oct 06, [id number] DEHNEH,LY NN PATIENT MEDICARE (WN) MEDICARE ) PART A Nov 19, 2006 PART A [id number] DEHNEH,LY NN PATIENT MEDICARE (WN) MEDICARE ) PART A Nov 19, 2006 PART A [id number] DEHNEH,LY NN PATIENT MEDICARE (WN) MEDICARE ) PART A Nov 19, 2006 PART A [id number] [phone] DEHNEH,LY NN PATIENT MEDICARE ([facility]) MEDICARE ) PART B Nov 19, 2006 PART B [id number] DEHNEH,LY NN PATIENT MEDICARE (WNR) MEDICARE ) PART A Nov 19, 2006 PART A [id number] DEHNEH,LY NN PATIENT MEDICARE (WN) MEDICARE ) PART A Nov 19, 2006 PART A [id number] DEHNEH,LY NN PATIENT MEDICARE (WNR) MEDICARE ) PART A Nov 19, 2006 PART A [id number] [phone] DEHNEH,LY NN PATIENT MEDICARE (WNR) MEDICARE ) PART A Nov 19, 2006 PART A [id number] DEHNEH,LY NN PATIENT MEDICARE (WNR) MEDICARE ) PART B Nov 19, 2006 PART B [id number] [phone] DEHNEH,LY NN PATIENT Selected Encounter This section includes the information on record at [place] for the Encounter. Date/Time Encounter Type Encounter Description Reason Provider Source Nov 15, 2023 11:00 AM ORTHC/PROSTC MGMT SBSQ ENC PHYSICAL THERAPY ICD-10-CM M25.561 Pain in right knee ROLF GUNDERSONE Encounter Template Text not used by [place] Assessments - Encounter Diagnoses This section includes the primary and secondary diagnoses documented for the Encounter. Date/Time Primary/Secondary Diagnosis Diagnosis Name Provider Source Nov 15, 2023 11:21 AM PRIMARY Pain in right knee ROLF GUNDERSON Plan of Treatment: Future Appointments (+ 6 months) and Future Tests (+/- 45 days) The Plan of Treatment section includes future care activities for the patient from all [place] [facility] This section includes future appointments and future orders which are active, pending or scheduled. Future Appointments This section includes appointments that were scheduled to occur 6 months from the date of the Encounter, up to a maximum of 20 appointments. The data comes from all [place] treatment [facility]. Appointment Date/Time Appointment Type Appointme nt Facility Name Nov 16, 2023 10:30 AM AMBULATORY - NONE [facility] Nov 16, 2023 11:00 AM AMBULATORY - NONE [facility] Dec 04, 2023 12:00 PM AMBULATORY - MEDICINE [facility] Dec 27, 2023 09:30 AM AMBULATORY - MEDICINE [place] [facility] Feb 05, 2024 09:30 AM AMBULATORY - MEDICINE [place] [facility] Feb 22, 2024 01:00 PM AMBULATORY - MEDICINE [facility] Feb 25, 2024 01:00 PM AMBULATORY - MEDICINE [place] [facility] Feb 25, 2024 03:00 PM AMBULATORY - PSYCHIATRY [facility] Mar 10, 2024 09:15 AM AMBULATORY - MEDICINE [place] [facility] Mar 13, 2024 03:00 PM AMBULATORY - MEDICINE [place] [facility] Apr 03, 2024 02:30 PM AMBULATORY [...] of theEncounter. The data comes from all [place] treatment [facility]. Test Date/Time Test Type Test Details Facility Name Nov 08, 2023 12:00 AM Laboratory - Chemistry Order CORTISOL (AM) BLOOD (SST-SERUM) [facility] Nov 08, 2023 12:00 AM Laboratory - Chemistry Order MICROALBUMIN CREATININE RATIO PANEL URINE (RANDOM) SP [facility] Nov 08, 2023 12:00 AM Laboratory - Chemistry Order DEXAMETHASONE (Q) BLOOD (RED-PLAIN) SERUM [facility] Nov 09, 2023 02:02 PM Consult Order [facility] Cons Retail Delivery Driver's Choice [facility] Dec 11, 2023 12:00 AM Laboratory - Chemistry Order OCCULT BLOOD FIT X1 SCREEN (MFP ONLY) STOOL [facility] Lab Results: +/- 30 days [...] Range Comment Nov 09, 2023 02:05 PM [facility] MICROALBUMIN CREATININE RATIO PANEL Spe cimen Type: URINE No comment entered. Ordering Provider: ELMER RO Report Released Date/Time: Nov 09, 2023 02:02 PM Reporting Lab: [facility] [address] [facility] [address] Performing Lab: [address] [address] MICROALBUMIN/C REATININE RATIO 9.4 mg/g 0-29.9 MICROALBUMIN,Q UANTITATIVE 2.0 mg/dL RR UNAVAIL CREATININE URINE 211.76 mg/dL Nov 08, 2023 12:07 PM [facility] MICROALBUMIN CREATININE RATIO PANEL Specimen Type: URINE No comment entered. Ordering Provider: RHYS TAN Report Released Date/Time: Nov 08, 2023 11:43 AM Reporting Lab: [facility] [address] [facility] [address] Performing Lab: [address] [address] MICROALBUMIN/C REATININE RATIO canc mg/g 0-29.9 MICROALBUMIN,Q UANTITATIVE < 0.5 mg/dL RR UNAVAIL CREATININE URINE 41.24 mg/dL Nov 07, 2023 03:36 PM [facility] TSH Specimen Type: SERUM Comment: , Tests performed on [employer] [place] SN:[id number] (405) TSH within normal limits. Reflex testing not required. Ordering Provider: ANKIT FLORES Report Released Date/Time: Nov 07, 2023 03:20 PM Reporting Lab: [facility] [address] [facility] [address] Performing Lab: [facility] [address] [facility] [address] TSH 1.16 u[IU]/mL 0.35-5.00 Nov 07, 2023 03:36 PM [facility] CRP(INFLAMMATORY) Specimen Type: PLASMA Comment: , Tests performed on [employer] SN:[id number] (405) Ordering Provider: ANKIT FLORES Report Released Date/Time: Nov 07, 2023 03:20 PM Reporting Lab: [facility] [address] [facility] [address] Performing Lab: [facility] [address] [facility] [address] CRP(INFLAMMATO RY) 19.4 mg/L H 0.0-5.0 Nov 07, 2023 03:36 PM [facility] ESR(NEW) Specimen Type: BLOOD Comment: Tests performed on [employer] ISED(405) Ordering Provider: ANKIT FLORES Report Released Date/Time: Nov 07, 2023 03:20 PM Reporting Lab: [facility] [address] [facility] [address] Performing Lab: [facility] [address] [facility] [address] ESR(NEW) 13 mm/h 0-30 Nov 07, 2023 03:36 PM [facility] LIVER PROFILE Specimen Type: PLASMA Comment: , Tests performed on [employer] SN:[id number] (405) Ordering Provider: ANKIT FLORES Report Released Date/Time: Nov 07, 2023 03:20 PM Reporting Lab: [facility] [address] [facility] [address] Performing Lab: [facility] [address] [facility] PROTEIN, TOTAL 7.1 g/dL 6.0-8.5 ALBUMIN 4.1 g/dL 3.2-5.0 BILIRUBIN, TOTAL 0.3 mg/dL 0.2-1.2 ALKALINE PHOSPHATASE 74 U/L 40-150 ALT(SGPT) 22 U/L 7-52 AST(SGOT) 20 U/L 5-34 FIB-4 SCORE 1.10 <2.67 Nov 07, 2023 03:36 PM [facility] P4 GLU,BUN,CREAT,LYTES,CA Specimen Type: PLASMA Comment: , Tests performed on [employer] SN:[id number] (280) Ordering Provider: ANKIT FLORES Report Released Date/Time: Nov 07, 2023 03:20 PM Reporting Lab: [facility] [address] [facility] Performing Lab: [facility] [address] [place] [phone] UREA NITROGEN 14 mg/dL 7-25 SODIUM 134 mmol/L L 135-145 POTASSIUM 4.6 mmol/L 3.5-5.0 CHLORIDE 102 mmol/L 100-110 CARBON DIOXIDE 24 mmol/L 20-30 ANION GAP 8 4-16 GLUCOSE 109 mg/dL H 65-100 CREATININE 1.21 mg/dL 0.50-1.50 CALCIUM 10.1 mg/dL 8.5-10.5 eGFR(CKD-EPI 2020) 52 L Nov 07, 2023 03:36 PM [facility] CBC NO DIFF Specimen Type: BLOOD No comment entered. Ordering Provider: ANKIT FLORES Report Released Date/Time: Nov 07, 2023 03:20 PM Reporting Lab: [facility] [address] [facility] [address] Performing Lab: [facility] [address] [place] [phone] WBC 5.9 10*3/uL 4.5-11.0 RBC 4.22 10*6/uL 3.93-5.16 HGB 11.6 g/dL L 12-15.2 HEMATOCRIT 34.6 L 36.6-45.6 MCV 82.0 fL 82-99 MCH 27.5 pg 26.2-32.6 MCHC 33.5 g/dL 30.8-35.1 PLT 224 10*3/uL 140-360 MPV 9.8 fL 9.2-12.4 RDW 13.2 12.0-16.0 Nov 05, 2023 10:46 AM [facility] TSH Specimen Type: SERUM No comment entered. Ordering Provider: ELMER RO Report Released Date/Time: Nov 02, 2023 09:03 AM Reporting Lab: [facility] [address] [address] Performing Lab: [facility] [address] [address] TSH 2.22 u[IU]/mL 0.35-5.00 Nov 05, 2023 10:46 AM [facility] BASIC METABOLIC PANEL (fasting) Specime n Type: SERUM No comment entered. Ordering Provider: ELMER RO Report Released Date/Time: Nov 02, 2023 09:03 AM Reporting Lab: [facility] [address] [address] Performing Lab: [facility] [address] UREA NITROGEN 16 mg/dL 7-25 GLUCOSE 113 mg/dL H 65-100 SODIUM 134 mmol/L L 135-145 POTASSIUM 4.8 mmol/L 3.5-5.0 CHLORIDE 103 mmol/L 100-110 CO2 24 meq/L 20-30 CREATININE, Serum 1.24 mg/dL 0.50-1.40 eGFR(CKD-EPI 2020) 50 mL/min L >60 Nov 05, 2023 10:46 AM [facility] CBC AND DIFF (AUTO) Specimen Type: BLOOD No comment entered. Ordering Provider: ELMER RO Report Released Date/Time: Nov 02, 2023 09:03 AM Reporting Lab: [facility] [address] [address] Performing Lab: [facility] [address] WBC 4.11 10*3/uL L 4.50-11.00 RBC 4.34 [...] 10*3/uL 0.00-0.00 Nov 05, 2023 10:46 AM [facility] LIPID PANEL FASTING Specimen Type: SERUM No comment entered. Ordering Provider: ADIA BERMUDEZ Report Released Date/Time: Oct 29, 2023 05:02 PM Reporting Lab: [facility] [address] [facility] [address] Performing Lab: [facility] [address] [facility] [address] CHOLESTEROL 224 mg/dL H TRIGLYCERIDE 158 mg/dL H 0-150 LDL calculated 136 mg/dL H 0-129 CHOL/HDL 4.0 HDL CHOLESTEROL 56 mg/dL 40-60 Nov 05, 2023 10:46 AM [facility] GLUCOSE FASTING Specimen Type: SERUM No comment entered. Ordering Provider: RHYS TAN Report Released Date/Time: Oct 18, 2023 12:52 PM Reporting Lab: [address] [address] Performing Lab: [address] [address] GLUCOSE 115 mg/dL H 65-100 Nov 05, 2023 10:46 AM [facility] HEMOGLOBIN A1C PANEL Specimen Type: BLOOD [...] Oct 18, 2023 12:52 PM Reporting Lab: [address] [address] Performing Lab: [address] [address] HEMOGLOBIN A1C 5.9 H 4.0-5.6 Nov 05, 2023 10:46 AM [facility] LIVER FUNCTION Specimen Type: SERUM No comment entered. Ordering Provider: RHYS TAN Report Released Date/Time: Oct 18, 2023 12:52 PM Reporting Lab: [address] [address] Performing Lab: [address] [address] PROTEIN,TOTAL 7.0 g/dL 6.0-8.3 ALBUMIN 4.3 g/dL [...] Rory nicholas Sep 11, 2023 03:00 PM VA-TOBACCO NEVER USED [facility] Tobacco Use History This section includes a history of the smoking, or tobacco-related health factors, that were collected on or before the date of the Encounter. The data comes from the [place] facility where the Encounter took place. Date/Time Smoking Status/Tobacco Use Comment F acility Nov 22, 2020 11:00 AM VA-TOBACCO NEVER USED [facility] Jan 31, 2018 09:33 AM VA-TOBACCO NEVER USED [facility] May 10, 2017 01:08 PM LIFETIME NON-TOBACCO USER [facility] Mar 02, 2015 09:05 AM LIFETIME NON-TOBACCO USER [facility] July 10, 2001 02:49 PM LIFETIME NON-TOBACCO USER [facility] Radiology Reports: +/- 30 days of the [...] the Encounter. The data comes from all [place] treatment facilities. Date/Time Radiology Report Provider Source Nov 16, 2023 10:34 AM KNEE 3 VIEWS (RIGHT): INDY KU [id number] -[id number] F Exm Date: NOV 16, 2023@10:34 Req Phys: ELMER RO F Pat Loc: CWM/SO/PACT EIGHT WH (Req'g Lo Img Loc: [facility] 1 Service: [place] [address] (Case [id number] COMPLETE) KNEE 3 VIEWS (RIGHT) (RAD Detailed) CPT:60056 Reason for Study: right knee pain and decreased rom, s/p fall Clinical History: h/o tkr Report Status: Verified Date Reported: NOV 16, 2023 Date Verified: NOV 16, 2023 Freight Coordinator E-Sig:/ES/LOLA NUNEZ JR Report: Study: AP weight-bearing [...] Primary Interpreting Staff: LOLA NUNEZ JR, Radiologist (Freight Coordinator) /EALOLA DIAZ JR [facility] Nov 16, 2023 10:07 AM KIDNEY AND BLADDER ULTRASOUND: INDY KU [id number] -[id number] F Exm Date: NOV 16, 2023@10:07 Req Phys: ELMER RO Pat Loc: CWM/SO/PACT EIGHT WH (Req'g Lo Img Loc: ULTRASOUND Service: Unknown [facility] [place] [address] (Case [id number] COMPLETE) ULTRASOUND KIDNEYS (US Detailed) CPT:59964 Reason for Study: DROPPING IN GFR (Case [id number] COMPLETE) ULTRASOUND URINARY BLADDER (US Detailed) CPT:00099 Clinical History: Report Status: Verified Date Reported: NOV 16, 2023 Date Verified: NOV 16, 2023 Freight Coordinator E-Sig:/ES/LOLA NUNEZ JR Report: Study: Genitourinary ultrasound. [...] Primary Interpreting Staff: LOLA NUNEZ JR, Radiologist (Freight Coordinator) /LOLA RODRIGUEZ JR [facility] Encounter Notes: All associated encounter notes This section contains the clinical notes associated to the Encounter. Date/Time Encounter Note(s) Provider Source Nov 15, 2023 11:19 AM PHYSICAL THERAPY I NITIAL EVALUATION NOTE: LOCAL TITLE: PHYSICAL THERAPY INITIAL NOTE STANDARD TITLE: PHYSICAL THERAPY INITIAL EVALUATION NOTE DATE OF NOTE: NOV 15, 2023@11:19 ENTRY DATE: NOV 15, 2023@11:19:26 AUTHOR: ROLF GUNDERSON COSIGNER: URGENCY: STATUS: COMPLETED Initial Evaluation date: Oct Progress Note Date: Treatment #: 0 Treatment time: 15 mins Diagnosis: pain in right knee Provider: PT Treatment Precautions: Patient identified by full name and date of PROSTHETIC CHECKOUT-Physical Therapy Pt was measured and ordered a knee wrap with hinges on this date, was educated in wear and care of it on this date, was provided with the phone number to the clinic should any questions arise (x) Pt is I and safe with use of equipment () Pt requires assistance: (x) Pt was educated to use, care, and safety of the equipment and demonstrated/verbalized understanding of same. (x) Pt was issued manual or written instructions. (x) Suggested pt call this therapist with any questions. (x) Goal of safe use of equipment met. No further services provided at this time. () Other: /farhan/ ERIKA VANCE LICENSE DRAWING TENDER Signed: 11/15/2023 11:24 ROLF GUNDERSON [facility]
--- OUTSIDE RECORDS SUMMARY | 2024-03-10 09:25 | XMS_ITS ---
Author Name [place] Address [address] [place] [address] Care Team Providers Care Children'S Service Supervisor Name Role Phone GARRETT GOOD Primary [...] Patient's Relationship to Policy Boykin [facility] CE ORGANIZ HMO Oct 06, 2018 HMO [id number] MEREDITH KU NN PATIENT ANTHEM BCBS CT FEDERAL PREFERRED PROVIDER ORGANIZAT ION (PPO) BASIC FAMIL Y Jan 31, 2015 [id number] MEREDITH KU NN PATIENT ANTHEM BCBS OF CT (BLUECARD) HIGH DEDUCTIBL E HEALTH PLAN CLINI [facility] & SUP HDHP Oct 06, 2018 [id number] MEREDITH KU NN PATIENT BCBS [place] HIGH DEDUCTIBL E HEALTH PLAN CLINI [facility] AND [place]LA[place] HDHP Oct 06, 2018 [id number] MEREDITH KU NN PATIENT [place]BS [place] HIGH DEDUCTIBL E HEALTH PLAN CLINI CHRISTINE SUPP HDHP Oct 06, [id number] 02 [id number] DELUISITOLY NN PATIENT BCBS OF [facility] CE ORGANIZ CLINI CHRISTINE AND SUPPO RT Oct 06, [id number] DEMEREDITH JORGE NN PATIENT BCBS OF [facility] PREFERRED PROVIDER ORGANIZAT ION (PPO) BASIC FAMIL Y Jan 31, 2015 [id number] DEHNTAMEKALY NN PATIENT [place] FEPRX PLAN PRESCRIPT ION BCBS FEP Jan 31, 2015 [id number] MEREDITH KU NN PATIENT [place]ARK-F EP BCBS PRESCRIPT ION BCBS FEP PLAN Jan 31, 2015 [id number] ELMIRALY NN PATIENT EXPRESS SCRIPTS PRESCRIPT ION HMO Oct 06, 2018 L4TA [id number] DELUISITOLY NN PATIENT EXPRESS SCRIPTS PRESCRIPT ION CLINI [facility] AND SUPPO RT Sep 19, 2018 L4TA [id number] DEHNTAMEKALY NN PATIENT EXPRESS SCRIPTS ([id number]) PRESCRIPT ION HDHP Oct 06, 2018 L4TA [id number] DEHNEHLY NN PATIENT EXPRESS SCRIPTS ([id number]) PRESCRIPT ION L4TA Oct 06, 2018 L4TA [id number] DEHNEHLY NN PATIENT EXPRESS SCRIPTS ([id number]) PRESCRIPT ION L4TA HDHP Oct 06, 2018 L4TA [id number] DEHNTAMEKALY NN PATIENT EXPRESS SCRIPTS RX PRESCRIPT ION CLINI [facility] AND SUPPO RT Oct 06, 2018 L4TA [id number] DEHNEH,LY NN PATIENT [id number] [facility] CE ORGANIZ CLINI CHRISTINE AND SUPPO RT Oct 06, [id number] DENEREYDATAMEKALY NN PATIENT [id number] [facility] CE ORGANIZ CLINI CHRISTINE AND SUPPO RT Oct 06, [id number] DEHNEH,LY NN PATIENT G210 BCBS ([facility] AND SUPPO RT Oct 06, 2018 [id number] DEHNEH,LY NN PATIENT G210 BCBS ([facility]ESS[facility] NAL) [facility] SUPPO RT Oct 06, [id number] DEHNEH,LY NN PATIENT MEDICARE (WNR) MEDICARE () PART A Nov 19, 2006 PART A [id number] DEHNEH,LY NN PATIENT MEDICARE (WNR) MEDICARE () PART A Nov 19, 2006 PART A [id number] DEHNEH,LY NN PATIENT MEDICARE (WNR) MEDICARE () PART A Nov 19, 2006 PART A [id number] DEHNEH,LY NN PATIENT MEDICARE (WNR) MEDICARE () PART A Nov 19, 2006 PART A [id number] DEHNEH,LY NN PATIENT MEDICARE (WNR) MEDICARE () PART B Nov 19, 2006 PART B [id number] DEHNEH,LY NN PATIENT MEDICARE (WNR) MEDICARE () PART A Nov 19, 2006 PART A [id number] DEHNEH,LY NN PATIENT MEDICARE (WNR) MEDICARE () PART A Nov 19, 2006 PART A [id number] [phone] DEHNEH,LY NN PATIENT MEDICARE (WNR) MEDICARE () PART A Nov 19, 2006 PART A [id number] DEHNEH,LY NN PATIENT MEDICARE (WNR) MEDICARE () PART B Nov 19, 2006 PART B [id number] DEHNEH,LY NN PATIENT Selected Encounter This section includes the information on record at [facility] for the Encounter. Date/Time Encounter Type Encounter Description Reason Pro vider Source Dec 24, 2023 12:00 AM Outpatient Encounter COMMUNITY CARE CONSULT IHE Encounter Template Text not used by VA Plan of Treatment: Future Appointments (+ 6 months) and Future Tests (+/- 45 days) The Plan of Treatment section includes future care activities for the patient from [facility] [place] [facility] This section includes future appointments and future orders which are active, pending or scheduled. Future Appointments This section includes appointments that were scheduled to occur 6 months from the date of the Encounter, up to a maximum of 20 appointments. The [facility] Appointment Date/Time Appointment Type Appointme nt Facility Name Dec 27, 2023 09:30 AM [facility]UL[facility] Feb 05, 2024 09:30 AM AM[facility]ULAT[facility] - MEDICINE [facility] [place] [facility] Feb 22, 2024 01:00 PM AMBULATORY - MEDICINE [facility] Feb 25, 2024 01:00 PM AMBULATORY - MEDICINE [facility] [place] [place] [facility] Feb 25, 2024 03:00 PM AMBULATORY - PSYCHIATRY [facility] Mar 10, 2024 09:15 AM AMBULATORY - MEDICINE [facility] Mar 13, 2024 03:00 PM AMBULATORY - MEDICINE [facility] [place] [facility] Apr 03, 2024 02:30 PM AMBULATORY - PSYCHIATRY [facility] Active, Pending, and Scheduled Orders This section includes a listing of several types of active, pending, and scheduled orders, including clinic medications orders, diagnostic test orders, procedure orders and consult orders; where the start date of the order is 45 days before the date of the Encounter or 45 days after the date of theEncounter. The [facility] Test Date/Time Test Type Test Details Facility Name Nov 09, 2023 02:02 PM Consult Order COMMUNITY CARE-NEPHROLOGY Cons [facility] Dec 11, 2023 12:00 AM Laboratory - Chemi stry Order OCCULT BLOOD FIT X1 SCREEN (MFP ONLY) STOOL FECES [facility] Jan 01, 2024 04:51 PM Consult Order COMMUNITY CARE-GI GENERAL Cons [facility] Social History: Smoking Status (Most current) and [...] 11, 2022 02:50 PM VA-TOBACCO NEVER USED [facility] Tobacco Use History This section includes a history of the smoking, or tobacco-related health factors, that were collected on or before the date of the Encounter. The data comes from the [place] facility where the Encounter took place. Date/Time Smoking Status/Tobacco Use Comment F acility Dec 05, 2019 01:53 PM VA-TOBACCO NEVER USED [facility] May 26, 2016 02:32 PM LIFETIME NON-TOBACCO USER [facility] Encounter Notes: All associated encounter notes This section contains the clinical notes associated to the Encounter. Date/Time Encounter Note(s) Provider Source Dec 24, 2023 12:00 AM NONVA CONSULT: LOCAL TITLE: COMMUNITY CARE-CONSULT RESULT NOTE STANDARD TITLE: NONVA CONSULT DATE OF NOTE: DEC 24, 2023 ENTRY DATE: DEC 26, 2023@08:02:59 AUTHOR: ALDAIR SHOOK EXP COSIGNER: URGENCY: STATUS: COMPLETED VistA Imaging - Scanned Document SCANNED DOCUMENT SIGNATURE NOT REQUIRED Electronically Filed: 12/26/2023 by: ALDAIR RIVERO [facility]
--- OUTSIDE RECORDS SUMMARY | 2024-03-10 09:25 | XMS_ITS ---
Author Name Department [place] Address [address] [place] [address] Care Team Providers Care Incident Manager Name Role Phone GARRETT GOOD Primary [...] Boykin's Name Patient's Relationship to Policy Boykin [facility]GAN[facility] H[facility] Oct 06, 2018 HMO [id number] MEREDITH KU NN PATIENT ANTHEM BCBS CT FEDERAL PREFERRED PROVIDER ORGANIZAT ION (PPO) BASIC FAMIL Y Jan 31, 2015 112 [id number] MEREDITH KU NN PATIENT ANTHEM BCBS OF CT (BLUECARD) HIGH DEDUCTIBL E HEALTH PLAN CLINI [facility] & SUP HDHP Oct 06, 2018 [id number] MEREDITH KU NN PATIENT BCBS [place] HIGH DEDUCTIBL E HEALTH PLAN CLINI [facility] HDHP Oct 06, 2018 [id number] MEREDITH KU NN PATIENT [place] HIGH DEDUCTIBL E HEALTH PLAN CLINI CHRISTINE SUPP HDHP Oct 06, [id number] 02 [id number] DELUISITOLY NN PATIENT BCBS OF CT/[facility] CE ORGANIZ CLINI CHRISTINE AND SUPPO RT Oct 06, [id number] DEMEREDITH JORGE NN PATIENT BCBS OF [facility] PREFERRED PROVIDER ORGANIZAT ION (PPO) BASIC FAMIL Y Jan 31, 2015 [id number] DEHNTAMEKALY NN PATIENT [place] FEPRX PLAN PRESCRIPT ION BCBS FEP Jan 31, 2015 [id number] ELMIRALY NN PATIENT [place]-F EP BCBS PRESCRIPT ION BCBS FEP PLAN Jan 31, 2015 [id number] ELMIRALY NN PATIENT EXPRESS SCRIPTS PRESCRIPT ION HMO Oct 06, 2018 L4TA [id number] DELUISITOLY NN PATIENT EXPRESS SCRIPTS PRESCRIPT ION CLINI [facility] AND SUPPO RT Sep 19, 2018 L4TA [id number] DELUISITOLY NN PATIENT EXPRESS SCRIPTS ([id number]) PRESCRIPT ION HDHP Oct 06, 2018 L4TA [id number] DEHNEHLY NN PATIENT EXPRESS SCRIPTS ([id number]) PRESCRIPT ION L4TA Oct 06, 2018 L4TA [id number] DEHNEHLY NN PATIENT EXPRESS SCRIPTS ([id number]) PRESCRIPT ION L4TA HDHP Oct 06, 2018 L4TA [id number] DELUISITOLY NN PATIENT EXPRESS SCRIPTS RX PRESCRIPT ION CLINI [facility] AND SUPPO RT Oct 06, 2018 L4TA [id number] DEHNEH,LY NN PATIENT [id number] [facility] CE ORGANIZ CLINI CHRISTINE AND SUPPO RT Oct 06, [id number] DEHNTAMEKALY NN PATIENT [id number] [facility] CE ORGANIZ CLINI CHRISTINE AND SUPPO RT Oct 06, [id number] DEHNEH,LY NN PATIENT G210 BCBS ([facility]) [facility]STINE AND SUPPO RT Oct 06, 2018 [id number] DEHNEH,LY NN PATIENT G210 BCBS (PROFESSIO NAL) [facility] CE ORGANIZ CLINI CHRISTINE AND SUPPO RT Oct 06, [id number] DEHNEH,LY NN PATIENT MEDICARE (WNR) MEDICARE ) PART A Nov 19, 2006 PART A [id number] DEHNEH,LY NN PATIENT MEDICARE (WNR) MEDICARE () PART A Nov 19, 2006 PART A [id number] DEHNEH,LY NN PATIENT MEDICARE (WNR) MEDICARE () PART A Nov 19, 2006 PART A [id number] DEHNEH,LY NN PATIENT MEDICARE (WN) MEDICARE ) PART B Nov 19, 2006 PART B [id number] DEHNEH,LY NN PATIENT MEDICARE (WNR) MEDICARE () PART A Nov 19, 2006 PART A [id number] [phone] DEHNEH,LY NN PATIENT MEDICARE (WNR) MEDICARE () PART A Nov 19, 2006 PART A [id number] DEHNEH,LY NN PATIENT MEDICARE (WNR) MEDICARE ) PART A Nov 19, 2006 PART A [id number] DEHNEH,LY NN PATIENT MEDICARE (WNR) MEDICARE ) PART A Nov 19, 2006 PART A [id number] DEHNEH,LY NN PATIENT MEDICARE (WNR) MEDICARE ) PART B Nov 19, 2006 PART B [id number] DEHNEH,LY NN PATIENT Selected Encounter This section includes the information on record at [place] for the Encounter. Date/Time Encounter Type Encounter Description Reason Provider Source Jan 01, 2024 04:35 PM Outpatient Encounter PRIMARY CARE/MEDICINE DYLAN LING Encounter Template Text not used by ME Plan of Treatment: Future Appointments (+ 6 months) and Future Tests (+/- 45 days) The Plan of Treatment section includes future care activities for the patient from all [place] [facility]. This section includes future appointments and future orders which are active, pending or scheduled. Future Appointments This section includes appointments that were scheduled to occur 6 months from the date of the Encounter, up to a maximum of 20 appointments. The data comes from all [facility]. Appointment Date/Time Appointment Type Appointme nt Facility Name Feb 05, 2024 09:30 AM AMBULATORY - MEDICINE [facility] [place] [facility] Feb 22, 2024 01:00 PM AMBULATORY - MEDICINE [facility] Feb 25, 2024 01:00 PM AMBULATORY - MEDICINE [facility] [place] [facility] Feb 25, 2024 03:00 PM AMBULATORY - PSYCHIATRY [facility] Mar 10, 2024 09:15 AM [facility]BULAT[facility] - [facility] Mar 13, 2024 03:00 PM AMBULATORY - MEDICINE [facility] [place] [facility] Apr 03, 2024 02:30 PM AMBULATORY - PSYCHIATRY [facility] Active, Pending, and [...] Date/Time Test Type Test Details Facility Name Dec 11, 2023 12:00 AM Laboratory - Chemi str Order OCCULT BLOOD FIT X1 SCREEN (MFP ONLY) STOOL FECES [facility] Jan 01, 2024 04:51 PM Consult Order COMMUNITY CARE-GI GENERAL Cons [employer] [facility] Social History: Smoking Status (Most current) and Tobacco Use (All prior to encounter date) This section includes the most current, and the historical, smoking and tobacco- related health factors from the [place] facility where the Encounter took place. Current Smoking Status This section includes the most current smoking, or tobacco-related health factor, from the [place] facility where the Encounter took place. Date/Time Current Smoking Status Comment Rory ity Aug 11, 2022 02:50 PM ME-TOBACCO NEVER USED [facility] Tobacco Use History This section includes a history of the smoking, or tobacco-related health factors, that were collected on or before the date of the Encounter. The data comes from the [place] facility where the Encounter took place. Date/Time Smoking Status/Tobacco Use Comment Barb gonzalez Dec 05, 2019 01:53 PM VA-TOBACCO NEVER USED [facility] May 26, 2016 02:32 PM LIFETIME NON-TOBACCO USER [facility] Encounter Notes: All associated encounter notes This section contains the clinical notes associated to the Encounter. Date/Time Encounter Note(s) Provider Source Jan 02, 2024 07:52 AM PRIMARY CARE Funji MESSAGING: LOCAL TITLE: PRIMARY CARE SECURE MESSAGING STANDARD TITLE: PRIMARY CARE SECURE MESSAGING DATE OF NOTE: JAN 02, 2024@07:52 ENTRY DATE: JAN 02, 2024@07:52:58 AUTHOR: RYLAND DE LEON COSIGNER: URGENCY: STATUS: COMPLETED ------Original Message -------- Sent: 01/01/2024 08:02 PM ET From: INDY KU To: John GOOD FORMERLY Yessy RO,_PRIMARYCARE_[facility] Subject: General:General Inquiry Hi there, I was seen at [facility]. The same hospital as my rectal/anal surgeon. The ER doc put the internal hemorrhoids back in. There is no rectal prolapse, just hemorrhoid prolapse. You won't find anything else, that is all that happened. I then saw Dr. Fallon on Sunday, Dec.23. He informed me that I need two more open anal surgeries, but I cannot do anymore at this time as the last open anal surgery was done on Sep.27. He said I have a very extreme case of internal and external hemorrhoids. I have had issues of abdominal cramping and issues with constipation for many years and never said anything to anyone because I blamed myself. I now know that it is likely that I am correct with the IBS dx with all of the hemorrhoid issues I am having. Thank you. /farhan/ RYLAND DE LEON LPN Licensed Practical Nurse Signed: 01/02/2024 07:52 MOISES,DINARA [place] [facility] [place] [facility] Jan 01, 2024 04:35 PM PRIMARY CARE SECUR E MESSAGING: LOCAL TITLE: PRIMARY CARE SECURE MESSAGING STANDARD TITLE: PRIMARY CARE SECURE MESSAGING DATE OF NOTE: JAN 01, 2024@16:35 ENTRY DATE: JAN 01, 2024@16:35:58 AUTHOR: DYLAN LING EXP COSIGNER: URGENCY: STATUS: COMPLETED ------Original Message -------- Sent: 01/01/2024 04:35 PM ET From: DYLAN LING To: INDY KU Subject: General:General Inquiry good afternoon, Could you please advise which hospital you were seen at on 12/20/2023 for care? We would like to request records for provider review. Dylan Madrigal RN /frahan/ DYLAN LING BSN RN-BC REGISTERED NURSE Signed: 01/01/2024 16:35 DYLAN LING [facility]
--- OUTSIDE RECORDS SUMMARY | 2024-03-10 09:25 | XMS_ITS | Encounter Summary ---
Author Name [place] Address [address] [place] [address] Care Team Providers Care Clin Nurse Name Role Phone GARRETT GOOD Primary Care [...] Boykin's Name Patient's Relationship to Policy [facility] Oct 06, 2018 HMO [id number] [phone] MEREDITH KU NN PATIENT ANTHEM BCBS CT FEDERAL PREFERRED PROVIDER ORGANIZAT ION (PPO) BASIC FAMIL Y Jan 31, 2015 [id number] MEREDITH KU NN PATIENT ANTHEM BCBS OF CT (BLUECARD) HIGH DEDUCTIBL E HEALTH PLAN CLINI [facility] & SUP HDHP Oct 06, 2018 [id number] MEREDITH KU NN PATIENT BCBS [place] HIGH DEDUCTIBL E HEALTH PLAN CLINI [facility] AND [place]LAKE HDHP Oct 06, 2018 [id number] MEREDITH KU NN PATIENT BCBS OF [place] HIGH DEDUCTIBL E HEALTH PLAN CLINI CHRISTINE SUPP HDHP Oct 06, [id number] DELUISITOLY NN PATIENT BCBS OF CT/Peer.im [facility] CE ORGANIZ CLINI CHRISTINE AND SUPPO RT Oct 06, [id number] DEMEREDITH JORGE NN PATIENT BCBS OF [facility] PREFERRED PROVIDER ORGANIZAT ION (PPO) BASIC FAMIL Y Jan 31, 2015 [id number] DEHNTAMEKALY NN PATIENT [place] FEPRX PLAN PRESCRIPT ION BCBS FEP Jan 31, 2015 [id number] ELMIRALY NN PATIENT CAR[place]ARK-F EP BCBS PRESCRIPT ION BCBS FEP PLAN Jan 31, 2015 [id number] ELMIRALY NN PATIENT EXPRESS SCRIPTS PRESCRIPT ION HMO Oct 06, 2018 L4TA [id number] DELUISITOLY NN PATIENT EXPRESS SCRIPTS PRESCRIPT ION CLINI [facility] AND SUPPO RT Sep 19, 2018 L4TA [id number] DELUISITOLY NN PATIENT EXPRESS SCRIPTS ([id number]) PRESCRIPT ION HDHP Oct 06, 2018 L4TA [id number] DEHNEHLY NN PATIENT EXPRESS SCRIPTS ([id number]) PRESCRIPT ION L4TA Oct 06, 2018 L4TA [id number] DEHNEHLY NN PATIENT EXPRESS SCRIPTS ([id number]) PRESCRIPT ION L4TA HDHP Oct 06, 2018 L4TA [id number] DELUISITOLY NN PATIENT EXPRESS SCRIPTS RX PRESCRIPT ION CLINI [facility] AND SUPPO RT Oct 06, 2018 L4TA [id number] DEHNEH,LY NN PATIENT [id number] [facility] CE ORGANIZ CLINI CHRISTINE AND SUPPO RT Oct 06, [id number] DEHNTAMEKALY NN PATIENT [id number] [facility] CE ORGANIZ CLINI CHRISTINE AND SUPPO RT Oct 06, [id number] DEHNEH,LY NN PATIENT G210 BCBS ([facility]) [facility] CE ORGANIZ CLINI CHRISTINE AND SUPPO RT Oct 06, 2018 [id number] DEHNEH,LY NN PATIENT G210 BCBS (PROFESSIO NAL) [facility] MAINTENAN CE ORGANIZ CLINI CHRISTINE AND SUPPO RT Oct 06, [id number] DEHNEH,LY NN PATIENT MEDICARE (WNR) MEDICARE ) PART A Nov 19, 2006 PART A [id number] DEHNEH,LY NN PATIENT MEDICARE (WNR) MEDICARE () PART A Nov 19, 2006 PART A [id number] DEHNEH,LY NN PATIENT MEDICARE (WNR) MEDICARE () PART A Nov 19, 2006 PART A [id number] DEHNEH,LY NN PATIENT MEDICARE (WN) MEDICARE ) PART B Nov 19, 2006 PART B [id number] DEHNEH,LY NN PATIENT MEDICARE (WNR) MEDICARE () PART A Nov 19, 2006 PART A [id number] DEHNEH,LY NN PATIENT MEDICARE (WNR) MEDICARE () PART A Nov 19, 2006 PART A [id number] DEHNEH,LY NN PATIENT MEDICARE (WNR) MEDICARE ) PART A Nov 19, 2006 PART A [id number] DEHNEH,LY NN PATIENT MEDICARE (WNR) MEDICARE () PART A Nov 19, 2006 PART A [id number] [phone] DEHNEH,LY NN PATIENT MEDICARE (WNR) MEDICARE () PART B Nov 19, 2006 PART B [id number] DEHNEH,LY NN PATIENT Selected Encounter This section includes the information on record at [place] for the Encounter. Date/Time Encounter Type Encounter Description Reason Provider Source Jan 01, 2024 10:06 AM Outpatient Encounter PRIMARY CARE/MEDICINE [place]IS[facility],DIN EFFIE IHE Encounter Template Text not used by [place] Plan of Treatment: Future Appointments (+ 6 months) and Future Tests (+/- 45 days) The Plan of Treatment section includes future care activities for the patient from all [place] [facility]. This section includes future appointments and future orders which are active, pending or scheduled. Future Appointments This section includes appointments that were scheduled to occur 6 months from the date of the Encounter, up to a maximum of 20 appointments. The data comes from all [facility]. Appointment Date/Time Appointment Type Appointme nt Facility Name Feb 05, 2024 09:30 AM AMBULATORY - MEDICINE [facility] [place] [facility] Feb 22, 2024 01:00 PM AMBULATORY - MEDICINE [facility] Feb 25, 2024 01:00 PM AMBULATORY - MEDICINE [facility] [place] [facility] Feb 25, 2024 03:00 PM AMBULATORY - PSYCHIATRY [facility] Mar 10, 2024 09:15 AM AMBULAT[facility] - [facility] Mar 13, 2024 03:00 PM AMBULATORY - MEDICINE [facility] [place] [facility] Apr 03, 2024 02:30 [...] of theEncounter. The data comes from all [facility]. Test Date/Time Test Type Test Details Facility Name Dec 11, 2023 12:00 AM Laboratory - Chemi str Order OCCULT BLOOD FIT X1 SCREEN (MFP ONLY) STOOL [facility]ECES [facility] Jan 01, 2024 04:51 PM Consult Order COMMUNITY CARE-GI GENERAL Cons Manager Agricultural[employer] Choice [facility] Social History: Smoking Status (Most current) and [...] 11, 2022 02:50 PM VA-TOBACCO [facility] Tobacco Use History This section includes a history of the smoking, or tobacco-related health factors, that were collected on or before the date of the Encounter. The data comes from the [place] facility where the Encounter took place. Date/Time Smoking Status/Tobacco Use Comment F lisa Dec 05, 2019 01:53 PM VA-TOBACCO NEVER USED [facility] May 26, 2016 02:32 PM LIFETIME NON-TOBACCO USER [facility] Encounter Notes: All associated encounter notes This section contains the clinical notes associated to the Encounter. Date/Time Encounter Note(s) Provider Source Jan 01, 2024 10:06 AM PRIMARY CARE SECURE MESSAGING: LOCAL TITLE: PRIMARY CARE SECURE MESSAGING STANDARD TITLE: PRIMARY CARE SECURE MESSAGING DATE OF NOTE: JAN 01, 2024@10:06 ENTRY DATE: JAN 01, 2024@10:06:15 AUTHOR: RYLAND DE LEON COSIGNER: URGENCY: STATUS: COMPLETED PRIMARY CARE SECURE MESSAGING Has ADDENDA ------Original Message --- Sent: 12/30/2023 02:15 PM ET From: LILLIAN KU To: John GOOD A,_[facility] Subject: Appointment:need gastroenterology referral jose angel Lindsey, I am writing to inform you that I had a visit to the ER on . It was in regards to rectal issues. I saw my rectal surgeon on SundayDec.23. I was informed that I will need 2 more open anal/rectal surgeries in order to remove all of the internal and external hemmorrioids, however it is too soon to have another surgery right now. I believe I have had IBS for many years. I never told a service provider about it because I blamed myself all those years of eating unhealthy foods. I currently take 1 stool softener in the AM and another one in PM. I also take Metamucil one time a day and drink at least 5-6 bottles of water daily. I feel the need to have a BM, it is there but not coming out without pushing too hard and, as a result the hemorrhoids inside all come out. This is why I was rushed to the ER cause I was in severe pain. Please note that I had also had 2 episodes of rectal prolapse in the past. I am asking for a referral to a customer operations intern as soon as possible. My life is a mess, and I am very scared and uncomfortable. BTW I saw the renal doc on Dec.26, we did lab work. I look forward to hearing from you. Sincerely Lillian Ku 100% disabled /farhan/ RYLAND DE LEON LPN Licensed Practical Nurse Signed: 01/01/2024 10:06 Receipt Acknowledged By: 01/01/2024 16:27 /farhan/ JOSE CARLOS KELLEY RN-BC REGISTERED NURSE 01/01/2024 ADDENDUM STATUS: COMPLETED Reply sent to [place] via secure message /farhan/ JOSE CARLOS KELLEY RN-BC REGISTERED NURSE Signed: 01/01/2024 16:36 ELADIA DE LEON [place] [facility]
--- OUTSIDE RECORDS SUMMARY | 2024-03-10 09:25 | XMS_ITS | Encounter Summary ---
Author Name Department [place] Address [address] [place] [address] Care Team Providers Care Performance Improvement Coordinator Name Role Phone GARRETT GOOD Primary [...] Boykin's Name Patient's Relationship to Policy Boykin trivagoFORMERLY [facility] CE ORGANIZ HMO Oct 06, 2018 HMO [id number] MEREDITH KU NN PATIENT ANTHEM BCBS CT FEDERAL PREFERRED PROVIDER ORGANIZAT ION (PPO) BASIC FAMIL Y Jan 31, 2015 [id number] MEREDITH KU NN PATIENT ANTHEM BCBS OF CT (BLUECARD) HIGH DEDUCTIBL E HEALTH PLAN CLINI [facility]INE & SUP HDHP Oct 06, 2018 [id number] [phone] MEREDITH KU NN PATIENT BCBS [place] HIGH DEDUCTIBL E HEALTH PLAN CLINI [facility]INE AND [place]LAKE HDHP Oct 06, 2018 [id number] [phone] MEREDITH KU NN PATIENT BC[place] HIGH DEDUCTIBL E HEALTH PLAN CLINI CHRISTINE SUPP HDHP Oct 06, [id number] [phone] DELUISITOLY NN PATIENT BCBS OF [place]/[employer] [facility] CE ORGANIZ CLINI CHRISTINE AND SUPPO RT Oct 06, [id number] DEMEREDITH JORGE NN PATIENT BCBS OF [facility] PREFERRED PROVIDER ORGANIZAT ION (PPO) BASIC FAMIL Y Jan 31, 2015 [id number] DEHNTAMEKALY NN PATIENT [place] FEPRX PLAN PRESCRIPT ION BCBS FEP Jan 31, 2015 [id number] ELMIRALY NN PATIENT CAR[place]ARK-F EP BCBS PRESCRIPT ION BCBS FEP PLAN Jan 31, 2015 [id number] ELMIRALY NN PATIENT EXPRESS SCRIPTS PRESCRIPT ION HMO Oct 06, 2018 L4TA [id number] DELUISITOLY NN PATIENT EXPRESS SCRIPTS PRESCRIPT ION CLINI [facility] AND SUPPO RT Sep 19, 2018 L4TA [id number] DELUISITOLY NN PATIENT EXPRESS SCRIPTS ([id number]) PRESCRIPT ION HDHP Oct 06, 2018 L4TA [id number] DEHNEHLY NN PATIENT EXPRESS SCRIPTS ([id number]) PRESCRIPT ION L4TA Oct 06, 2018 L4TA [id number] DEHNEHLY NN PATIENT EXPRESS SCRIPTS ([id number]) PRESCRIPT ION L4TA HDHP Oct 06, 2018 L4TA [id number] DELUISITOLY NN PATIENT EXPRESS SCRIPTS RX PRESCRIPT ION CLINI [facility] AND SUPPO RT Oct 06, 2018 L4TA [id number] DEHNEH,LY NN PATIENT [id number] [facility] CE ORGANIZ CLINI CHRISTINE AND SUPPO RT Oct 06, [id number] 02 [id number] DEHNTAMEKALY NN PATIENT [id number] [facility] CE ORGANIZ CLINI CHRISTINE AND SUPPO RT Oct 06, [id number] DEHNEH,LY NN PATIENT G210 BCBS ([facility]) [facility] AND SUPPO RT Oct 06, 2018 [id number] DEHNEH,LY NN PATIENT G210 BCBS (PROFESSIO NAL) [facility] MAINTENAN CE ORGANIZ CLINI CHRISTINE AND SUPPO RT Oct 06, [id number] DEHNEH,LY NN PATIENT MEDICARE (WNR) MEDICARE ) PART A Nov 19, 2006 PART A [id number] DEHNEH,LY NN PATIENT MEDICARE (WNR) MEDICARE () PART A Nov 19, 2006 PART A [id number] DEHNEH,LY NN PATIENT MEDICARE (WNR) MEDICARE () PART A Nov 19, 2006 PART A [id number] DEHNEH,LY NN PATIENT MEDICARE (WN) MEDICARE ) PART B Nov 19, 2006 PART B [id number] DEHNEH,LY NN PATIENT MEDICARE (WNR) MEDICARE () PART A Nov 19, 2006 PART A [id number] DEHNEH,LY NN PATIENT MEDICARE (WNR) MEDICARE () PART A Nov 19, 2006 PART A [id number] DEHNEH,LY NN PATIENT MEDICARE (WN) MEDICARE ) PART A Nov 19, 2006 PART A [id number] DEHNEH,LY NN PATIENT MEDICARE (WNR) MEDICARE ) PART A Nov 19, 2006 PART A [id number] DEHNEH,LY NN PATIENT MEDICARE (WNR) MEDICARE ) PART B Nov 19, 2006 PART B [id number] [phone] DEHNEH,LY NN PATIENT Selected Encounter This section includes the information on record at [place] for the Encounter. Date/Time Encounter Type Encounter Description Reason Provider Source Jan 02, 2024 02:25 PM Outpatient Encounter PRIMARY CARE/MEDICINE [place] [facility] Nav Encounter Template Text not used by [place] Plan of Treatment: Future Appointments (+ 6 months) and Future Tests (+/- 45 days) The Plan of Treatment section includes future care activities for the patient from all [place] [facility]. This section includes future appointments and future orders which are active, pending or scheduled. Future Appointments This section includes appointments that were scheduled to occur 6 months from the date of the Encounter, up to a maximum of 20 appointments. The data comes from all [facility]. Appointment Date/Time Appointment Type Appointme nt Facility Name Feb 05, 2024 09:30 AM AMBULATORY - MEDICINE [facility] [place] [facility] Feb 22, 2024 01:00 PM AMBULATORY - MEDICINE [facility] Feb 25, 2024 01:00 PM AMBULATORY - MEDICINE [facility] [place] [facility] Feb 25, 2024 03:00 PM AMBULATORY - PSYCHIATRY [facility] Mar 10, 2024 09:15 AM AMBULATORY - MEDICINE [facility] [place] [facility] Mar 13, 2024 03:00 PM AMBULATORY MEDICINE [facility] [place] [facility] Apr 03, 2024 02:30 PM AMBULATORY [...] of theEncounter. The data comes from all [facility]. Test Date/Time Test Type Test Details Facility Name Dec 11, 2023 12:00 AM Laboratory - Chemi str Order OCCULT BLOOD FIT X1 SCREEN (MFP ONLY) STOOL FECES [facility] Jan 01, 2024 04:51 PM Consult Order COMMUNITY CARE-GI GENERAL Cons [employer] Social History: Smoking Status (Most current) and [...] 11, 2022 02:50 PM VA-TOBACCO NEVER USED [facility] Tobacco Use History This section includes a history of the smoking, or tobacco-related health factors, that were collected on or before the date of the Encounter. The data comes from the [place] facility where the Encounter took place. Date/Time Smoking Status/Tobacco Use Comment Barb gonzalez Dec 05, 2019 01:53 PM VA-TOBACCO NEVER USED [facility] May 26, 2016 02:32 PM LIFETIME NON-TOBACCO USER [facility] Encounter Notes: All associated encounter notes This section contains the clinical notes associated to the Encounter. Date/Time Encounter Note(s) Provider Source Jan 02, 2024 02:27 PM ADDENDUM: LOCAL TITLE: Addendum STANDARD TITLE: ADDENDUM DATE OF NOTE: JAN 02, 2024@14:27:20 ENTRY DATE: JAN 02, 2024@14:27:21 AUTHOR: BERNARD HILL COSIGNER: URGENCY: STATUS: COMPLETED AMSA schedule appointment for and request records from [facility] also in [facility]. Thanks! /es/ KATELYN HILL LPN LPN Signed: 01/02/2024 14:28 Receipt Acknowledged By: 01/03/2024 15:19 /es/ DEL ECHOLS ADVANCED LINDERMAN MACHINE OPERATOR ========= --- Original Document --- 01/02/24 PRIMARY CARE SECURE MESSAGING: ------Original Message -------- Sent: 01/02/2024 02:16 PM ET From: INDY KU To: Jolly GOOD_PRIMARY CARE_SPOPC Subject: Appointment:Rosalia meade on Jan 14 [place], It looks like Dr. Lindsey is no longer my PCP, is this correct? I have an appt. scheduled with her on at 2:30pm. Should I cancel that? Is it possible to schedule an appt. with my new PCP sometime AFTER Feb.19? I am loaded with appointments until after the new year between my daughter and I. 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 I look forward to hearing from you. Thank you /farhan/ KATELYN HILL LPN LPN Signed: 01/02/2024 14:25 BERNARD HILL RAFAEL [place] [facility] [place] [facility] Jan 02, 2024 02:25 PM PRIMARY CARE SECUR E MESSAGING: LOCAL TITLE: PRIMARY CARE SECURE MESSAGING STANDARD TITLE: PRIMARY CARE SECURE MESSAGING DATE OF NOTE: JAN 02, 2024@14:25 ENTRY DATE: JAN 02, 2024@14:25:19 AUTHOR: BERNARD HILL EXP COSIGNER: URGENCY: STATUS: COMPLETED PRIMARY CARE SECURE MESSAGING Has ADDENDA ------Original Message -------- Sent: 01/02/2024 02:16 PM ET From: INDY KU To: Jolly GODO[facility] Subject: Appointment:Rosalia gaonat. on Jan 14 [facility], It looks like Dr. Lindsey is no longer my PCP, is this correct? I have an appt. scheduled with her on at 2:30pm. Should I cancel that? Is it possible to schedule an appt. with my new PCP sometime AFTER Feb.19? I am loaded with appointments until after the new year between my daughter and I. 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 I look forward to hearing from you. Thank you /sindi HILL LPN LPN Signed: 01/02/2024 14:25 01/02/2024 ADDENDUM STATUS: COMPLETED AMSA schedule appointment for and request records from [facility] in [facility]. Thanks! /sindi HILL LPN LPN Signed: 01/02/2024 14:28 Receipt Acknowledged By: 01/03/2024 15:19 /farhan/ DEL ECHOLS ADVANCED LINDERMAN MACHINE OPERATOR 01/03/2024 ADDENDUM STATUS: COMPLETED THIS OFFICE PROFESSIONAL REQUESTED RECORDS FROM [facility] AND [facility]. /farhan/ DEL ECHOLS ADVANCED LINDERMAN MACHINE OPERATOR Signed: 01/03/2024 15:24 [facility]
--- OUTSIDE RECORDS SUMMARY | 2024-03-10 09:26 | XMS_ITS | Encounter Summary ---
Author Name [place] Address [address] [place] [address] Care Team Providers Care Regulatory Affairs Manager Name Role Phone GARRETT GOOD Primary [...] Boykin's Name Patient's Relationship to Policy [facility]kin [facility] Oct 06, 2018 HMO [id number] [phone] MEREDITH KU NN PATIENT ANTHEM BCBS CT FEDERAL PREFERRED PROVIDER ORGANIZAT ION (PPO) BASIC FAMIL Y Jan 31, 2015 [id number] MEREDITH KU NN PATIENT ANTHEM BCBS OF CT (BLUECARD) HIGH DEDUCTIBL E HEALTH PLAN CLINI [facility] & SUP HDHP Oct 06, 2018 [id number] MEREDITH KU NN PATIENT BCBS [place] HIGH DEDUCTIBL E HEALTH PLAN CLINI [facility] AND BLAKE HDHP Oct 06, 2018 [id number] [phone] MEREDITH KU NN PATIENT BCBS OF [place] HIGH DEDUCTIBL E HEALTH PLAN CLINI CHRISTINE SUPP HDHP Oct 06, [id number] DELUISITOLY NN PATIENT BCBS OF [place]/[employer] [facility] CE ORGANIZ CLINI CHRISTINE AND SUPPO RT Oct 06, [id number] DEMEREDITH JORGE NN PATIENT BCBS OF [facility] PREFERRED PROVIDER ORGANIZAT ION (PPO) BASIC FAMIL Y Jan 31, 2015 [id number] DEHNTAMEKALY NN PATIENT CAREMARK FEPRX PLAN PRESCRIPT ION BCBS FEP Jan 31, 2015 [id number] ELMIRALY NN PATIENT CAREMARK-F EP BCBS PRESCRIPT ION BCBS FEP PLAN Jan 31, 2015 [id number] ELMIRALY NN PATIENT EXPRESS SCRIPTS PRESCRIPT ION HMO Oct 06, 2018 L4TA [id number] DELUISITOLY NN PATIENT EXPRESS SCRIPTS PRESCRIPT ION CLINI [facility] AND SUPPO RT Sep 19, 2018 L4TA [id number] DELUISITOLY NN PATIENT EXPRESS SCRIPTS ([id number]) PRESCRIPT ION HDHP Oct 06, 2018 L4TA [id number] DEHNEHLY NN PATIENT EXPRESS SCRIPTS ([id number]) PRESCRIPT ION L4TA Oct 06, 2018 L4TA [id number] DEHNEHLY NN PATIENT EXPRESS SCRIPTS ([id number]) PRESCRIPT ION L4TA HDHP Oct 06, 2018 L4TA [id number] DELUISITOLY NN PATIENT EXPRESS SCRIPTS RX PRESCRIPT ION CLINI [facility] AND SUPPO RT Oct 06, 2018 L4TA [id number] DEHNEH,LY NN PATIENT [id number] [facility] CE ORGANIZ CLINI [facility] AND SUPPO RT Oct 06, [id number] DEHNTAMEKALY NN PATIENT [id number] [facility] CLINI [facility] AND SUPPO RT Oct 06, [id number] DEHNEH,LY NN PATIENT G210 BCBSM ([facility]) [facility] CE ORGANIZ CLINI CHRISTINE AND SUPPO RT Oct 06, 2018 [id number] DEHNEH,LY NN PATIENT G210 BCBS (PROFESSIO NAL) [facility] MAINTENAN CE ORGANIZ CLINI CHRISTINE AND SUPPO RT Oct 06, [id number] DEHNEH,LY NN PATIENT MEDICARE (WNR) MEDICARE () PART A Nov 19, 2006 PART A [id number] DEHNEH,LY NN PATIENT MEDICARE (WNR) MEDICARE () PART A Nov 19, 2006 PART A [id number] DEHNEH,LY NN PATIENT MEDICARE (WNR) MEDICARE () PART A Nov 19, 2006 PART A [id number] DEHNEH,LY NN PATIENT MEDICARE (WNR) MEDICARE () PART A Nov 19, 2006 PART A [id number] DEHNEH,LY NN PATIENT MEDICARE (WNR) MEDICARE () PART B Nov 19, 2006 PART B [id number] DEHNEH,LY NN PATIENT MEDICARE (WNR) MEDICARE () PART A Nov 19, 2006 PART A [id number] DEHNEH,LY NN PATIENT MEDICARE (WNR) MEDICARE () PART A Nov 19, 2006 PART A [id number] DEHNEH,LY NN PATIENT MEDICARE (WNR) MEDICARE () PART A Nov 19, 2006 PART A [id number] DEHNEH,LY NN PATIENT MEDICARE (WNR) MEDICARE () PART B Nov 19, 2006 PART B [id number] DEHNEH,LY NN PATIENT Selected Encounter This section includes the information on record at [place] for the Encounter. Date/Time Encounter Type Encounter Description Reason Pro vider Source Jan 03, 2024 02:38 PM Outpatient Encounter PRIMARY CARE/MEDICINE IHE Encounter Template Text not used by [place] Plan of Treatment: Future Appointments (+ 6 months) and Future Tests (+/- 45 days) The Plan of Treatment section includes future care activities for the patient from all [place] [facility]. This section includes future appointments and future orders which are active, pending or scheduled. Future Appointments This section includes appointments that were scheduled to occur 6 months from the date of the Encounter, up to a maximum of 20 appointments. The data comes from all [facility] facilities. Appointment Date/Time Appointment Type Appointme nt Facility Name Feb 05, 2024 09:30 AM AMBULATORY - [facility]INE [facility] Feb 22, 2024 01:00 PM AMBULATORY - MEDICINE [facility] Feb 25, 2024 01:00 PM AMBULATORY [facility] Feb 25, 2024 03:00 PM AMBULATORY - [facility] Mar 10, 2024 09:15 AM AMBULATORY - MEDICINE [facility] Mar 13, 2024 03:00 PM AMBULATORY - MEDICINE [facility] Apr 03, 2024 02:30 PM [...] of theEncounter. The data comes from all [facility]. Test Date/Time Test Type Test Details Facility Name Dec 11, 2023 12:00 AM Laboratory - Chemi rich Order OCCULT BLOOD FIT X1 SCREEN (MFP ONLY) STOOL FECES [facility] Jan 01, 2024 04:51 PM Consult Order COMMUNITY CARE-GI GENERAL Cons Material Damage Adjuster's Choice [place] Social History: Smoking Status (Most current) and [...] 11, 2022 02:50 PM VA-TOBACCO NEVER USED [facility] Tobacco Use History This section includes a history of the smoking, or tobacco-related health factors, that were collected on or before the date of the Encounter. The data comes from the [place] facility where the Encounter took place. Date/Time Smoking Status/Tobacco Use Comment F acility Dec 05, 2019 01:53 PM VA-TOBACCO NEVER USED [facility] May 26, 2016 02:32 PM LIFETIME NON-TOBACCO USER [facility] Encounter Notes: All associated encounter notes This section contains the clinical notes associated to the Encounter. Date/Time Encounter Note(s) Provider Source Jan 03, 2024 02:38 PM PREVENTIVE MEDICIN E NURSING NOTE: LOCAL TITLE: CLINICAL REMINDERS/NURSING STANDARD TITLE: PREVENTIVE MEDICINE NURSING NOTE DATE OF NOTE: JAN 03, 2024@14:38 ENTRY DATE: JAN 03, 2024@14:38:21 AUTHOR: MURPHY CORONA EXP COSIGNER: URGENCY: STATUS: COMPLETED Mammogram Screening: The patient declined a mammogram. Comment: deferred for 6 months per request /es/ Murphy Corona, RN, BSN Women's Healthcare Navigator, RN Signed: 01/03/2024 14:39 MURPHY CORONA [place]
--- OUTSIDE RECORDS SUMMARY | 2024-03-10 09:26 | XMS_ITS | Encounter Summary ---
Author Name Department of [place] Organization Department [place] Address [address] [place] [address] Care Team Providers Care Horn Player Name Role Phone GARRETT GOOD Primary Care [...] Boykin's Name Patient's Relationship to Policy [facility]kin [facility] Oct 06, 2018 HMO [id number] MEREDITH KU NN PATIENT ANTHEM BCBS CT FEDERAL PREFERRED PROVIDER ORGANIZAT ION (PPO) BASIC FAMIL Y Jan 31, 2015 [id number] MEREDITH KU NN PATIENT ANTHEM BCBS OF CT (BLUECARD) HIGH DEDUCTIBL E HEALTH PLAN CLINI [facility] & SUP HDHP Oct 06, 2018 [id number] MEREDITH KU NN PATIENT BCBS [place] HIGH DEDUCTIBL E HEALTH PLAN CLINI [facility] AND [place]LA[place] HDHP Oct 06, 2018 [id number] [phone] MEREDITH KU NN PATIENT BC[place] OF [place] HIGH DEDUCTIBL E HEALTH PLAN CLINI CHRISTINE SUPP HDHP Oct 06, [id number] DELUISITOLY NN PATIENT BCBS OF [place]/[employer] [facility] CE ORGANIZ CLINI CHRISTINE AND SUPPO RT Oct 06, [id number] DEMEREDITH JORGE NN PATIENT BCBS OF [facility] PREFERRED PROVIDER ORGANIZAT ION (PPO) BASIC FAMIL Y Jan 31, 2015 [id number] [phone] DEHNTAMEKALY NN PATIENT [place] FEPRX PLAN PRESCRIPT ION BCBS FEP Jan 31, 2015 [id number] ELMIRALY NN PATIENT CAREMARK-F EP BCBS PRESCRIPT ION BCBS FEP PLAN Jan 31, 2015 [id number] ELMIRALY NN PATIENT EXPRESS SCRIPTS PRESCRIPT ION HMO Oct 06, 2018 L4TA [id number] DELUISITOLY NN PATIENT EXPRESS SCRIPTS PRESCRIPT ION CLINI [facility] AND SUPPO RT Sep 19, 2018 L4TA [id number] DELUISITOLY NN PATIENT EXPRESS SCRIPTS ([id number]) PRESCRIPT ION HDHP Oct 06, 2018 L4TA [id number] DEHNEHLY NN PATIENT EXPRESS SCRIPTS ([id number]) PRESCRIPT ION L4TA Oct 06, 2018 L4TA [id number] DEHNEHLY NN PATIENT EXPRESS SCRIPTS ([id number]) PRESCRIPT ION L4TA HDHP Oct 06, 2018 L4TA [id number] DELUISITOLY NN PATIENT EXPRESS SCRIPTS RX PRESCRIPT ION CLINI [facility] SUPPO RT Oct 06, 2018 L4TA [id number] DEHNEH,LY NN PATIENT [id number] [facility] CE [facility]GANIZ CLINI [facility] AND SUPPO RT Oct 06, [id number] DEHNTAMEKALY NN PATIENT [id number] REPLACED BY [facility] CE ORGANIZ CLINI CHRISTINE AND SUPPO RT Oct 06, [id number] DEHNEH,LY NN PATIENT G210 BCBSM ([facility]) [facility] SUPPO RT Oct 06, [id number] DEHNEH,LY NN PATIENT G210 BCBS (PROFESSIO NAL) [facility] MAINTENAN CE ORGANIZ CLINI CHRISTINE AND SUPPO RT Oct 06, [id number] DEHNEH,LY NN PATIENT MEDICARE (WNR) MEDICARE ) PART A Nov 19, 2006 PART A [id number] DEHNEH,LY NN PATIENT MEDICARE (WNR) MEDICARE () PART A Nov 19, 2006 PART A [id number] DEHNEH,LY NN PATIENT MEDICARE (WNR) MEDICARE () PART A Nov 19, 2006 PART A [id number] DEHNEH,LY NN PATIENT MEDICARE (WN) MEDICARE ) PART B Nov 19, 2006 PART B [id number] DEHNEH,LY NN PATIENT MEDICARE (WNR) MEDICARE () PART A Nov 19, 2006 PART A [id number] DEHNEH,LY NN PATIENT MEDICARE (WNR) MEDICARE () PART A Nov 19, 2006 PART A [id number] DEHNEH,LY NN PATIENT MEDICARE (WNR) MEDICARE ) PART A Nov 19, 2006 PART A [id number] DEHNEH,LY NN PATIENT MEDICARE (WNR) MEDICARE () PART A Nov 19, 2006 PART A [id number] DEHNEH,LY NN PATIENT MEDICARE (WNR) MEDICARE () PART B Nov 19, 2006 PART B [id number] [phone] DEHNEH,LY NN PATIENT Selected Encounter This section includes the information on record at [place] for the Encounter. Date/Time Encounter Type Encounter Description Reason Pro vider Source Jan 03, 2024 02:10 PM Outpatient Encounter PRIMARY CARE/MEDICINE IHE Encounter Template Text not used by [place] Plan of Treatment: Future Appointments (+ 6 months) and Future Tests (+/- 45 days) The Plan of Treatment section includes future care activities for the patient from all [place] [facility]. This section includes future [...] 05, 2024 09:30 AM AMBULATORY - MEDICINE [facility] Feb 22, 2024 01:00 PM AMBULATORY - MEDICINE [facility] Feb 25, 2024 01:00 PM AMBULATORY - MEDICINE [facility] Feb 25, 2024 03:00 PM AMBULATORY - PSYCHIATRY [facility] Mar 10, 2024 09:15 AM AMBULATORY - MEDICINE [facility] Mar 13, 2024 03:00 PM AMBULATORY - MEDICINE [facility] Apr 03, 2024 02:30 PM [...] of theEncounter. The data comes from all [facility]. Test Date/Time Test Type Test Details Facility Name Dec 11, 2023 12:00 AM Laboratory - Chemi rich Order OCCULT BLOOD FIT X1 SCREEN (MFP ONLY) STOOL FECES [facility] Jan 01, 2024 04:51 PM Consult Order COMMUNITY CARE-GI GENERAL Cons Migratory Worker's Choice [place] Social History: Smoking Status (Most current) and [...] 11, 2022 02:50 PM [facility] Tobacco Use History This section includes a history of the smoking, or tobacco-related health factors, that were collected on or before the date of the Encounter. The data comes from the [place] facility where the Encounter took place. Date/Time Smoking Status/Tobacco Use Comment Barb gonzalez Dec 05, 2019 01:53 PM VA-TOBACCO NEVER USED [facility] W[facility] May 26, 2016 02:32 PM LIFETIME NON-TOBACCO USER [facility] Encounter Notes: All associated encounter notes This section contains the clinical notes associated to the Encounter. Date/Time Encounter Note(s) Provider Source Jan 03, 2024 02:10 PM NURSING NOTE: LOCAL TITLE: NURSING NOTE STANDARD TITLE: NURSING NOTE DATE OF NOTE: JAN 03, 2024@14:10 ENTRY DATE: JAN 03, 2024@14:10:42 AUTHOR: VALERIA CORONA EXP COSIGNER: URGENCY: STATUS: COMPLETED Spoke with Lillian, introduced myself and my role and mentioned that she has not had a mammogram since 2020 and wondered if she would like us to order one for her. She stated that she is overwhelmed with medical appts between her and her daughter who is disabled. Last week she attened 12 medical visits alone. she is not oncerned about her beasts at this point because she has so many other helath issues and asked me to call her in 6 months. I told her I would and tickler reminder set. also told that if things change and she would like one sooner she can call her PACT team and we can order one for her. she agreeds with plan. /farhan/ Valeria Corona, RN, BSN Women's Healthcare Navigator, RN Signed: 01/03/2024 14:13 VALERIA CORONAFIELD
--- OUTSIDE RECORDS SUMMARY | 2024-03-10 09:26 | XMS_ITS | Encounter Summary ---
Author Name [place] Address [address] [place] [address] Care Team Providers Care Search Engine Optimization Consultant Name Role Phone GARRETT GOOD Primary [...] Boykin's Name Patient's Relationship to Policy Boykin [facility] ORGANIZ HMO Oct 06, 2018 HMO [id number] MEREDITH KU NN PATIENT ANTHEM BCBS CT FEDERAL PREFERRED PROVIDER ORGANIZAT ION (PPO) BASIC FAMIL Y Jan 31, 2015 112 [id number] MEREDITH KU NN PATIENT ANTHEM BCBS OF CT (BLUECARD) HIGH DEDUCTIBL E HEALTH PLAN CLINI [facility]STINE & SUP HDHP Oct 06, 2018 [id number] [phone] MEREDITH KU NN PATIENT BCBS [place] HIGH DEDUCTIBL E HEALTH PLAN CLINI [facility]INE AND BLAKE HDHP Oct 06, 2018 [id number] MEREDITH KU NN PATIENT BCBS OF [place] HIGH DEDUCTIBL E HEALTH PLAN CLINI CHRISTINE SUPP HDHP Oct 06, [id number] DELUISITOLY NN PATIENT [place]BS OF [place]/[address] [facility] CE ORGANIZ CLINI CHRISTINE AND SUPPO RT Oct 06, [id number] DEMEREDITH JORGE NN PATIENT BCBS OF [facility] PREFERRED PROVIDER ORGANIZAT ION (PPO) BASIC FAMIL Y Jan 31, 2015 [id number] DEHNTAMEKALY NN PATIENT [place] FEPRX PLAN PRESCRIPT ION BCBS FEP Jan 31, 2015 [id number] ELMIRALY NN PATIENT CAREMARK-F EP BCBS PRESCRIPT ION BCBS FEP PLAN Jan 31, 2015 [id number] ELMIRALY NN PATIENT EXPRESS SCRIPTS PRESCRIPT ION HMO Oct 06, 2018 L4TA [id number] DELUISITOLY NN PATIENT EXPRESS SCRIPTS PRESCRIPT ION CLINI [facility] AND SUPPO RT Sep 19, 2018 L4TA [id number] DELUISITOLY NN PATIENT EXPRESS SCRIPTS ([id number]) PRESCRIPT ION HDHP Oct 06, 2018 L4TA [id number] DEHNEHLY NN PATIENT EXPRESS SCRIPTS ([id number]) PRESCRIPT ION L4TA Oct 06, 2018 L4TA [id number] DEHNEHLY NN PATIENT EXPRESS SCRIPTS ([id number]) PRESCRIPT ION L4TA HDHP Oct 06, 2018 L4TA [id number] DELUISITOLY NN PATIENT EXPRESS SCRIPTS RX PRESCRIPT ION CLINI [facility] AND SUPPO RT Oct 06, 2018 L4TA [id number] DEHNEH,LY NN PATIENT [id number] [facility] CE ORGANIZ CLINI [facility] AND SUPPO RT Oct 06, [id number] DEHNTAMEKALY NN PATIENT [id number] [facility] CE ORGANIZ CLINI CHRISTINE AND SUPPO RT Oct 06, [id number] DEHNEH,LY NN PATIENT G210 BCBS ([facility] SUPPO RT Oct 06, 2018 [id number] DEHNEH,LY NN PATIENT G210 BCBS (PROFESSIO NAL) [facility] MAINTENAN CE ORGANIZ CLINI CHRISTINE AND SUPPO RT Oct 06, [id number] DEHNEH,LY NN PATIENT MEDICARE (WNR) MEDICARE ) PART A Nov 19, 2006 PART A [id number] DEHNEH,LY NN PATIENT MEDICARE (WNR) MEDICARE ) PART A Nov 19, 2006 PART A [id number] DEHNEH,LY NN PATIENT MEDICARE (WN) MEDICARE ) PART B Nov 19, 2006 PART B [id number] DEHNEH,LY NN PATIENT MEDICARE ([facility]) MEDICARE ) PART A Nov 19, 2006 PART A [id number] DEHNEH,LY NN PATIENT MEDICARE (WNR) MEDICARE () PART A Nov 19, 2006 PART A [id number] DEHNEH,LY NN PATIENT MEDICARE (WNR) MEDICARE () PART A Nov 19, 2006 PART A [id number] DEHNEH,LY NN PATIENT MEDICARE (WN) MEDICARE ) PART A Nov 19, 2006 PART A [id number] DEHNEH,LY NN PATIENT MEDICARE (WNR) MEDICARE ) PART A Nov 19, 2006 PART A [id number] DEHNEH,LY NN PATIENT MEDICARE (WNR) MEDICARE ) PART B Nov 19, 2006 PART B [id number] DEHNEH,LY NN PATIENT Selected Encounter This section includes the information on record at [place] for the Encounter. Date/Time Encounter Type Encounter Description Reason Pro vider Source Jan 03, 2024 01:27 PM Outpatient Encounter PRIMARY CARE/MEDICINE IHE Encounter Template Text not used by [place] Plan of Treatment: Future Appointments (+ 6 months) and Future Tests (+/- 45 days) The Plan of Treatment section includes future care activities for the patient from all [place] [facility]. This section includes future appointments and future orders which are active, pending or scheduled. Future Appointments This section includes appointments that were scheduled to occur 6 months from the date of the Encounter, up to a maximum of 20 appointments. The data comes from all [facility] facilities. Appointment Date/Time Appointment Type Appointme nt Facility Name Feb 05, 2024 09:30 AM AMBULATORY - MEDICINE [facility] Feb 22, 2024 01:00 PM AMBULATORY - MEDICINE [facility] Feb 25, 2024 01:00 PM [facility]UL[facility] Feb 25, 2024 03:00 PM AMBULATORY - PSYCHIATRY [facility] Mar 10, 2024 09:15 AM AMBULATORY - [facility]IC[facility] Mar 13, 2024 03:00 PM AMBULAT[facility] - [facility] Apr 03, 2024 02:30 PM AMBULATORY [...] of theEncounter. The data comes from all [facility]. Test Date/Time Test Type Test Details Facility Name Dec 11, 2023 12:00 AM Laboratory - Chemi rich Order OCCULT BLOOD FIT X1 SCREEN (MFP ONLY) STOOL FECES [facility] Jan 01, 2024 04:51 PM Consult Order COMMUNITY CARE-GI GENERAL Cons Metal Rivet Machine Operator's Choice [place] Social History: Smoking Status (Most current) and Tobacco Use (All prior to encounter date) This section includes the most current, and the historical, smoking and tobacco- related health factors from the [place] facility where the Encounter took place. Current Smoking Status This section includes the most current smoking, or tobacco-related health factor, from the [place] facility where the Encounter took place. Date/Time Current Smoking Status Comment Rory ity Aug 11, 2022 02:50 PM [facility] Tobacco Use History This section includes a history of the smoking, or tobacco-related health factors, that were collected on or before the date of the Encounter. The data comes from the [place] facility where the Encounter took place. Date/Time Smoking Status/Tobacco Use Comment Barb gonzalez Dec 05, 2019 01:53 PM VA-TOBACCO NEVER USED [facility] May 26, 2016 02:32 PM LIFETIME NON-TOBACCO USER [facility] Encounter Notes: All associated encounter notes This section contains the clinical notes associated to the Encounter. Date/Time Encounter Note(s) Provider Source Jan 03, 2024 01:29 PM LETTERS: LOCAL TITLE: PATIENT LETTER (T) STANDARD TITLE: LETTERS DATE OF NOTE: JAN 03, 2024@13:29 ENTRY DATE: JAN 03, 2024@13:29:16 AUTHOR: MANOLO ECHOLS COSIGNER: URGENCY: STATUS: COMPLETED PATIENT LETTER (T) Has ADDENDA DEPARTMENT OF [facility] Toll Free Number Primary Care Telephone Assistance can be reached at extension [phone] [facility] scheduling can be reached at extension [phone] [facility] scheduling can be reached at ext [phone], [address] Date: JAN 03, 2024 Dear [place]: Our goal at the [facility] is to provide you with quality medical care. We have been trying to reach you unsuccessfully to schedule your follow up appt with your primary care provider GARRETT GOOD at the [facility], [address] [place] [address]. Please call us at Sunday through Sunday, 8am-4pm to schedule this appointment. Sincerely, 01/03/2024 ADDENDUM STATUS: COMPLETED THIS MACHINE FEED OPERATOR MAILED LETTER TO . /farhan/ DEL ECHOLS ADVANCED RIPENING ROOM HAND Signed: 01/03/2024 13:29 Sincerely, Your Primary Care Team [address] [address] [place] [address] [phone] [facility] [address] [place] [address] [place] [address] [phone] [facility] [address] [facility],1st Floor [address] [place] [address] [place] [address] [phone] DEL ECHOLS Jan 03, 2024 01:27 PM ADMINISTRATIVE NOT E: LOCAL TITLE: ADMINISTRATIVE NOTE STANDARD TITLE: ADMINISTRATIVE NOTE DATE OF NOTE: JAN 03, 2024@13:27 ENTRY DATE: JAN 03, 2024@13:28:04 AUTHOR: MANOLO ECHOLS COSIGNER: URGENCY: STATUS: COMPLETED THIS MACHINE FEED OPERATOR CALLED TO RESCHEDULED CX CL APPT WITH CWM/SO/PACT 7 PROVIDER. NO ANSWER, COULD NOT LEAVE A MESSAGE. THIS MACHINE FEED OPERATOR MAILED LETTER TO . /farhan/ DEL ECHOLS ADVANCED RIPENING ROOM HAND Signed: 01/03/2024 13:28 DEL ECHOLS CARLOS
--- OUTSIDE RECORDS SUMMARY | 2024-03-10 09:27 | XMS_ITS | Encounter Summary ---
Author Name [facility] of [facility] [place] [facility] [place] Organization [place] Address [address] [place] [address] Care Team Providers Care Target Setter Name Role Phone GARRETT GOOD Primary Care [...] Boykin's Name Patient's Relationship to Policy [facility] Oct 06, 2018 [id number] MEREDITH KU PATIENT ANTHEM BCBS CT FEDERAL PREFERRED PROVIDER ORGANIZAT ION (PPO) BASIC FAMIL Y Jan 31, 2015 [id number] MEREDITH KU NN PATIENT ANTHEM BCBS OF CT (BLUECARD) HIGH DEDUCTIBL E HEALTH PLAN CLINI [facility] & SUP HDHP Oct 06, 2018 [id number] MEREDITH KU NN PATIENT BCBS [place] HIGH DEDUCTIBL E HEALTH PLAN CLINI [facility] AND [place]LAKE HDHP Oct 06, 2018 [id number] MEREDITH KU PATIENT BCBS OF [place] HIGH DEDUCTIBL E HEALTH PLAN CLINI CHRISTINE SUPP HDHP Oct 06, 2018 [id number] LCMEREDITH JORGE NN PATIENT BCBS OF [place]/Admazely [facility] CE ORGANIZ CLINI CHRISTINE AND SUPPO RT Oct 06, 2018 [id number] MEREDITH KU NN PATIENT BCBS OF [facility] PREFERRED PROVIDER ORGANIZAT ION (PPO) BASIC FAMIL Y Jan 31, 2015 [id number] ELMIRALY NN PATIENT [place] FEPRX PLAN PRESCRIPT ION BCBS FEP Jan 31, 2015 [id number] MEREDITH KU NN PATIENT [place]-F EP BCBS PRESCRIPT ION BCBS FEP PLAN Jan 31, 2015 [id number] MEREDITH KU NN PATIENT EXPRESS SCRIPTS PRESCRIPT ION HMO Oct 06, 2018 L4TA [id number] ELMIRALY NN PATIENT EXPRESS SCRIPTS PRESCRIPT ION CLINI [facility] AND SUPPO RT Sep 19, 2018 L4TA [id number] DEMEREDITH JORGE NN PATIENT EXPRESS SCRIPTS ([id number]) PRESCRIPT ION HDHP Oct 06, 2018 L4TA [id number] ELMIRALY NN PATIENT EXPRESS SCRIPTS ([id number]) PRESCRIPT ION L4TA Oct 06, 2018 L4TA [id number] ELMIRALY NN PATIENT EXPRESS SCRIPTS ([id number]) PRESCRIPT ION L4TA HDHP Oct 06, 2018 L4TA [id number] MEREDITH KU NN PATIENT EXPRESS SCRIPTS RX PRESCRIPT ION CLINI [facility] AND SUPPO RT Oct 06, 2018 L4TA [id number] DEHNTAMEKALY NN PATIENT [id number] [facility] CE ORGANIZ CLINI CHRISTINE AND SUPPO RT Oct 06, 2018 [id number] DELUISITOLY NN PATIENT [id number] [facility] CE ORGANIZ CLINI CHRISTINE AND SUPPO RT Oct 06, 2018 [id number] ATTILATAMEKALY NN PATIENT G210 BCBS ([facility] CE ORGANIZ CLINI CHRISTINE AND SUPPO RT Oct 06, 2018 [id number] DEHNEH,LY NN PATIENT G210 [facility] ([facility] NAL) [facility] CL[facility] AND SUPPO RT Oct 06, 2018 [id number] DEHNEH,LY NN PATIENT MEDICARE (WNR) MEDICARE () PART A Nov 19, 2006 PART A [id number] DEHNEH,LY NN PATIENT MEDICARE (WNR) MEDICARE () PART A Nov 19, 2006 PART A [id number] DEHNEH,LY NN PATIENT MEDICARE (WNR) MEDICARE () PART A Nov 19, 2006 PART A [id number] DEHNEH,LY NN PATIENT MEDICARE (WNR) MEDICARE () PART A Nov 19, 2006 PART A [id number] DEHNEH,LY NN PATIENT MEDICARE (WNR) MEDICARE () PART B Nov 19, 2006 PART B [id number] DEHNEH,LY NN PATIENT MEDICARE (WNR) MEDICARE () PART A Nov 19, 2006 PART A [id number] [phone] DEHNEH,LY NN PATIENT MEDICARE (WNR) MEDICARE () PART A Nov 19, 2006 PART A [id number] DEHNEH,LY NN PATIENT MEDICARE (WNR) MEDICARE () PART A Nov 19, 2006 PART A [id number] DEHNEH,LY NN PATIENT MEDICARE (WNR) MEDICARE () PART B Nov 19, 2006 PART B [id number] DEHNEH,LY NN PATIENT Selected Encounter This section includes the information on record at [place] for the Encounter. Date/Time Encounter Type Encounter Description Reason Pro vider Source IHE Encounter Template Text not used by [place]
--- OUTSIDE RECORDS SUMMARY | 2024-03-10 09:27 | XMS_ITS | Encounter Summary ---
Author Name Department of Veter[place] Organization Department of [place] Address [address] [place] [address] Care Team Providers Care Lap Winder Name Role Phone GARRETT GOOD Primary Care [...] CE ORGANIZ HMO Oct 06, 2018 HMO [id number] [phone] MEREDITH KU NN PATIENT ANTHEM BCBS CT FEDERAL PREFERRED PROVIDER ORGANIZAT ION (PPO) BASIC FAMIL Y Jan 31, 2015 [id number] MEREDITH KU NN PATIENT ANTHEM BCBS OF CT (BLUECARD) HIGH DEDUCTIBL E HEALTH PLAN CLINI [facility] & SUP HDHP Oct 06, 2018 [id number] MEREDITH KU NN PATIENT BCBS [place] HIGH DEDUCTIBL E HEALTH PLAN CLINI [facility] [place] HDHP Oct 06, 2018 [id number] [phone] MEREDITH KU NN PATIENT [place] HIGH DEDUCTIBL E HEALTH PLAN CLINI CHRISTINE SUPP HDHP Oct 06, [id number] [phone] DELUISITOLY NN PATIENT BCBS OF [facility] CE ORGANIZ CLINI CHRISTINE AND SUPPO RT Oct 06, [id number] DEMEREDITH JORGE NN PATIENT BCBS OF [facility] PREFERRED PROVIDER ORGANIZAT ION (PPO) BASIC FAMIL Y Jan 31, 2015 [id number] DEHNTAMEKALY NN PATIENT [place] FEPRX PLAN PRESCRIPT ION BCBS FEP Jan 31, 2015 [id number] MEREDITH KU NN PATIENT [place]-F EP BCBS PRESCRIPT ION BCBS FEP PLAN Jan 31, 2015 [id number] ELMIRALY NN PATIENT EXPRESS SCRIPTS PRESCRIPT ION HMO Oct 06, 2018 L4TA [id number] DELUISITOLY NN PATIENT EXPRESS SCRIPTS PRESCRIPT ION CLINI [facility] AND SUPPO RT Sep 19, 2018 L4TA [id number] DEHNTAMEKALY NN PATIENT EXPRESS SCRIPTS ([id number]) PRESCRIPT ION HDHP Oct 06, 2018 L4TA [id number] DEHNEHLY NN PATIENT EXPRESS SCRIPTS ([id number]) PRESCRIPT ION L4TA Oct 06, 2018 L4TA [id number] DEHNEHLY NN PATIENT EXPRESS SCRIPTS ([id number]) PRESCRIPT ION L4TA HDHP Oct 06, 2018 L4TA [id number] DEHNTAMEKALY NN PATIENT EXPRESS SCRIPTS RX PRESCRIPT ION CLINI [facility] AND SUPPO RT Oct 06, 2018 L4TA [id number] DEHNEH,LY NN PATIENT [id number] [facility] CE ORGANIZ CLINI CHRISTINE AND SUPPO RT Oct 06, [id number] DENEREYDATAMEKALY NN PATIENT [id number] [facility] CE ORGANIZ CLINI CHRISTINE AND SUPPO RT Oct 06, [id number] DEHNEH,LY NN PATIENT G210 BCBS ([facility]) [facility] CE ORGANIZ CLINI CHRISTINE AND SUPPO RT Oct 06, [id number] DEHNEH,LY NN PATIENT G210 BCBS ([facility]ESSIO NAL) [facility] AND SUPPO RT Oct 06, [id number] DEHNEH,LY NN PATIENT MEDICARE (WNR) MEDICARE ) PART A Nov 19, 2006 PART A [id number] DEHNEH,LY NN PATIENT MEDICARE (WNR) MEDICARE () PART A Nov 19, 2006 PART A [id number] DEHNEH,LY NN PATIENT MEDICARE (WNR) MEDICARE () PART A Nov 19, 2006 PART A [id number] DEHNEH,LY NN PATIENT MEDICARE (WN) MEDICARE ) PART B Nov 19, 2006 PART B [id number] DEHNEH,LY NN PATIENT MEDICARE (WNR) MEDICARE () PART A Nov 19, 2006 PART A [id number] DEHNEH,LY NN PATIENT MEDICARE (WNR) MEDICARE () PART A Nov 19, 2006 PART A [id number] DEHNEH,LY NN PATIENT MEDICARE (WNR) MEDICARE () PART A Nov 19, 2006 PART A [id number] DEHNEH,LY NN PATIENT MEDICARE (WNR) MEDICARE () PART A Nov 19, 2006 PART A [id number] DEHNEH,LY NN PATIENT MEDICARE (WNR) MEDICARE () PART B Nov 19, 2006 PART B [id number] DEHNEH,LY NN PATIENT Selected Encounter This section includes the information on record at [place] for the Encounter. Date/Time Encounter Type Encounter Description Reason Pro vider Source Jan 31, 2024 02:13 PM Outpatient Encounter COMMUNITY CARE CONSULT IHE Encounter Template Text not used by VA Plan of Treatment: Future Appointments (+ 6 months) and Future Tests (+/- 45 days) The Plan of Treatment section includes future care activities for the patient from [facility] [place] [facility]. This section includes future appointments and future orders which are active, pending or scheduled. Future Appointments This section includes appointments that were scheduled to occur 6 months from the date of the Encounter, up to a maximum of 20 appointments. The data comes from all [facility]. Appointment Date/Time Appointment Type Appointme nt Facility Name Feb 05, 2024 09:30 AM AMBULATORY - MEDICINE [place] [facility] [place] [facility] Feb 22, 2024 01:00 PM AMBULATORY - MEDICINE [facility] Feb 25, 2024 01:00 PM AMBULATORY - MEDICINE [facility] [place] [facility] Feb 25, 2024 03:00 PM AMBULATORY - PSYCHIATRY [facility] Mar 10, 2024 09:15 AM AMBULATORY - MEDICINE [facility] [place] [facility] Mar 13, 2024 03:00 PM AMBULATORY - MEDICINE [facility] [place] [facility] Apr 03, 2024 02:30 PM AMBULATORY - PSYCHIATRY [facility] Jul 28, 2024 01:00 PM AMBULATORY - MEDICINE [facility] Active, Pending, and Scheduled Orders This section includes a listing of several types of active, pending, and scheduled orders, including clinic medications orders, diagnostic test orders, procedure orders and consult orders; where the start date of the order is 45 days before the date of the Encounter or 45 days after the date of theEncounter. The data comes from all [facility]. Test Date/Time Test Type Test Details Facility Name Jan 01, 2024 04:51 PM Consult Order COMMUNITY CARE-GI GENERAL Cons Leaf Sticker's Choice [facility] Feb 22, 2024 12:00 AM Laboratory - Chemistry Order BASIC METABOLIC PANEL (fasting) BLOOD (SST-SERUM) [facility] Feb 22, 2024 12:00 AM Laboratory - Chemistry Order LIPID PANEL FASTING BLOOD (SST-SERUM) [facility] Feb 22, 2024 12:00 AM Laboratory - Chemistry Order LIVER FUNCTION BLOOD (SST-SERUM) [facility] Feb 22, 2024 12:00 AM Laboratory - Chemistry Order VITAMIN D (25-OH) BLOOD (SST-SERUM) [facility] Feb 22, 2024 12:00 AM Laboratory - Chemistry Order CBC BLOOD (LAV-BLOOD) [facility] Feb 22, 2024 12:00 AM Laboratory - Chemistry Order TSH BLOOD (SST-SERUM) [facility] Feb 22, 2024 12:00 AM Laboratory - Chemistry Order HEMOGLOBIN A1C PANEL BLOOD (LAV-BLOOD) [facility] Feb 22, 2024 12:00 AM Laboratory - Chemistry Order MICROALBUMIN CREATININE RATIO PANEL URINE (RANDOM) [facility] Feb 27, 2024 01:24 PM Consult Order COMMUNITY CARE-DENTAL GENERAL Cons [facility] Social History: Smoking Status (Most [...] 11, 2022 02:50 PM VA-TOBACCO [facility] [place] [facility] Tobacco Use History This section includes a history of the smoking, or tobacco-related health factors, that were collected on or before the date of the Encounter. The data comes from the [place] facility where the Encounter took place. Date/Time Smoking Status/Tobacco Use Comment F acility Dec 05, 2019 01:53 PM [facility]ACCO [facility] [place] [facility] May 26, 2016 02:32 PM LIFETIME NON-TOBACCO USER [facility] [place] [facility] Encounter Notes: All associated encounter notes This section contains the clinical notes associated to the Encounter. Date/Time Encounter Note(s) Provider Source Jan 31, 2024 02:13 PM NONVA NOTE: LOCAL TITLE: [facility] SELF PRESENTING CARE COORD PLAN STANDARD TITLE: NONVA NOTE DATE OF NOTE: JAN 31, 2024@14:13 ENTRY DATE: JAN 31, 2024@14:13:37 AUTHOR: LEIGH BOYKIN COSIGNER: URGENCY: STATUS: COMPLETED Emergency Notification Intake Date Presenting to the Facility: Nov Method of Contact: Notified from ECR worklist Notification ID: [id number] [facility] Referral #: [id number] [facility] Hospital Name: Hospital: [facility] Address: City: [place] State: [place] Zip Code: Phone : Community Facility Point of Contact: Name: Carissa Phone: Chief complaint: swollen hemorrhoids Primary Diagnosis: Disposition Discharged Date of discharge: Nov Discharge to Comment: ER Only /farhan/ LEIGH MAGALLON Signed: 01/31/2024 14:15 Receipt Acknowledged By: 01/31/2024 15:21 /farhan/ Daniela CASTILLO,RN,CCM TRANSFER/TRAVELING COORDINATOR LEIGH BOYKIN [place]
--- OUTSIDE RECORDS SUMMARY | 2024-03-10 09:27 | XMS_ITS | Encounter Summary ---
Author Name [place] Address [address] [place] [address] Care Team Providers Care Physical Medicine Specialist Name Role Phone GARRETT GOOD Primary [...] Bokyin's Name Patient's Relationship to Policy [facility]GANIZ H[facility] Oct 06, 2018 HMO [id number] [phone] MEREDITH KU NN PATIENT ANTHEM BCBS CT FEDERAL PREFERRED PROVIDER ORGANIZAT ION (PPO) BASIC FAMIL Y Jan 31, 2015 112 [id number] MEREDITH KU NN PATIENT ANTHEM BCBS OF CT (BLUECARD) HIGH DEDUCTIBL E HEALTH PLAN CLINI CHRISTINE & SUP HDHP Oct 06, 2018 [id number] [phone] MEREDITH KU NN PATIENT BCBS [place] HIGH DEDUCTIBL E HEALTH PLAN CLINI [facility]INE AND [place]LAKE HDHP Oct 06, 2018 [id number] MEREDITH KU NN PATIENT BC[place] OF [place] HIGH DEDUCTIBL E HEALTH PLAN CLINI CHRISTINE SUPP HDHP Oct 06, [id number] DELUISITOLY NN PATIENT BCBS OF [place]/[employer] [facility] CE ORGANIZ CLINI CHRISTINE AND SUPPO RT Oct 06, [id number] [phone] DEMEREDITH JORGE NN PATIENT BCBS OF [facility] PREFERRED PROVIDER ORGANIZAT ION (PPO) BASIC FAMIL Y Jan 31, 2015 [id number] DEHNTAMEKALY NN PATIENT [place] FEPRX PLAN PRESCRIPT ION BCBS FEP Jan 31, 2015 [id number] ELMIRALY NN PATIENT [place]-F EP BCBS PRESCRIPT ION BCBS FEP PLAN Jan 31, 2015 [id number] ELMIRALY NN PATIENT EXPRESS SCRIPTS PRESCRIPT ION HMO Oct 06, 2018 L4TA [id number] [id number] DELUISITOLY NN PATIENT EXPRESS SCRIPTS PRESCRIPT ION CLINI [facility]RISTINE AND SUPPO RT Sep 19, 2018 L4TA [id number] DELUISITOLY NN PATIENT EXPRESS SCRIPTS ([id number]) PRESCRIPT ION HDHP Oct 06, 2018 L4TA [id number] DEHNEHLY NN PATIENT EXPRESS SCRIPTS ([id number]) PRESCRIPT ION L4TA Oct 06, 2018 L4TA [id number] DEHNEHLY NN PATIENT EXPRESS SCRIPTS ([id number]) PRESCRIPT ION L4TA HDHP Oct 06, 2018 L4TA [id number] DELUISITOLY NN PATIENT EXPRESS SCRIPTS RX PRESCRIPT ION CLINI CHRISTINE AND SUPPO RT Oct 06, 2018 L4TA [id number] DEHNEH,LY NN PATIENT [id number] [facility] CE ORGANIZ CLINI CHRISTINE AND SUPPO RT Oct 06, [id number] DEHNTAMEKALY NN PATIENT [id number] [facility] CE ORGANIZ CLINI CHRISTINE AND SUPPO RT Oct 06, [id number] DEHNEH,LY NN PATIENT G210 BCBS ([facility]) [facility] CE ORGANIZ CLINI CHRISTINE AND SUPPO RT Oct 06, 2018 [id number] DEHNEH,LY NN PATIENT G210 BCBS (PROFESSIO NAL) [facility] CE ORGANIZ CLINI CHRISTINE AND SUPPO RT Oct 06, [id number] DEHNEH,LY NN PATIENT MEDICARE (WNR) MEDICARE () PART A Nov 19, 2006 PART A [id number] DEHNEH,LY NN PATIENT MEDICARE (WNR) MEDICARE () PART A Nov 19, 2006 PART A [id number] DEHNEH,LY NN PATIENT MEDICARE (WNR) MEDICARE () PART B Nov 19, 2006 PART B [id number] DEHNEH,LY NN PATIENT MEDICARE (WN) MEDICARE ) PART A Nov 19, 2006 PART A [id number] DEHNEH,LY NN PATIENT MEDICARE (WNR) MEDICARE () PART A Nov 19, 2006 PART A [id number] DEHNEH,LY NN PATIENT MEDICARE (WNR) MEDICARE () PART A Nov 19, 2006 PART A [id number] DEHNEH,LY NN PATIENT MEDICARE (WNR) MEDICARE ) PART A Nov 19, 2006 PART A [id number] DEHNEH,LY NN PATIENT MEDICARE (WNR) MEDICARE () PART A Nov 19, 2006 PART A [id number] DEHNEH,LY NN PATIENT MEDICARE (WNR) MEDICARE () PART B Nov 19, 2006 PART B [id number] DEHNEH,LY NN PATIENT Selected Encounter This section includes the information on record at CT for the Encounter. Date/Time Encounter Type Encounter Description Reason Pro vider Source Jan 11, 2024 11:51 AM Outpatient Encounter PRIMARY CARE/MEDICINE IHE Encounter Template Text not used by CT Plan of Treatment: Future Appointments (+ 6 months) and Future Tests (+/- 45 days) The Plan of Treatment section includes future care activities for the patient [facility] This section includes future appointments and future orders which are active, pending or scheduled. Future Appointments This section includes appointments that were scheduled to occur 6 months from the date of the Encounter, up to a maximum of 20 appointments. The data comes from all [facility]. Appointment Date/Time Appointment Type Appointme nt Facility Name Feb 05, 2024 09:30 AM [facility] Feb 22, 2024 01:00 PM AMBULATORY - MEDICINE [facility] Feb 25, 2024 01:00 PM [facility] Feb 25, 2024 03:00 PM AMBULATORY - PSYCHIATRY [facility] Mar 10, 2024 09:15 AM [facility] Mar 13, 2024 03:00 PM [facility] Apr 03, 2024 02:30 PM AMBULATORY - PSYCHIATRY [facility] Active, Pending, and Scheduled Orders This section includes a listing of several types of active, pending, and scheduled orders, including clinic medications orders, diagnostic test orders, procedure orders and consult orders; where the start date of the order is 45 days before the date of the Encounter or 45 days after the date of theEncounter. The data comes from all [facility]. Test Date/Time Test Type Test Details Facility Name Dec 11, 2023 12:00 AM Laboratory - Chemi stry Order OCCULT BLOOD FIT X1 SCREEN (MFP ONLY) [facility] Jan 01, 2024 04:51 PM Consult Order COMMUNITY CARE-GI GENERAL Cons External Relations Director's Choice [facility] Feb 22, 2024 12:00 AM Laboratory - Chemi stry Order BASIC METABOLIC PANEL (fasting) BLOOD (SST-SERUM) [facility] Feb 22, 2024 12:00 AM Laboratory - Chemi stry Order LIPID PANEL FASTING BLOOD (SST-SERUM) [facility] Feb 22, 2024 12:00 AM Laboratory - Chemi stry Order LIVER FUNCTION BLOOD (SST-SERUM) [facility] Feb 22, 2024 12:00 AM Laboratory - Chemi stry Order CBC BLOOD (LAV-BLOOD) [facility] Feb 22, 2024 12:00 AM Laboratory - Chemi stry Order VITAMIN D (25-OH) BLOOD (SST-SERUM) [facility] Feb 22, 2024 12:00 AM Laboratory - Chemi stry Order TSH BLOOD (SST-SERUM) [facility] Feb 22, 2024 12:00 AM Laboratory - Chemi stry Order HEMOGLOBIN A1C PANEL BLOOD (LAV-BLOOD) [facility] Feb 22, 2024 12:00 AM Laboratory - Chemi stry Order MICROALBUMIN CREATININE RATIO PANEL URINE (RANDOM) [facility] Social History: Smoking Status (Most [...] 11, 2022 02:50 PM VA-TOBACCO NEVER USED [facility] Tobacco Use History This section includes a history of the smoking, or tobacco-related health factors, that were collected on or before the date of the Encounter. The data comes from the [place] facility where the Encounter took place. Date/Time Smoking Status/Tobacco Use Comment F acility Dec 05, 2019 01:53 PM VA-TOBACCO NEVER USED [facility] May 26, 2016 02:32 PM LIFETIME NON-TOBACCO USER [facility] Encounter Notes: All associated encounter notes This section contains the clinical notes associated to the Encounter. Date/Time Encounter Note(s) Provider Source Jan 11, 2024 11:51 AM ADMINISTRATIVE NOT E: LOCAL TITLE: ADMINISTRATIVE NOTE STANDARD TITLE: ADMINISTRATIVE NOTE DATE OF NOTE: JAN 11, 2024@11:51 ENTRY DATE: JAN 11, 2024@11:51:23 AUTHOR: MANOLO ECHOLS COSIGNER: URGENCY: STATUS: COMPLETED THIS DEVELOPMENT REPRESENTATIVE CALLED TO LET KNOW F2F APPT CWM/SO/PACT EIGHT PROVIDER APPT ON 01/16/2024 AT 14:30 WAS CANCELLED. NO ANSWER, LEFT MESSAGE FOR TO CALL AND RESCHEDULE APPT. /farhan/ DEL ECHOLS ADVANCED BIOLOGICAL SCIENCE TECHNICIAN Signed: 01/11/2024 11:52 DEL ECHOLS
--- OUTSIDE RECORDS SUMMARY | 2024-03-10 09:27 | XMS_ITS ---
Author Name [place] Address [address] [place] [address] Care Team Providers Care Bridges And Buildings Supervisor Name Role Phone GARRETT GOOD Primary [...] CARE CE ORGANIZ HMO Oct 06, 2018 HMO [id number] [phone] MEREDITH KU NN PATIENT ANTHEM BCBS CT FEDERAL PREFERRED PROVIDER ORGANIZAT ION (PPO) BASIC FAMIL Y Jan 31, 2015 [id number] MEREDITH KU NN PATIENT ANTHEM BCBS OF CT (BLUECARD) HIGH DEDUCTIBL E HEALTH PLAN CLINI [facility]INE & SUP HDHP Oct 06, 2018 [id number] [phone] MEREDITH KU NN PATIENT BCBS [place] HIGH DEDUCTIBL E HEALTH PLAN CLINI [facility]INE AND BLAKE HDHP Oct 06, 2018 [id number] MEREDITH KU NN PATIENT BCBS OF [place] HIGH DEDUCTIBL E HEALTH PLAN CLINI CHRISTINE SUPP HDHP Oct 06, [id number] [phone] DELUISITOLY NN PATIENT BCBS [facility] CE ORGANIZ CLINI CHRISTINE AND SUPPO RT Oct 06, [id number] DEMEREDITH JORGE NN PATIENT BCBS OF [facility] PREFERRED PROVIDER ORGANIZAT ION (PPO) BASIC FAMIL Y Jan 31, 2015 [id number] DEHNTAMEKALY NN PATIENT CAREMARK FEPRX PLAN PRESCRIPT ION BCBS FEP Jan 31, 2015 [id number] MEREDITH KU NN PATIENT CAREMARK-F EP BCBS PRESCRIPT ION BCBS FEP PLAN Jan 31, 2015 [id number] ELMIRALY NN PATIENT EXPRESS SCRIPTS PRESCRIPT ION HMO Oct 06, 2018 L4TA [id number] DELUISITOLY NN PATIENT EXPRESS SCRIPTS PRESCRIPT ION CLINI CHRISTINE AND SUPPO RT Sep 19, 2018 L4TA [id number] DEHNTAMEKALY NN PATIENT EXPRESS SCRIPTS ([id number]) PRESCRIPT ION HDHP Oct 06, 2018 L4TA [id number] DEHNEHLY NN PATIENT EXPRESS SCRIPTS ([id number]) PRESCRIPT ION L4TA Oct 06, 2018 L4TA [id number] DEHNEHLY NN PATIENT EXPRESS SCRIPTS ([id number]) PRESCRIPT ION L4TA HDHP Oct 06, 2018 L4TA [id number] DEHNTAMEKALY NN PATIENT EXPRESS SCRIPTS RX PRESCRIPT ION CLINI [facility]STINE AND SUPPO RT Oct 06, 2018 L4TA [id number] DEHNEH,LY NN PATIENT [id number] [facility] CE ORGANIZ CLINI CHRISTINE AND SUPPO RT Oct 06, [id number] DENEREYDATAMEKALY NN PATIENT [id number] [facility] CE ORGANIZ CLINI CHRISTINE AND SUPPO RT Oct 06, [id number] DEHNEH,LY NN PATIENT G210 BCBS ([facility] CL[facility] AND SUPPO RT Oct 06, [id number] DEHNEH,LY NN PATIENT G210 BCBS (PROFESSIO NAL) [facility] CE ORGANIZ CLINI CHRISTINE AND SUPPO RT Oct 06, [id number] DEHNEH,LY NN PATIENT MEDICARE (WNR) MEDICARE ) PART A Nov 19, 2006 PART A [id number] DEHNEH,LY NN PATIENT MEDICARE (WNR) MEDICARE ) PART A Nov 19, 2006 PART A [id number] DEHNEH,LY NN PATIENT MEDICARE (WNR) MEDICARE () PART B Nov 19, 2006 PART B [id number] DEHNEH,LY NN PATIENT MEDICARE (WN) MEDICARE ) PART A Nov 19, 2006 PART A [id number] DEHNEH,LY NN PATIENT MEDICARE (WNR) MEDICARE () PART A Nov 19, 2006 PART A [id number] DEHNEH,LY NN PATIENT MEDICARE (WNR) MEDICARE () PART A Nov 19, 2006 PART A [id number] DEHNEH,LY NN PATIENT MEDICARE (WNR) MEDICARE () PART A Nov 19, 2006 PART A [id number] DEHNEH,LY NN PATIENT MEDICARE (WNR) MEDICARE () PART A Nov 19, 2006 PART A [id number] DEHNEH,LY NN PATIENT MEDICARE (WNR) MEDICARE () PART B Nov 19, 2006 PART B [id number] DEHNEH,LY NN PATIENT Selected Encounter This section includes the information on record at [facility] for the Encounter. Date/Time Encounter Type Encounter Description Reason Pro vider Source Jan 14, 2024 03:55 PM Outpatient Encounter TELEPHONE CASE MANAGEMENT IHE Encounter Template Text not used by [facility] Plan of Treatment: Future Appointments (+ 6 months) and Future Tests (+/- 45 days) The Plan of Treatment section includes future care activities for the patient from all [place] [facility]. This section includes future appointments and future orders which are active, pending or scheduled. Future Appointments This section includes appointments that were scheduled to occur 6 months from the date of the Encounter, up to a maximum of 20 appointments. The data comes from all [facility]. Appointment Date/Time Appointment Type Appointme nt Facility Name Feb 05, 2024 09:30 AM AMBULATORY - MEDICINE [facility] Feb 22, 2024 01:00 PM AMBULATORY - MEDICINE [facility] Feb 25, 2024 01:00 PM [facility]BUL[facility] Feb 25, 2024 03:00 PM AMBULATORY - PSYCHIATRY [facility] Mar 10, 2024 09:15 AM AMBULATORY - MEDICINE [facility] Mar 13, 2024 03:00 PM [facility] Apr 03, 2024 02:30 PM AMBULATORY - [...] of theEncounter. The data comes from all [facility]. Test Date/Time Test Type Test Details Facility Name Dec 11, 2023 12:00 AM Laboratory - Chemistry Order OCCULT BLOOD FIT X1 SCREEN (MFP ONLY) STOOL FECES [facility] Jan 01, 2024 04:51 PM Consult Order COMMUNITY CARE-GI GENERAL Cons Powerhouse Engineer's Choice [place] Feb 22, 2024 12:00 AM Laboratory - Chemistry Order BASIC METABOLIC PANEL (fasting) BLOOD (SST-SERUM) [facility] Feb 22, 2024 12:00 AM Laboratory - Chemistry Order LIPID PANEL FASTING BLOOD (SST-SERUM) [facility] Feb 22, 2024 12:00 AM Laboratory - Chemistry Order LIVER FUNCTION BLOOD (SST-SERUM) [facility] Feb 22, 2024 12:00 AM Laboratory - Chemistry Order VITAMIN D (25-OH) BLOOD (SST-SERUM) [facility] Feb 22, 2024 12:00 AM Laboratory - Chemistry Order CBC BLOOD (LAV-BLOOD) [facility] Feb 22, 2024 12:00 AM Laboratory - Chemistry Order TSH BLOOD (SST-SERUM) [facility] Feb 22, 2024 12:00 AM Laboratory - Chemistry Order HEMOGLOBIN A1C PANEL BLOOD (LAV-BLOOD) [facility] Feb 22, 2024 12:00 AM Laboratory - Chemistry Order MICROALBUMIN CREATININE RATIO PANEL URINE (RANDOM) [facility] Feb 27, 2024 01:24 PM Consult Order COMMUNITY CARE-DENTAL GENERAL Cons Powerhouse Engineer's Choice [facility] Social History: Smoking Status (Most current) and [...] 11, 2022 02:50 PM VA-TOBACCO NEVER USED [facility] Tobacco Use History This section includes a history of the smoking, or tobacco-related health factors, that were collected on or before the date of the Encounter. The data comes from the [place] facility where the Encounter took place. Date/Time Smoking Status/Tobacco Use Comment F acayaz Dec 05, 2019 01:53 PM VA-TOBACCO [facility] [place] [facility] May 26, 2016 02:32 PM LIFETIME NON-TOBACCO USER [facility] Encounter Notes: All associated encounter notes This section contains the clinical notes associated to the Encounter. Date/Time Encounter Note(s) Provider Source Jan 14, 2024 03:55 PM TRANSFER SUMMARIZA TION NOTE: LOCAL TITLE: RATCHET SETTER/OCC/HOSPITAL NOTIFICATION NOTE STANDARD TITLE: TRANSFER SUMMARIZATION NOTE DATE OF NOTE: JAN 14, 2024@15:55 ENTRY DATE: JAN 14, 2024@15:56:03 AUTHOR: NALINI GONZALEZ EXP COSIGNER: URGENCY: STATUS: COMPLETED Naco presented to the ED at [facility] on 12/20 and discharged home same day no cheif complaint or dx was provided. /farhan/ NALINI GONZALEZ Registered Nurse Television Reporter Signed: 01/14/2024 15:56 Receipt Acknowledged By: 01/15/2024 08:33 /farhan/ NALINI [facility]
--- OUTSIDE RECORDS SUMMARY | 2024-03-10 09:28 | XMS_ITS | Encounter Summary ---
Author Name [place] Address [address] [place] [address] Care Team Providers Care Bearingizer Name Role Phone GARRETT GOOD Primary Care [...] Boykin's Name Patient's Relationship to Policy [facility] Oct 06, 2018 [id number] MEREDITH UK NN PATIENT ANTHEM BCBS CT FEDERAL PREFERRED PROVIDER ORGANIZAT ION (PPO) BASIC FAMIL Y Jan 31, 2015 [id number] MEREDITH KU NN PATIENT ANTHEM BCBS OF CT (BLUECARD) HIGH DEDUCTIBL E HEALTH PLAN CLINI CHRISTINE & SUP HDHP Oct 06, 2018 [id number] MEREDITH KU NN PATIENT BCBS [place] HIGH DEDUCTIBL E HEALTH PLAN CLINI CHRISTINE AND BLAKE HDHP Oct 06, 2018 [id number] MEREDITH KU NN PATIENT BCBS OF [place] HIGH DEDUCTIBL E HEALTH PLAN CLINI CHRISTINE SUPP HDHP Oct 06, [id number] DEMEREDITH JORGE NN PATIENT BCBS OF [place] [facility] CE ORGANIZ CLINI CHRISTINE AND SUPPO RT Oct 06, [id number] [phone] MEREDITH KU NN PATIENT BCBS OF [facility] PREFERRED PROVIDER ORGANIZAT ION (PPO) BASIC FAMIL Y Jan 31, 2015 [id number] DELUISITOLY NN PATIENT [place]ARK FEPRX PLAN PRESCRIPT ION BCBS FEP Jan 31, 2015 [id number] MEREDITH KU NN PATIENT CAREMARK-F EP BCBS PRESCRIPT ION BCBS FEP PLAN Jan 31, 2015 [id number] ELMIRALY NN PATIENT EXPRESS SCRIPTS PRESCRIPT ION HMO Oct 06, 2018 L4TA [id number] ELMIRALY NN PATIENT EXPRESS SCRIPTS PRESCRIPT ION CLINI [facility]STINE AND SUPPO RT Sep 19, 2018 L4TA [id number] DELUISITOLY NN PATIENT EXPRESS SCRIPTS ([id number]) PRESCRIPT ION HDHP Oct 06, 2018 L4TA [id number] DELUISITOLY NN PATIENT EXPRESS SCRIPTS ([id number]) PRESCRIPT ION L4TA Oct 06, 2018 L4TA [id number] DEHNEHLY NN PATIENT EXPRESS SCRIPTS ([id number]) PRESCRIPT ION L4TA HDHP Oct 06, 2018 L4TA [id number] DELUISITOLY NN PATIENT EXPRESS SCRIPTS RX PRESCRIPT ION CLINI [facility]STINE AND SUPPO RT Oct 06, 2018 L4TA [id number] DEHNTAMEKA,LY NN PATIENT [id number] [facility] CE ORGANIZ CLINI CHRISTINE AND SUPPO RT Oct 06, [id number] DENEREYDATAMEKALY NN PATIENT [id number] [facility] CE ORGANIZ CLINI CHRISTINE AND SUPPO RT Oct 06, [id number] DEHNEH,LY NN PATIENT G210 BCBSM ([facility]) [facility] CE ORGANIZ CLINI CHRISTINE AND SUPPO RT Oct 06, 2018 [id number] DEHNEH,LY NN PATIENT G210 BCBSM (PROFESSIO NAL) [facility]GAN[facility] CL[facility]STINE AND SUPPO RT Oct 06, [id number] DEHNEH,LY NN PATIENT MEDICARE (WNR) MEDICARE () PART A Nov 19, 2006 PART A [id number] DEHNEH,LY NN PATIENT MEDICARE (WNR) MEDICARE () PART A Nov 19, 2006 PART A [id number] DEHNEH,LY NN PATIENT MEDICARE (WNR) MEDICARE () PART A Nov 19, 2006 PART A [id number] DEHNEH,LY NN PATIENT MEDICARE (WN) MEDICARE ) PART A Nov 19, 2006 PART A [id number] DEHNEH,LY NN PATIENT MEDICARE (WNR) MEDICARE () PART B Nov 19, 2006 PART B [id number] DEHNEH,LY NN PATIENT MEDICARE (WNR) MEDICARE () PART A Nov 19, 2006 PART A [id number] DEHNEH,LY NN PATIENT MEDICARE (WNR) MEDICARE ) PART A Nov 19, 2006 PART A [id number] DEHNEH,LY NN PATIENT MEDICARE (WNR) MEDICARE () PART A Nov 19, 2006 PART A [id number] [phone] DEHNEH,LY NN PATIENT MEDICARE (WNR) MEDICARE ) PART B Nov 19, 2006 PART B [id number] DEHNEH,LY NN PATIENT Selected Encounter This section includes the information on record at [place] for the Encounter. Date/Time Encounter Type Encounter Description Reason Provider Source Feb 05, 2024 11:16 AM FIT SPECTACLES MULTIFOCAL OPTOMETRY ICD-10-CM Z46.0 Encounter for fit/adjst of spectacles and contact lenses BOUBACAR STATON Encounter Template Text not used by [place] Assessments - Encounter Diagnoses This section includes the primary and secondary diagnoses documented for the Encounter. Date/Time Primary/Secondary Diagnosis Diagnosis Name Provider Source Feb 05, 2024 11:16 AM PRIMARY Encounter for fit/adjst of spectacles and contact lenses PAMELA SALES [facility] Plan of Treatment: Future Appointments (+ 6 months) and Future Tests (+/- 45 days) The Plan of Treatment section includes future care activities for the patient from all [place] [facility]. This section includes future appointments and future orders which are active, pending or scheduled. Future Appointments This section includes appointments that were scheduled to occur 6 months from the date of the Encounter, up to a maximum of 20 appointments. The data comes from all [facility]. Appointment Date/Time Appointment Type Appointme nt Facility Name Feb 22, 2024 01:00 PM AMBULATORY - MEDICINE [facility] Feb 25, 2024 01:00 PM AMBULATORY - MEDICINE [facility] [place] [facility] Feb 25, 2024 03:00 PM AMBULATORY - PSYCHIATRY [facility] Mar 10, 2024 09:15 AM AMBULATORY - MEDICINE [facility] [place] [facility] Mar 13, 2024 03:00 PM [facility] Apr 03, 2024 02:30 PM AMBULATORY - PSYCHIATRY [facility] Jul 28, 2024 01:00 PM AMBULATORY - MEDICINE [facility] Active, Pending, and Scheduled Orders This section includes a listing of several types of active, pending, and scheduled orders, including clinic medications orders, diagnostic test orders, procedure orders and consult orders; where the start date of the order is 45 days before the date of the Encounter or 45 days after the date of theEncounter. The data comes from all [facility]. Test Date/Time Test Type Test Details Facility Name Jan 01, 2024 04:51 PM Consult Order COMMUNITY CARE-GI GENERAL Cons Barrel Lapper[facility] Choice [place] Feb 22, 2024 12:00 AM Laboratory - Chemistry Order BASIC METABOLIC PANEL (fasting) BLOOD (SST-SERUM) [facility] Feb 22, 2024 12:00 AM Laboratory - Chemistry Order LIPID PANEL FASTING BLOOD (SST-SERUM) [facility] Feb 22, 2024 12:00 AM Laboratory - Chemistry Order LIVER FUNCTION BLOOD (SST-SERUM) [facility] Feb 22, 2024 12:00 AM Laboratory - Chemistry Order VITAMIN D (25-OH) BLOOD (SST-SERUM) [facility] Feb 22, 2024 12:00 AM Laboratory - Chemistry Order CBC BLOOD (LAV-BLOOD) [facility] Feb 22, 2024 12:00 AM Laboratory - Chemistry Order HEMOGLOBIN A1C PANEL BLOOD (LAV-BLOOD) [facility] Feb 22, 2024 12:00 AM Laboratory - Chemistry Order TSH BLOOD (SST-SERUM) [facility] Feb 22, 2024 12:00 AM Laboratory - Chemistry Order MICROALBUMIN CREATININE RATIO PANEL URINE (RANDOM) [facility] Feb 27, 2024 01:24 PM Consult Order COMMUNITY CARE-DENTAL GENERAL Cons Barrel Lapper's Choice [facility] Social History: Smoking Status (Most current) and Tobacco Use (All prior to encounter date) This section includes the most current, and the historical, smoking and tobacco- related health factors from the [place] facility where the Encounter took place. Current Smoking Status This section includes the most current smoking, or tobacco-related health factor, from the [place] facility where the Encounter took place. Date/Time Current Smoking Status Comment Facil ity Aug 11, 2022 02:50 PM VA-TOBACCO NEVER USED [facility] Tobacco Use History This section includes a history of the smoking, or tobacco-related health factors, that were collected on or before the date of the Encounter. The data comes from the [place] facility where the Encounter took place. Date/Time Smoking Status/Tobacco Use Comment F acility Dec 05, 2019 01:53 PM VA-TOBACCO NEVER USED [place] CNTR [facility] May 26, 2016 02:32 PM LIFETIME NON-TOBACCO USER [facility] Encounter Notes: All associated encounter notes This section contains the clinical notes associated to the Encounter. Date/Time Encounter Note(s) Provider Source Feb 05, 2024 11:16 AM OPTOMETRY NOTE: LOCAL TITLE: OPTOMETRY NOTE STANDARD TITLE: OPTOMETRY NOTE DATE OF NOTE: FEB 05, 2024@11:16 ENTRY DATE: FEB 05, 2024@11:16:26 AUTHOR: MIGUEL OLIVA EXP COSIGNER: URGENCY: STATUS: COMPLETED OPTOMETRY NOTE Has ADDENDA The quote provided below is for informational purposes only. Please verify prior to the creation of a purchase order. INDY KU 7567 RX INFORMATION OD -4.50 -1.25 X175 Add:+2.25 Pzm:0.00 Dir: Prz2:0.00 Dir2: OS -5.25 -1.25 X165 Add:+2.25 Pzm:0.00 Dir: Prz2:0.00 Dir2: FITTING INFORMATION FPD: NPD: Pleasants:R:30 L:31 SEG HT:R:23 L:23 Tint:None Shade:None VA Billable Items FRAME: FX111 LITTLE [id number] Right Lens: POLY VA PROGRESSIVE PHOTOCHROMIC VILLALBA 1.586 POLY Left Lens: POLY VA PROGRESSIVE PHOTOCHROMIC VILLALBA 1.586 POLY CLIN items Open Market - Open Market Frame 0004 - Progressive - Glass Plastic Poly 0005 - Transition --------- The quote provided below is for informational purposes only. Please verify prior to the creation of a purchase order. INDY KU 7567 RX INFORMATION OD 0.00 0.00 X Add:+2.25 Pzm:0.00 Dir: Prz2:0.00 Dir2: OS 0.00 0.00 X Add:+2.25 Pzm:0.00 Dir: Prz2:0.00 Dir2: FITTING INFORMATION FPD: NPD: Pleasants:R:30 L:31 SEG HT:R:21 L:21 Tint:None Shade:None VA Billable Items FRAME: TEACH PURPLE FADE [phone] Right Lens: POLY VA PROGRESSIVE PHOTOCHROMIC VILLALBA 1.586 POLY Left Lens: POLY VA PROGRESSIVE PHOTOCHROMIC VILLALBA 1.586 POLY CLIN items 0004 - Progressive - Glass Plastic Poly 0005 - Transition /farhan/ MIGUEL OLIVA MARKET INTELLIGENCE CONSULTANT Signed: 02/05/2024 11:16 Receipt Acknowledged By: 02/05/2024 13:03 /farhan/ PAMELA SALES OPTOMETRY TECH 02/05/2024 ADDENDUM STATUS: COMPLETED PDS Manager Review fit patient with 2 pair(s) of PAL eyeglasses on 02/05/2024. OPT HT entered consult(s) as requested for provider signature. /farhan/ PAMELA SALES OPTOMETRY TECH Signed: 02/05/2024 13:08 MIGUEL OLIVA [facility]
--- OUTSIDE RECORDS SUMMARY | 2024-03-10 09:28 | XMS_ITS | Encounter Summary ---
Author Name [facility] [facility] [place] Address [address] [place] [address] Care Team Providers Care Color Coater Name Role Phone GARRETT GOOD Primary Care [...] Boykin's Name Patient's Relationship to Policy [facility] ORGANIZ HMO Oct 06, 2018 O [id number] [phone] MEREDITH KU NN PATIENT ANTHEM BCBS CT FEDERAL PREFERRED PROVIDER ORGANIZAT ION (PPO) BASIC FAMIL Y Jan 31, 2015 [id number] MEREDITH KU NN PATIENT ANTHEM BCBS OF CT (BLUECARD) HIGH DEDUCTIBL E HEALTH PLAN [facility]I [facility]P HDHP Oct 06, 2018 [id number] MEREDITH KU NN PATIENT BCBS [place] HIGH DEDUCTIBL E HE[facility] PLAN [facility] [place] HDHP Oct 06, 2018 [id number] [phone] MEREDITH KU NN PATIENT BCBS OF [place] HIGH DEDUCTIBL E HEALTH PLAN CLINI [facility] SUPP HDHP Oct 06, 2018 [id number] [phone] DEMEREDITH JORGE NN PATIENT BC[place] OF [place] CE ORGANIZ CLIN[facility] SUPPO RT Oct 06, 2018 [id number] DEMEREDITH JORGE NN PATIENT BCBS OF [facility] PREFERRED PROVIDER ORGANIZAT ION (PPO) BASIC FAMIL Y Jan 31, 2015 [id number] DELUISITOLY NN PATIENT [place] FEPRX PLAN PRESCRIPT ION BCBS FEP Jan 31, 2015 [id number] MEREDITH KU NN PATIENT [place]-F EP BCBS PRESCRIPT ION BCBS FEP PLAN Jan 31, 2015 [id number] ELMIRALY NN PATIENT EXPRESS SCRIPTS PRESCRIPT ION HMO Oct 06, 2018 L4TA [id number] DELUISITOLY NN PATIENT EXPRESS SCRIPTS PRESCRIPT ION [facility] RT Sep 19, 2018 L4TA [id number] DELUISITOLY NN PATIENT EXPRESS SCRIPTS ([id number]) PRESCRIPT ION [facility] Oct 06, 2018 L4TA [id number] DEHNTAMEKALY NN PATIENT EXPRESS SCRIPTS ([id number]) PRESCRIPT ION L4TA Oct 06, 2018 L4TA [id number] DEHNTAMEKALY NN PATIENT EXPRESS SCRIPTS ([id number]) PRESCRIPT ION L4TA HD Oct 06, 2018 L4TA [id number] DELUISITOLY NN PATIENT EXPRESS SCRIPTS RX PRESCRIPT ION [facility] RT Oct 06, 2018 L4TA [id number] DEHNEH,LY NN PATIENT [id number] [facility] CE ORGANIZ CLINI [facility] AND SUPPO RT Oct 06, 2018 [id number] DEHNTAMEKALY NN PATIENT [id number] [facility] CE ORGANIZ CLINI [facility]STINE AND SUPPO RT Oct 06, [id number] DEHNEH,LY NN PATIENT [id number] BCBS ([facility]) [facility] CE ORGANIZ [facility] SUPPO RT Oct 06, [id number] DEHNEH,LY NN PATIENT G210 BCBSM ([facility] SUPPO RT Oct 06, [id number] DEHNEH,LY NN PATIENT MEDICARE (WN) MEDICARE ) PART A Nov 19, 2006 PART A [id number] DEHNEH,LY NN PATIENT MEDICARE (WNR) MEDICARE ) PART A Nov 19, 2006 PART A [id number] DEHNEH,LY NN PATIENT MEDICARE (WN) MEDICARE ) PART A Nov 19, 2006 PART A [id number] DEHNEH,LY NN PATIENT MEDICARE (WN) MEDICARE ) PART A Nov 19, 2006 PART A [id number] DEHNEH,LY NN PATIENT MEDICARE (WN) MEDICARE ) PART B Nov 19, 2006 PART B [id number] DEHNEH,LY NN PATIENT MEDICARE (WN) MEDICARE ) PART A Nov 19, 2006 PART A [id number] DEHNEH,LY NN PATIENT MEDICARE (WN) MEDICARE ) PART A Nov 19, 2006 PART A [id number] DEHNEH,LY NN PATIENT MEDICARE (WNR) MEDICARE ) PART A Nov 19, 2006 PART A [id number] DEHNEH,LY NN PATIENT MEDICARE (WN) MEDICARE ) PART B Nov 19, 2006 PART B [id number] DEHNEH,LY NN PATIENT Selected Encounter This section includes the information on record at [place] for the Encounter. Date/Time Encounter Type Encounter Description Reason Provider Source Feb 05, 2024 09:30 AM OFFICE O/P EST MOD 30 MIN OPTOMETRY ICD-10-CM E11.9 Type 2 diabetes mellitus without complications TIFFANY STATON [facility] Encounter Template Text not used by [place] Assessments - Encounter Diagnoses This section includes the primary and secondary diagnoses documented for the Encounter. 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 This section includes future appointments [...] 22, 2024 01:00 PM AMBULATORY - MEDICINE [facility] Feb 25, 2024 01:00 PM AMBULATORY - MEDICINE [facility] [place] [facility] Feb 25, 2024 03:00 PM AMBULATORY - PSYCHIATRY [facility] Mar 10, 2024 09:15 AM AMBULATORY - MEDICINE [place] C [facility] [facility] Mar 13, 2024 03:00 PM AMBULATORY - MEDICINE [facility] [facility] Apr 03, 2024 02:30 PM AMBULATORY - PSYCHIATRY [facility] Jul 28, 2024 01:00 PM AMBULATORY - MEDICINE [facility] Active, Pending, and Scheduled Orders This section includes a listing of several types of active, pending, and scheduled orders, including clinic medications orders, diagnostic test orders, procedure orders and consult orders; where the start date of the order is 45 days before the date of the Encounter or 45 days after the date of theEncounter. The data comes from all [place] treatment facilities. Test Date/Time Test Type Test Details Facility Name Jan 01, 2024 04:51 PM Consult Order [facility] Cons Customer Liaison's Choice [facility] Feb 22, 2024 12:00 AM Laboratory - Chemistry Order BASIC METABOLIC PANEL (fasting) BLOOD (SST-SERUM) [facility] Feb 22, 2024 12:00 AM Laboratory - Chemistry Order LIPID PANEL FASTING BLOOD (SST-SERUM) [facility] Feb 22, 2024 12:00 AM Laboratory - Chemistry Order LIVER FUNCTION BLOOD (SST-SERUM) [facility] Feb 22, 2024 12:00 AM Laboratory - Chemistry Order VITAMIN D (25-OH) BLOOD (SST-SERUM) [facility] Feb 22, 2024 12:00 AM Laboratory - Chemistry Order CBC BLOOD (LAV-BLOOD) [facility] Feb 22, 2024 12:00 AM Laboratory - Chemistry Order TSH BLOOD (SST-SERUM) [facility] Feb 22, 2024 12:00 AM Laboratory - Chemistry Order HEMOGLOBIN A1C PANEL BLOOD (LAV-BLOOD) [facility] Feb 22, 2024 12:00 AM Laboratory - Chemistry Order MICROALBUMIN CREATININE RATIO PANEL URINE (RANDOM) [facility] Feb 27, 2024 01:24 PM Consult Order [facility] [place] [facility] Social History: Smoking Status (Most current) [...] 11, 2022 02:50 PM VA-TOBACCO NEVER USED [place] [facility] [place] [facility] Tobacco Use History This section includes a history of the smoking, or tobacco-related health factors, that were collected on or before the date of the Encounter. The data comes from the [place] facility where the Encounter took place. Date/Time Smoking Status/Tobacco Use Comment F acility Dec 05, 2019 01:53 PM VA-TOBACCO NEVER USED [place] [facility] [place] [facility] May 26, 2016 02:32 PM LIFETIME NON-TOBACCO USER [place] [facility] [place] [facility] Encounter Notes: All associated encounter notes This section contains the clinical notes associated to the Encounter. Date/Time Encounter Note(s) Provider Source Feb 05, 2024 09:51 AM OPTOMETRY NOTE: LOCAL TITLE: OPTOMETRY NOTE STANDARD TITLE: OPTOMETRY NOTE DATE OF NOTE: FEB 05, 2024@09:51 ENTRY DATE: FEB 05, 2024@09:51:17 AUTHOR: AUSTEN STATON EXP COSIGNER: URGENCY: STATUS: COMPLETED Active problems - Computerized Problem List is the source for the followin. Chronic kidney disease stage 3 2. Pain of right knee joint 3. Dissociative disorder 4. External haemorrhoids 5. Diabetes Mellitus Type 2 (SCT 34589819) 6. Hyperlipidemia (SCT 61166432) 7. Anemia (SCT 179119190) 8. Venous thrombosis 9. Recurrent genital herpes simplex 10. Connective tissue disease 11. Osteoarthritis 12. Binge eating disorder 13. Tendinitis 14. Type II diabetes mellitus 15. Cholelithiasis 16. Myalgia * 17. Laparoscopy, Surgical, Appendectomy 18. Calcifying tendinitis of shoulder 19. Tendinitis * 20. Screening Mammogram for Malignant Neoplasms of the Breast, other 21. Recurrent major depression (SNOMED CT 82416693) 22. Attention-Deficit/Hyperactivit y Disorder NOS 23. Obesity (SNOMED CT 401025089) 24. Chronic post-traumatic stress disorder (SNOMED CT 702748146) 25. Fracture 26. Mastodynia * 27. ACCRETIONS ON TEETH 28. UNSPECIFIED DENTAL CARIES 29. Hysterectomy 30. Diabetes Mellitus Type II or unspecified 31. Hypercholesterolemia 32. Other and unspecified ovarian cyst 33. Temporomandibular Joint Syndrome 34. Complete External Hemorrhoidectomy 35. Asthma 36. Hypertension (SNOMED CT 72813362) 37. Anemia Active Outpatient Medications (including Supplies): Active Outpatient Medications Status 1) ACCU-CHEK GUIDE (GLUCOSE) TEST STRIP USE 1 STRIP TO TEST ACTIVE BLOOD SUGARS TWO TIMES A WEEK 2) CHOLECALCIF 25MCG (D3-1,000UNIT) TAB TAKE ONE TABLET BY ACTIVE MOUTH ONCE DAILY FOR VITAMIN SUPPLEMENTATION Indication: FOR VITAMIN D DEFICIENCY 3) DICLOFENAC NA 1% TOP GEL APPLY 2 GRAMS TOPICALLY FOUR TIMES ACTIVE (S) DAILY NEEDED FOR OSTEOARTHRITIS - USE DOSING CARD PROVIDED IN BOX 4) EMPAGLIFLOZIN 10MG TAB TAKE ONE TABLET BY MOUTH ONCE DAILY ACTIVE (S) Indication: FOR TYPE 2 DIABETES MELLITUS 5) ESCITALOPRAM OXALATE 20MG TAB TAKE ONE TABLET BY MOUTH ONCE ACTIVE DAILY FOR MOOD 6) MELATONIN 3MG CAP/TAB TAKE TWO CAPSULE/TABLET BY MOUTH AT ACTIVE BEDTIME NEEDED -FOR INSOMNIA 7) METFORMIN HCL 500MG 24HR SA TAB TAKE TWO TABLETS BY MOUTH ACTIVE ONCE DAILY Indication: FOR TYPE 2 DIABETES MELLITUS 8) QUETIAPINE FUMARATE 25MG TAB TAKE ONE TABLET BY MOUTH AT ACTIVE BEDTIME NEEDED FOR ANXIETY. YOU MAY TAKE UP TO THREE ADDITIONAL TABLETS AT BEDTIME IF NEEDED. Indication: FOR BIPOLAR DEPRESSION 9) TRAZODONE HCL 100MG TAB TAKE TWO TABLETS BY MOUTH AT BEDTIME ACTIVE NEEDED Indication: FOR INSOMNIA ASSOCIATED WITH DEPRESSION 10) VALACYCLOVIR HCL 500MG TAB TAKE ONE TABLET BY MOUTH ONCE ACTIVE DAILY Indication: FOR INFECTION CAUSED BY A VIRUS Active Non-VA Medications Status 1) Non-VA HYDROXYCHLOROQUINE SULFATE 200MG TAB 200MG BY MOUTH ACTIVE TWICE DAILY 11 Total Medications Allergies: ATIVAN, SIMVASTATIN All medications including those prescribed by outside VA's, community providers, and all OTC meds were reviewed and reconciled with patient to the best of their abilities. This 59 year old FEMALE is seen today for comprehensive eye examination. Medical, eye, personal, and social history are all reviewed and is contributory to today's visit for diabetes without retinopathy or macular edema either eye, bilateral cataracts as well as daily soft contact lens wear. She previously was on Plaquenil for connective tissue disease but decided to self discontinue approximately 12 months ago due to kidney disease. She does not plan to restart Plaquenil because of her kidney disease. Her last eye examination was here on December 25, 2022. Overall she feels her vision is quite good both with her contact lenses and glasses. Chief Complaint: Stopped taking Plaquenil approximately 12 months ago. Vision: With 20/20 right eye 20/20 left eye Without Correction Pupils, EOMS, confrontation juarez are all done and shows round reactive pupils without afferent pupillary defect with full extraocular motility and full confrontation juarez to finger counting each eye Current Wear: OD: -4.75 -1.25 axis 175 OS: -5.00 -1.25 axis 165 +2.25 add Refraction: OD: -4.50 -1.25 axis 175 20/20 OS: -5.25 -1.25 axis 165 20/20 +2.25 add 20/20 at 16 inches Tonometry: OD OS Time: PreTreatment IOP: OD OS Pachymetry: Anterior segment: Lids: Mild dermatochalasis and ptosis right left upper lid Conj: White and quiet each eye Cornea: Clear centrally without staining or pigment each eye AC: 3+ and quiet each eye Iris: Normal without transillumination defects each eye Lens: Trace nuclear sclerosis with rare cortical vacuoles each eye Vit: Clear each eye Fundus exam: Dilated: xxx Non dilated: C/D: 0.20 right eye 0.25 left eye with good color, distinct disc margins and no NVD Macula: No lipid, edema, thickening each eye A/V: 1/2 each eye Vessels: Normal each eye Periphery: No NVE, holes, tears, detachments each eye Impression: Diabetes without retinopathy or macular edema either eye. Stressed the importance of continued optimize control of blood sugar, blood pressure and cholesterol with healthy lifestyle. History of connective tissue disorder previously treated with Plaquenil which was self discontinued more than 11 months ago. Defer repeat diagnostic testing for Plaquenil toxicity given patient is no longer taking this medication. She understands if she were to restart Plaquenil she would need ophthalmic diagnostic testing to monitor for potential risk of retinal toxicity. She states that because of her kidney disease she does not plan to restart Plaquenil but understands if she did she would reach out to schedule diagnostic testing. Early nuclear sclerotic and cortical cataracts each eye not visually significant at present. Plan: Patient education as noted above. Reviewed exam findings now. Ordered new glasses today. Return in 12 months for repeat exam or sooner if need be. She understands if she were to restart Plaquenil she should call for required diagnostic testing. Education: Diabetes: Patient was educated regarding diabetes and related ocular complications including retinopathy and cataract formation as well as other related systemic complications. The importance of good blood sugar control, blood sugar testing as recommended by their PCP and the importance of timely follow up were all emphasized. Return to Clinic: 12 months or sooner if need be. Ophthalmic medication reconciliation: She is currently not taking or prescribed any ocular medications. Medication Reconciliation: Outpatient: Has the patient been taking medications as documented in the EMLR? YES: The patient has been taking medications as documented in the EMLR. Essential Medication List for Review used to complete this medication reconciliation. INCLUDED IN THIS LIST: Alphabetical list of active outpatient prescriptions dispensed from this [place] (local) and dispensed from another [place] or [facility] facility (remote) as well as inpatient [...] JLV. Allergies/ADRs (Tool #5) FACILITY ALLERGY/ADR -------- [facility] [place] [facility] AT[facility] SIMVASTATIN [facility] ACETAMINOPHEN/HYDROCODONE [facility] [place] [facility] SIMVASTATIN Med Recon NoGlossary (Tool #1) INCLUDED IN THIS LIST: Alphabetical list of active outpatient prescriptions dispensed from this [place] (local) and dispensed from another [place] or [facility] facility (remote) as well as inpatient orders (local pending and active), local clinic medications, locally documented non-VA medications, and local prescriptions that have or been discontinued in the past 90 days. Non-VA Meds Last Documented On: July 07, 2019 NOTE The display of VA prescriptions dispensed from another [place] or [facility] facility (remote) is limited to active outpatient prescription entries matched to National Drug File at the originating site and may not include some items such as investigational drugs, compounds, etc. NOT INCLUDED IN THIS LIST: Medications self-entered by the patient into personal health records (i.e. [employer]) are NOT included in this list. Non-VA medications documented outside this [place], remote inpatient orders (regardless of status) and remote clinic medications are NOT included in this list. The patient and provider must always discuss medications the patient is taking, regardless of where the medication was dispensed or obtained. OUTPT CHOLECALCIF 25MCG (D3-1,000UNIT) TAB (Status = Active) TAKE ONE TABLET BY MOUTH ONCE DAILY FOR VITAMIN SUPPLEMENTATION Rx# [id number] Last Released: 01/18/24 Qty/Days Supply: Rx Expiration Date: 09/11/24 Refills Remainin Indication: FOR VITAMIN D DEFICIENCY OUTPT DEXAMETHASONE 1MG TAB (Status = ) TAKE ONE TABLET BY MOUTH ONE TIME FOR TEST TO PREVENT INFLAMMATION/SWELLING Rx# [id number] Last Released: 11/13/23 Qty/Days Supply: 03/20 Rx Expiration Date: 12/08/23 Refills Remainin Indication: FOR TEST OUTPT DICLOFENAC NA 1% TOP GEL (Status = Active/Suspended) APPLY 2 GRAMS TOPICALLY FOUR TIMES DAILY NEEDED FOR OSTEOARTHRITIS - USE DOSING CARD PROVIDED IN BOX Rx# [id number] Last Released: 01/15/24 Qty/Days Supply: 100/30 Rx Expiration Date: 09/11/24 Refills Remainin OUTPT EMPAGLIFLOZIN 10MG TAB (Status = Active/Suspended) TAKE ONE TABLET BY MOUTH ONCE DAILY FOR TYPE 2 DIABETES MELLITUS Rx# [id number] Last Released: 01/18/24 Qty/Days Supply: 90/90 Rx Expiration Date: 11/08/24 Refills Remainin Indication: FOR TYPE 2 DIABETES MELLITUS OUTPT ESCITALOPRAM OXALATE 20MG TAB (Status = Active) TAKE ONE TABLET BY MOUTH ONCE DAILY FOR MOOD Rx# [id number] Last Released: 01/30/24 Qty/Days Supply: Rx Expiration Date: 04/20/24 Refills Remainin Non-VA HYDROXYCHLOROQUINE SULFATE 200MG TAB TAKE ONE TABLET BY MOUTH TWICE DAILY prescribed thr [facility] OUTPT MELATONIN 3MG CAP/TAB (Status = Active) TAKE TWO CAPSULE/TABLET BY MOUTH AT BEDTIME NEEDED -FOR INSOMNIA Rx# [id number] Last Released: 01/30/24 Qty/Days Supply: 6030 Rx Expiration Date: 09/03/24 Refills Remainin OUTPT METFORMIN HCL 500MG 24HR SA TAB (Status = Active) TAKE TWO TABLETS BY MOUTH ONCE DAILY FOR TYPE 2 DIABETES MELLITUS Rx# [id number] Last Released: 10/12/23 Qty/Days Supply: 120/60 Rx Expiration Date: 07/06/24 Refills Remainin Indication: FOR TYPE 2 DIABETES MELLITUS OUTPT QUETIAPINE FUMARATE 25MG TAB (Status = Active) TAKE ONE TABLET BY MOUTH AT BEDTIME NEEDED FOR BIPOLAR DEPRESSION FOR ANXIETY. YOU MAY TAKE UP TO THREE ADDITIONAL TABLETS AT BEDTIME IF NEEDED. Rx# [id number] Last Released: 01/30/24 Qty/Days Supply: 120/30 Rx Expiration Date: 10/29/24 Refills Remainin Indication: FOR BIPOLAR DEPRESSION OUTPT TRAZODONE HCL 100MG TAB (Status = Active) TAKE TWO TABLETS BY MOUTH AT BEDTIME NEEDED FOR INSOMNIA ASSOCIATED WITH DEPRESSION Rx# [id number] Last Released: 01/30/24 Qty/Days Supply: 6030 Rx Expiration Date: 10/29/24 Refills Remainin Indication: FOR INSOMNIA ASSOCIATED WITH DEPRESSION OUTPT VALACYCLOVIR HCL 500MG TAB (Status = Active) TAKE ONE TABLET BY MOUTH ONCE DAILY FOR INFECTION CAUSED BY A VIRUS Rx# [id number] Last Released: 10/12/23 Qty/Days Supply: Rx Expiration Date: 04/02/24 Refills Remainin Indication: FOR INFECTION CAUSED BY A VIRUS SUPPLIES OUTPT ACCU-CHEK GUIDE (GLUCOSE) TEST STRIP (Status = Active) USE 1 STRIP TO TEST BLOOD SUGARS TWO TIMES A WEEK Rx# [id number] Last Released: 11/27/23 Qty/Days Supply: 50/180 Rx Expiration Date: 09/11/24 Refills Remainin Declines printed copy of medication list now Total time spent reviewing previous records, examining and counseling patient as well as entering orders 33 minutes /farhan/ Austen Staton OD CHIEF OF OPTOMETRY Signed: 02/10/2024 11:52 AUSTEN STATON [facility]
--- OUTSIDE RECORDS SUMMARY | 2024-03-10 09:29 | XMS_ITS | Encounter Summary ---
Author Name [place] Address [address] [place] [address] Care Team Providers Care Medical Claims Specialist Name Role Phone GARRETT GOOD Primary [...] Name Patient's Relationship to Policy [facility] [facility] CE ORGANIZ HMO Oct 06, 2018 O [id number] MEREDITH KU NN PATIENT ANTHEM BCBS CT FEDERAL PREFERRED PROVIDER ORGANIZAT ION (PPO) BASIC FAMIL Y Jan 31, 2015 [id number] MEREDITH KU NN PATIENT ANTHEM BCBS OF CT (BLUECARD) HIGH DEDUCTIBL E HEALTH PLAN CLINI [facility] & SUP HDHP Oct 06, 2018 [id number] MEREDITH KU NN PATIENT BCBS [place] HIGH DEDUCTIBL E HEALTH PLAN CLINI [facility] AND BLAKE HDHP Oct 06, 2018 [id number] [phone] MEREDITH KU NN PATIENT BCBS OF [place] HIGH DEDUCTIBL E HEALTH PLAN CLINI CHRISTINE SUPP HDHP Oct 06, 2018 [id number] ELMIRA,LY NN PATIENT BCBS OF [facility] CE ORGANIZ CLINI CHRISTINE AND SUPPO RT Oct 06, 2018 [id number] DEHNTAMEKALY NN PATIENT BCBS OF [facility] PREFERRED PROVIDER ORGANIZAT ION (PPO) BASIC FAMIL Y Jan 31, 2015 [id number] DENEREYDATAMEKALY NN PATIENT [place] FEPRX PLAN PRESCRIPT ION BCBS FEP Jan 31, 2015 [id number] MEREDITH KU NN PATIENT [place]-F EP BCBS PRESCRIPT ION BCBS FEP PLAN Jan 31, 2015 [id number] ELMIRALY NN PATIENT EXPRESS SCRIPTS PRESCRIPT ION HMO Oct 06, 2018 L4TA [id number] DELUISITOLY NN PATIENT EXPRESS SCRIPTS PRESCRIPT ION CLINI [facility] AND SUPPO RT Sep 19, 2018 L4TA [id number] DEHNTAMEKALY NN PATIENT EXPRESS SCRIPTS ([id number]) PRESCRIPT ION HDHP Oct 06, 2018 L4TA [id number] DEHNEH,LY NN PATIENT EXPRESS SCRIPTS ([id number]) PRESCRIPT ION L4TA Oct 06, 2018 L4TA [id number] DEHNEHLY NN PATIENT EXPRESS SCRIPTS ([id number]) PRESCRIPT ION L4TA HDHP Oct 06, 2018 L4TA [id number] DEHNTAMEKALY NN PATIENT EXPRESS SCRIPTS RX PRESCRIPT ION CLINI [facility] AND SUPPO RT Oct 06, 2018 L4TA [id number] DENEREYDAEH,LY NN PATIENT [id number] [facility] CE ORGANIZ CLINI CHRISTINE AND SUPPO RT Oct 06, 2018 [id number] MEREDITH KU NN PATIENT [id number] [facility] CE ORGANIZ CLINI CHRISTINE AND SUPPO RT Oct 06, 2018 [id number] DEHNEH,LY NN PATIENT G210 BCBS ([facility] AND SUPPO RT Oct 06, 2018 [id number] DEHNEH,LY NN PATIENT G210 BCBS (PROFESSIO NAL) [facility] CE ORGANIZ CLINI CHRISTINE AND SUPPO RT Oct 06, 2018 [id number] DEHNEH,LY NN PATIENT MEDICARE (WNR) MEDICARE () PART A Nov 19, 2006 PART A [id number] DEHNEH,LY NN PATIENT MEDICARE (WNR) MEDICARE () PART A Nov 19, 2006 PART A [id number] DEHNEH,LY NN PATIENT MEDICARE (WNR) MEDICARE () PART B Nov 19, 2006 PART B [id number] DEHNEH,LY NN PATIENT MEDICARE (WNR) MEDICARE () PART A Nov 19, 2006 PART A [id number] DEHNEH,LY NN PATIENT MEDICARE (WNR) MEDICARE () PART A Nov 19, 2006 PART A [id number] DEHNEH,LY NN PATIENT MEDICARE (WNR) MEDICARE () PART A Nov 19, 2006 PART A [id number] DEHNEH,LY NN PATIENT MEDICARE (WNR) MEDICARE () PART A Nov 19, 2006 PART A [id number] DEHNEH,LY NN PATIENT MEDICARE (WNR) MEDICARE () PART A Nov 19, 2006 PART A [id number] DEHNEH,LY NN PATIENT MEDICARE (WNR) MEDICARE () PART B Nov 19, 2006 PART B [id number] [phone] DEHNEH,LY NN PATIENT Selected Encounter This section includes the information on record at [place] for the Encounter. Date/Time Encounter Type Encounter Description Reason Pro vider Source Feb 22, 2024 01:00 PM Outpatient Encounter PRIMARY CARE/MEDICINE IHE Encounter Template Text not used by [facility] Plan of Treatment: Future Appointments (+ 6 months) and Future Tests (+/- 45 days) The Plan of Treatment section includes future care activities for the patient from all [place] [facility]. This section includes future appointments and future orders which are active, pending or scheduled. Future Appointments This section includes appointments that were scheduled to occur 6 months from the date of the Encounter, up to a maximum of 20 appointments. The data comes from all [facility]. Appointment Date/Time Appointment Type Appointme nt Facility Name Feb 25, 2024 01:00 PM AMBULATORY - [place]ICINE [place] [facility] [place] [facility] Feb 25, 2024 03:00 PM AMBULATORY - PSYCHIATRY [facility] Mar 10, 2024 09:15 AM AMBULATORY - MEDICINE [place] [facility] [place] [facility] Mar 13, 2024 03:00 PM AMBULATORY - MEDICINE [facility] [place] [facility] Apr 03, 2024 02:30 PM AMBULATORY - PSYCHIATRY [facility] Jul 28, 2024 01:00 PM AMBULATORY - MEDICINE [facility] Aug 20, 2024 12:30 PM [facility] Active, Pending, and Scheduled Orders This section includes a listing of several types of active, pending, and scheduled orders, including clinic medications orders, diagnostic test orders, procedure orders and consult orders; where the start date of the order is 45 days before the date of the Encounter or 45 days after the date of theEncounter. The data comes from all [facility]. Test Date/Time Test Type Test Details Facility Name Feb 22, 2024 12:00 AM Laboratory - Chemistry Order BASIC METABOLIC PANEL (fasting) BLOOD (SST-SERUM) [facility] Feb 22, 2024 12:00 AM Laboratory - Chemistry Order LIPID PANEL FASTING BLOOD (SST-SERUM) [facility] Feb 22, 2024 12:00 AM Laboratory - Chemistry Order LIVER FUNCTION BLOOD (SST-SERUM) [facility] Feb 22, 2024 12:00 AM Laboratory - Chemistry Order VITAMIN D (25-OH) BLOOD (SST-SERUM) [facility] Feb 22, 2024 12:00 AM Laboratory - Chemistry Order CBC BLOOD (LAV-BLOOD) [facility] Feb 22, 2024 12:00 AM Laboratory - Chemistry Order TSH BLOOD (SST-SERUM) [facility] Feb 22, 2024 12:00 AM Laboratory - Chemistry Order HEMOGLOBIN A1C PANEL BLOOD (LAV-BLOOD) [facility] Feb 22, 2024 12:00 AM Laboratory - Chemistry Order MICROALBUMIN CREATININE RATIO PANEL URINE (RANDOM) [facility] Feb 27, 2024 01:24 PM Consult Order COMMUNITY CARE-DENTAL GENERAL Cons Orchid Worker's Choice [place] [facility] [place] [facility] Vital Signs: All taken on the encounter date This section contains inpatient and outpatient Vital Signs collected on the date of the Encounter. Date/Time Temperature Pulse Blood Pressure Respiratory Rate SP02 Pain Height Weight Body Mass Index Source Feb 22, 2024 01:14 PM 97.9 82 115/76 19 98 67 234 37 [facility] IE Social History: Smoking Status (Most current) and [...] Rory nicholas Sep 11, 2023 03:00 PM [place]-TOBACCO NEVER USED [facility] Tobacco Use History This section includes a history of the smoking, or tobacco-related health factors, that were collected on or before the date of the Encounter. The data comes from the [place] facility where the Encounter took place. Date/Time Smoking Status/Tobacco Use Comment F acility Nov 22, 2020 11:00 AM [place]-TOBACCO NEVER USED [facility] Jan 31, 2018 09:33 AM [place]-TOBACCO NEVER USED [facility] May 10, 2017 01:08 PM LIFETIME NON-TOBACCO USER [facility] Mar 02, 2015 09:05 AM LIFETIME NON-TOBACCO USER [facility] July 10, 2001 02:49 PM LIFETIME NON-TOBACCO USER [facility]
--- OUTSIDE RECORDS SUMMARY | 2024-03-10 09:29 | XMS_ITS | Encounter Summary ---
Author Name [place] Address [address] [place] [address] Care Team Providers Care Transmission Supervisor Name Role Phone GARRETT GOOD Primary [...] Boykin's Name Patient's Relationship to Policy [facility] Oct 06, 2018 HMO [id number] [phone] MEREDITH KU NN PATIENT ANTHEM BCBS CT FEDERAL PREFERRED PROVIDER ORGANIZAT ION (PPO) BASIC FAMIL Y Jan 31, 2015 [id number] MEREDITH KU NN PATIENT ANTHEM BCBS OF CT (BLUECARD) HIGH DEDUCTIBL E HEALTH PLAN CLINI [facility]INE & SUP HDHP Oct 06, 2018 [id number] MEREDITH KU NN PATIENT BCBS [place] HIGH DEDUCTIBL E HEALTH PLAN CLINI [facility] AND [place]LA[place] HDHP Oct 06, 2018 [id number] [phone] MEREDITH KU NN PATIENT BC[place] HIGH DEDUCTIBL E HEALTH PLAN CLINI CHRISTINE SUPP HDHP Oct 06, [id number] DELUISITOLY NN PATIENT BCBS OF [place]/[employer] [facility] CE ORGANIZ CLINI CHRISTINE AND SUPPO RT Oct 06, [id number] DEMEREDITH JORGE NN PATIENT BCBS OF [facility] PREFERRED PROVIDER ORGANIZAT ION (PPO) BASIC FAMIL Y Jan 31, 2015 [id number] DEHNTAMEKALY NN PATIENT [place] FEPRX PLAN PRESCRIPT ION BCBS FEP Jan 31, 2015 [id number] ELMIRALY NN PATIENT [employer]-F EP BCBS PRESCRIPT ION BCBS FEP PLAN Jan 31, 2015 [id number] ELMIRALY NN PATIENT EXPRESS SCRIPTS PRESCRIPT ION HMO Oct 06, 2018 L4TA [id number] DELUISITOLY NN PATIENT EXPRESS SCRIPTS PRESCRIPT ION CLINI [facility] AND SUPPO RT Sep 19, 2018 L4TA [id number] DELUISITOLY NN PATIENT EXPRESS SCRIPTS ([id number]) PRESCRIPT ION HDHP Oct 06, 2018 L4TA [id number] DEHNEHLY NN PATIENT EXPRESS SCRIPTS ([id number]) PRESCRIPT ION L4TA Oct 06, 2018 L4TA [id number] DEHNEHLY NN PATIENT EXPRESS SCRIPTS ([id number]) PRESCRIPT ION L4TA HDHP Oct 06, 2018 L4TA [id number] DELUISITOLY NN PATIENT EXPRESS SCRIPTS RX PRESCRIPT ION CLINI [facility] AND SUPPO RT Oct 06, 2018 L4TA [id number] DEHNEH,LY NN PATIENT [id number] [facility] CE ORGANIZ CLINI CHRISTINE AND SUPPO RT Oct 06, [id number] DEHNTAMEKALY NN PATIENT [id number] [facility] CE ORGANIZ CLINI CHRISTINE AND SUPPO RT Oct 06, [id number] DEHNEH,LY NN PATIENT G210 BCBSM ([facility]) [facility] CE ORGANIZ CLINI CHRISTINE AND SUPPO RT Oct 06, 2018 [id number] DEHNEH,LY NN PATIENT G210 BCBS (PROFESSIO NAL) [facility] CE ORGANIZ CLINI CHRISTINE AND SUPPO RT Oct 06, [id number] DEHNEH,LY NN PATIENT MEDICARE (WNR) MEDICARE () PART A Nov 19, 2006 PART A [id number] DEHNEH,LY NN PATIENT MEDICARE (WNR) MEDICARE () PART A Nov 19, 2006 PART A [id number] DEHNEH,LY NN PATIENT MEDICARE (WNR) MEDICARE () PART A Nov 19, 2006 PART A [id number] DEHNEH,LY NN PATIENT MEDICARE (WNR) MEDICARE () PART A Nov 19, 2006 PART A [id number] DEHNEH,LY NN PATIENT MEDICARE (WNR) MEDICARE () PART B Nov 19, 2006 PART B [id number] DEHNEH,LY NN PATIENT MEDICARE (WNR) MEDICARE () PART A Nov 19, 2006 PART A [id number] DEHNEH,LY NN PATIENT MEDICARE (WNR) MEDICARE () PART A Nov 19, 2006 PART A [id number] DEHNEH,LY NN PATIENT MEDICARE (WNR) MEDICARE () PART A Nov 19, 2006 PART A [id number] DEHNEH,LY NN PATIENT MEDICARE (WNR) MEDICARE () PART B Nov 19, 2006 PART B [id number] DEHNEH,LY NN PATIENT Selected Encounter This section includes the information on record at [place] for the Encounter. Date/Time Encounter Type Encounter Description Reason Pro vider Source Feb 22, 2024 01:21 PM Outpatient Encounter PRIMARY CARE/MEDICINE IHE Encounter Template Text not used by [place] Plan of Treatment: Future Appointments (+ 6 months) and Future Tests (+/- 45 days) The Plan of Treatment section includes future care activities for the patient from all [place] [facility]. This section includes future appointments and future orders which are active, pending or scheduled. Future Appointments This section includes appointments that were scheduled to occur 6 months from the date of the Encounter, up to a maximum of 20 appointments. The data comes from all [facility]. Appointment Date/Time Appointment Type Appointme nt Facility Name Feb 25, 2024 01:00 PM AMBULATORY - MEDICINE [place] [facility] [place] [place] [facility] Feb 25, 2024 03:00 PM AMBULATORY - PSYCHIATRY [facility] Mar 10, 2024 09:15 AM AMBULATORY - MEDICINE [place] [facility] [place] [facility] Mar 13, 2024 03:00 PM AMBULATORY - MEDICINE [facility] [place] [facility] Apr 03, 2024 02:30 PM AMBULATORY - PSYCHIATRY [facility] Jul 28, 2024 01:00 PM AMBULATORY - MEDICINE [facility] Aug 20, 2024 12:30 PM AMBULATORY - MEDICINE [facility] Active, Pending, and Scheduled Orders This section includes a listing of several types of active, pending, and scheduled orders, including clinic medications orders, diagnostic test orders, procedure orders and consult orders; where the start date of the order is 45 days before the date of the Encounter or 45 days after the date of theEncounter. The data comes from all [facility]. Test Date/Time Test Type Test [...] Chemistry Order VITAMIN D (25-OH) BLOOD (SST-SERUM) [facility] Feb 22, 2024 12:00 AM [...] PM Consult Order COMMUNITY CARE-DENTAL GENERAL Cons Epoxy [facility] Social History: Smoking Status (Most current) and Tobacco Use (All prior to encounter date) This section includes the most current, and the historical, smoking and tobacco- related health factors from the [facility] where the Encounter took place. Current Smoking Status This section includes the most current smoking, or tobacco-related health factor, from the [place] facility where the Encounter took place. Date/Time Current Smoking Status Comment Facil ity Aug 11, 2022 02:50 PM [place]-TOBACCO NEVER USED [facility] Tobacco Use History This section includes a history of the smoking, or tobacco-related health factors, that were collected on or before the date of the Encounter. The data comes from the [place] facility where the Encounter took place. Date/Time Smoking Status/Tobacco Use Comment F acility Dec 05, 2019 01:53 PM [facility] May 26, 2016 02:32 PM LIFETIME [facility]CO [facility] Encounter Notes: All associated encounter notes This section contains the clinical notes associated to the Encounter. Date/Time Encounter Note(s) Provider Source Feb 22, 2024 01:21 PM PREVENTIVE MEDICIN E NURSING NOTE: LOCAL TITLE: CLINICAL REMINDERS/NURSING STANDARD TITLE: PREVENTIVE MEDICINE NURSING NOTE DATE OF NOTE: FEB 22, 2024@13:21 ENTRY DATE: FEB 22, 2024@13:21:26 AUTHOR: BERNARD HILL EXP COSIGNER: URGENCY: STATUS: COMPLETED Suicide Screen: C-SSRS Screening [place] Suicide Severity Rating Scale (C-SSRS) screener 1. Over the past month, have you [...] required due to responses to other questions. Cervical Cancer Screening: The patient has had a hysterectomy where the cervix was removed for benign reasons. Cervical cancer screening is not indicated. Date: 2023 ? Exact date is unknown Avg Risk Colorectal Cancer Screen: AVERAGE RISK colorectal cancer screening is due based on information available to this clinical reminder Patient declined screening/surveillance. Comment: vet had open rectal anal surgery on Sep 2023 Patient educated on the benefits of colorectal cancer screening/surveillance and the risk if screening/surveillance is not completed. Level of Understanding: Good Pneumococcal Conjugate Vaccine (PCV15/PCV20): Refuses PCV vaccine Immunization: PNEUMOCOCCAL CONJUGATE, UNSPECIFIED FORMULATION Refusal Reason: PATIENT DECISION Patient refuses all immunization(s) in the PneumoPCV group Date Documented: 02/22/24 13:25 Influenza Immunization: Deferral / Refusal The patient declines to receive the recommended dose of seasonal influenza vaccine. Immunization: INFLUENZA, UNSPECIFIED FORMULATION Refusal Reason: PATIENT DECISION Patient refuses all immunization(s) in the FLU group Date Documented: 02/22/24 13:25 /farhan/ KATELYN HILL LPN LPN Signed: 02/22/2024 13:25 KATELYN HILL BOONE
--- OUTSIDE RECORDS SUMMARY | 2024-03-10 09:29 | XMS_ITS | Encounter Summary ---
Author Name [facility] [place] Address [address] [place] [address] Care Team Providers Care Bank Vault Custodian Name Role Phone GARRETT GOOD Primary Care [...] Name Patient's Relationship to Policy Boykin [facility] CE ORGANIZ HMO Oct 06, 2018 O [id number] MEREDITH KU NN PATIENT ANTHEM BCBS CT FEDERAL PREFERRED PROVIDER ORGANIZAT ION (PPO) BASIC FAMIL Y Jan 31, 2015 [id number] MEREDITH KU NN PATIENT ANTHEM BCBS OF CT (BLUECARD) HIGH DEDUCTIBL E HEALTH PLAN CLINI [facility] SUP HDHP Oct 06, 2018 [id number] MEREDITH KU NN PATIENT BCBS [place] HIGH DEDUCTIBL E HEALTH PLAN CLINI [facility] AND [place]LAKE HDHP Oct 06, 2018 [id number] MEREDITH KU NN PATIENT BCBS OF [place] HIGH DEDUCTIBL E HEALTH PLAN CLINI CHRISTINE SUPP HDHP Oct 06, [id number] [phone] DELUISITOLY NN PATIENT BCBS OF [facility] CE ORGANIZ CLINI CHRISTINE AND SUPPO RT Oct 06, [id number] DELUISITOLY NN PATIENT BCBS OF [facility] PREFERRED PROVIDER ORGANIZAT ION (PPO) BASIC FAMIL Y Jan 31, 2015 [id number] DEHNTAMEKALY NN PATIENT [place] FEPRX PLAN PRESCRIPT ION BCBS FEP Jan 31, 2015 [id number] MEREDITH KU NN PATIENT [place]-F EP BCBS PRESCRIPT ION BCBS FEP PLAN Jan 31, 2015 [id number] ELMIRALY NN PATIENT EXPRESS SCRIPTS PRESCRIPT ION HMO Oct 06, 2018 L4TA [id number] ELMIRALY NN PATIENT EXPRESS SCRIPTS PRESCRIPT ION CLINI [facility] SUPPO RT Sep 19, 2018 L4TA [id number] DELUISITOLY NN PATIENT EXPRESS SCRIPTS ([id number]) PRESCRIPT ION HDHP Oct 06, 2018 L4TA [id number] DEHNEHLY NN PATIENT EXPRESS SCRIPTS ([id number]) PRESCRIPT ION L4TA Oct 06, 2018 L4TA [id number] DEHNEHLY NN PATIENT EXPRESS SCRIPTS ([id number]) PRESCRIPT ION L4TA HDHP Oct 06, 2018 L4TA [id number] DELUISITOLY NN PATIENT EXPRESS SCRIPTS RX PRESCRIPT ION CLINI [facility] SUPPO RT Oct 06, 2018 L4TA [id number] DEHNEH,LY NN PATIENT [id number] [facility] CE ORGANIZ CLINI CHRISTINE AND SUPPO RT Oct 06, [id number] DEHNTAMEKALY NN PATIENT [id number] [facility] CE ORGANIZ CLINI CHRISTINE AND SUPPO RT Oct 06, [id number] DEHNEH,LY NN PATIENT G210 BCBSM ([facility]GANIZ CL[facility] AND SUPPO RT Oct 06, [id number] DEHNEH,LY NN PATIENT G210 BCBS (PROFESSIO NAL) [facility] CE ORGANIZ CLINI CHRISTINE AND SUPPO RT Oct 06, [id number] DEHNEH,LY NN PATIENT MEDICARE (WNR) MEDICARE () PART A Nov 19, 2006 PART A [id number] DEHNEH,LY NN PATIENT MEDICARE (WNR) MEDICARE () PART A Nov 19, 2006 PART A [id number] DEHNEH,LY NN PATIENT MEDICARE (WNR) MEDICARE () PART A Nov 19, 2006 PART A [id number] DEHNEH,LY NN PATIENT MEDICARE (WNR) MEDICARE () PART B Nov 19, 2006 PART B [id number] DEHNEH,LY NN PATIENT MEDICARE (WNR) MEDICARE () PART A Nov 19, 2006 PART A [id number] DEHNEH,LY NN PATIENT MEDICARE (WNR) MEDICARE () PART A Nov 19, 2006 PART A [id number] DEHNEH,LY NN PATIENT MEDICARE (WNR) MEDICARE () PART A Nov 19, 2006 PART A [id number] DEHNEH,LY NN PATIENT MEDICARE (WNR) MEDICARE () PART A Nov 19, 2006 PART A [id number] DEHNEH,LY NN PATIENT MEDICARE (WNR) MEDICARE () PART B Nov 19, 2006 PART B [id number] DEHNEH,LY NN PATIENT Selected Encounter This section includes the information on record at [facility] for [facility]. Date/Time Encounter Type Encounter Description Reason Pro vider Source Feb 25, 2024 01:30 PM Outpatient Encounter OPTOMETRY IHE Encounter Template Text not used by [facility] Plan of Treatment: Future Appointments (+ 6 months) and Future Tests (+/- 45 days) The Plan of Treatment section includes future care activities for the patient from all [place] treatmentfacilities. This section includes future appointments and future orders which are active, pending or scheduled. Future Appointments This section includes appointments that were scheduled to occur 6 months from the date of the Encounter, up to a maximum of 20 appointments. The data comes from all [place] treatment [facility]. Appointment Date/Time Appointment Type Appointme nt Facility Name Mar 10, 2024 09:15 AM AMBULATORY - [place]ICINE [place] [facility] [facility] Mar 13, 2024 03:00 PM AM[place]UL[place]INE [place] [facility] [facility] [facility] Apr 03, 2024 02:30 PM AMBULATORY - PSYCHIATRY [facility] Jul 28, 2024 01:00 PM AMBULATORY - MEDICINE [facility] Aug 20, 2024 12:30 PM [facility] Active, Pending, and [...] of theEncounter. The data comes from all [facility]. Test Date/Time Test Type Test Details Facility Name Feb 22, 2024 12:00 AM Laboratory - Chemistry Order BASIC METABOLIC PANEL (fasting) BLOOD (SST-SERUM) [facility] Feb 22, 2024 12:00 AM Laboratory - Chemistry Order LIPID PANEL FASTING BLOOD (SST-SERUM) [facility] Feb 22, 2024 12:00 AM Laboratory - Chemistry Order LIVER FUNCTION BLOOD (SST-SERUM) [facility] Feb 22, 2024 12:00 AM Laboratory - Chemistry Order VITAMIN D (25-OH) BLOOD (SST-SERUM) [facility] Feb 22, 2024 12:00 AM Laboratory - Chemistry Order CBC BLOOD (LAV-BLOOD) [facility] Feb 22, 2024 12:00 AM Laboratory - Chemistry Order TSH BLOOD (SST-SERUM) [facility] Feb 22, 2024 12:00 AM Laboratory - Chemistry Order HEMOGLOBIN A1C PANEL BLOOD (LAV-BLOOD) [facility] Feb 22, 2024 12:00 AM Laboratory - Chemistry Order MICROALBUMIN CREATININE RATIO PANEL URINE (RANDOM) [facility] Feb 27, 2024 01:24 PM Consult Order COMMUNITY CARE-DENTAL GENERAL Cons [facility] Social History: Smoking Status (Most current) and Tobacco Use (All prior to encounter date) This section includes the most current, and the historical, smoking and tobacco- related health factors from the [place] facility where the Encounter took place. Current Smoking Status This section includes the most current smoking, or tobacco-related health factor, from the [place] facility where the Encounter took place. Date/Time Current Smoking Status Comment Facil ity Aug 11, 2022 02:50 PM VA-TOBACCO NEVER USED [facility] Tobacco Use History This section includes a history of the smoking, or tobacco-related health factors, that were collected on or before the date of the Encounter. The data comes from the [place] facility where the Encounter took place. Date/Time Smoking Status/Tobacco Use Comment F lisa Dec 05, 2019 01:53 PM VA-TOBACCO NEVER USED [facility] May 26, 2016 02:32 PM LIFETIME NON-TOBACCO USER [facility] Encounter Notes: All associated encounter notes This section contains the clinical notes associated to the Encounter. Date/Time Encounter Note(s) Provider Source Feb 25, 2024 01:30 PM CLERICAL NOTE: LOCAL TITLE: APPOINTMENT NO SHOW STANDARD TITLE: CLERICAL NOTE DATE OF NOTE: FEB 25, 2024@13:30 ENTRY DATE: FEB 25, 2024@13:30:19 AUTHOR: MARGOTH WIGGINS EXP COSIGNER: URGENCY: STATUS: COMPLETED Patient Name: INDY KU Patient SSN: [id number] Date and time of Appointment No show : 02/25/24 13:30 PATIENT PHONE - PHONE NUMBER [CELLULAR] - Patient's medical record was reviewed. Follow-up actions were determined and initiated: Please check/complete as applies: [X]Telephoned Directly [ ]Re-scheduled for next available appt [X]Sent a N0-show letter ( must call for appointment) [ ]Other (Emergent/Overbook, etc.): Additional Comments: Future Clinic Visits 02/25/2024 15:00 CWM/SO/VVC/MHC/BERMUDEZ 03/10/2024 09:15 COM CARE-GI GENERAL 03/13/2024 15:00 CWM/NO/PODIATRY A 08/20/2024 12:30 CWM/SO/PACT 7 02/17/2025 11:00 CWM/NO/OPTOMETRY/BRIONNA /farhan/ MARGOTH WIGGINS ADVANCED DIRECTOR COMMUNITY HEALTH NURSING Signed: 02/25/2024 13:30 MARGOTH WIGGINS CNTRL [facility]
--- OUTSIDE RECORDS SUMMARY | 2024-03-10 09:29 | XMS_ITS | Encounter Summary ---
Author Name [facility] [place] Address [address] [place] [address] Care Team Providers Care Billboard Poster Helper Name Role Phone GARRETT GOOD Primary [...] Name Patient's Relationship to Policy Boykin [facility] CE ORGANIZ HMO Oct 06, 2018 O [id number] MEREDITH KU NN PATIENT ANTHEM BCBS CT FEDERAL PREFERRED PROVIDER ORGANIZAT ION (PPO) BASIC FAMIL Y Jan 31, 2015 [id number] MEREDITH KU NN PATIENT ANTHEM BCBS OF CT (BLUECARD) HIGH DEDUCTIBL E HEALTH PLAN CLINI [facility] & SUP HDHP Oct 06, 2018 [id number] MEREDITH KU NN PATIENT BCBS [place] HIGH DEDUCTIBL E HEALTH PLAN CLINI [facility] [place] HDHP Oct 06, 2018 [id number] MEREDITH KU NN PATIENT [place] HIGH DEDUCTIBL E HEALTH PLAN CLINI CHRISTINE SUPP HDHP Oct 06, [id number] DELUISITOLY NN PATIENT BCBS OF [facility] CE ORGANIZ CLINI CHRISTINE AND SUPPO RT Oct 06, [id number] DELUISITOLY NN PATIENT BCBS OF [facility] PREFERRED PROVIDER ORGANIZAT ION (PPO) BASIC FAMIL Y Jan 31, 2015 [id number] DELUISITOLY NN PATIENT [place] FEPRX PLAN PRESCRIPT ION BCBS FEP Jan 31, 2015 [id number] ELMIRALY NN PATIENT [place]-F EP BCBS PRESCRIPT ION BCBS FEP PLAN Jan 31, 2015 [id number] ELMIRALY NN PATIENT EXPRESS SCRIPTS PRESCRIPT ION HMO Oct 06, 2018 L4TA [id number] DELUISITOLY NN PATIENT EXPRESS SCRIPTS PRESCRIPT ION CLINI [facility] SUPPO RT Sep 19, 2018 L4TA [id number] DELUISITOLY NN PATIENT EXPRESS SCRIPTS ([id number]) PRESCRIPT ION [facility] Oct 06, 2018 L4TA [id number] DEHNEHLY NN PATIENT EXPRESS SCRIPTS ([id number]) PRESCRIPT ION L4TA Oct 06, 2018 L4TA [id number] DEHNEHLY NN PATIENT EXPRESS SCRIPTS ([id number]) PRESCRIPT ION L4TA HD Oct 06, 2018 L4TA [id number] DEHNTAMEKALY NN PATIENT EXPRESS SCRIPTS RX PRESCRIPT ION CLINI [facility] SUPPO RT Oct 06, 2018 L4TA [id number] DEHNEH,LY NN PATIENT [id number] [facility] CE ORGANIZ CLINI CHRISTINE AND SUPPO RT Oct 06, [id number] DELUISITOLY NN PATIENT [id number] [facility] CE ORGANIZ CLINI CHRISTINE AND SUPPO RT Oct 06, [id number] DEHNEH,LY NN PATIENT G210 BCBS ([facility]) [facility] CE ORGANIZ CLINI CHRISTINE AND SUPPO RT Oct 06, 2018 [id number] DEHNEH,LY NN PATIENT G210 BCBS (PROFESSIO NAL) [facility] CL[facility]INE AND SUPPO RT Oct 06, [id number] DEHNEH,LY NN PATIENT MEDICARE (WNR) MEDICARE () PART A Nov 19, 2006 PART A [id number] DEHNEH,LY NN PATIENT MEDICARE (WNR) MEDICARE () PART A Nov 19, 2006 PART A [id number] DEHNEH,LY NN PATIENT MEDICARE (WNR) MEDICARE () PART B Nov 19, 2006 PART B [id number] DEHNEH,LY NN PATIENT MEDICARE (WNR) MEDICARE () PART A Nov 19, 2006 PART A [id number] DEHNEH,LY NN PATIENT MEDICARE (WNR) MEDICARE () PART A Nov 19, 2006 PART A [id number] DEHNEH,LY NN PATIENT MEDICARE (WNR) MEDICARE () PART A Nov 19, 2006 PART A [id number] DEHNEH,LY NN PATIENT MEDICARE (WNR) MEDICARE () PART A Nov 19, 2006 PART A [id number] DEHNEH,LY NN PATIENT MEDICARE (WNR) MEDICARE () PART A Nov 19, 2006 PART A [id number] DEHNEH,LY NN PATIENT MEDICARE (WNR) MEDICARE () PART B Nov 19, 2006 PART B [id number] DEHNEH,LY NN PATIENT Selected Encounter This section includes the information on [place] at [place] for the Encounter. Date/Time Encounter Type Encounter Description Reason Pro vider Source Feb 19, 2024 01:59 PM Outpatient Encounter DENTAL IHE Encounter Template Text not used by [facility] Plan of Treatment: Future Appointments (+ 6 months) and Future Tests (+/- 45 days) The Plan of Treatment section includes future care activities for the [facility] [place] [facility] This section includes future appointments and future orders which are active, pending or scheduled. Future Appointments This section includes appointments that were scheduled to occur 6 months from the date of the Encounter, up to a maximum of 20 appointments. The data comes from all [facility]. Appointment Date/Time Appointment Type Appointme nt Facility Name Feb 22, 2024 01:00 PM AMBULATORY - MEDICINE [facility] Feb 25, 2024 01:00 PM AM[place]UL[place]ORY - [place]ICINE [place] [facility] Feb 25, 2024 03:00 PM AMBULATORY - PSYCHIATRY [facility] Mar 10, 2024 09:15 AM AMBULATORY - [place]ICINE [place] [facility] Mar 13, 2024 03:00 PM AMBULATORY - MEDICINE [facility] [place] [facility] Apr 03, 2024 02:30 PM AMBULATORY - PSYCHIATRY [facility] Jul 28, 2024 01:00 PM AMBULATORY - MEDICINE [facility] Active, [...] of theEncounter. The data comes from all [facility]. Test Date/Time Test Type Test Details Facility Name Feb 22, 2024 12:00 AM Laboratory - Chemistry Order BASIC METABOLIC PANEL (fasting) BLOOD (SST-SERUM) [facility] Feb 22, 2024 12:00 AM Laboratory - Chemistry Order LIPID PANEL FASTING BLOOD (SST-SERUM) [facility] Feb 22, 2024 12:00 AM Laboratory - Chemistry Order LIVER FUNCTION BLOOD (SST-SERUM) [facility] Feb 22, 2024 12:00 AM Laboratory - Chemistry Order CBC BLOOD (LAV-BLOOD) [facility] Feb 22, 2024 12:00 AM Laboratory - Chemistry Order HEMOGLOBIN A1C PANEL BLOOD (LAV-BLOOD) [facility] Feb 22, 2024 12:00 AM Laboratory - Chemistry Order VITAMIN D (25-OH) BLOOD (SST-SERUM) [facility] Feb 22, 2024 12:00 AM Laboratory - Chemistry Order TSH BLOOD (SST-SERUM) [facility] Feb 22, 2024 12:00 AM Laboratory - Chemistry Order MICROALBUMIN CREATININE RATIO PANEL URINE (RANDOM) [facility] Feb 27, 2024 01:24 PM Consult Order COMMUNITY CARE-DENTAL GENERAL Cons Entrepreneurship Program Director's Choice [facility] [place] [facility] Social History: Smoking Status (Most current) and [...] 02:50 PM [facility] Tobacco Use History This section includes a history of the smoking, or tobacco-related health factors, that were collected on or before the date of the Encounter. The data comes from the [place] facility where the Encounter took place. Date/Time Smoking Status/Tobacco Use Comment F acility Dec 05, 2019 01:53 PM VA-TOBACCO NEVER USED [facility] [place] [facility] May 26, 2016 02:32 PM LIFETIME NON-TOBACCO [facility]ER [facility] Encounter Notes: All associated encounter notes This section contains the clinical notes associated to the Encounter. Date/Time Encounter Note(s) Provider Source Feb 19, 2024 01:59 PM DENTISTRY TELEPHON E ENCOUNTER NOTE: LOCAL TITLE: TELEPHONE NOTE/DENTAL STANDARD TITLE: DENTISTRY TELEPHONE ENCOUNTER NOTE DATE OF NOTE: FEB 19, 2024@13:59 ENTRY DATE: FEB 19, 2024@13:59:12 AUTHOR: KEYLA CORNELL EXP COSIGNER: URGENCY: STATUS: COMPLETED Patients appointment with dental on 02/29/2024 has been cancelled, pt asked to be referred out to the community for dental services. I sent a message to the dental code processing team. rtc pid 02/29/2024 has been dispositioned. /farhan/ KEYLA CORNELL ADVANCED INDUCTION MACHINE SETTER Signed: 02/19/2024 14:00 [facility] CORNELL [facility]
--- OUTSIDE RECORDS SUMMARY | 2024-03-10 09:29 | XMS_ITS | Encounter Summary ---
Author Name [facility] [place] [facility] [place] [facility] [place] Address [address] [place] [address] Care Team Providers Care Academic Affairs Coordinator Name Role Phone GARRETT GOOD Primary [...] CE ORGANIZ HMO Oct 06, 2018 O [id number] MEREDITH KU NN PATIENT ANTHEM BCBS CT FEDERAL PREFERRED PROVIDER ORGANIZAT ION (PPO) BASIC FAMIL Y Jan 31, 2015 [id number] MEREDITH KU NN PATIENT ANTHEM BCBS OF CT (BLUECARD) HIGH DEDUCTIBL E HEALTH PLAN CLINI [facility] & SUP HDHP Oct 06, 2018 [id number] MEREDITH KU NN PATIENT BCBS MA HIGH DEDUCTIBL E HEALTH PLAN CLINI [facility] AND [place] HDHP Oct 06, 2018 [id number] MEREDITH KU NN PATIENT BCBS OF [place] HIGH DEDUCTIBL E HEALTH PLAN CLINI [facility]INE SUPP HDHP Oct 06, 2018 [id number] ATTILATAMEKALY NN PATIENT BCBS OF [facility] CE ORGANIZ CLINI [facility] AND SUPPO RT Oct 06, [id number] DEHNTAMEKALY NN PATIENT BCBS OF [facility] PREFERRED PROVIDER ORGANIZAT ION (PPO) BASIC FAMIL Y Jan 31, 2015 [id number] DELUISITOLY NN PATIENT [place] FEPRX PLAN PRESCRIPT ION BCBS FEP Jan 31, 2015 [id number] ELMIRALY NN PATIENT [place]-F EP BCBS PRESCRIPT ION BCBS FEP PLAN Jan 31, 2015 [id number] ELMIRALY NN PATIENT EXPRESS SCRIPTS PRESCRIPT ION HMO Oct 06, 2018 L4TA [id number] DENEREYDATAMEKALY NN PATIENT EXPRESS SCRIPTS PRESCRIPT ION CLINI [facility] SUPPO RT Sep 19, 2018 L4TA [id number] DELUISITOLY NN PATIENT EXPRESS SCRIPTS ([id number]) PRESCRIPT ION HDHP Oct 06, 2018 L4TA [id number] DEHNTAMEKALY NN PATIENT EXPRESS SCRIPTS ([id number]) PRESCRIPT ION L4TA Oct 06, 2018 L4TA [id number] DEHNEHLY NN PATIENT EXPRESS SCRIPTS ([id number]) PRESCRIPT ION L4TA HDHP Oct 06, 2018 L4TA [id number] DELUISITOLY NN PATIENT EXPRESS SCRIPTS RX PRESCRIPT ION CLINI [facility] AND SUPPO RT Oct 06, 2018 L4TA [id number] DELUISITO,LY NN PATIENT [id number] [facility]LY [facility], [facility] CE ORGANIZ CLINI [facility]INE AND SUPPO RT Oct 06, [id number] ELMIRALY NN PATIENT [id number] [facility]IN[facility] AND SUPPO RT Oct 06, [id number] DEHNEH,LY NN PATIENT G210 BCBSM [facility] SUPPO RT Oct 06, [id number] DEHNEH,LY NN PATIENT G210 BCBS ([facility] SUPPO RT Oct 06, [id number] DEHNEH,LY NN PATIENT MEDICARE (WNR) MEDICARE ) PART A Nov 19, 2006 PART A [id number] DEHNEH,LY NN PATIENT MEDICARE (WNR) MEDICARE ) PART A Nov 19, 2006 PART A [id number] DEHNEH,LY NN PATIENT MEDICARE (WNR) MEDICARE ) PART A Nov 19, 2006 PART A [id number] DEHNEH,LY NN PATIENT MEDICARE (WN) MEDICARE ) PART B Nov 19, 2006 PART B [id number] DEHNEH,LY NN PATIENT MEDICARE (WNR) MEDICARE () PART A Nov 19, 2006 PART A [id number] DEHNEH,LY NN PATIENT MEDICARE (WNR) MEDICARE () PART A Nov 19, 2006 PART A [id number] DEHNEH,LY NN PATIENT MEDICARE (WNR) MEDICARE ) PART A Nov 19, 2006 PART A [id number] DEHNEH,LY NN PATIENT MEDICARE (WNR) MEDICARE ) PART A Nov 19, 2006 PART A [id number] DEHNEH,LY NN PATIENT MEDICARE (WNR) MEDICARE () PART B Nov 19, 2006 PART B [id number] [phone] DEHNEH,LY NN PATIENT Selected Encounter This section includes the information on record at [place] for the Encounter. Date/Time Encounter Type Encounter Description Reason Provider Source Feb 25, 2024 03:00 PM OFFICE O/P EST MOD 30 MIN [facility] - IND ICD-10-CM F33.40 Major depressive disorder, recurrent, in remission, unsp ADIA BERMUDEZ IHE Encounter Template Text not used by [place] Assessments - Encounter Diagnoses This section includes the primary and secondary diagnoses documented for the Encounter. Date/Time Primary/Secondary Diagnosis Diagnosis Name Provider Source Feb 25, 2024 03:45 PM PRIMARY Major depressive disorder, recurrent, in remission, unsMINDA Heredia CARLOS Feb 25, 2024 03:45 PM SECONDARY Post-traumatic stress disorder, chronic MINDA BERMUDEZ Plan of Treatment: Future Appointments (+ 6 months) and Future Tests (+/- 45 days) The Plan of Treatment section includes future care activities for the patient [facility] [place] [facility] This section includes future appointments and future orders which are active, pending or scheduled. Future Appointments This section includes appointments that were scheduled to occur 6 months from the date of the Encounter, up to a maximum of 20 appointments. The data comes from all [facility]. Appointment Date/Time Appointment Type Appointme nt Facility Name Mar 10, 2024 09:15 AM AMBULATORY - MEDICINE [facility] Mar 13, 2024 03:00 PM AMBULATORY - MEDICINE [facility] Apr 03, 2024 02:30 PM AMBULATORY - PSYCHIATRY [facility] Jul 28, 2024 01:00 PM AMBULATORY - MEDICINE [facility] Nav [facility] Aug 20, 2024 12:30 PM AMBULATORY - MEDICINE [facility] Active, Pending, and Scheduled Orders This section includes a listing of several types of active, pending, and scheduled orders, including clinic medications orders, diagnostic test orders, procedure orders and consult orders; where the start date of the order is 45 days before the date of the Encounter or 45 days after the date of theEncounter. The data comes from all [facility]. Test Date/Time Test Type Test Details Facility Name Feb 22, 2024 12:00 AM Laboratory - Chemistry Order BASIC METABOLIC PANEL (fasting) BLOOD (SST-SERUM) [facility] Feb 22, 2024 12:00 AM Laboratory - Chemistry Order LIPID PANEL FASTING BLOOD (SST-SERUM) [facility] Feb 22, 2024 12:00 AM Laboratory - Chemistry Order LIVER FUNCTION BLOOD (SST-SERUM) [facility] Feb 22, 2024 12:00 AM Laboratory - Chemistry Order VITAMIN D (25-OH) BLOOD (SST-SERUM) [facility] Feb 22, 2024 12:00 AM Laboratory - Chemistry Order CBC BLOOD (LAV-BLOOD) [facility] Feb 22, 2024 12:00 AM Laboratory - Chemistry Order TSH BLOOD (SST-SERUM) [facility] Feb 22, 2024 12:00 AM Laboratory - Chemistry Order HEMOGLOBIN A1C PANEL BLOOD (LAV-BLOOD) [facility] Feb 22, 2024 12:00 AM Laboratory - Chemistry Order MICROALBUMIN CREATININE RATIO PANEL URINE (RANDOM) [facility] Feb 27, 2024 01:24 PM Consult Order COMMUNITY CARE-DENTAL GENERAL Cons Core Manager's Choice [place] [facility] Social History: Smoking Status (Most current) and [...] Date/Time Current Smoking Status Comment Rory itmodesta Sep 11, 2023 03:00 PM [place]-TOBACCO NEVER USED [place]ONOR Tobacco Use History This section includes a history of the smoking, or tobacco-related health factors, that were collected on or before the date of the Encounter. The data comes from the [place] facility where the Encounter took place. Date/Time Smoking Status/Tobacco Use Comment F acility Nov 22, 2020 11:00 AM [place]-TOBACCO NEVER USED [place]ON[place] Jan 31, 2018 09:33 AM [place]-TOBACCO NEVER USED [place]ON[place] May 10, 2017 01:08 PM LIFETIME NON-TOBACCO USER HONOR Mar 02, 2015 09:05 AM LIFETIME NON-TOBACCO USER [facility]ONOR July 10, 2001 02:49 PM LIFETIME NON-TOBACCO USER HONOR Encounter Notes: All associated encounter notes This section contains the clinical notes associated to the Encounter. Date/Time Encounter Note(s) Provider Source Feb 26, 2024 09:00 AM MENTAL HEALTH [place] TMENT PLAN NOTE: LOCAL TITLE: MH TREATMENT PLAN STANDARD TITLE: MENTAL HEALTH TREATMENT PLAN NOTE DATE OF NOTE: FEB 26, 2024@09:00:46 ENTRY DATE: FEB 26, 2024@09:00:59 AUTHOR: MINDA BERMUDEZ EXP COSIGNER: URGENCY: STATUS: COMPLETED MH TREATMENT PLAN - Feb, @ 09:00AM Visit Date: Feb, @ 15:00 - CWM/SO/VVC/BRYN/AIDAN BUS PERSON: NALINI WASSERMAN / CARLOS Gonzalez TREATMENT PLAN: Problem: PTSD/depression/dissociative disorder Status: ACTIVE Goal: improved ptsd/depression/dissociative symptoms Status: ACTIVE Objective: improved ptsd/depression/dissociative symptoms, as measured by pt report Status: ACTIVE Intervention: psychopharm and psychotherapy with community therapist Status: ACTIVE [place] [facility] [place] Frame: PRN Providers: MINDA BERMUDEZ: PSYCHIATRIST Problem: Binge eating disorder Status: ACTIVE Goal: decreased overeating Status: ACTIVE Objective: decreased overeating as measured by pt report and wt Status: ACTIVE Intervention: psychopharm -- see progress notes -- and pt has therapist in community Status: ACTIVE Discipline: [facility] Time Frame: PRN Providers: MINDA BERMUDEZ: PSYCHIATRIST [place] [facility] [place] Entered Treatment: 11/18/2019 @ 02:28PM Review Date: 11/22/2021 Anticipated Discharge: None INTERDISCIPLINARY TEAM: MINDA BERMUDEZ: PSYCHIATRIST COMMUNICATION: Relevant treatment options, including evidence-based interventions, were considered and discussed with the . YES A copy of the treatment plan was given to the . NO Risks, benefits, and potential complications were discussed with the . YES /farhan/ MINDA BERMUDEZ MD STAFF PSYCHIATRIST Signed: 02/26/2024 09:00 MINDA BERMUDEZ Feb 25, 2024 03:01 PM TELEHEALTH NOTE: LOCAL TITLE: [place] VIDEO CONNECT PSYCHIATRIST NOTE STANDARD TITLE: TELEHEALTH NOTE DATE OF NOTE: FEB 25, 2024@15:01 ENTRY DATE: FEB 25, 2024@15:02:01 AUTHOR: MINDA BERMUDEZ EXP COSIGNER: URGENCY: STATUS: COMPLETED [place] VIDEO CONNECT PSYCHIATRIST NOTE Has ADDENDA [facility] ([facility]) Standard Documentation [facility] Clinician Resources Only: E911 (Emergency Call Relay Center): [phone] [facility] Crisis Line - 288 then press #1. [facility] Suicide Coordinator [phone], Ext. [phone]; Back-up Ext. [phone] [facility] [place] [phone] Introduction: Visit is being conducted by [place] [employer] Connect. Montgomery identified with 2 identifiers: [X] Full Name [X] Date of [ ] VA ID Card Emergency Plan: confirmed and/or provided the following information in case of emergency or technology failure. PATIENT PHONE - PHONE NUMBER [CELLULAR] - Is patient phone number correct, if not, enter below: 's phone number: INDY K[facility] [address] [place] [address], [phone] Montgomery's present location and address for appointment: home Montgomery's emergency contact name and phone number: chart Montgomery reported that location is private and safe: Yes Informed Consent: Montgomery informed of the risks and benefits of Telehealth video care. Montgomery has the right to refuse video services. If refuses video visit, a [id number] visit will be scheduled. Montgomery verbalized consent for this video visit: Yes provided consent for any other persons present for visit: N/A If yes, who and relationship to patient: Secure visit: Visit was locked for security and privacy:Yes 30 min for encounter, including chart review, interview, charting, session chart reviewed Patient relatively stable, but had difficult medical course, followed by primary care and outside [facility], now improved. Despite this, mood recently stable; and depression, anxiety, PTSD symptoms in reasonable control. Affect brightens appropriately. She denies suicidal and violent ideation. Again, h/o using DBT skills to improve safety and sx's. No psychotic symptoms. Well organized thoughts. No paranoid or delusional content presented. No dissociative sx's presented today, but has h/o dissociative sx's.. Speech is normal. Cognitive exam grossly intact. Future oriented. Has interests. Slowing noted. Patient focused on improving her health. Another review of psychiatric medication, patient would like to keep them the same, for now; although she is trying to gradually decrease Seroquel, see below. Well-tolerated. Benefits outweigh risks. She denies psych medication side effects. No daytime sedation. Reports psych medication compliance She previously denied alcohol and drug abuse; previously reported occasional drink wt 234 lbs 02/2024 Active problems - Computerized Problem List is the source for the followin. Chronic kidney disease stage 3 2. Knee DJD (degenerative joint disease) 3. Dissociative disorder 4. Diabetes Mellitus Type 2 ([facility] [id number]) 5. Hyperlipidemia ([facility] 45201561) 6. Anemia ([facility] 126618984) 7. History of DVT (deep vein thrombosis) 8. Recurrent genital herpes simplex 9. Connective tissue disease 10. Binge eating disorder 11. History of surgery 12. Screening Mammogram for Malignant Neoplasms of the Breast, other 13. Recurrent major depression (SNOMED CT 02484310) 14. Attention-Deficit/Hyperactivity Disorder NOS 15. Obesity (SNOMED CT 175900027) 16. Chronic post-traumatic stress disorder (SNOMED CT 034191575) 17. Temporomandibular Joint Syndrome 18. Hypertension (SNOMED CT 38977010) Active Outpatient Medications (including Supplies): Active Outpatient Medications Status 1) ACCU-CHEK GUIDE (GLUCOSE) TEST STRIP USE 1 STRIP TO TEST ACTIVE BLOOD SUGARS TWO TIMES A WEEK 2) CHOLECALCIF 25MCG (D3-1,000UNIT) TAB TAKE ONE TABLET BY ACTIVE MOUTH ONCE DAILY FOR VITAMIN SUPPLEMENTATION Indication: FOR VITAMIN D DEFICIENCY 3) DICLOFENAC NA 1% TOP GEL APPLY 2 GRAMS TOPICALLY FOUR TIMES ACTIVE DAILY NEEDED FOR OSTEOARTHRITIS - USE DOSING CARD PROVIDED IN BOX 4) EMPAGLIFLOZIN 10MG TAB TAKE ONE TABLET BY MOUTH ONCE DAILY ACTIVE (S) Indication: FOR TYPE 2 DIABETES MELLITUS 5) ESCITALOPRAM OXALATE 20MG TAB TAKE ONE TABLET BY MOUTH ONCE ACTIVE DAILY FOR MOOD 6) MELATONIN 3MG CAP/TAB TAKE TWO CAPSULE/TABLET BY MOUTH AT ACTIVE (S) BEDTIME NEEDED -FOR INSOMNIA 7) METFORMIN HCL [...] TWO TABLETS BY MOUTH AT BEDTIME ACTIVE (S) NEEDED Indication: FOR INSOMNIA ASSOCIATED WITH DEPRESSION 10) VALACYCLOVIR HCL 500MG TAB TAKE ONE TABLET BY MOUTH ONCE ACTIVE DAILY Indication: FOR INFECTION CAUSED BY A VIRUS Active Non-VA Medications Status 1) Non-VA DOCUSATE NA 100MG CAP 100MG BY MOUTH TWICE DAILY ACTIVE Indication: FOR CONSTIPATION 2) Non-VA PSYLLIUM POWDER,ORAL BY MOUTH ACTIVE Indication: FOR CONSTIPATION 12 Total Medications Psychiatric Medicaton hx: also note that pt [...] tissue disease/fibromyalgia -- followed by rheumatology at [facility] -- dx w RA, possible TREATMENT [...] to do this. Continue w psychotherapist at [facility] ctr therapist Dr Nguyen Chris -- pt finds very helpful CONTINUE QUETIAPINE DOSED 25 MG NIGHTLY MAY TAKE UP TO 75 MG ADDITIONAL DOSE IF NEEDED NIGHTLY (NOT TO EXCEED 100 MG AT BEDTIME). Quetiapine is to augment antidepressant, to decrease the tendency to become overwhelmed by intense affect, and to improve sleep. Patient verbalizes good understanding of side effect profile as discussed in previous notes. See my prior notes for discussion of risks and benefits of quetiapine for patient. Benefits outweigh risks. The patient will try to decrease quetiapine when possible. She will have the option of taking quetiapine as little as 25 mg at bedtime [...] together helpful for sleep and well tolerated Patient trying to improve sleep hygiene, she understands these concepts well. As noted previously, note that the patient [...] with psychiatric medication. The patient discussed/verbalized back good understanding of the medication, side effects, and the plan/instructions, and the patient asked good questions. The benefits of psychiatric medications outweigh risks [...] antipsychotic agent was reviewed with the patient. This included discussion with patient that TD is potentially irreversible. The pt verbalized reasonable understanding of the side effect profile of the atypical antipsychotic medication. The patient agrees to the medication. The benefits of treatment outweigh risks for this patient. The patient's primary care physician follows blood pressure, weights, lipids, glucose; see last hemoglobin A1c and lipid profile in chart through primary care rtc in about 1-2 mo for psych med follow up; I advised patient to return to clinic in open access sooner by calling if needed Encourage alpha stim for anxiety ; but sometimes meditation more effective for pt Medication Reconciliation: Outpatient: Has the patient been taking medications as documented in the EMLR? YES: The patient has been taking medications as documented in the EMLR. Essential Medication List for Review used to complete this medication reconciliation. INCLUDED IN THIS LIST: Alphabetical list of active outpatient prescriptions dispensed from this [facility] (local) and dispensed from another [place] or [facility] facility (remote) as well as [...] with a VA or non-VA provider. MH AIMS Testing: AIMS (Mental Health Instrument) The patient was evaluated for symptoms of tardive dyskinesia using the AIMS. Total score for items 1-7: 0 /es/ MINDA BERMUDEZ MD STAFF PSYCHIATRIST Signed: 02/25/2024 15:45 Receipt Acknowledged By: 02/27/2024 07:37 /es/ Melissa Dominguez ADVANCED DEAF INTERPRETER 02/25/2024 ADDENDUM STATUS: COMPLETED Suicide Screen: C-SSRS Screening [place]-Suicide Severity Rating Scale (C-SSRS Screener) 1. Over [...] went to the roof but didn't jump)? Yes-- see 10/17/16 risk assessment -- OD many yrs ago 8. If YES, was this within the past 3 months? No /farhan/ MINDA BERMUDEZ MD STAFF PSYCHIATRIST Signed: 02/25/2024 16:02 MINDA BERMUDEZ
--- OUTSIDE RECORDS SUMMARY | 2024-03-10 09:29 | XMS_ITS | Encounter Summary ---
Author Name [facility] [place] [facility] [facility] [place] Address [address] [place] [address] Care Team Providers Care Seo Consultant Name [...] Boykin's Name Patient's Relationship to Policy Boykin Hang w/[facility] CE ORGANIZ HMO Oct 06, 2018 HMO [id number] [phone] MEREDITH KU NN PATIENT ANTHEM BCBS CT FEDERAL PREFERRED PROVIDER ORGANIZAT ION (PPO) BASIC FAMIL Y Jan 31, 2015 [id number] [phone] MEREDITH KU NN PATIENT ANTHEM BCBS OF CT (BLUECARD) HIGH DEDUCTIBL E HEALTH PLAN [facility]INI [facility] SUP HDHP Oct 06, 2018 [id number] [phone] MEREDITH KU NN PATIENT BCBS [place] HIGH DEDUCTIBL E [facility] PLAN [facility]LA[facility] HDHP Oct 06, 2018 [id number] [phone] MEREDITH KU NN PATIENT BCBS OF [place] HIGH DEDUCTIBL E HEALTH PLAN CLINI [facility] SUPP HDHP Oct 06, [id number] [phone] DELUISITOLY NN PATIENT BCBS OF [place]/[employer] [facility] CE ORGANIZ CLINI [facility] AND SUPPO RT Oct 06, [id number] [phone] DEMEREDITH JORGE NN PATIENT BCBS OF [facility] PREFERRED PROVIDER ORGANIZAT ION (PPO) BASIC FAMIL Y Jan 31, 2015 [id number] DEHNTAMEKALY NN PATIENT [place] FEPRX PLAN PRESCRIPT ION BCBS FEP Jan 31, 2015 [id number] ELMIRALY NN PATIENT [place]-F EP BCBS PRESCRIPT ION BCBS FEP PLAN Jan 31, 2015 [id number] ELMIRALY NN PATIENT EXPRESS SCRIPTS PRESCRIPT ION HMO Oct 06, 2018 L4TA [id number] DELUISITOLY NN PATIENT EXPRESS SCRIPTS PRESCRIPT ION CL[facility]PP[facility] RT Sep 19, 2018 L4TA [id number] [phone] DELUISITOLY NN PATIENT EXPRESS SCRIPTS ([id number]) PRESCRIPT ION HDHP Oct 06, 2018 L4TA [id number] DEHNEHLY NN PATIENT EXPRESS SCRIPTS ([id number]) PRESCRIPT ION L4TA Oct 06, 2018 L4TA [id number] DEHNEHLY NN PATIENT EXPRESS SCRIPTS ([id number]) PRESCRIPT ION L4TA HDHP Oct 06, 2018 L4TA [id number] DELUISITOLY NN PATIENT EXPRESS SCRIPTS RX PRESCRIPT ION CLINI [facility] SUPPO RT Oct 06, 2018 L4TA [id number] [phone] DEHNEH,LY NN PATIENT [id number] [facility] CE ORGANIZ CLINI [facility] AND SUPPO RT Oct 06, [id number] DEHNTAMEKALY NN PATIENT [id number] [facility] CE ORGANIZ CLINI [facility] AND SUPPO RT Oct 06, [id number] [phone] DEHNEH,LY NN PATIENT G210 BCBSM ([facility]) [facility] CE ORGANIZ CLINI [facility] AND SUPPO RT Oct 06, 2018 [id number] [phone] DEHNEH,LY NN PATIENT G210 BCBS ([facility]ESSIO NAL) [facility] CE ORGANIZ CLINI [facility] SUPPO RT Oct 06, [id number] DEHNEH,LY NN PATIENT MEDICARE (WNR) MEDICARE () PART A Nov 19, 2006 PART A [id number] DEHNEH,LY NN PATIENT MEDICARE (WNR) MEDICARE () PART A Nov 19, 2006 PART A [id number] DEHNEH,LY NN PATIENT MEDICARE (WNR) MEDICARE () PART A Nov 19, 2006 PART A [id number] DEHNEH,LY NN PATIENT MEDICARE (WNR) MEDICARE () PART A Nov 19, 2006 PART A [id number] DEHNEH,LY NN PATIENT MEDICARE (WNR) MEDICARE () PART B Nov 19, 2006 PART B [id number] DEHNEH,LY NN PATIENT MEDICARE (WNR) MEDICARE () PART A Nov 19, 2006 PART A [id number] DEHNEH,LY NN PATIENT MEDICARE (WNR) MEDICARE () PART A Nov 19, 2006 PART A [id number] DEHNEH,LY NN PATIENT MEDICARE (WNR) MEDICARE () PART A Nov 19, 2006 PART A [id number] DEHNEH,LY NN PATIENT MEDICARE (WNR) MEDICARE () PART B Nov 19, 2006 PART B [id number] DEHNEH,LY NN PATIENT Selected Encounter This section includes the information on record at [facility] for the Encounter. Date/Time Encounter Type Encounter Description Reason Pro vider Source Feb 22, 2024 12:00 AM Outpatient Encounter EVENT (HISTORICAL) IHE Encounter Template Text not used by [facility] Plan of Treatment: Future Appointments (+ 6 months) and Future Tests (+/- 45 days) The Plan of Treatment section includes [facility] care [facility] This section includes future appointments and future orders which are active, pending or scheduled. Future Appointments This section includes appointments that were scheduled to occur 6 months from the date of the Encounter, up to a maximum of 20 appointments. The data comes from all [facility]. Appointment Date/Time Appointment Type Appointme nt Facility Name Feb 25, 2024 01:00 PM AMBULATORY - MEDICINE [place] [facility] [place] [facility] Feb 25, 2024 03:00 PM AMBULATORY - PSYCHIATRY [facility] Mar 10, 2024 09:15 AM AMBULATORY - MEDICINE [place] [facility] [place] [facility] Mar 13, 2024 03:00 PM AMBULATORY - MEDICINE [facility] [place] [facility] Apr 03, 2024 02:30 PM AMBULATORY - PSYCHIATRY [facility] Jul 28, 2024 01:00 PM AMBULATORY - MEDICINE [facility] Aug 20, 2024 12:30 PM AMBULATORY - MEDICINE [facility] Active, Pending, and Scheduled Orders This section includes a listing of several types of active, pending, and scheduled orders, including clinic medications orders, diagnostic test orders, procedure orders and consult orders; where the start date of the order is 45 days before the date of the Encounter or 45 days after the date of theEncounter. The data comes from all [facility]. Test Date/Time Test Type Test Details Facility Name Feb 22, 2024 12:00 AM Laboratory - Chemistry Order BASIC METABOLIC PANEL (fasting) BLOOD (SST-SERUM) [facility] Feb 22, 2024 12:00 AM Laboratory - Chemistry Order LIPID PANEL FASTING BLOOD (SST-SERUM) [facility] Feb 22, 2024 12:00 AM Laboratory - Chemistry Order LIVER FUNCTION BLOOD (SST-SERUM) [facility] Feb 22, 2024 12:00 AM Laboratory - Chemistry Order VITAMIN D (25-OH) BLOOD (SST-SERUM) [facility] Feb 22, 2024 12:00 AM Laboratory - Chemistry Order CBC BLOOD (LAV-BLOOD) [facility] Feb 22, 2024 12:00 AM Laboratory - Chemistry Order TSH BLOOD (SST-SERUM) [facility] Feb 22, 2024 12:00 AM Laboratory - Chemistry Order HEMOGLOBIN A1C PANEL BLOOD (LAV-BLOOD) [facility] Feb 22, 2024 12:00 AM Laboratory - Chemistry Order MICROALBUMIN CREATININE RATIO PANEL URINE (RANDOM) [facility] Feb 27, 2024 01:24 PM Consult Order COMMUNITY CARE-DENTAL GENERAL Cons Biology Laboratory [facility]'s [facility] [place] [facility] Social History: Smoking Status (Most current) [...] 11, 2022 02:50 PM [facility]ACCO [facility] Tobacco Use History This section includes a history of the smoking, or tobacco-related health factors, that were collected on or before the date of the Encounter. The data comes from the [place] facility where the Encounter took place. Date/Time Smoking Status/Tobacco Use Comment F acility Dec 05, 2019 01:53 PM VA-TOBACCO NEVER [facility]ED [facility] [place] [facility] May 26, 2016 02:32 PM LIFETIME NON-TOBACCO USER [facility] [place] [facility]
--- OUTSIDE RECORDS SUMMARY | 2024-03-10 09:30 | XMS_ITS ---
Author Organization [facility], Address [address] [facility] [place] [address] Care Team Providers Care Coffee Roaster Name Role Phone Arabella Nation [phone] ALLERGIES, ADVERSE REACTIONS, ALERTS None MEDICATIONS Medication Code Code System Start Date Stop Date Route Dosage Directions Fill Instructions traMADol HCL 50 MG TABS RxNorm 04/14/19 23 1 RxNorm Plaquenil 0 RxNorm oral metformin 0 RxNorm oral prednisone 354125 RxNorm 11/20/19 24 oral 1 trazodone 0 RxNorm oral prednisone 565423 RxNorm 10/05/19 23 oral 1 prednisone 641472 RxNorm 01/27/20 24 oral 1 sulfamethoxazo le-trimethopri m 283832 RxNorm 10/31/19 24 oral 1 erythromycin 585035 RxNorm 11/01/19 24 ophthalmic (eye) 0.5 Valtrex 274171 RxNorm 10/05/19 23 oral 1 Lexapro 0 RxNorm oral PROBLEMS Problem Name Code Code System Start Date End Date [facility] Depression, unspecified 21713142 [facility] Active Post-traumatic stress disorder (PTSD) 74979846 [facility] Active Type 2 diabetes mellitus 18908440 [facility] Active Varicella without complication 334434752 [facility] 10/04/2022 Resolved Zoster without complications 878092920 [facility] 10/04/2022 Resolved Contusion of unspecified front wall of thorax, initial encounter 62890038 [facility] 12/19/2022 Resolved Acute pharyngitis, unspecified 755678978 [facility] 10/31/2023 Resolved Nasal congestion 55712895 [facility] 10/31/2023 Res olved Otitis media, unspecified, right ear 4252765427004140 [facility] 10/31/2023 Resolved Unspecified conjunctivitis 84468147108408491 [facility] 2023 Inactive Systemic involvement of connective tissue, unspecified 73378914 [facility] Active Contusion of thorax, unspecified, initial encounter 75835734976235 [facility] 11/20/2023 Active [facility] 247450367 [facility] Pain in right [facility]2787519 [facility] A ctive Pain in left hand 55663314 [facility] 01/27/2024 Ac tive ENCOUNTERS Encounter Diagnosis Code Code System Date Stat us Varicella without complication 922714252 [facility] 2022 Active Zoster without complications 080481035 [facility] 10/05/19 23 Active IMMUNIZATIONS * None VITAL SIGNS Code Code System Vitals Name Date Value and Un its 8462-4 [facility] Blood Pressure-Diastolic 10/04/2022 83 mmHg 8480-6 [facility] Blood Pressure-Systolic 10/04/2022 1 21 mmHg 8867-4 [facility] Heart Rate 10/04/2022 91 /min 9279-1 [facility] Respiratory Rate 10/04/2022 18 /min 8310-5 inc Body Temperature 10/04/2022 97.6 F 65268-3 inc Oxygen Saturation 10/04/2022 99 % SOCIAL HISTORY * None PROCEDURES * None MEDICAL EQUIPMENT * Patient has no history of implantable devices ASSESSMENT * None TREATMENT PLAN Type Description Date MEDICATION Take 20 mg tablet 10/04/2022 MEDICATION Take 500 mg tablet 10/04/2022 MEDICATION Take 20 mg tablet 10/04/2022 MEDICATION Take 500 mg tablet 10/04/2022 APPOINTMENT If not feeling nitish r in 3 day(s), please see your primary care physician. If you do not have a primary care physician, please return to this clinic. 10/04/2022 Lab Tests None GOALS * None HEALTH CONCERNS * No Health Concerns FUNCTIONAL AND COGNITIVE STATUS * None CONSULTATION NOTES * None DISCHARGE SUMMARY NOTES * None HISTORY AND PHYSICAL NOTES * Reason for visit - Illness IMAGING NOTES * None LABORATORY REPORT NARRATIVE NOTES * None PATHOLOGY REPORT NARRATIVE NOTES * None PROGRESS NOTES * None
--- OUTSIDE RECORDS SUMMARY | 2024-03-10 09:30 | XMS_ITS ---
Author Organization [facility], Address [address] [place] [address] Care Team Providers Care Group Exercise Class Instructor Name Role Phone Jessica Begum [phone] ALLERGIES, ADVERSE REACTIONS, ALERTS None MEDICATIONS Medication Code Code System Start Date Stop Date Route Dosage Directions Fill Instructions traMADol HCL 50 MG TABS RxNorm 04/14/19 23 1 RxNorm Plaquenil 0 RxNorm oral metformin 0 RxNorm oral prednisone 824802 RxNorm 11/20/19 24 oral 1 trazodone 0 RxNorm oral prednisone 299101 RxNorm 10/05/19 23 oral 1 prednisone 867429 RxNorm 01/27/20 24 oral 1 sulfamethoxazo le-trimethopri m 063033 RxNorm 10/31/19 24 oral 1 erythromycin 088780 RxNorm 11/01/19 24 ophthalmic (eye) 0.5 Valtrex 692709 RxNorm 10/05/19 23 oral 1 Lexapro 0 RxNorm oral PROBLEMS Problem Name Code Code System Start Date End Date [facility] Depression, unspecified 41512564 [facility] Active Post-traumatic stress disorder (PTSD) 75917933 [facility] Active Type 2 diabetes mellitus 03603407 [facility] Active Varicella without complication 935648072 [facility] 10/04/2022 Resolved Zoster without complications 765948273 [facility] 10/04/2022 Resolved Contusion of unspecified front wall of thorax, initial encounter 00792146 [facility] 12/19/2022 Resolved Acute pharyngitis, unspecified 837798497 [facility] 10/31/2023 Resolved Nasal congestion 19950719 [facility] 10/31/2023 Res olved Otitis media, unspecified, right ear 7433747783580836 [facility] 10/31/2023 Resolved Unspecified conjunctivitis 52368241198707028 [facility] 2023 Inactive Systemic involvement of connective tissue, unspecified 11812109 [facility] Active Contusion of thorax, unspecified, initial encounter [facility]3053027077998 [facility] 11/20/2023 Active Chronic pain syndrome 886711976 [facility] 11/20/2023 Active Pain in right hand 40086180 [facility] 01/27/2024 [facility] ct[facility]25472 [facility] Ac tive ENCOUNTERS Encounter Diagnosis Code Code System Date Stat us Pain in right hand 91751706 [facility] 01/27/2024 Active Pain in left hand 50382152 [facility] 01/27/2024 Active IMMUNIZATIONS * None VITAL SIGNS Code Code System Vitals Name Date Value and Un its 8462-4 [facility] Blood Pressure-Diastolic 01/27/2024 80 mmHg 8480-6 [facility] Blood Pressure-Systolic 01/27/2024 1 24 mmHg 8867-4 [facility] Heart Rate 01/27/2024 83 /min 9279-1 [facility] Respiratory Rate 01/27/2024 17 /min 8310-5 [facility] Body Temperature 01/27/2024 98.1 F 68584-9 [facility] Oxygen Saturation 01/27/2024 99 % SOCIAL HISTORY * None PROCEDURES * None MEDICAL EQUIPMENT * Patient has no history of implantable devices ASSESSMENT * None TREATMENT PLAN Type Description Date MEDICATION Take 20 mg tablet 01/27/2024 ORDERS See your rail car painter/sandblaster for any further refills. 01/27/2024 APPOINTMENT If not feeling nitish r in 3 day(s), please see your primary care physician. If you do not have a primary care physician, please return to this clinic. 01/27/2024 Lab Tests None GOALS * None HEALTH CONCERNS * No Health Concerns FUNCTIONAL AND COGNITIVE STATUS * None CONSULTATION NOTES * None DISCHARGE SUMMARY NOTES * None HISTORY AND PHYSICAL NOTES * None IMAGING NOTES * None LABORATORY REPORT NARRATIVE NOTES * None PATHOLOGY REPORT NARRATIVE NOTES * None PROGRESS NOTES * None
--- OUTSIDE RECORDS SUMMARY | 2024-03-10 09:30 | XMS_ITS ---
Author Organization [facility], Address [address] [place] [address] Care Team Providers Care Flight Mechanic Name Role Phone Yue Wiley Unavailable [phone] ALLERGIES, ADVERSE REACTIONS, ALERTS None MEDICATIONS Medication Code Code System Start Date Stop Date Route Dosage Directions Fill Instructions traMADol HCL 50 MG TABS RxNorm 04/14/19 23 1 RxNorm Plaquenil 0 RxNorm oral metformin 0 RxNorm oral prednisone 951054 RxNorm 11/20/19 24 oral 1 trazodone 0 RxNorm oral prednisone 336067 RxNorm 10/05/19 23 oral 1 prednisone 081857 RxNorm 01/27/20 24 oral 1 sulfamethoxazo le-trimethopri m 978763 RxNorm 10/31/19 24 oral 1 erythromycin 813355 RxNorm 11/01/19 24 ophthalmic (eye) 0.5 Valtrex 687014 RxNorm 10/05/19 23 oral 1 Lexapro 0 RxNorm oral PROBLEMS Problem Name Code Code System Start Date End Date [facility] Depression, unspecified 65916850 [facility] Active Post-traumatic stress disorder (PTSD) 25144671 [facility] Active Type 2 diabetes mellitus 00208280 [facility] Active Varicella without complication 102640584 [facility] 10/04/2022 Resolved Zoster without complications 561690357 [facility] 10/04/2022 Resolved Contusion of unspecified front wall of thorax, initial encounter 51632449 [facility] 12/19/2022 Resolved Acute pharyngitis, unspecified 829201710 [facility] 10/31/2023 Resolved Nasal congestion 87039073 [facility] 10/31/2023 Res olved Otitis media, unspecified, right ear 7362185441075529 [facility] 10/31/2023 Resolved Unspecified conjunctivitis 46388647280315551 [facility] 2023 Inactive Systemic involvement of connective tissue, unspecified 14850057 [facility] Active Contusion of thorax, unspecified, initial encounter [facility]598659814 [facility] pain syndrome 747996956 [facility] Pain in right hand 59912281 [facility] 01/27/[facility]24 A ctive Pain in left hand 40789463 [facility] 01/27/2024 Ac tive ENCOUNTERS Encounter Diagnosis Code Code System Date Stat us Urinary tract infection, site not specified 09984038 [facility] Active Other hemorrhoids 42218645 [facility] Active IMMUNIZATIONS * None VITAL SIGNS Code Code System Vitals Name Date Value and Un its 8462-4 [facility] 09/05/2023 74 mmHg 8480-6 [facility] Blood Pressure-Systolic 09/05/2023 1 15 mmHg 8867-4 [facility] Heart Rate 09/05/2023 77 /min 9279-1 [facility] Respiratory Rate 09/05/2023 16 /min 8310-5 [facility] Body Temperature 09/05/2023 98.2 F 37851-7 [facility] Oxygen Saturation 09/05/2023 98 % SOCIAL HISTORY * None PROCEDURES * None RESULTS Test Code Code System Description Result Value Date Ref erence Range [facility] Glucose Negative 09/05/2023 [facility] Bilirubin Negative 09/05/2023 [facility] Ketone Negative 09/05/2023 [facility] Specific [place] 1.77482 09/05/2023 [facility] Blood Negative 09/05/2023 [facility] pH 5.84801 09/05/2023 [facility] Protein Negative 09/05/2023 [facility] Urobilinogen 0.44964 E.U./dL 09/05/2023 [facility] Nitrite Negative 09/05/2023 [facility] Leukocytes 1.33161 09/05/2023 [facility] Color Yellow 09/05/2023 [facility] Clarity Clear 09/05/2023 630-4 [facility] Urine Culture, Routine Final report 09/05/2023 [facility] Result 1 Results Receive d - See Detailed Notes 09/05/2023 MEDICAL EQUIPMENT * Patient has no history of implantable devices ASSESSMENT Assessment Please take the antibiotics as prescribed for the full duration of treatment. Your urine has been sent for culture. You have also been provided a prescription for Preparation H with hydrocortisone for your hemorrhoids. Apply twice daily to the hemorrhoids for 1 week. Follow-up with your primary care doctor as needed. Return for any new or worsening symptoms. TREATMENT PLAN Type Description Date MEDICATION Take 500 mg capsule 09/05/2023 MEDICATION Take 1 % cream 09/05/2023 APPOINTMENT If not feeling nitish r in 3 day(s), please see your primary care physician. If you do not have a primary care physician, please return to this clinic. 09/05/2023 Labs Tests Test Name Code Code System Date Clinitek Urinalysis, automated, without microscopy 810 03 CPT 09/05/2023 Urine Culture, Routine 655[address] [facility] 2023 GOALS * None HEALTH CONCERNS * No Health Concerns FUNCTIONAL AND COGNITIVE STATUS * None CONSULTATION NOTES * None DISCHARGE SUMMARY NOTES * None HISTORY AND PHYSICAL NOTES * None IMAGING NOTES * None LABORATORY REPORT NARRATIVE NOTES * None PATHOLOGY REPORT NARRATIVE NOTES * None PROGRESS NOTES * None
--- OUTSIDE RECORDS SUMMARY | 2024-03-10 09:30 | XMS_ITS ---
Author Organization [facility], Address [address] [place] [address] Care Team Providers Care Hospital Administrator Name Role Phone Yue Wiley Unavailable [phone] ALLERGIES, ADVERSE REACTIONS, ALERTS None MEDICATIONS Medication Code Code System Start Date Stop Date Route Dosage Directions Fill Instructions traMADol HCL 50 MG TABS RxNorm 04/14/19 23 1 RxNorm Plaquenil 0 RxNorm oral metformin 0 RxNorm oral prednisone 335719 RxNorm 11/20/19 24 oral 1 trazodone 0 RxNorm oral prednisone 279188 RxNorm 10/05/19 23 oral 1 prednisone 714249 RxNorm 01/27/20 24 oral 1 sulfamethoxazo le-trimethopri m 266324 RxNorm 10/31/19 24 oral 1 erythromycin 253415 RxNorm 11/01/19 24 ophthalmic (eye) 0.5 Valtrex 186029 RxNorm 10/05/19 23 oral 1 Lexapro 0 RxNorm oral PROBLEMS Problem Name Code Code System Start Date End Date [facility] Depression, unspecified 90438692 [facility] Active Post-traumatic stress disorder (PTSD) 57396767 [facility] Active Type 2 diabetes mellitus 04056513 [facility] Active Varicella without complication 888167953 [facility] 10/04/2022 Resolved Zoster without complications 052808403 [facility] 10/04/2022 Resolved Contusion of unspecified front wall of thorax, initial encounter 23305634 [facility] 12/19/2022 Resolved Acute pharyngitis, unspecified 791585221 [facility] 10/31/2023 Resolved Nasal congestion 62993394 [facility] 10/31/2023 Res olved Otitis media, unspecified, right ear 4344997499541682 [facility] 10/31/2023 Resolved Unspecified conjunctivitis 60938263449403089 [facility] 2023 Inactive Systemic involvement of connective tissue, unspecified 07008346 [facility] Active Contusion of thorax, unspecified, [facility] pain syndrome 065773054 [facility] 11/20/2023 Active Pain in right hand 45928731 [facility] 01/27/2024 A ctive [facility] left [facility]16 [facility] Ac tive ENCOUNTERS Encounter Diagnosis Code Code System Date Stat us Contusion of unspecified fro nt wall of thorax, initial encounter [facility]7552760 [facility] Active IMMUNIZATIONS * None VITAL SIGNS Code Code System Vitals Name Date Value and Un its 8462-4 [facility] Blood Pressure-Diastolic 12/19/2022 88 mmHg 8480-6 [facility] Blood Pressure-Systolic 12/19/2022 1 40 mmHg 8867-4 [facility] Heart Rate 12/19/2022 88 /min 9279-1 [facility] Respiratory Rate 12/19/2022 16 /min 8310-5 [facility] Body Temperature 12/19/2022 98.7 F 47563-7 [facility] Oxygen Saturation 12/19/2022 97 % SOCIAL HISTORY * None PROCEDURES * None MEDICAL EQUIPMENT * Patient has no history of implantable devices ASSESSMENT Assessment You were evaluated for an in jury to your ribs. You had x-rays done that do not appear to demonstrate any rib fracture or lung injuryYou have contused, or bruised, your chest wall and ribsThis can be a very painful injury. You may take Tylenol 650mg orally every 6 hours for pain. Be sure to take a few full, deep breaths 5-10x hourly until your pain is better and you are breathing normally again without pain. If you develop any fever, chill, cough, shortness of breath, difficulty breathing, abdominal pain, or any worsening symptoms please go to the Emergency Department TREATMENT PLAN Type Description Date APPOINTMENT If not feeling nitish r in 3 day(s), please see your primary care physician. If you do not have a primary care physician, please return to this clinic. 12/19/2022 Lab Tests None GOALS * None HEALTH CONCERNS * No Health Concerns FUNCTIONAL AND COGNITIVE STATUS * None CONSULTATION NOTES * None DISCHARGE SUMMARY NOTES * None HISTORY AND PHYSICAL NOTES * Reason for visit - Injury IMAGING NOTES * /[place] History: LEFT ANTERIOR/ LATERAL RIB PAIN AFTER FALLExaminationMultiple views of the left ribs and PA chestComparisons:None provided. FindingsThere is no rib fracture identified.The lungs are clear. No infiltrate or consolidation noted.No pleural effusions are seen.There is no pneumothorax present.IMPRESSION:No radiographic evidence of rib fracture. If there is persistent clinical concern recommend CT given relative insensitivity of radiographs in the assessment of nondisplaced rib fractures. LABORATORY REPORT NARRATIVE NOTES * None PATHOLOGY REPORT NARRATIVE NOTES * None PROGRESS NOTES * None
--- OUTSIDE RECORDS SUMMARY | 2024-03-10 09:30 | XMS_ITS ---
Author Organization [facility], Address [address] [place] [address] Care Team Providers Care Math And Sciences Department Chair Name Role Phone Yue Wiley Unavailable [phone] ALLERGIES, ADVERSE REACTIONS, ALERTS None MEDICATIONS Medication Code Code System Start Date Stop Date Route Dosage Directions Fill Instructions traMADol HCL 50 MG TABS RxNorm 04/14/19 23 1 RxNorm Plaquenil 0 RxNorm oral metformin 0 RxNorm oral prednisone 088639 RxNorm 11/20/19 24 oral 1 trazodone 0 RxNorm oral prednisone 152627 RxNorm 10/05/19 23 oral 1 prednisone 503300 RxNorm 01/27/20 24 oral 1 sulfamethoxazo le-trimethopri m 221742 RxNorm 10/31/19 24 oral 1 erythromycin 886481 RxNorm 11/01/19 24 ophthalmic (eye) 0.5 Valtrex 516114 RxNorm 10/05/19 23 oral 1 Lexapro 0 RxNorm oral PROBLEMS Problem Name Code Code System Start [place] [facility] [place], [place] 4738[place] [facility] Active Post-traumatic stress disorder (PTSD) 25213270 [facility] Active Type 2 diabetes mellitus 90367628 [facility] Active Varicella without complication 225407257 [facility] 10/04/2022 Resolved Zoster without complications 882246099 [facility] 10/04/2022 Resolved Contusion of unspecified front wall of thorax, initial encounter 41943503 [facility] 12/19/2022 Resolved Acute pharyngitis, unspecified 770282835 [facility] 10/31/2023 Resolved Nasal congestion 65185700 [facility] 10/31/2023 Res olved Otitis media, unspecified, right ear 8370364332743166 [facility] 10/31/2023 Resolved Unspecified conjunctivitis 39146680353217367 [facility] 2023 Inactive Systemic involvement of connective tissue, unspecified 92401303 [facility] Active Contusion of thorax, unspecified, initial encounter 18369133420454 [facility] 11/20/2023 Active Chronic pain syndrome 081346739 [facility] 11/20/2023 Active Pain in right hand 72768146 [facility] 01/27/2024 [facility]2002789 [facility] Ac tive ENCOUNTERS Encounter Diagnosis Code Code System Date Stat us Contusion of thorax, unspeci fied, initial encounter [id number] [facility] 11/20/2023 Active [facility] pain [facility] 069909902 [facility] Act alejandra IMMUNIZATIONS * None VITAL SIGNS Code Code System Vitals Name Date Value and Un its 8462-4 [facility] Blood Pressure-Diastolic 11/20/2023 85 mmHg 8480-6 [facility] Blood Pressure-Systolic 11/20/2023 1 25 mmHg 8867-4 [facility] Heart Rate 11/20/2023 74 /min 9279-1 [facility] Respiratory Rate 11/20/2023 16 /min 8310-5 [facility] Body Temperature 11/20/2023 97.6 F 30815-8 [facility] Oxygen Saturation 11/20/2023 98 % SOCIAL HISTORY * None PROCEDURES * None MEDICAL EQUIPMENT * Patient has no history of implantable devices ASSESSMENT * None TREATMENT PLAN Type Description Date MEDICATION Take 10 mg tablet 11/20/2023 ORDERS Although a fracture has not been identified on initial rib x-ray reading, radiologist interpretation is pending and sometimes rib fractures are not easily identified initially on x-ray. Is important you splint your ribs with pillow and take a deep breath every 15 minutes while awake. If you have sudden increased pain or difficulty breathing blood in your urine or develop abdominal pain directly to the emergency department for more complete evaluation.Also continue with your plans to follow-up with [facility] for your right knee injury 11/20/2023 APPOINTMENT Please follow up as directed with [facility] for as planned for your knee. 11/20/2023 Lab Tests None GOALS * None HEALTH CONCERNS * No Health Concerns FUNCTIONAL AND COGNITIVE STATUS * None CONSULTATION NOTES * None DISCHARGE SUMMARY NOTES * None HISTORY AND PHYSICAL NOTES * None IMAGING NOTES * /[place] History: Rib pain: The patient presents with a chief complaint of rib pain since approximately 2 weeks ago. Context - Initial History: The patient reports it was the result of an injury that occurredon 11/06/2023, which was not work related. This is not the result of a motor vehicle accident. Abnormal Exams: Muscular: abnormality of chest wall noted on palpation., chest wall tender over right ches t, Right midaxillary line chest wall tenderness. No crepitus no flail segment. Normal skin. No lower tenderness. No sternal tenderness. Clavicles without tenderness.ExaminationMultiple views of the right ribs and PA chestComparisons:None provided. FindingsThere is no rib fracture identified.The lungs are clear. No infiltrate or consolidation noted.No pleural effusions are seen.There is no pneumothorax present IMPRESSION:No evidence for rib fracture. LABORATORY REPORT NARRATIVE NOTES * None PATHOLOGY REPORT NARRATIVE NOTES * None PROGRESS NOTES * None
--- OUTSIDE RECORDS SUMMARY | 2024-03-10 09:30 | XMS_ITS ---
Author Organization [facility], Address [address] [place] [address] Care Team Providers Care Mold Cooler Name Role Phone OIsabelleIssac Silva Jr [facility] [phone] ALLERGIES, ADVERSE REACTIONS, ALERTS None MEDICATIONS Medication Code Code System Start Date Stop Date Route Dosage Directions Fill Instructions traMADol HCL 50 MG TABS RxNorm 04/14/19 23 1 RxNorm Plaquenil 0 RxNorm oral metformin 0 RxNorm oral prednisone 052359 RxNorm 11/20/19 24 oral 1 trazodone 0 RxNorm oral prednisone 299691 RxNorm 10/05/19 23 oral 1 prednisone 222759 RxNorm 01/27/20 24 oral 1 sulfamethoxazo le-trimethopri m 537973 RxNorm 10/31/19 24 oral 1 erythromycin 335649 RxNorm 11/01/19 24 ophthalmic (eye) 0.5 Valtrex 680450 RxNorm 10/05/19 23 oral 1 Lexapro 0 RxNorm oral PROBLEMS Problem Name Code Code System Start Date End Date [facility] Depression, unspecified 77084467 [facility] Active Post-traumatic stress disorder (PTSD) 45098865 [facility] Active Type 2 diabetes mellitus 47821564 [facility] Active Varicella without complication 378414989 [facility] 10/04/2022 Resolved Zoster without complications 924171271 [facility] 10/04/2022 Resolved Contusion of unspecified front wall of thorax, initial encounter 64615328 [facility] 12/19/2022 Resolved Acute pharyngitis, unspecified 912090034 [facility] 10/31/2023 Resolved Nasal congestion 52907853 [facility] 10/31/2023 Res olved Otitis media, unspecified, right ear 1048376910897468 [facility] 10/31/2023 Resolved Unspecified conjunctivitis 09103886456819783 [facility] 2023 Inactive Systemic involvement of connective tissue, unspecified 15250239 [facility] Active Contusion of thorax, unspecified, initial encounter 96660415227293 [facility] 11/20/2023 Active Chronic pain syndrome 374428214 [facility] 11/20/2023 Active [facility] right [facility]4079620 [facility] A ctive Pain in left hand 80481730 [facility] 01/27/2024 Ac tive ENCOUNTERS Encounter Diagnosis Code Code System Date Stat us Unspecified conjunctivitis [id number] [facility] 01/2024 Active IMMUNIZATIONS * None VITAL SIGNS Code Code System Vitals Name Date Value and Un its 8462-4 [facility] Blood Pressure-Diastolic 11/01/2023 73 mmHg 8480-6 [facility] Blood Pressure-Systolic 11/01/2023 1 16 mmHg 8867-4 [facility] Heart Rate 11/01/2023 83 /min 9279-1 [facility] Respiratory Rate 11/01/2023 18 /min 8310-5 [facility] Body Temperature 11/01/2023 96.3 F 72062-7 [facility] Oxygen Saturation 11/01/2023 97 % SOCIAL HISTORY * None PROCEDURES * None MEDICAL EQUIPMENT * Patient has no history of implantable devices ASSESSMENT * None TREATMENT PLAN Type Description Date MEDICATION Take 5 mg/gram (0.5 %) ointment 11/01/2023 APPOINTMENT If not feeling nitish r in 3 day(s), please see your primary care physician. If you do not have a primary care physician, please return to this clinic. 11/01/2023 Lab Tests None GOALS * None HEALTH CONCERNS * No Health Concerns FUNCTIONAL AND COGNITIVE STATUS * None CONSULTATION NOTES * None DISCHARGE SUMMARY NOTES * None HISTORY AND PHYSICAL NOTES * None IMAGING NOTES * None LABORATORY REPORT NARRATIVE NOTES * None PATHOLOGY REPORT NARRATIVE NOTES * None PROGRESS NOTES * None
--- OUTSIDE RECORDS SUMMARY | 2024-03-10 09:30 | XMS_ITS ---
Author Organization [facility], Address [address] [address] Care Team Providers Care Blurb Writer Name Role Phone Russell Ochoa Unavailable [phone] ALLERGIES, ADVERSE REACTIONS, ALERTS None MEDICATIONS Medication Code Code System Start Date Stop Date Route Dosage Directions Fill Instructions traMADol HCL 50 MG TABS RxNorm 04/14/19 23 1 RxNorm Plaquenil 0 RxNorm oral metformin 0 RxNorm oral prednisone 289953 RxNorm 11/20/19 24 oral 1 trazodone 0 RxNorm oral prednisone 525607 RxNorm 10/05/19 23 oral 1 prednisone 901211 RxNorm 01/27/20 24 oral 1 sulfamethoxazo le-trimethopri m 802476 RxNorm 10/31/19 24 oral 1 erythromycin 569763 RxNorm 11/01/19 24 ophthalmic (eye) 0.5 Valtrex 668115 RxNorm 10/05/19 23 oral 1 Lexapro 0 RxNorm oral PROBLEMS Problem Name Code Code System Start Date End Date [facility] Depression, unspecified 47676404 [facility] Active Post-traumatic stress disorder (PTSD) 73422840 [facility] Active Type 2 diabetes mellitus 07407760 [facility] Active Varicella without complication 824947665 [facility] 10/04/2022 Resolved Zoster without complications 112094596 [facility] 10/04/2022 Resolved Contusion of unspecified front wall of thorax, initial encounter 57038762 [facility] 12/19/2022 Resolved Acute pharyngitis, unspecified 085098069 [facility] 10/31/2023 Resolved Nasal congestion 61196004 [facility] 10/31/2023 Res olved Otitis media, unspecified, right ear 2005680742839161 [facility] 10/31/2023 Resolved Unspecified conjunctivitis 93733214357590763 [facility] 2023 Inactive Systemic involvement of connective tissue, unspecified 32497597 [facility] Active Contusion of thorax, unspecified, initial encounter 22512230579148 [facility] 11/20/2023 Active Chronic pain syndrome 495052441 [facility] 11/20/2023 Active Pain in right hand 37153407 [facility] 01/27/2024 A ctive Pain in left hand 38502999 [facility] 01/27/2024 Ac tive ENCOUNTERS Encounter Diagnosis Code Code System Date Stat Acute pharyngitis, unspecified 868288599 [facility] 2023 Active Nasal congestion 40112488 [facility] 10/31/2023 Active Otitis media, unspecified, right ear 5638828399879029 [facility] 10/31/2023 Active IMMUNIZATIONS * None VITAL SIGNS Code Code System Vitals Name Date Value and Un its 8462-4 [facility] Blood Pressure-Diastolic 10/31/2023 80 mmHg 8480-6 [facility] Blood Pressure-Systolic 10/31/2023 1 24 mmHg 8867-4 [facility] Heart Rate 10/31/2023 93 /min 9279-1 [facility] Respiratory Rate 10/31/2023 18 /min 8310-5 [facility] Body Temperature 10/31/2023 97.2 F 41490-5 [facility] Oxygen Saturation 10/31/2023 97 % SOCIAL HISTORY * None PROCEDURES * None RESULTS Test Code Code System Description Result Value Date Ref erence Range [facility] SARS-CoV-2 Not Detected 10/31/2023 Not De tected [facility] Flu A Not Detected 10/31/2023 Not Det ected [facility] Flu B Not Detected 10/31/2023 Not Det ected MEDICAL EQUIPMENT * Patient has no history of implantable devices ASSESSMENT * None TREATMENT PLAN Type Description Date MEDICATION Take 800-160 mg tablet 10/31/2023 ORDERS Use anything over-th e-counter that helps with the your congestion such as Claritin, Onelia, or Zyrtec. In addition you can use a saline nasal spray such as Xlear, Vicks, or Flonase. You should not use any more of your prednisone prescription until your symptoms of active infection resolve.You have an upper respiratory infection. This is an infection involving the nose, throat and larynx, almost always caused by a virus. The infection rarely spreads or leads to serious long-term problems. Since the infection is caused by a virus, antibiotics are not helpful. It may help your symptoms to use a decongestant nose spray to open the nasal passages and permit drainage. Afrin nasal spray (or a similar decongestant spray) can be used twice a day for up to four days. You may develop tolerance to it if used longer than this. You may take Tylenol 650mg orally every 6 hours or Motrin (advil) 600mg orally every 6 hours as needed. Please take the motrin with food. Over the counter Flonase nasal spray can help with any congestion/sinus pressure. With time this can also help alleviate ear pressure that occurs as a result of the congestion. Over the counter Xlear orOcean Mist Nasal Saline can be used a few times daily to help irrigate the nose/sinuses to help with congestion. Warm tea with honey can help the throat and cough. You may trial use of an over the counter decongestant such as Phenylephrine Sudafed in not contra-indicated by your medications and/or medical history. Ask your pharmacist if you are unsure.Return or get rechecked by your doctor if you get high or prolonged fever (over 101 F orally), worsening pain, swelling over your face or eyes, earache, shortness of breath or chest pain, severe headache, stiff neck, vomiting, or a rash. If you are not improving after 10 days of illness you should be re-evaluate. Respiratory tract infections are usually spread by coughing; the virus lands on surfaces and is then picked up on the hands and carried to the nose or mouth - so good hand washing is important to avoid spreading the virus. 10/31/2023 APPOINTMENT If not feeling nitish r in 3 day(s), please see your primary care physician. If you do not have a primary care physician, please return to this clinic. 10/31/2023 Labs Tests Test Name Code Code System Date Linda/Cepheid SARS-CoV-2 & Fl u A/B Multiplex Assay, Amplified Probe Molecular RT-PCR / NAAT [id number] [facility] 10/31/2023 GOALS * None HEALTH CONCERNS * No Health Concerns FUNCTIONAL AND COGNITIVE STATUS * None CONSULTATION NOTES * None DISCHARGE SUMMARY NOTES * None HISTORY AND PHYSICAL NOTES * None IMAGING NOTES * None LABORATORY REPORT NARRATIVE NOTES * None PATHOLOGY REPORT NARRATIVE NOTES * None PROGRESS NOTES * None
--- OUTSIDE RECORDS SUMMARY | 2024-03-10 09:30 | XMS_ITS ---
Author Name [facility] [place] [facility] [place] Address [address] [place] [address] Care Team Providers Care Explosive Operator Fuse Name Role Phone GARRETT GOOD Primary Care [...] Name Patient's Relationship to Policy [place] [facility] CE ORGANIZ HMO Oct 06, 2018 HMO [id number] MEREDITH KU NN PATIENT ANTHEM BCBS CT FEDERAL PREFERRED PROVIDER ORGANIZAT ION (PPO) BASIC FAMIL Y Jan 31, 2015 [id number] [phone] MEREDITH KU NN PATIENT ANTHEM BCBS OF CT (BLUECARD) HIGH DEDUCTIBL E HEALTH PLAN CLINI [facility] SUP HDHP Oct 06, 2018 [id number] [phone] MEREDITH KU NN PATIENT BCBS [place] HIGH DEDUCTIBL E HEALTH PLAN [facility]I [facility] [place] HDHP Oct 06, 2018 [id number] MEREDITH KU NN PATIENT BCBS OF [place] HIGH DEDUCTIBL E HEALTH PLAN CLINI CHRISTINE SUPP HDHP Oct 06, [id number] [phone] DELUISITOLY NN PATIENT [facility] CE ORGANIZ CLINI [facility] AND SUPPO RT Oct 06, [id number] [phone] DEMEREDITH JORGE NN PATIENT BCBS OF [facility] PREFERRED PROVIDER ORGANIZAT ION (PPO) BASIC FAMIL Y Jan 31, 2015 [id number] [phone] DEHNTAMEKALY NN PATIENT [place] FEPRX PLAN PRESCRIPT ION BCBS FEP Jan 31, 2015 [id number] MEREDITH KU NN PATIENT [place]-F EP BCBS PRESCRIPT ION BCBS FEP PLAN Jan 31, 2015 [id number] ELMIRALY NN PATIENT EXPRESS SCRIPTS PRESCRIPT ION HMO Oct 06, 2018 L4TA [id number] DELUISITOLY NN PATIENT EXPRESS SCRIPTS PRESCRIPT ION CLINI [facility] SUPPO RT Sep 19, 2018 L4TA [id number] DEHNTAMEKALY NN PATIENT EXPRESS SCRIPTS ([id number]) PRESCRIPT ION HDHP Oct 06, 2018 L4TA [id number] DEHNEHLY NN PATIENT EXPRESS SCRIPTS ([id number]) PRESCRIPT ION L4TA Oct 06, 2018 L4TA [id number] DEHNEHLY NN PATIENT EXPRESS SCRIPTS ([id number]) PRESCRIPT ION L4TA HDHP Oct 06, 2018 L4TA [id number] DEHNTAMEKALY NN PATIENT EXPRESS SCRIPTS RX PRESCRIPT ION CLINI [facility] SUPPO RT Oct 06, 2018 L4TA [id number] DEHNEH,LY NN PATIENT [id number] [facility] CE ORGANIZ CLINI [facility] AND SUPPO RT Oct 06, [id number] DENEREYDATAMEKALY NN PATIENT [id number] [facility] CE ORGANIZ CLINI CHRISTINE AND SUPPO RT Oct 06, [id number] DEHNEH,LY NN PATIENT G210 BCBS ([facility]) [facility] CE ORGANIZ CLINI CH[facility]STINE AND SUPPO RT Oct 06, 2018 [id number] DEHNEH,LY NN PATIENT G210 BCBS (PROFESSIO NAL) [facility] CE ORGANIZ CLINI CHRISTINE AND SUPPO RT Oct 06, [id number] DEHNEH,LY NN PATIENT MEDICARE (WNR) MEDICARE () PART A Nov 19, 2006 PART A [id number] DEHNEH,LY NN PATIENT MEDICARE (WNR) MEDICARE () PART A Nov 19, 2006 PART A [id number] DEHNEH,LY NN PATIENT MEDICARE (WNR) MEDICARE () PART B Nov 19, 2006 PART B [id number] DEHNEH,LY NN PATIENT MEDICARE (WNR) MEDICARE ) PART A Nov 19, 2006 PART A [id number] DEHNEH,LY NN PATIENT MEDICARE (WNR) MEDICARE () PART A Nov 19, 2006 PART A [id number] DEHNEH,LY NN PATIENT MEDICARE (WNR) MEDICARE () PART A Nov 19, 2006 PART A [id number] DEHNEH,LY NN PATIENT MEDICARE (WNR) MEDICARE () PART A Nov 19, 2006 PART A [id number] DEHNEH,LY NN PATIENT MEDICARE (WNR) MEDICARE () PART A Nov 19, 2006 PART A [id number] DEHNEH,LY NN PATIENT MEDICARE (WNR) MEDICARE () PART B Nov 19, 2006 PART B [id number] [phone] DEHNEH,LY NN PATIENT Selected Encounter This section includes the information on record at [facility] for the Encounter. Date/Time Encounter Type Encounter Description Reason Pro vider Source Dec 04, 2023 12:00 AM Outpatient Encounter COMMUNITY CARE CONSULT IHE Encounter Template Text not used by [facility] Plan of Treatment: Future Appointments (+ 6 months) and Future Tests (+/- 45 days) The Plan of Treatment section includes future care activities for the [facility] [place] [facility] This section includes future appointments and future orders which are active, pending or scheduled. Future Appointments This section includes appointments that were scheduled to occur 6 months from the date of the Encounter, up to a maximum of 20 appointments. The data comes from all [facility]. Appointment Date/Time Appointment Type Appointme nt Facility Name Dec 27, 2023 09:30 AM AMBULATORY - MEDICINE [facility] Feb 05, 2024 09:30 AM AMBULATORY - MEDICINE [facility] Feb 22, 2024 01:00 PM AMBULATORY - MEDICINE [facility] Feb 25, 2024 01:00 PM AMBULATORY - MEDICINE [facility] Feb 25, 2024 03:00 PM AMBULATORY - PSYCHIATRY [facility] Mar 10, 2024 09:15 AM AMBULATORY - MEDICINE [facility] Mar 13, 2024 03:00 PM AMBULATORY - MEDICINE [facility] Apr 03, 2024 02:30 PM [...] data comes from all [facility]. Test Date/Time Test Type Test Details Facility Name Nov 08, 2023 12:00 AM Laboratory - Chemistry Order MICROALBUMIN CREATININE RATIO PANEL URINE (RANDOM) [facility] Nov 08, 2023 12:00 AM Laboratory - Chemistry Order CORTISOL (AM) BLOOD (SST-SERUM) [facility] Nov 08, 2023 12:00 AM Laboratory - Chemistry Order DEXAMETHASONE (Q) BLOOD (RED-PLAIN) [facility] Nov 09, 2023 02:02 PM Consult Order COMMUNITY CARE-NEPHROLOGY Cons Blocker And Cutter Contact [employer] [facility] Dec 11, 2023 12:00 AM Laboratory - Chemistry Order OCCULT BLOOD FIT X1 SCREEN (MFP ONLY) [facility] Jan 01, 2024 04:51 PM Consult Order COMMUNITY CARE-GI GENERAL Cons Blocker And Cutter Contact [employer] [facility] Lab Results: +/- 30 days of the [...] Range Comment Nov 09, 2023 02:05 PM [facility] MICROALBUMIN CREATININE RATIO PANEL Spe cimen Type: URINE No comment entered. Ordering Provider: ELMER RO Report Released Date/Time: Nov 09, 2023 02:02 PM Reporting Lab: [facility] [address] [facility] [facility] [address] Performing Lab: [facility] [address] [facility] [facility] [address] MICROALBUMIN/C REATININE RATIO 9.4 mg/g 0-29.9 MICROALBUMIN,Q UANTITATIVE 2.0 mg/dL RR UNAVAIL CREATININE URINE 211.76 mg/dL Nov 08, 2023 12:07 PM [facility] MICROALBUMIN CREATININE RATIO PANEL Specimen Type: URINE No comment entered. Ordering Provider: RHYS TAN Report Released Date/Time: Nov 08, 2023 11:43 AM Reporting Lab: [facility] [address] [facility] [address] Performing Lab: [facility] [address] [facility] [facility] [address] MICROALBUMIN/C REATININE RATIO canc mg/g 0-29.9 MICROALBUMIN,Q UANTITATIVE < 0.5 mg/dL RR UNAVAIL CREATININE URINE 41.24 mg/dL Nov 07, 2023 03:36 PM [facility] TSH Specimen Type: SERUM Comment: , Tests performed on [employer] SN:[id number] (405) TSH within normal limits. Reflex testing not required. Ordering Provider: ANKIT FLORES Report Released Date/Time: Nov 07, 2023 03:20 PM Reporting Lab: [facility] [address] [address] Performing Lab: [facility] [address] [address] TSH 1.16 u[IU]/mL 0.35-5.00 Nov 07, 2023 03:36 PM [facility] ESR(NEW) Specimen Type: BLOOD Comment: Tests performed on [employer] ISED(405) Ordering Provider: ANKIT FLORES Report Released Date/Time: Nov 07, 2023 03:20 PM Reporting Lab: [facility] [address] [address] Performing Lab: [facility] [address] [address] ESR(NEW) 13 mm/h 0-30 Nov 07, 2023 03:36 PM [facility] CRP(INFLAMMATORY) Specimen Type: PLASMA Comment: , Tests performed on [employer] SN:[id number] (405) Ordering Provider: ANKIT FLORES Report Released Date/Time: Nov 07, 2023 03:20 PM Reporting Lab: [facility] [address] [facility] [address] [facility] Lab[facility] [address] [address] CRP(INFLAMMATO RY) 19.4 mg/L H 0.0-5.0 Nov 07, 2023 03:36 PM [facility] LIVER PROFILE Specimen Type: PLASMA Comment: , Tests performed on [employer] SN:[id number] (405) Ordering Provider: ANKIT FLORES Report Released Date/Time: Nov 07, 2023 03:20 PM Reporting Lab: [facility] [address] [address] Performing Lab: [facility] [address] [address] PROTEIN, TOTAL 7.1 g/dL 6.0-8.5 ALBUMIN 4.1 g/dL 3.2-5.0 BILIRUBIN, TOTAL 0.3 mg/dL 0.2-1.2 ALKALINE PHOSPHATASE 74 U/L 40-150 ALT(SGPT) 22 U/L 7-52 AST(SGOT) 20 U/L 5-34 FIB-4 SCORE 1.10 <2.67 Nov 07, 2023 03:36 PM [facility] CBC NO DIFF Specimen Type: BLOOD No comment entered. Ordering Provider: ANKIT FLORES Report Released Date/Time: Nov 07, 2023 03:20 PM Reporting Lab: [facility] [address] [facility] [address] Performing Lab: [facility] [address] [address] WBC 5.9 10*3/uL 4.5-11.0 RBC 4.22 10*6/uL 3.93-5.16 HGB 11.6 g/dL L 12-15.2 HEMATOCRIT 34.6 L 36.6-45.6 MCV 82.0 fL 82-99 MCH 27.5 pg 26.2-32.6 MCHC 33.5 g/dL 30.8-35.1 PLT 224 10*3/uL 140-360 MPV 9.8 fL 9.2-12.4 RDW 13.2 12.0-16.0 Nov 07, 2023 03:36 PM [facility] P4 GLU,BUN,CREAT,LYTES,CA Specimen Type: PLASMA Comment: , Tests performed on [employer] SN:[id number] (681) Ordering Provider: ANKIT FLORES Report Released Date/Time: Nov 07, 2023 03:20 PM Reporting Lab: [facility] [address] [facility] [address] Performing Lab: [facility] [address] [facility] [address] UREA NITROGEN 14 mg/dL 7-25 SODIUM 134 mmol/L L 135-145 POTASSIUM 4.6 mmol/L 3.5-5.0 CHLORIDE 102 mmol/L 100-110 CARBON DIOXIDE 24 mmol/L 20-30 ANION GAP 8 4-16 GLUCOSE 109 mg/dL H 65-100 CREATININE 1.21 mg/dL 0.50-1.50 CALCIUM 10.1 mg/dL 8.5-10.5 eGFR(CKD-EPI 2020) 52 L Nov 05, 2023 10:46 AM [facility] TSH Specimen Type: SERUM No comment entered. Ordering Provider: EMLER RO Report Released Date/Time: Nov 02, 2023 09:03 AM Reporting Lab: [place] [address] [address] Performing Lab: [address] [address] TSH 2.22 u[IU]/mL 0.35-5.00 Nov 05, 2023 10:46 AM [facility] BASIC METABOLIC PANEL (fasting) Specime n Type: SERUM No comment entered. Ordering Provider: ELMER RO Report Released Date/Time: Nov 02, 2023 09:03 AM Reporting Lab: [address] [address] Performing Lab: [address] [address] UREA NITROGEN 16 mg/dL 7-25 GLUCOSE 113 mg/dL H 65-100 SODIUM 134 mmol/L L 135-145 POTASSIUM 4.8 mmol/L 3.5-5.0 CHLORIDE 103 mmol/L 100-110 CO2 24 meq/L 20-30 CREATININE, Serum 1.24 mg/dL 0.50-1.40 eGFR(CKD-EPI 2020) 50 mL/min L >60 Nov 05, 2023 10:46 AM [facility] CBC AND DIFF (AUTO) Specimen Type: BLOOD No comment entered. Ordering Provider: ELMER RO Report Released Date/Time: Nov 02, 2023 09:03 AM Reporting Lab: [address] [address] Performing Lab: [address] [address] WBC 4.11 10*3/uL L 4.50-11.00 RBC 4.34 [...] 10*3/uL 0.00-0.00 Nov 05, 2023 10:46 AM [facility] LIPID PANEL FASTING Specimen Type: SERUM No comment entered. Ordering Provider: ADIA BERMUDEZ Report Released Date/Time: Oct 29, 2023 05:02 PM Reporting Lab: [place] [employer] [facility] [employer] [address] Performing Lab: [address] [address] CHOLESTEROL 224 mg/dL H TRIGLYCERIDE 158 mg/dL H 0-150 LDL calculated 136 mg/dL H 0-129 CHOL/HDL 4.0 HDL CHOLESTEROL 56 mg/dL 40-60 Nov 05, 2023 10:46 AM [facility] GLUCOSE FASTING Specimen Type: SERUM No comment entered. Ordering Provider: RHYS TAN Report Released Date/Time: Oct 18, 2023 12:52 PM Reporting Lab: [facility] [employer] [address] Performing Lab: [address] [address] GLUCOSE 115 mg/dL H 65-100 Nov 05, 2023 10:46 AM [facility] HEMOGLOBIN A1C PANEL Specimen Type: BLOOD [...] Oct 18, 2023 12:52 PM Reporting Lab: [address] [address] Performing Lab: [address] [address] HEMOGLOBIN A1C 5.9 H 4.0-5.6 Nov 05, 2023 10:46 AM [facility] LIVER FUNCTION Specimen Type: SERUM No comment entered. Ordering Provider: RHYS TAN Report Released Date/Time: Oct 18, 2023 12:52 PM Reporting Lab: [address] [address] Performing Lab: [address] [address] PROTEIN,TOTAL 7.0 g/dL 6.0-8.3 ALBUMIN 4.3 g/dL [...] 11, 2022 02:50 PM [facility] US[facility] Tobacco Use History This section includes a history of the smoking, or tobacco-related health factors, that were collected on or before the date of the Encounter. The data comes from the [place] facility where the Encounter took place. Date/Time Smoking Status/Tobacco Use Comment F acility Dec 05, 2019 01:53 PM [facility]-TO[facility]ACCO NEVER USED [facility] May 26, 2016 02:32 PM LIFETIME NON-TOBACCO USER [facility] Radiology Reports: +/- 30 days of [...] the Encounter. The data comes from all [place] treatment facilities. Date/Time Radiology Report Provider Source Nov 16, 2023 10:34 AM KNEE 3 VIEWS (RIGHT): INDY KU [id number] -[id number] F Exm Date: NOV 16, 2023@10:34 Req Phys: ELMER RO F Pat Loc: CWM/SO/PACT EIGHT WH (Req'g Lo Img Loc: [facility] Service: [place] [address] (Case [id number] COMPLETE) KNEE 3 VIEWS (RIGHT) (RAD Detailed) CPT:73868 Reason for Study: right knee pain and decreased rom, s/p fall Clinical History: h/o tkr Report Status: Verified Date Reported: NOV 16, 2023 Date Verified: NOV 16, 2023 Environmental Field Professional E-Sig:/ES/LOLA NUNEZ JR Report: Study: AP weight-bearing [...] Primary Interpreting Staff: LOLA NUNEZ JR, Radiologist (Environmental Field Professional) /LOLA RODRIGUEZ JR [facility] Nov 16, 2023 10:07 AM KIDNEY AND BLADDER ULTRASOUND: INDY KU [id number] -[id number] F Exm Date: NOV 16, 2023@10:07 Req Phys: VARGHESEPAOLO BARBOURMEN F Pat Loc: CWM/SO/PACT EIGHT WH (Req'g Lo Img Loc: ULTRASOUND Service: [place] [address] (Case [id number] COMPLETE) ULTRASOUND KIDNEYS (US Detailed) CPT:59696 Reason for Study: DROPPING IN GFR (Case 316 COMPLETE) ULTRASOUND URINARY BLADDER (US Detailed) CPT:85181 Clinical History: Report Status: Verified Date Reported: NOV 16, 2023 Date Verified: NOV 16, 2023 Environmental Field Professional E-Sig:/ES/LOLA NUNEZ JR Report: Study: Genitourinary ultrasound. [...] Primary Interpreting Staff: LOLA NUNEZ JR, Radiologist (Environmental Field Professional) /LOLA RODRIGUEZ JR [facility] Encounter Notes: All associated encounter notes This section contains the clinical notes associated to the Encounter. Date/Time Encounter Note(s) Provider Source Dec 04, 2023 12:00 AM NONVA CONSULT: LOCAL TITLE: COMMUNITY CARE-CONSULT RESULT NOTE STANDARD TITLE: NONVA CONSULT DATE OF NOTE: DEC 04, 2023 ENTRY DATE: MAR 03, 2024@12:32:08 AUTHOR: BOGHOSIAN,LEIGH-HENRY EXP COSIGNER: URGENCY: STATUS: COMPLETED VistA Imaging - Scanned Document SCANNED DOCUMENT SIGNATURE NOT REQUIRED Electronically Filed: 03/03/2024 by: JAMES HINKLE Mixer Tender JAMES HINKLE [facility]
== END 2024-03-10 09:48 | disposition home or self-care (01) ==
PROVIDERS: PCP Internal Medicine; Visit Provider Nurse Practitioner Family
DX: K59.04 Chronic idiopathic constipation (principal); Z98.890 Other specified postprocedural states; Z87.19 Personal history of other diseases of the digestive system
CPT/HCPCS: 99203

== ENCOUNTER 2024-03-10 08:59 | Outpatient (REF) | payer OTHER, SELFPAY ==
[2024-03-10 11:09] LABS: Alanine Aminotransferase 23 U/L (0-31); Albumin Level 4.6 g/dL (3.5-5.0); Alkaline Phosphatase 86 U/L (39-117); Aspartate Amino Transferase 20 U/L (5-31); Bilirubin Direct 0.1 mg/dL (0.0-0.5); Bilirubin Total 0.5 mg/dL (0.0-1.0); Total Protein 7.7 g/dL (6.5-8.0)
== END 2024-03-10 09:00 | disposition home or self-care (01) ==
LOC: HO.LAB 08:59
PROVIDERS: PCP Internal Medicine; Visit Provider Nurse Practitioner Family
DX: R74.01 Elevation of levels of liver transaminase levels (principal); K59.04 Chronic idiopathic constipation; Z98.890 Other specified postprocedural states; Z87.19 Personal history of other diseases of the digestive system
CPT/HCPCS: 36415; 80076; 99202